=== PATIENT | male | born 1955 | race Caucasian/White ===

== ENCOUNTER → 2017-07-13 | Outpatient (CLI) | payer BC ==
--- NOTE | 2017-07-13 14:26 | US ---
EXAMINATION TYPE: US abdomen complete DATE OF EXAM: 07/13/2017 COMPARISON: US abdomen 2015 CLINICAL HISTORY: R74.8 Abnormal levels of other serum enzymes. Occasional left flank pain, history o f cholecystectomy EXAM MEASUREMENTS: Liver Length: 17.7 cm Gallbladder Wall: surgically absent CBD: 0.4 cm Spleen: 11.1 cm Right Kidney: 11.2 x 4.8 x 5.7 cm Left Kidney: 11.6 x 5.4 x 5.8 cm Pancreas: visualized portions wnl, limited by overlying midline bowel gas Liver: measures in upper limits of normal, heterogeneous, increased attenuation, increased echogenic ity Gallbladder: surgically absent Evidence for sonographic Burt's sign: no CBD: visualized portions wnl, limited by overlying bowel gas Spleen: visualized portions wnl, limited by rib shadowing Right Kidney: wnl Left Kidney: 1.2cm cystic lesion mid pole is likely a simple cyst, and cortical medullary different iation is maintained bilaterally. Upper IVC: wnl Abd Aorta: visualized portions wnl, limited by overlying midline bowel gas There is no ascites evident. IMPRESSION: Correlate for hepatic steatosis, hepatocellular disease. Suspect hepatomegaly.
== END | disposition home or self-care (01) ==
LOC: RADUSWWP 10:48
PROVIDERS: ATTEND Internal Medicine
DX: R74.8 Abnormal levels of other serum enzymes (principal)
CPT/HCPCS: 76700

== ENCOUNTER 2017-11-23 09:52 | Day surgery (SDC) | payer BC ==
[2017-11-19 15:58] VITALS: BMI 26.9
[~2017-11-23 09:52] MED LIST: LACTATED RINGERS 1,000 ML IV SCH
[2017-11-23 10:47] VITALS: TEMP 98
[2017-11-23] MEDS ORDERED: LIDOCAINE 1% 20 ML VIAL (10MG/ML) FOR IV START INTRADERMA ONE (10:55)
[2017-11-23] MEDS ORDERED: PROPOFOL 10 MG/ML 20 ML VIAL IV ONE (11:07)
[2017-11-23] MEDS ORDERED: MIDAZOLAM 2 MG/2 ML VIAL ONE (11:07)
[2017-11-23] MEDS ORDERED: fentaNYL (PF) 50 MCG/ML 2 ML AMP ONE (11:07)
[2017-11-23 11:42] VITALS: RESP 18
--- NOTE | 2017-11-23 11:51 | P.PCN ---
Date of Procedure: 11/23/17 Procedure(s) Performed: Procedures: 1. Esophagogastroduodenoscopy and biopsy. 2. Colonoscopy and polypectomy. Preoperative diagnosis: Reflux symptoms despite therapy and history of colon polyps. Postoperative diagnosis: 1. Small sliding hiatal hernia with no obvious esophagitis or complicated reflux disease. 2. Mild antral gastritis. 3. Multiple small colon polyps snared but no large polyps or cancer. Preparation: HalfLytely prep. Sedation: Was provided by anesthesia. Brief clinical history: The patient is a 62-year-old male who is scheduled for this evaluation because of history of chronic reflux. The patient has been taking Protonix for several years and has intermittent breakthrough symptoms but no dysphagia, bleeding or weight loss. In addition, he has history of polyps. His last colonoscopy was in 2008. The patient has no bowel complaints or bleeding. Procedure: With the patient on his left lateral decubitus position and after informed consent and adequate sedation, I passed the Olympus-GIF 160 video upper endoscope through the cricopharyngeus down the esophagus. The esophagus did not show any obvious erosions or ulcers. No strictures or Smith's esophagus. There was a small sliding hiatal hernia and none sticky whitish material probably representing food debris. The endoscope was then passed into the stomach which was insufflated with air and inspected in detail including the retroflex view in the cardia. There was some minimal mottling and erythema in the antrum but no ulcers or erosions. Pyloric channel, duodenal bulb, post bulbar area and descending duodenum appeared within normal limits. Because of his symptoms, I obtained biopsies from the duodenum, antrum and esophagus then the endoscope was withdrawn and I proceeded with the colonoscopy. Perianal area did not show any fissures or fistulas. There were no masses felt on digital rectal examination. The Olympus CFQ 160L video colonoscope was then inserted in the rectum in the usual fashion and advanced to the cecum. There were 2 small distal sigmoid polyps and one small polyp around the hepatic flexure and a small polyp in the cecum and all 4 polyps were snared and retrieved by suction. There were no large polyps or cancer or any obvious diverticular disease or mucosal abnormalities. I retroflexed the endoscope in the rectum before the endoscope was withdrawn. The patient tolerated the procedure well. Plan: The patient was reassured. Discussed antireflux diet and measures. Will await pathology results and I anticipate repeating his colonoscopy in 5 years. He will follow up with you as planned and I will be happy to see in the office if his symptoms persist.
[2017-11-23 12:02] VITALS: BP 154/78; PULSE 78
== END 2017-11-23 12:24 | disposition home or self-care (01) ==
LOC: ORWHC2ENDO 09:52
DX: Z12.11 Encounter for screening for malignant neoplasm of colon (principal); D12.0 Benign neoplasm of cecum; D12.3 Benign neoplasm of transverse colon; D12.5 Benign neoplasm of sigmoid colon; K29.50 Unspecified chronic gastritis without bleeding; K21.9 Gastro-esophageal reflux disease without esophagitis; K44.9 Diaphragmatic hernia without obstruction or gangrene; M19.90 Unspecified osteoarthritis, unspecified site; I10 Essential (primary) hypertension; E78.5 Hyperlipidemia, unspecified; Z88.2 Allergy status to sulfonamides; Z86.010 Personal history of colon polyps; Z79.82 Long term (current) use of aspirin; Z79.899 Other long term (current) drug therapy
CPT/HCPCS: 88305; 45385; 43239; J2250; J3010; J2704

== ENCOUNTER → 2019-02-28 | Outpatient (CLI) | payer MEDICARE, BC ==
--- NOTE | 2019-03-01 07:22 | US ---
EXAMINATION TYPE: US venous doppler duplex LE RT DATE OF EXAM: 02/28/2019 4:57 PM COMPARISON: NONE CLINICAL HISTORY: I80.9 Phlebitis and thrombophlebitis of unspecifie. arthritis on right knee, pain, no h/o dvt SIDE PERFORMED: Right TECHNIQUE: The lower extremity deep venous system is examined utilizing real time linear array sonog avani with graded compression, doppler sonography and color-flow sonography. VESSELS IMAGED: External Iliac Vein (EIV) Common Femoral Vein Deep Femoral Vein Greater Saphenous Vein * Femoral Vein Popliteal Vein Small Saphenous Vein * Proximal Calf Veins (* superficial vessels) Grayscale, color doppler, spectral doppler imaging performed of the deep veins of the right lower ext remity. There is normal flow, compressibility, vascular waveforms. Right Leg: Appears negative for DVT called cell number on order and left voice message IMPRESSION: No sonographic evidence of deep venous thrombosis within the right lower extremity.
== END | disposition home or self-care (01) ==
LOC: RADUSWWP 16:38
PROVIDERS: ATTEND Physical Medicine & Rehabilitation
DX: M17.0 Bilateral primary osteoarthritis of knee (principal); I80.9 Phlebitis and thrombophlebitis of unspecified site; M43.16 Spondylolisthesis, lumbar region; M47.816 Spondylosis without myelopathy or radiculopathy, lumbar region; M51.26 Other intervertebral disc displacement, lumbar region; M51.36 Other intervertebral disc degeneration, lumbar region; M54.16 Radiculopathy, lumbar region; M48.062 Spinal stenosis, lumbar region with neurogenic claudication

== ENCOUNTER 2021-03-11 07:00 | Day surgery (SDC) | payer MEDICARE, BC ==
[2021-03-07 15:13] VITALS: BMI 25.0
[~2021-03-11 07:00] MED LIST changes: +LIDOCAINE 1% (10MG/ML) FOR IV START INTRADERMA PRN
[2021-03-11 07:41] VITALS: TEMP 97.2
[2021-03-11] MEDS ORDERED: LABETALOL 5 MG/ML VIAL MDV ONE (08:11)
[2021-03-11] MEDS ORDERED: PROPOFOL 10 MG/ML 20 ML VIAL IV ONE (08:11)
[2021-03-11] MEDS ORDERED: LIDOCAINE 1% INJ 10MG/ML (20 ML MDV) ONE (08:11)
--- NOTE | 2021-03-11 08:39 | P.PCN ---
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 He and underwent an Upper endoscopy done at [facility] and was noted to have esophageal varices for which she underwent esophageal variceal ligation. He scheduled for repeat upper endoscopy as a part of follow- up of esophageal varices.. PROCEDURE PERFORMED: Esophagogastroduodenoscopy with esophageal variceal ligation PREOPERATIVE DIAGNOSIS: Follow-up esophageal varices. IV sedation per anesthesia. PROCEDURE: After informed consent was obtained, the patient was brought into the endoscopy unit. IV sedation was administered by Anesthesia under continuous monitoring. Initially the Olympus GIF-140 video endoscope was inserted into the mouth. Esophagus intubated without any difficulty. It was gradually advanced into the stomach and duodenum and carefully examined. The bulb and the second part of the duodenum appeared normal. The scope at this time was withdrawn to the stomach, adequately insufflated with air, and upon careful examination, mucosa of the antrum, we normal. In the body the stomach there was changes consistent with mild portal hypertensive gastropathy. On retroflexion the fundus appeared normal. The scope was then withdrawn into the esophagus. The GE junction was located at 39 cm from the incisors. There were large mid and distal esophageal varices seen. The rest of the esophagus appeared normal. There were no erosions or ulcerations seen . At this time the scope was removed and esophageal variceal ligation equipment was inserted inserted the tip of the scope and esophagus intubated without any difficulty and using suction total of 5 bands were deployed in the mid and distal esophageal varices. The patient tolerated the procedure well. IMPRESSION: 1. Large mid and distal esophageal varices status post variceal ligation as described above. 2. Mild portal hypertensive gastropathy. RECOMMENDATIONS: The findings of this examination were discussed with the patient as well as his family. He will continue on proton 10 mg 3 times daily and will plan a repeat upper endoscopy in 6 months..
[2021-03-11] MEDS ORDERED: hydrALAZINE HCL 20 MG/ML 1 ML VIAL ONE (09:14)
[2021-03-11] MEDS: hydrALAZINE HCL 20 MG/ML 1 ML VIAL IV ONE ×2 (09:20→09:30)
[2021-03-11 09:30] VITALS: RESP 16
[2021-03-11 10:01] VITALS: BP 182/77; PULSE 98
== END 2021-03-11 10:19 | disposition home or self-care (01) ==
LOC: ORWHC2ENDO 07:00
PROVIDERS: ATTEND Internal Medicine Gastroenterology
DX: K70.30 Alcoholic cirrhosis of liver without ascites (principal); I85.10 Secondary esophageal varices without bleeding; K76.6 Portal hypertension; K31.89 Other diseases of stomach and duodenum; I10 Essential (primary) hypertension; E78.5 Hyperlipidemia, unspecified; Z79.899 Other long term (current) drug therapy
CPT/HCPCS: 43255; J0360; J2001; J2704

== ENCOUNTER 2021-08-26 07:41 | Day surgery (SDC) | payer MEDICARE, BC ==
[2021-08-25 12:45] VITALS: BMI 26.6
[~2021-08-26 07:41] MED LIST changes: -LIDOCAINE 1% (10MG/ML) FOR IV START INTRADERMA PRN
[2021-08-26 08:07] VITALS: TEMP 97.8
[2021-08-26] MEDS ORDERED: PROPOFOL 10 MG/ML 20 ML VIAL IV ONE (08:47)
--- NOTE | 2021-08-26 09:01 | P.PCN ---
Date of Procedure: 08/26/21 Procedure(s) Performed: BRIEF HISTORY: Patient is a 66-year-old, pleasant, white male with history of colic cirrhosis of the liver and prior history of esophageal variceal bleeding is scheduled for an upper endoscopy with variceal ligation. Last EGD with variceal ligation was in February 2021.. PROCEDURE PERFORMED: Esophagogastroduodenoscop with variceal ligation y. PREOPERATIVE DIAGNOSIS: . Follow-up esophageal varices IV sedation per anesthesia. PROCEDURE: After informed consent was obtained, the patient was brought into the endoscopy unit. IV sedation was administered by Anesthesia under continuous monitoring. Initially the Olympus GIF-140 video endoscope was inserted into the mouth. Esophagus intubated without any difficulty. It was gradually advanced into the stomach and duodenum and carefully examined. The bulb and the second part of the duodenum appeared normal. The scope at this time was withdrawn to the stomach, adequately insufflated with air, and upon careful examination, mucosa of the antrum, body, anus consistent with portal hypertensive gastropathy. Mucosa of the cardia and the fundus appeared normal. gastric varices identified.The scope was then withdrawn into the esophagus. The GE junction was located at 39 cm from the incisors. . A small mid and distal esophageal varices seen.The esophagus appeared normal. There were no erosions or ulcerations seen at this time the scope was removed and esophageal variceal ligation equipment was introduced onto the tip of the scope and esophagus reintubated without any difficulty. The scope was gradually advanced into the distal esophagus. Total of 4 bands were deployed in the mid and distal esophageal varices. Patient tolerated the procedure well. IMPRESSION: 1. Small mid and distal esophageal varices status postligation as described above 2. Moderate portal hypertensive gastropathy. RECOMMENDATIONS: The findings of this examination were discussed with the patient [as well as his family. He was advised to continue with Inderal 10 mg 3 times daily and will plan a repeat upper endoscopy with variceal ligation in 1 year.
[2021-08-26] MEDS ORDERED: hydrALAZINE HCL 20 MG/ML 1 ML VIAL ONE (09:32)
[2021-08-26] MEDS ORDERED: hydrALAZINE HCL 20 MG/ML 1 ML VIAL IV ONE ×2 (09:35→09:55)
[2021-08-26 09:44] VITALS: RESP 16
[2021-08-26 10:09] VITALS: BP 183/72; PULSE 74
== END 2021-08-26 10:30 | disposition home or self-care (01) ==
LOC: ORWHC2ENDO 07:41
PROVIDERS: ATTEND Internal Medicine Gastroenterology
DX: I85.00 Esophageal varices without bleeding (principal); K74.60 Unspecified cirrhosis of liver; K76.6 Portal hypertension; K31.89 Other diseases of stomach and duodenum
CPT/HCPCS: 43244; J0360; J2704

== ENCOUNTER 2021-10-15 05:52 | Day surgery (SDC) | payer MEDICARE, BC ==
[2021-10-10 15:37] VITALS: BMI 27.3
--- NOTE | 2021-10-14 19:20 | HP ---
HISTORY AND PHYSICAL DATE OF SURGERY: 10/15/2021 Dion Kennedy is a 66-year-old gentleman seen with progressive symptomatic left knee osteoarthritis. We discussed options for treatment. He elected to proceed with left total knee arthroplasty. Consent regarding the procedure was obtained. Clearance was provided. PAST MEDICAL HISTORY: Hypertension, hyperlipidemia, gastroesophageal reflux disease. PAST SURGICAL HISTORY: Cholecystectomy, knee arthroscopy, wisdom tooth extraction. DAILY MEDICATIONS: Allopurinol, losartan, omeprazole, vitamins. ALLERGIES: SULFA. SOCIAL HISTORY: He denies tobacco use. PHYSICAL EVALUATION OF THE LEFT KNEE: His range of motion is zero to 120. He has a large effusion. Tenderness, medial joint line, with a positive medial Pepe's. Ligaments stable. Hip rotation without pain. Distal neurovascular exam intact. Radiographs of the left knee revealed severe osteoarthritic changes. IMPRESSION: 1. Left knee osteoarthritis. 2. Hypertension. 3. Hyperlipidemia. 4. Gastroesophageal reflux disease. PLAN: Left total knee arthroplasty. MMODL / IJN: [id number] /
[~2021-10-15 05:52] MED LIST changes: +ACETAMINOPHEN TAB 500 MG TAB PO PRN; +DEXAMETHASONE SOD PHOSPHATE 4 MG/ML 1 ML VIAL IV ONE; +LIDOCAINE 1% (10MG/ML) FOR IV START INTRADERMA PRN; +MELOXICAM 7.5 MG TAB PO PRN; +MIDAZOLAM 2 MG/2 ML VIAL IV PRN; +ONDANSETRON 4 MG/2 ML VIAL IVP ONE; +TRANEXAMIC ACID IN NACL,ISO-OS 1,000 MG in SALINE 1 100ML.BAG IVPB PRN
[2021-10-15] MEDS ORDERED: fentaNYL (PF) 50 MCG/ML 2 ML AMP IVP PRN (07:00)
[2021-10-15] MEDS ORDERED: HYDROmorphone 0.5 MG/0.5 ML SYRINGE IVP PRN ×4 (07:00→09:18)
[2021-10-15] MEDS ORDERED: MIDAZOLAM 2 MG/2 ML VIAL IVP ONE (07:09)
[2021-10-15] MEDS ORDERED: fentaNYL (PF) 50 MCG/ML 2 ML AMP IVP ONE (07:09)
[2021-10-15] MEDS ORDERED: fentaNYL (PF) 50 MCG/ML 2 ML AMP ONE (07:26)
[2021-10-15] MEDS ORDERED: PHENYLEPHRINE-0.9% NACL SYG 1,000 MCG/10 ML SYRINGE ONE (07:26)
[2021-10-15] MEDS ORDERED: HYDROmorphone (PF) 1 MG/ML ONE (07:26)
[2021-10-15] MEDS ORDERED: ROPIVACAINE 5 MG/ML 30 ML VIAL ONE (07:26)
[2021-10-15] MEDS ORDERED: PROPOFOL 10 MG/ML 20 ML VIAL IV ONE (07:26)
[2021-10-15] MEDS ORDERED: SUCCINYLCHOLINE CHLORIDE 100 MG/5 ML SYR IV ONE (07:26)
[2021-10-15] MEDS ORDERED: MIDAZOLAM 2 MG/2 ML VIAL ONE (07:26)
[2021-10-15] MEDS ORDERED: TRANEXAMIC ACID IN NACL,ISO-OS 1,000 MG/100 ML BAG ONE (07:26)
[2021-10-15] MEDS ORDERED: HYDROcodone/APAP 7.5-325MG 1 EACH TAB PO PRN (09:18)
[2021-10-15] MEDS ORDERED: NALOXONE 0.4 MG/ML 1 ML VIAL IV PRN (09:18)
[2021-10-15] MEDS ORDERED: ONDANSETRON 4 MG/2 ML VIAL IVP PRN (09:18)
[2021-10-15] MEDS ORDERED: HYDROcodone/APAP 5-325MG 1 EACH TAB PO PRN (09:18)
--- NOTE | 2021-10-15 09:18 | P.OP ---
Date of Procedure: 10/15/21 Preoperative Diagnosis: Left knee osteoarthritis Postoperative Diagnosis: Left knee osteoarthritis Procedure(s) Performed: Left total knee arthroplasty Implants: 1. Depuy attune size 6 left cruciate retaining cemented femur 2. Depuy attune size 7 fixed bearing cemented tibial baseplate 3. Depuy attune size 6 fixed bearing cruciate retaining 14 mm polyethylene tibial insert 4. Depuy attune 38 mm all polyethylene cemented patella Anesthesia: GETA, regional (Adductor canal catheter, Ipack block) Surgeon: Damien Bishop Director Customer #1: Gamaliel Ferraro Estimated Blood Loss (ml): 42 Pathology: other (Bone) Condition: stable Disposition: PACU Indications for Procedure: 66-year-old patient seen with symptomatic left knee osteoarthritis. After treatment options were discussed, he elected to proceed with total knee art hroplasty. Operative Findings: See description of procedure Description of Procedure: Patient was taken to the operative suite after having an adductor canal catheter placed by the department of anesthesia as well as an Ipack block for postoperative pain management. Patient underwent a general anesthetic by the department of anesthesia. Patient was given preoperative IV intake antibiotics and TXA. A well-padded tourniquet was placed about the [] lower extremity. The lower extremity was then prepped and draped in the normal sterile orthopedic fashion. The extremity was elevated, a tourniquet was insufflated to 300. A standard anterior incision was made sharply through skin. Dissection was taken down through the subcutaneous soft tissues down to the extensor mechanism. A medial arthrotomy was performed, patella was everted and knee was flexed. There was advanced osteoarthritis noted. I introduced my distal intramedullary femor al drill. I then introduced the distal femoral cutting jig. Demar SHABAZZ secured the cutting jig with 2 pins. I held retractors in position while Demar SHABAZZ performed the distal femoral resection through the guide area we now removed her distal femoral cutting guide. We now placed our 4-in-1 femoral cutting block and positioned and it was secured with 2 pins by Demar SHABAZZ while I held the block in position. The distal femoral finishing was now completed. A proximal tibial cutting guide was positioned. I held the guide in the appropriate position with both hands well Demar SHABAZZ inserted stabilizing pins into the guide. Proximal tibial cut was made. We now placed a trial femoral component into position, along with an appropriate size tibial tray and insert. We now took the knee through range of motion and had full extension good flexion and good overall soft tissue balance noted. The patella was everted and stabilized with 2 towel clips held by Demar SHABAZZ while I performed a flush with patellar quad tendon utilizing a fresh sawblade. We templated the patella, appropriate drill holes were made. An appropriate trial patella was positioned, knee was taken through full range of motion with the patella tracking very nicely. The trial patella was removed. Drill holes were made through the femoral component. All trial components were removed after marking off the appropriate rotation of the tibia. Retractors were now positioned along the proximal tibia. An appropriate keel punch was made with the appropriate size tibial guide by myself on Demar SHABAZZ assisted by holding retractors. At this point appropriate size implants were chosen and opened. The joint was irrigated copiously with pulse lavage mechanical irrigation. The posterior capsule was infiltrated with local analgesic. The wound was irrigated with pulse lavage mechanical irrigation. We mixed antibiotic methylmethacrylate. We placed the knee into flexion. We placed multiple retractors assisted by Demar SHABAZZ to expose the proximal tibia. Once the methyl methacrylate was ready, the tibial component was cemented into place removing any excess methylmethacrylate form by both myself and Demar SHABAZZ. The femoral component was cemented into place removing the removing any excess methylmethacrylate performed by both myself and Demar SHABAZZ. We then inserted the appropriate size polyethylene tibial insert. We made sure that it was locked into position. We took the knee into full extension, and then back in a flexion making sure we had removed any excess methylmethacrylate. The patellar component was then cemented down and secured with clamp. Excess methylmethacrylate removed. We kept the knee in full extension, patellar clamp in position until methylmethacrylate had hardened. Once it had hardened the patellar clamp was removed. The knee was taken through full range of motion. The patella tracked nicely. There was good soft tissue balancing. The tourniquet was now released. Additional hemostasis was achieved via electrocautery. A second gram of TXA was given. The wound again was irrigated with pulse lavage mechanical irrigation. The superficial soft tissues were infiltrated local analgesic. The extensor mechanism was repaired with Ethibond. We checked the repair with range of motion and it was stable. The subcutaneous soft tissues were repaired with Vicryl in layers. The skin was approximated with pernio/Dermabond. Sterile dressings were applied followed by loose web roll and Todd bandage. The patient was transferred to a bed, and taken to recovery in stable and satisfactory condition. Demar SHABAZZ assisted with this complex procedure.
[2021-10-15 09:40] VITALS: TEMP 97.5
[2021-10-15] MEDS ORDERED: ROPIVACAINE 0.2%-NS ON-Q PUMP 2 MG/ML EACH MISCELLANE ONE (09:51)
--- NOTE | 2021-10-15 09:56 | P.ANPRN ---
Procedure Note - Anesthesia - Nerve Block Performed Left Adductor Canal Infusion Time Out Performed: Yes (0708) Date of Procedure: 10/15/21 Procedure Start Time: 07:09 Procedure Stop Time: 07:14 Location of Patient: PreOp Indication: Acute Post-Operative Pain, Requested by Surgeon Specifically requested for management of pain by DrIrma: Damien Bishop Sedation Type: Sedate with meaningful contact maintained Preparation: Sterile Prep, Sterile Dressing Position: Supine Catheter Depth at Skin (cm): 7 Catheter: Indwelling Needle Types: Pajunk Needle Gauge: 21 Ultrasound used to visualize needle placement: Yes Ultrasound used to observe medication spread: Yes Injectate: 0.5% Ropivacaine (see comment for volume) (20CC) Blood Aspirated: No Pain Paresthesia on Injection Noted: No Resistance on Injection: Normal Image Stored and Saved: Yes Events: Uneventful and Well Tolerated
--- NOTE | 2021-10-15 09:57 | P.ANPRN ---
Procedure Note - Anesthesia - Nerve Block Performed Left iPack Single Time Out Performed: Yes (708) Date of Procedure: 10/15/21 Procedure Start Time: 07:15 Procedure Stop Time: 07:19 Location of Patient: PreOp Indication: Acute Post-Operative Pain, Requested by Surgeon Specifically requested for management of pain by DrIrma: Damien Bishop Sedation Type: Sedate with meaningful contact maintained Preparation: Sterile Prep Position: Supine Catheter: None Needle Types: Pajunk Needle Gauge: 21 Ultrasound used to visualize needle placement: Yes Ultrasound used to observe medication spread: Yes Injectate: 0.5% Ropivacaine (see comment for volume) (20CC) Blood Aspirated: No Pain Paresthesia on Injection Noted: No Resistance on Injection: Normal Image Stored and Saved: Yes Events: Uneventful and Well Tolerated
[2021-10-15] MEDS ORDERED: hydrALAZINE HCL 20 MG/ML 1 ML VIAL IVP ONE (10:00)
--- NOTE | 2021-10-15 10:09 | XR ---
EXAMINATION TYPE: XR knee limited LT DATE OF EXAM: 10/15/2021 COMPARISON: None HISTORY: Postop left knee TECHNIQUE: 2 view left knee FINDINGS: Tibial femoral compartments are present. Post surgical soft tissue changes are present. No acute fractures or dislocations are evident. Vascular calcification is noted. IMPRESSION: 1. No acute fractures post left knee replacement.
[2021-10-15] MEDS: LACTATED RINGERS 1,000 ML IV ONE ×2 (10:11→10:27)
[2021-10-15] MEDS ORDERED: LABETALOL 5 MG/ML VIAL MDV IVP ONE (11:25)
[2021-10-15] MEDS ORDERED: ONDANSETRON 4 MG/2 ML VIAL IVP ONE (12:44)
[2021-10-15 13:58] VITALS: BP 183/79; PULSE 78; RESP 17
== END 2021-10-15 14:15 | disposition home health service (06) ==
LOC: OR 05:52
PROVIDERS: ATTEND Orthopaedic Surgery
DX: M17.12 Unilateral primary osteoarthritis, left knee (principal); I10 Essential (primary) hypertension; E78.5 Hyperlipidemia, unspecified; K21.9 Gastro-esophageal reflux disease without esophagitis; K74.60 Unspecified cirrhosis of liver; Z90.49 Acquired absence of other specified parts of digestive tract; Z98.890 Other specified postprocedural states; Z79.899 Other long term (current) drug therapy; Z88.2 Allergy status to sulfonamides
CPT/HCPCS: 97116; 97162; 64999; 64448; 76942; 88300; 73560; 27447; C1776; C1713 ×2; J2250; J0360; J1100; J0690; J2405; J3010; J1170; J2795 ×2; J2370; J0330; J2704

== ENCOUNTER 2023-02-02 10:20 | Day surgery (SDC) | payer MEDICARE, BC ==
[2023-01-28 15:51] VITALS: BMI 28.1
[~2023-02-02 10:20] MED LIST changes: -ACETAMINOPHEN TAB 500 MG TAB PO PRN; -DEXAMETHASONE SOD PHOSPHATE 4 MG/ML 1 ML VIAL IV ONE; -MELOXICAM 7.5 MG TAB PO PRN; -MIDAZOLAM 2 MG/2 ML VIAL IV PRN; -ONDANSETRON 4 MG/2 ML VIAL IVP ONE; -TRANEXAMIC ACID IN NACL,ISO-OS 1,000 MG in SALINE 1 100ML.BAG IVPB PRN
[2023-02-02 11:35] LABS: Glucose,Whole Blood 141 mg/dL (70-110)
[2023-02-02 11:37] VITALS: RESP 16; TEMP 98
[2023-02-02] MEDS ORDERED: PROPOFOL 10 MG/ML 20 ML VIAL IV ONE (12:24)
[2023-02-02] MEDS ORDERED: LIDOCAINE 2% (PF) 20 MG/ML 5 ML VIAL ONE (12:24)
--- NOTE | 2023-02-02 12:49 | P.PCN ---
Date of Procedure: 02/02/23 Procedure(s) Performed: Brief history: Patient is a pleasant 67-year-old white male scheduled for an elective upper endoscopy as well as colonoscopy as a part of evaluation of esophageal varices for which she underwent variceal ligation in about 2021. He scheduled for colonoscopy as part of evaluation of prior history of colon polyps. Last colonoscopy was 5 years ago. Procedure performed: Esophagogastroduodenoscopy with variceal ligation Colonoscopy with snare polypectomy Preoperative diagnosis: Follow-up esophageal varices History of colon polyps Anesthesia: MAC Procedure: After informed consent was obtained from the patient was brought into the endoscopy unit and IV sedation was administered by anesthesia under continuous monitoring. Initially upper endoscopy was done. The Olympus GF 160 video endoscope was inserted inserted into the mouth and esophagus intubated without any difficulty and was gradually advanced into the stomach and duodenum and carefully examined. The bulb and second part of the duodenum appeared normal. The scope was then withdrawn into the stomach adequately insufflated with air and upon careful examination the antrum and body, cardia and fundus had changes consistent with mild to moderate portal hypertensive gastropathy.. The scope was then withdrawn into the esophagus. The GE junction was located at 40 cm to the incisors. It appeared regular . There were large mid and distal esophageal varices identified with red emil markings. Rest of the esophagus appeared normal. At this time the scope was removed and esophageal variceal ligation equipment was introduced the tip of the scope and esophagus intubated without any difficulty and was gradually advanced into the distal esophagus. Using suction total of 5 bands were deployed in the distal and mid esophageal varices in a spiral fashion. Patient tolerated the procedure well. At this time the patient continued to remain sedation. Initial digital rectal examination was normal. Olympus CF 160 video colonoscope was then inserted into the rectum and gradually advanced to the cecum without any difficulty. Careful examination was performed as the scope was gradually being withdrawn. The prep was excellent. The cecum, ascending colon, appeared normal. In the transverse colon there was a 5 mm polyp removed by snare polypectomy. In the ascending colon there was a 5 mm polyp removed by snare polypectomy. transverse colon, descending colon, sigmoid colon and rectum appeared normal. Retroflexion was performed in the rectum and grade 2 internal hemorrhoids were noted. Patient tolerated the procedure well. Impression: 1. Upper endoscopy revealed large mid and distal esophageal varices with red emil case status post variceal ligation as described above and mild to moderate portal hypertensive gastropathy 2. Colonoscopy revealed 5 mm ascending colon polyp and 5 mm transverse colon polyp status post polypectomy and grade 2 internal hemorrhoids Recommendations: Findings of this examination were discussed with the patient as well as his family. He was advised to be on a soft diet. Continue with Inderal 10 mg 3 times daily. Repeat EGD in 3 months. Repeat colonoscopy in 5 years.
[2023-02-02 13:35] VITALS: BP 178/77; PULSE 70
== END 2023-02-02 14:13 | disposition home or self-care (01) ==
LOC: ORWHC2ENDO 10:20
PROVIDERS: ATTEND Internal Medicine Gastroenterology
DX: Z12.11 Encounter for screening for malignant neoplasm of colon (principal); I85.00 Esophageal varices without bleeding; D12.2 Benign neoplasm of ascending colon; Z86.010 Personal history of colon polyps; K76.6 Portal hypertension; K64.1 Second degree hemorrhoids; Z88.2 Allergy status to sulfonamides; I10 Essential (primary) hypertension; E78.5 Hyperlipidemia, unspecified; F17.210 Nicotine dependence, cigarettes, uncomplicated; E11.9 Type 2 diabetes mellitus without complications; K21.9 Gastro-esophageal reflux disease without esophagitis; Z79.84 Long term (current) use of oral hypoglycemic drugs; Z79.83 Long term (current) use of bisphosphonates; Z79.899 Other long term (current) drug therapy
CPT/HCPCS: 88305; 45385; 43244; J2704; J2001

== ENCOUNTER 2023-04-22 15:28 | Inpatient (IN) | payer MEDICARE, BC ==
[2023-04-22 23:02] LABS: Glucose,Whole Blood 136 mg/dL (70-110)
[2023-04-23] MEDS: ACETAMINOPHEN TAB 325 MG TAB PO PRN ×3 (02:02→22:14)
[2023-04-23 05:53] LABS: Glucose,Whole Blood 138 mg/dL (70-110)
[2023-04-23] MEDS: INSULIN ASPART (NovoLOG) 100 UNIT/ML VIAL SQ SCH ×4 (06:05→22:14)
[2023-04-23 10:53] LABS: Anisocytosis Slight; Basophils # (A) 0.1 k/uL (0-0.2); Basophils % (A) 1 %; Eosinophils # (A) 0.3 k/uL (0-0.7); Eosinophils % (A) 4 %; HCT 25.4 % (39.0-53.0); HGB 8.1 gm/dL (13.0-17.5); Hypochromasia Marked; Lymphocytes # (A) 0.8 k/uL (1.0-4.8); Lymphocytes % (A) 13 %; MCH 26.6 pg (25.0-35.0); MCHC 31.7 g/dL (31.0-37.0); MCV 83.9 fL (80.0-100.0); Mean Platelet Volume 9.1; Monocytes # (A) 0.3 k/uL (0-1.0); Monocytes % (A) 5 %; Neutrophils # (A) 4.1 k/uL (1.3-7.7); Neutrophils % (A) 73 %; Platelet Count 139 k/uL (150-450); Poikilocytosis Slight; RBC 3.03 m/uL (4.30-5.90); RDW 17.5 % (11.5-15.5); WBC 5.6 k/uL (3.8-10.6)
[2023-04-23] MEDS: PANTOPRAZOLE 40 MG TABLET PO SCH (10:58)
[2023-04-23] MEDS: LOSARTAN 50 MG TAB PO SCH ×2 (10:58→22:14)
[2023-04-23] MEDS: MULTIVITAMINS, THERA 1 EACH TAB PO SCH (10:58)
[2023-04-23] MEDS: ASPIRIN 81 MG PO SCH (10:58)
[2023-04-23] MEDS: atenoloL 50 MG TAB PO SCH (10:59)
[2023-04-23] MEDS: CHOLECALCIFEROL 25 MCG (1000 IU) TABLET PO SCH (10:59)
[2023-04-23] MEDS: ASCORBIC ACID 500 MG TAB PO SCH (10:59)
[2023-04-23 11:11] LABS: African American GFR (CKD) >90 (>60 ml/min/1.73 sqM); Anion Gap 7 mmol/L; Blood Urea Nitrogen 12 mg/dL (9-20); Calcium 7.8 mg/dL (8.4-10.2); Carbon Dioxide 18 mmol/L (22-30); Chloride 108 mmol/L (98-107); Glucose 122 mg/dL (74-99); Non-African American GFR(CKD) >90 (>60 ml/min/1.73 sqM); Potassium 3.1 mmol/L (3.5-5.1); Sodium 133 mmol/L (137-145)
[2023-04-23 12:20] LABS: Glucose,Whole Blood 121 mg/dL (70-110)
[2023-04-23] MEDS: POTASSIUM CHLORIDE ER 20 MEQ TAB.ER PO SCH ×2 (12:38→15:06)
--- NOTE | 2023-04-23 12:41 | P.HPIM ---
History of Present Illness H&P Date: 04/23/23 This is a 67-year-old male patient of Dr. Loli Campbell, patient has medical history of abdominal ascites and liver cirrhosis, chronic alcoholism, diabetes mellitus, hemorrhoids, gastroesophageal reflux disease. Patient follows with dr rocco turcios underwent upper and lower endoscopy in January of 2023 has history of esophageal varices which underwent banding in Jan as well. Has a history of left lower extremity total knee arthroplasty done a year ago, initially presented to [facility] with left lower extremity edema with concern for infected prosthetic of the left knee. He presented to [facility] with fevers progressive weakness and back pain. States fever was as high as 104. He was also anemic hemoglobin 6.5 requiring 2 unit of PRBC. Patient was found to have strep agalactaie bacteremia with features of sepsis over at [facility]. He was treated with IV ceftriaxone 2 grams. Patient also with recent influenza infection and hypoxia at [facility]. He had a venous doppler of the left leg at [facility] negative for acute DVT. He underwent arthrocentesis of the left knee joint effusion s howing 20,000 WBCs and suspicious for infected prosthesis was recommended to transfer to [facility] for further evaluation by Dr Bishop. Yesterday before transfer he underwent work up for abdominal ascites which he has undergo paracentesis in the past, he had an abdominal ultrasound showing significant amount of intraabdominal ascites. IR consulted. He is admitted to this hospital with consults placed to [place] and infectious disease. REVIEW OF SYSTEMS: CONSTITUTIONAL: No fever, no malaise, no fatigue. HEENT: No recent visual problems or hearing problems. Denied any sore throat. CARDIOVASCULAR: No chest pain, orthopnea, PND, no palpitations, no syncope. PULMONARY: No shortness of breath, no cough, no hemoptysis. GASTROINTESTINAL: No diarrhea, no nausea, no vomiting, no abdominal pain. NEUROLOGICAL: No headaches, no weakness, no numbness. HEMATOLOGICAL: Denies any bleeding or petechiae. GENITOURINARY: Denies any burning micturition, frequency, or urgency. MUSCULOSKELETAL/RHEUMATOLOGICAL: Denies any joint pain, swelling, or any muscle pain. ENDOCRINE: Denies any polyuria or polydipsia. The rest of the 14-point review of systems is negative. PHYSICAL EXAMINATION: GENERAL: The patient is alert and oriented x3, not in any acute distress. Well developed, well nourished. HEENT: Pupils are round and equally reacting to light. EOMI. No scleral icterus. No conjunctival pallor. Normocephalic, atraumatic. No pharyngeal erythema. No thyromegaly. CARDIOVASCULAR: S1 and S2 present. No murmurs, rubs, or gallops. PULMONARY: Chest is clear to auscultation, no wheezing or crackles. ABDOMEN: Soft, nontender, distended and soft, normoactive bowel sounds. No palpable organomegaly. MUSCULOSKELETAL: No joint swelling or deformity. EXTREMITIES: No cyanosis, clubbing, or pedal edema. NEUROLOGICAL: Gross neurological examination did not reveal any focal deficits. SKIN: No rashes. Assessment and Plan Strep Algalactaie bacteremia possible source of infection the left knee continue on the IV rocephin 2g was started on at [facility], ID consultation in place for further recommendations most recent blood culture showing clearing of the bacteremia. Sepsis source of infection possibly an infected left knee prosthesis s/p arthrocentesis of the left knee at [facility] orthopedic following History of esophageal varices with banding in january Hypokalemia patient will receive oral supplementation and repeat labs in the AM Hx of cirrhosis, abdominal ascites ultrasound showing significant ascites and IR consulted for possible paracentesis Hx of GERD Diabetes Mellitus type 2 hgb A1C 6.9 continue on accuchecks achs and sliding scale insulin. History of left TKA Hypertension continues on losartan BID and atenolol. Hemorrhoids Chronic alcohol use monitor for alcohol withdrawal Hx of gout continue on allopurinol, GI prophylaxis DVT prophylaxis Full Code The impression and plan of care has been dictated by Kyalh Adrian, Nurse Practitioner as directed. Dr. Danuta MD I have performed a history and physical examination and medical decision making of this patient, discussed the same with the dictator, and agree with the dictators assessment and plan as written, documented as a scribe. Based on total visit time, I have performed more than 50% of this visit. Past Medical History Past Medical History: Diabetes Mellitus, GERD/Reflux, Hyperlipidemia, Hypertension, Osteoarthritis (OA) Additional Past Medical History / Comment(s): GOUT. LOWER BACK PAIN. HX OF COLON POLYP. ARTHRITIS KNEES. HX ESOPHAGEAL VARICES WITH BANDING. History of Any Multi-Drug Resistant Organisms: None Reported Past Surgical History: Cholecystectomy, Joint Replacement, Orthopedic Surgery Additional Past Surgical History / Comment(s): Surgery for deviated septum, bilateral cataracts removed, right knee arthroscopy, wisdom teeth removed, EGD with ESOPHAGEAL BANDS at [place], COLONOSCOPIES, left knee replacement. Past Anesthesia/Blood Transfusion Reactions: No Reported Reaction Additional Past Anesthesia/Blood Transfusion Reaction / Comment(s): Woke up once when IV infiltrated during EGD. Past Psychological History: No Psychological Hx Reported Smoking Status: Former smoker Past Alcohol Use History: Occasional Additional Past Alcohol Use History / Comment(s): STARTED SMOKING AT AGE 18, QUIT AT AGE 22, SMOKED 1/2 PPD. Past Drug Use History: None Reported - Past Family History Mother Family Medical History: No Reported History Medications and Allergies Home Medications Medication Instructions Recorded Confirmed Type Colesevelam [Welchol] 1,875 tab PO AC-SUPPER 09/18/14 04/23/23 History allopurinoL [Zyloprim] 300 mg PO DAILY 09/18/14 04/23/23 History Multivitamin/Iron/Folic Acid 1 tab PO DAILY 11/19/17 04/22/23 History [Centrum Adults Tablet] Omeprazole 20 mg PO BID 03/07/21 04/22/23 History Losartan Potassium 50 mg PO BID 10/10/21 04/22/23 History atenoloL [Tenormin] 50 mg PO DAILY 10/10/21 04/22/23 History Ascorbic Acid [Vitamin C] 1,000 mg PO DAILY 01/28/23 04/22/23 History Aspirin [Adult Low Dose Aspirin EC] 81 mg PO DAILY 01/28/23 04/22/23 History Cholecalciferol [Vitamin D3 (25 50 mcg PO DAILY 04/22/23 04/22/23 History Mcg = 1000 Iu)] Allergies Allergy/AdvReac Type Severity Reaction Status Date / Time Sulfa (Sulfonamide Allergy Rash/Hives Verified 04/22/23 21:42 Antibiotics) Physical Exam Vitals: Vital Signs Temp Pulse Resp BP Pulse Ox 04/23/23 06:59 99.1 F 79 18 167/72 98 04/23/23 03:02 98.8 F 62 147/62 04/23/23 02:05 82 176/80 04/23/23 01:04 99.5 F 86 16 182/71 96 04/22/23 20:36 98.8 F 83 15 162/73 97 Intake and Output 04/22/23 04/23/23 04/23/23 22:59 06:59 14:59 Other: Voiding Method Urinal # Voids 2 # Bowel Movements 2 Weight 78 kg Results CBC & Chem 7: 04/23/23 10:36 04/23/23 10:36 Labs: Abnormal Lab Results - Last 24 Hours (Table) 04/22/23 04/23/23 Range/Units 23:00 05:52 POC Glucose (mg/dL) 136 H 138 H (70-110) mg/dL Thrombosis Risk Factor Assmnt - Choose All That Apply Each Factor Represents 1 point: Obesity (BMI >25), Sepsis (< 1month) Each Risk Factor Represents 2 Points: Age 61-74 years Thrombosis Risk Factor Assessment Total Risk Factor Score: 4 Thrombosis Risk Factor Assessment Level: Moderate Risk Assessment and Plan Time with Patient: Greater than 30
--- NOTE | 2023-04-23 14:47 | P.CNOR ---
History of Present Illness - HPI Consult date: 04/23/23 Requesting physician: Kylah Adrian Consult reason: other (suspected L knee prosthetic infection, tx from [facility]) History of present illness: Patient is a 67-year-old male who was transferred to [facility] this morning from [facility] due to concern for left knee prosthetic infection. Patient does have a past medical history significant for abdominal ascites, liver cirrhosis, chronic alcoholism, diabetes, hemorrhoids, GERD. Patient did have a left total knee arthroplasty performed in [place] [address] Bishop. Orthopedics was consulted due to concern for left knee prosthesis infection. Patient was seen at bedside this morning with present during e ncounter. Patient states on April 10 he did present to the hospital due to fever and chills and was found to have influenza and was sent home with antivirals. Patient then presented back to [facility] close to the end of the year due to continuing fevers. Patient states between and he did have some bilateral lower extremity swelling and bilateral swelling in both knees. Patient states he did have some difficulty in range of motion of both knees due to the swelling. Patient states that he was having a lot of low back pain at this time which was worse than knee pain. Patient says he never had any pain when flexing and extending the bilateral knees. On 04/21/2023, orthopedics at [facility] performed an aspiration of the left knee due to concern for infection and swelling. 20,000 white blood counts was resulted. Crystals were negative. I did talk with a staff member at [facility] lab and they did confirm that results of both the aerobic and anaerobic cultures of left knee resulted in no growth after 48 hours as of this morning around 10 AM. Patient states that the swelling in both knees has decreased over the past few days. Patient states he is able to walk around the room and bear weight on the bilateral lower extremities okay. Patient denies chest pain, nausea, vomiting, change in vision, shortness of breath, loss of bowel/bladder control. Past Medical History Past Medical History: Diabetes Mellitus, GERD/Reflux, Hyperlipidemia, Hypertension, Osteoarthritis (OA) Additional Past Medical History / Comment(s): GOUT. LOWER BACK PAIN. HX OF COLON POLYP. ARTHRITIS KNEES. HX ESOPHAGEAL VARICES WITH BANDING. History of Any Multi-Drug Resistant Organisms: None Reported Past Surgical History: Cholecystectomy, Joint Replacement, Orthopedic Surgery Additional Past Surgical History / Comment(s): Surgery for deviated septum, bilateral cataracts removed, right knee arthroscopy, wisdom teeth removed, EGD with ESOPHAGEAL BANDS at [place], COLONOSCOPIES, left knee replacement. Past Anesthesia/Blood Transfusion Reactions: No Reported Reaction Additional Past Anesthesia/Blood Transfusion Reaction / Comm: Woke up once when IV infiltrated during EGD. Past Psychological History: No Psychological Hx Reported Smoking Status: Former smoker Past Alcohol Use History: Occasional Additional Past Alcohol Use History / Comment(s): STARTED SMOKING AT AGE 18, QUIT AT AGE 22, SMOKED 1/2 PPD. Past Drug Use History: None Reported - Past Family History Mother Family Medical History: No Reported History Medications and Allergies Home Medications Medication Instructions Recorded Confirmed Type Colesevelam [Welchol] 1,875 tab PO AC-SUPPER 09/18/14 04/23/23 History allopurinoL [Zyloprim] 300 mg PO DAILY 09/18/14 04/23/23 History Multivitamin/Iron/Folic Acid 1 tab PO DAILY 11/19/17 04/22/23 History [Centrum Adults Tablet] Omeprazole 20 mg PO BID 03/07/21 04/22/23 History Losartan Potassium 50 mg PO BID 10/10/21 04/22/23 History atenoloL [Tenormin] 50 mg PO DAILY 10/10/21 04/22/23 History Ascorbic Acid [Vitamin C] 1,000 mg PO DAILY 01/28/23 04/22/23 History Aspirin [Adult Low Dose Aspirin EC] 81 mg PO DAILY 01/28/23 04/22/23 History Cholecalciferol [Vitamin D3 (25 50 mcg PO DAILY 04/22/23 04/22/23 History Mcg = 1000 Iu)] Allergies Allergy/AdvReac Type Severity Reaction Status Date / Time Sulfa (Sulfonamide Allergy Rash/Hives Verified 04/22/23 21:42 Antibiotics) Physical Examination Inspection: Bilateral lower extremity due present with edema especially in the cast and ankles bilaterally. There does appear to be a moderate effusion in the left knee. Left knee appears to present with normal skin tone/color. Negative for any drainage. Incision appears to be well-healed. Sensation: Equal, symmetric, bilaterally intact throughout the lower extremities. Palpation: Nontender to palpation throughout bilateral lower extremities. Nontender to palpation throughout the left knee on palpation. Left knee is lukewarm to the touch. Range of motion: Patient is able to flex left knee to about 110 while lying in bed. Patient does have full extension of left knee on exam. Patient does have good range of motion right knee on flexion extension Motor: 4/5 on resisted bilateral knee flexion/extension. Special tests: Negative Homans bilaterally. Neurovascular status: Radial pulses intact, 2+ bilaterally. Cap refill under 3 seconds in digits of lower extremities. Results - Labs Labs: Abnormal Lab Results - Last 24 Hours (Table) 04/22/23 04/23/23 04/23/23 Range/Units 23:00 05:52 10:36 RBC 3.03 L (4.30-5.90) m/uL Hgb 8.1 L (13.0-17.5) gm/dL Hct 25.4 L (39.0-53.0) % RDW 17.5 H (11.5-15.5) % Plt Count 139 L (150-450) k/uL Lymphocytes # 0.8 L (1.0-4.8) k/uL Sodium (137-145) mmol/L Potassium (3.5-5.1) mmol/L Chloride (98-107) mmol/L Carbon Dioxide (22-30) mmol/L Creatinine (0.66-1.25) mg/dL Glucose (74-99) mg/dL POC Glucose (mg/dL) 136 H 138 H (70-110) mg/dL Calcium (8.4-10.2) mg/dL 04/23/23 Range/Units 10:36 RBC (4.30-5.90) m/uL Hgb (13.0-17.5) gm/dL Hct (39.0-53.0) % RDW (11.5-15.5) % Plt Count (150-450) k/uL Lymphocytes # (1.0-4.8) k/uL Sodium 133 L (137-145) mmol/L Potassium 3.1 L (3.5-5.1) mmol/L Chloride 108 H (98-107) mmol/L Carbon Dioxide 18 L (22-30) mmol/L Creatinine 0.52 L (0.66-1.25) mg/dL Glucose 122 H (74-99) mg/dL POC Glucose (mg/dL) (70-110) mg/dL Calcium 7.8 L (8.4-10.2) mg/dL H & H 04/23/23 Range/Units 10:36 Hgb 8.1 L (13.0-17.5) gm/dL Hct 25.4 L (39.0-53.0) % Result Diagrams: 04/23/23 10:36 04/23/23 10:36 Assessment and Plan Assessment: 1. Left knee effusion; bilateral lower extremity edema 2. Multiple medical comorbidities Plan: 1. Left knee effusion; bilateral lower extremity edema - patient was examined bedside this morning. Patient does have good flexion/extension without pain during range of motion bilateral knees on exam. Left knee is lukewarm to the touch. normal skin tone/color. Negative for erythema. Incision is well- healed. Negative for any drainage. Arthrocentesis of the left knee performed at [facility] on 04/21/2023 showed white blood count of 20,000. Aerobic and anaerobic cultures results been no growth after 48 hours. I discussed the findings of the exam and labs with my attending, Dr. Bishop. At this time we are not recommending any orthopedic intervention. Very little concern for any joint infection in the left knee at this time. At this time we are recommending conservative measures with pain medication, ice and elevation as needed as well as physical therapy daily. We do recommend patient to follow- up in the outpatient setting with Dr. Bishop for continued evaluation. Orthopedics will develop as needed to see patient during his hospital. 2. Appreciate medical and ID management 3. Pain management - Tylenol 4. DVT prophylaxis - aspirin; heparin 5. GI prophylaxis - Protonix 6. PT/OT - weightbearing as tolerated with walker as needed 7. Encourage incentive spirometer use 8. Appreciate consult Time with Patient: Less than 30
[2023-04-23 16:32] LABS: Glucose,Whole Blood 134 mg/dL (70-110)
[2023-04-23] MEDS: COLESEVELAM 625 MG TAB PO SCH (19:37)
[2023-04-23 21:25] LABS: Glucose,Whole Blood 186 mg/dL (70-110)
[2023-04-23] MEDS: HEPARIN SODIUM,PORCINE 5,000 UNIT/ML 1 ML VIAL SQ SCH (22:13)
[2023-04-23] MEDS: guaiFENesin SYRUP 100MG/5ML 200 MG/10 ML CUP PO PRN (22:14)
--- NOTE | 2023-04-23 22:18 | P.CONS ---
History of Present Illness - Reason for Consult Consult date: 04/23/23 Possible infected left knee prosthesis Requesting physician: Kylah Adrian - Chief Complaint Left knee pain and swelling x days - History of Present Illness Patient is a 67-year-old male with a past medical history significant for chronic alcoholism cirrhosis diabetes mellitus reflux in this patient who did have a left knee arthroplasty done by Dr. Bishop patient recently presented to [facility] about a week ago for evaluation of fever progressive weakness and back pain patient was noticed to be febrile temperature 104 F and the patient did have a positive blood culture with a Streptococcus agalactiae after a week of investigation patient has been diagnosed with a possible left knee septic arthritis and the patient did have aspirate of the left knee that shows 20,000 white cells patient has been subsequently transferred to [facility] to be eval by orthopedic surgeon infectious disease was consulted for further management of antibiotic therapy, patient did mention he was having significant stiffness to the left knee leg area and it been going on for about a week denies any history of any trauma he did have some mobility to the left knee still having significant swelling along with some pain is mostly dull aching mild to moderate intensity without radiation he did have some swelling but no open wound or any drainage on presentation to the hospital the patient was afebrile did have a low-grade fever of 99.5 F after midnight patient was not tachycardic hypotensive or hypoxic did have a white count of 5.6 creatinine was 0.52 Review of Systems Positive point and negatives has been mentioned in the HPI, complete review of systems was performed and all other systems are negative Past Medical History Past Medical History: Diabetes Mellitus, GERD/Reflux, Hyperlipidemia, Hypertension, Osteoarthritis (OA) Additional Past Medical History / Comment(s): GOUT. LOWER BACK PAIN. HX OF COLON POLYP. ARTHRITIS KNEES. HX ESOPHAGEAL VARICES WITH BANDING. History of Any Multi-Drug Resistant Organisms: None Reported Past Surgical History: Cholecystectomy, Joint Replacement, Orthopedic Surgery Additional Past Surgical History / Comment(s): Surgery for deviated septum, bilateral cataracts removed, right knee arthroscopy, wisdom teeth removed, EGD w ith ESOPHAGEAL BANDS at [place], COLONOSCOPIES, left knee replacement. Past Anesthesia/Blood Transfusion Reactions: No Reported Reaction Additional Past Anesthesia/Blood Transfusion Reaction / Comm: Woke up once when IV infiltrated during EGD. Past Psychological History: No Psychological Hx Reported Smoking Status: Former smoker Past Alcohol Use History: Occasional Additional Past Alcohol Use History / Comment(s): STARTED SMOKING AT AGE 18, QUIT AT AGE 22, SMOKED 1/2 PPD. Past Drug Use History: None Reported - Past Family History Mother Family Medical History: No Reported History Medications and Allergies Home Medications Medication Instructions Recorded Confirmed Type Colesevelam [Welchol] 1,875 tab PO AC-SUPPER 09/18/14 04/23/23 History allopurinoL [Zyloprim] 300 mg PO DAILY 09/18/14 04/23/23 History Multivitamin/Iron/Folic Acid 1 tab PO DAILY 11/19/17 04/22/23 History [Centrum Adults Tablet] Omeprazole 20 mg PO BID 03/07/21 04/22/23 History Losartan Potassium 50 mg PO BID 10/10/21 04/22/23 History atenoloL [Tenormin] 50 mg PO DAILY 10/10/21 04/22/23 History Ascorbic Acid [Vitamin C] 1,000 mg PO DAILY 01/28/23 04/22/23 History Aspirin [Adult Low Dose Aspirin EC] 81 mg PO DAILY 01/28/23 04/22/23 History Cholecalciferol [Vitamin D3 (25 50 mcg PO DAILY 04/22/23 04/22/23 History Mcg = 1000 Iu)] Acetaminophen Tab [Tylenol] 650 mg PO Q6HR PRN tab 05/07/23 Rx Furosemide [Lasix] 40 mg PO BID #60 tablet 05/07/23 Rx Heparin Sodium,Porcine (1 ml) 5,000 unit SQ Q12HR each 05/07/23 Rx [Heparin Sodium] INSULIN ASPART (NovoLOG) [NovoLOG 0 unit SQ ACHS each 05/07/23 Rx (formulary)] Ipratropium-Albuterol Nebulize 3 ml INHALATION RT-QID PRN each 05/07/23 Rx [Duoneb 0.5 mg-3 mg/3 ml Soln] Lactulose [Cephulac] 30 gm PO BID ml 05/07/23 Rx Magnesium Hydroxide [Milk of 2,400 mg PO DAILY 30 Days #240 ml 05/07/23 Rx Magnesia] Magnesium Oxide [Mag-Ox] 400 mg PO BID tab 05/07/23 Rx Potassium Chloride [K-Tab ER] 20 meq PO BID #60 tab 05/07/23 Rx Sennosides-Docusate Sodium 2 each PO DAILY tab 05/07/23 Rx [Senokot-S] Simethicone 40 mg/0.6 ml Drops 40 mg PO QID #7 ml 05/07/23 Rx [Mylicon Drops] Spironolactone [Aldactone] 50 mg PO BID tab 05/07/23 Rx ceFAZolin [Kefzol] 2,000 mg IVPB Q8HR 42 Days #126 05/07/23 Rx each guaiFENesin SYRUP 100MG/5ML 200 mg PO Q6HR PRN ml 05/07/23 Rx [Robitussin] traMADol HCl [Ultram] 50 mg PO QID PRN #6 tab 05/07/23 Rx Allergies Allergy/AdvReac Type Severity Reaction Status Date / Time Sulfa (Sulfonamide Allergy Rash/Hives Verified 04/29/23 14:18 Antibiotics) Physical Exam Vitals: Vital Signs Temp Pulse Resp BP Pulse Ox 04/23/23 07:30 79 18 04/23/23 06:59 99.1 F 79 18 167/72 98 04/23/23 03:02 98.8 F 62 147/62 04/23/23 02:05 82 176/80 04/23/23 01:04 99.5 F 86 16 182/71 96 04/22/23 20:36 98.8 F 83 15 162/73 97 Intake and Output 04/22/23 04/23/23 04/23/23 22:59 06:59 14:59 Other: Voiding Method Urinal Urinal # Voids 2 # Bowel Movements 2 Weight 78 kg GENERAL DESCRIPTION: Elderly male lying in bed, no distress. No tachypnea or accessory muscle of respiration use. HEENT: Shows Pallor , no scleral icterus. Oral mucous membrane is dry. No pharyn geal erythema or thrush NECK: Trachea central, no thyromegaly. LUNGS: Unlabored breathing. Clear to auscultation anteriorly. No wheeze or crackle. HEART: S1, S2, regular rate and rhythm. No loud murmur ABDOMEN: Soft, no tenderness , guarding or rigidity, no organomegaly EXTREMITIES: Left knee did have swelling warmth and tenderness SKIN: No rash, no masses palpable. NEUROLOGICAL: The patient is awake, alert, oriented x3, mood and affect normal. Results CBC & Chem 7: 05/05/23 05:27 05/07/23 05:40 Labs: Abnormal Lab Results - Last 24 Hours (Table) 04/22/23 04/23/23 Range/Units 23:00 05:52 POC Glucose (mg/dL) 136 H 138 H (70-110) mg/dL Assessment and Plan (1) Bacteremia due to Streptococcus Status: Acute Code(s): R78.81 - BACTEREMIA; B95.5 - UNSP STREPTOCOCCUS THE CAUSE OF DISEASES [facility] SNOMED Code(s): 377729177206 (2) Sepsis Status: Acute Code(s): A41.9 - SEPSIS, UNSPECIFIED ORGANISM SNOMED Code(s): 95459548 (3) Septic arthritis of knee, left Status: Acute Code(s): M00.9 - PYOGENIC ARTHRITIS, UNSPECIFIED SNOMED Code(s): 135950590 Plan: 1patient presented to hospital with weakness fever did have Streptococcus agalactiae bacteremia in this patient who did have a significant swelling to the left knee along with the stiffness with aspiration of the left knee cell count more than 20,000 white cell high clinical suspicious for septic arthritis likely related to streptococci 2-await orthopedics evaluation and definitive surgical treatment 3-blood cultures will be repeated document clearance of bacteremia check inflammatory markers 4-discontinue Rocephin 5-start the patient cefazolin 2 g every 8 hours We will follow on clinical condition and cultures to further adjust medication if needed Thank you for this consultation we will follow the patient along with you Dictation was produced using Stevie dictation software. please excuse any gramma tical, word or spelling errors. Time with Patient: Greater than 30
[2023-04-24 04:18] LABS: Appearance,BF Hazy (Clear)
[2023-04-24 06:08] LABS: Glucose,Whole Blood 113 mg/dL (70-110)
[2023-04-24] MEDS: INSULIN ASPART (NovoLOG) 100 UNIT/ML VIAL SQ SCH ×4 (06:15→20:33)
[2023-04-24 06:53] LABS: Amylase, Fluid Source Paracentesis Fl; Amylase,Body Fluid 22 U/L; Glucose, BF Source Paracentesis Fl; Glucose, Body Fluid 154 mg/dL; LDH, Body Fluid Source Paracentesis Fl; T. Protein, Body Fluid Source Paracentesis Fl; Total Protein, Body Fluid 1250 mg/dL
[2023-04-24] MEDS: PANTOPRAZOLE 40 MG TABLET PO SCH (06:53)
[2023-04-24 07:41] LABS: Anisocytosis Slight; Basophils # (A) 0.1 k/uL (0-0.2); Basophils % (A) 1 %; Eosinophils # (A) 0.2 k/uL (0-0.7); Eosinophils % (A) 4 %; HCT 27.5 % (39.0-53.0); HGB 8.7 gm/dL (13.0-17.5); Hypochromasia Marked; Lymphocytes # (A) 0.8 k/uL (1.0-4.8); Lymphocytes % (A) 14 %; MCH 27.1 pg (25.0-35.0); MCHC 31.8 g/dL (31.0-37.0); MCV 85.4 fL (80.0-100.0); Mean Platelet Volume 8.9; Monocytes # (A) 0.3 k/uL (0-1.0); Monocytes % (A) 6 %; Neutrophils # (A) 4.4 k/uL (1.3-7.7); Neutrophils % (A) 73 %; Platelet Count 157 k/uL (150-450); Poikilocytosis Slight; RBC 3.22 m/uL (4.30-5.90); RDW 17.4 % (11.5-15.5)
[2023-04-24 07:55] LABS: African American GFR (CKD) >90 (>60 ml/min/1.73 sqM); Anion Gap 8 mmol/L; Blood Urea Nitrogen 8 mg/dL (9-20); C Reactive Protein 6.2 mg/dL (<1.0); Calcium 8.1 mg/dL (8.4-10.2); Carbon Dioxide 17 mmol/L (22-30); Chloride 110 mmol/L (98-107); Magnesium 1.8 mg/dL (1.6-2.3); Non-African American GFR(CKD) >90 (>60 ml/min/1.73 sqM); Sodium 135 mmol/L (137-145)
[2023-04-24 08:23] LABS: Glucose 108 mg/dL (74-99)
[2023-04-24 08:29] LABS: Potassium 3.3 mmol/L (3.5-5.1)
--- NOTE | 2023-04-24 08:46 | P.PN ---
Subjective Progress Note Date: 04/24/23 Principal diagnosis: Left knee effusion; bilateral lower extremity edema Patient was seen at bedside this morning lying semirecumbent position. Scar is present over left knee. Left knee appears to be normal in skin tone/color. Negative for any active drainage. Incision is well-healed. There is a fair amount of swelling in the left knee, however, there is lateral lower extremity edema present diffusely. Patient says he does have improved range of motion in his knee over the past week. Patient is not complaining of any knee pain. Patient denies loss of bowel/bladder control, nausea, vomiting, change in vision, chest pain. Objective - Vital Signs Vital signs: Vital Signs Temp 98.6 F 04/24/23 02:05 Pulse 72 04/24/23 02:05 Resp 18 04/24/23 02:05 BP 148/84 04/24/23 02:05 Pulse Ox 98 04/24/23 02:05 FiO2 Intake & Output 04/23/23 04/24/23 04/24/23 18:59 06:59 18:59 Intake Total 750 Output Total 500 3 Balance 250 -3 Intake: Intake, IV Titration 100 Amount ceFAZolin 2 gm In Sodium 100 Chloride 0.9% 50 ml @ 100 mls/hr IVPB Q8HR [facility] Rx# :[id number] Oral 650 Output: Urine 500 Stool 3 Other: Voiding Method Urinal # Voids 2 - Exam Inspection: Bilateral lower extremity due present with edema especially in the cast and ankles bilaterally. There does appear to be a moderate effusion in the left knee. Left knee appears to present with normal skin tone/color. Negative for any drainage. Incision appears to be well-healed. Sensation: Equal, symmetric, bilaterally intact throughout the lower extremities. Palpation: Nontender to palpation throughout bilateral lower extremities. Nontender to palpation throughout the left knee on palpation. Left knee is lukewarm to the touch. Range of motion: Patient is able to flex left knee to about 110 while lying in bed. Patient does have full extension of left knee on exam. Patient does have good range of motion right knee on flexion extension Motor: 4/5 on resisted bilateral knee flexion/extension. Special tests: Negative Homans bilaterally. Neurovascular status: Radial pulses intact, 2+ bilaterally. Cap refill under 3 seconds in digits of lower extremities. - Labs CBC & Chem 7: 04/24/23 06:47 04/24/23 06:47 Labs: Abnormal Lab Results - Last 24 Hours (Table) 04/23/23 04/23/23 04/23/23 Range/Units 10:36 10:36 10:36 RBC 3.03 L (4.30-5.90) m/uL Hgb 8.1 L (13.0-17.5) gm/dL Hct 25.4 L (39.0-53.0) % RDW 17.5 H (11.5-15.5) % Plt Count 139 L (150-450) k/uL Lymphocytes # 0.8 L (1.0-4.8) k/uL ESR (0-20) mm/Hr Sodium 133 L (137-145) mmol/L Potassium 3.1 L (3.5-5.1) mmol/L Chloride 108 H (98-107) mmol/L Carbon Dioxide 18 L (22-30) mmol/L BUN (9-20) mg/dL Creatinine 0.52 L (0.66-1.25) mg/dL Glucose 122 H (74-99) mg/dL POC Glucose (mg/dL) (70-110) mg/dL Calcium 7.8 L (8.4-10.2) mg/dL C-Reactive Protein 6.7 H (<1.0) mg/dL Fluid Appearance (Clear) 04/23/23 04/23/23 04/23/23 Range/Units 10:36 12:19 16:31 RBC (4.30-5.90) m/uL Hgb (13.0-17.5) gm/dL Hct (39.0-53.0) % RDW (11.5-15.5) % Plt Count (150-450) k/uL Lymphocytes # (1.0-4.8) k/uL ESR 62 H (0-20) mm/Hr Sodium (137-145) mmol/L Potassium (3.5-5.1) mmol/L Chloride (98-107) mmol/L Carbon Dioxide (22-30) mmol/L BUN (9-20) mg/dL Creatinine (0.66-1.25) mg/dL Glucose (74-99) mg/dL POC Glucose (mg/dL) 121 H 134 H (70-110) mg/dL Calcium (8.4-10.2) mg/dL C-Reactive Protein (<1.0) mg/dL Fluid Appearance (Clear) 04/23/23 04/23/23 04/24/23 Range/Units 16:36 21:24 06:07 RBC (4.30-5.90) m/uL Hgb (13.0-17.5) gm/dL Hct (39.0-53.0) % RDW (11.5-15.5) % Plt Count (150-450) k/uL Lymphocytes # (1.0-4.8) k/uL ESR (0-20) mm/Hr Sodium (137-145) mmol/L Potassium (3.5-5.1) mmol/L Chloride (98-107) mmol/L Carbon Dioxide (22-30) mmol/L BUN (9-20) mg/dL Creatinine (0.66-1.25) mg/dL Glucose (74-99) mg/dL POC Glucose (mg/dL) 186 H 113 H (70-110) mg/dL Calcium (8.4-10.2) mg/dL C-Reactive Protein (<1.0) mg/dL Fluid Appearance Hazy A (Clear) 04/24/23 04/24/23 Range/Units 06:47 06:47 RBC 3.22 L (4.30-5.90) m/uL Hgb 8.7 L (13.0-17.5) gm/dL Hct 27.5 L (39.0-53.0) % RDW 17.4 H (11.5-15.5) % Plt Count (150-450) k/uL Lymphocytes # 0.8 L (1.0-4.8) k/uL ESR (0-20) mm/Hr Sodium 135 L (137-145) mmol/L Potassium 3.3 L (3.5-5.1) mmol/L Chloride 110 H (98-107) mmol/L Carbon Dioxide 17 L (22-30) mmol/L BUN 8 L (9-20) mg/dL Creatinine 0.50 L (0.66-1.25) mg/dL Glucose 108 H (74-99) mg/dL POC Glucose (mg/dL) (70-110) mg/dL Calcium 8.1 L (8.4-10.2) mg/dL C-Reactive Protein 6.2 H (<1.0) mg/dL Fluid Appearance (Clear) Assessment and Plan Assessment: 1. Left knee effusion; bilateral lower extremity edema 2. Multiple medical comorbidities Plan: 1. Left knee effusion; bilateral lower extremity edema - patient was examined bedside this morning. Patient does have good flexion/extension without pain during range of motion bilateral knees on exam. Left knee is lukewarm to the touch. normal skin tone/color. Negative for erythema. Incision is well- healed. Negative for any drainage. Arthrocentesis of the left knee performed at [facility] on 04/21/2023 showed white blood count of 20,000. I did talk directly with staff member at [facility] about cultures. Final culture results of left knee were faxed to [facility]. Aerobic and anaerobic cultures results show no growth after 48 hours. I discussed the findings of the exam and labs with my attending, Dr. Bishop. At this time we are not recommending any orthopedic intervention. At this time we are recommending conservative measures with pain medication, ice and elevation as needed as well as physical therapy daily. We do recommend patient to follow-up in the outpatient setting with Dr. Bishop for continued evaluation. Patient is stable for an orthopedic standpoint for discharge. Orthopedics is signing off at this time. Please do not hesitate to contact us for any further questions. 2. Appreciate medical and ID management 3. Pain management - Tylenol 4. DVT prophylaxis - aspirin; heparin 5. GI prophylaxis - Protonix 6. PT/OT - weightbearing as tolerated with walker as needed 7. Encourage incentive spirometer use Time with Patient: Less than 30
[2023-04-24] MEDS: ASPIRIN 81 MG PO SCH (09:54)
[2023-04-24] MEDS: CHOLECALCIFEROL 25 MCG (1000 IU) TABLET PO SCH (09:54)
[2023-04-24] MEDS: LOSARTAN 50 MG TAB PO SCH ×2 (09:57→20:33)
[2023-04-24] MEDS: ASCORBIC ACID 500 MG TAB PO SCH (09:57)
[2023-04-24] MEDS: atenoloL 50 MG TAB PO SCH (09:57)
[2023-04-24] MEDS: MULTIVITAMINS, THERA 1 EACH TAB PO SCH (09:57)
[2023-04-24] MEDS: allopurinoL 300 MG TAB PO SCH (09:58)
[2023-04-24] MEDS: guaiFENesin SYRUP 100MG/5ML 200 MG/10 ML CUP PO PRN ×2 (09:59→20:33)
[2023-04-24] MEDS: ACETAMINOPHEN TAB 325 MG TAB PO PRN ×2 (09:59→20:33)
[2023-04-24] MEDS: HEPARIN SODIUM,PORCINE 5,000 UNIT/ML 1 ML VIAL SQ SCH ×2 (10:00→20:33)
[2023-04-24] MEDS: POTASSIUM CHLORIDE ER 10 MEQ TAB.ER.PRT PO SCH ×2 (10:02→11:58)
[2023-04-24] MEDS: SPIRONOLACTONE 25 MG TAB PO SCH (10:02)
[2023-04-24] MEDS ORDERED: POTASSIUM CHLORIDE ER 20 MEQ TAB.ER PO STA (11:26)
[2023-04-24 12:28] LABS: Glucose,Whole Blood 116 mg/dL (70-110)
[2023-04-24] MEDS: FUROSEMIDE 20 MG TAB PO SCH (15:38)
[2023-04-24 16:26] LABS: Glucose,Whole Blood 119 mg/dL (70-110)
--- NOTE | 2023-04-24 16:27 | P.PN ---
Subjective Progress Note Date: 04/24/23 This is a 67-year-old male patient of Dr. Loli Campbell, patient has medical history of abdominal ascites and liver cirrhosis, chronic alcoholism, diabetes mellitus, hemorrhoids, gastroesophageal reflux disease. Patient follows with dr rocco turcios underwent upper and lower endoscopy in January of 2023 has history of esophageal varices which underwent banding in Jan as well. Has a history of left lower extremity total knee arthroplasty done a year ago, initially presented to [facility] with left lower extremity edema with concern for infected prosthetic of the left knee. He presented to [facility] with fevers progressive weakness and back pain. States fever was as high as 104. He was also anemic hemoglobin 6.5 requiring 2 unit of PRBC. Patient was found to have strep agalactaie bacteremia with features of sepsis over at [facility]. He was treated with IV ceftriaxone 2 grams. Patient also with recent influenza infection and hypoxia at [facility]. He had a venous doppler of the left leg at [facility] negative for acute DVT. He underwent arthrocentesis of the left knee joint effusion showing 20,000 WBCs and suspicious for infected prosthesis was recommended to transfer to [facility] for further evaluation by Dr iBshop. Yesterday before transfer he underwent work up for abdominal ascites which he has undergo paracentesis in the past, he had an abdominal ultrasound showing significant amount of intraabdominal ascites. IR consulted. He is admitted to this hospital with consults placed to [place] and infectious disease. 04/24/2023 Patient evaluated today sitting up in bed. He was seen in consultation by ID who has changed antibiotics to IV cefazolin from ceftriaxone with plans to repeat blood culture. Underwent paracentesis 1.5 L off. Sodium 135, potassium 3.3, BUN 8, creatinine 0.50, magnesium 1.8, CRP 6.2. Orthopedics not recommending any surgical intervention at this time. PHYSICAL EXAMINATION: GENERAL: The patient is alert and oriented x3, not in any acute distress. Well developed, well nourished. HEENT: Pupils are round and equally reacting to light. EOMI. No scleral icterus. No conjunctival pallor. Normocephalic, atraumatic. No pharyngeal erythema. No thyromegaly. CARDIOVASCULAR: S1 and S2 present. No murmurs, rubs, or gallops. PULMONARY: Chest is clear to auscultation, no wheezing or crackles. ABDOMEN: Soft, nontender, distended and soft, normoactive bowel sounds. No palpable organomegaly. MUSCULOSKELETAL: No joint swelling or deformity. EXTREMITIES: No cyanosis, clubbing, or pedal edema. NEUROLOGICAL: Gross neurological examination did not reveal any focal deficits. SKIN: No rashes. Assessment and Plan -Strep Algalactaie bacteremia possible source of infection the left knee continue on the IV rocephin 2g was started on at [facility], ID consultation in place for further recommendations most recent blood culture showing clearing of the bacteremia. Repeat cultures have been taken here and pending. Antibiotics have been changed to IV cefazolin. No plans for surgical intervention at this time. -Sepsis source of infection possibly an infected left knee prosthesis s/p arthrocentesis of the left knee at [facility] following -History of esophageal varices with banding in january -Hypokalemia patient will receive oral supplementation and repeat labs in the AM -Hx of cirrhosis, abdominal ascites ultrasound showing significant ascites and IR consulted for possible paracentesis -Hx of GERD -Diabetes Mellitus type 2 hgb A1C 6.9 continue on accuchecks achs and sliding scale insulin. -History of left TKA -Hypertension continues on losartan BID and atenolol. -Hemorrhoids -Chronic alcohol use monitor for alcohol withdrawal Hx of gout continue on allopurinol, GI prophylaxis DVT prophylaxis Full Code The impression and plan of care has been dictated by Kylah Adrian, Nurse Practitioner as directed. Dr. Danuta MD I have performed a history and physical examination and medical decision making of this patient, discussed the same with the dictator, and agree with the dictators assessment and plan as written, documented as a scribe. Based on total visit time, I have performed more than 50% of this visit. Objective - Vital Signs Vital signs: Vital Signs Temp 99.2 F 04/24/23 07:33 Pulse 84 04/24/23 07:33 Resp 17 04/24/23 07:33 BP 168/74 04/24/23 07:33 Pulse Ox 98 04/24/23 07:33 FiO2 Intake & Output 04/23/23 04/24/23 04/24/23 18:59 06:59 18:59 Intake Total 750 Output Total 500 3 Balance 250 -3 Intake: Intake, IV Titration 100 Amount ceFAZolin 2 gm In Sodium 100 Chloride 0.9% 50 ml @ 100 mls/hr IVPB Q8HR [facility] Rx# :[id number] Oral 650 Output: Urine 500 Stool 3 Other: Voiding Method Urinal # Voids 2 - Labs CBC & Chem 7: 04/24/23 06:47 04/24/23 06:47 Labs: Abnormal Lab Results - Last 24 Hours (Table) 04/23/23 04/23/23 04/23/23 Range/Units 10:36 10:36 10:36 RBC 3.03 L (4.30-5.90) m/uL Hgb 8.1 L (13.0-17.5) gm/dL Hct 25.4 L (39.0-53.0) % RDW 17.5 H (11.5-15.5) % Plt Count 139 L (150-450) k/uL Lymphocytes # 0.8 L (1.0-4.8) k/uL ESR (0-20) mm/Hr Sodium 133 L (137-145) mmol/L Potassium 3.1 L (3.5-5.1) mmol/L Chloride 108 H (98-107) mmol/L Carbon Dioxide 18 L (22-30) mmol/L BUN (9-20) mg/dL Creatinine 0.52 L (0.66-1.25) mg/dL Glucose 122 H (74-99) mg/dL POC Glucose (mg/dL) (70-110) mg/dL Calcium 7.8 L (8.4-10.2) mg/dL C-Reactive Protein 6.7 H (<1.0) mg/dL Fluid Appearance (Clear) 04/23/23 04/23/23 04/23/23 Range/Units 10:36 12:19 16:31 RBC (4.30-5.90) m/uL Hgb (13.0-17.5) gm/dL Hct (39.0-53.0) % RDW (11.5-15.5) % Plt Count (150-450) k/uL Lymphocytes # (1.0-4.8) k/uL ESR 62 H (0-20) mm/Hr Sodium (137-145) mmol/L Potassium (3.5-5.1) mmol/L Chloride (98-107) mmol/L Carbon Dioxide (22-30) mmol/L BUN (9-20) mg/dL Creatinine (0.66-1.25) mg/dL Glucose (74-99) mg/dL POC Glucose (mg/dL) 121 H 134 H (70-110) mg/dL Calcium (8.4-10.2) mg/dL C-Reactive Protein (<1.0) mg/dL Fluid Appearance (Clear) 04/23/23 04/23/23 04/24/23 Range/Units 16:36 21:24 06:07 RBC (4.30-5.90) m/uL Hgb (13.0-17.5) gm/dL Hct (39.0-53.0) % RDW (11.5-15.5) % Plt Count (150-450) k/uL Lymphocytes # (1.0-4.8) k/uL ESR (0-20) mm/Hr Sodium (137-145) mmol/L Potassium (3.5-5.1) mmol/L Chloride (98-107) mmol/L Carbon Dioxide (22-30) mmol/L BUN (9-20) mg/dL Creatinine (0.66-1.25) mg/dL Glucose (74-99) mg/dL POC Glucose (mg/dL) 186 H 113 H (70-110) mg/dL Calcium (8.4-10.2) mg/dL C-Reactive Protein (<1.0) mg/dL Fluid Appearance Hazy A (Clear) 04/24/23 04/24/23 Range/Units 06:47 06:47 RBC 3.22 L (4.30-5.90) m/uL Hgb 8.7 L (13.0-17.5) gm/dL Hct 27.5 L (39.0-53.0) % RDW 17.4 H (11.5-15.5) % Plt Count (150-450) k/uL Lymphocytes # 0.8 L (1.0-4.8) k/uL ESR (0-20) mm/Hr Sodium 135 L (137-145) mmol/L Potassium 3.3 L (3.5-5.1) mmol/L Chloride 110 H (98-107) mmol/L Carbon Dioxide 17 L (22-30) mmol/L BUN 8 L (9-20) mg/dL Creatinine 0.50 L (0.66-1.25) mg/dL Glucose 108 H (74-99) mg/dL POC Glucose (mg/dL) (70-110) mg/dL Calcium 8.1 L (8.4-10.2) mg/dL C-Reactive Protein 6.2 H (<1.0) mg/dL Fluid Appearance (Clear) Assessment and Plan Time with Patient: Less than 30
[2023-04-24] MEDS: COLESEVELAM 625 MG TAB PO SCH (18:42)
[2023-04-24 20:12] LABS: Glucose,Whole Blood 168 mg/dL (70-110)
[2023-04-25] MEDS: PANTOPRAZOLE 40 MG TABLET PO SCH (05:37)
[2023-04-25] MEDS: ACETAMINOPHEN TAB 325 MG TAB PO PRN ×3 (05:37→21:38)
[2023-04-25 05:42] LABS: Glucose,Whole Blood 118 mg/dL (70-110)
[2023-04-25] MEDS: INSULIN ASPART (NovoLOG) 100 UNIT/ML VIAL SQ SCH ×4 (05:52→21:38)
[2023-04-25] MEDS: SPIRONOLACTONE 25 MG TAB PO SCH (08:15)
[2023-04-25] MEDS: ASCORBIC ACID 500 MG TAB PO SCH (08:15)
[2023-04-25] MEDS: allopurinoL 300 MG TAB PO SCH (08:15)
[2023-04-25] MEDS: CHOLECALCIFEROL 25 MCG (1000 IU) TABLET PO SCH (08:15)
[2023-04-25] MEDS: FUROSEMIDE 20 MG TAB PO SCH ×2 (08:15→15:38)
[2023-04-25] MEDS: LOSARTAN 50 MG TAB PO SCH ×2 (08:15→22:26)
[2023-04-25] MEDS: ASPIRIN 81 MG PO SCH (08:15)
[2023-04-25] MEDS: MULTIVITAMINS, THERA 1 EACH TAB PO SCH (08:15)
[2023-04-25] MEDS: HEPARIN SODIUM,PORCINE 5,000 UNIT/ML 1 ML VIAL SQ SCH ×2 (08:16→21:38)
[2023-04-25] MEDS: atenoloL 50 MG TAB PO SCH (08:16)
[2023-04-25 11:25] LABS: Glucose,Whole Blood 154 mg/dL (70-110)
[2023-04-25 12:10] LABS: BUN/Creat Ratio 8.83 Ratio (12.00-20.00); Blood Urea Nitrogen 5.3 mg/dL (9.0-27.0); Calcium 8.4 mg/dL (8.7-10.3); Carbon Dioxide 14.9 mmol/L (21.6-31.8); Chloride 109 mmol/L (96-109); Glucose 114 mg/dL (70-110); Potassium 3.6 mmol/L (3.5-5.5); Sodium 136 mmol/L (135-145)
[2023-04-25] MEDS ORDERED: POTASSIUM CHLORIDE ER 20 MEQ TAB.ER PO STA (14:45)
--- NOTE | 2023-04-25 14:45 | P.PN ---
Subjective Progress Note Date: 04/25/23 This is a 67-year-old male patient of Dr. Loli Campbell, patient has medical history of abdominal ascites and liver cirrhosis, chronic alcoholism, diabetes mellitus, hemorrhoids, gastroesophageal reflux disease. Patient follows with dr rocco turcios underwent upper and lower endoscopy in January of 2023 has history of esophageal varices which underwent banding in Jan as well. Has a history of left lower extremity total knee arthroplasty done a year ago, initially presented to [facility] with left lower extremity edema with concern for infected prosthetic of the left knee. He presented to [place] with fevers progressive weakness and back pain. States fever was as high as 104. He was also anemic hemoglobin 6.5 requiring 2 unit of PRBC. Patient was found to have strep agalactaie bacteremia with features of sepsis over at [facility]. He was treated with IV ceftriaxone 2 grams. Patient also with recent influenza infection and hypoxia at [facility]. He had a venous doppler of the left leg at [place] negative for acute DVT. He underwent arthrocentesis of the left knee joint effusion showing 20,000 WBCs and suspicious for infected prosthesis was recommended to transfer to [facility] for further evaluation by Dr Bishop. Yesterday before transfer he underwent work up for abdominal ascites which he has undergo paracentesis in the past, he had an abdominal ultrasound showing significant amount of intraabdominal ascites. IR consulted. He is admitted to this hospital with consults placed to [place] and infectious disease. 04/24/2023 Patient evaluated today sitting up in bed. He was seen in consultation by ID who has changed antibiotics to IV cefazolin from ceftriaxone with plans to repeat blood culture. Underwent paracentesis 1.5 L off. Sodium 135, potassium 3.3, BUN 8, creatinine 0.50, magnesium 1.8, CRP 6.2. Orthopedics not recommending any surgical intervention at this time. 04/25/2023 Patient is evaluated today resting in bed. pts is at the bedside and plan of care was discussed thoroughly. Patient remains on IV Cefazolin with repeat blood cultures pending and negative so far. Infectious disease is following this case. He is status post paracentesis. Again orthopedics not recommending any surgical intervention for the right knee septic arthritis. Review of Systems Constitutional: Denied any fatigue denied any fever. Cardio vascular: denied any chest pain, palpitations Gastrointestinal: denied any nausea, vomiting, diarrhea Pulmonary: Denied any shortness of breath cough Neurologic denied any new focal deficits All inpatient medications were reviewed and appropriate changes in these medications as dictated in the interval history and assessment and plan. PHYSICAL EXAMINATION: GENERAL: The patient is alert and oriented x3, not in any acute distress. Well developed, well nourished. HEENT: Pupils are round and equally reacting to light. EOMI. No scleral icterus. No conjunctival pallor. Normocephalic, atraumatic. No pharyngeal erythema. No thyromegaly. CARDIOVASCULAR: S1 and S2 present. No murmurs, rubs, or gallops. PULMONARY: Chest is clear to auscultation, no wheezing or crackles. ABDOMEN: Soft, nontender, distended and soft, normoactive bowel sounds. No palpable organomegaly. MUSCULOSKELETAL: No joint swelling or deformity. EXTREMITIES: No cyanosis, clubbing, or pedal edema. NEUROLOGICAL: Gross neurological examination did not reveal any focal deficits. SKIN: No rashes. Assessment and Plan -Strep Algalactaie bacteremia possible source of infection the left knee continue on the IV rocephin 2g was started on at [place], ID consultation in place for further recommendations most recent blood culture showing clearing of the bacteremia. Repeat cultures have been taken here and pending. Antibiotics have been changed to IV cefazolin. No plans for surgical intervention at this time. -Sepsis source of infection possibly an infected left knee prosthesis s/p arthrocentesis of the left knee at [facility] following -History of esophageal varices with banding in january -Hypokalemia patient will receive oral supplementation and repeat labs in the AM -Hx of cirrhosis, abdominal ascites ultrasound showing significant ascites s/p paracentesis with 1.5 L off and patient has been started on aldactone and lasix BID. -Hx of GERD -Diabetes Mellitus type 2 hgb A1C 6.9 continue on accuchecks achs and sliding scale insulin. -History of left TKA -Hypertension continues on losartan BID and atenolol. -Hemorrhoids -Chronic alcohol use monitor for alcohol withdrawal Hx of gout continue on allopurinol, GI prophylaxis DVT prophylaxis Full Code The impression and plan of care has been dictated by Kylah Adrian, Nurse Practitioner as directed. Dr. Danuta MD I have performed a history and physical examination and medical decision making of this patient, discussed the same with the dictator, and agree with the dictators assessment and plan as written, documented as a scribe. Based on total visit time, I have performed more than 50% of this visit. Objective - Vital Signs Vital signs: Vital Signs Temp 98.5 F 04/25/23 07:11 Pulse 97 04/25/23 07:11 Resp 17 04/25/23 07:11 BP 164/81 04/25/23 07:11 Pulse Ox 95 04/25/23 07:11 FiO2 Intake & Output 04/24/23 04/25/23 04/25/23 18:59 06:59 18:59 Output Total 3 450 Balance -3 -450 Output: Urine 450 Stool 3 Other: Voiding Method Urinal # Voids 2 # Bowel Movements 2 - Labs CBC & Chem 7: 04/24/23 06:47 04/25/23 06:03 Labs: Abnormal Lab Results - Last 24 Hours (Table) 04/24/23 04/24/23 04/24/23 Range/Units 12:26 16:25 20:11 POC Glucose (mg/dL) 116 H 119 H 168 H (70-110) mg/dL 04/25/23 Range/Units 05:41 POC Glucose (mg/dL) 118 H (70-110) mg/dL Microbiology - Last 24 Hours (Table) 04/23/23 16:36 Acid Fast Bacilli Smear - Preliminary Ascites Fluid 04/23/23 16:36 Gram Stain - Preliminary Ascites Fluid Body Fluid Culture - Preliminary Assessment and Plan Time with Patient: Less than 30
[2023-04-25] MEDS: COLESEVELAM 625 MG TAB PO SCH (15:39)
[2023-04-25 17:06] LABS: Glucose,Whole Blood 146 mg/dL (70-110)
[2023-04-25 20:55] LABS: Glucose,Whole Blood 191 mg/dL (70-110)
[2023-04-25] MEDS: guaiFENesin SYRUP 100MG/5ML 200 MG/10 ML CUP PO PRN (21:38)
[2023-04-26 05:20] LABS: Glucose,Whole Blood 124 mg/dL (70-110)
[2023-04-26] MEDS: INSULIN ASPART (NovoLOG) 100 UNIT/ML VIAL SQ SCH ×4 (05:22→22:55)
[2023-04-26] MEDS: PANTOPRAZOLE 40 MG TABLET PO SCH (06:19)
[2023-04-26] MEDS: ACETAMINOPHEN TAB 325 MG TAB PO PRN ×3 (06:19→22:24)
[2023-04-26 06:25] LABS: Anisocytosis Slight; HCT 29.5 % (39.0-53.0); HGB 9.5 gm/dL (13.0-17.5); Hypochromasia Marked; MCH 27.1 pg (25.0-35.0); MCHC 32.1 g/dL (31.0-37.0); MCV 84.4 fL (80.0-100.0); Platelet Count 223 k/uL (150-450); Poikilocytosis Slight; RBC 3.49 m/uL (4.30-5.90); RDW 18.2 % (11.5-15.5); WBC 6.3 k/uL (3.8-10.6)
[2023-04-26 06:40] LABS: Band Neutrophils % 3 %; Eosinophils # (M) 0.13 k/uL (0-0.7); Lymphocytes # (M) 1.39 k/uL (1.0-4.8); Monocytes # (M) 0.44 k/uL (0-1.0); Neutrophils % (M) 66 %; Nucleated Red Blood Cells 0 /100 WBC (0-0); Total Cells Counted 100
[2023-04-26 06:58] LABS: African American GFR (CKD) >90 (>60 ml/min/1.73 sqM); Anion Gap 9 mmol/L; Blood Urea Nitrogen 5 mg/dL (9-20); Calcium 8.3 mg/dL (8.4-10.2); Carbon Dioxide 14 mmol/L (22-30); Chloride 114 mmol/L (98-107); Glucose 110 mg/dL (74-99); Non-African American GFR(CKD) >90 (>60 ml/min/1.73 sqM); Potassium 3.6 mmol/L (3.5-5.1); Sodium 137 mmol/L (137-145)
[2023-04-26] MEDS: atenoloL 50 MG TAB PO SCH (08:06)
[2023-04-26] MEDS: FUROSEMIDE 20 MG TAB PO SCH ×2 (08:06→15:25)
[2023-04-26] MEDS: ASPIRIN 81 MG PO SCH (08:06)
[2023-04-26] MEDS: SPIRONOLACTONE 25 MG TAB PO SCH (08:06)
[2023-04-26] MEDS: ASCORBIC ACID 500 MG TAB PO SCH (08:06)
[2023-04-26] MEDS: allopurinoL 300 MG TAB PO SCH (08:06)
[2023-04-26] MEDS: MULTIVITAMINS, THERA 1 EACH TAB PO SCH (08:06)
[2023-04-26] MEDS: CHOLECALCIFEROL 25 MCG (1000 IU) TABLET PO SCH (08:06)
[2023-04-26] MEDS: HEPARIN SODIUM,PORCINE 5,000 UNIT/ML 1 ML VIAL SQ SCH ×2 (08:07→22:24)
[2023-04-26] MEDS: LOSARTAN 50 MG TAB PO SCH ×2 (08:07→22:24)
--- NOTE | 2023-04-26 10:35 | US ---
EXAMINATION TYPE: US paracentesis abd w/image DATE OF EXAM: 04/23/2023 2:16 PM CLINICAL INDICATION:Male, 67 years old with history of ascites. COMPARISON: 07/13/2017 ATTENDING: Dr. Connor Martins PROCEDURE: Informed consent was obtained. The risks of the procedure were extensively explained incl uding risk of damage to surrounding bowel with perforation and need for additional procedures. Proced ure was performed in the ultrasound procedure suite. Ultrasound imaging of the abdomen demonstrate as citic fluid. An appropriate access site was localized to the right lower abdomen. Timeout was taken p er protocol. The skin was prepped and draped in the usual sterile fashion and then locally anesthetiz ed with 1% lidocaine. The peritoneal cavity was then accessed via a 5-Tongan one-step needle/cathete r. Approximately 1360 cc of clear straw-colored fluid was obtained. Samples were sent to the lab for analysis. Postprocedural imaging of the abdomen demonstrate a minimal amount of abdominal fluid. Patient tolerated procedure well without immediate complication. Hemostasis at the procedural site w as obtained with a sterile bandage placed. The patient was monitored in the holding area following th e procedure and was subsequently discharged in stable condition. IMPRESSION: Ultrasound guided paracentesis, with approximately 1360 cc of clear straw-colored fluid drained. Path ology results pending. No immediate complications were evident.
[2023-04-26 11:17] LABS: Glucose,Whole Blood 127 mg/dL (70-110)
--- NOTE | 2023-04-26 15:54 | P.PN ---
Subjective Progress Note Date: 04/26/23 Principal diagnosis: Bacteremia, possible left periprosthetic knee infection, back pain Patient was reevaluated today at bedside by both myself and Dr. Bishop, patient's is present. Patient seems to be stable at this time, he's been followed by other medical specialists including infectious disease and internal medicine. Patient has remained on IV cefazolin. Initial blood cultures did reveal strep strain, IV antibiotics have been adjusted. Concern for septic arthropathy of the left knee was discussed. Patient's initial clinical symptoms were not obvious for infection. Patient spent a great deal time at [facility]. During that hospital stay, patient was noted to be severely anemic, he received 2 units of packed RBCs. There was no clear etiology determined of the anemia. After being evaluated by orthopedics at that hospital, an aspiration was done. 20,000 white blood cell count was noted, no crystals were noted. Documentation at that time noted likely source of infection being the knee, culture and sensitivity was finalized in no acute growth was noted. After being transferred to [facility] in hospital and initial evaluation determined a very low concern for an infective process involving the left knee. Patient had swelling but no significant erythema or skin changes. Patient's pain level with both active and passive range of motion with very minimal. It was also noted at the patient's initial visit to [facility] he was having severe back pain, a computed tomography scan was done at the time. Reports did mention endplate changes concerning for possible osteal discitis cannot be ruled out. No further imaging test were done at that time. Since being [facility] on hospital, patient has remained on IV antibiotics and seems stable. We discussed with both the patient and the the possibility of infection involving the left total knee arthroplasty and what that will entail. We discussed the surgery in detail, this including a two- stage procedure involving removing the implants and placing antibiotic spacer followed by an additional revision surgery to place new parts once infection was cleared. Risks and benefits of the procedure were discussed with both the patient and today at bedside, they are in good understanding. Patient is scheduled for 04/29/2023 for stage I of this procedure. Objective - Vital Signs Vital signs: Vital Signs Temp 99.2 F 04/26/23 15:31 Pulse 92 04/26/23 07:38 Resp 19 04/26/23 07:38 BP 171/74 04/26/23 07:38 Pulse Ox 97 04/26/23 07:38 FiO2 Intake & Output 04/25/23 04/26/23 04/26/23 18:59 06:59 18:59 Intake Total 50 900 Output Total 425 Balance 50 475 Intake: Intake, IV Titration 50 Amount ceFAZolin 2 gm In Sodium 50 Chloride 0.9% 50 ml @ 100 mls/hr IVPB Q8HR [facility] Rx# :[id number] Oral 900 Output: Urine 425 Other: # Voids 3 - Exam Left lower extremity: There is no obvious erythema or skin changes noted. There is a well-healed incision over the anterior aspect of the knee. There is a notable effusion present on the knee. Passive and active range of motion of the knee reproduces no pain. Patient has been up and ambulating in the halls over the last 48 hours with the assistance of a walker and physical therapy. Calf is soft, no tenderness with palpation Logroll maneuver reproduces no pain Plantar flexion, dorsiflexion, EHL, FHL are intact Sensory exam to light touch is intact throughout the extremity, dorsalis pedis pulses 2+ - Labs CBC & Chem 7: 04/26/23 05:20 04/26/23 05:20 Labs: Abnormal Lab Results - Last 24 Hours (Table) 04/25/23 04/25/23 04/26/23 Range/Units 17:02 20:54 05:19 RBC (4.30-5.90) m/uL Hgb (13.0-17.5) gm/dL Hct (39.0-53.0) % RDW (11.5-15.5) % Chloride (98-107) mmol/L Carbon Dioxide (22-30) mmol/L BUN (9-20) mg/dL Creatinine (0.66-1.25) mg/dL Glucose (74-99) mg/dL POC Glucose (mg/dL) 146 H 191 H 124 H (70-110) mg/dL Calcium (8.4-10.2) mg/dL 04/26/23 04/26/23 04/26/23 Range/Units 05:20 05:20 11:16 RBC 3.49 L (4.30-5.90) m/uL Hgb 9.5 L (13.0-17.5) gm/dL Hct 29.5 L (39.0-53.0) % RDW 18.2 H (11.5-15.5) % Chloride 114 H (98-107) mmol/L Carbon Dioxide 14 L (22-30) mmol/L BUN 5 L (9-20) mg/dL Creatinine 0.47 L (0.66-1.25) mg/dL Glucose 110 H (74-99) mg/dL POC Glucose (mg/dL) 127 H (70-110) mg/dL Calcium 8.3 L (8.4-10.2) mg/dL Microbiology - Last 24 Hours (Table) 04/23/23 16:36 Gram Stain - Preliminary Ascites Fluid Body Fluid Culture - Preliminary 04/24/23 06:47 Blood Culture - Preliminary Blood Assessment and Plan Assessment: Left knee effusion Likely left knee periprosthetic infection Bacteremia Low back pain Cirrhosis Multiple medical comorbidities Plan: Patient is scheduled for surgery for 04/29/2023, more specifically stage I revision of the left knee Consults have been placed for cardiology clearance. Also appreciate internal medicine and infectious disease recommendations. Patient needs to be medically optimized prior to surgery Stat MRI of the lumbar spine with and without contrast has been ordered to evaluate for osteo discitis, we'll discuss further imaging studies and findings on physical exam with our orthopedic spine surgeon Dr. Narayanan Continue IV antibiotics at this time Weight-bear as tolerated, recommend walker Pain control, utilize Tylenol on low-dose narcotics if needed Further recommendations to follow
[2023-04-26 17:52] LABS: Glucose,Whole Blood 127 mg/dL (70-110)
[2023-04-26] MEDS: COLESEVELAM 625 MG TAB PO SCH (18:04)
--- NOTE | 2023-04-26 20:21 | P.PN ---
Subjective This is a 67-year-old male patient of Dr. Loli Campbell, patient has medical history of abdominal ascites and liver cirrhosis, chronic alcoholism, diabetes mellitus, hemorrhoids, gastroesophageal reflux disease. Patient follows with dr rocco turcios underwent upper and lower endoscopy in January of 2023 has history of esophageal varices which underwent banding in Jan as well. Has a history of left lower extremity total knee arthroplasty done a year ago, initially presented to [facility] with left lower extremity edema with concern for infected prosthetic of the left knee. He presented to [facility] with fevers progressive weakness and back pain. States fever was as high as 104. He was also anemic hemoglobin 6.5 requiring 2 unit of PRBC. Patient was found to have strep agalactaie bacteremia with features of sepsis over at [facility]. He was treated with IV ceftriaxone 2 grams. Patient also with recent influenza infection and hypoxia at [facility]. He had a venous doppler of the left leg at [facility] negative for acute DVT. He underwent arthrocentesis of the left knee joint effusion showing 20,000 WBCs and suspicious for infected prosthesis was recommended to transfer to [facility] for further evaluation by Dr Bishop. Yesterday before transfer he underwent work up for abdominal ascites which he has undergo paracentesis in the past, he had an abdominal ultrasound showing significant amount of intraabdominal ascites. IR consulted. He is admitted to this hospital with consults placed to [place] and infectious disease. 04/24/2023 Patient evaluated today sitting up in bed. He was seen in consultation by ID who has changed antibiotics to IV cefazolin from ceftriaxone with plans to repeat blood culture. Underwent paracentesis 1.5 L off. Sodium 135, potassium 3.3, BUN 8, creatinine 0.50, magnesium 1.8, CRP 6.2. Orthopedics not recommending any surgical intervention at this time. 04/25/2023 Patient is evaluated today resting in bed. pts is at the bedside and plan of care was discussed thoroughly. Patient remains on IV Cefazolin with repeat blood cultures pending and negative so far. Infectious disease is following this case. He is status post paracentesis. Again orthopedics not recommending any surgical intervention for the right knee septic arthritis. 04/26/2023 Patient is still complaining from left knee swelling, patient states is better, pain controlled no erythema. Orthopedic surgery planning for surgery for infected prosthesis onto stages first one on 04/29 MRI of the lumbar spine is ordered to rule out infection Cardiology team preoperative evaluation is ordered Patient remains on IV cefazolin Repeat blood culture/6 still show no growth ID team on the case Review of systems CONSTITUTIONAL: No fever, no malaise, no fatigue. HEENT: No recent visual problems or hearing problems. Denied any sore throat. CARDIOVASCULAR: No orthopnea, PND, no palpitations, no syncope. PULMONARY: No shortness of breath, no cough, no hemoptysis. GASTROINTESTINAL: No diarrhea, no nausea, no vomiting, no abdominal pain. Normoactive bowel sounds. NEUROLOGICAL: No headaches, no weakness, no numbness. Active Medications Generic Name Dose Route Start Last Admin Trade Name Freq PRN Reason Stop Dose Admin Acetaminophen 650 mg 04/23/23 00:18 04/26/23 14:04 Acetaminophen Tab 325 Mg Tab PO 650 mg Q6HR PRN Administration Fever and/ or Pain Albuterol/Ipratropium 3 ml 04/23/23 00:16 Ipratropium-Albuterol 3 Ml Neb INHALATION RT-QID PRN Shortness Of Breath Or Wheezing Allopurinol 300 mg 04/24/23 09:00 04/26/23 08:06 Allopurinol 300 Mg Tab PO 300 mg DAILY MARIO Administration Ascorbic Acid 1,000 mg 04/23/23 10:00 04/26/23 08:06 Ascorbic Acid 500 Mg Tab PO 1,000 mg DAILY MARIO Administration Aspirin 81 mg 04/23/23 10:00 04/26/23 08:06 Aspirin 81 Mg PO 81 mg DAILY MARIO Administration Atenolol 50 mg 04/23/23 10:00 04/26/23 08:06 Atenolol 50 Mg Tab PO 50 mg DAILY MARIO Administration Cholecalciferol 50 mcg 04/23/23 10:00 04/26/23 08:06 Cholecalciferol 25 Mcg (1000 Iu) Tablet PO 50 mcg DAILY MARIO Administration Colesevelam HCl 625 mg 04/23/23 17:30 04/26/23 18:04 Colesevelam 625 Mg Tab PO 625 mg AC-SUPPER MARIO Administration Furosemide 20 mg 04/24/23 16:00 04/26/23 15:25 Furosemide 20 Mg Tab PO 20 mg BID@0900,1600 MARIO Administration Guaifenesin 200 mg 04/23/23 22:07 04/25/23 21:38 Guaifenesin Syrup 100mg/5ml 200 Mg/10 Ml Cup PO 200 mg Q6HR PRN Administration Cough Heparin Sodium (Porcine) 5,000 unit 04/23/23 21:00 04/26/23 08:07 Heparin Sodium,Porcine 5,000 Unit/Ml 1 Ml Vial SQ 5,000 unit Q12HR MARIO Administration Hydralazine HCl 10 mg 04/25/23 14:42 Hydralazine Hcl 20 Mg/Ml 1 Ml Vial IVP Q6HR PRN Blood Pressure - High Cefazolin Sodium 2 gm/ Sodium 50 mls @ 100 mls/hr 04/23/23 16:00 04/26/23 15:25 Chloride IVPB 100 mls/hr Q8HR MARIO Administration Protocol Insulin Aspart 0 unit 04/23/23 07:30 04/26/23 18:02 Insulin Aspart (Novolog) 100 Unit/Ml Vial SQ Not Given ACHS MARIO Protocol Losartan Potassium 50 mg 04/23/23 10:00 04/26/23 08:07 Losartan 50 Mg Tab PO 50 mg BID MARIO Administration Multivitamins 1 each 04/23/23 10:00 04/26/23 08:06 Multivitamins, Thera 1 Each Tab PO 1 each DAILY MARIO Administration Pantoprazole Sodium 40 mg 04/23/23 10:00 04/26/23 06:19 Pantoprazole 40 Mg Tablet PO 40 mg 0730 MARIO Administration Spironolactone 50 mg 04/24/23 10:00 04/26/23 08:06 Spironolactone 25 Mg Tab PO 50 mg DAILY MARIO Administration Objective - Vital Signs Vital signs: Vital Signs Temp 98.6 F 04/26/23 07:38 Pulse 92 04/26/23 07:38 Resp 19 04/26/23 07:38 BP 171/74 04/26/23 07:38 Pulse Ox 97 04/26/23 07:38 FiO2 Intake & Output 04/25/23 04/26/23 04/26/23 18:59 06:59 18:59 Intake Total 50 900 Output Total 425 Balance 50 475 Intake: Intake, IV Titration 50 Amount ceFAZolin 2 gm In Sodium 50 Chloride 0.9% 50 ml @ 100 mls/hr IVPB Q8HR [facility] Rx# :[id number] Oral 900 Output: Urine 425 Other: # Voids 3 - Exam GENERAL: The patient is alert and oriented x3, not in any acute distress. Well developed, well nourished. HEENT: Pupils are round and equally reacting to light. EOMI. No scleral icterus. No conjunctival pallor. Normocephalic, atraumatic. No pharyngeal erythema. No thyromegaly. CARDIOVASCULAR: S1 and S2 present. No murmurs, rubs, or gallops. PULMONARY: Chest is clear to auscultation, no wheezing , no crackles. ABDOMEN: Soft, nontender, nondistended, normoactive bowel sounds. No palpable organomegaly. MUSCULOSKELETAL: No joint swelling or deformity. -EXTREMITIES: No cyanosis, clubbing, or pedal edema. Left knee is swollen NEUROLOGICAL: Gross neurological examination did not reveal any focal deficits. SKIN: No rashes. no petechiae. - Labs CBC & Chem 7: 04/26/23 05:20 04/26/23 05:20 Labs: Abnormal Lab Results - Last 24 Hours (Table) 04/25/23 04/25/23 04/26/23 Range/Units 17:02 20:54 05:19 RBC (4.30-5.90) m/uL Hgb (13.0-17.5) gm/dL Hct (39.0-53.0) % RDW (11.5-15.5) % Chloride (98-107) mmol/L Carbon Dioxide (22-30) mmol/L BUN (9-20) mg/dL Creatinine (0.66-1.25) mg/dL Glucose (74-99) mg/dL POC Glucose (mg/dL) 146 H 191 H 124 H (70-110) mg/dL Calcium (8.4-10.2) mg/dL 04/26/23 04/26/23 04/26/23 Range/Units 05:20 05:20 11:16 RBC 3.49 L (4.30-5.90) m/uL Hgb 9.5 L (13.0-17.5) gm/dL Hct 29.5 L (39.0-53.0) % RDW 18.2 H (11.5-15.5) % Chloride 114 H (98-107) mmol/L Carbon Dioxide 14 L (22-30) mmol/L BUN 5 L (9-20) mg/dL Creatinine 0.47 L (0.66-1.25) mg/dL Glucose 110 H (74-99) mg/dL POC Glucose (mg/dL) 127 H (70-110) mg/dL Calcium 8.3 L (8.4-10.2) mg/dL Microbiology - Last 24 Hours (Table) 04/23/23 16:36 Gram Stain - Preliminary Ascites Fluid Body Fluid Culture - Preliminary 04/24/23 06:47 Blood Culture - Preliminary Blood Assessment and Plan Assessment: -Strep Algalactaie bacteremia possible source of infection the left knee continue on the IV rocephin 2g was started on at [facility], ID consultation in place for further recommendations most recent blood culture showing clearing of the bacteremia. Repeat cultures have been taken here and pending. Antibiotics have been changed to IV cefazolin. No plans for surgical intervention at this time. Surgicel planning for knee procedure on 04/29 with preop cardiac evaluation -Back pain, follow-up MRI of the lumbar spine -Sepsis source of infection possibly an infected left knee prosthesis s/p arthrocentesis of the left knee at [facility] following -History of esophageal varices with banding in january -Hypokalemia patient will receive oral supplementation and repeat labs in the AM -Hx of cirrhosis, abdominal ascites ultrasound showing significant ascites s/p paracentesis with 1.5 L off and patient has been started on aldactone and lasix BID. -Hx of GERD -Diabetes Mellitus type 2 hgb A1C 6.9 continue on accuchecks achs and sliding scale insulin. -History of left TKA -Hypertension continues on losartan BID and atenolol. -Hemorrhoids -Chronic alcohol use monitor for alcohol withdrawal Hx of gout continue on allopurinol, GI prophylaxis DVT prophylaxis
[2023-04-26 22:27] LABS: Glucose,Whole Blood 138 mg/dL (70-110)
--- NOTE | 2023-04-26 22:38 | P.PN ---
Subjective Progress Note Date: 04/24/23 Principal diagnosis: Reason for follow-up with Streptococcus bacteremia and concern for possible left knee septic arthritis Patient is a 67-year-old male with a past medical history significant for chronic alcoholism cirrhosis diabetes mellitus reflux in this patient who did have a left knee arthroplasty done by Dr. Bishop patient recently presented to [facility] about a week ago for evaluation of fever patient did have Streptococcus agalactiae bacteremia and the patient was noticed to have some swelling to the left knee s/p aspirate with a white count of 20,000 concerning for septic need for the patient was transferred to [facility] to be evaluated by his orthopedic surgeon. On today's evaluation that is 04/24/2023, the patient denies having any fever or any chills, the patient is breathing comfortably on room air patient denies hav ing any chest pain shortness of breath or cough no nausea vomiting no abdominal pain overall stiffness and swelling to the left knee has decreased no abdominal pain no diarrhea. The patient did have white count of 6.0 creatinine 0.50 paracentesis fluid only 53 WBC blood culture so far pending Objective - Vital Signs Vital signs: Vital Signs Temp 98.6 F 04/24/23 02:05 Pulse 72 04/24/23 02:05 Resp 18 04/24/23 02:05 BP 148/84 04/24/23 02:05 Pulse Ox 98 04/24/23 02:05 FiO2 Intake & Output 04/23/23 04/24/23 04/24/23 18:59 06:59 18:59 Intake Total 750 Output Total 500 3 Balance 250 -3 Intake: Intake, IV Titration 100 Amount ceFAZolin 2 gm In Sodium 100 Chloride 0.9% 50 ml @ 100 mls/hr IVPB Q8HR [facility] Rx# :[id number] Oral 650 Output: Urine 500 Stool 3 Other: Voiding Method Urinal # Voids 2 - Exam GENERAL DESCRIPTION: An elderly male lying in bed in no distress RESPIRATORY SYSTEM: Unlabored breathing , decreased breath sounds at bases HEART: S1 S2 regular rate and rhythm , ABDOMEN: Soft , no tenderness EXTREMITIES: Left knee incision is intact did have some swelling And warmth - Labs CBC & Chem 7: 04/26/23 05:20 04/26/23 05:20 Labs: Abnormal Lab Results - Last 24 Hours (Table) 04/23/23 04/23/23 04/23/23 Range/Units 10:36 10:36 10:36 RBC 3.03 L (4.30-5.90) m/uL Hgb 8.1 L (13.0-17.5) gm/dL Hct 25.4 L (39.0-53.0) % RDW 17.5 H (11.5-15.5) % Plt Count 139 L (150-450) k/uL Lymphocytes # 0.8 L (1.0-4.8) k/uL ESR (0-20) mm/Hr Sodium 133 L (137-145) mmol/L Potassium 3.1 L (3.5-5.1) mmol/L Chloride 108 H (98-107) mmol/L Carbon Dioxide 18 L (22-30) mmol/L Creatinine 0.52 L (0.66-1.25) mg/dL Glucose 122 H (74-99) mg/dL POC Glucose (mg/dL) (70-110) mg/dL Calcium 7.8 L (8.4-10.2) mg/dL C-Reactive Protein 6.7 H (<1.0) mg/dL Fluid Appearance (Clear) 04/23/23 04/23/23 04/23/23 Range/Units 10:36 12:19 16:31 RBC (4.30-5.90) m/uL Hgb (13.0-17.5) gm/dL Hct (39.0-53.0) % RDW (11.5-15.5) % Plt Count (150-450) k/uL Lymphocytes # (1.0-4.8) k/uL ESR 62 H (0-20) mm/Hr Sodium (137-145) mmol/L Potassium (3.5-5.1) mmol/L Chloride (98-107) mmol/L Carbon Dioxide (22-30) mmol/L Creatinine (0.66-1.25) mg/dL Glucose (74-99) mg/dL POC Glucose (mg/dL) 121 H 134 H (70-110) mg/dL Calcium (8.4-10.2) mg/dL C-Reactive Protein (<1.0) mg/dL Fluid Appearance (Clear) 04/23/23 04/23/23 04/24/23 Range/Units 16:36 21:24 06:07 RBC (4.30-5.90) m/uL Hgb (13.0-17.5) gm/dL Hct (39.0-53.0) % RDW (11.5-15.5) % Plt Count (150-450) k/uL Lymphocytes # (1.0-4.8) k/uL ESR (0-20) mm/Hr Sodium (137-145) mmol/L Potassium (3.5-5.1) mmol/L Chloride (98-107) mmol/L Carbon Dioxide (22-30) mmol/L Creatinine (0.66-1.25) mg/dL Glucose (74-99) mg/dL POC Glucose (mg/dL) 186 H 113 H (70-110) mg/dL Calcium (8.4-10.2) mg/dL C-Reactive Protein (<1.0) mg/dL Fluid Appearance Hazy A (Clear) 04/24/23 Range/Units 06:47 RBC 3.22 L (4.30-5.90) m/uL Hgb 8.7 L (13.0-17.5) gm/dL Hct 27.5 L (39.0-53.0) % RDW 17.4 H (11.5-15.5) % Plt Count (150-450) k/uL Lymphocytes # 0.8 L (1.0-4.8) k/uL ESR (0-20) mm/Hr Sodium (137-145) mmol/L Potassium (3.5-5.1) mmol/L Chloride (98-107) mmol/L Carbon Dioxide (22-30) mmol/L Creatinine (0.66-1.25) mg/dL Glucose (74-99) mg/dL POC Glucose (mg/dL) (70-110) mg/dL Calcium (8.4-10.2) mg/dL C-Reactive Protein (<1.0) mg/dL Fluid Appearance (Clear) Assessment and Plan (1) Bacteremia due to Streptococcus Current Visit: Yes Status: Acute Code(s): R78.81 - BACTEREMIA; B95.5 - UNSP STREPTOCOCCUS THE CAUSE OF DISEASES CLASSD [facility] SNOMED Code(s): 301325970410 (2) Allergy to sulfa drugs Current Visit: Yes Status: Acute Code(s): Z88.2 - ALLERGY STATUS TO SULFONAMIDES SNOMED Code(s): 44822820 (3) Septic arthritis of knee, left Current Visit: Yes Status: Acute Code(s): M00.9 - PYOGENIC ARTHRITIS, UNSPECIFIED SNOMED Code(s): 148443940 Plan: 1patient presented to hospital with weakness fever did have Streptococcus agalactiae bacteremia in this patient who did have a significant swelling to the left knee along with the stiffness with aspiration of the left knee cell count more than 20,000 white cell high clinical suspicious for septic arthritis likely related to streptococci 2- -blood cultures has been repeated document clearance of bacteremia 3patient to continue with cefazolin 2 g every 8 hours Dictation was produced using [employer] dictation software. please excuse any grammatical, word or spelling errors. Time with Patient: Less than 30
--- NOTE | 2023-04-26 22:40 | P.PN ---
Subjective Progress Note Date: 04/25/23 Principal diagnosis: Reason for follow-up with Streptococcus bacteremia and concern for possible left knee septic arthritis Patient is a 67-year-old male with a past medical history significant for chronic alcoholism cirrhosis diabetes mellitus reflux in this patient who did have a left knee arthroplasty done by Dr. Bishop patient recently presented to [facility] about a week ago for evaluation of fever patient did have Streptococcus agalactiae bacteremia and the patient was noticed to have some swelling to the left knee s/p aspirate with a white count of 20,000 concerning for septic need for the patient was transferred to [facility] to be evaluated by his orthopedic surgeon. On today's evaluation that is 04/25/2023, the patient remains to be afebrile, the patient is breathing comfortably on room air without need for supplemental ox ygen, patient denies having any chest pain shortness of breath or cough no nausea vomiting no abdominal pain, the patient stiffness and swelling to the left knee has decreased The patient did have white count of 6.0 as of yesterday creatinine 0.60 sed rate is 62 CRP 6.2 Objective - Vital Signs Vital signs: Vital Signs Temp 99.5 F 04/25/23 13:00 Pulse 81 04/25/23 13:00 Resp 17 04/25/23 13:00 BP 160/77 04/25/23 13:00 Pulse Ox 98 04/25/23 13:00 FiO2 Intake & Output 04/24/23 04/25/23 04/25/23 18:59 06:59 18:59 Intake Total 50 Output Total 3 450 Balance -3 -450 50 Intake: Intake, IV Titration 50 Amount ceFAZolin 2 gm In Sodium 50 Chloride 0.9% 50 ml @ 100 mls/hr IVPB Q8HR [facility] Rx# :[id number] Output: Urine 450 Stool 3 Other: Voiding Method Urinal # Voids 2 # Bowel Movements 2 - Exam GENERAL DESCRIPTION: An elderly male lying in bed in no distress RESPIRATORY SYSTEM: Unlabored breathing , decreased breath sounds at bases HEART: S1 S2 regular rate and rhythm , ABDOMEN: Soft , no tenderness EXTREMITIES: Left knee incision is intact did have some swelling And warmth - Labs CBC & Chem 7: 04/26/23 05:20 04/26/23 05:20 Labs: Abnormal Lab Results - Last 24 Hours (Table) 04/24/23 04/25/23 04/25/23 Range/Units 20:11 05:41 06:03 Carbon Dioxide 14.9 L (21.6-31.8) mmol/L Anion Gap 12.10 H (4.00-12.00) mmol/L BUN 5.3 L (9.0-27.0) mg/dL BUN/Creatinine Ratio 8.83 L (12.00-20.00) Ratio Glucose 114 H (70-110) mg/dL POC Glucose (mg/dL) 168 H 118 H (70-110) mg/dL Calcium 8.4 L (8.7-10.3) mg/dL 04/25/23 04/25/23 Range/Units 11:24 17:02 Carbon Dioxide (21.6-31.8) mmol/L Anion Gap (4.00-12.00) mmol/L BUN (9.0-27.0) mg/dL BUN/Creatinine Ratio (12.00-20.00) Ratio Glucose (70-110) mg/dL POC Glucose (mg/dL) 154 H 146 H (70-110) mg/dL Calcium (8.7-10.3) mg/dL Microbiology - Last 24 Hours (Table) 04/24/23 06:47 Blood Culture - Preliminary Blood 04/23/23 16:36 Acid Fast Bacilli Smear - Preliminary Ascites Fluid 04/23/23 16:36 Gram Stain - Preliminary Ascites Fluid Body Fluid Culture - Preliminary Assessment and Plan (1) Allergy to sulfa drugs Current Visit: Yes Status: Acute Code(s): Z88.2 - ALLERGY STATUS TO SULFONAMIDES SNOMED Code(s): 68502105 (2) Bacteremia due to Streptococcus Current Visit: Yes Status: Acute Code(s): R78.81 - BACTEREMIA; B95.5 - UNSP STREPTOCOCCUS THE CAUSE OF DISEASES CLASSD [facility] SNOMED Code(s): 061830644880 (3) Septic arthritis of knee, left Current Visit: Yes Status: Acute Code(s): M00.9 - PYOGENIC ARTHRITIS, UNSPECIFIED SNOMED Code(s): 740508857 Plan: 1patient presented to hospital with weakness fever did have Streptococcus agalactiae bacteremia in this patient who did have a significant swelling to the left knee along with the stiffness with aspiration of the left knee cell count more than 20,000 white cell high clinical suspicious for septic arthritis likely related to streptococci 2- -blood cultures has been repeated and so far negative 3patient to continue with cefazolin 2 g every 8 hours, awaiting further surgical intervention per orthopedics Dictation was produced using [employer] dictation software. please excuse any grammatical, word or spelling errors. Time with Patient: Less than 30
--- NOTE | 2023-04-26 22:42 | P.PN ---
Subjective Progress Note Date: 04/26/23 Principal diagnosis: Reason for follow-up with Streptococcus bacteremia and concern for possible left knee septic arthritis Patient is a 67-year-old male with a past medical history significant for chronic alcoholism cirrhosis diabetes mellitus reflux in this patient who did have a left knee arthroplasty done by Dr. Bishop patient recently presented to [facility] about a week ago for evaluation of fever patient did have Streptococcus agalactiae bacteremia and the patient was noticed to have some swelling to the left knee s/p aspirate with a white count of 20,000 concerning for septic need for the patient was transferred to [facility] to be evaluated by his orthopedic surgeon. On today's evaluation that is 04/26/2023, the patient continues to be afebrile, the patient is breathing comfortably on room air, patient denies having any magi st pain shortness of breath or cough, the patient denies nausea vomiting no abdominal pain, the patient stiffness and swelling to the left knee has decreased in intensity Patient did have white count 6.3, creatinine 0.4 7 repeat cultures so far pending Objective - Vital Signs Vital signs: Vital Signs Temp 98.6 F 04/26/23 07:38 Pulse 92 04/26/23 07:38 Resp 19 04/26/23 07:38 BP 171/74 04/26/23 07:38 Pulse Ox 97 04/26/23 07:38 FiO2 Intake & Output 04/25/23 04/26/23 04/26/23 18:59 06:59 18:59 Intake Total 50 900 Output Total 425 Balance 50 475 Intake: Intake, IV Titration 50 Amount ceFAZolin 2 gm In Sodium 50 Chloride 0.9% 50 ml @ 100 mls/hr IVPB Q8HR [facility] Rx# :[id number] Oral 900 Output: Urine 425 Other: # Voids 3 - Exam GENERAL DESCRIPTION: An elderly male lying in bed in no distress RESPIRATORY SYSTEM: Unlabored breathing , decreased breath sounds at bases HEART: S1 S2 regular rate and rhythm , ABDOMEN: Soft , no tenderness EXTREMITIES: Left knee incision is intact did have some swelling And warmth - Labs CBC & Chem 7: 04/26/23 05:20 04/26/23 05:20 Labs: Abnormal Lab Results - Last 24 Hours (Table) 04/25/23 04/25/23 04/26/23 Range/Units 17:02 20:54 05:19 RBC (4.30-5.90) m/uL Hgb (13.0-17.5) gm/dL Hct (39.0-53.0) % RDW (11.5-15.5) % Chloride (98-107) mmol/L Carbon Dioxide (22-30) mmol/L BUN (9-20) mg/dL Creatinine (0.66-1.25) mg/dL Glucose (74-99) mg/dL POC Glucose (mg/dL) 146 H 191 H 124 H (70-110) mg/dL Calcium (8.4-10.2) mg/dL 04/26/23 04/26/23 04/26/23 Range/Units 05:20 05:20 11:16 RBC 3.49 L (4.30-5.90) m/uL Hgb 9.5 L (13.0-17.5) gm/dL Hct 29.5 L (39.0-53.0) % RDW 18.2 H (11.5-15.5) % Chloride 114 H (98-107) mmol/L Carbon Dioxide 14 L (22-30) mmol/L BUN 5 L (9-20) mg/dL Creatinine 0.47 L (0.66-1.25) mg/dL Glucose 110 H (74-99) mg/dL POC Glucose (mg/dL) 127 H (70-110) mg/dL Calcium 8.3 L (8.4-10.2) mg/dL Microbiology - Last 24 Hours (Table) 04/23/23 16:36 Gram Stain - Preliminary Ascites Fluid Body Fluid Culture - Preliminary 04/24/23 06:47 Blood Culture - Preliminary Blood Assessment and Plan (1) Allergy to sulfa drugs Current Visit: Yes Status: Acute Code(s): Z88.2 - ALLERGY STATUS TO SULFONAMIDES SNOMED Code(s): 95832678 (2) Bacteremia due to Streptococcus Current Visit: Yes Status: Acute Code(s): R78.81 - BACTEREMIA; B95.5 - UNSP STREPTOCOCCUS THE CAUSE OF DISEASES CLASSD [facility] SNOMED Code(s): 392685981456 (3) Septic arthritis of knee, left Current Visit: Yes Status: Acute Code(s): M00.9 - PYOGENIC ARTHRITIS, UNSPECIFIED SNOMED Code(s): 157959938 Plan: 1patient presented to hospital with weakness fever did have Streptococcus agalactiae bacteremia in this patient who did have a significant swelling to the left knee along with the stiffness with aspiration of the left knee cell count more than 20,000 white cell high clinical suspicious for septic arthritis likely related to streptococci 2- -blood cultures has been repeated and so far negative 3patient was complaining of some back pain and MRI of the back has been ordered by orthopedics 4-patient will continue with cefazolin 2 g every 8 hours, awaiting further surgical intervention per orthopedics Dictation was produced using [employer] dictation software. please excuse any grammatical, word or spelling errors. Time with Patient: Less than 30
[2023-04-27] MEDS: guaiFENesin SYRUP 100MG/5ML 200 MG/10 ML CUP PO PRN ×2 (00:01→21:38)
[2023-04-27 05:37] LABS: Glucose,Whole Blood 175 mg/dL (70-110)
[2023-04-27] MEDS: PANTOPRAZOLE 40 MG TABLET PO SCH (06:22)
[2023-04-27] MEDS: ACETAMINOPHEN TAB 325 MG TAB PO PRN (06:22)
[2023-04-27] MEDS: INSULIN ASPART (NovoLOG) 100 UNIT/ML VIAL SQ SCH ×4 (06:22→21:30)
--- NOTE | 2023-04-27 08:46 | MR ---
EXAMINATION TYPE: MR lumbar spine wo/w con DATE OF EXAM: 04/26/2023 COMPARISON: HISTORY: Possible osteo-discitis of lumbar spine CONTRAST: 8 mL intravenous Gadavist. TECHNIQUE: Multiplanar, multisequence images of the lumbar spine were acquired. FINDINGS: There is diminished signal within the anterior spinal canal with surrounding enhancement. This has mo derate thecal sac compression greatest at the superior L2 level. Example series 901 image 23. Communi cation with a disc space not clearly evident. Clinical Consideration for epidural abscess. Greatest m easurement this measured 0.9 x 0.5 cm. This extends from the superior endplate of T12 to the inferior endplate of L2, measuring 8.8 cm in length. This is moderate to severe thecal sac compression at the L2 level. Milder anterior thecal sac compression is present more superiorly. Report was called to the floor patient nurse Aletha by Dr. Coy by telephone 0894 hours 04/27/2023. L5-S1: No significant disc bulge or disc herniation. Disc uncovering is present. Severe right and lef t foraminal stenosis is present. L4-L5: Mild disc bulge is present with anterior thecal sac contact. Facet hypertrophy and ligamentum flavum laxity is posterior lateral thecal sac compression. Moderate to severe right and severe left f oraminal stenosis is present correlating with the radicular symptoms. L3-L4: There is narrowing of disc height. Broad-based disc bulge has mild anterior thecal sac german tomas. Severe bilateral foraminal stenosis is present. Some chronic Modic type II degenerative changes along the endplates is likely present. L2-L3: Disc space narrowing is present. Some minimal residual disc bulge with mild anterior thecal sa c compression. No spinal canal stenosis is present. Moderate to severe foraminal stenosis is present L1-L2: There is narrowing of disc height. Minimal residual disc bulge has anterior thecal sac contact . There is increased signal on postcontrast T1-weighted images along the endplates of L1-L2. Epidural space enhancement appears to be present discussed above. Discitis should be considered within the di fferential. T12-L1: Disc height is preserved. No focal disc herniation or significant disc bulge is present. No s gabriella canal stenosis is evident. Epidural space impression is present anteriorly. IMPRESSION: 1. Enhancement surrounding low signal area within the epidural space extending from T12 through L2 colon spicious for epidural abscess. Clinical correlation recommended. 2. Possible discitis L1-2 with some endplate change without loss of vertebral body height. 3. Multilevel severe foraminal stenosis.
[2023-04-27] MEDS: FUROSEMIDE 20 MG TAB PO SCH ×2 (09:01→16:01)
[2023-04-27] MEDS: SPIRONOLACTONE 25 MG TAB PO SCH (09:01)
[2023-04-27] MEDS: atenoloL 50 MG TAB PO SCH (09:01)
[2023-04-27] MEDS: MULTIVITAMINS, THERA 1 EACH TAB PO SCH (09:01)
[2023-04-27] MEDS: CHOLECALCIFEROL 25 MCG (1000 IU) TABLET PO SCH (09:01)
[2023-04-27] MEDS: ASCORBIC ACID 500 MG TAB PO SCH (09:01)
[2023-04-27] MEDS: allopurinoL 300 MG TAB PO SCH (09:01)
[2023-04-27] MEDS: LOSARTAN 50 MG TAB PO SCH ×2 (09:02→21:30)
[2023-04-27 10:49] LABS: Glucose,Whole Blood 120 mg/dL (70-110)
[2023-04-27] MEDS: HEPARIN SODIUM,PORCINE 5,000 UNIT/ML 1 ML VIAL SQ SCH ×2 (11:23→21:30)
[2023-04-27] MEDS: ASPIRIN 81 MG PO SCH (11:23)
--- NOTE | 2023-04-27 12:40 | P.PN ---
Subjective Progress Note Date: 04/27/23 Principal diagnosis: Bacteremia, possible left periprosthetic knee infection, back pain, epidural abscess Patient was examined today at bedside, patient's was also present. I was able to discuss the MRI findings, this concluded report and images with my attending Dr. Narayanan. There is epidural abscess present in the areas of T11-L3. There are multilevel areas of severe spondylosis with stenosis present in the lumbar spine. There is spinal listhesis noted at L5-S1. Reports of the lumbar spine MRI dated mention likely erosive changes involving L1-L2 area with significant concern for osteo discitis. At bedside today, he seems comfortable on exam. The left knee is causing him very minimal symptoms of any at this time. He does have some vague back pain. Patient states that initially when he was evaluated at [facility] he was having severe back pain. Since being on the IV antibiotics symptoms have seemed to improve. The patient's labs seems to be improving. After discussion of both Dr. Bishop and Dr. Narayanan, would like to proceed with lumbar surgery at this time, more specifically a T11-L3 posterior lateral decompression and fusion with epidural phlegmon/abscess evacuation. Surgery scheduled for 04/29/2023. At this time we'll be holding off on the revision surgery of his left knee. I plan to aspirate the left knee today and send off fluid for cell count, Gram stain, anaerobic, aerobic and fungal cultures. Further recommendations to follow for his left knee. Objective - Vital Signs Vital signs: Vital Signs Temp 98.8 F 04/27/23 07:21 Pulse 87 04/27/23 07:21 Resp 19 04/27/23 07:21 BP 169/79 04/27/23 07:21 Pulse Ox 97 04/27/23 07:21 FiO2 Intake & Output 04/26/23 04/27/23 04/27/23 18:59 06:59 18:59 Output Total 350 300 Balance -350 -300 Output: Urine 350 300 - Exam Left lower extremity: There is no obvious erythema or skin changes noted. There is a well-healed incision over the anterior aspect of the knee. There is a notable effusion pres ent on the knee. Passive and active range of motion of the knee reproduces no pain. Patient has been up and ambulating in the halls over the last 48 hours with the assistance of a walker and physical therapy. Calf is soft, no tenderness with palpation Logroll maneuver reproduces no pain Plantar flexion, dorsiflexion, EHL, FHL are intact Sensory exam to light touch is intact throughout the extremity, dorsalis pedis pulses 2+ Gen: AOx3, NAD VSS stable at this time Integument: No obvious open lesions, areas of redness or skin changes in the thoracic/lumbar spine Palpation: Mild tenderness with palpation noted to the lower lumbar paraspinal region ROM: Full range of motion in all major muscle use of the bilateral upper and lower extremities, no focal deficits Sensory Exam: Senory exam to light touch is intact C5-T1 Senosry exam to light touch is intact L2-S1 Motor: 5/5 strength appreciated in the bilateral upper extremities with shoulder elevation, shoulder abduction, wrist extension, wrist flexion, elbow extension, elbow flexion, value advisor 5/5 strength appreciated in bilateral lower extremities with hip flexion, knee extension, knee flexion, plantar flexion, dorsiflexion, EHL, FHL Reflexes: 2/4 in all UE and LE Negative Diana's bilaterally Negative Babinski bilaterally Negative clonus bilaterally - Labs CBC & Chem 7: 04/26/23 05:20 04/26/23 05:20 Labs: Abnormal Lab Results - Last 24 Hours (Table) 04/26/23 04/26/23 04/27/23 Range/Units 17:51 22:26 05:36 POC Glucose (mg/dL) 127 H 138 H 175 H (70-110) mg/dL 04/27/23 Range/Units 10:47 POC Glucose (mg/dL) 120 H (70-110) mg/dL Microbiology - Last 24 Hours (Table) 04/23/23 16:36 Gram Stain - Preliminary Ascites Fluid Body Fluid Culture - Preliminary 04/24/23 06:47 Blood Culture - Preliminary Blood Assessment and Plan Assessment: Left knee effusion Possible left knee periprosthetic infection Bacteremia Low back pain Epidural abscess thoracic/lumbar spine Cirrhosis Multiple medical comorbidities Plan: After discussion with Dr. Bishop, Dr. Narayanan patient and patient's , we will be holding off on the left knee surgery at this time. Patient is scheduled for a T11-L3 decompression and fusion along with epidural abscess/phlegmon evacuation for 04/29/2023. Consults have been placed for cardiology clearance. Also appreciate internal medicine and infectious disease recommendations. Patient needs to be medically optimized prior to surgery Patient and are both notify the Dr. Narayanan will be available to discuss surgery in more detail prior to surgery. Consent will be obtained prior to surgery Continue IV antibiotics at this time Weight-bear as tolerated, recommend walker Pain control, utilize Tylenol on low-dose narcotics if needed Further recommendations to follow Time with Patient: Less than 30
--- NOTE | 2023-04-27 12:52 | P.PN ---
Subjective This is a 67-year-old male patient of Dr. Loli Campbell, patient has medical history of abdominal ascites and liver cirrhosis, chronic alcoholism, diabetes mellitus, hemorrhoids, gastroesophageal reflux disease. Patient follows with dr rocco turcios underwent upper and lower endoscopy in January of 2023 has history of esophageal varices which underwent banding in Jan as well. Has a history of left lower extremity total knee arthroplasty done a year ago, initially presented to [facility] with left lower extremity edema with concern for infected prosthetic of the left knee. He presented to [facility] with fevers progressive weakness and back pain. States fever was as high as 104. He was also anemic hemoglobin 6.5 requiring 2 unit of PRBC. Patient was found to have strep agalactaie bacteremia with features of sepsis over at [facility]. He was treated with IV ceftriaxone 2 grams. Patient also with recent influenza infection and hypoxia at [facility]. He had a venous doppler of the left leg at [facility] negative for acute DVT. He underwent arthrocentesis of the left knee joint effusion showing 20,000 WBCs and suspicious for infected prosthesis was recommended to transfer to [facility] for further evaluation by Dr Bishop. Yesterday before transfer he underwent work up for abdominal ascites which he has undergo paracentesis in the past, he had an abdominal ultrasound showing significant amount of intraabdominal ascites. IR consulted. He is admitted to this hospital with consults placed to [place] and infectious disease. 04/24/2023 Patient evaluated today sitting up in bed. He was seen in consultation by ID who has changed antibiotics to IV cefazolin from ceftriaxone with plans to repeat blood culture. Underwent paracentesis 1.5 L off. Sodium 135, potassium 3.3, BUN 8, creatinine 0.50, magnesium 1.8, CRP 6.2. Orthopedics not recommending any surgical intervention at this time. 04/25/2023 Patient is evaluated today resting in bed. pts is at the bedside and plan of care was discussed thoroughly. Patient remains on IV Cefazolin with repeat blood cultures pending and negative so far. Infectious disease is following this case. He is status post paracentesis. Again orthopedics not recommending any surgical intervention for the right knee septic arthritis. 04/26/2023 Patient is still complaining from left knee swelling, patient states is better, pain controlled no erythema. Orthopedic surgery planning for surgery for infected prosthesis onto stages first one on 04/29 MRI of the lumbar spine is ordered to rule out infection Cardiology team preoperative evaluation is ordered Patient remains on IV cefazolin Repeat blood culture/6 still show no growth ID team on the case 04/27/2023 Patient with minimal back pain and his left knee with no significant pain is still warm and swollen with no redness. Initially orthopedic team are planning for surgical debridement of his left knee. However MRI of the lumbar spine showing epidural abscess of the distal thoracic and irrigated proximal lumbar vertebrae. Orthopedic team still on the case with follow the patient and needs surgery was held and replaced to do lumbar surgery with ( T11-L3 decompression and fusion along with epidural abscess/phlegmon evacuation for 04/29/2023.) Preoperative cardiac evaluation is requested Chest pain or dyspnea No change in urine or bowel habits. No fever. Monitor blood pressure Continue with cefazolin Review of systems CONSTITUTIONAL: No fever, no malaise, no fatigue. HEENT: No recent visual problems or hearing problems. Denied any sore throat. CARDIOVASCULAR: No orthopnea, PND, no palpitations, no syncope. PULMONARY: No shortness of breath, no cough, no hemoptysis. GASTROINTESTINAL: No diarrhea, no nausea, no vomiting, no abdominal pain. Normoactive bowel sounds. NEUROLOGICAL: No headaches, no weakness, no numbness. Active Medications Generic Name Dose Route Start Last Admin Trade Name Freq PRN Reason Stop Dose Admin Acetaminophen 650 mg 04/23/23 00:18 04/26/23 14:04 Acetaminophen Tab 325 Mg Tab PO 650 mg Q6HR PRN Administration Fever and/ or Pain Albuterol/Ipratropium 3 ml 04/23/23 00:16 Ipratropium-Albuterol 3 Ml Neb INHALATION RT-QID PRN Shortness Of Breath Or Wheezing Allopurinol 300 mg 04/24/23 09:00 04/26/23 08:06 Allopurinol 300 Mg Tab PO 300 mg DAILY MARIO Administration Ascorbic Acid 1,000 mg 04/23/23 10:00 04/26/23 08:06 Ascorbic Acid 500 Mg Tab PO 1,000 mg DAILY MARIO Administration Aspirin 81 mg 04/23/23 10:00 04/26/23 08:06 Aspirin 81 Mg PO 81 mg DAILY MARIO Administration Atenolol 50 mg 04/23/23 10:00 04/26/23 08:06 Atenolol 50 Mg Tab PO 50 mg DAILY MARIO Administration Cholecalciferol 50 mcg 04/23/23 10:00 04/26/23 08:06 Cholecalciferol 25 Mcg (1000 Iu) Tablet PO 50 mcg DAILY MARIO Administration Colesevelam HCl 625 mg 04/23/23 17:30 04/26/23 18:04 Colesevelam 625 Mg Tab PO 625 mg AC-SUPPER MARIO Administration Furosemide 20 mg 04/24/23 16:00 04/26/23 15:25 Furosemide 20 Mg Tab PO 20 mg BID@0900,1600 MARIO Administration Guaifenesin 200 mg 04/23/23 22:07 04/25/23 21:38 Guaifenesin Syrup 100mg/5ml 200 Mg/10 Ml Cup PO 200 mg Q6HR PRN Administration Cough Heparin Sodium (Porcine) 5,000 unit 04/23/23 21:00 04/26/23 08:07 Heparin Sodium,Porcine 5,000 Unit/Ml 1 Ml Vial SQ 5,000 unit Q12HR MARIO Administration Hydralazine HCl 10 mg 04/25/23 14:42 Hydralazine Hcl 20 Mg/Ml 1 Ml Vial IVP Q6HR PRN Blood Pressure - High Cefazolin Sodium 2 gm/ Sodium 50 mls @ 100 mls/hr 04/23/23 16:00 04/26/23 15:25 Chloride IVPB 100 mls/hr Q8HR MARIO Administration Protocol Insulin Aspart 0 unit 04/23/23 07:30 04/26/23 18:02 Insulin Aspart (Novolog) 100 Unit/Ml Vial SQ Not Given ACHS MARIO Protocol Losartan Potassium 50 mg 04/23/23 10:00 04/26/23 08:07 Losartan 50 Mg Tab PO 50 mg BID MARIO Administration Multivitamins 1 each 04/23/23 10:00 04/26/23 08:06 Multivitamins, Thera 1 Each Tab PO 1 each DAILY MARIO Administration Pantoprazole Sodium 40 mg 04/23/23 10:00 04/26/23 06:19 Pantoprazole 40 Mg Tablet PO 40 mg 0730 MARIO Administration Spironolactone 50 mg 04/24/23 10:00 04/26/23 08:06 Spironolactone 25 Mg Tab PO 50 mg DAILY MARIO Administration Objective - Vital Signs Vital signs: Vital Signs Temp 98.8 F 04/27/23 07:21 Pulse 87 04/27/23 07:21 Resp 19 04/27/23 07:21 BP 169/79 04/27/23 07:21 Pulse Ox 97 04/27/23 07:21 FiO2 Intake & Output 04/26/23 04/27/23 04/27/23 18:59 06:59 18:59 Output Total 350 300 Balance -350 -300 Output: Urine 350 300 - Exam GENERAL: The patient is alert and oriented x3, not in any acute distress. Well developed, well nourished. HEENT: Pupils are round and equally reacting to light. EOMI. No scleral icterus. No conjunctival pallor. Normocephalic, atraumatic. No pharyngeal erythema. No thyromegaly. CARDIOVASCULAR: S1 and S2 present. No murmurs, rubs, or gallops. PULMONARY: Chest is clear to auscultation, no wheezing , no crackles. ABDOMEN: Soft, nontender, nondistended, normoactive bowel sounds. No palpable organomegaly. MUSCULOSKELETAL: No joint swelling or deformity. -EXTREMITIES: No cyanosis, clubbing, or pedal edema. Left knee is swollen NEUROLOGICAL: Gross neurological examination did not reveal any focal deficits. SKIN: No rashes. no petechiae. - Labs CBC & Chem 7: 04/26/23 05:20 04/26/23 05:20 Labs: Abnormal Lab Results - Last 24 Hours (Table) 04/26/23 04/26/23 04/26/23 Range/Units 11:16 17:51 22:26 POC Glucose (mg/dL) 127 H 127 H 138 H (70-110) mg/dL 04/27/23 04/27/23 Range/Units 05:36 10:47 POC Glucose (mg/dL) 175 H 120 H (70-110) mg/dL Microbiology - Last 24 Hours (Table) 04/23/23 16:36 Gram Stain - Preliminary Ascites Fluid Body Fluid Culture - Preliminary 04/24/23 06:47 Blood Culture - Preliminary Blood Assessment and Plan Assessment: -Strep Algalactaie bacteremia possible source of infection the left knee continue on the IV rocephin 2g was started on at [facility], ID consultation in place for further recommendations most recent blood culture showing clearing of the bacteremia. Repeat cultures have been taken here and pending. Antibiotics have been changed to IV cefazolin. Surgicel planning for knee procedure on 04/29 with preop cardiac evaluation ( this plan for surgery was held because of his new lumbar abscess) -Back pain, MRI of the lumbar spine: Epidural abscess. Orthopedic team are planning for T11-L3 decompression and fusion along with epidural abscess/phlegmon evacuation for 04/29/2023. -Sepsis source of infection possibly an infected left knee prosthesis s/p arthrocentesis of the left knee at [facility] following -History of esophageal varices with banding in january -Hypokalemia patient will receive oral supplementation and repeat labs in the AM -Hx of cirrhosis, abdominal ascites ultrasound showing significant ascites s/p paracentesis with 1.5 L off and patient has been started on aldactone and lasix BID. -Hx of GERD -Diabetes Mellitus type 2 hgb A1C 6.9 continue on accuchecks achs and sliding scale insulin. -History of left TKA -Hypertension continues on losartan BID and atenolol. -Hemorrhoids -Chronic alcohol use monitor for alcohol withdrawal Hx of gout continue on allopurinol, GI prophylaxis DVT prophylaxis
--- NOTE | 2023-04-27 14:27 | P.CRDCN ---
History of Present Illness Consult date: 04/27/23 Reason for Consult (text): cardiac clearance History of present illness: History of present illness: This is a 67-year-old male patient previously seen by Dr. Vargas with past medical history of hypertension, dyslipidemia, family history of premature coronary artery disease, cirrhosis of the liver with esophageal varices. We have been asked to evaluate the patient for cardiac clearance. Patient has history that he was at [facility] initially on 04/10 was in the emergency center tested negative for Covid and was sent home. He had presented with fever and chills. About a week later patient was unable to stand up and he went back to [facility]. He was placed on pain medications and muscle relaxers. He states that eventually he was not able to stand her weight and he had the knee drained where he had previously had arthroplasty. Patient was treated for Streptococcus agalactia bacteremia and found that left knee had septic arthritis. Patient was transferred to [facility] to be evaluated by orthopedics. Patient also found to have epidural abscess. He is tentatively scheduled for surgery on for T11-L3 decompression fusion and epidural abscess evacuation and left knee surgery will be done at a later time. Patient has undergone paracentesis on 04/26 with removal of 1360, rales. Blood cultures at [facility] are showing no growth at 48 hours. He also had echocardiogram done at [facility] which revealed EF of 55-60%, mild mitral regurgitation, moderate tricuspid regurgitation. WBC 6.3, hemoglobin 9.5, platelet count 223. Sodium 137, potassium 3.6, BUN 5 creatinine 0.47. Home cardiac medications: Aspirin 81 mg daily, atenolol 50 mg daily, losartan 50 mg twice daily. Lexiscan Cardiolite stress test performed in the office on 03/25/2021 was negative with normal myocardial perfusion and function. Review Of Systems: At the time of my exam: CONSTITUTIONAL: Denies fever or chills. CARDIOVASCULAR: Denies chest pain, Denies shortness of breath, no orthopnea, PND or palpitations. RESPIRATORY: Denies cough. GASTROINTESTINAL: Denies abdominal pain, diarrhea, constipation, nausea or vomiting. MUSCULOSKELETAL: Denies myalgias. NEUROLOGIC: Denies numbness, tingling or weakness. ENDOCRINE: Denies fatigue, weight change, polydipsia or polyurina. GENITOURINARY: Denies burning, hematuria or urgency with micturation. HEMATOLOGIC: Denies history of anemia or bleeding. Physical examination: Gen: This is a 67 year old male. He is resting in a chair and appears to be in no acute distress. VS: reviewed HEENT: Head is atraumatic, normocephalic. Pupils equal, round. Sclerae is anicteric. NECK: Supple. No JVD. LUNGS: Clear to auscultation. No wheezes or rhonchi. No intercostal retractions. HEART: Regular rate and rhythm. No murmur. ABDOMEN: Soft No tenderness. EXTREMITIES: No pedal edema. No calf tenderness. NEUROLOGICAL: Patient is awake, alert and oriented x3. Assessment: Epidural abscess Left knee septic arthroplasty Streptococcus bacteremia Hypertension Dyslipidemia Cirrhosis of the liver Plan: Continue patient's home cardiac medications Patient is at acceptable risk for surgical and anesthesia complications. He is known to have a normal LV function and had a normal stress test performed 2 years ago. Obtain EKG Further recommendations to follow based upon clinical course Thank you kindly for this consultation. Nurse practitioner note has been reviewed, I agree with documented findings and plan of care. Patient was seen and examined. Past Medical History Past Medical History: Diabetes Mellitus, GERD/Reflux, Hyperlipidemia, Hypertension, Osteoarthritis (OA) Additional Past Medical History / Comment(s): GOUT. LOWER BACK PAIN. HX OF COLON POLYP. ARTHRITIS KNEES. HX ESOPHAGEAL VARICES WITH BANDING. History of Any Multi-Drug Resistant Organisms: None Reported Past Surgical History: Cholecystectomy, Joint Replacement, Orthopedic Surgery Additional Past Surgical History / Comment(s): Surgery for deviated septum, bilateral cataracts removed, right knee arthroscopy, wisdom teeth removed, EGD with ESOPHAGEAL BANDS at [facility], COLONOSCOPIES, left knee replacement. Past Anesthesia/Blood Transfusion Reactions: No Reported Reaction Additional Past Anesthesia/Blood Transfusion Reaction / Comment(s): Woke up once when IV infiltrated during EGD. Past Psychological History: No Psychological Hx Reported Smoking Status: Former smoker Past Alcohol Use History: Occasional Additional Past Alcohol Use History / Comment(s): STARTED SMOKING AT AGE 18, QUIT AT AGE 22, SMOKED 1/2 PPD. Past Drug Use History: None Reported - Past Family History Mother Family Medical History: No Reported History Medications and Allergies Home Medications Medication Instructions Recorded Confirmed Type Colesevelam [Welchol] 1,875 tab PO AC-SUPPER 09/18/14 04/23/23 History allopurinoL [Zyloprim] 300 mg PO DAILY 09/18/14 04/23/23 History Multivitamin/Iron/Folic Acid 1 tab PO DAILY 11/19/17 04/22/23 History [Centrum Adults Tablet] Omeprazole 20 mg PO BID 03/07/21 04/22/23 History Losartan Potassium 50 mg PO BID 10/10/21 04/22/23 History atenoloL [Tenormin] 50 mg PO DAILY 10/10/21 04/22/23 History Ascorbic Acid [Vitamin C] 1,000 mg PO DAILY 01/28/23 04/22/23 History Aspirin [Adult Low Dose Aspirin EC] 81 mg PO DAILY 01/28/23 04/22/23 History Cholecalciferol [Vitamin D3 (25 50 mcg PO DAILY 04/22/23 04/22/23 History Mcg = 1000 Iu)] Allergies Allergy/AdvReac Type Severity Reaction Status Date / Time Sulfa (Sulfonamide Allergy Rash/Hives Verified 04/22/23 21:42 Antibiotics) Physical Exam Vitals: Vital Signs Temp Pulse Resp BP Pulse Ox 04/27/23 07:21 98.8 F 87 19 169/79 97 04/27/23 02:00 97.8 F 88 152/80 96 04/26/23 20:00 98.9 F 87 16 167/77 99 04/26/23 15:31 99.2 F 04/26/23 13:53 99.1 F 85 20 163/78 97 Intake and Output 04/26/23 04/27/23 04/27/23 22:59 06:59 14:59 Output Total 350 300 Balance -350 -300 Output: Urine 350 300 Results 04/26/23 05:20 04/26/23 05:20 Current Medications Generic Name Dose Route Start Last Admin Trade Name Freq PRN Reason Stop Dose Admin Acetaminophen 650 mg 04/23/23 00:18 04/27/23 06:22 Acetaminophen Tab 325 Mg Tab PO 650 mg Q6HR PRN Administration Fever and/ or Pain Albuterol/Ipratropium 3 ml 04/23/23 00:16 Ipratropium-Albuterol 3 Ml Neb INHALATION RT-QID PRN Shortness Of Breath Or Wheezing Allopurinol 300 mg 04/24/23 09:00 04/27/23 09:01 Allopurinol 300 Mg Tab PO 300 mg DAILY MARIO Administration Ascorbic Acid 1,000 mg 04/23/23 10:00 04/27/23 09:01 Ascorbic Acid 500 Mg Tab PO 1,000 mg DAILY MARIO Administration Aspirin 81 mg 04/23/23 10:00 04/27/23 11:23 Aspirin 81 Mg PO Not Given DAILY MARIO Atenolol 50 mg 04/23/23 10:00 04/27/23 09:01 Atenolol 50 Mg Tab PO 50 mg DAILY MARIO Administration Cholecalciferol 50 mcg 04/23/23 10:00 04/27/23 09:01 Cholecalciferol 25 Mcg (1000 Iu) Tablet PO 50 mcg DAILY MARIO Administration Colesevelam HCl 625 mg 04/23/23 17:30 04/26/23 18:04 Colesevelam 625 Mg Tab PO 625 mg AC-SUPPER MARIO Administration Furosemide 20 mg 04/24/23 16:00 04/27/23 09:01 Furosemide 20 Mg Tab PO 20 mg BID@0900,1600 MARIO Administration Guaifenesin 200 mg 04/23/23 22:07 04/27/23 00:01 Guaifenesin Syrup 100mg/5ml 200 Mg/10 Ml Cup PO 200 mg Q6HR PRN Administration Cough Heparin Sodium (Porcine) 5,000 unit 04/23/23 21:00 04/27/23 11:23 Heparin Sodium,Porcine 5,000 Unit/Ml 1 Ml Vial SQ Not Given Q12HR [facility] Hydralazine HCl 10 mg 04/25/23 14:42 Hydralazine Hcl 20 Mg/Ml 1 Ml Vial IVP Q6HR PRN Blood Pressure - High Cefazolin Sodium 2 gm/ Sodium 50 mls @ 100 mls/hr 04/23/23 16:00 04/27/23 09:01 Chloride IVPB 100 mls/hr Q8HR MARIO Administration Protocol Insulin Aspart 0 unit 04/23/23 07:30 04/27/23 06:22 Insulin Aspart (Novolog) 100 Unit/Ml Vial SQ 2 unit ACHS MARIO Administration Protocol Losartan Potassium 50 mg 04/23/23 10:00 04/27/23 09:02 Losartan 50 Mg Tab PO 50 mg BID [facility] Administration Multivitamins 1 each 04/23/23 10:00 04/27/23 09:01 Multivitamins, Thera 1 Each Tab PO 1 each DAILY MARIO Administration Pantoprazole Sodium 40 mg 04/23/23 10:00 04/27/23 06:22 Pantoprazole 40 Mg Tablet PO 40 mg 0730 MARIO Administration Spironolactone 50 mg 04/24/23 10:00 04/27/23 09:01 Spironolactone 25 Mg Tab PO 50 mg DAILY MARIO Administration Intake and Output 04/26/23 04/27/23 04/27/23 22:59 06:59 14:59 Output Total 350 300 Balance -350 -300 Output: Urine 350 300 04/26/23 05:20 04/26/23 05:20
[2023-04-27 16:41] LABS: Appearance,BF Cloudy; Color,BF Yellow
[2023-04-27 16:42] LABS: Nucleated Cells, Body Fluid 1778 /uL; RBC, Body Fluid 1167 /uL
[2023-04-27 17:26] LABS: Glucose,Whole Blood 108 mg/dL (70-110)
[2023-04-27] MEDS: COLESEVELAM 625 MG TAB PO SCH (17:43)
--- NOTE | 2023-04-27 17:49 | P.PN ---
Subjective Progress Note Date: 04/27/23 Principal diagnosis: Reason for follow-up with Streptococcus bacteremia and concern for possible left knee septic arthritis Patient is a 67-year-old male with a past medical history significant for chronic alcoholism cirrhosis diabetes mellitus reflux in this patient who did have a left knee arthroplasty done by Dr. Bishop patient recently presented to [facility] about a week ago for evaluation of fever patient did have Streptococcus agalactiae bacteremia and the patient was noticed to have some swelling to the left knee s/p aspirate with a white count of 20,000 concerning for septic need for the patient was transferred to [facility] to be evaluated by his orthopedic surgeon. On today's evaluation that is 04/27/2023, the patient denies any fever or any chills, the patient is breathing comfortably on room air, patient denies having any chest pain shortness of breath or cough, the patient denies nausea vomiting no abdominal pain, the patient pain and swelling to the left knee has decreased in intensity mention back pain better to Patient did have white count 6.3, creatinine 0.4 7 as of 11/25/2023 blood culture this admission has been negative.Patient did have an MRI of the lumbar spine suspicious for epidural abscess from T12-L2 and possible discitis L1-L2 Objective - Vital Signs Vital signs: Vital Signs Temp 98.8 F 04/27/23 07:21 Pulse 87 04/27/23 07:21 Resp 19 04/27/23 07:21 BP 169/79 04/27/23 07:21 Pulse Ox 97 04/27/23 07:21 FiO2 Intake & Output 04/26/23 04/27/23 04/27/23 18:59 06:59 18:59 Output Total 350 300 Balance -350 -300 Output: Urine 350 300 - Exam GENERAL DESCRIPTION: An elderly male lying in bed in no distress RESPIRATORY SYSTEM: Unlabored breathing , decreased breath sounds at bases HEART: S1 S2 regular rate and rhythm , ABDOMEN: Soft , no tenderness EXTREMITIES: Left knee incision is intact did have some swelling And warmth - Labs CBC & Chem 7: 04/26/23 05:20 04/26/23 05:20 Labs: Abnormal Lab Results - Last 24 Hours (Table) 04/26/23 04/26/23 04/26/23 Range/Units 11:16 17:51 22:26 POC Glucose (mg/dL) 127 H 127 H 138 H (70-110) mg/dL 04/27/23 Range/Units 05:36 POC Glucose (mg/dL) 175 H (70-110) mg/dL Microbiology - Last 24 Hours (Table) 04/23/23 16:36 Gram Stain - Preliminary Ascites Fluid Body Fluid Culture - Preliminary 04/24/23 06:47 Blood Culture - Preliminary Blood Assessment and Plan (1) Allergy to sulfa drugs Current Visit: Yes Status: Acute Code(s): Z88.2 - ALLERGY STATUS TO SULFONAMIDES SNOMED Code(s): 65998170 (2) Bacteremia due to Streptococcus Current Visit: Yes Status: Acute Code(s): R78.81 - BACTEREMIA; B95.5 - UNSP STREPTOCOCCUS THE CAUSE OF DISEASES [facility] SNOMED Code(s): 580426648974 (3) Septic arthritis of knee, left Current Visit: Yes Status: Acute Code(s): M00.9 - PYOGENIC ARTHRITIS, UNSPECIFIED SNOMED Code(s): 485529534 Plan: 1patient presented to hospital with weakness fever did have Streptococcus agalactiae bacteremia in this patient who did have a significant swelling to the left knee along with the stiffness with aspiration of the left knee cell count more than 20,000 white cell high clinical suspicious for septic arthritis likely related to streptococci 2- -blood cultures has been repeated and so far negative 3patient was complaining of some back pain and, patient did have an MRI of the lumbar spine suspicious for epidural abscess from T12-L2 and possible discitis L1-L2, spine surgery has been consulted planning for surgery this 4-patient will continue with cefazolin 2 g every 8 hours, at the bedside multiple question concern answered Dictation was produced using [employer] dictation software. please excuse any grammatical, word or spelling errors. Time with Patient: Greater than 30
[2023-04-27] MEDS: hydrALAZINE HCL 20 MG/ML 1 ML VIAL IVP PRN (18:23)
[2023-04-27 20:47] LABS: Glucose,Whole Blood 114 mg/dL (70-110)
[2023-04-27] MEDS: traMADol 50 MG TAB PO PRN (21:30)
[2023-04-28] MEDS: ACETAMINOPHEN TAB 325 MG TAB PO PRN ×2 (01:04→06:31)
[2023-04-28 05:25] LABS: Synovial Fld Crystals None Seen (None Seen)
[2023-04-28 06:09] LABS: Glucose,Whole Blood 109 mg/dL (70-110)
[2023-04-28] MEDS: PANTOPRAZOLE 40 MG TABLET PO SCH (06:31)
[2023-04-28] MEDS: INSULIN ASPART (NovoLOG) 100 UNIT/ML VIAL SQ SCH ×4 (06:36→21:02)
[2023-04-28] MEDS: HEPARIN SODIUM,PORCINE 5,000 UNIT/ML 1 ML VIAL SQ SCH (08:23)
[2023-04-28] MEDS: SPIRONOLACTONE 25 MG TAB PO SCH (08:24)
[2023-04-28] MEDS: ASPIRIN 81 MG PO SCH (08:24)
[2023-04-28] MEDS: LOSARTAN 50 MG TAB PO SCH ×2 (08:24→21:01)
[2023-04-28] MEDS: MULTIVITAMINS, THERA 1 EACH TAB PO SCH (08:24)
[2023-04-28] MEDS: atenoloL 50 MG TAB PO SCH (08:24)
[2023-04-28] MEDS: CHOLECALCIFEROL 25 MCG (1000 IU) TABLET PO SCH (08:24)
[2023-04-28] MEDS: ASCORBIC ACID 500 MG TAB PO SCH (08:24)
[2023-04-28] MEDS: FUROSEMIDE 20 MG TAB PO SCH ×2 (08:25→16:05)
[2023-04-28] MEDS: allopurinoL 300 MG TAB PO SCH (08:25)
--- NOTE | 2023-04-28 08:31 | P.PN ---
Subjective Progress Note Date: 04/28/23 Principal diagnosis: suspected L knee prosthetic infection, tx from [facility] epidural abscess Patient seen and examined this morning. Patient is resting comfortably in bed. He does report that his pain is managed on current regimen. Left knee presents with notable edema. Patient states that he has been ambulatory within room and hallways without difficulty. Patient is verbalizes he is aware of his surgery scheduled for tomorrow T11-L3 decompression and fusion with epidural abscess evacuation. All questions have been answered at this time. Informed patient that he will see Dr. Narayanan in preop prior to procedure. Patient denies any acute concerns. Informed patient that he will be nothing by mouth at midnight. Prescription for rolling walker and TLSO brace has been placed in chart. Objective - Vital Signs Vital signs: Vital Signs Temp 98.9 F 04/28/23 02:33 Pulse 95 04/28/23 01:00 Resp 17 04/28/23 01:00 BP 128/93 04/28/23 01:00 Pulse Ox 98 04/27/23 21:17 FiO2 Intake & Output 04/27/23 04/28/23 04/28/23 18:59 06:59 18:59 Intake Total 530 Balance 530 Intake: Intake, IV Titration 50 Amount ceFAZolin 2 gm In Sodium 50 Chloride 0.9% 50 ml @ 100 mls/hr IVPB Q8HR [facility] Rx# :[id number] Oral 480 Other: # Voids 1 - Exam Physical Examination General: The patient is awake and alert, in no acute distress Skin: Skin is warm and dry with no obvious rashes or lesions. Notable edema to left knee. Eye: Pupils are equal, round and reactive to light, extra-ocular movements are intact; there is normal conjunctiva bilaterally. Neck: The neck is supple, there is no tenderness and ROM intact. Cardiovascular: There is a regular rate and rhythm. No murmur, rub or gallop is appreciated. Respiratory: Lungs are clear to auscultation, respirations are non-labored, breath sounds are equal. Gastrointestinal: Soft, non-distended, non-tender abdomen. Back: There is no tenderness to palpation in the midline, paralumbar, parathoracic or buttocks region. There is no obvious deformity . Musculoskeletal: Muscle strength in all major muscle groups of bilateral upper extremities 5/5, bilateral lower extremities 5/5. Neurological: CN 2-12 intact. There are no obvious motor or sensory deficits. Movement and coordination equal and intact. Sensory exam to light touch intact C5-T1 and intact from L2-S1. Reflexes 2/4 in bilateral upper and lower extremities. Negative Hoffmans, babinski, and clonus signs. Psychiatric: Cooperative, appropriate mood & affect, normal judgment. - Labs CBC & Chem 7: 04/26/23 05:20 04/26/23 05:20 Labs: Abnormal Lab Results - Last 24 Hours (Table) 04/27/23 04/27/23 Range/Units 10:47 20:45 POC Glucose (mg/dL) 120 H 114 H (70-110) mg/dL Microbiology - Last 24 Hours (Table) 04/27/23 14:12 Gram Stain - Preliminary Knee - Left 04/23/23 16:36 Gram Stain - Final Ascites Fluid Body Fluid Culture - Final 04/24/23 06:47 Blood Culture - Preliminary Blood Assessment and Plan Assessment: Left knee effusion Possible left knee periprosthetic infection Bacteremia Low back pain Epidural abscess thoracic/lumbar spine Cirrhosis Multiple medical comorbidities Plan: -Appreciate supervisor home energy consultant and team management. -Activity: Ambulate QID, OOB all meals, up and about, limit lifting bending twisting to less than 5 lbs. Use walker or cane if needed for stability. -Daily PT/OT, increase ambulation strength and balance. -Prescription for TLSO brace and rolling walker placed in chart -Pain control: Adequate at this time -Meds: reviewed -DVT PPX: Mechanical, heparin -Encourage IS 10x/hr -Dispo: Clinically pending *I reviewed and discussed this case with my attending Dr. Narayanan, whom has reviewed this chart and films and is in agreement with assessment and plan of care as outlined above. I have personally seen and examined the patient, performed the documentation and the assessment and plan as written. Number of minutes spent on the visit: 20m.
[2023-04-28] MEDS: traMADol 50 MG TAB PO PRN (10:55)
[2023-04-28 11:01] LABS: Glucose,Whole Blood 176 mg/dL (70-110)
--- NOTE | 2023-04-28 13:50 | P.PN ---
Subjective Progress Note Date: 04/28/23 This is a 67-year-old male patient of Dr. Loli Campbell, patient has medical history of abdominal ascites and liver cirrhosis, chronic alcoholism, diabetes mellitus, hemorrhoids, gastroesophageal reflux disease. Patient follows with dr rocco turcios underwent upper and lower endoscopy in January of 2023 has history of esophageal varices which underwent banding in Jan as well. Has a history of left lower extremity total knee arthroplasty done a year ago, initially presented to [facility] with left lower extremity edema with concern for infected prosthetic of the left knee. He presented to [facility] with fevers progressive weakness and back pain. States fever was as high as 104. He was also anemic hemoglobin 6.5 requiring 2 unit of PRBC. Patient was found to have strep agalactaie bacteremia with features of sepsis over at [facility]. He was treated with IV ceftriaxone 2 grams. Patient also with recent influenza infection and hypoxia at [facility]. He had a venous doppler of the left leg at [facility] negative for acute DVT. He underwent arthrocentesis of the left knee joint effusion showing 20,000 WBCs and suspicious for infected prosthesis was recommended to transfer to [facility] for further evaluation by Dr Bishop. Yesterday before transfer he underwent work up for abdominal ascites which he has undergo paracentesis in the past, he had an abdominal ultrasound showing significant amount of intraabdominal ascites. IR consulted. He is admitted to this hospital with consults placed to [place] and infectious disease. 04/24/2023 Patient evaluated today sitting up in bed. He was seen in consultation by ID who has changed antibiotics to IV cefazolin from ceftriaxone with plans to repeat blood culture. Underwent paracentesis 1.5 L off. Sodium 135, potassium 3.3, BUN 8, creatinine 0.50, magnesium 1.8, CRP 6.2. Orthopedics not recommending any surgical intervention at this time. 04/25/2023 Patient is evaluated today resting in bed. pts is at the bedside and plan of care was discussed thoroughly. Patient remains on IV Cefazolin with repeat blood cultures pending and negative so far. Infectious disease is following this case. He is status post paracentesis. Again orthopedics not recommending any surgical intervention for the right knee septic arthritis. 04/26/2023 Patient is still complaining from left knee swelling, patient states is better, pain controlled no erythema. Orthopedic surgery planning for surgery for infected prosthesis onto stages first one on 04/29 MRI of the lumbar spine is ordered to rule out infection Cardiology team preoperative evaluation is ordered Patient remains on IV cefazolin Repeat blood culture/6 still show no growth ID team on the case 04/27/2023 Patient with minimal back pain and his left knee with no significant pain is still warm and swollen with no redness. Initially orthopedic team are planning for surgical debridement of his left knee. However MRI of the lumbar spine showing epidural abscess of the distal thoracic and irrigated proximal lumbar vertebrae. Orthopedic team still on the case with follow the patient and needs surgery was held and replaced to do lumbar surgery with ( T11-L3 decompression and fusion along with epidural abscess/phlegmon evacuation for 04/29/2023.) Preoperative cardiac evaluation is requested Chest pain or dyspnea No change in urine or bowel habits. No fever. Monitor blood pressure Continue with cefazolin 04/28. Patient seen and examined. Still has left knee pain. REVIEW OF SYSTEMS: CONSTITUTIONAL: No fever, no malaise,. CARDIOVASCULAR: No chest pain, no palpitations, no syncope. PULMONARY: No shortness of breath, no cough, GASTROINTESTINAL: No diarrhea, no nausea, no vomiting, no abdominal pain. NEUROLOGICAL: No headaches, no weakness, PHYSICAL EXAMINATION: GENERAL: The patient is alert and oriented x3, not in any acute distress. Well developed, well nourished. HEENT: Pupils are round and equally reacting to light. EOMI. No scleral icterus. No conjunctival pallor. Normocephalic, atraumatic. No pharyngeal erythema. No t hyromegaly. CARDIOVASCULAR: S1 and S2 present. No murmurs, rubs, or gallops. PULMONARY: Chest is clear to auscultation, no wheezing or crackles. ABDOMEN: Soft, nontender, nondistended, normoactive bowel sounds. No palpable organomegaly. MUSCULOSKELETAL: No joint swelling or deformity. Left knee tender EXTREMITIES: No cyanosis, clubbing, or pedal edema. NEUROLOGICAL: Gross neurological examination did not reveal any focal deficits. SKIN: No rashes. Assessment and plan -Strep Algalactaie bacteremia Left knee septic joint Epidural abscess Monitor vital signs Monitor CBC Monitor CMP Continue IV cefazolin Orthopedic spine team are planning for T11-L3 decompression and fusion along with epidural abscess/phlegmon evacuation for 04/29/2023. ID following -History of esophageal varices with banding in january -Hypokalemia monitor BMP -Hx of cirrhosis, abdominal ascites ultrasound showing significant ascites s/p paracentesis with 1.5 L off and patient has been started on aldactone and lasix BID. -Hx of GERD -Diabetes Mellitus type 2 hgb A1C 6.9 continue on accuchecks achs and sliding scale insulin. -History of left TKA -Hypertension continues on losartan BID and atenolol. -Hemorrhoids -Chronic alcohol use monitor for alcohol withdrawal Hx of gout continue on allopurinol, Labs and medication were reviewed.. Continue same treatment. Continue with symptomatic treatment. Resume home medication. Monitor labs and vitals. DVT and GI prophylaxis. Further recommendations as per clinical course of the patient Dictation was produced using [employer] dictation software. please excuse any grammatical, word or spelling errors. Objective - Vital Signs Vital signs: Vital Signs Temp 98.0 F 04/28/23 07:56 Pulse 65 04/28/23 07:56 Resp 20 04/28/23 07:56 BP 136/63 04/28/23 07:56 Pulse Ox 95 04/28/23 07:56 FiO2 Intake & Output 04/27/23 04/28/23 04/28/23 18:59 06:59 18:59 Intake Total 530 Output Total 600 Balance 530 -600 Intake: Intake, IV Titration 50 Amount ceFAZolin 2 gm In Sodium 50 Chloride 0.9% 50 ml @ 100 mls/hr IVPB Q8HR [facility] Rx# :[id number] Oral 480 Output: Urine 600 Other: # Voids 1 - Labs CBC & Chem 7: 04/26/23 05:20 04/26/23 05:20 Labs: Abnormal Lab Results - Last 24 Hours (Table) 04/27/23 04/28/23 Range/Units 20:45 11:00 POC Glucose (mg/dL) 114 H 176 H (70-110) mg/dL Microbiology - Last 24 Hours (Table) 04/27/23 14:12 Gram Stain - Preliminary Knee - Left 04/23/23 16:36 Gram Stain - Final Ascites Fluid Body Fluid Culture - Final 04/24/23 06:47 Blood Culture - Preliminary Blood
--- NOTE | 2023-04-28 14:44 | P.PN ---
Subjective Progress Note Date: 04/28/23 Reason for Consult (text): cardiac clearance History of present illness: History of present illness: This is a 67-year-old male patient previously seen by Dr. Vargas with past medical history of hypertension, dyslipidemia, family history of premature coronary artery disease, cirrhosis of the liver with esophageal varices. We have been asked to evaluate the patient for cardiac clearance. Patient has history that he was at [facility] initially on 04/10 was in the emergency center tested negative for Covid and was sent home. He had presented with fever and chills. About a week later patient was unable to stand up and he went back to [facility]. He was placed on pain medications and muscle relaxers. He states that eventually he was not able to stand her weight and he had the knee drained where he had previously had arthroplasty. Patient was treated for Streptococcus agalactia bacteremia and found that left knee had septic arthritis. Patient was transferred to [facility] to be evaluated by orthopedics. Patient also found to have epidural abscess. He is tentatively scheduled for surgery on for T11-L3 decompression fusion and epidural abscess evacuation and left knee surgery will be done at a later time. Patient has undergone paracentesis on 04/26 with removal of 1360, rales. Blood cultures at [facility] are showing no growth at 48 hours. He also had echocardiogram done at [facility] which revealed EF of 55-60%, mild mitral regurgitation, moderate tricuspid regurgitation. WBC 6.3, hemoglobin 9.5, platelet count 223. Sodium 137, potassium 3.6, BUN 5 creatinine 0.47. Home cardiac medications: Aspirin 81 mg daily, atenolol 50 mg daily, losartan 50 mg twice daily. Lexiscan Cardiolite stress test performed in the office on 03/25/2021 was negative with normal myocardial perfusion and function. 04/28 Patient is seen today in follow-up. He is scheduled for surgery tomorrow. No new concerns from the patient. Blood pressure 136/63, heart rate in the 60s to 90s, afebrile, pulse ox 95% on room air. Physical examination: Gen: This is a 67 year old male. He is resting in a chair and appears to be in no acute distress. VS: reviewed HEENT: Head is atraumatic, normocephalic. Pupils equal, round. Sclerae is anicteric. NECK: Supple. No JVD. LUNGS: Clear to auscultation. No wheezes or rhonchi. No intercostal retractions. HEART: Regular rate and rhythm. No murmur. ABDOMEN: Soft No tenderness. EXTREMITIES: No pedal edema. No calf tenderness. NEUROLOGICAL: Patient is awake, alert and oriented x3. Assessment: Epidural abscess Left knee septic arthroplasty Streptococcus bacteremia Hypertension Dyslipidemia Cirrhosis of the liver Plan: Continue patient's home cardiac medications Patient is at acceptable risk for surgical and anesthesia complications. He is known to have a normal LV function and had a normal stress test performed 2 years ago. Further recommendations to follow based upon clinical course Thank you kindly for this consultation. Nurse practitioner note has been reviewed, I agree with documented findings and plan of care. Patient was seen and examined. Objective - Vital Signs Vital signs: Vital Signs Temp 98.0 F 04/28/23 07:56 Pulse 65 04/28/23 07:56 Resp 20 04/28/23 07:56 BP 136/63 04/28/23 07:56 Pulse Ox 95 04/28/23 07:56 FiO2 Intake & Output 04/27/23 04/28/23 04/28/23 18:59 06:59 18:59 Intake Total 530 Balance 530 Intake: Intake, IV Titration 50 Amount ceFAZolin 2 gm In Sodium 50 Chloride 0.9% 50 ml @ 100 mls/hr IVPB Q8HR [facility] Rx# :[id number] Oral 480 Other: # Voids 1 - Labs CBC & Chem 7: 04/26/23 05:20 04/26/23 05:20 Labs: Abnormal Lab Results - Last 24 Hours (Table) 04/27/23 04/27/23 Range/Units 10:47 20:45 POC Glucose (mg/dL) 120 H 114 H (70-110) mg/dL Microbiology - Last 24 Hours (Table) 04/27/23 14:12 Gram Stain - Preliminary Knee - Left 04/23/23 16:36 Gram Stain - Final Ascites Fluid Body Fluid Culture - Final 04/24/23 06:47 Blood Culture - Preliminary Blood
[2023-04-28 15:20] LABS: ALT 13 U/L (10-49); AST 40 U/L (14-35); Albumin/Globulin Ratio 0.86 Ratio (1.60-3.17); Alkaline Phosphatase 196 U/L (41-126); BUN/Creat Ratio 8.86 Ratio (12.00-20.00); Blood Urea Nitrogen 6.2 mg/dL (9.0-27.0); Calcium 8.5 mg/dL (8.7-10.3); Carbon Dioxide 18.5 mmol/L (21.6-31.8); Chloride 108 mmol/L (96-109); Globulin 3.5 g/dL (1.6-3.3); Glucose 157 mg/dL (70-110); Potassium 3.4 mmol/L (3.5-5.5); Sodium 137 mmol/L (135-145); Total Bilirubin 0.8 mg/dL (0.3-1.2); Total Protein 6.5 g/dL (6.2-8.2)
[2023-04-28 15:45] LABS: Basophils # (A) 0.06 X 10*3/uL (0.00-0.10); Basophils % (A) 1.2 %; Eosinophils # (A) 0.15 X 10*3/uL (0.04-0.35); Eosinophils % (A) 2.9 %; HCT 31.1 % (39.6-50.0); HGB 9.6 g/dL (13.0-17.0); Lymphocytes # (A) 1.38 X 10*3/uL (0.90-5.00); Lymphocytes % (A) 26.7 %; MCH 26.2 pg (27.0-32.0); MCHC 30.9 g/dL (32.0-37.0); Mean Platelet Volume 10.1 FL (9.5-12.2); Monocytes # (A) 0.39 X 10*3/uL (0.20-1.00); Monocytes % (A) 7.6 %; NRBC Per 100 WBC 0 X 10*3/uL (0.00-0.01); Neutrophils # (A) 3.14 X 10*3/uL (1.80-7.70); Neutrophils % (A) 60.8 %; Platelet Count 197 X 10*3/uL (140-440); RBC 3.66 X 10*6/uL (4.40-5.60); RDW 19.9 % (11.5-14.5); WBC 5.16 X 10*3/uL (4.50-10.00)
[2023-04-28 16:42] LABS: Glucose,Whole Blood 139 mg/dL (70-110)
[2023-04-28] MEDS: COLESEVELAM 625 MG TAB PO SCH (17:01)
--- NOTE | 2023-04-28 17:55 | P.PN ---
Progress Note - Text Progress Note Date: 04/28/23 Spine Surgery Clinical and Risk Review Patient was seen and examined today Dion Kennedy is a 67-year-old male presenting for evaluation of fevers chills low back pain mid back pain and knee pain. It was my pleasure to have seen and examined Dion Kennedy. In our visit today we have had a chance to go over subjective complaints, physical examination findings and treatments including the natural course history without intervention and various interventional options. 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 Stenosis related to this large anterior epidural phlegmon present. Erosion of disc spaces noted. Unrelated L4 5 L5-S1 spon dylolisthesis grade 1 with bilateral foraminal and central stenosis related. On physical exam, Dion Kennedy demonstrates weakness in hip flexion bilaterally 3+. 5 out of 5 dorsiflexion plantar flexion bilaterally. 4 out of 5 knee flexion and extension bilaterally. Decreased sensation over the thighs and anterior shins. No clonus no Babinski's negative Diana's no long tract signs I have explained to the patient that as their condition progresses it will cause further neurological deficits and eventual paralysis. Based on the patients imaging, physical exam, and the rapid progression and disabling nature of their symptoms, at this time I recommend surgery in the form or a: T11 L3 decompression with epidural phlegmon evacuation and stabilization. I discussed the risk and benefits of this procedure at length with Dion Kennedy. The patient agreed to considered pursuing the procedure abovementioned. Prior to surgery, she should follow up with her PCP (Cardio, ID, IM etc) for clearance. Questions were invited and answered, and the patient wishes to proceed as outli terese below. Currently, I am recommendin. T11 to L3 decompression with epidural phlegmon evacuation and stabilization 2. Follow up with PCP for surgical clearance 3. Review of surgical risks and benefits as well as an educational packet on the proposed surgical procedure. Risks: All surgical procedures come with inherent risks, including those related to positioning, anesthesia, intraoperative findings, and postoperative complications. It is important to understand that surgery does not come with any guarantee of a successful outcome as complications and adverse events are always possible. The patient was given a handout in office today discussing the surgical procedu re and risks associated with the intervention, both of which were discussed with the patient. These risks include but are not limited to the following: * Experiencing same, different or even worse symptoms in back, neck, arms, or legs compared to before surgery. * Requiring further surgery or other forms of treatment presently or at some time in the future at same or other levels of the intended spine surgery. * On an extreme but fortunately relatively rare basis severe complication such as blindness, stroke, heart attack, temporary and/or permanent nerve injury, paralysis, coma, or may occur, sometimes without known explanation. * Surgical complications may include but are not limited to risk of infection, fluid accumulation in the surgical dissection site, including a seroma or hematoma, that requires additional surgery, wound drainage, bleeding, new numbness or weakness, vision changes/loss, spinal fluid leakage, non-healing and/or infected incision, headaches, difficulty or inability to swallow, hoarseness, hemopneumothorax, pneumothorax, impotence, retrograde ejaculation, vaginal dryness; injury to nerves, spinal cord, blood vessels, lymphatics or other vital organs (i.e., bowel injury, injury to the great vessels); heterotopic bone formation; complications related to the hardware such as screws, rods, cages including misplaced hardware, device failure, instrumentation at the wrong spine level, hardware fracture/breakage, or hardware loosening; vertebral failure of the spinal column above or below the newly placed hardware; retained surgical instrumentations or devices and the need for further surgery. * Medical risks of the planned spine surgery include but are not limited to generalized Infections to the whole body or local areas outside of the surgical site (sepsis), heart attack, bleeding, anaphylaxis, meningitis, seizure, epilepsy, hearing loss, burn case, laceration of the head or other areas of the body, bruising, hypersensitivity of the skin, bladder over distension; allergic reaction; shoulder injury related to positioning; fat, blood and air clots to other areas of the body like heart, lungs, brain; failure of internal organs such as lungs, kidneys, liver and excessive bleeding. If blood transfusions are necessary, note that transfusions may cause intolerance reactions such as anaphylaxis or other complex reactions. * Despite best efforts, the results of spine surgery might not heal in terms of bone, soft tissues such as skin, fascia, ligaments, and joints. Additionally, in order to achieve best possible results, spine surgery may be carried out beyond the initially planned levels and involve decompression, fusion including insertion of hardware at levels other than the original intended area of surgical interest change some portions of the procedure in order to ensure the best possible outcomes. * With spine surgery and spinal fusion, there are different off label uses of instrumentation (devices, implants and hardware) as well as biological substances (bone morphogenic proteins, demineralized bone matrix) as well as using extra bone from allograft sources (i.e. cadaver bone) or autograft (il iac crest bone, ribs, or the spine itself). The patient has been given information about these practices and their inherent risks and benefits. The patient has had a chance to review all the listed information, has been given print outs detailing this information, and has had all his/her questions answered to their satisfaction. It was my pleasure to have seen and examined Dion Kennedy. In our visit today we have had a chance to go over my understanding of our patient's current condition, the natural course history without intervention and various interventional options. Questions were invited and answered, and the patient wishes to proceed as outlined above. I have seen and examined the patient for 25 minutes and we have spent more than 50% of the time in repeat and detailed counseling about the patient's condition, its natural course history with out and as much as can be predicted with surgery and re-review of various surgical treatment options. In conclusion, Dion Kennedy requested we proceed with the above suggested surgery and are willing to accept risks and limitations of the suggested surgery as nature of the disease process and our best attempts at treatment for the condition. Thank you again for allowing us to be part of your patient's care. Please don't hesitate to contact me if you have any further questions. Signed and authenticated by: Guillaume Rucker [facility] [address] [address]
--- NOTE | 2023-04-28 18:58 | MR ---
EXAMINATION TYPE: MR cspine/tspine wo/w con DATE OF EXAM: 04/28/2023 COMPARISON: None HISTORY: Epidural abscess CONTRAST: Performed utilizing 8 mL intravenous Gadavist gadolinium contrast. TECHNIQUE: Multiplanar multiecho imaging on a 3.0 Patti magnet is performed through the cervical spin e. FINDINGS: The craniovertebral junction is normal. Vertebral body alignment is normal. C7-T1: No focal disc herniation or significant disc bulge is evident. No spinal canal stenosis or n eural foraminal stenosis is present. C6-7: Broad-based disc bulge has moderate anterior thecal sac flattening. No cord compression is evid ent. No spinal canal stenosis is present. Severe bilateral foraminal stenosis hasn't.. C5-6: Tiny central subligamentous disc herniation may be present. Moderate anterior thecal sac flatte dangelo is present. No cord contact or cord deformity is evident. Moderate bilateral foraminal stenosis is present.. 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 No focal disc herniation or significant disc b ulge is evident. No spinal canal stenosis or neural foraminal stenosis is present. C3-4: No focal disc herniation or significant disc bulge is evident. No spinal canal stenosis present . Severe right and moderate to severe left foraminal stenosis is present. C2-3: No focal disc herniation or significant disc bulge is evident. No spinal canal stenosis or thomas ral foraminal stenosis is present. No abnormal enhancement. IMPRESSION: 1. No suspicious epidural abscess within the cervical spinal canal. 2. 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 3. Large broad disc herniation C6-7 with moderate anterior thecal sac compression. 4. Foraminal stenosis lower cervical spine discussed above. 5. No spinal canal stenosis or focal disc herniations. EXAMINATION TYPE: MR cspine/tspine wo/w con DATE OF EXAM: 04/28/2023 COMPARISON: None HISTORY: Epidural abscess CONTRAST: Performed utilizing 8 mL intravenous Gadavist gadolinium contrast. TECHNIQUE: Multiplanar, multiecho imaging on a 3.0 Patti magnet is performed through the thoracic spi ne. Spinal cord maintains normal signal through its visualized course. Vertebral body alignment is normal. Vertebral body heights are preserved. Disc heights are preserved. Disc hydration levels are preserved. Patient suspected epidural abscess is again evident. On the current exam this appears to begin at tonya roximately T11 in the left paracentral region with moderate anterior thecal sac compression no cord c ontact is evident. This extends inferiorly into the lumbar spine region. Please see previous MRI lumb ar spine report. IMPRESSION: 1. Small amount of the patient's epidural abscess appears to be extending to approximately the T11 ve rtebral level within the [id number] from the lumbar spine levels. No cord contact or spinal canal stenosis is present. Moderate thecal sac compression is evident. 2. Suspicious changes within disc spaces or spinal canal is not evident within the thoracic spine.
[2023-04-28] MEDS: guaiFENesin SYRUP 100MG/5ML 200 MG/10 ML CUP PO PRN (21:01)
[2023-04-28 21:18] LABS: Glucose,Whole Blood 132 mg/dL (70-110)
[2023-04-29 05:54] LABS: Glucose,Whole Blood 115 mg/dL (70-110)
[2023-04-29] MEDS: INSULIN ASPART (NovoLOG) 100 UNIT/ML VIAL SQ SCH ×4 (06:01→22:16)
[2023-04-29] MEDS: PANTOPRAZOLE 40 MG TABLET PO SCH (06:24)
[2023-04-29] MEDS: ACETAMINOPHEN TAB 325 MG TAB PO PRN (07:50)
[2023-04-29] MEDS: LOSARTAN 50 MG TAB PO SCH ×2 (07:50→22:12)
[2023-04-29] MEDS: allopurinoL 300 MG TAB PO SCH (07:50)
[2023-04-29] MEDS: ASCORBIC ACID 500 MG TAB PO SCH (07:50)
[2023-04-29] MEDS: MULTIVITAMINS, THERA 1 EACH TAB PO SCH (07:51)
[2023-04-29] MEDS: ASPIRIN 81 MG PO SCH (07:51)
[2023-04-29] MEDS: SPIRONOLACTONE 25 MG TAB PO SCH (07:51)
[2023-04-29] MEDS: FUROSEMIDE 20 MG TAB PO SCH ×2 (07:51→22:11)
[2023-04-29] MEDS: CHOLECALCIFEROL 25 MCG (1000 IU) TABLET PO SCH (07:51)
[2023-04-29] MEDS: atenoloL 50 MG TAB PO SCH (07:51)
--- NOTE | 2023-04-29 08:21 | P.PN ---
Progress Note - Text Progress Note Date: 04/29/23 Patient seen this morning at bedside. Patient is resting comfortably in bed. He states he has remained nothing by mouth since midnight. Patient is looking forward to surgical procedure today and to begin his recovery process. Patient denies any questions or concerns at this time. No acute concerns.
[2023-04-29 09:06] LABS: Blood Urea Nitrogen 6.1 mg/dL (9.0-27.0); Chloride 107 mmol/L (96-109); Glucose 105 mg/dL (70-110); Potassium 3.7 mmol/L (3.5-5.5); Sodium 137 mmol/L (135-145)
[2023-04-29 09:07] LABS: ALT 12 U/L (10-49); AST 35 U/L (14-35); Albumin 2.8 g/dL (3.8-4.9); Albumin/Globulin Ratio 0.88 Ratio (1.60-3.17); Alkaline Phosphatase 189 U/L (41-126); Calcium 8.4 mg/dL (8.7-10.3); Carbon Dioxide 20.8 mmol/L (21.6-31.8); Globulin 3.2 g/dL (1.6-3.3); Total Bilirubin 0.7 mg/dL (0.3-1.2)
[2023-04-29 09:24] LABS: Basophils # (A) 0.05 X 10*3/uL (0.00-0.10); Basophils % (A) 1.1 %; Eosinophils # (A) 0.15 X 10*3/uL (0.04-0.35); Eosinophils % (A) 3.3 %; HCT 27.4 % (39.6-50.0); HGB 8.4 g/dL (13.0-17.0); Lymphocytes # (A) 1.09 X 10*3/uL (0.90-5.00); MCH 25.8 pg (27.0-32.0); MCHC 30.7 g/dL (32.0-37.0); Monocytes # (A) 0.48 X 10*3/uL (0.20-1.00); Monocytes % (A) 10.6 %; NRBC Per 100 WBC 0 X 10*3/uL (0.00-0.01); Neutrophils # (A) 2.73 X 10*3/uL (1.80-7.70); Neutrophils % (A) 60.1 %; Platelet Count 172 X 10*3/uL (140-440); RBC 3.26 X 10*6/uL (4.40-5.60); RDW 20.1 % (11.5-14.5); WBC 4.54 X 10*3/uL (4.50-10.00)
[2023-04-29 11:13] LABS: Glucose,Whole Blood 119 mg/dL (70-110)
--- NOTE | 2023-04-29 12:22 | P.PN ---
Subjective Progress Note Date: 04/29/23 Reason for Consult (text): cardiac clearance History of present illness: History of present illness: This is a 67-year-old male patient previously seen by Dr. Vargas with past medical history of hypertension, dyslipidemia, family history of premature coronary artery disease, cirrhosis of the liver with esophageal varices. We have been asked to evaluate the patient for cardiac clearance. Patient has history that he was at [facility] initially on 04/10 was in the emergency center tested negative for Covid and was sent home. He had presented with fever and chills. About a week later patient was unable to stand up and he went back to [facility]. He was placed on pain medications and muscle relaxers. He states that eventually he was not able to stand her weight and he had the knee drained where he had previously had arthroplasty. Patient was treated for Streptococcus agalactia bacteremia and found that left knee had septic arthritis. Patient was transferred to [facility] to be evaluated by orthopedics. Patient also found to have epidural abscess. He is tentatively scheduled for surgery on for T11-L3 decompression fusion and epidural abscess evacuation and left knee surgery will be done at a later time. Patient has undergone paracentesis on 04/26 with removal of 1360, rales. Blood cultures at [facility] are showing no growth at 48 hours. He also had echocardiogram done at [facility] which revealed EF of 55-60%, mild mitral regurgitation, moderate tricuspid regurgitation. WBC 6.3, hemoglobin 9.5, platelet count 223. Sodium 137, potassium 3.6, BUN 5 creatinine 0.47. Home cardiac medications: Aspirin 81 mg daily, atenolol 50 mg daily, losartan 50 mg twice daily. Lexiscan Cardiolite stress test performed in the office on 03/25/2021 was negative with normal myocardial perfusion and function. 04/28 Patient is seen today in follow-up. He is scheduled for surgery tomorrow. No new concerns from the patient. Blood pressure 136/63, heart rate in the 60s to 90s, afebrile, pulse ox 95% on room air. 04/29 Patient is scheduled for transfusion of 2 units of packed RBCs today for hemoglobin of 8.4. He is still scheduled for surgical intervention today with orthopedic spine. Blood pressure is currently 142/76, heart rate 83, pulse ox 96% on room air, afebrile. No plan and medication changes today. Physical examination: Gen: This is a 67 year old male. He is resting in a chair and appears to be in no acute distress. VS: reviewed HEENT: Head is atraumatic, normocephalic. Pupils equal, round. Sclerae is anicteric. LUNGS: Clear to auscultation. No wheezes or rhonchi. No intercostal retractions. HEART: Regular rate and rhythm. No murmur. EXTREMITIES: No pedal edema. No calf tenderness. NEUROLOGICAL: Patient is awake, alert and oriented x3. Assessment: Epidural abscess Left knee septic arthroplasty Streptococcus bacteremia Hypertension Dyslipidemia Cirrhosis of the liver Plan: Continue patient's home cardiac medications Patient is at acceptable risk for surgical and anesthesia complications. He is known to have a normal LV function and had a normal stress test performed 2 years ago. Further recommendations to follow based upon clinical course Nurse practitioner note has been reviewed, I agree with documented findings and plan of care. Patient was seen and examined. Objective - Vital Signs Vital signs: Vital Signs Temp 97.6 F 04/29/23 11:56 Pulse 87 04/29/23 11:56 Resp 18 04/29/23 11:56 BP 142/76 04/29/23 11:56 Pulse Ox 95 04/29/23 11:56 FiO2 Intake & Output 04/28/23 04/29/23 04/29/23 18:59 06:59 18:59 Intake Total 1060 50 Output Total 1425 475 325 Balance -186 -897 -757 Intake: Intake, IV Titration 100 50 Amount ceFAZolin 2 gm In Sodium 100 50 Chloride 0.9% 50 ml @ 100 mls/hr IVPB Q8HR [facility] Rx# :[id number] Oral 960 Blood Product 0 Rc As-1 Unit 0 [id number] Output: Urine 1425 475 325 Other: Voiding Method Toilet Urinal - Labs CBC & Chem 7: 04/29/23 06:07 04/29/23 06:07 Labs: Abnormal Lab Results - Last 24 Hours (Table) 04/28/23 04/28/23 04/28/23 Range/Units 08:46 08:46 14:50 RBC 3.66 L (4.40-5.60) X 10*6/uL Hgb 9.6 L (13.0-17.0) g/dL Hct 31.1 L (39.6-50.0) % MCH 26.2 L (27.0-32.0) pg MCHC 30.9 L (32.0-37.0) g/dL RDW 19.9 H (11.5-14.5) % Potassium 3.4 L (3.5-5.5) mmol/L Carbon Dioxide 18.5 L (21.6-31.8) mmol/L BUN 6.2 L (9.0-27.0) mg/dL Creatinine (0.6-1.5) mg/dL BUN/Creatinine Ratio 8.86 L (12.00-20.00) Ratio Glucose 157 H (70-110) mg/dL POC Glucose (mg/dL) (70-110) mg/dL Calcium 8.5 L (8.7-10.3) mg/dL AST 40 H (14-35) U/L Alkaline Phosphatase 196 H (41-126) U/L Total Protein (6.2-8.2) g/dL Albumin 3.0 L (3.8-4.9) g/dL Globulin 3.5 H (1.6-3.3) g/dL Albumin/Globulin Ratio 0.86 L (1.60-3.17) Ratio Crossmatch See Detail 04/28/23 04/28/23 04/29/23 Range/Units 16:41 21:16 05:52 RBC (4.40-5.60) X 10*6/uL Hgb (13.0-17.0) g/dL Hct (39.6-50.0) % MCH (27.0-32.0) pg MCHC (32.0-37.0) g/dL RDW (11.5-14.5) % Potassium (3.5-5.5) mmol/L Carbon Dioxide (21.6-31.8) mmol/L BUN (9.0-27.0) mg/dL Creatinine (0.6-1.5) mg/dL BUN/Creatinine Ratio (12.00-20.00) Ratio Glucose (70-110) mg/dL POC Glucose (mg/dL) 139 H 132 H 115 H (70-110) mg/dL Calcium (8.7-10.3) mg/dL AST (14-35) U/L Alkaline Phosphatase (41-126) U/L Total Protein (6.2-8.2) g/dL Albumin (3.8-4.9) g/dL Globulin (1.6-3.3) g/dL Albumin/Globulin Ratio (1.60-3.17) Ratio Crossmatch 04/29/23 04/29/23 04/29/23 Range/Units 06:07 06:07 11:11 RBC 3.26 L (4.40-5.60) X 10*6/uL Hgb 8.4 L (13.0-17.0) g/dL Hct 27.4 L (39.6-50.0) % MCH 25.8 L (27.0-32.0) pg MCHC 30.7 L (32.0-37.0) g/dL RDW 20.1 H (11.5-14.5) % Potassium (3.5-5.5) mmol/L Carbon Dioxide 20.8 L (21.6-31.8) mmol/L BUN 6.1 L (9.0-27.0) mg/dL Creatinine 0.5 L (0.6-1.5) mg/dL BUN/Creatinine Ratio (12.00-20.00) Ratio Glucose (70-110) mg/dL POC Glucose (mg/dL) 119 H (70-110) mg/dL Calcium 8.4 L (8.7-10.3) mg/dL AST (14-35) U/L Alkaline Phosphatase 189 H (41-126) U/L Total Protein 6.0 L (6.2-8.2) g/dL Albumin 2.8 L (3.8-4.9) g/dL Globulin (1.6-3.3) g/dL Albumin/Globulin Ratio 0.88 L (1.60-3.17) Ratio Crossmatch Microbiology - Last 24 Hours (Table) 04/27/23 14:12 Gram Stain - Preliminary Knee - Left Body Fluid Culture - Preliminary
[2023-04-29 13:00] VITALS: BMI 26.1
[2023-04-29] MEDS ORDERED: SODIUM CHLORIDE 0.9% 500 ML 500 ML IV ONE (13:44)
[2023-04-29 14:11] LABS: Anisocytosis Slight; HCT 32.7 % (39.0-53.0); HGB 10.4 gm/dL (13.0-17.5); Hypochromasia Moderate; MCH 26.9 pg (25.0-35.0); MCHC 31.7 g/dL (31.0-37.0); MCV 84.8 fL (80.0-100.0); Mean Platelet Volume 7.7; Platelet Count 181 k/uL (150-450); RBC 3.85 m/uL (4.30-5.90); RDW 18.1 % (11.5-15.5); WBC 4.6 k/uL (3.8-10.6)
[2023-04-29 14:40] LABS: Glucose,Whole Blood 111 mg/dL (70-110)
--- NOTE | 2023-04-29 14:49 | P.PN ---
Subjective Progress Note Date: 04/28/23 Principal diagnosis: Reason for follow-up with Streptococcus bacteremia and concern for possible left knee septic arthritis Patient is a 67-year-old male with a past medical history significant for chronic alcoholism cirrhosis diabetes mellitus reflux in this patient who did have a left knee arthroplasty done by Dr. Bishop patient recently presented to [facility] about a week ago for evaluation of fever patient did have Streptococcus agalactiae bacteremia and the patient was noticed to have some swelling to the left knee s/p aspirate with a white count of 20,000 concerning for septic need for the patient was transferred to [facility] to be evaluated by his orthopedic surgeon. On today's evaluation that is 04/28/2023, the patient remains to be afebrile, the patient is breathing comfortably on room air, patient denies having any chest pain shortness of breath or cough, the patient denies nausea vomiting no abdominal pain, the patient pain and swelling to the left knee has decreased in intensity and denies any worsening back pain. Patient did have white count 4.54, creatinine is 0.5 blood culture this admission has been negative.Patient did have an MRI of the lumbar spine suspicious for epidural abscess from T12-L2 and possible discitis L1-L2 MRI cervical spine no epidural abscess MRI thoracic spine tissues extension of the a bscess to the T11 vertebra Objective - Vital Signs Vital signs: Vital Signs Temp 98.0 F 04/28/23 07:56 Pulse 65 04/28/23 07:56 Resp 20 04/28/23 07:56 BP 136/63 04/28/23 07:56 Pulse Ox 95 04/28/23 07:56 FiO2 Intake & Output 04/27/23 04/28/23 04/28/23 18:59 06:59 18:59 Intake Total 530 Output Total 600 Balance 530 -600 Intake: Intake, IV Titration 50 Amount ceFAZolin 2 gm In Sodium 50 Chloride 0.9% 50 ml @ 100 mls/hr IVPB Q8HR [facility] Rx# :[id number] Oral 480 Output: Urine 600 Other: # Voids 1 - Exam GENERAL DESCRIPTION: An elderly male lying in bed in no distress RESPIRATORY SYSTEM: Unlabored breathing , decreased breath sounds at bases HEART: S1 S2 regular rate and rhythm , ABDOMEN: Soft , no tenderness EXTREMITIES: Left knee incision is intact did have some swelling And warmth - Labs CBC & Chem 7: 04/29/23 13:45 04/29/23 06:07 Labs: Abnormal Lab Results - Last 24 Hours (Table) 04/27/23 04/28/23 Range/Units 20:45 11:00 POC Glucose (mg/dL) 114 H 176 H (70-110) mg/dL Microbiology - Last 24 Hours (Table) 04/27/23 14:12 Gram Stain - Preliminary Knee - Left 04/23/23 16:36 Gram Stain - Final Ascites Fluid Body Fluid Culture - Final 04/24/23 06:47 Blood Culture - Preliminary Blood Assessment and Plan (1) Allergy to sulfa drugs Current Visit: Yes Status: Acute Code(s): Z88.2 - ALLERGY STATUS TO SULFONAMIDES SNOMED Code(s): 27018875 (2) Bacteremia due to Streptococcus Current Visit: Yes Status: Acute Code(s): R78.81 - BACTEREMIA; B95.5 - UNSP STREPTOCOCCUS THE CAUSE OF DISEASES CLASSD [facility] SNOMED Code(s): 408536557914 (3) Septic arthritis of knee, left Current Visit: Yes Status: Acute Code(s): M00.9 - PYOGENIC ARTHRITIS, UNSPECIFIED SNOMED Code(s): 375493910 Plan: 1patient presented to hospital with weakness fever did have Streptococcus agalactiae bacteremia in this patient who did have a significant swelling to the left knee along with the stiffness with aspiration of the left knee cell count m ore than 20,000 white cell high clinical suspicious for septic arthritis likely related to streptococci 2- -blood cultures has been repeated and so far negative 3patient was complaining of some back pain and, patient did have an MRI of the lumbar spine suspicious for epidural abscess from T12-L2 and possible discitis L1-L2, MRI of the cervical spine was negative for any epidural abscess MRI of t he thoracic spine did show extension of the abscess to T11 vertebra 4-patient currently covered with cefazolin 2 g every 8 hours, awaiting surgery Dictation was produced using [email or web address] dictation software. please excuse any grammatical, word or spelling errors. Time with Patient: Less than 30
--- NOTE | 2023-04-29 14:51 | P.PN ---
Subjective Progress Note Date: 04/29/23 Principal diagnosis: Reason for follow-up with Streptococcus bacteremia and concern for possible left knee septic arthritis Patient is a 67-year-old male with a past medical history significant for chronic alcoholism cirrhosis diabetes mellitus reflux in this patient who did have a left knee arthroplasty done by Dr. Bishop patient recently presented to [facility] about a week ago for evaluation of fever patient did have Streptococcus agalactiae bacteremia and the patient was noticed to have some swelling to the left knee s/p aspirate with a white count of 20,000 concerning for septic need for the patient was transferred to [facility] to be evaluated by his orthopedic surgeon.Patient did have an MRI of the lumbar spine suspicious for epidural abscess from T12-L2 and possible discitis L1-L2 MRI cervical spine no epidural abscess MRI thoracic spine tissues extension of the abscess to the T11 vertebra On today's evaluation that is 04/29/2023, the patient continues to be afebrile, the patient is breathing comfortably on room air, patient denies chest pain shortness of breath or cough, the patient denies abdominal pain and no nausea vomiting or diarrhea, the patient pain and swelling to the left knee has decreased in intensity and denies any worsening back pain. Feeling better waiting for surgery Patient did have white count 4.6, creatinine 0.5 blood culture this admission has been negative. Objective - Vital Signs Vital signs: Vital Signs Temp 97.6 F 04/29/23 14:20 Pulse 85 04/29/23 14:20 Resp 16 04/29/23 14:20 BP 166/76 04/29/23 14:20 Pulse Ox 95 04/29/23 14:20 FiO2 Intake & Output 04/28/23 04/29/23 04/29/23 18:59 06:59 18:59 Intake Total 1060 360 Output Total 1425 475 325 Balance -365 -475 35 Weight 78 kg Intake: Intake, IV Titration 100 50 Amount ceFAZolin 2 gm In Sodium 100 50 Chloride 0.9% 50 ml @ 100 mls/hr IVPB Q8HR [facility] Rx# :[id number] Oral 960 Blood Product 310 Rc As-1 Unit 0 [id number] Rc As-1 Unit 310 [id number] Output: Urine 1425 475 325 Other: Voiding Method Toilet Urinal - Exam GENERAL DESCRIPTION: An elderly male lying in bed in no distress RESPIRATORY SYSTEM: Unlabored breathing , decreased breath sounds at bases HEART: S1 S2 regular rate and rhythm , ABDOMEN: Soft , no tenderness EXTREMITIES: Left knee incision is intact did have some swelling And warmth - Labs CBC & Chem 7: 04/29/23 13:45 04/29/23 06:07 Labs: Abnormal Lab Results - Last 24 Hours (Table) 04/28/23 04/28/23 04/28/23 Range/Units 08:46 08:46 14:50 RBC 3.66 L (4.40-5.60) X 10*6/uL Hgb 9.6 L (13.0-17.0) g/dL Hct 31.1 L (39.6-50.0) % MCH 26.2 L (27.0-32.0) pg MCHC 30.9 L (32.0-37.0) g/dL RDW 19.9 H (11.5-14.5) % Potassium 3.4 L (3.5-5.5) mmol/L Carbon Dioxide 18.5 L (21.6-31.8) mmol/L BUN 6.2 L (9.0-27.0) mg/dL Creatinine (0.6-1.5) mg/dL BUN/Creatinine Ratio 8.86 L (12.00-20.00) Ratio Glucose 157 H (70-110) mg/dL POC Glucose (mg/dL) (70-110) mg/dL Calcium 8.5 L (8.7-10.3) mg/dL AST 40 H (14-35) U/L Alkaline Phosphatase 196 H (41-126) U/L Total Protein (6.2-8.2) g/dL Albumin 3.0 L (3.8-4.9) g/dL Globulin 3.5 H (1.6-3.3) g/dL Albumin/Globulin Ratio 0.86 L (1.60-3.17) Ratio Crossmatch See Detail 04/28/23 04/28/23 04/29/23 Range/Units 16:41 21:16 05:52 RBC (4.40-5.60) X 10*6/uL Hgb (13.0-17.0) g/dL Hct (39.6-50.0) % MCH (27.0-32.0) pg MCHC (32.0-37.0) g/dL RDW (11.5-14.5) % Potassium (3.5-5.5) mmol/L Carbon Dioxide (21.6-31.8) mmol/L BUN (9.0-27.0) mg/dL Creatinine (0.6-1.5) mg/dL BUN/Creatinine Ratio (.00-.00) Ratio Glucose (70-110) mg/dL POC Glucose (mg/dL) 139 H 132 H 115 H (70-110) mg/dL Calcium (8.7-10.3) mg/dL AST (14-35) U/L Alkaline Phosphatase (41-126) U/L Total Protein (6.2-8.2) g/dL Albumin (3.8-4.9) g/dL Globulin (1.6-3.3) g/dL Albumin/Globulin Ratio (1.60-3.17) Ratio Crossmatch 04/29/23 04/29/23 04/29/23 Range/Units 06:07 06:07 11:11 RBC 3.26 L (4.40-5.60) X 10*6/uL Hgb 8.4 L (13.0-17.0) g/dL Hct 27.4 L (39.6-50.0) % MCH 25.8 L (27.0-32.0) pg MCHC 30.7 L (32.0-37.0) g/dL RDW 20.1 H (11.5-14.5) % Potassium (3.5-5.5) mmol/L Carbon Dioxide 20.8 L (21.6-31.8) mmol/L BUN 6.1 L (9.0-27.0) mg/dL Creatinine 0.5 L (0.6-1.5) mg/dL BUN/Creatinine Ratio (.00-.00) Ratio Glucose (70-110) mg/dL POC Glucose (mg/dL) 119 H (70-110) mg/dL Calcium 8.4 L (8.7-10.3) mg/dL AST (14-35) U/L Alkaline Phosphatase 189 H (41-126) U/L Total Protein 6.0 L (6.2-8.2) g/dL Albumin 2.8 L (3.8-4.9) g/dL Globulin (1.6-3.3) g/dL Albumin/Globulin Ratio 0.88 L (1.60-3.17) Ratio Crossmatch 04/29/23 04/29/23 Range/Units 13:45 14:38 RBC 3.85 L (4.40-5.60) X 10*6/uL Hgb 10.4 L (13.0-17.0) g/dL Hct 32.7 L (39.6-50.0) % MCH (27.0-32.0) pg MCHC (32.0-37.0) g/dL RDW 18.1 H (11.5-14.5) % Potassium (3.5-5.5) mmol/L Carbon Dioxide (21.6-31.8) mmol/L BUN (9.0-27.0) mg/dL Creatinine (0.6-1.5) mg/dL BUN/Creatinine Ratio (12.00-20.00) Ratio Glucose (70-110) mg/dL POC Glucose (mg/dL) 111 H (70-110) mg/dL Calcium (8.7-10.3) mg/dL AST (14-35) U/L Alkaline Phosphatase (41-126) U/L Total Protein (6.2-8.2) g/dL Albumin (3.8-4.9) g/dL Globulin (1.6-3.3) g/dL Albumin/Globulin Ratio (1.60-3.17) Ratio Crossmatch Microbiology - Last 24 Hours (Table) 04/27/23 14:12 Gram Stain - Preliminary Knee - Left Body Fluid Culture - Preliminary Assessment and Plan (1) Allergy to sulfa drugs Current Visit: Yes Status: Acute Code(s): Z88.2 - ALLERGY STATUS TO SULFONAMIDES SNOMED Code(s): 93739344 (2) Bacteremia due to Streptococcus Current Visit: Yes Status: Acute Code(s): R78.81 - BACTEREMIA; B95.5 - UNSP STREPTOCOCCUS THE CAUSE OF DISEASES CLASSD [facility] SNOMED Code(s): 97186606 9101 (3) Septic arthritis of knee, left Current Visit: Yes Status: Acute Code(s): M00.9 - PYOGENIC ARTHRITIS, UNSPECIFIED SNOMED Code(s): 983446760 Plan: 1patient presented to hospital with weakness fever did have Streptococcus agalactiae bacteremia in this patient who did have a significant swelling to the left knee along with the stiffness with aspiration of the left knee cell count more than 20,000 white cell high clinical suspicious for septic arthritis likely related to streptococci 2- -blood cultures has been repeated and so far negative 3patient was complaining of some back pain and, patient did have an MRI of the lumbar spine suspicious for epidural abscess from T12-L2 and possible discitis L1-L2, MRI of the cervical spine was negative for any epidural abscess MRI of the thoracic spine did show extension of the abscess to T11 vertebra 4-patient to continue with cefazolin 2 g every 8 hours, awaiting surgery this afternoon multiple question concern answered Dictation was produced using [employer] dictation software. please excuse any grammatical, word or spelling errors. Time with Patient: Less than 30
--- NOTE | 2023-04-29 16:18 | CDI ---
Documentation Clarification Form Date: 04/29/2023 03:40:24 PM From: Loli Ahn RN CCDS Phone: [phone] Admit Date: 04/22/2023 08:00:00 PM Patient Name: Dion Kennedy Visit Number: [id number] Discharge Date: ATTENTION: The Clinical Documentation Specialists (CDI) and [facility] Coding Staff appreciate your assistance in clarifying documentation. Please respond to the clarification below the line at the bottom and electronically sign. The CDI & [facility] Coding staff will review the response and follow-up if needed. Please note: Queries are made part of the Legal Health Record. If you have any questions, please contact the author of this message via ITS. Dr. Ray Montes Sepsis is documented H&P, 04/23 and Medicine notes 04/24 04/27, but is not noted in subsequent documentation. Clarification is requested. History/Risk Factors: 67-year-old male while a patient at [facility] had fevers as high as 104 and progressive weakness. The patient was found to have strep agalactaie bacteremia with features of sepsis over at [facility]. Was treated with IV ceftriaxone 2gms and underwent arthrocentesis of the left knee joint fusion, results showing 20,000 wbc suspicious for infected prosthesis and was recommended transfer to [facility] for further evaluation by Dr. Bishop. Before transfer the patient had an abdominal ultrasound finding significant abdominal ascites. 04/23, H&P. Clinical Indicators: 04/22, H&P: Patient was found to have Strep Agalactaie Bacteremia with features of sepsis over at [facility]. 04/28, Medicine note: Strep Algalactaie bacteremia. 04/23, ID Consult: 1patient presented to hospital with weakness fever did have Streptococcus agalactiae bacteremia in this patient who did have a significant swelling to the left knee along with the stiffness with aspiration of the left knee cell count more than 20,000 white cell high clinical suspicious for septic arthritis likely related to streptococci 2-await orthopedics evaluation and definitive surgical treatment 3-blood cultures will be repeated document clearance of bacteremia check inflammatory markers 4-discontinue Rocephin 5-start the patient cefazolin 2 g every 8 hours 04/22, VSS: B/P 162/73; HR 83; Temp 98.8 F Oral; RR 15; SpO2 97% room air 04/24, Blood culture: 04/27 No growth after 72 hours 04/27, MRI, Lumbar spine: Enhancement surrounding low signal area within the epidural space extending from T12 through L2 suspicious for epidural abscess. Possible discitis L1-2 with some endplate change. 04/24, Blood culture: 04/27 Now growth after 72 hours Treatment: 04/23 Cefazolin 2gm IVPB Q8HR, Consults: ID, Orthopedic and Cadiology Please clarify if the Sepsis is: [ ] Sepsis confirmed, remains under treatment [ ] Sepsis confirmed, resolved [ ] Other condition, please specify [ ] Unable to determine Documented by Dr. Cheng 05/03 Medicine progress note: Sepsis source of infection possibly infected left knee prothesis s/p arthrocentesis of the left knee at [facility]. (Template Last Revised: June 2020) MTDD
[2023-04-29] MEDS ORDERED: TRANEXAMIC 1,000 MG/100ML-NACL PREMIX BAG ONE (16:43)
[2023-04-29] MEDS ORDERED: HYDROmorphone (PF) 1 MG/ML ONE (16:43)
[2023-04-29] MEDS ORDERED: PHENYLEPHRINE 10 MG/ML VIAL ONE (16:43)
[2023-04-29] MEDS ORDERED: MIDAZOLAM 2 MG/2 ML VIAL ONE (16:43)
[2023-04-29] MEDS ORDERED: ROCURONIUM 10 MG/ML (5 ML VIAL) IV ONE (16:43)
[2023-04-29] MEDS ORDERED: KETAMINE HCL IN 0.9 % NACL 50 MG/5 ML SYRINGE ONE (16:43)
[2023-04-29] MEDS ORDERED: SUCCINYLCHOLINE CHLORIDE 200 MG/10 ML VIAL IV ONE (16:43)
[2023-04-29] MEDS ORDERED: PROPOFOL 10 MG/ML 20 ML VIAL IV ONE (16:43)
[2023-04-29] MEDS ORDERED: fentaNYL (PF) 50 MCG/ML 2 ML AMP ONE (16:43)
[2023-04-29] MEDS ORDERED: LIDOCAINE 1% INJ 10MG/ML (20 ML MDV) ONE (16:43)
[2023-04-29] MEDS ORDERED: TRANEXAMIC 1,000 MG/100ML-NACL 1,000 MG in SALINE 1 100ML.BAG IVPB ONE ×2 (17:05→17:08)
[2023-04-29] MEDS ORDERED: THROMBIN (BOVINE) 5,000 UNIT VIAL MISCELLANE ONE (17:37)
[2023-04-29] MEDS ORDERED: GELATIN SPONGE,ABSORB (LARGE) 1 EACH SPONGE MISCELLANE ONE (17:37)
[2023-04-29] MEDS ORDERED: LACTATED RINGERS 1,000 ML IV ONE ×3 (17:38→17:44)
[2023-04-29] MEDS ORDERED: SODIUM CHLORIDE 0.9% 50 ML with ceFAZolin 2,000 MG IV ONE ×2 (17:38)
[2023-04-29] MEDS ORDERED: ceFAZolin 3,000 MG in SODIUM CHLORIDE 0.9% IRRIGATIO 3,000 ML IRRIGATION ONE (17:40)
[2023-04-29] MEDS ORDERED: GENTAMICIN 80 MG in SODIUM CHLORIDE 0.9% IRRIGATIO 3,000 ML IRRIGATION ONE (17:40)
[2023-04-29 18:00] LABS: ABG Base Excess -7.5 mmol/L; ABG HCO3 16 mmol/L (21-25); ABG Oxygen Saturation >100.0 % (94-97); ABG PCO2 26 mmHg (35-45); ABG PO2 218 mmHg (83-108)
[2023-04-29 18:01] LABS: Anisocytosis Slight; Basophils # (A) 0.1 k/uL (0-0.2); Basophils % (A) 1 %; Eosinophils # (A) 0.2 k/uL (0-0.7); Eosinophils % (A) 3 %; HCT 33.1 % (39.0-53.0); Hypochromasia Slight; Lymphocytes # (A) 1.4 k/uL (1.0-4.8); Lymphocytes % (A) 24 %; MCH 27.9 pg (25.0-35.0); MCHC 33.1 g/dL (31.0-37.0); MCV 84.3 fL (80.0-100.0); Mean Platelet Volume 7.8; Monocytes # (A) 0.5 k/uL (0-1.0); Monocytes % (A) 8 %; Neutrophils # (A) 3.7 k/uL (1.3-7.7); Neutrophils % (A) 62 %; Platelet Count 197 k/uL (150-450); Poikilocytosis Slight; RBC 3.93 m/uL (4.30-5.90); RDW 17.6 % (11.5-15.5); WBC 5.9 k/uL (3.8-10.6)
[2023-04-29 18:21] LABS: African American GFR (CKD) >90 (>60 ml/min/1.73 sqM); Anion Gap 6 mmol/L; Blood Urea Nitrogen 7 mg/dL (9-20); Calcium 7.9 mg/dL (8.4-10.2); Carbon Dioxide 19 mmol/L (22-30); Chloride 111 mmol/L (98-107); Glucose 86 mg/dL (74-99); Non-African American GFR(CKD) >90 (>60 ml/min/1.73 sqM); Sodium 136 mmol/L (137-145)
[2023-04-29 18:26] LABS: Potassium 4.1 mmol/L (3.5-5.1)
[2023-04-29] MEDS ORDERED: VANCOMYCIN 1,000 MG VIAL MISCELLANE ONE ×3 (19:16)
[2023-04-29] MEDS ORDERED: TOBRAMYCIN SULFATE 1.2 GM VIAL MISCELLANE ONE ×2 (19:17)
--- NOTE | 2023-04-29 20:43 | P.ANPRN ---
Procedure Note - Anesthesia - Invasive Line Left Arterial Line Time Out Performed: Yes Date of Procedure: 04/29/23 Time of Procedure: 15:31 Location of Patient: PreOp Preparation: Sterile Prep, Sterile Dressing Arterial Line Location: Radial Ultrasound Used: No Purpose - Visualization and Identification of Vasculature: No Image Stored and Saved: No Narrative: Central line placement per sterile protocol utilized.
[2023-04-29] MEDS ORDERED: HYDROcodone/APAP 7.5-325MG 1 EACH TAB PO PRN (21:34)
[2023-04-29 21:36] LABS: Glucose,Whole Blood 121 mg/dL (70-110)
[2023-04-29 21:52] LABS: ABG Base Excess -3.8 mmol/L; ABG HCO3 21 mmol/L (21-25); ABG Oxygen Saturation 99.9 % (94-97); ABG PCO2 35 mmHg (35-45); ABG PH 7.39 (7.35-7.45); ABG PO2 383 mmHg (83-108); ABG TCO2 22 mmol/L (19-24); Allen Test Performed? Yes
[2023-04-29 21:53] LABS: Anisocytosis Slight; Basophils # (A) 0.1 k/uL (0-0.2); Basophils % (A) 1 %; Eosinophils # (A) 0.1 k/uL (0-0.7); Eosinophils % (A) 2 %; HCT 28.1 % (39.0-53.0); Hypochromasia Moderate; Lymphocytes # (A) 1.1 k/uL (1.0-4.8); Lymphocytes % (A) 14 %; MCH 27.9 pg (25.0-35.0); MCHC 32.7 g/dL (31.0-37.0); MCV 85.3 fL (80.0-100.0); Mean Platelet Volume 8.3; Monocytes # (A) 0.5 k/uL (0-1.0); Monocytes % (A) 6 %; Neutrophils # (A) 5.8 k/uL (1.3-7.7); Neutrophils % (A) 76 %; Platelet Count 249 k/uL (150-450); Poikilocytosis Slight; RBC 3.29 m/uL (4.30-5.90); RDW 17.7 % (11.5-15.5); WBC 7.6 k/uL (3.8-10.6)
[2023-04-29 22:05] LABS: African American GFR (CKD) >90 (>60 ml/min/1.73 sqM); Anion Gap 5 mmol/L; Blood Urea Nitrogen 8 mg/dL (9-20); Calcium 7.3 mg/dL (8.4-10.2); Carbon Dioxide 19 mmol/L (22-30); Chloride 112 mmol/L (98-107); Glucose 105 mg/dL (74-99); Non-African American GFR(CKD) >90 (>60 ml/min/1.73 sqM); Potassium 3.8 mmol/L (3.5-5.1); Sodium 136 mmol/L (137-145)
[2023-04-29] MEDS: COLESEVELAM 625 MG TAB PO SCH (22:11)
[2023-04-29 22:14] LABS: HGB 9.2 gm/dL (13.0-17.5)
--- NOTE | 2023-04-29 22:33 | XR ---
EXAM: XR Chest, 1 View CLINICAL HISTORY: ITS.REASON XR Reason: Tube placement TECHNIQUE: Frontal view of the chest. COMPARISON: No relevant prior studies available. FINDINGS: Lungs: Unremarkable. No consolidation. Pleural space: Small bilateral pleural effusions. No pneumothorax. Heart: Cardiomegaly. Mediastinum: Unremarkable. Normal mediastinal contour. Bones/joints: Posterior lumbar fusion hardware. No acute fracture. Soft tissues: Cutaneous skin kaleb. Tubes, lines and devices: Feeding tube terminates in the stomach. Endotracheal tube terminates 4.6 cm above the chico. IMPRESSION: 1. Feeding tube terminates in the stomach. 2. Endotracheal tube terminates 4.6 cm above the [place]. 3. Small bilateral pleural effusions.
[2023-04-29] MEDS: HYDROcodone/APAP 10-325MG 1 EACH TAB PO PRN (23:17)
[2023-04-30] MEDS: NOREPINEPHRINE 4 MG in SODIUM CHLORIDE 0.9% 250 ML IV SCH ×2 (00:25→19:40)
[2023-04-30 00:31] LABS: Glucose,Whole Blood 126 mg/dL (70-110)
[2023-04-30] MEDS: HYDROcodone/APAP 10-325MG 1 EACH TAB PO PRN ×4 (04:28→19:43)
--- NOTE | 2023-04-30 04:44 | P.PN ---
Subjective Progress Note Date: 04/29/23 This is a 67-year-old male patient of Dr. Loli Campbell, patient has medical history of abdominal ascites and liver cirrhosis, chronic alcoholism, diabetes mellitus, hemorrhoids, gastroesophageal reflux disease. Patient follows with dr rocco turcios underwent upper and lower endoscopy in January of 2023 has history of esophageal varices which underwent banding in Jan as well. Has a history of left lower extremity total knee arthroplasty done a year ago, initially presented to [facility] with left lower extremity edema with concern for infected prosthetic of the left knee. He presented to [facility] with fevers progressive weakness and back pain. States fever was as high as 104. He was also anemic hemoglobin 6.5 requiring 2 unit of PRBC. Patient was found to have strep agalactaie bacteremia with features of sepsis over at [facility]. He was treated with IV ceftriaxone 2 grams. Patient also with recent influenza infection and hypoxia at [facility]. He had a venous doppler of the left leg at [facility] negative for acute DVT. He underwent arthrocentesis of the left knee joint effusion show ing 20,000 WBCs and suspicious for infected prosthesis was recommended to transfer to [facility] for further evaluation by Dr Bishop. Yesterday before transfer he underwent work up for abdominal ascites which he has undergo paracentesis in the past, he had an abdominal ultrasound showing significant amount of intraabdominal ascites. IR consulted. He is admitted to this hospital with consults placed to [place] and infectious disease. 04/24/2023 Patient evaluated today sitting up in bed. He was seen in consultation by ID who has changed antibiotics to IV cefazolin from ceftriaxone with plans to repeat blood culture. Underwent paracentesis 1.5 L off. Sodium 135, potassium 3.3, BUN 8, creatinine 0.50, magnesium 1.8, CRP 6.2. Orthopedics not recommending any surgical intervention at this time. 04/25/2023 Patient is evaluated today resting in bed. pts is at the bedside and plan of care was discussed thoroughly. Patient remains on IV Cefazolin with repeat blood cultures pending and negative so far. Infectious disease is following this case. He is status post paracentesis. Again orthopedics not recommending any surgical intervention for the right knee septic arthritis. 04/26/2023 Patient is still complaining from left knee swelling, patient states is better, pain controlled no erythema. Orthopedic surgery planning for surgery for infected prosthesis onto stages first one on 04/29 MRI of the lumbar spine is ordered to rule out infection Cardiology team preoperative evaluation is ordered Patient remains on IV cefazolin Repeat blood culture/6 still show no growth ID team on the case 04/27/2023 Patient with minimal back pain and his left knee with no significant pain is still warm and swollen with no redness. Initially orthopedic team are planning for surgical debridement of his left knee. However MRI of the lumbar spine showing epidural abscess of the distal thoracic and irrigated proximal lumbar vertebrae. Orthopedic team still on the case with follow the patient and needs surgery was held and replaced to do lumbar surgery with ( T11-L3 decompression and fusion along with epidural abscess/phlegmon evacuation for 04/29/2023.) Preoperative cardiac evaluation is requested Chest pain or dyspnea No change in urine or bowel habits. No fever. Monitor blood pressure Continue with cefazolin 04/28. Patient seen and examined. Still has left knee pain. 04/29/2023 Patient is seen this am and awaiting T11-L3 decompression and fusion along with epidural abscess/phlegmon evacuation some time today with orthopedics. ID following and patient is continued on IV antibiotics and awaiting surgery and finalized cultures. Will await and discuss with ortho regarding left knee as patient continues to report left knee swelling and pain. Patient is afebrile with no reports of chest pain or shortness of breath. Patient hemoglobin is 9 today and per ortho patient is to receive 2 units of blood for surgery. Will await surgical report REVIEW OF SYSTEMS: CONSTITUTIONAL: No fever, no malaise,. CARDIOVASCULAR: No chest pain, no palpitations, no syncope. PULMONARY: No shortness of breath, no cough, GASTROINTESTINAL: No diarrhea, no nausea, no vomiting, no abdominal pain. NEUROLOGICAL: No headaches, no weakness, PHYSICAL EXAMINATION: GENERAL: The patient is alert and oriented x3, not in any acute distress. Well developed, well nourished. HEENT: Pupils are round and equally reacting to light. EOMI. No scleral icterus. No conjunctival pallor. Normocephalic, atraumatic. No pharyngeal erythema. No thyromegaly. CARDIOVASCULAR: S1 and S2 present. No murmurs, rubs, or gallops. PULMONARY: Chest is clear to auscultation, no wheezing or crackles. ABDOMEN: Soft, nontender, nondistended, normoactive bowel sounds. No palpable organomegaly. MUSCULOSKELETAL: No joint swelling or deformity. Left knee tender EXTREMITIES: No cyanosis, clubbing, or pedal edema. NEUROLOGICAL: Gross neurological examination did not reveal any focal deficits. diffusely weak SKIN: No rashes. Assessment: Strep Algalactaie bacteremia with features of sepsis, ongoing likely due to epidural abscess as well as concerns for left knee septic joint Left knee septic joint Epidural abscess History of esophageal varices with banding in january Hypokalemia monitor BMP Hx of cirrhosis, abdominal ascites ultrasound showing significant ascites s/p paracentesis with 1.5 L off and patient has been started on aldactone and lasix BID. Hx of GERD Diabetes Mellitus type 2 hgb A1C 6.9 continue on accuchecks achs and sliding scale insulin. History of left TKA Hypertension continues on losartan BID and atenolol. Hemorrhoids Chronic alcohol use monitor for alcohol withdrawal Hx of gout continue on allopurinol, Plan: Patient is currently NPO and scheduled to undergo T11-L3 decompression and fusion along with epidural abscess/phlegmon evacuation today Resume diet when cleared by surgery Patient to receive 2 units of PRBC per ortho for surgery today. hgb is 9 Will follow up with repeat labs and continue to monitor closely Will await surgical report Patient to continue on IV antibiotics per ID recommendations The impression and plan of care has been dictated by Cortney Pierce, Nurse Practitioner as directed. Dr. Danuta MD I have performed a history and examination and MDM of this patient, discussed the same with the dictator, and agree with the dictator's assessment and plan as written ,documented as a scribe. Based on total visit time, I have performed more than 50% of the visit. Objective - Vital Signs Vital signs: Vital Signs Temp 99.0 F 04/29/23 08:00 Pulse 85 04/29/23 08:00 Resp 17 04/29/23 08:00 BP 149/68 04/29/23 08:00 Pulse Ox 95 04/29/23 08:00 FiO2 Intake & Output 04/28/23 04/29/23 04/29/23 18:59 06:59 18:59 Intake Total 1060 Output Total 1425 475 Balance -365 -475 Intake: Intake, IV Titration 100 Amount ceFAZolin 2 gm In Sodium 100 Chloride 0.9% 50 ml @ 100 mls/hr IVPB Q8HR [facility] Rx# :[id number] Oral 960 Output: Urine 1425 475 Other: Voiding Method Toilet Urinal - Labs CBC & Chem 7: 04/29/23 21:46 04/29/23 21:46 Labs: Abnormal Lab Results - Last 24 Hours (Table) 04/28/23 04/28/23 04/28/23 Range/Units 08:46 08:46 11:00 RBC 3.66 L (4.40-5.60) X 10*6/uL Hgb 9.6 L (13.0-17.0) g/dL Hct 31.1 L (39.6-50.0) % MCH 26.2 L (27.0-32.0) pg MCHC 30.9 L (32.0-37.0) g/dL RDW 19.9 H (11.5-14.5) % Potassium 3.4 L (3.5-5.5) mmol/L Carbon Dioxide 18.5 L (21.6-31.8) mmol/L BUN 6.2 L (9.0-27.0) mg/dL Creatinine (0.6-1.5) mg/dL BUN/Creatinine Ratio 8.86 L (12.00-20.00) Ratio Glucose 157 H (70-110) mg/dL POC Glucose (mg/dL) 176 H (70-110) mg/dL Calcium 8.5 L (8.7-10.3) mg/dL AST 40 H (14-35) U/L Alkaline Phosphatase 196 H (41-126) U/L Total Protein (6.2-8.2) g/dL Albumin 3.0 L (3.8-4.9) g/dL Globulin 3.5 H (1.6-3.3) g/dL Albumin/Globulin Ratio 0.86 L (1.60-3.17) Ratio 04/28/23 04/28/23 04/29/23 Range/Units 16:41 21:16 05:52 RBC (4.40-5.60) X 10*6/uL Hgb (13.0-17.0) g/dL Hct (39.6-50.0) % MCH (27.0-32.0) pg MCHC (32.0-37.0) g/dL RDW (11.5-14.5) % Potassium (3.5-5.5) mmol/L Carbon Dioxide (21.6-31.8) mmol/L BUN (9.0-27.0) mg/dL Creatinine (0.6-1.5) mg/dL BUN/Creatinine Ratio (12.00-20.00) Ratio Glucose (70-110) mg/dL POC Glucose (mg/dL) 139 H 132 H 115 H (70-110) mg/dL Calcium (8.7-10.3) mg/dL AST (14-35) U/L Alkaline Phosphatase (41-126) U/L Total Protein (6.2-8.2) g/dL Albumin (3.8-4.9) g/dL Globulin (1.6-3.3) g/dL Albumin/Globulin Ratio (1.60-3.17) Ratio 04/29/23 04/29/23 Range/Units 06:07 06:07 RBC 3.26 L (4.40-5.60) X 10*6/uL Hgb 8.4 L (13.0-17.0) g/dL Hct 27.4 L (39.6-50.0) % MCH 25.8 L (27.0-32.0) pg MCHC 30.7 L (32.0-37.0) g/dL RDW 20.1 H (11.5-14.5) % Potassium (3.5-5.5) mmol/L Carbon Dioxide 20.8 L (21.6-31.8) mmol/L BUN 6.1 L (9.0-27.0) mg/dL Creatinine 0.5 L (0.6-1.5) mg/dL BUN/Creatinine Ratio (12.00-20.00) Ratio Glucose (70-110) mg/dL POC Glucose (mg/dL) (70-110) mg/dL Calcium 8.4 L (8.7-10.3) mg/dL AST (14-35) U/L Alkaline Phosphatase 189 H (41-126) U/L Total Protein 6.0 L (6.2-8.2) g/dL Albumin 2.8 L (3.8-4.9) g/dL Globulin (1.6-3.3) g/dL Albumin/Globulin Ratio 0.88 L (1.60-3.17) Ratio Microbiology - Last 24 Hours (Table) 04/27/23 14:12 Gram Stain - Preliminary Knee - Left Body Fluid Culture - Preliminary
[2023-04-30 05:12] LABS: Anisocytosis Slight; Basophils # (A) 0.1 k/uL (0-0.2); Basophils % (A) 1 %; Eosinophils # (A) 0.3 k/uL (0-0.7); Eosinophils % (A) 2 %; HCT 33.2 % (39.0-53.0); HGB 10.8 gm/dL (13.0-17.5); Hypochromasia Moderate; Lymphocytes # (A) 1.9 k/uL (1.0-4.8); Lymphocytes % (A) 16 %; MCH 27.9 pg (25.0-35.0); MCHC 32.5 g/dL (31.0-37.0); MCV 85.8 fL (80.0-100.0); Mean Platelet Volume 8.2; Monocytes # (A) 0.7 k/uL (0-1.0); Monocytes % (A) 6 %; Neutrophils # (A) 8.5 k/uL (1.3-7.7); Neutrophils % (A) 72 %; Platelet Count 344 k/uL (150-450); Poikilocytosis Slight; RBC 3.87 m/uL (4.30-5.90); RDW 17.8 % (11.5-15.5); WBC 11.8 k/uL (3.8-10.6)
[2023-04-30 05:23] LABS: ALT 14 U/L (4-49); AST 48 U/L (17-59); African American GFR (CKD) >90 (>60 ml/min/1.73 sqM); Albumin 2.4 g/dL (3.5-5.0); Alkaline Phosphatase 173 U/L (38-126); Anion Gap 7 mmol/L; Blood Urea Nitrogen 10 mg/dL (9-20); Calcium 7.6 mg/dL (8.4-10.2); Carbon Dioxide 18 mmol/L (22-30); Chloride 111 mmol/L (98-107); Glucose 114 mg/dL (74-99); Magnesium 1.3 mg/dL (1.6-2.3); Non-African American GFR(CKD) >90 (>60 ml/min/1.73 sqM); Potassium 4.2 mmol/L (3.5-5.1); Sodium 136 mmol/L (137-145); Total Protein 5.9 g/dL (6.3-8.2)
[2023-04-30 06:04] LABS: INR 1.2 (<1.2)
[2023-04-30] MEDS: MAGNESIUM SULFATE-D5W PMX 1 GM in DEXTROSE/WATER 1 100ML.BAG IVPB SCH ×4 (06:22→13:08)
[2023-04-30 06:30] LABS: ABG Base Excess -4.2 mmol/L; ABG HCO3 21 mmol/L (21-25); ABG Oxygen Saturation 98.7 % (94-97); ABG PCO2 33 mmHg (35-45); ABG PH 7.41 (7.35-7.45); ABG PO2 121 mmHg (83-108); ABG TCO2 22 mmol/L (19-24); Allen Test Performed? Yes
[2023-04-30 06:32] LABS: Glucose,Whole Blood 120 mg/dL (70-110)
[2023-04-30] MEDS: INSULIN ASPART (NovoLOG) 100 UNIT/ML VIAL SQ SCH ×3 (06:32→17:49)
[2023-04-30] MEDS: PANTOPRAZOLE 40 MG TABLET PO SCH (06:39)
[2023-04-30] MEDS: IPRATROPIUM-ALBUTEROL 3 ML NEB INHALATION PRN ×2 (08:05→11:31)
--- NOTE | 2023-04-30 08:09 | XR ---
EXAMINATION TYPE: XR chest 1V portable DATE OF EXAM: 04/30/2023 COMPARISON: 04/29/2023 INDICATION: Tube placement TECHNIQUE: Single frontal view of the chest is obtained. FINDINGS: The heart size is enlarged. The pulmonary vasculature is normal. The lungs are clear. Endotracheal tube is place with the tip 5.2 cm above the [place]ico. Nasogastric tube transverses the tho rax. There is blunting at the left costophrenic angle. Underlying infiltrate may be present. Continue d Follow-up is recommended. IMPRESSION: 1. Lines and catheters discussed above. 2. Left costophrenic angle infiltrate. Continued follow-up recommended
--- NOTE | 2023-04-30 08:34 | P.PN ---
Subjective Progress Note Date: 04/30/23 Principal diagnosis: suspected L knee prosthetic infection, tx from [facility] epidural abscess Patient seen and examined in the ICU. Patient is currently intubated, PPEP 5, FIO2 40. Examination is limited due to sedation. Vital signs are stable, BP 95/52, HR 85, RR 15. Truong catheter is patent. Patient has had a low urine output overnight. Surgical incision to the lumbar spine with Hemovac present 205ml output overnight, maintain compression to drain and continue to record ou tput. No edema noted to bilateral upper and lower extremities. Patient has remained afebrile. Objective - Vital Signs Vital signs: Vital Signs Temp 97.8 F 04/30/23 04:00 Pulse 85 04/30/23 07:00 Resp 18 04/30/23 07:00 BP 95/52 04/30/23 07:00 Pulse Ox 99 04/30/23 07:00 FiO2 50 04/30/23 04:00 Intake & Output 04/29/23 04/30/23 04/30/23 18:59 06:59 18:59 Intake Total 2822 1452.898 50 Output Total 825 1500 15 Balance 1996 -. 35 Weight 78 kg 90.1 kg Intake: IV 2152 400 50 KVO 400 50 Intake, IV Titration 50 1052.898 Amount Lactated Ringers 1,000 ml 1000 @ 0 mls/hr IV .[facility] Rx#:[id number] Norepinephrine 4 mg In 52.898 Sodium Chloride 0.9% 250 ml @ 0.03 MCG/KG/MIN 8. 915 mls/hr IV .Q24H [facility] Rx#:[id number] ceFAZolin 2 gm In Sodium 50 Chloride 0.9% 50 ml @ 100 mls/hr IVPB Q8HR [facility] Rx# :[id number] Blood Product 620 As-1 Unit 310 [id number] Rc As-1 Unit 310 [id number] Output: Drainage 205 Right Back 205 Urine 825 895 15 Estimated Blood Loss 400 Other: Voiding Method Indwelling Catheter ABP, PAP, CO, CI - Last Documented Arterial Blood Pressure 107/48 - Exam Physical Examination Limited examination due to patient being intubated and under sedation. Surgical incision to the lumbar spine with Hemovac present. No edema to bilateral upper and lower extremities noted. Truong catheter is patent with allison color urine output - Labs CBC & Chem 7: 04/30/23 05:01 04/30/23 05:01 Labs: Abnormal Lab Results - Last 24 Hours (Table) 04/28/23 04/29/23 04/29/23 Range/Units 14:50 06:07 06:07 WBC (3.8-10.6) k/uL RBC 3.26 L (4.40-5.60) X 10*6/uL Hgb 8.4 L (13.0-17.0) g/dL Hct 27.4 L (39.6-50.0) % MCH 25.8 L (27.0-32.0) pg MCHC 30.7 L (32.0-37.0) g/dL RDW 20.1 H (11.5-14.5) % Neutrophils # (1.3-7.7) k/uL PT (10.0-12.5) sec INR (<1.2) ABG pCO2 (35-45) mmHg ABG pO2 (83-108) mmHg ABG HCO3 (21-25) mmol/L ABG O2 Saturation (94-97) % Sodium (137-145) mmol/L Chloride (98-107) mmol/L Carbon Dioxide 20.8 L (21.6-31.8) mmol/L BUN 6.1 L (9.0-27.0) mg/dL Creatinine 0.5 L (0.6-1.5) mg/dL Glucose (74-99) mg/dL POC Glucose (mg/dL) (70-110) mg/dL Calcium 8.4 L (8.7-10.3) mg/dL Magnesium (1.6-2.3) mg/dL Alkaline Phosphatase 189 H (41-126) U/L Total Protein 6.0 L (6.2-8.2) g/dL Albumin 2.8 L (3.8-4.9) g/dL Albumin/Globulin Ratio 0.88 L (1.60-3.17) Ratio Crossmatch See Detail 04/29/23 04/29/23 04/29/23 Range/Units 11:11 13:45 14:38 WBC (3.8-10.6) k/uL RBC 3.85 L (4.40-5.60) X 10*6/uL Hgb 10.4 L (13.0-17.0) g/dL Hct 32.7 L (39.6-50.0) % MCH (27.0-32.0) pg MCHC (32.0-37.0) g/dL RDW 18.1 H (11.5-14.5) % Neutrophils # (1.3-7.7) k/uL PT (10.0-12.5) sec INR (<1.2) ABG pCO2 (35-45) mmHg ABG pO2 (83-108) mmHg ABG HCO3 (21-25) mmol/L ABG O2 Saturation (94-97) % Sodium (137-145) mmol/L Chloride (98-107) mmol/L Carbon Dioxide (21.6-31.8) mmol/L BUN (9.0-27.0) mg/dL Creatinine (0.6-1.5) mg/dL Glucose (74-99) mg/dL POC Glucose (mg/dL) 119 H 111 H (70-110) mg/dL Calcium (8.7-10.3) mg/dL Magnesium (1.6-2.3) mg/dL Alkaline Phosphatase (41-126) U/L Total Protein (6.2-8.2) g/dL Albumin (3.8-4.9) g/dL Albumin/Globulin Ratio (1.60-3.17) Ratio Crossmatch 04/29/23 04/29/23 04/29/23 Range/Units 17:49 18:00 18:00 WBC (3.8-10.6) k/uL RBC 3.93 L (4.40-5.60) X 10*6/uL Hgb 11.0 L (13.0-17.0) g/dL Hct 33.1 L (39.6-50.0) % MCH (27.0-32.0) pg MCHC (32.0-37.0) g/dL RDW 17.6 H (11.5-14.5) % Neutrophils # (1.3-7.7) k/uL PT (10.0-12.5) sec INR (<1.2) ABG pCO2 26 L (35-45) mmHg ABG pO2 218 H (83-108) mmHg ABG HCO3 16 L (21-25) mmol/L ABG O2 Saturation >100.0 H (94-97) % Sodium 136 L (137-145) mmol/L Chloride 111 H (98-107) mmol/L Carbon Dioxide 19 L (21.6-31.8) mmol/L BUN 7 L (9.0-27.0) mg/dL Creatinine 0.40 L (0.6-1.5) mg/dL Glucose (74-99) mg/dL POC Glucose (mg/dL) (70-110) mg/dL Calcium 7.9 L (8.7-10.3) mg/dL Magnesium (1.6-2.3) mg/dL Alkaline Phosphatase (41-126) U/L Total Protein (6.2-8.2) g/dL Albumin (3.8-4.9) g/dL Albumin/Globulin Ratio (1.60-3.17) Ratio Crossmatch 04/29/23 04/29/23 04/29/23 Range/Units 21:34 21:46 21:46 WBC (3.8-10.6) k/uL RBC 3.29 L (4.40-5.60) X 10*6/uL Hgb 9.2 L D (13.0-17.0) g/dL Hct 28.1 L (39.6-50.0) % MCH (27.0-32.0) pg MCHC (32.0-37.0) g/dL RDW 17.7 H (11.5-14.5) % Neutrophils # (1.3-7.7) k/uL PT (10.0-12.5) sec INR (<1.2) ABG pCO2 (35-45) mmHg ABG pO2 (83-108) mmHg ABG HCO3 (21-25) mmol/L ABG O2 Saturation (94-97) % Sodium 136 L (137-145) mmol/L Chloride 112 H (98-107) mmol/L Carbon Dioxide 19 L (21.6-31.8) mmol/L BUN 8 L (9.0-27.0) mg/dL Creatinine 0.52 L (0.6-1.5) mg/dL Glucose 105 H (74-99) mg/dL POC Glucose (mg/dL) 121 H (70-110) mg/dL Calcium 7.3 L (8.7-10.3) mg/dL Magnesium (1.6-2.3) mg/dL Alkaline Phosphatase (41-126) U/L Total Protein (6.2-8.2) g/dL Albumin (3.8-4.9) g/dL Albumin/Globulin Ratio (1.60-3.17) Ratio Crossmatch 04/29/23 04/30/23 04/30/23 Range/Units 21:49 00:30 05:01 WBC (3.8-10.6) k/uL RBC (4.40-5.60) X 10*6/uL Hgb (13.0-17.0) g/dL Hct (39.6-50.0) % MCH (27.0-32.0) pg MCHC (32.0-37.0) g/dL RDW (11.5-14.5) % Neutrophils # (1.3-7.7) k/uL PT 13.0 H (10.0-12.5) sec INR 1.2 H (<1.2) ABG pCO2 (35-45) mmHg ABG pO2 383 H (83-108) mmHg ABG HCO3 (21-25) mmol/L ABG O2 Saturation 99.9 H (94-97) % Sodium (137-145) mmol/L Chloride (98-107) mmol/L Carbon Dioxide (21.6-31.8) mmol/L BUN (9.0-27.0) mg/dL Creatinine (0.6-1.5) mg/dL Glucose (74-99) mg/dL POC Glucose (mg/dL) 126 H (70-110) mg/dL Calcium (8.7-10.3) mg/dL Magnesium (1.6-2.3) mg/dL Alkaline Phosphatase (41-126) U/L Total Protein (6.2-8.2) g/dL Albumin (3.8-4.9) g/dL Albumin/Globulin Ratio (1.60-3.17) Ratio Crossmatch 04/30/23 04/30/23 04/30/23 Range/Units 05:01 05:01 06:26 WBC 11.8 H (3.8-10.6) k/uL RBC 3.87 L (4.40-5.60) X 10*6/uL Hgb 10.8 L (13.0-17.0) g/dL Hct 33.2 L (39.6-50.0) % MCH (27.0-32.0) pg MCHC (32.0-37.0) g/dL RDW 17.8 H (11.5-14.5) % Neutrophils # 8.5 H (1.3-7.7) k/uL PT (10.0-12.5) sec INR (<1.2) ABG pCO2 33 L (35-45) mmHg ABG pO2 121 H (83-108) mmHg ABG HCO3 (21-25) mmol/L ABG O2 Saturation 98.7 H (94-97) % Sodium 136 L (137-145) mmol/L Chloride 111 H (98-107) mmol/L Carbon Dioxide 18 L (21.6-31.8) mmol/L BUN (9.0-27.0) mg/dL Creatinine 0.49 L (0.6-1.5) mg/dL Glucose 114 H (74-99) mg/dL POC Glucose (mg/dL) (70-110) mg/dL Calcium 7.6 L (8.7-10.3) mg/dL Magnesium 1.3 L (1.6-2.3) mg/dL Alkaline Phosphatase 173 H (41-126) U/L Total Protein 5.9 L (6.2-8.2) g/dL Albumin 2.4 L (3.8-4.9) g/dL Albumin/Globulin Ratio (1.60-3.17) Ratio Crossmatch 04/30/23 Range/Units 06:30 WBC (3.8-10.6) k/uL RBC (4.40-5.60) X 10*6/uL Hgb (13.0-17.0) g/dL Hct (39.6-50.0) % MCH (27.0-32.0) pg MCHC (32.0-37.0) g/dL RDW (11.5-14.5) % Neutrophils # (1.3-7.7) k/uL PT (10.0-12.5) sec INR (<1.2) ABG pCO2 (35-45) mmHg ABG pO2 (83-108) mmHg ABG HCO3 (21-25) mmol/L ABG O2 Saturation (94-97) % Sodium (137-145) mmol/L Chloride (98-107) mmol/L Carbon Dioxide (21.6-31.8) mmol/L BUN (9.0-27.0) mg/dL Creatinine (0.6-1.5) mg/dL Glucose (74-99) mg/dL POC Glucose (mg/dL) 120 H (70-110) mg/dL Calcium (8.7-10.3) mg/dL Magnesium (1.6-2.3) mg/dL Alkaline Phosphatase (41-126) U/L Total Protein (6.2-8.2) g/dL Albumin (3.8-4.9) g/dL Albumin/Globulin Ratio (1.60-3.17) Ratio Crossmatch Microbiology - Last 24 Hours (Table) 04/27/23 14:12 Anaerobic Culture - Preliminary Knee - Left 04/27/23 14:12 Gram Stain - Preliminary Knee - Left Body Fluid Culture - Preliminary 04/24/23 06:47 Blood Culture - Final Blood Assessment and Plan Assessment: Postop day 1: T11-L3 decompression and fusion with evacuation of epidural abscess Left knee effusion Possible left knee periprosthetic infection Bacteremia Low back pain Epidural abscess thoracic/lumbar spine Cirrhosis Multiple medical comorbidities Plan: -Appreciate websphere commerce consultant and team management. -Prescription for TLSO brace and rolling walker in chart -Pain control: Adequate at this time -Meds: reviewed -DVT PPX: Mechanical, may start heparin tonight -Encourage IS 10x/hr -Dispo: Clinically pending *I reviewed and discussed this case with my attending Dr. Narayanan, whom has reviewed this chart and films and is in agreement with assessment and plan of care as outlined above. I have personally seen and examined the patient, performed the documentation and the assessment and plan as written. Number of minutes spent on the visit: 20m.
[2023-04-30] MEDS: ASPIRIN 81 MG PO SCH (08:37)
[2023-04-30] MEDS: FUROSEMIDE 20 MG TAB PO SCH ×2 (08:37→17:40)
[2023-04-30] MEDS: MULTIVITAMINS, THERA 1 EACH TAB PO SCH (08:38)
[2023-04-30] MEDS: SPIRONOLACTONE 25 MG TAB PO SCH (08:38)
[2023-04-30] MEDS: ASCORBIC ACID 500 MG TAB PO SCH (08:38)
[2023-04-30] MEDS: CHOLECALCIFEROL 25 MCG (1000 IU) TABLET PO SCH (08:38)
[2023-04-30] MEDS: SENNOSIDES-DOCUSATE SODIUM 1 EACH TAB PO SCH (08:38)
[2023-04-30] MEDS: atenoloL 50 MG TAB PO SCH (08:39)
[2023-04-30] MEDS: LOSARTAN 50 MG TAB PO SCH ×2 (08:39→20:50)
[2023-04-30] MEDS: allopurinoL 300 MG TAB PO SCH (09:35)
--- NOTE | 2023-04-30 10:08 | P.CNPUL ---
History of Present Illness Consult date: 04/30/23 Requesting physician: Rosario Tipton Reason for consult: other Chief complaint: Respiratory failure. History of present illness: Pulmonary consultation dated 04/30/2023. This is a 67-year-old male who was admitted back on April 23. He apparently has a history of hypertension, hyperlipidemia, diabetes, esophageal cancer, liver cirrhosis, and was admitted for a febrile illness. The patient has been in the hospital since that time, and yesterday, had a T11 through L3 decompression, for epidural abscess. The patient was brought back to the intensive care unit on the ventilator. We were consulted. The patient is currently on volume assist control, rate 16, tidal volume 450, FiO2 40%, PEEP of 5. Blood gases show pO2 of 121, pCO2 33, pH is 7.41. The patient is currently on propofol at 25 mcg/kg/m, saline at 50 mL an hour. The patient's also getting norepinephrine at 8 mcg/m. Today's postoperative day #1. There is no operative report in the chart. Laboratory data includes a white count 11.8, he will been 10.8, hematocrit 33.2, and platelet count 344,000. Sodium 136, potassium 4.2, chlorides 111, CO2 18, BUN 10, and creatinine 0.49. The rest of the comprehensive metabolic profile looks okay. Albumin is a bit low at 2.4. Culture data is thus far negative. Chest x-rays reviewed. Review of Systems REVIEW OF SYSTEMS: CONSTITUTIONAL: Fever. NEUROLOGIC: [ Negative.] HEENT: [ Negative.] CARDIAC: [Negative.] PULMONARY: [Negative.] GI: [Negative.] : [Negative.] RHEUMATOLOGIC: [ Negative.] IMMUNOLOGIC: [ Negative.] ENDOCRINE: [Negative. ] DERMATOLOGIC: [Negative.] Past Medical History Past Medical History: Diabetes Mellitus, GERD/Reflux, Hyperlipidemia, Hypertension, Osteoarthritis (OA) Additional Past Medical History / Comment(s): GOUT. LOWER BACK PAIN. HX OF COLON POLYP. ARTHRITIS KNEES. HX ESOPHAGEAL VARICES WITH BANDING. History of Any Multi-Drug Resistant Organisms: None Reported Past Surgical History: Cholecystectomy, Joint Replacement, Orthopedic Surgery Additional Past Surgical History / Comment(s): Surgery for deviated septum, bilateral cataracts removed, right knee arthroscopy, wisdom teeth removed, EGD with ESOPHAGEAL BANDS at [place], COLONOSCOPIES, left knee replacement. Past Anesthesia/Blood Transfusion Reactions: No Reported Reaction Additional Past Anesthesia/Blood Transfusion Reaction / Comment(s): Woke up once when IV infiltrated during EGD. Past Psychological History: No Psychological Hx Reported Smoking Status: Former smoker Past Alcohol Use History: Occasional Additional Past Alcohol Use History / Comment(s): STARTED SMOKING AT AGE 18, QUIT AT AGE 22, SMOKED 1/2 PPD. Past Drug Use History: None Reported - Past Family History Mother Family Medical History: No Reported History Medications and Allergies Home Medications Medication Instructions Recorded Confirmed Type Colesevelam [Welchol] 1,875 tab PO AC-SUPPER 09/18/14 04/23/23 History allopurinoL [Zyloprim] 300 mg PO DAILY 09/18/14 04/23/23 History Multivitamin/Iron/Folic Acid 1 tab PO DAILY 11/19/17 04/22/23 History [Centrum Adults Tablet] Omeprazole 20 mg PO BID 03/07/21 04/22/23 History Losartan Potassium 50 mg PO BID 10/10/21 04/22/23 History atenoloL [Tenormin] 50 mg PO DAILY 10/10/21 04/22/23 History Ascorbic Acid [Vitamin C] 1,000 mg PO DAILY 01/28/23 04/22/23 History Aspirin [Adult Low Dose Aspirin EC] 81 mg PO DAILY 01/28/23 04/22/23 History Cholecalciferol [Vitamin D3 (25 50 mcg PO DAILY 04/22/23 04/22/23 History Mcg = 1000 Iu)] Allergies Allergy/AdvReac Type Severity Reaction Status Date / Time Sulfa (Sulfonamide Allergy Rash/Hives Verified 04/29/23 14:18 Antibiotics) Physical Exam Osteopathic Statement: *. No significant issues noted on an osteopathic structural exam other than those noted in the History and Physical/Consult. Vitals: Vital Signs Temp Pulse Pulse Pulse Resp BP BP 04/30/23 09:45 102 H 22 04/30/23 09:30 99 20 04/30/23 09:15 98 20 116/64 04/30/23 09:00 95 20 04/30/23 08:45 98 18 04/30/23 08:30 96 22 04/30/23 08:18 92 04/30/23 08:15 93 16 122/61 04/30/23 08:05 91 04/30/23 08:00 99.3 F 91 18 04/30/23 07:55 04/30/23 07:45 89 17 04/30/23 07:30 89 17 04/30/23 07:15 89 17 107/61 04/30/23 07:00 85 18 95/52 04/30/23 06:50 84 16 95/52 04/30/23 06:40 86 16 95/52 04/30/23 06:30 87 19 95/52 04/30/23 06:20 85 16 95/52 04/30/23 06:10 87 19 95/52 04/30/23 06:00 90 18 114/67 04/30/23 05:50 89 17 114/67 04/30/23 05:40 87 18 114/67 04/30/23 05:30 85 18 114/67 04/30/23 05:20 86 17 114/67 04/30/23 05:10 91 17 114/67 04/30/23 05:00 89 18 04/30/23 04:50 89 17 04/30/23 04:40 87 18 113/70 04/30/23 04:30 80 16 113/70 04/30/23 04:20 80 16 113/70 04/30/23 04:10 80 16 113/70 04/30/23 04:00 97.8 F 85 19 103/61 04/30/23 03:50 80 17 103/61 04/30/23 03:40 79 17 04/30/23 03:30 82 19 04/30/23 03:20 77 16 103/61 04/30/23 03:10 79 16 103/61 04/30/23 03:00 78 16 126/65 04/30/23 02:50 82 18 126/65 04/30/23 02:40 75 16 126/65 04/30/23 02:30 76 16 126/65 04/30/23 02:20 75 16 126/65 04/30/23 02:10 75 16 126/65 04/30/23 02:00 75 16 106/66 04/30/23 01:50 74 16 106/66 04/30/23 01:40 74 16 106/66 04/30/23 01:30 74 16 106/66 04/30/23 01:20 74 16 106/66 04/30/23 01:10 74 16 106/66 04/30/23 01:00 73 16 107/62 04/30/23 00:50 74 16 107/62 04/30/23 00:40 75 16 107/62 04/30/23 00:36 74 16 107/62 04/30/23 00:30 77 16 107/62 04/30/23 00:20 78 16 107/62 04/30/23 00:10 79 16 107/62 04/30/23 00:03 04/30/23 00:00 97.6 F 79 16 121/74 04/29/23 23:50 80 16 04/29/23 23:40 80 16 121/74 04/29/23 23:30 80 17 121/74 04/29/23 23:20 80 18 121/74 04/29/23 23:10 82 20 121/74 04/29/23 23:00 78 16 110/63 04/29/23 22:50 77 16 110/63 04/29/23 22:49 04/29/23 22:40 77 16 105/56 04/29/23 22:30 77 16 105/56 04/29/23 22:20 77 16 105/56 04/29/23 22:10 78 16 105/56 04/29/23 22:00 97.5 F L 77 16 105/56 04/29/23 21:54 04/29/23 21:50 78 16 105/56 04/29/23 21:40 78 16 105/56 04/29/23 21:38 04/29/23 21:32 04/29/23 21:30 77 04/29/23 15:54 99 F 83 18 180/87 04/29/23 15:16 83 16 188/84 04/29/23 14:20 97.6 F 85 16 166/76 04/29/23 14:00 98.3 F 78 78 18 163/77 163/77 04/29/23 13:32 97.5 F L 83 16 165/79 04/29/23 13:19 98.1 F 82 18 138/72 04/29/23 12:16 98.0 F 79 18 161/78 04/29/23 11:56 97.6 F 87 18 142/76 04/29/23 11:46 98.7 F 88 16 136/78 Pulse Ox FiO2 04/30/23 09:45 97 04/30/23 09:30 98 04/30/23 09:15 99 04/30/23 09:00 98 04/30/23 08:45 97 04/30/23 08:30 97 04/30/23 08:18 04/30/23 08:15 99 04/30/23 08:05 04/30/23 08:00 97 50 04/30/23 07:55 40 04/30/23 07:45 98 04/30/23 07:30 99 04/30/23 07:15 99 04/30/23 07:00 99 04/30/23 06:50 99 04/30/23 06:40 99 04/30/23 06:30 100 04/30/23 06:20 99 04/30/23 06:10 97 04/30/23 06:00 97 04/30/23 05:50 97 04/30/23 05:40 98 04/30/23 05:30 99 04/30/23 05:20 98 04/30/23 05:10 98 04/30/23 05:00 97 04/30/23 04:50 97 04/30/23 04:40 97 04/30/23 04:30 100 04/30/23 04:20 99 04/30/23 04:10 99 04/30/23 04:00 98 50 04/30/23 03:50 99 04/30/23 03:40 99 04/30/23 03:30 100 04/30/23 03:20 99 40 04/30/23 03:10 99 04/30/23 03:00 99 04/30/23 02:50 98 04/30/23 02:40 100 04/30/23 02:30 99 04/30/23 02:20 100 04/30/23 02:10 100 04/30/23 02:00 100 04/30/23 01:50 100 04/30/23 01:40 100 04/30/23 01:30 100 04/30/23 01:20 100 04/30/23 01:10 100 04/30/23 01:00 100 04/30/23 00:50 100 04/30/23 00:40 99 04/30/23 00:36 100 04/30/23 00:30 100 04/30/23 00:20 99 04/30/23 00:10 99 04/30/23 00:03 40 04/30/23 00:00 100 50 04/29/23 23:50 99 04/29/23 23:40 99 04/29/23 23:30 100 04/29/23 23:20 100 04/29/23 23:10 98 04/29/23 23:00 99 04/29/23 22:50 99 04/29/23 22:49 50 04/29/23 22:40 100 04/29/23 22:30 99 04/29/23 22:20 100 04/29/23 22:10 99 04/29/23 22:00 99 50 04/29/23 21:54 50 04/29/23 21:50 100 04/29/23 21:40 100 04/29/23 21:38 100 04/29/23 21:32 100 04/29/23 21:30 100 04/29/23 15:54 95 04/29/23 15:16 97 04/29/23 14:20 95 04/29/23 14:00 98 04/29/23 13:32 98 04/29/23 13:19 96 04/29/23 12:16 96 04/29/23 11:56 95 04/29/23 11:46 97 Intake and Output 04/29/23 04/30/23 04/30/23 22:59 06:59 14:59 Intake Total 2462 1452.898 523.508 Output Total 1690 310 45 Balance 772 1142.898 478.508 Intake: IV 2152 400 150 KVO 400 50 ns 100 Intake, IV Titration 1052.898 313.508 Amount Lactated Ringers 1,000 ml 1000 @ 0 mls/hr IV .STK-MED ONE Rx#:[id number] Magnesium Sulfate-D5w Pmx 100 1 gm In Dextrose/Water 1 100ml.bag @ 100 mls/hr IVPB Q1H MARIO Rx#: [id number] Norepinephrine 4 mg In 52.898 76.031 Sodium Chloride 0.9% 250 ml @ 0.03 MCG/KG/MIN 8. 915 mls/hr IV .Q24H MARIO Rx#:[id number] ceFAZolin 2 gm In Sodium 50 Chloride 0.9% 50 ml @ 100 mls/hr IVPB Q8HR MARIO Rx# :[id number] propofoL 1,000 mg In 87.477 Empty Bag 1 bag @ 15 MCG/ KG/MIN 7.02 mls/hr IV . [id number] MARIO Rx#:[id number] Blood Product 310 Rc As-1 Unit 310 [id number] Other 60 Output: Drainage 80 125 Right Back 80 125 Urine 1210 185 45 Estimated Blood Loss 400 Other: Voiding Method Indwelling Catheter Indwelling Catheter Weight 90.1 kg ABP, PAP, CO, CI - Last 8 Hours Arterial Blood Pressure 115/48 Arterial Blood Pressure 138/53 Arterial Blood Pressure 133/55 Arterial Blood Pressure 145/56 Arterial Blood Pressure 115/52 Arterial Blood Pressure 113/53 Arterial Blood Pressure 124/55 Arterial Blood Pressure 111/50 Arterial Blood Pressure 128/53 Arterial Blood Pressure 110/49 Arterial Blood Pressure 111/50 Arterial Blood Pressure 107/48 Arterial Blood Pressure 110/48 Arterial Blood Pressure 118/52 Arterial Blood Pressure 98/45 Arterial Blood Pressure 84/42 Arterial Blood Pressure 78/41 Arterial Blood Pressure 107/48 Arterial Blood Pressure 111/49 Arterial Blood Pressure 104/46 Arterial Blood Pressure 109/48 Arterial Blood Pressure 123/53 Arterial Blood Pressure 134/60 Arterial Blood Pressure 129/60 Arterial Blood Pressure 149/66 Arterial Blood Pressure 134/62 Arterial Blood Pressure 137/62 Arterial Blood Pressure 138/65 Arterial Blood Pressure 133/60 Arterial Blood Pressure 133/59 Arterial Blood Pressure 144/70 Arterial Blood Pressure 124/56 Arterial Blood Pressure 98/48 Arterial Blood Pressure 107/50 Arterial Blood Pressure 158/78 Arterial Blood Pressure 130/62 Arterial Blood Pressure 127/60 Arterial Blood Pressure 124/58 Arterial Blood Pressure 119/55 No acute distress, sedated, with an orally placed endotracheal tube. HEENT examination is grossly unremarkable. Neck supple. Full range of motion. No adenopathy thyromegaly or neck vein distention. Cardiovascular examination reveals regular rhythm rate. S1-S2 normal. No S3 or S4. No discernible murmur noted. Heart rate 99 bpm. Heart sounds are distant. Lungs reveal mostly clear breath sounds. Minimal scattered rhonchi. No wheezes or crackles. Breath sounds equal. Saturations 97%. Abdomen soft without bowel sounds. No masses. Extremities are intact. No cyanosis clubbing or edema. Skin is without rash or lesion. Neurologic examination cannot be assessed at this time. Results - Laboratory Findings CBC and BMP: 04/30/23 05:01 04/30/23 05:01 ABG ABG pH 7.41 (7.35-7.45) 04/30/23 06:26 ABG pCO2 33 mmHg (35-45) L 04/30/23 06:26 ABG pO2 121 mmHg (83-108) H 04/30/23 06:26 ABG O2 Saturation 98.7 % (94-97) H 04/30/23 06:26 PT/INR, D-dimer PT 13.0 sec (10.0-12.5) H 04/30/23 05:01 INR 1.2 (<1.2) H 04/30/23 05:01 Abnormal lab findings: Abnormal Labs 04/22/23 04/23/23 04/23/23 23:00 05:52 10:36 WBC RBC 3.03 L Hgb 8.1 L Hct 25.4 L MCH MCHC RDW 17.5 H Plt Count 139 L Neutrophils # Lymphocytes # 0.8 L ESR PT INR ABG pCO2 ABG pO2 ABG HCO3 ABG O2 Saturation Sodium Potassium Chloride Carbon Dioxide Anion Gap BUN Creatinine BUN/Creatinine Ratio Glucose POC Glucose (mg/dL) 136 H 138 H Calcium Magnesium AST Alkaline Phosphatase C-Reactive Protein Total Protein Albumin Globulin Albumin/Globulin Ratio Fluid Appearance Crossmatch 04/23/23 04/23/23 04/23/23 10:36 10:36 10:36 WBC RBC Hgb Hct MCH MCHC RDW Plt Count Neutrophils # Lymphocytes # ESR 62 H PT INR ABG pCO2 ABG pO2 ABG HCO3 ABG O2 Saturation Sodium 133 L Potassium 3.1 L Chloride 108 H Carbon Dioxide 18 L Anion Gap BUN Creatinine 0.52 L BUN/Creatinine Ratio Glucose 122 H POC Glucose (mg/dL) Calcium 7.8 L Magnesium AST Alkaline Phosphatase C-Reactive Protein 6.7 H Total Protein Albumin Globulin Albumin/Globulin Ratio Fluid Appearance Crossmatch 04/23/23 04/23/23 04/23/23 12:19 16:31 16:36 WBC RBC Hgb Hct MCH MCHC RDW Plt Count Neutrophils # Lymphocytes # ESR PT INR ABG pCO2 ABG pO2 ABG HCO3 ABG O2 Saturation Sodium Potassium Chloride Carbon Dioxide Anion Gap BUN Creatinine BUN/Creatinine Ratio Glucose POC Glucose (mg/dL) 121 H 134 H Calcium Magnesium AST Alkaline Phosphatase C-Reactive Protein Total Protein Albumin Globulin Albumin/Globulin Ratio Fluid Appearance Hazy A Crossmatch 04/23/23 04/24/23 04/24/23 21:24 06:07 06:47 WBC RBC Hgb Hct MCH MCHC RDW Plt Count Neutrophils # Lymphocytes # ESR PT INR ABG pCO2 ABG pO2 ABG HCO3 ABG O2 Saturation Sodium 135 L Potassium 3.3 L Chloride 110 H Carbon Dioxide 17 L Anion Gap BUN 8 L Creatinine 0.50 L BUN/Creatinine Ratio Glucose 108 H POC Glucose (mg/dL) 186 H 113 H Calcium 8.1 L Magnesium AST Alkaline Phosphatase C-Reactive Protein 6.2 H Total Protein Albumin Globulin Albumin/Globulin Ratio Fluid Appearance Crossmatch 04/24/23 04/24/23 04/24/23 06:47 12:26 16:25 WBC RBC 3.22 L Hgb 8.7 L Hct 27.5 L MCH MCHC RDW 17.4 H Plt Count Neutrophils # Lymphocytes # 0.8 L ESR PT INR ABG pCO2 ABG pO2 ABG HCO3 ABG O2 Saturation Sodium Potassium Chloride Carbon Dioxide Anion Gap BUN Creatinine BUN/Creatinine Ratio Glucose POC Glucose (mg/dL) 116 H 119 H Calcium Magnesium AST Alkaline Phosphatase C-Reactive Protein Total Protein Albumin Globulin Albumin/Globulin Ratio Fluid Appearance Crossmatch 04/24/23 04/25/23 04/25/23 20:11 05:41 06:03 WBC RBC Hgb Hct MCH MCHC RDW Plt Count Neutrophils # Lymphocytes # ESR PT INR ABG pCO2 ABG pO2 ABG HCO3 ABG O2 Saturation Sodium Potassium Chloride Carbon Dioxide 14.9 L Anion Gap 12.10 H BUN 5.3 L Creatinine BUN/Creatinine Ratio 8.83 L Glucose 114 H POC Glucose (mg/dL) 168 H 118 H Calcium 8.4 L Magnesium AST Alkaline Phosphatase C-Reactive Protein Total Protein Albumin Globulin Albumin/Globulin Ratio Fluid Appearance Crossmatch 04/25/23 04/25/23 04/25/23 11:24 17:02 20:54 WBC RBC Hgb Hct MCH MCHC RDW Plt Count Neutrophils # Lymphocytes # ESR PT INR ABG pCO2 ABG pO2 ABG HCO3 ABG O2 Saturation Sodium Potassium Chloride Carbon Dioxide Anion Gap BUN Creatinine BUN/Creatinine Ratio Glucose POC Glucose (mg/dL) 154 H 146 H 191 H Calcium Magnesium AST Alkaline Phosphatase C-Reactive Protein Total Protein Albumin Globulin Albumin/Globulin Ratio Fluid Appearance Crossmatch 04/26/23 04/26/23 04/26/23 05:19 05:20 05:20 WBC RBC 3.49 L Hgb 9.5 L Hct 29.5 L MCH MCHC RDW 18.2 H Plt Count Neutrophils # Lymphocytes # ESR PT INR ABG pCO2 ABG pO2 ABG HCO3 ABG O2 Saturation Sodium Potassium Chloride 114 H Carbon Dioxide 14 L Anion Gap BUN 5 L Creatinine 0.47 L BUN/Creatinine Ratio Glucose 110 H POC Glucose (mg/dL) 124 H Calcium 8.3 L Magnesium AST Alkaline Phosphatase C-Reactive Protein Total Protein Albumin Globulin Albumin/Globulin Ratio Fluid Appearance Crossmatch 04/26/23 04/26/23 04/26/23 11:16 17:51 22:26 WBC RBC Hgb Hct MCH MCHC RDW Plt Count Neutrophils # Lymphocytes # ESR PT INR ABG pCO2 ABG pO2 ABG HCO3 ABG O2 Saturation Sodium Potassium Chloride Carbon Dioxide Anion Gap BUN Creatinine BUN/Creatinine Ratio Glucose POC Glucose (mg/dL) 127 H 127 H 138 H Calcium Magnesium AST Alkaline Phosphatase C-Reactive Protein Total Protein Albumin Globulin Albumin/Globulin Ratio Fluid Appearance Crossmatch 04/27/23 04/27/23 04/27/23 05:36 10:47 20:45 WBC RBC Hgb Hct MCH MCHC RDW Plt Count Neutrophils # Lymphocytes # ESR PT INR ABG pCO2 ABG pO2 ABG HCO3 ABG O2 Saturation Sodium Potassium Chloride Carbon Dioxide Anion Gap BUN Creatinine BUN/Creatinine Ratio Glucose POC Glucose (mg/dL) 175 H 120 H 114 H Calcium Magnesium AST Alkaline Phosphatase C-Reactive Protein Total Protein Albumin Globulin Albumin/Globulin Ratio Fluid Appearance Crossmatch 04/28/23 04/28/23 04/28/23 08:46 08:46 11:00 WBC RBC 3.66 L Hgb 9.6 L Hct 31.1 L MCH 26.2 L MCHC 30.9 L RDW 19.9 H Plt Count Neutrophils # Lymphocytes # ESR PT INR ABG pCO2 ABG pO2 ABG HCO3 ABG O2 Saturation Sodium Potassium 3.4 L Chloride Carbon Dioxide 18.5 L Anion Gap BUN 6.2 L Creatinine BUN/Creatinine Ratio 8.86 L Glucose 157 H POC Glucose (mg/dL) 176 H Calcium 8.5 L Magnesium AST 40 H Alkaline Phosphatase 196 H C-Reactive Protein Total Protein Albumin 3.0 L Globulin 3.5 H Albumin/Globulin Ratio 0.86 L Fluid Appearance Crossmatch 04/28/23 04/28/23 04/28/23 14:50 16:41 21:16 WBC RBC Hgb Hct MCH MCHC RDW Plt Count Neutrophils # Lymphocytes # ESR PT INR ABG pCO2 ABG pO2 ABG HCO3 ABG O2 Saturation Sodium Potassium Chloride Carbon Dioxide Anion Gap BUN Creatinine BUN/Creatinine Ratio Glucose POC Glucose (mg/dL) 139 H 132 H Calcium Magnesium AST Alkaline Phosphatase C-Reactive Protein Total Protein Albumin Globulin Albumin/Globulin Ratio Fluid Appearance Crossmatch See Detail 04/29/23 04/29/23 04/29/23 05:52 06:07 06:07 WBC RBC 3.26 L Hgb 8.4 L Hct 27.4 L MCH 25.8 L MCHC 30.7 L RDW 20.1 H Plt Count Neutrophils # Lymphocytes # ESR PT INR ABG pCO2 ABG pO2 ABG HCO3 ABG O2 Saturation Sodium Potassium Chloride Carbon Dioxide 20.8 L Anion Gap BUN 6.1 L Creatinine 0.5 L BUN/Creatinine Ratio Glucose POC Glucose (mg/dL) 115 H Calcium 8.4 L Magnesium AST Alkaline Phosphatase 189 H C-Reactive Protein Total Protein 6.0 L Albumin 2.8 L Globulin Albumin/Globulin Ratio 0.88 L Fluid Appearance Crossmatch 04/29/23 04/29/23 04/29/23 11:11 13:45 14:38 WBC RBC 3.85 L Hgb 10.4 L Hct 32.7 L MCH MCHC RDW 18.1 H Plt Count Neutrophils # Lymphocytes # ESR PT INR ABG pCO2 ABG pO2 ABG HCO3 ABG O2 Saturation Sodium Potassium Chloride Carbon Dioxide Anion Gap BUN Creatinine BUN/Creatinine Ratio Glucose POC Glucose (mg/dL) 119 H 111 H Calcium Magnesium AST Alkaline Phosphatase C-Reactive Protein Total Protein Albumin Globulin Albumin/Globulin Ratio Fluid Appearance Crossmatch 04/29/23 04/29/23 04/29/23 17:49 18:00 18:00 WBC RBC 3.93 L Hgb 11.0 L Hct 33.1 L MCH MCHC RDW 17.6 H Plt Count Neutrophils # Lymphocytes # ESR PT INR ABG pCO2 26 L ABG pO2 218 H ABG HCO3 16 L ABG O2 Saturation >100.0 H Sodium 136 L Potassium Chloride 111 H Carbon Dioxide 19 L Anion Gap BUN 7 L Creatinine 0.40 L BUN/Creatinine Ratio Glucose POC Glucose (mg/dL) Calcium 7.9 L Magnesium AST Alkaline Phosphatase C-Reactive Protein Total Protein Albumin Globulin Albumin/Globulin Ratio Fluid Appearance Crossmatch 04/29/23 04/29/23 04/29/23 21:34 21:46 21:46 WBC RBC 3.29 L Hgb 9.2 L D Hct 28.1 L MCH MCHC RDW 17.7 H Plt Count Neutrophils # Lymphocytes # ESR PT INR ABG pCO2 ABG pO2 ABG HCO3 ABG O2 Saturation Sodium 136 L Potassium Chloride 112 H Carbon Dioxide 19 L Anion Gap BUN 8 L Creatinine 0.52 L BUN/Creatinine Ratio Glucose 105 H POC Glucose (mg/dL) 121 H Calcium 7.3 L Magnesium AST Alkaline Phosphatase C-Reactive Protein Total Protein Albumin Globulin Albumin/Globulin Ratio Fluid Appearance Crossmatch 04/29/23 04/30/23 04/30/23 21:49 00:30 05:01 WBC RBC Hgb Hct MCH MCHC RDW Plt Count Neutrophils # Lymphocytes # ESR PT 13.0 H INR 1.2 H ABG pCO2 ABG pO2 383 H ABG HCO3 ABG O2 Saturation 99.9 H Sodium Potassium Chloride Carbon Dioxide Anion Gap BUN Creatinine BUN/Creatinine Ratio Glucose POC Glucose (mg/dL) 126 H Calcium Magnesium AST Alkaline Phosphatase C-Reactive Protein Total Protein Albumin Globulin Albumin/Globulin Ratio Fluid Appearance Crossmatch 04/30/23 04/30/23 04/30/23 05:01 05:01 06:26 WBC 11.8 H RBC 3.87 L Hgb 10.8 L Hct 33.2 L MCH MCHC RDW 17.8 H Plt Count Neutrophils # 8.5 H Lymphocytes # ESR PT INR ABG pCO2 33 L ABG pO2 121 H ABG HCO3 ABG O2 Saturation 98.7 H Sodium 136 L Potassium Chloride 111 H Carbon Dioxide 18 L Anion Gap BUN Creatinine 0.49 L BUN/Creatinine Ratio Glucose 114 H POC Glucose (mg/dL) Calcium 7.6 L Magnesium 1.3 L AST Alkaline Phosphatase 173 H C-Reactive Protein Total Protein 5.9 L Albumin 2.4 L Globulin Albumin/Globulin Ratio Fluid Appearance Crossmatch 04/30/23 06:30 WBC RBC Hgb Hct MCH MCHC RDW Plt Count Neutrophils # Lymphocytes # ESR PT INR ABG pCO2 ABG pO2 ABG HCO3 ABG O2 Saturation Sodium Potassium Chloride Carbon Dioxide Anion Gap BUN Creatinine BUN/Creatinine Ratio Glucose POC Glucose (mg/dL) 120 H Calcium Magnesium AST Alkaline Phosphatase C-Reactive Protein Total Protein Albumin Globulin Albumin/Globulin Ratio Fluid Appearance Crossmatch - Diagnostic Findings Chest x-ray: image reviewed Assessment and Plan Assessment: Postop day #1, status post T11 through L3 decompression for epidural abscess. Routine postoperative ventilator management. Streptococcal bacteremia. Septic joint, left knee. History of esophageal varices. History of liver cirrhosis and ascites. History of gastroesophageal reflux disease. Diabetes mellitus. History of left TKA. History of hypertension. History of hyperlipidemia. History of gout. History of chronic alcohol use. Plan: Plan dated 04/30/2023. The patient had surgery yesterday. The patient came back to the intensive care unit on the ventilator. Currently, the patient's on propofol at 25 mcg/kg/m, saline IV at 50 mL an hour, and norepinephrine at 8 mcg/m. Blood gases are reasonable show a mixed acid-base disturbance, including a mild respiratory alkalosis and mild metabolic acidosis. PH is normal. The patient continues on Ancef as an antibiotic. Labs, x-rays, medications are reviewed. We will attempt a daily interruption of sedation, and possibly a spontaneous breathing trial. No additional recommendations are made. Prognosis is guarded. We will continue to follow the patient, and make recommendations along the way. Time with Patient: Greater than 30
--- NOTE | 2023-04-30 11:00 | P.OP ---
Date of Procedure: 04/29/23 Preoperative Diagnosis: Current Active Problems Lumbar spondylosis with myelopathy (Acute) Sepsis (Acute) Discitis of lumbar region (Acute) Abscess in epidural space of lumbar spine (Acute) Bacteremia due to Streptococcus (Acute) Allergy to sulfa drugs (Acute) Septic arthritis of knee, left (Acute) Postoperative Diagnosis: Current Active Problems Lumbar spondylosis with myelopathy (Acute) Sepsis (Acute) Discitis of lumbar region (Acute) Abscess in epidural space of lumbar spine (Acute) Bacteremia due to Streptococcus (Acute) Allergy to sulfa drugs (Acute) Septic arthritis of knee, left (Acute) Procedure(s) Performed: 23295 Arthrodesis, combined posterior or posterolateral technique with posterior interbody technique including laminectomy and/or discectomy sufficient to prepare interspace (other than for decompression), single interspace, lumbar 1-2 24154 Laminectomy for biopsy/excision of intraspinal neoplasm; extradural, lumbar 1-2 EPIDRUAL MASS/ABSCESS 53489 Laminectomy, facetectomy and foraminotomy (unilateral or bilateral with decompression of spinal cord, cauda equina and/or nerve root[s], [eg, spinal or lateral recess stenosis]), single vertebral segment; LUMBAR 2-3 12082 Laminectomy, facetectomy and foraminotomy (unilateral or bilateral with decompression of spinal cord, cauda equina and/or nerve root[s], [eg, spinal or lateral recess stenosis]), single vertebral segment; each additional vertebral segment, THORACIC 12-LUMBAR1 29798 Posterior segmental instrumentation (eg, pedicle fixation, dual rods with multiple hooks and sublaminar wires); 7 to 12 vertebral segments; T10-L4 [id number] Arthrodesis, posterior or posterolateral technique, single interspace; each additional interspace; T10-L4, NOT L1-2 73621 Insertion of interbody biomechanical device(s) (eg, synthetic cage, mesh) with integral anterior instrumentation for device anchoring (eg, screws, flanges), when performed, to intervertebral disc space in conjunction with interbody arthrodesis, each interspace; LUMBAR 1-2 86020 Insertion of intervertebral biomechanical device(s) (eg, synthetic cage, mesh) with integral anterior instrumentation for device anchoring (eg, screws, flanges), when performed, to vertebral corpectomy(ies) (vertebral body resection, partial or complete) defect, in conjunction with interbody arthrodesis, each contiguous defect; LUMBAR 1-2 FOR DISCITIS USE OF IONM, ALL SCREWS TESTING > 20mA Implants: -MARLA EVEREST RODS AND SCREWS -LIFE SPINE PROLIFT CAGE -STIMULAN -MAGNATOS -CONTOUR XL -ARTHROCELL Anesthesia: GETA Surgeon: Guillaume Narayanan Pediatric Medical Assistant #1: Gamaliel Ferraro (WAS PRESENT AND ASSISTED WITH ALL ASPECTS OF THE CASE FROM POSITION TO CLOSURE) Estimated Blood Loss (ml): 450 IV fluids (ml): 2,000 Urine output (ml): 500 Pathology: none sent Condition: stable Disposition: ICU Indications for Procedure: Patient was seen and examined today Dion Kennedy is a 67-year-old male presenting for evaluation of fevers chills low back pain mid back pain and knee pain. It was my pleasure to have seen and examined Dion Kennedy. In our visit today we have had a chance to go over subjective complaints, physical examination findings and treatments including the natural course history without intervention and various interventional options. 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 Stenosis related to this large anterior epidural phlegmon present. Erosion of disc spaces noted. Unrelated L4 5 L5-S1 spondylolisthesis grade 1 with bilateral foraminal and central stenosis related. On physical exam, Dion Kennedy demonstrates weakness in hip flexion bilaterally 3+. 5 out of 5 dorsiflexion plantar flexion bilaterally. 4 out of 5 knee flexion and extension bilaterally. Decreased sensation over the thighs and anterior shins. No clonus no Babinski's negative Diana's no long tract signs I have explained to the patient that as their condition progresses it will cause further neurological deficits and eventual paralysis. Based on the patients imaging, physical exam, and the rapid progression and disabling nature of their symptoms, at this time I recommend surgery in the form or a: T11 L3 decompression with epidural phlegmon evacuation and stabilization. I discussed the risk and benefits of this procedure at length with Dion Kennedy. The patient agreed to considered pursuing the procedure abovementioned. Prior to surgery, she should follow up with her PCP (Cardio, ID, IM etc) for clearance. Questions were invited and answered, and the patient wishes to proceed as outlined below. Currently, I am recommendin. T11 to L3 decompression with epidural phlegmon evacuation and stabilization Description of Procedure: I49-Dlcnvd Decompression and fusion FIDEL The patient was seen and examined in the preoperative area. All preoperative protocols were followed. Informed consent was obtained, risks and benefits of the procedure were discussed at length. Risks including bleeding infection damage to the surrounding tissue and risk of re-operation were discussed with the patient. Risk of anesthesia up to and including was discussed with the patient. These are outlined in the risk review. They were willing to accept these risks and all the risks of surgery. The patient was given a weight-based dose of antibiotics in the form of 3 g Ancef. The patient was seen and evaluated by the anesthesia team who deemed them fit for surgery. The site was marked, the patient was willing to proceed with the procedure. The patient was transferred to the operative suite by the Department of anesthesia. They were then drifted off to sleep by the department anesthesia and GETA was performed. The patient tolerated this well. Truong catheter was placed by nursing staff, a-traumatically. Once confirmation of lines and ventilation the patient was transferred to a prone Trios spine table very caref ully. The head was secured and stable. Xray confirmed alignment. All bony prominences including wrists, elbows, axilla, chest, hips, and thighs, and feet were padded very well. Special attention was paid to the genitalia, and these were padded accordingly. SCDs were placed on bilateral lower extremities and were connected. Arms were well padded and placed at 90/90 up and out and well padded. Safety strap and tape placed on the patient. Once in position, again we confirmed good ventilation capabilities and that lines were running appropriately. The patients lumbosacral pelvic was then exposed. Hair was removed for incision. 1010s were placed outlining the incision site. Standard alcohol was used to clean the incision site and allowed to dry. C-arm was used to bio-afua the patient and confirm level for incision which was marked with a skin marker. Operative briefing was performed with all teams and everyone in agreement to proceed. The patient was then prepped and draped in a normal sterile fashion. Timeout was then performed, and all parties agreed with the procedure to be performed. Midline skin incision was then made over the previously bookmarked area and dissection taken down to the lumbosacral fascia which was identified and cleaned with a anna. Once midline was identified, fasciotomy was made over the SP of T10-L4 Subperiosteal dissection was then taken down over the lamina and facet joints and TPs were exposed and trough made posterolateral. TPs were then decorticated L1-L4 and sacral ala with a high speed anton for lateral fusion. Dissection was taken out over the sacrum to the pelvis. SI joint identified and modified Koroma starting point for pelvic screws identified as well. Retractors placed. Wound was irrigated and lateral image with penfield 4 placed at the pars of L4 confirmed levels for operation. SP clamp was then placed for the Lagiar navigation tracker and secured at L3 for the first set of screws. The wound was then filled with NSS and Z-drape placed. A 3D Zhiem spin was then obtained and registered. Once confirmation of accuracy screws were then placed from T10-L2 using navigation. Navigated high speed anton was used to make a towboat pilot hole followed by a navigated awl-tap passed through the pedicle into the body. A ball tip probe then confirmed within the pedicle. Screws then measured and placed using a navigated screwdriver. After screws were placed from T10-L2 navigation had issues so we switched to freehand technique with high speed anton, pedicle finder, feeler and screw placement with lateral fluoro imaging. Screws were placed b/l L2-[address] AP imaging confirmed screw placement after this at all levels. Screws were then tested, and reliably tested screws tested above 20 mA. The wound was irrigated and attention was turned to decompression, correction and interbody fusion. Bilateral laminectomy, complete facetectomy and foraminotomy was then done from T12-L3 for complete decompression at the levels of the abscess. The abscess was then idendified anterior to the thecal sac at L1-2 and it tracked superiorly up to T12 and down to the mid body of L2. There was gross purulence in this area and so biopsy was taken of this epidural mass as well as cultures to confirm abscess and treatment abx. We then carefully protected the neural elements and access the L1-2 disc space which was extremely unstable. Temporary jose luis was placed contralateral to working side. We then accessed the disc space bilaterally and performed complete discectomy, abscess and phlegmon evacuation from L1-2 space as well. Osteotome, bob and curettes were used to remove this material. Biopsy and cultures of L1-2 disc space sent as well at this time. Abx irrigation was then run through the disc space 6L using a laparascopic pipe finisher. We then, while protecting neural elements, placed MagnetOs and Arthrocell anterior in the disc space and impacted it. A cage was then selected and placed on the left side at this level and expanded to meet the endplates and elevate and restore height, alignment and lordosis. The cage was stable and tested. We then on the contralateral side placed stimulan into the disc space which was impregnated with Tobramycin and vancomycin. This filled the remaining voids in the disc space and hardened for structural support and abx delivery. Once this was accomplished we checked the other implicated interbody levels. L2-3 showed some signs of instability, but no signs of abscess in the disc space and so this was left alone. We then copiously irrigated the wound. Attention was then drawn to jose luis placement and further reduction. Rods were selected, measured, cut and bent to appropriate lordosis. They were then secured into b/l L4. Sequential reduction then done into each screw and set screw placed. Set screws were then final tightened. Once rods were secured, cross links were selected and placed and final tightened. The wound was then irrigated with 3L Ancef irrigation, 3L gentamicin irrigation and 3L NSS. Surgicel was then placed on the dura, which was inspected and had no injury. Then, in the posterolateral gutter was placed, MagnatOs, Autograft and allograft. This was impacted into position and surgical placed over it. 2g Vanco powder was then placed deep in the wound. Two deep, subfascial drains were placed and secured with a stitch. We then proceeded with layered closure. #1 PDS placed in the deep fascia followed by a running unidirectional 0 stratafix. 0 Vicryl placed in the deep subq, 2-0 placed in the superficial subq and akleb placed in the skin. The wound edges approximated very well. The wound was then cleaned with ETOH and dressed with optifoam dressing, drain sponges and tegaderms. Drains sewed into position. IONM confirmed no changes. The patient was then transferred off the [facility] spine table to their hospital bed a-traumatically. Drains continued to hold suction. The patient was then extubated and transferred to the ICU in stable condition having tolerated the procedure with no complications.
--- NOTE | 2023-04-30 12:01 | FL ---
Fluoroscopy INDICATION: Pain FINDINGS: Fluoroscopy time: 51 seconds. Total dose area product (DAP) in uGy*m?, mGy*cm? (or similar): 4689.87 Images obtained: 0. IMPRESSION: 1. Documentation of fluoroscopy.
--- NOTE | 2023-04-30 12:36 | P.PN ---
Subjective Progress Note Date: 04/30/23 Principal diagnosis: Reason for follow-up with Streptococcus bacteremia and concern for possible left knee septic arthritis Patient is a 67-year-old male with a past medical history significant for chronic alcoholism cirrhosis diabetes mellitus reflux in this patient who did have a left knee arthroplasty done by Dr. Bishop patient recently presented to [facility] about a week ago for evaluation of fever patient did have Streptococcus agalactiae bacteremia and the patient was noticed to have some swelling to the left knee s/p aspirate with a white count of 20,000 concerning for septic need for the patient was transferred to [facility] to be evaluated by his orthopedic surgeon.Patient did have an MRI of the lumbar spine suspicious for epidural abscess from T12-L2 and possible discitis L1-L2 MRI cervical spine no epidural abscess MRI thoracic spine tissues extension of the abscess to the T11 vertebra. Patient is status post laminectomy and drainage of the epidural abscess and implant of rods and screws life spine provide left cage, procedure completed on 04/29/2023. On today's evaluation that is 04/30/2023 patient is afebrile patient is currently intubated on the vent postprocedure with FiO2 of 50% patient did have borderline blood pressure and is requiring low-dose pressor support no significant purulent secretions through the ET or any other changes reported. Patient white count of 11.8, creatinine 0.49 OR cultures currently pending Objective - Vital Signs Vital signs: Vital Signs Temp 99.5 F 04/30/23 12:00 Pulse 98 04/30/23 12:15 Resp 20 04/30/23 12:15 BP 108/72 04/30/23 12:15 Pulse Ox 95 04/30/23 12:15 FiO2 50 04/30/23 12:00 Intake & Output 04/29/23 04/30/23 04/30/23 18:59 06:59 18:59 Intake Total 2822 1452.898 832.884 Output Total 825 1500 90 Balance 199647. 742.884 Weight 78 kg 90.1 kg Intake: IV 2152 400 300 KVO 400 50 ns 250 Intake, IV Titration 50 1052.898 442.884 Amount Lactated Ringers 1,000 ml 1000 @ 0 mls/hr IV .[id number] Rx#:[id number] Magnesium Sulfate-D5w Pmx 200 1 gm In Dextrose/Water 1 100ml.bag @ 100 mls/hr IVPB Q1H [facility] Rx#: [id number] Norepinephrine 4 mg In 52.898 92.377 Sodium Chloride 0.9% 250 ml @ 0.03 MCG/KG/MIN 8. 915 mls/hr IV .Q24H [facility] Rx#:[id number] ceFAZolin 2 gm In Sodium 50 50 Chloride 0.9% 50 ml @ 100 mls/hr IVPB Q8HR [facility] Rx# :[id number] propofoL 1,000 mg In 100.507 Empty Bag 1 bag @ 15 MCG/ KG/MIN 7.02 mls/hr IV . [id number] [facility] Rx#:[id number] Blood Product 620 Rc As-1 Unit 310 [id number] Rc As-1 Unit 310 [id number] Other 90 Output: Drainage 205 Right Back 205 Urine 825 895 90 Estimated Blood Loss 400 Other: Voiding Method Indwelling Catheter ABP, PAP, CO, CI - Last Documented Arterial Blood Pressure 87/45 - Exam GENERAL DESCRIPTION: An elderly male intubated on the vent RESPIRATORY SYSTEM: Unlabored breathing , decreased breath sounds at bases HEART: S1 S2 regular rate and rhythm , ABDOMEN: Soft , no tenderness EXTREMITIES: No edema feet - Labs CBC & Chem 7: 04/30/23 05:01 04/30/23 05:01 Labs: Abnormal Lab Results - Last 24 Hours (Table) 04/28/23 04/29/23 04/29/23 Range/Units 14:50 13:45 14:38 WBC (3.8-10.6) k/uL RBC 3.85 L (4.30-5.90) m/uL Hgb 10.4 L (13.0-17.5) gm/dL Hct 32.7 L (39.0-53.0) % RDW 18.1 H (11.5-15.5) % Neutrophils # (1.3-7.7) k/uL PT (10.0-12.5) sec INR (<1.2) ABG pCO2 (35-45) mmHg ABG pO2 (83-108) mmHg ABG HCO3 (21-25) mmol/L ABG O2 Saturation (94-97) % Sodium (137-145) mmol/L Chloride (98-107) mmol/L Carbon Dioxide (22-30) mmol/L BUN (9-20) mg/dL Creatinine (0.66-1.25) mg/dL Glucose (74-99) mg/dL POC Glucose (mg/dL) 111 H (70-110) mg/dL Calcium (8.4-10.2) mg/dL Magnesium (1.6-2.3) mg/dL Alkaline Phosphatase (38-126) U/L Total Protein (6.3-8.2) g/dL Albumin (3.5-5.0) g/dL Crossmatch See Detail 04/29/23 04/29/23 04/29/23 Range/Units 17:49 18:00 18:00 WBC (3.8-10.6) k/uL RBC 3.93 L (4.30-5.90) m/uL Hgb 11.0 L (13.0-17.5) gm/dL Hct 33.1 L (39.0-53.0) % RDW 17.6 H (11.5-15.5) % Neutrophils # (1.3-7.7) k/uL PT (10.0-12.5) sec INR (<1.2) ABG pCO2 26 L (35-45) mmHg ABG pO2 218 H (83-108) mmHg ABG HCO3 16 L (21-25) mmol/L ABG O2 Saturation >100.0 H (94-97) % Sodium 136 L (137-145) mmol/L Chloride 111 H (98-107) mmol/L Carbon Dioxide 19 L (22-30) mmol/L BUN 7 L (9-20) mg/dL Creatinine 0.40 L (0.66-1.25) mg/dL Glucose (74-99) mg/dL POC Glucose (mg/dL) (70-110) mg/dL Calcium 7.9 L (8.4-10.2) mg/dL Magnesium (1.6-2.3) mg/dL Alkaline Phosphatase (38-126) U/L Total Protein (6.3-8.2) g/dL Albumin (3.5-5.0) g/dL Crossmatch 04/29/23 04/29/23 04/29/23 Range/Units 21:34 21:46 21:46 WBC (3.8-10.6) k/uL RBC 3.29 L (4.30-5.90) m/uL Hgb 9.2 L D (13.0-17.5) gm/dL Hct 28.1 L (39.0-53.0) % RDW 17.7 H (11.5-15.5) % Neutrophils # (1.3-7.7) k/uL PT (10.0-12.5) sec INR (<1.2) ABG pCO2 (35-45) mmHg ABG pO2 (83-108) mmHg ABG HCO3 (21-25) mmol/L ABG O2 Saturation (94-97) % Sodium 136 L (137-145) mmol/L Chloride 112 H (98-107) mmol/L Carbon Dioxide 19 L (22-30) mmol/L BUN 8 L (9-20) mg/dL Creatinine 0.52 L (0.66-1.25) mg/dL Glucose 105 H (74-99) mg/dL POC Glucose (mg/dL) 121 H (70-110) mg/dL Calcium 7.3 L (8.4-10.2) mg/dL Magnesium (1.6-2.3) mg/dL Alkaline Phosphatase (38-126) U/L Total Protein (6.3-8.2) g/dL Albumin (3.5-5.0) g/dL Crossmatch 04/29/23 04/30/23 04/30/23 Range/Units 21:49 00:30 05:01 WBC (3.8-10.6) k/uL RBC (4.30-5.90) m/uL Hgb (13.0-17.5) gm/dL Hct (39.0-53.0) % RDW (11.5-15.5) % Neutrophils # (1.3-7.7) k/uL PT 13.0 H (10.0-12.5) sec INR 1.2 H (<1.2) ABG pCO2 (35-45) mmHg ABG pO2 383 H (83-108) mmHg ABG HCO3 (21-25) mmol/L ABG O2 Saturation 99.9 H (94-97) % Sodium (137-145) mmol/L Chloride (98-107) mmol/L Carbon Dioxide (22-30) mmol/L BUN (9-20) mg/dL Creatinine (0.66-1.25) mg/dL Glucose (74-99) mg/dL POC Glucose (mg/dL) 126 H (70-110) mg/dL Calcium (8.4-10.2) mg/dL Magnesium (1.6-2.3) mg/dL Alkaline Phosphatase (38-126) U/L Total Protein (6.3-8.2) g/dL Albumin (3.5-5.0) g/dL Crossmatch 04/30/23 04/30/23 04/30/23 Range/Units 05:01 05:01 06:26 WBC 11.8 H (3.8-10.6) k/uL RBC 3.87 L (4.30-5.90) m/uL Hgb 10.8 L (13.0-17.5) gm/dL Hct 33.2 L (39.0-53.0) % RDW 17.8 H (11.5-15.5) % Neutrophils # 8.5 H (1.3-7.7) k/uL PT (10.0-12.5) sec INR (<1.2) ABG pCO2 33 L (35-45) mmHg ABG pO2 121 H (83-108) mmHg ABG HCO3 (21-25) mmol/L ABG O2 Saturation 98.7 H (94-97) % Sodium 136 L (137-145) mmol/L Chloride 111 H (98-107) mmol/L Carbon Dioxide 18 L (22-30) mmol/L BUN (9-20) mg/dL Creatinine 0.49 L (0.66-1.25) mg/dL Glucose 114 H (74-99) mg/dL POC Glucose (mg/dL) (70-110) mg/dL Calcium 7.6 L (8.4-10.2) mg/dL Magnesium 1.3 L (1.6-2.3) mg/dL Alkaline Phosphatase 173 H (38-126) U/L Total Protein 5.9 L (6.3-8.2) g/dL Albumin 2.4 L (3.5-5.0) g/dL Crossmatch 04/30/23 Range/Units 06:30 WBC (3.8-10.6) k/uL RBC (4.30-5.90) m/uL Hgb (13.0-17.5) gm/dL Hct (39.0-53.0) % RDW (11.5-15.5) % Neutrophils # (1.3-7.7) k/uL PT (10.0-12.5) sec INR (<1.2) ABG pCO2 (35-45) mmHg ABG pO2 (83-108) mmHg ABG HCO3 (21-25) mmol/L ABG O2 Saturation (94-97) % Sodium (137-145) mmol/L Chloride (98-107) mmol/L Carbon Dioxide (22-30) mmol/L BUN (9-20) mg/dL Creatinine (0.66-1.25) mg/dL Glucose (74-99) mg/dL POC Glucose (mg/dL) 120 H (70-110) mg/dL Calcium (8.4-10.2) mg/dL Magnesium (1.6-2.3) mg/dL Alkaline Phosphatase (38-126) U/L Total Protein (6.3-8.2) g/dL Albumin (3.5-5.0) g/dL Crossmatch Microbiology - Last 24 Hours (Table) 04/27/23 14:12 Anaerobic Culture - Preliminary Knee - Left 04/27/23 14:12 Gram Stain - Preliminary Knee - Left Body Fluid Culture - Preliminary 04/24/23 06:47 Blood Culture - Final Blood Assessment and Plan (1) Allergy to sulfa drugs Current Visit: Yes Status: Acute Code(s): Z88.2 - ALLERGY STATUS TO SULFONAMIDES SNOMED Code(s): 37797836 (2) Bacteremia due to Streptococcus Current Visit: Yes Status: Acute Code(s): R78.81 - BACTEREMIA; B95.5 - UNSP STREPTOCOCCUS THE CAUSE OF DISEASES [facility] SNOMED Code(s): 323042975369 (3) Septic arthritis of knee, left Current Visit: Yes Status: Acute Code(s): M00.9 - PYOGENIC ARTHRITIS, UNSPECIFIED SNOMED Code(s): 087290936 (4) Abscess in epidural space of lumbar spine Current Visit: Yes Status: Acute Code(s): G06.1 - INTRASPINAL ABSCESS AND GRANULOMA SNOMED Code(s): 432976064 (5) Discitis of lumbar region Current Visit: Yes Status: Acute Code(s): M46.46 - DISCITIS, UNSPECIFIED, LUMBAR REGION SNOMED Code(s): 164500580 Plan: 1patient presented to hospital with weakness fever did have Streptococcus agalactiae bacteremia in this patient who did have a significant swelling to the left knee along with the stiffness with aspiration of the left knee cell count more than 20,000 white cell high clinical suspicious for septic arthritis likely related to streptococci 2- -blood cultures has been repeated and so far negative 3patient did have an MRI of the lumbar spine suspicious for epidural abscess from T12-L2 and possible discitis L1-L2, MRI of the cervical spine was negative for any epidural abscess MRI of the thoracic spine did show extension of the abscess to T11 vertebra, the patient status post drainage of the epidural abscess along with laminectomy and hardware placement on 04/29/2023 4-patient to continue with cefazolin 2 g every 8 hours, awaiting OR cultures to be finalized and monitor clinical course closely Dictation was produced using [employer] dictation software. please excuse any grammatical, word or spelling errors. Time with Patient: Less than 30
[2023-04-30] MEDS: LACTATED RINGERS 1,000 ML IV SCH (13:04)
[2023-04-30] MEDS ORDERED: FUROSEMIDE 10 MG/ML 4 ML VIAL IV STA (13:09)
[2023-04-30 13:23] LABS: Glucose,Whole Blood 142 mg/dL (70-110)
[2023-04-30] MEDS: traMADol 50 MG TAB PO PRN (14:15)
[2023-04-30] MEDS: COLESEVELAM 625 MG TAB PO SCH (17:40)
[2023-04-30] MEDS: MAGNESIUM HYDROXIDE 2,400 MG/30 ML CUP PO SCH (17:44)
[2023-04-30 17:48] LABS: Glucose,Whole Blood 142 mg/dL (70-110)
[2023-04-30] MEDS: HEPARIN SODIUM,PORCINE 5,000 UNIT/ML 1 ML VIAL SQ SCH (19:44)
[2023-04-30 20:25] LABS: Glucose,Whole Blood 144 mg/dL (70-110)
--- NOTE | 2023-04-30 22:05 | CT ---
EXAMINATION TYPE: CT lumbar spine wo con DATE OF EXAM: 04/30/2023 COMPARISON: MRI 04/26/2023 HISTORY: post-op CT DLP: 2857.3 mGycm CONTRAST: None TECHNIQUE: CT of the lumbar spine is performed on a spiral scan at 3 mm thick sections. Reconstructed images are performed in the coronal and sagittal planes. FINDINGS: Multilevel pedicle screws are present throughout the thoracolumbar junction. This causes li mitation due to beam hardening artifact. No definite collections in the epidural space are evident CT examination. This however is limited giv en lack of intravenous contrast as well as beam hardening artifact present. No suspicious changes to suggest anterior thecal sac impression. T10-11: No focal disc herniation or significant disc bulge is evident. No spinal canal stenosis or neural foraminal stenosis is present. T11-12: No focal disc herniation or significant disc bulge is evident. No spinal canal stenosis or neural foraminal stenosis is present. T12-L1: No focal disc herniation or significant disc bulge is evident. No spinal canal stenosis or neural foraminal stenosis is present. L1-L2: Disc spacer has been placed. No spinal canal stenosis or neural foraminal stenosis is identifi ed. L2-L3: Disc space narrowing is present. Some endplate changes are present. No spinal canal stenosis i s identified. Some right ligamentum flavum laxity is not excluded. Neural foramen appear patent. L3-L4: There is loss of disc height is level. Right foraminal stenosis is present. Moderate left fora lamar narrowing is present. L4-L5: Disc bulge is present with mild anterior thecal sac compression. Facet hypertrophy and ligamen jacobo flavum laxity are present. Mild canal narrowing may be present. Findings appear similar to the MR I. L5-S1: Spondylolysis of L5 on the right is present no spinal canal stenosis is evident. There is a mi ld grade 1 spondylolisthesis of L5 anteriorly on S1. Vacuum disc is present. Vertebral alignment appears improved. IMPRESSION: No definite residual epidural abscess identified based on the noncontrast CT exam. Limitations barbara oseguera discussed above. 2. Interval surgical intervention through the thoracolumbar spine above.
[2023-05-01 00:11] LABS: Glucose,Whole Blood 158 mg/dL (70-110)
[2023-05-01] MEDS: LACTATED RINGERS 1,000 ML IV SCH ×3 (00:12→17:46)
[2023-05-01] MEDS: INSULIN ASPART (NovoLOG) 100 UNIT/ML VIAL SQ SCH ×5 (00:13→21:03)
[2023-05-01] MEDS: HYDROcodone/APAP 10-325MG 1 EACH TAB PO PRN ×4 (02:07→16:20)
[2023-05-01 04:51] LABS: Anisocytosis Slight; Basophils # (A) 0.1 k/uL (0-0.2); Basophils % (A) 1 %; Eosinophils # (A) 0.2 k/uL (0-0.7); Eosinophils % (A) 1 %; HCT 27.5 % (39.0-53.0); Hypochromasia Moderate; Lymphocytes # (A) 1.4 k/uL (1.0-4.8); Lymphocytes % (A) 11 %; MCH 27.5 pg (25.0-35.0); MCHC 32.3 g/dL (31.0-37.0); MCV 85.4 fL (80.0-100.0); Mean Platelet Volume 8.8; Monocytes # (A) 0.8 k/uL (0-1.0); Monocytes % (A) 6 %; Neutrophils # (A) 10.7 k/uL (1.3-7.7); Neutrophils % (A) 79 %; Platelet Count 224 k/uL (150-450); Poikilocytosis Slight; RBC 3.22 m/uL (4.30-5.90); RDW 18.3 % (11.5-15.5); WBC 13.5 k/uL (3.8-10.6)
[2023-05-01 05:04] LABS: ALT 12 U/L (4-49); AST 53 U/L (17-59); African American GFR (CKD) 72 (>60 ml/min/1.73 sqM); Albumin 2.1 g/dL (3.5-5.0); Alkaline Phosphatase 163 U/L (38-126); Anion Gap 6 mmol/L; Blood Urea Nitrogen 18 mg/dL (9-20); Calcium 7.8 mg/dL (8.4-10.2); Carbon Dioxide 20 mmol/L (22-30); Chloride 108 mmol/L (98-107); Glucose 121 mg/dL (74-99); Magnesium 2.2 mg/dL (1.6-2.3); Non-African American GFR(CKD) 63 (>60 ml/min/1.73 sqM); Potassium 4.3 mmol/L (3.5-5.1); Sodium 134 mmol/L (137-145); Total Bilirubin 0.8 mg/dL (0.2-1.3); Total Protein 5.3 g/dL (6.3-8.2)
[2023-05-01 05:07] LABS: HGB 8.9 gm/dL (13.0-17.5)
--- NOTE | 2023-05-01 05:12 | P.PN ---
Subjective Progress Note Date: 04/30/23 This is a 67-year-old male patient of Dr. Loli Campbell, patient has medical history of abdominal ascites and liver cirrhosis, chronic alcoholism, diabetes mellitus, hemorrhoids, gastroesophageal reflux disease. Patient follows with dr rocco turcios underwent upper and lower endoscopy in January of 2023 has history of esophageal varices which underwent banding in Jan as well. Has a history of left lower extremity total knee arthroplasty done a year ago, initially presented to [facility] with left lower extremity edema with concern for infected prosthetic of the left knee. He presented to [facility] with fevers progressive weakness and back pain. States fever was as high as 104. He was also anemic hemoglobin 6.5 requiring 2 unit of PRBC. Patient was found to have strep agalactaie bacteremia with features of sepsis over at [facility]. He was treated with IV ceftriaxone 2 grams. Patient also with recent influenza infection and hypoxia at [facility]. He had a venous doppler of the left leg at [facility] negative for acute DVT. He underwent arthrocentesis of the left knee joint effusion show ing 20,000 WBCs and suspicious for infected prosthesis was recommended to transfer to [facility] for further evaluation by Dr Bishop. Yesterday before transfer he underwent work up for abdominal ascites which he has undergo paracentesis in the past, he had an abdominal ultrasound showing significant amount of intraabdominal ascites. IR consulted. He is admitted to this hospital with consults placed to [place] and infectious disease. 04/24/2023 Patient evaluated today sitting up in bed. He was seen in consultation by ID who has changed antibiotics to IV cefazolin from ceftriaxone with plans to repeat blood culture. Underwent paracentesis 1.5 L off. Sodium 135, potassium 3.3, BUN 8, creatinine 0.50, magnesium 1.8, CRP 6.2. Orthopedics not recommending any surgical intervention at this time. 04/25/2023 Patient is evaluated today resting in bed. pts is at the bedside and plan of care was discussed thoroughly. Patient remains on IV Cefazolin with repeat blood cultures pending and negative so far. Infectious disease is following this case. He is status post paracentesis. Again orthopedics not recommending any surgical intervention for the right knee septic arthritis. 04/26/2023 Patient is still complaining from left knee swelling, patient states is better, pain controlled no erythema. Orthopedic surgery planning for surgery for infected prosthesis onto stages first one on 04/29 MRI of the lumbar spine is ordered to rule out infection Cardiology team preoperative evaluation is ordered Patient remains on IV cefazolin Repeat blood culture/6 still show no growth ID team on the case 04/27/2023 Patient with minimal back pain and his left knee with no significant pain is still warm and swollen with no redness. Initially orthopedic team are planning for surgical debridement of his left knee. However MRI of the lumbar spine showing epidural abscess of the distal thoracic and irrigated proximal lumbar vertebrae. Orthopedic team still on the case with follow the patient and needs surgery was held and replaced to do lumbar surgery with ( T11-L3 decompression and fusion along with epidural abscess/phlegmon evacuation for 04/29/2023.) Preoperative cardiac evaluation is requested Chest pain or dyspnea No change in urine or bowel habits. No fever. Monitor blood pressure Continue with cefazolin 04/28. Patient seen and examined. Still has left knee pain. 04/29/2023 Patient is seen this am and awaiting T11-L3 decompression and fusion along with epidural abscess/phlegmon evacuation some time today with orthopedics. ID following and patient is continued on IV antibiotics and awaiting surgery and finalized cultures. Will await and discuss with ortho regarding left knee as patient continues to report left knee swelling and pain. Patient is afebrile with no reports of chest pain or shortness of breath. Patient hemoglobin is 9 today and per ortho patient is to receive 2 units of blood for surgery. Will await surgical report 04/30/2023 Patient is seen in follow-up this morning continues on mechanical ventilation and FiO2 is currently 60% with the PEEP of 5. Patient continues on low-dose Levophed 0.01 and is status post T11-L3 decompression. Per nursing staff patient is slowly being weaned off Levophed and working on sedation trials for weaning off mechanical ventilation. Patient continues on IV antibiotics with infectious disease following. Deep tissue cultures obtained and pending at this time. Patient is afebrile. Patient has indwelling Truong catheter with minimal output noted and will add lactated Ringer 700 mL per hour and follow-up with repeat labs. REVIEW OF SYSTEMS: Unable to completely assess as patient is on mechanical ventilation and sedated PHYSICAL EXAMINATION: GENERAL: The patient is a 67-year-old male who is maintained on mechanical ventilation with FiO2 of 60% and PEEP is 5. Well developed, well nourished. Obese HEENT: Pupils are round and equally reacting to light. EOMI. No scleral icterus. No conjunctival pallor. Normocephalic, atraumatic. No pharyngeal erythema. No thyromegaly. CARDIOVASCULAR: S1 and S2 muffled PULMONARY: Chest is clear to auscultation, no wheezing or crackles. ABDOMEN: Soft, nontender, nondistended, normoactive bowel sounds. No palpable organomegaly. MUSCULOSKELETAL: No joint swelling or deformity. Left knee with no obvious swelling or erythema noted EXTREMITIES: No cyanosis, clubbing, or pedal edema. NEUROLOGICAL: Unable to completely assess as patient is sedated. diffusely weak SKIN: No rashes. Assessment: Patient is postop day 1 status post T11-L3 decompression Strep Algalactaie bacteremia with features of sepsis, ongoing likely due to epidural abscess as well as concerns for left knee septic joint Left knee septic joint Epidural abscess History of esophageal varices with banding in january Hypokalemia, improved Hx of cirrhosis, abdominal ascites ultrasound showing significant ascites s/p paracentesis with 1.5 L off and patient has been started on aldactone and lasix BID. Hx of GERD Diabetes Mellitus type 2 hgb A1C 6.9 continue on accuchecks achs and sliding scale insulin. History of left TKA Hypertension continues on losartan BID and atenolol. Hemorrhoids Chronic alcohol use monitor for alcohol withdrawal Hx of gout continue on allopurinol, Plan: Patient is continued in the ICU status post T11-L3 decompression and fusion along with epidural abscess/phlegmon evacuation Patient remains in the ICU on mechanical ventilation FiO2 is 60% with a PEEP of 5 and attempting weaning trials Patient remains on low-dose Levophed and weaning Per nursing staff, not much urinary output noted and patient was on normal saline at 15 mL and will transition to lactated Ringer's 100 mL and follow-up with repeat labs. Continue to monitor urinary output as patient has indwelling Truong catheter Resume diet when cleared by surgery Will follow up with repeat labs and continue to monitor closely Patient to continue on IV antibiotics per ID recommendations The impression and plan of care has been dictated by Cortney Pierce, Nurse Practitioner as directed. Dr. Danuta MD I have performed a history and examination and MDM of this patient, discussed the same with the dictator, and agree with the dictator's assessment and plan as written ,documented as a scribe. Based on total visit time, I have performed more than 50% of the visit. Objective - Vital Signs Vital signs: Vital Signs Temp 97.8 F 04/30/23 04:00 Pulse 92 04/30/23 08:18 Resp 18 04/30/23 07:00 BP 95/52 04/30/23 07:00 Pulse Ox 99 04/30/23 07:00 FiO2 40 04/30/23 07:55 Intake & Output 04/29/23 04/30/23 04/30/23 18:59 06:59 18:59 Intake Total 2822 1452.898 50 Output Total 825 1500 15 Balance 1996 35 Weight 78 kg 90.1 kg Intake: IV 2152 400 50 KVO 400 50 Intake, IV Titration 50 1052.898 Amount Lactated Ringers 1,000 ml 1000 @ 0 mls/hr IV .[facility] Rx#:[id number] Norepinephrine 4 mg In 52.898 Sodium Chloride 0.9% 250 ml @ 0.03 MCG/KG/MIN 8. 915 mls/hr IV .Q24H [facility] Rx#:[id number] ceFAZolin 2 gm In Sodium 50 Chloride 0.9% 50 ml @ 100 mls/hr IVPB Q8HR [facility] Rx# :[id number] Blood Product 620 Rc As-1 Unit 310 [id number] Rc As-1 Unit 310 [id number] Output: Drainage 205 Right Back 205 Urine 825 895 15 Estimated Blood Loss 400 Other: Voiding Method Indwelling Catheter ABP, PAP, CO, CI - Last Documented Arterial Blood Pressure 107/48 - Labs CBC & Chem 7: 04/30/23 05:01 04/30/23 05:01 Labs: Abnormal Lab Results - Last 24 Hours (Table) 04/28/23 04/29/23 04/29/23 Range/Units 14:50 11:11 13:45 WBC (3.8-10.6) k/uL RBC 3.85 L (4.30-5.90) m/uL Hgb 10.4 L (13.0-17.5) gm/dL Hct 32.7 L (39.0-53.0) % RDW 18.1 H (11.5-15.5) % Neutrophils # (1.3-7.7) k/uL PT (10.0-12.5) sec INR (<1.2) ABG pCO2 (35-45) mmHg ABG pO2 (83-108) mmHg ABG HCO3 (21-25) mmol/L ABG O2 Saturation (94-97) % Sodium (137-145) mmol/L Chloride (98-107) mmol/L Carbon Dioxide (22-30) mmol/L BUN (9-20) mg/dL Creatinine (0.66-1.25) mg/dL Glucose (74-99) mg/dL POC Glucose (mg/dL) 119 H (70-110) mg/dL Calcium (8.4-10.2) mg/dL Magnesium (1.6-2.3) mg/dL Alkaline Phosphatase (38-126) U/L Total Protein (6.3-8.2) g/dL Albumin (3.5-5.0) g/dL Crossmatch See Detail 04/29/23 04/29/23 04/29/23 Range/Units 14:38 17:49 18:00 WBC (3.8-10.6) k/uL RBC 3.93 L (4.30-5.90) m/uL Hgb 11.0 L (13.0-17.5) gm/dL Hct 33.1 L (39.0-53.0) % RDW 17.6 H (11.5-15.5) % Neutrophils # (1.3-7.7) k/uL PT (10.0-12.5) sec INR (<1.2) ABG pCO2 26 L (35-45) mmHg ABG pO2 218 H (83-108) mmHg ABG HCO3 16 L (21-25) mmol/L ABG O2 Saturation >100.0 H (94-97) % Sodium (137-145) mmol/L Chloride (98-107) mmol/L Carbon Dioxide (22-30) mmol/L BUN (9-20) mg/dL Creatinine (0.66-1.25) mg/dL Glucose (74-99) mg/dL POC Glucose (mg/dL) 111 H (70-110) mg/dL Calcium (8.4-10.2) mg/dL Magnesium (1.6-2.3) mg/dL Alkaline Phosphatase (38-126) U/L Total Protein (6.3-8.2) g/dL Albumin (3.5-5.0) g/dL Crossmatch 04/29/23 04/29/23 04/29/23 Range/Units 18:00 21:34 21:46 WBC (3.8-10.6) k/uL RBC 3.29 L (4.30-5.90) m/uL Hgb 9.2 L D (13.0-17.5) gm/dL Hct 28.1 L (39.0-53.0) % RDW 17.7 H (11.5-15.5) % Neutrophils # (1.3-7.7) k/uL PT (10.0-12.5) sec INR (<1.2) ABG pCO2 (35-45) mmHg ABG pO2 (83-108) mmHg ABG HCO3 (21-25) mmol/L ABG O2 Saturation (94-97) % Sodium 136 L (137-145) mmol/L Chloride 111 H (98-107) mmol/L Carbon Dioxide 19 L (22-30) mmol/L BUN 7 L (9-20) mg/dL Creatinine 0.40 L (0.66-1.25) mg/dL Glucose (74-99) mg/dL POC Glucose (mg/dL) 121 H (70-110) mg/dL Calcium 7.9 L (8.4-10.2) mg/dL Magnesium (1.6-2.3) mg/dL Alkaline Phosphatase (38-126) U/L Total Protein (6.3-8.2) g/dL Albumin (3.5-5.0) g/dL Crossmatch 04/29/23 04/29/23 04/30/23 Range/Units 21:46 21:49 00:30 WBC (3.8-10.6) k/uL RBC (4.30-5.90) m/uL Hgb (13.0-17.5) gm/dL Hct (39.0-53.0) % RDW (11.5-15.5) % Neutrophils # (1.3-7.7) k/uL PT (10.0-12.5) sec INR (<1.2) ABG pCO2 (35-45) mmHg ABG pO2 383 H (83-108) mmHg ABG HCO3 (21-25) mmol/L ABG O2 Saturation 99.9 H (94-97) % Sodium 136 L (137-145) mmol/L Chloride 112 H (98-107) mmol/L Carbon Dioxide 19 L (22-30) mmol/L BUN 8 L (9-20) mg/dL Creatinine 0.52 L (0.66-1.25) mg/dL Glucose 105 H (74-99) mg/dL POC Glucose (mg/dL) 126 H (70-110) mg/dL Calcium 7.3 L (8.4-10.2) mg/dL Magnesium (1.6-2.3) mg/dL Alkaline Phosphatase (38-126) U/L Total Protein (6.3-8.2) g/dL Albumin (3.5-5.0) g/dL Crossmatch 04/30/23 04/30/23 04/30/23 Range/Units 05:01 05:01 05:01 WBC 11.8 H (3.8-10.6) k/uL RBC 3.87 L (4.30-5.90) m/uL Hgb 10.8 L (13.0-17.5) gm/dL Hct 33.2 L (39.0-53.0) % RDW 17.8 H (11.5-15.5) % Neutrophils # 8.5 H (1.3-7.7) k/uL PT 13.0 H (10.0-12.5) sec INR 1.2 H (<1.2) ABG pCO2 (35-45) mmHg ABG pO2 (83-108) mmHg ABG HCO3 (21-25) mmol/L ABG O2 Saturation (94-97) % Sodium 136 L (137-145) mmol/L Chloride 111 H (98-107) mmol/L Carbon Dioxide 18 L (22-30) mmol/L BUN (9-20) mg/dL Creatinine 0.49 L (0.66-1.25) mg/dL Glucose 114 H (74-99) mg/dL POC Glucose (mg/dL) (70-110) mg/dL Calcium 7.6 L (8.4-10.2) mg/dL Magnesium 1.3 L (1.6-2.3) mg/dL Alkaline Phosphatase 173 H (38-126) U/L Total Protein 5.9 L (6.3-8.2) g/dL Albumin 2.4 L (3.5-5.0) g/dL Crossmatch 04/30/23 04/30/23 Range/Units 06:26 06:30 WBC (3.8-10.6) k/uL RBC (4.30-5.90) m/uL Hgb (13.0-17.5) gm/dL Hct (39.0-53.0) % RDW (11.5-15.5) % Neutrophils # (1.3-7.7) k/uL PT (10.0-12.5) sec INR (<1.2) ABG pCO2 33 L (35-45) mmHg ABG pO2 121 H (83-108) mmHg ABG HCO3 (21-25) mmol/L ABG O2 Saturation 98.7 H (94-97) % Sodium (137-145) mmol/L Chloride (98-107) mmol/L Carbon Dioxide (22-30) mmol/L BUN (9-20) mg/dL Creatinine (0.66-1.25) mg/dL Glucose (74-99) mg/dL POC Glucose (mg/dL) 120 H (70-110) mg/dL Calcium (8.4-10.2) mg/dL Magnesium (1.6-2.3) mg/dL Alkaline Phosphatase (38-126) U/L Total Protein (6.3-8.2) g/dL Albumin (3.5-5.0) g/dL Crossmatch Microbiology - Last 24 Hours (Table) 04/27/23 14:12 Anaerobic Culture - Preliminary Knee - Left 04/27/23 14:12 Gram Stain - Preliminary Knee - Left Body Fluid Culture - Preliminary 04/24/23 06:47 Blood Culture - Final Blood
[2023-05-01] MEDS: PANTOPRAZOLE 40 MG TABLET PO SCH (06:39)
[2023-05-01] MEDS: SENNOSIDES-DOCUSATE SODIUM 1 EACH TAB PO SCH (08:23)
[2023-05-01] MEDS: HEPARIN SODIUM,PORCINE 5,000 UNIT/ML 1 ML VIAL SQ SCH ×2 (08:24→21:04)
[2023-05-01] MEDS: ASCORBIC ACID 500 MG TAB PO SCH (08:24)
[2023-05-01] MEDS: ASPIRIN 81 MG PO SCH (08:24)
[2023-05-01] MEDS: CHOLECALCIFEROL 25 MCG (1000 IU) TABLET PO SCH (08:24)
[2023-05-01] MEDS: MULTIVITAMINS, THERA 1 EACH TAB PO SCH (08:24)
[2023-05-01] MEDS: allopurinoL 300 MG TAB PO SCH (08:25)
[2023-05-01] MEDS: atenoloL 50 MG TAB PO SCH (08:25)
--- NOTE | 2023-05-01 09:30 | XR ---
EXAMINATION TYPE: XR chest 1V portable DATE OF EXAM: 05/01/2023 COMPARISON: 04/30/2023 INDICATION: Tube placement TECHNIQUE: Single frontal view of the chest is obtained. FINDINGS: The heart size is enlarged. The pulmonary vasculature is normal. Mild left lower lobe infiltrate may be present. Midline surgical skin kaleb are evident. The patient Gated. Nasogastric tube is been removed. IMPRESSION: 1. Mild left lower lobe infiltrate
[2023-05-01] MEDS: LOSARTAN 50 MG TAB PO SCH ×2 (09:31→21:04)
[2023-05-01] MEDS: SPIRONOLACTONE 25 MG TAB PO SCH (09:31)
[2023-05-01] MEDS: FUROSEMIDE 20 MG TAB PO SCH ×2 (09:31→16:20)
--- NOTE | 2023-05-01 11:25 | P.PN ---
Subjective Progress Note Date: 05/01/23 Principal diagnosis: Respiratory failure. Pulmonary consultation dated 04/30/2023. This is a 67-year-old male who was admitted back on April 23. He apparently has a history of hypertension, hyperlipidemia, diabetes, esophageal cancer, liver cirrhosis, and was admitted for a febrile illness. The patient has been in the hospital since that time, and yesterday, had a T11 through L3 decompression, for epidural abscess. The patient was brought back to the intensive care unit on the ventilator. We were consulted. The patient is currently on volume assist control, rate 16, tidal volume 450, FiO2 40%, PEEP of 5. Blood gases show pO2 of 121, pCO2 33, pH is 7.41. The patient is currently on propofol at 25 mcg/kg/m, saline at 50 mL an hour. The patient's also getting norepinephrine at 8 mcg/m. Today's postoperative day #1. There is no operative report in the chart. Laboratory data includes a white count 11.8, he will been 10.8, hematocrit 33.2, and platelet count 344,000. Sodium 136, potassium 4.2, chlorides 111, CO2 18, BUN 10, and creatinine 0.49. The rest of the comprehensive metabolic profile looks okay. Albumin is a bit low at 2.4. Culture data is thus far negative. Chest x-rays reviewed. Progress note dated 05/01/2023. 67-year-old male seen in the intensive care unit, room 255. The patient was successfully extubated from mechanical ventilation yesterday, April 30. Currently, he's on 2 L by nasal cannula. He is getting lactated Ringer's at 100 mL an hour. He has no complaints today, and the nurse tells me he had an uneventful night. White count 13.5, hemoglobin 8.9, hematocrit 27.5, with a normal platelet count. Sodium 134, potassium 4.3, chlorides 108, CO2 20, BUN 18, creatinine 1.18. Glucose 121. Albumin is 2.1. Chest x-ray shows a minimal left lower lobe infiltrate. Objective - Vital Signs Vital signs: Vital Signs Temp 98.6 F 05/01/23 08:00 Pulse 96 05/01/23 09:00 Resp 14 05/01/23 09:00 BP 116/66 05/01/23 09:00 Pulse Ox 95 05/01/23 09:00 FiO2 40 04/30/23 13:43 Intake & Output 04/30/23 05/01/23 05/01/23 18:59 06:59 18:59 Intake Total 4843.841 4677 580 Output Total 240 235 70 Balance 8302.549 5866 510 Weight 88.3 kg Intake: IV 400 120 30 KVO 50 ns 350 120 30 Intake, IV Titration 2656.054 2592 350 Amount Lactated Ringers 1,000 ml 500 1200 300 @ 100 mls/hr IV .Q10H [facility] Rx#:[id number] Magnesium Sulfate-D5w Pmx 300 1 gm In Dextrose/Water 1 100ml.bag @ 100 mls/hr IVPB Q1H [facility] Rx#: [id number] Norepinephrine 4 mg In 111.693 Sodium Chloride 0.9% 250 ml @ 0.03 MCG/KG/MIN 8. 915 mls/hr IV .Q24H [facility] Rx#:[id number] ceFAZolin 2 gm In Sodium 100 50 Chloride 0.9% 50 ml @ 100 mls/hr IVPB Q8HR [facility] Rx# :[id number] propofoL 1,000 mg In 100.507 Empty Bag 1 bag @ 15 MCG/ KG/MIN 7.02 mls/hr IV . [id number] [facility] Rx#:[id number] Oral 100 200 Other 90 Output: Urine 240 235 70 Other: Voiding Method Indwelling Catheter Indwelling Catheter Indwelling Catheter ABP, PAP, CO, CI - Last Documented Arterial Blood Pressure 146/54 - Exam No acute distress, currently on nasal O2, at 2 L. HEENT examination is grossly unremarkable. Neck supple. Full range of motion. No adenopathy thyromegaly or neck vein distention. Cardiovascular examination reveals regular rhythm rate. S1-S2 normal. No S3 or S4. No discernible murmur noted. Heart rate 96 bpm. Heart sounds are distant. Lungs reveal mostly clear breath sounds. Minimal scattered rhonchi. No wheezes or crackles. Breath sounds equal. Saturations 85% on 2 L. Abdomen soft without bowel sounds. No masses. Extremities are intact. No cyanosis clubbing or edema. Skin is without rash or lesion. Neurologic examination is brief but nonfocal. - Labs CBC & Chem 7: 05/01/23 04:35 05/01/23 04:35 Labs: Abnormal Lab Results - Last 24 Hours (Table) 04/30/23 04/30/23 04/30/23 Range/Units 13:22 17:47 20:24 WBC (3.8-10.6) k/uL RBC (4.30-5.90) m/uL Hgb (13.0-17.5) gm/dL Hct (39.0-53.0) % RDW (11.5-15.5) % Neutrophils # (1.3-7.7) k/uL Sodium (137-145) mmol/L Chloride (98-107) mmol/L Carbon Dioxide (22-30) mmol/L Glucose (74-99) mg/dL POC Glucose (mg/dL) 142 H 142 H 144 H (70-110) mg/dL Calcium (8.4-10.2) mg/dL Alkaline Phosphatase (38-126) U/L Total Protein (6.3-8.2) g/dL Albumin (3.5-5.0) g/dL 05/01/23 05/01/23 05/01/23 Range/Units 00:10 04:35 04:35 WBC 13.5 H (3.8-10.6) k/uL RBC 3.22 L (4.30-5.90) m/uL Hgb 8.9 L D (13.0-17.5) gm/dL Hct 27.5 L (39.0-53.0) % RDW 18.3 H (11.5-15.5) % Neutrophils # 10.7 H (1.3-7.7) k/uL Sodium 134 L (137-145) mmol/L Chloride 108 H (98-107) mmol/L Carbon Dioxide 20 L (22-30) mmol/L Glucose 121 H (74-99) mg/dL POC Glucose (mg/dL) 158 H (70-110) mg/dL Calcium 7.8 L (8.4-10.2) mg/dL Alkaline Phosphatase 163 H (38-126) U/L Total Protein 5.3 L (6.3-8.2) g/dL Albumin 2.1 L (3.5-5.0) g/dL Microbiology - Last 24 Hours (Table) 04/29/23 20:18 Gram Stain - Preliminary Back 04/30/23 20:18 Gram Stain - Preliminary Back 04/29/23 20:18 Gram Stain - Preliminary Back 04/27/23 14:12 Gram Stain - Preliminary Knee - Left Body Fluid Culture - Preliminary 04/29/23 20:18 Gram Stain - Preliminary Back 04/29/23 20:18 Gram Stain - Preliminary Back Assessment and Plan Assessment: Postop day #2, status post T11 through L3 decompression for epidural abscess. Routine postoperative ventilator management, with successful extubation 04/30/19. Streptococcal bacteremia. Septic joint, left knee. History of esophageal varices. History of liver cirrhosis and ascites. History of gastroesophageal reflux disease. Diabetes mellitus. History of left TKA. History of hypertension. History of hyperlipidemia. History of gout. History of chronic alcohol use. Plan: Plan dated 04/30/2023. The patient had surgery yesterday. The patient came back to the intensive care unit on the ventilator. Currently, the patient's on propofol at 25 mcg/kg/m, saline IV at 50 mL an hour, and norepinephrine at 8 mcg/m. Blood gases are reasonable show a mixed acid-base disturbance, including a mild respiratory alkalosis and mild metabolic acidosis. PH is normal. The patient continues on Ancef as an antibiotic. Labs, x-rays, medications are reviewed. We will attempt a daily interruption of sedation, and possibly a spontaneous breathing trial. No additional recommendations are made. Prognosis is guarded. We will continue to follow the patient, and make recommendations along the way. Plan dated 05/01/2023. The patient was successfully extubated yesterday, 04/30/2023. He continues on oxygen at 2 L. He is getting lactated Ringer's at 100 mL an hour. Labs, x- rays, and all medications are reviewed. The patient appears be doing well. The patient could theoretically be transferred out to the general medical floor. The patient should continue with incentive spirometry. Labs, x-rays, and medications are reviewed. Prognosis is guarded. We will continue to follow the patient, and make recommendations along the way. Time with Patient: Less than 30
[2023-05-01 11:53] LABS: Glucose,Whole Blood 157 mg/dL (70-110)
--- NOTE | 2023-05-01 13:11 | P.PN ---
Subjective Progress Note Date: 05/01/23 Principal diagnosis: Reason for follow-up with Streptococcus bacteremia and concern for possible left knee septic arthritis Patient is a 67-year-old male with a past medical history significant for chronic alcoholism cirrhosis diabetes mellitus reflux in this patient who did have a left knee arthroplasty done by Dr. Bishop patient recently presented to [facility] about a week ago for evaluation of fever patient did have Streptococcus agalactiae bacteremia and the patient was noticed to have some swelling to the left knee s/p aspirate with a white count of 20,000 concerning for septic need for the patient was transferred to [facility] to be evaluated by his orthopedic surgeon.Patient did have an MRI of the lumbar spine suspicious for epidural abscess from T12-L2 and possible discitis L1-L2 MRI cervical spine no epidural abscess MRI thoracic spine tissues extension of the abscess to the T11 vertebra. Patient is status post laminectomy and drainage of the epidural abscess and implant of rods and screws life spine provide left cage, procedure completed on 04/29/2023. On today's evaluation that is 05/01/2023 patient remains to be afebrile, patient has been extubated and is breathing comfortably on 2 L nasal cannula oxygen patient denies having any chest pain or cough no vomiting no abdominal pain or any worsening pain to the back Patient white count of 13.5, creatinine is 1.18 OR cultures currently pending Objective - Vital Signs Vital signs: Vital Signs Temp 98.6 F 05/01/23 08:00 Pulse 96 05/01/23 09:00 Resp 14 05/01/23 09:00 BP 116/66 05/01/23 09:00 Pulse Ox 95 05/01/23 09:00 FiO2 40 04/30/23 13:43 Intake & Output 04/30/23 05/01/23 05/01/23 18:59 06:59 18:59 Intake Total 1964.663 4332 790 Output Total 240 235 130 Balance 4911.257 8986 660 Weight 88.3 kg Intake: IV 400 120 40 KVO 50 ns 350 120 40 Intake, IV Titration 8965.201 9023 450 Amount Lactated Ringers 1,000 ml 500 1200 400 @ 100 mls/hr IV .Q10H [facility] Rx#:[id number] Magnesium Sulfate-D5w Pmx 300 1 gm In Dextrose/Water 1 100ml.bag @ 100 mls/hr IVPB Q1H [facility] Rx#: [id number] Norepinephrine 4 mg In 111.693 Sodium Chloride 0.9% 250 ml @ 0.03 MCG/KG/MIN 8. 915 mls/hr IV .Q24H [facility] Rx#:[id number] ceFAZolin 2 gm In Sodium 100 50 Chloride 0.9% 50 ml @ 100 mls/hr IVPB Q8HR [facility] Rx# :[id number] propofoL 1,000 mg In 100.507 Empty Bag 1 bag @ 15 MCG/ KG/MIN 7.02 mls/hr IV . [id number] [facility] Rx#:[id number] Oral 100 300 Other 90 Output: Urine 240 235 130 Other: Voiding Method Indwelling Catheter Indwelling Catheter Indwelling Catheter ABP, PAP, CO, CI - Last Documented Arterial Blood Pressure 146/54 - Exam GENERAL DESCRIPTION: An elderly male lying in bed RESPIRATORY SYSTEM: Unlabored breathing , decreased breath sounds at bases HEART: S1 S2 regular rate and rhythm , ABDOMEN: Soft , no tenderness EXTREMITIES: No edema feet - Labs CBC & Chem 7: 05/01/23 04:35 05/01/23 04:35 Labs: Abnormal Lab Results - Last 24 Hours (Table) 04/30/23 04/30/23 04/30/23 Range/Units 13:22 17:47 20:24 WBC (3.8-10.6) k/uL RBC (4.30-5.90) m/uL Hgb (13.0-17.5) gm/dL Hct (39.0-53.0) % RDW (11.5-15.5) % Neutrophils # (1.3-7.7) k/uL Sodium (137-145) mmol/L Chloride (98-107) mmol/L Carbon Dioxide (22-30) mmol/L Glucose (74-99) mg/dL POC Glucose (mg/dL) 142 H 142 H 144 H (70-110) mg/dL Calcium (8.4-10.2) mg/dL Alkaline Phosphatase (38-126) U/L Total Protein (6.3-8.2) g/dL Albumin (3.5-5.0) g/dL 05/01/23 05/01/23 05/01/23 Range/Units 00:10 04:35 04:35 WBC 13.5 H (3.8-10.6) k/uL RBC 3.22 L (4.30-5.90) m/uL Hgb 8.9 L D (13.0-17.5) gm/dL Hct 27.5 L (39.0-53.0) % RDW 18.3 H (11.5-15.5) % Neutrophils # 10.7 H (1.3-7.7) k/uL Sodium 134 L (137-145) mmol/L Chloride 108 H (98-107) mmol/L Carbon Dioxide 20 L (22-30) mmol/L Glucose 121 H (74-99) mg/dL POC Glucose (mg/dL) 158 H (70-110) mg/dL Calcium 7.8 L (8.4-10.2) mg/dL Alkaline Phosphatase 163 H (38-126) U/L Total Protein 5.3 L (6.3-8.2) g/dL Albumin 2.1 L (3.5-5.0) g/dL 05/01/23 Range/Units 11:52 WBC (3.8-10.6) k/uL RBC (4.30-5.90) m/uL Hgb (13.0-17.5) gm/dL Hct (39.0-53.0) % RDW (11.5-15.5) % Neutrophils # (1.3-7.7) k/uL Sodium (137-145) mmol/L Chloride (98-107) mmol/L Carbon Dioxide (22-30) mmol/L Glucose (74-99) mg/dL POC Glucose (mg/dL) 157 H (70-110) mg/dL Calcium (8.4-10.2) mg/dL Alkaline Phosphatase (38-126) U/L Total Protein (6.3-8.2) g/dL Albumin (3.5-5.0) g/dL Microbiology - Last 24 Hours (Table) 04/29/23 20:18 Gram Stain - Preliminary Back Tissue Culture - Preliminary 04/30/23 20:18 Gram Stain - Preliminary Back Wound Culture - Preliminary 04/29/23 20:18 Gram Stain - Preliminary Back Wound Culture - Preliminary 04/29/23 20:18 Gram Stain - Preliminary Back Wound Culture - Preliminary 04/29/23 20:18 Gram Stain - Preliminary Back Wound Culture - Preliminary 04/27/23 14:12 Gram Stain - Preliminary Knee - Left Body Fluid Culture - Preliminary Assessment and Plan (1) Allergy to sulfa drugs Current Visit: Yes Status: Acute Code(s): Z88.2 - ALLERGY STATUS TO SULFONAMIDES SNOMED Code(s): 92066842 (2) Bacteremia due to Streptococcus Current Visit: Yes Status: Acute Code(s): R78.81 - BACTEREMIA; B95.5 - UNSP STREPTOCOCCUS THE CAUSE OF DISEASES CLASSD [facility] SNOMED Code(s): 999196467820 (3) Septic arthritis of knee, left Current Visit: Yes Status: Acute Code(s): M00.9 - PYOGENIC ARTHRITIS, UNSPECIFIED SNOMED Code(s): 847992444 (4) Abscess in epidural space of lumbar spine Current Visit: Yes Status: Acute Code(s): G06.1 - INTRASPINAL ABSCESS AND GRANULOMA SNOMED Code(s): 405932877 (5) Discitis of lumbar region Current Visit: Yes Status: Acute Code(s): M46.46 - DISCITIS, UNSPECIFIED, LUMBAR REGION SNOMED Code(s): 729446752 Plan: 1patient presented to hospital with weakness fever did have Streptococcus agalactiae bacteremia in this patient who did have a significant swelling to the left knee along with the stiffness with aspiration of the left knee cell count more than 20,000 white cell high clinical suspicious for septic arthritis likely related to streptococci 2- -blood cultures has been repeated and so far negative 3patient did have an MRI of the lumbar spine suspicious for epidural abscess from T12-L2 and possible discitis L1-L2, MRI of the cervical spine was negative for any epidural abscess MRI of the thoracic spine did show extension of the abscess to T11 vertebra, the patient status post drainage of the epidural abscess along with laminectomy and hardware placement on 04/29/2023, OR cultures currently pending 4-patient is afebrile and has been extubated this morning, patient to continue with cefazolin 2 g every 8 hours, awaiting OR cultures to be finalized and continue with supportive care Dictation was produced using [email or web address] dictation software. please excuse any grammatical, word or spelling errors. Time with Patient: Less than 30
[2023-05-01] MEDS: MAGNESIUM HYDROXIDE 2,400 MG/30 ML CUP PO SCH (14:45)
--- NOTE | 2023-05-01 14:56 | P.PN ---
Subjective Progress Note Date: 05/01/23 Principal diagnosis: Bacteremia, possible left periprosthetic knee infection, back pain, epidural abscess Patient was evaluated today, he is resting in his ICU bed. Patient seems more awake today, he was extubated with no difficulty yesterday. Urinary catheter output is minimal. Overall output in Hemovac drain since surgery but about 200 mL. Nursing did have patient up at bedside and in chair today, surgical dressing remains intact with no obvious drainage. Multiple medical specialties her following the patient at this time. He has been downgraded to a medical/surgical floor. Objective - Vital Signs Vital signs: Vital Signs Temp 98.3 F 05/01/23 14:00 Pulse 85 05/01/23 14:00 Resp 18 05/01/23 14:00 BP 118/54 05/01/23 14:00 Pulse Ox 98 05/01/23 14:00 FiO2 40 04/30/23 13:43 Intake & Output 04/30/23 05/01/23 05/01/23 18:59 06:59 18:59 Intake Total 2723.421 2414 1220 Output Total 240 235 130 Balance 2020.289 0664 1090 Weight 88.3 kg Intake: IV 400 120 70 KVO 50 ns 350 120 70 Intake, IV Titration 3045.528 0421 750 Amount Lactated Ringers 1,000 ml 500 1200 700 @ 100 mls/hr IV .Q10H [facility] Rx#:[id number] Magnesium Sulfate-D5w Pmx 300 1 gm In Dextrose/Water 1 100ml.bag @ 100 mls/hr IVPB Q1H [facility] Rx#: [id number] Norepinephrine 4 mg In 111.693 Sodium Chloride 0.9% 250 ml @ 0.03 MCG/KG/MIN 8. 915 mls/hr IV .Q24H [facility] Rx#:[id number] ceFAZolin 2 gm In Sodium 100 50 Chloride 0.9% 50 ml @ 100 mls/hr IVPB Q8HR [facility] Rx# :[id number] propofoL 1,000 mg In 100.507 Empty Bag 1 bag @ 15 MCG/ KG/MIN 7.02 mls/hr IV . [id number] [facility] Rx#:[id number] Oral 100 400 Other 90 Output: Urine 240 235 130 Other: Voiding Method Indwelling Catheter Indwelling Catheter Indwelling Catheter ABP, PAP, CO, CI - Last Documented Arterial Blood Pressure 146/54 - Exam Gen: AOx3, NAD VSS stable at this time Integument: Surgical bandage remains in good position and condition, no active drainage Palpation: Mild tenderness with palpation noted to the lower lumbar paraspinal region ROM: Full range of motion in all major muscle use of the bilateral upper and lower extremities, no focal deficits Sensory Exam: Senory exam to light touch is intact C5-T1 Senosry exam to light touch is intact L2-S1 Motor: 5/5 strength appreciated in the bilateral upper extremities with shoulder elevation, shoulder abduction, wrist extension, wrist flexion, elbow extension, elbow flexion, artificial teeth inspector 5/5 strength appreciated in bilateral lower extremities with, plantar flexion, dorsiflexion, EHL, FHL 4/5 strength appreciated in the bilateral lower extremities with hip flexion, knee extension, knee flexion Reflexes: 2/4 in all UE and LE Negative Diana's bilaterally Negative Babinski bilaterally Negative clonus bilaterally - Labs CBC & Chem 7: 05/01/23 04:35 05/01/23 04:35 Labs: Abnormal Lab Results - Last 24 Hours (Table) 04/30/23 04/30/23 05/01/23 Range/Units 17:47 20:24 00:10 WBC (3.8-10.6) k/uL RBC (4.30-5.90) m/uL Hgb (13.0-17.5) gm/dL Hct (39.0-53.0) % RDW (11.5-15.5) % Neutrophils # (1.3-7.7) k/uL Sodium (137-145) mmol/L Chloride (98-107) mmol/L Carbon Dioxide (22-30) mmol/L Glucose (74-99) mg/dL POC Glucose (mg/dL) 142 H 144 H 158 H (70-110) mg/dL Calcium (8.4-10.2) mg/dL Alkaline Phosphatase (38-126) U/L Total Protein (6.3-8.2) g/dL Albumin (3.5-5.0) g/dL 05/01/23 05/01/23 05/01/23 Range/Units 04:35 04:35 11:52 WBC 13.5 H (3.8-10.6) k/uL RBC 3.22 L (4.30-5.90) m/uL Hgb 8.9 L D (13.0-17.5) gm/dL Hct 27.5 L (39.0-53.0) % RDW 18.3 H (11.5-15.5) % Neutrophils # 10.7 H (1.3-7.7) k/uL Sodium 134 L (137-145) mmol/L Chloride 108 H (98-107) mmol/L Carbon Dioxide 20 L (22-30) mmol/L Glucose 121 H (74-99) mg/dL POC Glucose (mg/dL) 157 H (70-110) mg/dL Calcium 7.8 L (8.4-10.2) mg/dL Alkaline Phosphatase 163 H (38-126) U/L Total Protein 5.3 L (6.3-8.2) g/dL Albumin 2.1 L (3.5-5.0) g/dL Microbiology - Last 24 Hours (Table) 04/29/23 20:18 Gram Stain - Preliminary Back Tissue Culture - Preliminary 04/30/23 20:18 Gram Stain - Preliminary Back Wound Culture - Preliminary 04/29/23 20:18 Gram Stain - Preliminary Back Wound Culture - Preliminary 04/29/23 20:18 Gram Stain - Preliminary Back Wound Culture - Preliminary 04/29/23 20:18 Gram Stain - Preliminary Back Wound Culture - Preliminary 04/27/23 14:12 Gram Stain - Preliminary Knee - Left Body Fluid Culture - Preliminary Assessment and Plan Assessment: Left knee effusion Possible left knee periprosthetic infection Bacteremia Postoperative day #2 status post T10-L4 posterior lateral decompression and fusion, interbody fusion at L1-L2, epidural abscess evacuation Cirrhosis Multiple medical comorbidities Plan: Pain control, continue current medications. Continue use of multiple stool softeners to help with constipation DVT prophylaxis, okay to utilize heparin 5000 units every 12 Monitor surgical dressing, likely change the next 2448 hours. Monitor output and drain at this time, I expect drainage output to increases patient begins to ambulate more Continue IV antibiotics at this time Weight-bear as tolerated, recommend walker PT/OT evaluation Other medical imaging specialist recommendations appreciated Continue to follow during hospital stay Time with Patient: Less than 30
[2023-05-01 16:23] LABS: Glucose,Whole Blood 141 mg/dL (70-110)
[2023-05-01] MEDS: COLESEVELAM 625 MG TAB PO SCH (17:46)
[2023-05-01] MEDS: guaiFENesin SYRUP 100MG/5ML 200 MG/10 ML CUP PO PRN (18:47)
[2023-05-01 21:06] LABS: Glucose,Whole Blood 138 mg/dL (70-110)
--- NOTE | 2023-05-01 23:26 | P.PN ---
Subjective This is a 67-year-old male patient of Dr. Loli Campbell, patient has medical history of abdominal ascites and liver cirrhosis, chronic alcoholism, diabetes mellitus, hemorrhoids, gastroesophageal reflux disease. Patient follows with dr rocco turcios underwent upper and lower endoscopy in January of 2023 has history of esophageal varices which underwent banding in Jan as well. Has a history of left lower extremity total knee arthroplasty done a year ago, initially presented to [facility] with left lower extremity edema with concern for infected prosthetic of the left knee. He presented to [facility] with fevers progressive weakness and back pain. States fever was as high as 104. He was also anemic hemoglobin 6.5 requiring 2 unit of PRBC. Patient was found to have strep agalactaie bacteremia with features of sepsis over at [facility]. He was treated with IV ceftriaxone 2 grams. Patient also with recent influenza infection and hypoxia at [facility]. He had a venous doppler of the left leg at [facility] negative for acute DVT. He underwent arthrocentesis of the left knee joint effusion showing 20,000 WBCs and suspicious for infected prosthesis was recommended to transfer to [facility] for further evaluation by Dr Bishop. Yesterday before transfer he underwent work up for abdominal ascites which he has undergo paracentesis in the past, he had an abdominal ultrasound showing significant amount of intraabdominal ascites. IR consulted. He is admitted to this hospital with consults placed to [place] and infectious disease. 04/24/2023 Patient evaluated today sitting up in bed. He was seen in consultation by ID who has changed antibiotics to IV cefazolin from ceftriaxone with plans to repeat blood culture. Underwent paracentesis 1.5 L off. Sodium 135, potassium 3.3, BUN 8, creatinine 0.50, magnesium 1.8, CRP 6.2. Orthopedics not recommending any surgical intervention at this time. 04/25/2023 Patient is evaluated today resting in bed. pts is at the bedside and plan of care was discussed thoroughly. Patient remains on IV Cefazolin with repeat blood cultures pending and negative so far. Infectious disease is following this case. He is status post paracentesis. Again orthopedics not recommending any surgical intervention for the right knee septic arthritis. 04/26/2023 Patient is still complaining from left knee swelling, patient states is better, pain controlled no erythema. Orthopedic surgery planning for surgery for infected prosthesis onto stages first one on 04/29 MRI of the lumbar spine is ordered to rule out infection Cardiology team preoperative evaluation is ordered Patient remains on IV cefazolin Repeat blood culture/6 still show no growth ID team on the case 04/27/2023 Patient with minimal back pain and his left knee with no significant pain is still warm and swollen with no redness. Initially orthopedic team are planning for surgical debridement of his left knee. However MRI of the lumbar spine showing epidural abscess of the distal thoracic and irrigated proximal lumbar vertebrae. Orthopedic team still on the case with follow the patient and needs surgery was held and replaced to do lumbar surgery with ( T11-L3 decompression and fusion along with epidural abscess/phlegmon evacuation for 04/29/2023.) Preoperative cardiac evaluation is requested Chest pain or dyspnea No change in urine or bowel habits. No fever. Monitor blood pressure Continue with cefazolin I'm resuming the care of the patient on 05/01/2023 Patient's is status post T10-L4 decompression and fusion of the spine and debridement of epidural abscess on 04/29. Postoperatively patient had to be intubated, he got extubated yesterday, his doing well, minimal back pain and about 5/10 in severity, his left knee pain is 0/10 and looks less swollen, nontender and non-erythematous Denies any other complaints He has Streptococcus agalactiae bacteremia Patient currently covered with cefazolin Patient is a transferred out of the ICU today Objective - Vital Signs Vital signs: Vital Signs Temp 98.6 F 05/01/23 08:00 Pulse 96 05/01/23 09:00 Resp 14 05/01/23 09:00 BP 116/66 05/01/23 09:00 Pulse Ox 95 05/01/23 09:00 FiO2 40 04/30/23 13:43 Intake & Output 04/30/23 05/01/23 05/01/23 18:59 06:59 18:59 Intake Total 4022.348 5120 580 Output Total 240 235 70 Balance 5284.739 3446 510 Weight 88.3 kg Intake: IV 400 120 30 KVO 50 ns 350 120 30 Intake, IV Titration 6652.364 5130 350 Amount Lactated Ringers 1,000 ml 500 1200 300 @ 100 mls/hr IV .Q10H [facility] Rx#:[id number] Magnesium Sulfate-D5w Pmx 300 1 gm In Dextrose/Water 1 100ml.bag @ 100 mls/hr IVPB Q1H [facility] Rx#: [id number] Norepinephrine 4 mg In 111.693 Sodium Chloride 0.9% 250 ml @ 0.03 MCG/KG/MIN 8. 915 mls/hr IV .Q24H [facility] Rx#:[id number] ceFAZolin 2 gm In Sodium 100 50 Chloride 0.9% 50 ml @ 100 mls/hr IVPB Q8HR [facility] Rx# :[id number] propofoL 1,000 mg In 100.507 Empty Bag 1 bag @ 15 MCG/ KG/MIN 7.02 mls/hr IV . [id number] [facility] Rx#:[id number] Oral 100 200 Other 90 Output: Urine 240 235 70 Other: Voiding Method Indwelling Catheter Indwelling Catheter Indwelling Catheter ABP, PAP, CO, CI - Last Documented Arterial Blood Pressure 146/54 - Exam GENERAL: The patient is alert and oriented x3, not in any acute distress. Well developed, well nourished. HEENT: Pupils are round and equally reacting to light. EOMI. No scleral icterus. No conjunctival pallor. Normocephalic, atraumatic. No pharyngeal erythema. No thyromegaly. CARDIOVASCULAR: S1 and S2 present. No murmurs, rubs, or gallops. PULMONARY: Chest is clear to auscultation, no wheezing , no crackles. ABDOMEN: Soft, nontender, nondistended, normoactive bowel sounds. No palpable organomegaly. -MUSCULOSKELETAL: No joint swelling or deformity. Posterior spinal surgical wound with a dressing in place, rest of exam is deferred to surgery team -EXTREMITIES: No cyanosis, clubbing, or pedal edema. Left knee is swollen, improving NEUROLOGICAL: Gross neurological examination did not reveal any focal deficits. SKIN: No rashes. no petechiae. - Labs CBC & Chem 7: 05/01/23 04:35 05/01/23 04:35 Labs: Abnormal Lab Results - Last 24 Hours (Table) 04/30/23 04/30/23 04/30/23 Range/Units 13:22 17:47 20:24 WBC (3.8-10.6) k/uL RBC (4.30-5.90) m/uL Hgb (13.0-17.5) gm/dL Hct (39.0-53.0) % RDW (11.5-15.5) % Neutrophils # (1.3-7.7) k/uL Sodium (137-145) mmol/L Chloride (98-107) mmol/L Carbon Dioxide (22-30) mmol/L Glucose (74-99) mg/dL POC Glucose (mg/dL) 142 H 142 H 144 H (70-110) mg/dL Calcium (8.4-10.2) mg/dL Alkaline Phosphatase (38-126) U/L Total Protein (6.3-8.2) g/dL Albumin (3.5-5.0) g/dL 05/01/23 05/01/23 05/01/23 Range/Units 00:10 04:35 04:35 WBC 13.5 H (3.8-10.6) k/uL RBC 3.22 L (4.30-5.90) m/uL Hgb 8.9 L D (13.0-17.5) gm/dL Hct 27.5 L (39.0-53.0) % RDW 18.3 H (11.5-15.5) % Neutrophils # 10.7 H (1.3-7.7) k/uL Sodium 134 L (137-145) mmol/L Chloride 108 H (98-107) mmol/L Carbon Dioxide 20 L (22-30) mmol/L Glucose 121 H (74-99) mg/dL POC Glucose (mg/dL) 158 H (70-110) mg/dL Calcium 7.8 L (8.4-10.2) mg/dL Alkaline Phosphatase 163 H (38-126) U/L Total Protein 5.3 L (6.3-8.2) g/dL Albumin 2.1 L (3.5-5.0) g/dL Microbiology - Last 24 Hours (Table) 04/29/23 20:18 Gram Stain - Preliminary Back 04/30/23 20:18 Gram Stain - Preliminary Back 04/29/23 20:18 Gram Stain - Preliminary Back 04/27/23 14:12 Gram Stain - Preliminary Knee - Left Body Fluid Culture - Preliminary 04/29/23 20:18 Gram Stain - Preliminary Back 04/29/23 20:18 Gram Stain - Preliminary Back Assessment and Plan Assessment: -Strep Algalactaie bacteremia possible source of infection the left knee cont inue on the IV rocephin 2g was started on at [facility], ID consultation in place for further recommendations most recent blood culture showing clearing of the bacteremia. Repeat cultures have been taken here and pending. Antibiotics have been changed to IV cefazolin. Surgicel planning for knee procedure on 04/29 with preop cardiac evaluation ( this plan for surgery was held because of his new lumbar abscess) -Back pain, MRI of the lumbar spine: Epidural abscess. Orthopedic team are planning for T11-L3 decompression and fusion along with epidural abscess/phlegmon evacuation for 04/29/2023. -Sepsis source of infection possibly an infected left knee prosthesis s/p arthrocentesis of the left knee at [facility] following -History of esophageal varices with banding in january -Hypokalemia patient will receive oral supplementation and repeat labs in the AM -Hx of cirrhosis, abdominal ascites ultrasound showing significant ascites s/p paracentesis with 1.5 L off and patient has been started on aldactone and lasix BID. -Hx of GERD -Diabetes Mellitus type 2 hgb A1C 6.9 continue on accuchecks achs and sliding scale insulin. -History of left TKA -Hypertension continues on losartan BID and atenolol. -Hemorrhoids -Chronic alcohol use monitor for alcohol withdrawal Hx of gout continue on allopurinol, GI prophylaxis DVT prophylaxis
[2023-05-02] MEDS: HYDROcodone/APAP 10-325MG 1 EACH TAB PO PRN ×5 (00:53→23:57)
[2023-05-02] MEDS: LACTATED RINGERS 1,000 ML IV SCH ×2 (05:11→15:43)
[2023-05-02 05:48] LABS: Glucose,Whole Blood 114 mg/dL (70-110)
[2023-05-02] MEDS: INSULIN ASPART (NovoLOG) 100 UNIT/ML VIAL SQ SCH ×4 (05:48→19:46)
[2023-05-02] MEDS: PANTOPRAZOLE 40 MG TABLET PO SCH (06:28)
[2023-05-02] MEDS: HEPARIN SODIUM,PORCINE 5,000 UNIT/ML 1 ML VIAL SQ SCH ×2 (08:45→19:49)
[2023-05-02] MEDS: MAGNESIUM HYDROXIDE 2,400 MG/30 ML CUP PO SCH (08:45)
[2023-05-02] MEDS: ASPIRIN 81 MG PO SCH (08:46)
[2023-05-02] MEDS: allopurinoL 300 MG TAB PO SCH (08:46)
[2023-05-02] MEDS: atenoloL 50 MG TAB PO SCH (08:46)
[2023-05-02] MEDS: FUROSEMIDE 20 MG TAB PO SCH ×2 (08:46→15:43)
[2023-05-02] MEDS: CHOLECALCIFEROL 25 MCG (1000 IU) TABLET PO SCH (08:46)
[2023-05-02] MEDS: SPIRONOLACTONE 25 MG TAB PO SCH (08:46)
[2023-05-02] MEDS: ASCORBIC ACID 500 MG TAB PO SCH (08:46)
[2023-05-02] MEDS: SENNOSIDES-DOCUSATE SODIUM 1 EACH TAB PO SCH (08:46)
[2023-05-02] MEDS: MULTIVITAMINS, THERA 1 EACH TAB PO SCH (08:47)
[2023-05-02] MEDS: LOSARTAN 50 MG TAB PO SCH ×2 (08:47→19:50)
[2023-05-02 11:21] LABS: Glucose,Whole Blood 149 mg/dL (70-110)
--- NOTE | 2023-05-02 12:57 | P.PN ---
Subjective Progress Note Date: 05/02/23 Principal diagnosis: Bacteremia, possible left periprosthetic knee infection, back pain, epidural abscess Patient was evaluated today, he is resting in his hospital bed, he is has been transferred to the medical/surgical floor. Patient seems quite out of it today, he is a and O 3 but doesn't answer all my questions accurately pertaining to other things. He continues to have significant abdominal swelling. Patient has a lot of swelling noted in the bilateral lower extremities, the knee effusion on the left side seems to be worsened. Patient hasn't been out of bed at this time. The drain in the lumbar spine region remains intact. There are no family members today present at bedside. He does admit to discomfort in his low back with movement. Objective - Vital Signs Vital signs: Vital Signs Temp 99.0 F 05/02/23 06:48 Pulse 95 05/02/23 06:48 Resp 17 05/02/23 06:48 BP 108/72 05/02/23 06:48 Pulse Ox 92 L 05/02/23 09:21 FiO2 40 04/30/23 13:43 Intake & Output 05/01/23 05/02/23 05/02/23 18:59 06:59 18:59 Intake Total 1890 1000 Output Total 280 70 Balance 1610 930 Intake: IV 90 ns 90 Intake, IV Titration 1200 1000 Amount Lactated Ringers 1,000 ml 1100 1000 @ 100 mls/hr IV .Q10H [facility] Rx#:[id number] ceFAZolin 2 gm In Sodium 100 Chloride 0.9% 50 ml @ 100 mls/hr IVPB Q8HR [facility] Rx# :[id number] Oral 600 Output: Drainage 70 Right Back 70 Urine 280 Other: Voiding Method Indwelling Catheter Indwelling Catheter Indwelling Catheter ABP, PAP, CO, CI - Last Documented Arterial Blood Pressure 146/54 - Exam Gen: AOx3, NAD VSS stable at this time Integument: Surgical bandage remains in good position and condition, no active drainage Palpation: Mild tenderness with palpation noted to the lower lumbar paraspinal region ROM: Full range of motion in all major muscle use of the bilateral upper and lower extremities, no focal deficits Sensory Exam: Senory exam to light touch is intact C5-T1 Senosry exam to light touch is intact L2-S1 Motor: 5/5 strength appreciated in the bilateral upper extremities with shoulder elevation, shoulder abduction, wrist extension, wrist flexion, elbow extension, elbow flexion, sdc teacher 5/5 strength appreciated in bilateral lower extremities with, plantar flexion, dorsiflexion, EHL, FHL 4/5 strength appreciated in the bilateral lower extremities with hip flexion, knee extension, knee flexion Reflexes: 2/4 in all UE and LE Negative Diana's bilaterally Negative Babinski bilaterally Negative clonus bilaterally - Labs CBC & Chem 7: 05/01/23 04:35 05/01/23 04:35 Labs: Abnormal Lab Results - Last 24 Hours (Table) 05/01/23 05/01/23 05/02/23 Range/Units 16:21 21:01 05:47 POC Glucose (mg/dL) 141 H 138 H 114 H (70-110) mg/dL 05/02/23 Range/Units 11:17 POC Glucose (mg/dL) 149 H (70-110) mg/dL Microbiology - Last 24 Hours (Table) 04/27/23 14:12 Anaerobic Culture - Final Knee - Left 04/27/23 14:12 Gram Stain - Preliminary Knee - Left Body Fluid Culture - Preliminary 04/29/23 20:18 Gram Stain - Preliminary Back Tissue Culture - Preliminary 04/30/23 20:18 Gram Stain - Preliminary Back Wound Culture - Preliminary 04/29/23 20:18 Gram Stain - Preliminary Back Wound Culture - Preliminary 04/29/23 20:18 Gram Stain - Preliminary Back Wound Culture - Preliminary 04/29/23 20:18 Gram Stain - Preliminary Back Wound Culture - Preliminary Assessment and Plan Assessment: Left knee effusion Possible left knee periprosthetic infection Constipation Bacteremia Postoperative day #2 status post T10-L4 posterior lateral decompression and fusion, interbody fusion at L1-L2, epidural abscess evacuation Ascites Cirrhosis Multiple medical comorbidities Plan: Pain control, continue current medications. Continue use of multiple stool softeners to help with constipation DVT prophylaxis, okay to utilize heparin 5000 units every 12 Monitor surgical dressing, likely change the next 2448 hours. Monitor output and drain at this time, I expect drainage output to increases patient begins to ambulate more Continue IV antibiotics at this time Discussed with nursing, consult has been placed for both general surgery and interventional radiology to assess the patient for his abdominal swelling/ascites. I did order a CT of the abdomen with and without contrast. Patient cannot remember the last time he had a bowel movement. Weight-bear as tolerated, recommend walker PT/OT evaluation Other durable medical equipment technician recommendations appreciated Continue to follow during hospital stay Time with Patient: Less than 30
--- NOTE | 2023-05-02 13:37 | P.GSCN ---
History of Present Illness Consult date: 05/02/23 History of present illness: Patient admitted for sepsis. Surgery consulted for constipation. Last colonoscopy within past 6 months with polyps. No recollection for divert iculosis. Reports lower abdominal pain. Recommend imaging studies for diverticulitis. No peritonitis on exam, but distended. CT abdomen and pelvis is pending at this time. Past Medical History Past Medical History: Diabetes Mellitus, GERD/Reflux, Hyperlipidemia, Hypertension, Osteoarthritis (OA) Additional Past Medical History / Comment(s): GOUT. LOWER BACK PAIN. HX OF COLON POLYP. ARTHRITIS KNEES. HX ESOPHAGEAL VARICES WITH BANDING. History of Any Multi-Drug Resistant Organisms: None Reported Past Surgical History: Cholecystectomy, Joint Replacement, Orthopedic Surgery Additional Past Surgical History / Comment(s): Surgery for deviated septum, bila teral cataracts removed, right knee arthroscopy, wisdom teeth removed, EGD with ESOPHAGEAL BANDS at [place], COLONOSCOPIES, left knee replacement. Past Anesthesia/Blood Transfusion Reactions: No Reported Reaction Additional Past Anesthesia/Blood Transfusion Reaction / Comm: Woke up once when IV infiltrated during EGD. Past Psychological History: No Psychological Hx Reported Smoking Status: Former smoker Past Alcohol Use History: Occasional Additional Past Alcohol Use History / Comment(s): STARTED SMOKING AT AGE 18, QUIT AT AGE 22, SMOKED 1/2 PPD. Past Drug Use History: None Reported - Past Family History Mother Family Medical History: No Reported History Medications and Allergies Home Medications Medication Instructions Recorded Confirmed Type Colesevelam [Welchol] 1,875 tab PO AC-SUPPER 09/18/14 04/23/23 History allopurinoL [Zyloprim] 300 mg PO DAILY 09/18/14 04/23/23 History Multivitamin/Iron/Folic Acid 1 tab PO DAILY 11/19/17 04/22/23 History [Centrum Adults Tablet] Omeprazole 20 mg PO BID 03/07/21 04/22/23 History Losartan Potassium 50 mg PO BID 10/10/21 04/22/23 History atenoloL [Tenormin] 50 mg PO DAILY 10/10/21 04/22/23 History Ascorbic Acid [Vitamin C] 1,000 mg PO DAILY 01/28/23 04/22/23 History Aspirin [Adult Low Dose Aspirin EC] 81 mg PO DAILY 01/28/23 04/22/23 History Cholecalciferol [Vitamin D3 (25 50 mcg PO DAILY 04/22/23 04/22/23 History Mcg = 1000 Iu)] Allergies Allergy/AdvReac Type Severity Reaction Status Date / Time Sulfa (Sulfonamide Allergy Rash/Hives Verified 04/29/23 14:18 Antibiotics) Surgical - Exam Vital Signs Temp Pulse Resp BP Pulse Ox 98.8 F 83 15 162/73 97 04/22/23 20:36 04/22/23 20:36 04/22/23 20:36 04/22/23 20:36 04/22/23 20:36 Results - Labs 05/01/23 04:35 05/01/23 04:35 Abnormal Lab Results - Last 24 Hours (Table) 05/01/23 05/01/23 05/02/23 Range/Units 16:21 21:01 05:47 POC Glucose (mg/dL) 141 H 138 H 114 H (70-110) mg/dL 05/02/23 Range/Units 11:17 POC Glucose (mg/dL) 149 H (70-110) mg/dL Microbiology - Last 24 Hours (Table) 04/27/23 14:12 Anaerobic Culture - Final Knee - Left 04/27/23 14:12 Gram Stain - Preliminary Knee - Left Body Fluid Culture - Preliminary 04/29/23 20:18 Gram Stain - Preliminary Back Tissue Culture - Preliminary 04/30/23 20:18 Gram Stain - Preliminary Back Wound Culture - Preliminary 04/29/23 20:18 Gram Stain - Preliminary Back Wound Culture - Preliminary 04/29/23 20:18 Gram Stain - Preliminary Back Wound Culture - Preliminary 04/29/23 20:18 Gram Stain - Preliminary Back Wound Culture - Preliminary
--- NOTE | 2023-05-02 14:44 | P.PN ---
Subjective Progress Note Date: 05/02/23 This is a 67-year-old male who was admitted back on April 23. He apparently has a history of hypertension, hyperlipidemia, diabetes, esophageal cancer, liver cirrhosis, and was admitted for a febrile illness. The patient has been in the hospital since that time, and yesterday, had a T11 through L3 de compression, for epidural abscess. The patient was brought back to the intensive care unit on the ventilator. We were consulted. The patient is currently on volume assist control, rate 16, tidal volume 450, FiO2 40%, PEEP of 5. Blood gases show pO2 of 121, pCO2 33, pH is 7.41. The patient is currently on propofol at 25 mcg/kg/m, saline at 50 mL an hour. The patient's also getting norepinephrine at 8 mcg/m. Today's postoperative day #1. There is no operative report in the chart. Laboratory data includes a white count 11.8, he will been 10.8, hematocrit 33.2, and platelet count 344,000. Sodium 136, potassium 4.2, chlorides 111, CO2 18, BUN 10, and creatinine 0.49. The rest of the co mprehensive metabolic profile looks okay. Albumin is a bit low at 2.4. Culture data is thus far negative. Chest x-rays reviewed. Progress note dated 05/01/2023. 67-year-old male seen in the intensive care unit, room 255. The patient was successfully extubated from mechanical ventilation yesterday, April 30. Currently, he's on 2 L by nasal cannula. He is getting lactated Ringer's at 100 mL an hour. He has no complaints today, and the nurse tells me he had an uneventful night. White count 13.5, hemoglobin 8.9, hematocrit 27.5, with a normal platelet count. Sodium 134, potassium 4.3, chlorides 108, CO2 20, BUN 18, creatinine 1.18. Glucose 121. Albumin is 2.1. Chest x-ray shows a minimal left lower lobe infiltrate. The patient is seen today 05/02/2023 in follow-up on the regular medical floor. He is currently resting comfortably in bed. Awake and alert in no acute distress. He is maintaining O2 saturations in the 90s on room air. He has normal saline at 50 MLS per hour. He is continued on antibiotics in the form of Ancef. He is status post 2 units of packed red blood cells this admission. Current hemoglobin 8.9. Wound cultures from his back revealed no growth. Left knee cultures revealed no growth. Ascites cultures revealed no growth. Blood sugar 114. He is continued on DuoNeb inhalations. Heparin for DVT prophylaxis. Oral diuretics. Objective - Vital Signs Vital signs: Vital Signs Temp 98.6 F 05/02/23 12:32 Pulse 72 05/02/23 12:32 Resp 18 05/02/23 12:32 BP 114/48 05/02/23 12:32 Pulse Ox 93 L 05/02/23 12:32 FiO2 40 04/30/23 13:43 Intake & Output 05/01/23 05/02/23 05/02/23 18:59 06:59 18:59 Intake Total 1890 1000 Output Total 280 70 350 Balance 1610 930 -350 Intake: IV 90 ns 90 Intake, IV Titration 1200 1000 Amount Lactated Ringers 1,000 ml 1100 1000 @ 100 mls/hr IV .Q10H [facility] Rx#:[id number] ceFAZolin 2 gm In Sodium 100 Chloride 0.9% 50 ml @ 100 mls/hr IVPB Q8HR [facility] Rx# :[id number] Oral 600 Output: Drainage 70 Right Back 70 Urine 280 350 Other: Voiding Method Indwelling Catheter Indwelling Catheter Indwelling Catheter ABP, PAP, CO, CI - Last Documented Arterial Blood Pressure 146/54 - Exam GENERAL EXAM: Alert, pleasant 67-year-old male, on room air, fairly comfortable in no apparent distress. HEAD: Normocephalic. EYES: Normal reaction of pupils, equal size. NOSE: Clear with pink turbinates. THROAT: No erythema or exudates. NECK: No masses, no JVD. CHEST: No chest wall deformity. LUNGS: Equal air entry with no crackles, wheeze, rhonchi or dullness. CVS: S1 and S2 normal with no audible murmur, regular rhythm. ABDOMEN: Distended No hepatosplenomegaly, normal bowel sounds, no guarding or rigidity. SPINE: Surgical dressing dry and intact. Drain remains in place. SKIN: No rashes CENTRAL NERVOUS SYSTEM: No focal deficits, tone is normal in all 4 extremities. EXTREMITIES: There is 1-2+ peripheral edema. No clubbing, no cyanosis. Peripheral pulses are intact. - Labs CBC & Chem 7: 05/01/23 04:35 05/01/23 04:35 Labs: Abnormal Lab Results - Last 24 Hours (Table) 05/01/23 05/01/23 05/02/23 Range/Units 16:21 21:01 05:47 POC Glucose (mg/dL) 141 H 138 H 114 H (70-110) mg/dL 05/02/23 Range/Units 11:17 POC Glucose (mg/dL) 149 H (70-110) mg/dL Microbiology - Last 24 Hours (Table) 04/29/23 20:18 Gram Stain - Preliminary Back Tissue Culture - Preliminary 04/30/23 20:18 Gram Stain - Final Back Wound Culture - Final 04/29/23 20:18 Gram Stain - Final Back Wound Culture - Final 04/29/23 20:18 Gram Stain - Final Back Wound Culture - Final 04/29/23 20:18 Gram Stain - Final Back Wound Culture - Final 04/27/23 14:12 Anaerobic Culture - Final Knee - Left 04/27/23 14:12 Gram Stain - Preliminary Knee - Left Body Fluid Culture - Preliminary Assessment and Plan Assessment: Postop day #3, status post T11 through L3 decompression for epidural abscess. Routine postoperative ventilator management, with successful extubation 04/30/2023. Currently on room air Streptococcal bacteremia. Septic joint, left knee. History of esophageal varices. History of liver cirrhosis and ascites. History of gastroesophageal reflux disease. Diabetes mellitus. History of left TKA. History of hypertension. History of hyperlipidemia. History of gout. History of chronic alcohol use. Plan: The patient was seen and evaluated Labs and medications reviewed Stable and on room air Remains on Ancef Heparin for DVT prophylaxis Increase his activity as tolerated We will continue to follow I have personally seen and examined the patient, performed the documentation and the assessment and plan as written. Number of minutes spent on the visit: 10.
[2023-05-02] MEDS: IOPAMIDOL CONTRAST (ORAL USE) VIAL PO PRN ×2 (15:45→16:47)
[2023-05-02 16:13] LABS: Anisocytosis Slight; Basophils # (A) 0.1 k/uL (0-0.2); Basophils % (A) 1 %; Eosinophils # (A) 0.2 k/uL (0-0.7); Eosinophils % (A) 3 %; HCT 26.9 % (39.0-53.0); HGB 8.7 gm/dL (13.0-17.5); Hypochromasia Moderate; Lymphocytes # (A) 1.1 k/uL (1.0-4.8); Lymphocytes % (A) 13 %; MCH 28.4 pg (25.0-35.0); MCHC 32.4 g/dL (31.0-37.0); MCV 87.7 fL (80.0-100.0); Mean Platelet Volume 7.8; Monocytes # (A) 0.5 k/uL (0-1.0); Monocytes % (A) 5 %; Neutrophils # (A) 6.4 k/uL (1.3-7.7); Neutrophils % (A) 76 %; Platelet Count 202 k/uL (150-450); RBC 3.06 m/uL (4.30-5.90); WBC 8.4 k/uL (3.8-10.6)
[2023-05-02 16:30] LABS: ALT 11 U/L (4-49); AST 59 U/L (17-59); African American GFR (CKD) >90 (>60 ml/min/1.73 sqM); Albumin 2.3 g/dL (3.5-5.0); Albumin/Globulin Ratio 0.7; Alkaline Phosphatase 152 U/L (38-126); Anion Gap 7 mmol/L; Blood Urea Nitrogen 22 mg/dL (9-20); Calcium 8.2 mg/dL (8.4-10.2); Carbon Dioxide 21 mmol/L (22-30); Chloride 108 mmol/L (98-107); Globulin 3.3 g/dL; Glucose 109 mg/dL (74-99); Non-African American GFR(CKD) >90 (>60 ml/min/1.73 sqM); Potassium 4.4 mmol/L (3.5-5.1); Sodium 136 mmol/L (137-145); Total Bilirubin 0.6 mg/dL (0.2-1.3); Total Protein 5.6 g/dL (6.3-8.2)
[2023-05-02 16:38] LABS: Glucose,Whole Blood 90 mg/dL (70-110)
--- NOTE | 2023-05-02 16:50 | P.PN ---
Subjective Progress Note Date: 05/02/23 Principal diagnosis: Reason for follow-up with Streptococcus bacteremia and concern for possible left knee septic arthritis Patient is a 67-year-old male with a past medical history significant for chronic alcoholism cirrhosis diabetes mellitus reflux in this patient who did have a left knee arthroplasty done by Dr. Bishop patient recently presented to [facility] about a week ago for evaluation of fever patient did have Streptococcus agalactiae bacteremia and the patient was noticed to have some swelling to the left knee s/p aspirate with a white count of 20,000 concerning for septic need for the patient was transferred to [facility] to be evaluated by his orthopedic surgeon.Patient did have an MRI of the lumbar spine suspicious for epidural abscess from T12-L2 and possible discitis L1-L2 MRI cervical spine no epidural abscess MRI thoracic spine tissues extension of the abscess to the T11 vertebra. Patient is status post laminectomy and drainage of the epidural abscess and implant of rods and screws life spine provide left cage, procedure completed on 04/29/2023. On today's evaluation that is 05/02/2023, the patient remains to be afebrile, the patient is breathing comfortably on room air and the patient denies any shortness of breath, the patient denies chest pain or any cough , patient denies any nausea/vomiting abdominal pain or diarrhea, back pain is currently controlled Patient white count of 8.4, creatinine 0.71 OR cultures currently pending Objective - Vital Signs Vital signs: Vital Signs Temp 98.6 F 05/02/23 12:32 Pulse 72 05/02/23 12:32 Resp 18 05/02/23 12:32 BP 114/48 05/02/23 12:32 Pulse Ox 93 L 05/02/23 12:32 FiO2 40 04/30/23 13:43 Intake & Output 05/01/23 05/02/23 05/02/23 18:59 06:59 18:59 Intake Total 1890 1000 Output Total 280 70 350 Balance 1610 930 -350 Intake: IV 90 ns 90 Intake, IV Titration 1200 1000 Amount Lactated Ringers 1,000 ml 1100 1000 @ 100 mls/hr IV .Q10H [facility] Rx#:[id number] ceFAZolin 2 gm In Sodium 100 Chloride 0.9% 50 ml @ 100 mls/hr IVPB Q8HR [facility] Rx# :[id number] Oral 600 Output: Drainage 70 Right Back 70 Urine 280 350 Other: Voiding Method Indwelling Catheter Indwelling Catheter Indwelling Catheter ABP, PAP, CO, CI - Last Documented Arterial Blood Pressure 146/54 - Exam GENERAL DESCRIPTION: An elderly male lying in bed RESPIRATORY SYSTEM: Unlabored breathing , decreased breath sounds at bases HEART: S1 S2 regular rate and rhythm , ABDOMEN: Soft , no tenderness EXTREMITIES: No edema feet - Labs CBC & Chem 7: 05/02/23 15:45 05/02/23 15:45 Labs: Abnormal Lab Results - Last 24 Hours (Table) 05/01/23 05/02/23 05/02/23 Range/Units 21:01 05:47 11:17 RBC (4.30-5.90) m/uL Hgb (13.0-17.5) gm/dL Hct (39.0-53.0) % RDW (11.5-15.5) % Sodium (137-145) mmol/L Chloride (98-107) mmol/L Carbon Dioxide (22-30) mmol/L BUN (9-20) mg/dL Glucose (74-99) mg/dL POC Glucose (mg/dL) 138 H 114 H 149 H (70-110) mg/dL Calcium (8.4-10.2) mg/dL Alkaline Phosphatase (38-126) U/L Total Protein (6.3-8.2) g/dL Albumin (3.5-5.0) g/dL 05/02/23 05/02/23 Range/Units 15:45 15:45 RBC 3.06 L (4.30-5.90) m/uL Hgb 8.7 L (13.0-17.5) gm/dL Hct 26.9 L (39.0-53.0) % RDW 19.0 H (11.5-15.5) % Sodium 136 L (137-145) mmol/L Chloride 108 H (98-107) mmol/L Carbon Dioxide 21 L (22-30) mmol/L BUN 22 H (9-20) mg/dL Glucose 109 H (74-99) mg/dL POC Glucose (mg/dL) (70-110) mg/dL Calcium 8.2 L (8.4-10.2) mg/dL Alkaline Phosphatase 152 H (38-126) U/L Total Protein 5.6 L (6.3-8.2) g/dL Albumin 2.3 L (3.5-5.0) g/dL Microbiology - Last 24 Hours (Table) 04/29/23 20:18 Anaerobic Culture - Preliminary Back 04/29/23 20:18 Anaerobic Culture - Preliminary Back 04/29/23 20:18 Anaerobic Culture - Preliminary Back 04/29/23 20:18 Anaerobic Culture - Preliminary Back 04/29/23 20:18 Gram Stain - Preliminary Back Tissue Culture - Preliminary 04/30/23 20:18 Gram Stain - Final Back Wound Culture - Final 04/29/23 20:18 Gram Stain - Final Back Wound Culture - Final 04/29/23 20:18 Gram Stain - Final Back Wound Culture - Final 04/29/23 20:18 Gram Stain - Final Back Wound Culture - Final 04/27/23 14:12 Anaerobic Culture - Final Knee - Left 04/27/23 14:12 Gram Stain - Preliminary Knee - Left Body Fluid Culture - Preliminary Assessment and Plan (1) Allergy to sulfa drugs Current Visit: Yes Status: Acute Code(s): Z88.2 - ALLERGY STATUS TO SULFONAMIDES SNOMED Code(s): 21396298 (2) Bacteremia due to Streptococcus Current Visit: Yes Status: Acute Code(s): R78.81 - BACTEREMIA; B95.5 - UNSP STREPTOCOCCUS THE CAUSE [facility] SNOMED Code(s): 795227216272 (3) Septic arthritis of knee, left Current Visit: Yes Status: Acute Code(s): M00.9 - PYOGENIC ARTHRITIS, UNSPECIFIED SNOMED Code(s): 997541114 (4) Abscess in epidural space of lumbar spine Current Visit: Yes Status: Acute Code(s): G06.1 - INTRASPINAL ABSCESS AND GRANULOMA SNOMED Code(s): 859939018 (5) Discitis of lumbar region Current Visit: Yes Status: Acute Code(s): M46.46 - DISCITIS, UNSPECIFIED, LUMBAR REGION SNOMED Code(s): 795570010 Plan: 1patient presented to hospital with weakness fever did have Streptococcus agalactiae bacteremia in this patient who did have a significant swelling to the left knee along with the stiffness with aspiration of the left knee cell count more than 20,000 white cell high clinical suspicious for septic arthritis likely related to streptococci 2- -blood cultures repeat has been negative 3patient did have an MRI of the lumbar spine suspicious for epidural abscess from T12-L2 and possible discitis L1-L2, MRI of the cervical spine was negative for any epidural abscess MRI of the thoracic spine did show extension of the abscess to T11 vertebra, the patient status post drainage of the epidural abscess along with laminectomy and hardware placement on 04/29/2023, OR cultures currently pending 4-patient is afebrile and white count has normalized, patient to continue with cefazolin 2 g every 8 hours, awaiting OR cultures to be finalized and monitor clinical course closely Dictation was produced using [employer] dictation software. please excuse any grammatical, word or spelling errors. Time with Patient: Less than 30
[2023-05-02] MEDS: COLESEVELAM 625 MG TAB PO SCH (16:54)
--- NOTE | 2023-05-02 19:13 | P.PN ---
Progress Note - Text Progress Note Date: 05/02/23 CT of the abdomen and pelvis independently reviewed demonstrated moderate ascites. May benefit from paracentesis. Otherwise, no moderate constipation identified. Recommend bowel regimen lactulose 30 mg daily
[2023-05-02 19:48] LABS: Glucose,Whole Blood 140 mg/dL (70-110)
[2023-05-02] MEDS: LACTULOSE 20 GM/30 ML CUP PO SCH (19:49)
[2023-05-02] MEDS: hydrALAZINE HCL 20 MG/ML 1 ML VIAL IVP PRN (19:59)
--- NOTE | 2023-05-02 21:40 | CT ---
EXAMINATION TYPE: CT abdomen pelvis wo/w con DATE OF EXAM: 05/02/2023 COMPARISON: None INDICATION: abdominal pain, constipation DLP: 3741.4 mGycm, Automated exposure control for dose reduction was used. CONTRAST: 100 ml mL of Isovue 300. Study performed with Oral Contrast TECHNIQUE: Axial images were obtained from above the diaphragm to the pubic rami in the axial plane a t 5 mm thick sections. Reconstructed images are reviewed on the computer in the coronal plane. FINDINGS: Limited CT sections are obtained the lung bases. Small bilateral pleural effusions are present. Some streak atelectasis is likely present adjacent to the pleural effusions.. CT ABDOMEN: Ascites is present. Liver: Normal Spleen: Normal Pancreas: Normal Adrenal glands: Normal Gallbladder: Normal Kidneys: No masses are evident. No hydronephrosis is present. There is a 1.3 cm cyst in the lateral right mid kidney. No renal stones are identified. Aorta: Vascular calcification is within the aorta. Inferior vena cava: Normal. CT PELVIS: Loops of bowel within the abdomen and pelvis are within normal limits. Small bowel loops are nondilat ed. Contrast extends to the distal small bowel loops. The colon appears unremarkable without contrast . Appendix: Not identified. No dilated tubular structure or inflammatory changes are evident. Urinary bladder: Decompressed with Truong catheter. Genitourinary structures: Prostate appears unremarkable. Osseous structures: Pedicle screws and fixation rods extend from T10 through L4. IMPRESSION: 1. Ascites. 2. There may be some mild ileus. No significant fecal debris to suggest constipation. 3. Small bilateral pleural effusions with minimal adjacent compressive atelectasis.
--- NOTE | 2023-05-02 22:06 | P.PN ---
Subjective This is a 67-year-old male patient of Dr. Loli Campbell, patient has medical history of abdominal ascites and liver cirrhosis, chronic alcoholism, diabetes mellitus, hemorrhoids, gastroesophageal reflux disease. Patient follows with dr rocco turcios underwent upper and lower endoscopy in January of 2023 has history of esophageal varices which underwent banding in Jan as well. Has a history of left lower extremity total knee arthroplasty done a year ago, initially presented to [facility] with left lower extremity edema with concern for infected prosthetic of the left knee. He presented to [facility] with fevers progressive weakness and back pain. States fever was as high as 104. He was also anemic hemoglobin 6.5 requiring 2 unit of PRBC. Patient was found to have strep agalactaie bacteremia with features of sepsis over at [facility]. He was treated with IV ceftriaxone 2 grams. Patient also with recent influenza infection and hypoxia at [facility]. He had a venous doppler of the left leg at [facility] negative for acute DVT. He underwent arthrocentesis of the left knee joint effusion showing 20,000 WBCs and suspicious for infected prosthesis was recommended to transfer to [facility] for further evaluation by Dr Bishop. Yesterday before transfer he underwent work up for abdominal ascites which he has undergo paracentesis in the past, he had an abdominal ultrasound showing significant amount of intraabdominal ascites. IR consulted. He is admitted to this hospital with consults placed to [place] and infectious disease. 04/24/2023 Patient evaluated today sitting up in bed. He was seen in consultation by ID who has changed antibiotics to IV cefazolin from ceftriaxone with plans to repeat blood culture. Underwent paracentesis 1.5 L off. Sodium 135, potassium 3.3, BUN 8, creatinine 0.50, magnesium 1.8, CRP 6.2. Orthopedics not recommending any surgical intervention at this time. 04/25/2023 Patient is evaluated today resting in bed. pts is at the bedside and plan of care was discussed thoroughly. Patient remains on IV Cefazolin with repeat blood cultures pending and negative so far. Infectious disease is following this case. He is status post paracentesis. Again orthopedics not recommending any surgical intervention for the right knee septic arthritis. 04/26/2023 Patient is still complaining from left knee swelling, patient states is better, pain controlled no erythema. Orthopedic surgery planning for surgery for infected prosthesis onto stages first one on 04/29 MRI of the lumbar spine is ordered to rule out infection Cardiology team preoperative evaluation is ordered Patient remains on IV cefazolin Repeat blood culture/6 still show no growth ID team on the case 04/27/2023 Patient with minimal back pain and his left knee with no significant pain is still warm and swollen with no redness. Initially orthopedic team are planning for surgical debridement of his left knee. However MRI of the lumbar spine showing epidural abscess of the distal thoracic and irrigated proximal lumbar vertebrae. Orthopedic team still on the case with follow the patient and needs surgery was held and replaced to do lumbar surgery with ( T11-L3 decompression and fusion along with epidural abscess/phlegmon evacuation for 04/29/2023.) Preoperative cardiac evaluation is requested Chest pain or dyspnea No change in urine or bowel habits. No fever. Monitor blood pressure Continue with cefazolin I'm resuming the care of the patient on 05/01/2023 Patient's is status post T10-L4 decompression and fusion of the spine and debridement of epidural abscess on 04/29. Postoperatively patient had to be intubated, he got extubated yesterday, his doing well, minimal back pain and about 5/10 in severity, his left knee pain is 0/10 and looks less swollen, nontender and non-erythematous Denies any other complaints He has Streptococcus agalactiae bacteremia Patient currently covered with cefazolin Patient is a transferred out of the ICU today 05/02/2023 Patients with minimal back pain and no knee pain, no significant other complaint He has poor appetite and constipated and started on lactulose today He has some evidence of fluid overload with some ascites and minimal bilateral pleural effusion seen on CAT scan of the abdomen and pelvis today however there is no other acute process, mild ileus is suspected. He remains on cefazolin for his Streptococcus agalactiae bacteremia LAD Lasix 3 days 40 mg on the top of his 20 mg by mouth twice daily Also worked his fluids to D5 normal saline at 50 mL/h and Versed of 100 mL per hour Objective - Vital Signs Vital signs: Vital Signs Temp 99.0 F 05/02/23 06:48 Pulse 95 05/02/23 06:48 Resp 17 05/02/23 06:48 BP 108/72 05/02/23 06:48 Pulse Ox 92 L 05/02/23 09:21 FiO2 40 04/30/23 13:43 Intake & Output 05/01/23 05/02/23 05/02/23 18:59 06:59 18:59 Intake Total 1890 1000 Output Total 280 70 Balance 1610 930 Intake: IV 90 ns 90 Intake, IV Titration 1200 1000 Amount Lactated Ringers 1,000 ml 1100 1000 @ 100 mls/hr IV .Q10H [facility] Rx#:[id number] ceFAZolin 2 gm In Sodium 100 Chloride 0.9% 50 ml @ 100 mls/hr IVPB Q8HR [facility] Rx# :[id number] Oral 600 Output: Drainage 70 Right Back 70 Urine 280 Other: Voiding Method Indwelling Catheter Indwelling Catheter Indwelling Catheter ABP, PAP, CO, CI - Last Documented Arterial Blood Pressure 146/54 - Exam GENERAL: The patient is alert and oriented x3, not in any acute distress. Well developed, well nourished. HEENT: Pupils are round and equally reacting to light. EOMI. No scleral icterus. No conjunctival pallor. Normocephalic, atraumatic. No pharyngeal erythema. No thyromegaly. CARDIOVASCULAR: S1 and S2 present. No murmurs, rubs, or gallops. PULMONARY: Chest is clear to auscultation, no wheezing , no crackles. ABDOMEN: Soft, nontender, nondistended, normoactive bowel sounds. No palpable organomegaly. -MUSCULOSKELETAL: No joint swelling or deformity. Posterior spinal surgical wound with a dressing in place, rest of exam is deferred to surgery team -EXTREMITIES: No cyanosis, clubbing, or pedal edema. Left knee is swollen, improving NEUROLOGICAL: Gross neurological examination did not reveal any focal deficits. SKIN: No rashes. no petechiae. - Labs CBC & Chem 7: 05/02/23 15:45 05/02/23 15:45 Labs: Abnormal Lab Results - Last 24 Hours (Table) 05/01/23 05/01/23 05/02/23 Range/Units 16:21 21:01 05:47 POC Glucose (mg/dL) 141 H 138 H 114 H (70-110) mg/dL 05/02/23 Range/Units 11:17 POC Glucose (mg/dL) 149 H (70-110) mg/dL Microbiology - Last 24 Hours (Table) 04/27/23 14:12 Anaerobic Culture - Final Knee - Left 04/27/23 14:12 Gram Stain - Preliminary Knee - Left Body Fluid Culture - Preliminary 04/29/23 20:18 Gram Stain - Preliminary Back Tissue Culture - Preliminary 04/30/23 20:18 Gram Stain - Preliminary Back Wound Culture - Preliminary 04/29/23 20:18 Gram Stain - Preliminary Back Wound Culture - Preliminary 04/29/23 20:18 Gram Stain - Preliminary Back Wound Culture - Preliminary 04/29/23 20:18 Gram Stain - Preliminary Back Wound Culture - Preliminary Assessment and Plan Assessment: -Strep Algalactaie bacteremia possible source of infection the left knee continue on the IV rocephin 2g was started on at [facility], ID consultation in place for further recommendations most recent blood culture showing clearing of the bacteremia. Repeat cultures have been taken here and pending. Antibiotics have been changed to IV cefazolin. Surgicel planning for knee procedure on 04/29 with preop cardiac evaluation ( this plan for surgery was held because of his new lumbar abscess) -Back pain, MRI of the lumbar spine: Epidural abscess. Orthopedic team are planning for T11-L3 decompression and fusion along with epidural abscess/phlegmon evacuation for 04/29/2023. -Sepsis source of infection possibly an infected left knee prosthesis s/p arthrocentesis of the left knee at [facility] following -History of esophageal varices with banding in january -Hypokalemia patient will receive oral supplementation and repeat labs in the AM -Hx of cirrhosis, abdominal ascites ultrasound showing significant ascites s/p paracentesis with 1.5 L off and patient has been started on aldactone and lasix BID. -Hx of GERD -Diabetes Mellitus type 2 hgb A1C 6.9 continue on accuchecks achs and sliding scale insulin. -History of left TKA -Hypertension continues on losartan BID and atenolol. -Hemorrhoids -Chronic alcohol use monitor for alcohol withdrawal Hx of gout continue on allopurinol, GI prophylaxis DVT prophylaxis
[2023-05-02] MEDS: FUROSEMIDE 10 MG/ML 4 ML VIAL IV SCH (22:35)
[2023-05-02] MEDS: DEXTROSE 5%-0.9% NACL 1,000 ML IV SCH (22:35)
[2023-05-03] MEDS: HYDROcodone/APAP 10-325MG 1 EACH TAB PO PRN (03:55)
[2023-05-03] MEDS: traMADol 50 MG TAB PO PRN (03:56)
[2023-05-03] MEDS: PANTOPRAZOLE 40 MG TABLET PO SCH (05:44)
[2023-05-03 05:52] LABS: Glucose,Whole Blood 175 mg/dL (70-110)
[2023-05-03] MEDS: INSULIN ASPART (NovoLOG) 100 UNIT/ML VIAL SQ SCH ×4 (06:45→20:51)
--- NOTE | 2023-05-03 08:54 | P.PN ---
Subjective Progress Note Date: 05/03/23 Principal diagnosis: suspected L knee prosthetic infection, tx from [facility] epidural abscess Patient seen and examined this morning. Patient is resting comfortably in bed. He does report that he did sit at the edge of bed over the weekend. He reports he has not been up and about. Patient does present with a firm distended abdomen. Patient reports he is slightly uncomfortable. Patient is incontinent of loose stool, nursing staff informed. Surgical incision to the lumbar spine, edges are well approximated with kaleb intact. Hemovac drain has been removed and new dressing has been applied. No active drainage at this time. Patient does report weakness of bilateral lower extremities. Mild edema noted to bilateral ankles and feet. Calhoun catheter remains intact and patent. Patient denies any numbness or tingling to the lower extremities or perineal numbness or tingling. Continue to encourage patient to work with physical therapy and to be up in chair with all meals. Objective - Vital Signs Vital signs: Vital Signs Temp 98 F 05/03/23 01:59 Pulse 90 05/03/23 01:59 Resp 16 05/03/23 01:59 BP 106/68 05/03/23 01:59 Pulse Ox 93 L 05/03/23 01:59 FiO2 40 04/30/23 13:43 Intake & Output 05/02/23 05/03/23 05/03/23 18:59 06:59 18:59 Intake Total 740 Output Total 350 885 Balance -350 -145 Intake: Intake, IV Titration 500 Amount Dextrose 5%-0.9% NaCl 1, 500 000 ml @ 50 mls/hr IV . Q20H [facility] Rx#:[id number] Oral 240 Output: Drainage 10 Right Back 10 Urine 350 875 Uretheral (Calhoun) 500 Other: Voiding Method Indwelling Catheter Indwelling Catheter ABP, PAP, CO, CI - Last Documented Arterial Blood Pressure 146/54 - Exam Physical Examination General: The patient is awake and alert, in no acute distress Skin: Skin is warm and dry with no obvious rashes or lesions. Surgical incision to the lumbar spine, edges are well approximated with kaleb intact. New dressing has been applied. Eye: Pupils are equal, round and reactive to light, extra-ocular movements are intact; there is normal conjunctiva bilaterally. Neck: The neck is supple, there is no tenderness and ROM intact. Cardiovascular: There is a regular rate and rhythm. No murmur, rub or gallop is appreciated. Mild edema to the bilateral ankles and feet Respiratory: Lungs are clear to auscultation, respirations are non-labored, breath sounds are equal. Gastrointestinal: Firm, distended, mild tenderness to palpation Back: There is no tenderness to palpation in the midline, paralumbar, parathoracic or buttocks region. There is no obvious deformity . Musculoskeletal: ROM limited secondary to pain and stiffness from surgical procedure. Muscle strength in all major muscle groups of bilateral upper extremities 4/5, left lower extremity 4-/5, right lower extremity 3+/5 Neurological: CN 2-12 intact. There are no obvious motor or sensory deficits. Movement and coordination equal and intact. Sensory exam to light touch intact C5-T1 and intact from L2-S1. Reflexes 2/4 in bilateral upper and lower extremities. Negative Hoffmans, babinski, and clonus signs. Psychiatric: Cooperative, appropriate mood & affect, normal judgment. - Labs CBC & Chem 7: 05/02/23 15:45 05/02/23 15:45 Labs: Abnormal Lab Results - Last 24 Hours (Table) 05/02/23 05/02/23 05/02/23 Range/Units 11:17 15:45 15:45 RBC 3.06 L (4.30-5.90) m/uL Hgb 8.7 L (13.0-17.5) gm/dL Hct 26.9 L (39.0-53.0) % RDW 19.0 H (11.5-15.5) % Sodium 136 L (137-145) mmol/L Chloride 108 H (98-107) mmol/L Carbon Dioxide 21 L (22-30) mmol/L BUN 22 H (9-20) mg/dL Glucose 109 H (74-99) mg/dL POC Glucose (mg/dL) 149 H (70-110) mg/dL Calcium 8.2 L (8.4-10.2) mg/dL Alkaline Phosphatase 152 H (38-126) U/L Total Protein 5.6 L (6.3-8.2) g/dL Albumin 2.3 L (3.5-5.0) g/dL 05/02/23 05/03/23 Range/Units 19:45 05:51 RBC (4.30-5.90) m/uL Hgb (13.0-17.5) gm/dL Hct (39.0-53.0) % RDW (11.5-15.5) % Sodium (137-145) mmol/L Chloride (98-107) mmol/L Carbon Dioxide (22-30) mmol/L BUN (9-20) mg/dL Glucose (74-99) mg/dL POC Glucose (mg/dL) 140 H 175 H (70-110) mg/dL Calcium (8.4-10.2) mg/dL Alkaline Phosphatase (38-126) U/L Total Protein (6.3-8.2) g/dL Albumin (3.5-5.0) g/dL Microbiology - Last 24 Hours (Table) 04/29/23 20:18 Gram Stain - Preliminary Back Tissue Culture - Preliminary 04/29/23 20:18 Anaerobic Culture - Preliminary Back 04/29/23 20:18 Anaerobic Culture - Preliminary Back 04/29/23 20:18 Anaerobic Culture - Preliminary Back 04/29/23 20:18 Anaerobic Culture - Preliminary Back 04/30/23 20:18 Gram Stain - Final Back Wound Culture - Final 04/29/23 20:18 Gram Stain - Final Back Wound Culture - Final 04/29/23 20:18 Gram Stain - Final Back Wound Culture - Final 04/29/23 20:18 Gram Stain - Final Back Wound Culture - Final Assessment and Plan Assessment: Postop day 4: T11-L3 decompression and fusion with evacuation of epidural abscess Left knee effusion Possible left knee periprosthetic infection Bacteremia Low back pain Epidural abscess thoracic/lumbar spine Cirrhosis Multiple medical comorbidities Plan: -Appreciate events solutions consultant and team management. -Activity: Ambulate QID, OOB all meals, up and about, limit lifting bending twisting to less than 5 lbs. Use walker or cane if needed for stability. -Daily PT/OT, increase ambulation strength and balance. -Brace when up and about, not needed in bed or chair -Pain control: Adequate at this time -Meds: reviewed -GI ppx: senna, Miralax -DC calhoun when up and about, bedside commode if needed -DVT PPX: Heparin -Hygiene: Shower today. Maintain dressing clean and dry. Meticulous cleaning after BMs away from the incision site -Encourage IS 10x/hr -Dispo: Clinically pending *I reviewed and discussed this case with my attending Dr. Narayanan, whom has reviewed this chart and films and is in agreement with assessment and plan of care as outlined above. I have personally seen and examined the patient, performed the documentation and the assessment and plan as written. Number of minutes spent on the visit: 20m.
[2023-05-03] MEDS: HEPARIN SODIUM,PORCINE 5,000 UNIT/ML 1 ML VIAL SQ SCH ×3 (09:07→21:40)
[2023-05-03] MEDS: LACTULOSE 20 GM/30 ML CUP PO SCH ×2 (09:07→09:29)
[2023-05-03] MEDS: ASCORBIC ACID 500 MG TAB PO SCH (09:08)
[2023-05-03] MEDS: SENNOSIDES-DOCUSATE SODIUM 1 EACH TAB PO SCH ×2 (09:08→09:29)
[2023-05-03] MEDS: CHOLECALCIFEROL 25 MCG (1000 IU) TABLET PO SCH (09:08)
[2023-05-03] MEDS: SPIRONOLACTONE 25 MG TAB PO SCH ×2 (09:08→21:40)
[2023-05-03] MEDS: MULTIVITAMINS, THERA 1 EACH TAB PO SCH (09:08)
[2023-05-03] MEDS: FUROSEMIDE 10 MG/ML 4 ML VIAL IV SCH ×2 (09:08→21:40)
[2023-05-03] MEDS: atenoloL 50 MG TAB PO SCH (09:08)
[2023-05-03] MEDS: ASPIRIN 81 MG PO SCH (09:08)
[2023-05-03] MEDS: LOSARTAN 50 MG TAB PO SCH ×2 (09:08→21:40)
[2023-05-03] MEDS: allopurinoL 300 MG TAB PO SCH (09:08)
[2023-05-03] MEDS: FUROSEMIDE 20 MG TAB PO SCH (09:28)
--- NOTE | 2023-05-03 10:25 | US ---
EXAMINATION TYPE: US abdomen limited DATE OF EXAM: 05/03/2023 COMPARISON: NONE CLINICAL INDICATION: Male, 67 years old with history of ascites; FINDINGS: Scanning of both sides of the abdomen for assessment of ascites fluid. Still Operator Batch Or Continuous notes: Exam done p ortable. Small amount of ascites seen IMPRESSION: Mild abdominal ascites. Nodular appearance to the liver suggesting underlying cirrhosis.
--- NOTE | 2023-05-03 11:43 | P.PN ---
Subjective Progress Note Date: 05/03/23 05/03/2023, patient is postop day #4 following T11-L3 decompression of an epidural abscess. The patient was on a mechanical ventilator and the patient was extubated on 04/30/2023 and the patient is currently on room air oxygen. The patient also has multiple other comorbidities. The patient had streptococcal septicemia related to an infected septic left knee. The patient has liver cirrhosis, diabetes mellitus, hypertension hyperlipidemia and gout and previous history of chronic alcohol use. Currently hemodynamically stable. The patient is currently on room air oxygen and not having any major respiratory difficulties. The blood cultures. The patient is currently on IV cefazolin. The left knee cultures have revealed no growth. Overall fluid was also negative. Blood culture was also negative. During the course of her illness, the patient received a total of 2 units of packed RBC and hemoglobin is stable for now. The patient continues to have abdominal distention secondary to ascites and liver cirrhosis. A consultation was placed for interventional radiology to undergo a paracentesis. He continues to have issues related to pain. Unable to ambulate. Physical therapy has been able to put him on a chair for brief period of time. Using incentive spirometer. Objective - Vital Signs Vital signs: Vital Signs Temp 98.2 F 05/03/23 07:19 Pulse 91 05/03/23 07:19 Resp 18 05/03/23 07:19 BP 137/75 05/03/23 07:19 Pulse Ox 96 05/03/23 07:19 FiO2 40 04/30/23 13:43 Intake & Output 05/02/23 05/03/23 05/03/23 18:59 06:59 18:59 Intake Total 740 Output Total 350 885 Balance -350 -145 Intake: Intake, IV Titration 500 Amount Dextrose 5%-0.9% NaCl 1, 500 000 ml @ 50 mls/hr IV . Q20H [facility] Rx#:[id number] Oral 240 Output: Drainage 10 Right Back 10 Urine 350 875 Uretheral ([place]) 500 Other: Voiding Method Indwelling Catheter Indwelling Catheter Indwelling Catheter # Bowel Movements 1 ABP, PAP, CO, CI - Last Documented Arterial Blood Pressure 146/54 - Exam GENERAL EXAM: Alert, pleasant 67-year-old male, on room air, fairly comfortable in no apparent distress. HEAD: Normocephalic. EYES: Normal reaction of pupils, equal size. NOSE: Clear with pink turbinates. THROAT: No erythema or exudates. NECK: No masses, no JVD. CHEST: No chest wall deformity. LUNGS: Equal air entry with no crackles, wheeze, rhonchi or dullness. CVS: S1 and S2 normal with no audible murmur, regular rhythm. ABDOMEN: Distended No hepatosplenomegaly, normal bowel sounds, no guarding or rigidity. SPINE: Surgical dressing dry and intact. Drain remains in place. SKIN: No rashes CENTRAL NERVOUS SYSTEM: No focal deficits, tone is normal in all 4 extremities. EXTREMITIES: There is 1-2+ peripheral edema. No clubbing, no cyanosis. Peripheral pulses are intact. - Labs CBC & Chem 7: 05/02/23 15:45 05/02/23 15:45 Labs: Abnormal Lab Results - Last 24 Hours (Table) 05/02/23 05/02/23 05/02/23 Range/Units 15:45 15:45 19:45 RBC 3.06 L (4.30-5.90) m/uL Hgb 8.7 L (13.0-17.5) gm/dL Hct 26.9 L (39.0-53.0) % RDW 19.0 H (11.5-15.5) % Sodium 136 L (137-145) mmol/L Chloride 108 H (98-107) mmol/L Carbon Dioxide 21 L (22-30) mmol/L BUN 22 H (9-20) mg/dL Glucose 109 H (74-99) mg/dL POC Glucose (mg/dL) 140 H (70-110) mg/dL Calcium 8.2 L (8.4-10.2) mg/dL Alkaline Phosphatase 152 H (38-126) U/L Total Protein 5.6 L (6.3-8.2) g/dL Albumin 2.3 L (3.5-5.0) g/dL 05/03/23 Range/Units 05:51 RBC (4.30-5.90) m/uL Hgb (13.0-17.5) gm/dL Hct (39.0-53.0) % RDW (11.5-15.5) % Sodium (137-145) mmol/L Chloride (98-107) mmol/L Carbon Dioxide (22-30) mmol/L BUN (9-20) mg/dL Glucose (74-99) mg/dL POC Glucose (mg/dL) 175 H (70-110) mg/dL Calcium (8.4-10.2) mg/dL Alkaline Phosphatase (38-126) U/L Total Protein (6.3-8.2) g/dL Albumin (3.5-5.0) g/dL Microbiology - Last 24 Hours (Table) 04/29/23 20:18 Anaerobic Culture - Preliminary Back 04/29/23 20:18 Gram Stain - Preliminary Back Tissue Culture - Preliminary 04/29/23 20:18 Anaerobic Culture - Preliminary Back 04/29/23 20:18 Anaerobic Culture - Preliminary Back 04/29/23 20:18 Anaerobic Culture - Preliminary Back 04/29/23 20:18 Anaerobic Culture - Preliminary Back 04/30/23 20:18 Gram Stain - Final Back Wound Culture - Final 04/29/23 20:18 Gram Stain - Final Back Wound Culture - Final 04/29/23 20:18 Gram Stain - Final Back Wound Culture - Final 04/29/23 20:18 Gram Stain - Final Back Wound Culture - Final Assessment and Plan Plan: Assessment Postop day #4 following T11-L3 decompression of the epidural abscess. Patient is currently on IV cefazolin. Sepsis source thought to be infection of the left knee prosthesis status post arthrocentesis of the left knee Septic left knee infection Liver cirrhosis with ascites and history of esophageal varices Abdominal distention/ascites secondary to liver cirrhosis Diabetes mellitus type 2 Previous history of left total knee arthroplasty Hypertension Hyperlipidemia Gout Alcoholism Plan Pulmonary status is stable. Continue IV cefazolin Continue IV Lasix for milligrams every 12 hours and stop the oral diuretics for now Interventional radiology for paracentesis Encourage use of incentive spirometer Patient is currently on room air oxygen Overall rest or status is stable.
[2023-05-03 11:52] LABS: Glucose,Whole Blood 141 mg/dL (70-110)
--- NOTE | 2023-05-03 15:03 | P.CONS ---
History of Present Illness - Reason for Consult Consult date: 05/03/23 Ascites Requesting physician: Rosario Tipton - Chief Complaint Septic knee - History of Present Illness This is a 67-year-old white male who was transferred from [facility] for her concern for possible septic knee days ago. He has a history of alcoholic cirrhosis of the liver and has followed with gastroenterology last seen in November of this year. The patient is a very poor historian and most of this history is obtained from chart. He has a history of ascites and paracentesis and this maintained on Lasix 20 mg twice a day and Aldactone 50 mg twice a day. Has a history of GI bleeding and esophageal varices. Last EGD and colonoscopy in January 2023. Upper endoscopy revealed large mid and distal esophageal varices with red without case status post variceal ligation and mild to moderate portal hypertensive gastropathy. Colonoscopy revealed 5 mm ascending colon polyp and transverse colon polyp status post polypectomy and grade 2 internal hemorrhoids. On as part of his workup at [facility] he had an ultrasound of the abdomen for abdominal distention and was noted to have ascites. He underwent a paracentesis on 04/26/2023 with 1.36 L removed. During this stay he underwent a lumbar spine MRI that was concerning for epidura l abscess. He underwent T11 to L3 decompression and fusion with evacuation of epidural abscess. Apparently during this hospital stay he also had constipation and complaints of abdominal pain. Gen. surgery was consulted by the medical team for constipation. He recently had undergone colonoscopy again without any acute findings he was started on lactulose 30 g daily. He had 3 bowel movements reported today. He had an abdominal ultrasound that shows mild abdominal ascites. Nodular appearing liver suggesting underlying cirrhosis. Past Medical History Past Medical History: Diabetes Mellitus, GERD/Reflux, Hyperlipidemia, Hypertension, Osteoarthritis (OA) Additional Past Medical History / Comment(s): GOUT. LOWER BACK PAIN. HX OF COLON POLYP. ARTHRITIS KNEES. HX ESOPHAGEAL VARICES WITH BANDING. History of Any Multi-Drug Resistant Organisms: None Reported Past Surgical History: Cholecystectomy, Joint Replacement, Orthopedic Surgery Additional Past Surgical History / Comment(s): Surgery for deviated septum, bilateral cataracts removed, right knee arthroscopy, wisdom teeth removed, EGD with ESOPHAGEAL BANDS at [facility], COLONOSCOPIES, left knee replacement. Past Anesthesia/Blood Transfusion Reactions: No Reported Reaction Additional Past Anesthesia/Blood Transfusion Reaction / Comm: Woke up once when IV infiltrated during EGD. Past Psychological History: No Psychological Hx Reported Smoking Status: Former smoker Past Alcohol Use History: Occasional Additional Past Alcohol Use History / Comment(s): STARTED SMOKING AT AGE 18, QUIT AT AGE 22, SMOKED 1/2 PPD. Past Drug Use History: None Reported - Past Family History Mother Family Medical History: No Reported History Medications and Allergies Home Medications Medication Instructions Recorded Confirmed Type Colesevelam [Welchol] 1,875 tab PO AC-SUPPER 09/18/14 04/23/23 History allopurinoL [Zyloprim] 300 mg PO DAILY 09/18/14 04/23/23 History Multivitamin/Iron/Folic Acid 1 tab PO DAILY 11/19/17 04/22/23 History [Centrum Adults Tablet] Omeprazole 20 mg PO BID 03/07/21 04/22/23 History Losartan Potassium 50 mg PO BID 10/10/21 04/22/23 History atenoloL [Tenormin] 50 mg PO DAILY 10/10/21 04/22/23 History Ascorbic Acid [Vitamin C] 1,000 mg PO DAILY 01/28/23 04/22/23 History Aspirin [Adult Low Dose Aspirin EC] 81 mg PO DAILY 01/28/23 04/22/23 History Cholecalciferol [Vitamin D3 (25 50 mcg PO DAILY 04/22/23 04/22/23 History Mcg = 1000 Iu)] Allergies Allergy/AdvReac Type Severity Reaction Status Date / Time Sulfa (Sulfonamide Allergy Rash/Hives Verified 04/29/23 14:18 Antibiotics) Physical Exam Vitals: Vital Signs Temp Pulse Pulse Resp BP BP Pulse Ox 05/03/23 07:19 98.2 F 91 18 137/75 96 05/03/23 01:59 98 F 90 16 106/68 93 L 05/02/23 17:48 98.4 F 97 18 187/77 95 Intake and Output 05/02/23 05/03/23 05/03/23 22:59 06:59 14:59 Intake Total 740 Output Total 425 083 6287 Balance -500 355 -1300 Intake: Intake, IV Titration 500 Amount Dextrose 5%-0.9% NaCl 1, 500 000 ml @ 50 mls/hr IV . Q20H [facility] Rx#:[id number] Oral 240 Output: Drainage 10 Right Back 10 Urine 223 320 5697 Uretheral (Truong) 500 Other: Voiding Method Indwelling Catheter Indwelling Catheter # Bowel Movements 2 General appearance: The patient is alert, oriented, appears in no acute distress. HET: Head is normocephalic and atraumatic. Conjunctiva pink. Sclera anicteric. Neck: Supple without lymphadenopathy. Trachea midline. Heart: Regular. Lungs: Equal expansion, normal respiratory effort. Abdomen: Soft, nontender, distended, tympanic. No guarding or rigidity. Skin: No rashes. No jaundice. Extremities: Normal skin color and turgor. No pedal edema. Neurological: No focal deficits. Alert and oriented x3. Results CBC & Chem 7: 05/02/23 15:45 05/02/23 15:45 Labs: Abnormal Lab Results - Last 24 Hours (Table) 05/02/23 05/02/23 05/02/23 Range/Units 15:45 15:45 19:45 RBC 3.06 L (4.30-5.90) m/uL Hgb 8.7 L (13.0-17.5) gm/dL Hct 26.9 L (39.0-53.0) % RDW 19.0 H (11.5-15.5) % Sodium 136 L (137-145) mmol/L Chloride 108 H (98-107) mmol/L Carbon Dioxide 21 L (22-30) mmol/L BUN 22 H (9-20) mg/dL Glucose 109 H (74-99) mg/dL POC Glucose (mg/dL) 140 H (70-110) mg/dL Calcium 8.2 L (8.4-10.2) mg/dL Alkaline Phosphatase 152 H (38-126) U/L Total Protein 5.6 L (6.3-8.2) g/dL Albumin 2.3 L (3.5-5.0) g/dL 05/03/23 05/03/23 Range/Units 05:51 11:51 RBC (4.30-5.90) m/uL Hgb (13.0-17.5) gm/dL Hct (39.0-53.0) % RDW (11.5-15.5) % Sodium (137-145) mmol/L Chloride (98-107) mmol/L Carbon Dioxide (22-30) mmol/L BUN (9-20) mg/dL Glucose (74-99) mg/dL POC Glucose (mg/dL) 175 H 141 H (70-110) mg/dL Calcium (8.4-10.2) mg/dL Alkaline Phosphatase (38-126) U/L Total Protein (6.3-8.2) g/dL Albumin (3.5-5.0) g/dL Microbiology - Last 24 Hours (Table) 04/29/23 20:18 Anaerobic Culture - Preliminary Back 04/29/23 20:18 Gram Stain - Preliminary Back Tissue Culture - Preliminary 04/29/23 20:18 Anaerobic Culture - Preliminary Back 04/29/23 20:18 Anaerobic Culture - Preliminary Back 04/29/23 20:18 Anaerobic Culture - Preliminary Back 04/29/23 20:18 Anaerobic Culture - Preliminary Back 04/30/23 20:18 Gram Stain - Final Back Wound Culture - Final 04/29/23 20:18 Gram Stain - Final Back Wound Culture - Final 04/29/23 20:18 Gram Stain - Final Back Wound Culture - Final 04/29/23 20:18 Gram Stain - Final Back Wound Culture - Final Assessment and Plan (1) Alcoholic cirrhosis of liver Narrative/Plan: 67-year-old with history of ongoing alcohol abuse follows with gastroenterology for colic cirrhosis of liver with history of esophageal varices, ascites who is admitted to the hospital for bacteremia and found to have a epidural abscess. During a the admission he was noted to have distended abdomen and underwent paracentesis. Home medications had included Lasix 20 mg twice a day and Aldactone 50 mg twice a day according to notes from last GI visit in November 2022. The patient is a poor historian at this time. Even though he is alert and oriented 3 he was unable to give much history initially. Will obtain ammonia level. LFTs are all within normal limits with elevation of alkaline phosphatase but again patient recently had a tone and concern for septic knee as well as epidural abscess. Abdomen tympanic without any significant fluid at this time. Continue with Lasix as ordered, will increase Aldactone to 50 mg twice a day. Current Visit: Yes Status: Acute Code(s): K70.30 - ALCOHOLIC CIRRHOSIS OF LIVER WITHOUT ASCITES SNOMED Code(s): 292493165 (2) Ascites Current Visit: Yes Status: Acute Code(s): R18.8 - OTHER ASCITES SNOMED Code(s): 031506749 Plan: 1. Continue symptomatic and supportive care 2. Please get ammonia level 3. Continue lactulose as ordered for now 4. Increase Aldactone to 50 mg twice a day 5. Continue alcohol abstinence 6. No need for paracentesis, patient with small amount of fluid noted on ultrasound and tympanic abdomen 7. No further workup by gastroenterology. Patient can follow-up in the office upon discharge. Thank you for this consultation, we will continue to follow. Dr. Nicolle Bangura I agree with the dictator's note, documented as a scribe by Chasidy Jeffries.
[2023-05-03] MEDS: MAGNESIUM HYDROXIDE 2,400 MG/30 ML CUP PO SCH (15:17)
--- NOTE | 2023-05-03 15:51 | P.PN ---
Subjective Progress Note Date: 05/03/23 CHIEF COMPLAINT: Abdominal distention HISTORY OF PRESENT ILLNESS: Patient denies any abdominal pain. He is having loose bowel movements per nursing staff. Computed tomography scan abdomen had shown ascites. There may be some mild ileus. No significant fecal debris to suggest constipation. Abdominal ultrasound completed only showing a small amount of ascites. Not enough for paracentesis. Patient hospitalized for a decompression of epidural abscess from T11 to L3. And infection in the left knee prosthesis. Currently on antibiotics. PHYSICAL EXAM: VITAL SIGNS: Reviewed. GENERAL: Well-developed in no acute distress. ABDOMEN: Soft. Distended. Nontender.. NEUROLOGIC: Alert and oriented. Cranial nerves II through XII grossly intact. ASSESSMENT: 1. Abdominal distention 2. Ileus 3. History of liver cirrhosis with ascites 4. Septic left knee infection 5. T 11 through L3 decompression of the epidural abscess PLAN: -No surgical intervention planned -Discussed with interventional radiology only a small small fluid on ultrasound. No paracentesis required. -Continue laxatives and stool softeners -Continue regular diet -GI service has adjusted on diuretics. Physician Lock Tender Chief Operator note has been reviewed by physician. Signing provider agrees with the documented findings, assessment, and plan of care. Objective - Vital Signs Vital signs: Vital Signs Temp 98.2 F 05/03/23 07:19 Pulse 91 05/03/23 07:19 Resp 18 05/03/23 07:19 BP 137/75 05/03/23 07:19 Pulse Ox 96 05/03/23 07:19 FiO2 40 04/30/23 13:43 Intake & Output 05/02/23 05/03/23 05/03/23 18:59 06:59 18:59 Intake Total 740 Output Total 859 806 7096 Balance -350 -145 -1300 Intake: Intake, IV Titration 500 Amount Dextrose 5%-0.9% NaCl 1, 500 000 ml @ 50 mls/hr IV . Q20H [facility] Rx#:[id number] Oral 240 Output: Drainage 10 Right Back 10 Urine 582 302 3130 Uretheral (Truong) 500 Other: Voiding Method Indwelling Catheter Indwelling Catheter Indwelling Catheter # Bowel Movements 2 ABP, PAP, CO, CI - Last Documented Arterial Blood Pressure 146/54 - Labs CBC & Chem 7: 05/02/23 15:45 05/02/23 15:45 Labs: Abnormal Lab Results - Last 24 Hours (Table) 05/02/23 05/02/23 05/02/23 Range/Units 15:45 15:45 19:45 RBC 3.06 L (4.30-5.90) m/uL Hgb 8.7 L (13.0-17.5) gm/dL Hct 26.9 L (39.0-53.0) % RDW 19.0 H (11.5-15.5) % Sodium 136 L (137-145) mmol/L Chloride 108 H (98-107) mmol/L Carbon Dioxide 21 L (22-30) mmol/L BUN 22 H (9-20) mg/dL Glucose 109 H (74-99) mg/dL POC Glucose (mg/dL) 140 H (70-110) mg/dL Calcium 8.2 L (8.4-10.2) mg/dL Alkaline Phosphatase 152 H (38-126) U/L Total Protein 5.6 L (6.3-8.2) g/dL Albumin 2.3 L (3.5-5.0) g/dL 05/03/23 05/03/23 Range/Units 05:51 11:51 RBC (4.30-5.90) m/uL Hgb (13.0-17.5) gm/dL Hct (39.0-53.0) % RDW (11.5-15.5) % Sodium (137-145) mmol/L Chloride (98-107) mmol/L Carbon Dioxide (22-30) mmol/L BUN (9-20) mg/dL Glucose (74-99) mg/dL POC Glucose (mg/dL) 175 H 141 H (70-110) mg/dL Calcium (8.4-10.2) mg/dL Alkaline Phosphatase (38-126) U/L Total Protein (6.3-8.2) g/dL Albumin (3.5-5.0) g/dL Microbiology - Last 24 Hours (Table) 04/29/23 20:18 Anaerobic Culture - Preliminary Back 04/29/23 20:18 Gram Stain - Preliminary Back Tissue Culture - Preliminary 04/29/23 20:18 Anaerobic Culture - Preliminary Back 04/29/23 20:18 Anaerobic Culture - Preliminary Back 04/29/23 20:18 Anaerobic Culture - Preliminary Back 04/29/23 20:18 Anaerobic Culture - Preliminary Back 04/30/23 20:18 Gram Stain - Final Back Wound Culture - Final 04/29/23 20:18 Gram Stain - Final Back Wound Culture - Final 04/29/23 20:18 Gram Stain - Final Back Wound Culture - Final 04/29/23 20:18 Gram Stain - Final Back Wound Culture - Final
[2023-05-03 16:54] LABS: Glucose,Whole Blood 179 mg/dL (70-110)
[2023-05-03] MEDS: COLESEVELAM 625 MG TAB PO SCH (17:29)
[2023-05-03] MEDS: DEXTROSE 5%-0.9% NACL 1,000 ML IV SCH (17:29)
[2023-05-03 20:09] LABS: Glucose,Whole Blood 137 mg/dL (70-110)
[2023-05-04] MEDS: ACETAMINOPHEN TAB 325 MG TAB PO PRN ×2 (00:46→06:32)
[2023-05-04] MEDS: INSULIN ASPART (NovoLOG) 100 UNIT/ML VIAL SQ SCH ×4 (06:25→20:51)
[2023-05-04 06:29] LABS: Glucose,Whole Blood 142 mg/dL (70-110)
[2023-05-04] MEDS: guaiFENesin SYRUP 100MG/5ML 200 MG/10 ML CUP PO PRN ×2 (06:32→20:10)
[2023-05-04] MEDS: PANTOPRAZOLE 40 MG TABLET PO SCH (06:32)
--- NOTE | 2023-05-04 07:40 | P.PN ---
Subjective Progress Note Date: 05/04/23 Principal diagnosis: suspected L knee prosthetic infection, tx from [facility] epidural abscess Patient seen and examined this morning. Patient is resting comfortably in bed. He reports that his pain is managed at this time. Patient states he was up with therapy yesterday and sat in chair, tolerating activity well. His abdomen remains firm and distended, lactulose is being provided. Surgical dressing to lumbar spine remains CDI. No acute concerns from orthopedic standpoint. Continue to encourage to work with PT and to be up in chair for all meals and utilize incentive spirometer. Objective - Vital Signs Vital signs: Vital Signs Temp 100.0 F H 05/04/23 00:09 Pulse 66 05/04/23 00:09 Resp 18 05/04/23 00:09 BP 152/83 05/04/23 00:09 Pulse Ox 92 L 05/04/23 00:09 FiO2 40 04/30/23 13:43 Intake & Output 05/03/23 05/04/23 05/04/23 18:59 06:59 18:59 Output Total 1750 1050 Balance -1750 -1050 Output: Urine 1750 1050 Other: Voiding Method Indwelling Catheter Indwelling Catheter # Bowel Movements 1 ABP, PAP, CO, CI - Last Documented Arterial Blood Pressure 146/54 - Exam Physical Examination General: The patient is awake and alert, in no acute distress Skin: Skin is warm and dry with no obvious rashes or lesions. Surgical dressing to the lumbar spine, dressing is CDI. Eye: Pupils are equal, round and reactive to light, extra-ocular movements are intact; there is normal conjunctiva bilaterally. Neck: The neck is supple, there is no tenderness and ROM intact. Cardiovascular: There is a regular rate and rhythm. No murmur, rub or gallop is appreciated. Mild edema to the bilateral ankles and feet Respiratory: Lungs are clear to auscultation, respirations are non-labored, breath sounds are equal. Gastrointestinal: Firm, distended, mild tenderness to palpation Back: There is no tenderness to palpation in the midline, paralumbar, parathoracic or buttocks region. There is no obvious deformity . Musculoskeletal: ROM limited secondary to pain and stiffness from surgical proce dure. Muscle strength in all major muscle groups of bilateral upper extremities 4/5, left lower extremity 4-/5, right lower extremity 3+/5 Neurological: CN 2-12 intact. There are no obvious motor or sensory deficits. Movement and coordination equal and intact. Sensory exam to light touch intact C5-T1 and intact from L2-S1. Reflexes 2/4 in bilateral upper and lower extremities. Negative Hoffmans, babinski, and clonus signs. Psychiatric: Cooperative, appropriate mood & affect, normal judgment. - Labs CBC & Chem 7: 05/02/23 15:45 05/02/23 15:45 Labs: Abnormal Lab Results - Last 24 Hours (Table) 05/03/23 05/03/23 05/03/23 Range/Units 11:51 16:52 20:07 POC Glucose (mg/dL) 141 H 179 H 137 H (70-110) mg/dL 05/04/23 Range/Units 06:23 POC Glucose (mg/dL) 142 H (70-110) mg/dL Microbiology - Last 24 Hours (Table) 04/23/23 16:36 Fungal Culture - Preliminary Ascites Fluid 04/23/23 16:36 Acid Fast Bacilli Smear - Preliminary Ascites Fluid Acid Fast Bacilli Culture - Preliminary 04/29/23 20:18 Anaerobic Culture - Preliminary Back 04/29/23 20:18 Gram Stain - Preliminary Back Tissue Culture - Preliminary Assessment and Plan Assessment: Postop day 5: T11-L3 decompression and fusion with evacuation of epidural abscess Left knee effusion Possible left knee periprosthetic infection Bacteremia Low back pain Epidural abscess thoracic/lumbar spine Cirrhosis Multiple medical comorbidities Plan: -Appreciate technology consultant and team management. -Activity: Ambulate QID, OOB all meals, up and about, limit lifting bending twisting to less than 5 lbs. Use walker or cane if needed for stability. -Daily PT/OT, increase ambulation strength and balance. -Brace when up and about, not needed in bed or chair -Pain control: Adequate at this time -Meds: reviewed -GI ppx: senna, Miralax -DC [place] when up and about, bedside commode if needed -DVT PPX: Heparin -Hygiene: Shower today. Maintain dressing clean and dry. Meticulous cleaning after BMs away from the incision site -Encourage IS 10x/hr -Dispo: Clinically pending, patient is cleared from Orthopedic standpoint for discharge when medically stable. *I reviewed and discussed this case with my attending Dr. Narayanan, whom has reviewed this chart and films and is in agreement with assessment and plan of care as outlined above. I have personally seen and examined the patient, performed the documentation and the assessment and plan as written. Number of minutes spent on the visit: 20m.
[2023-05-04] MEDS: LACTULOSE 20 GM/30 ML CUP PO SCH (08:05)
[2023-05-04] MEDS: HEPARIN SODIUM,PORCINE 5,000 UNIT/ML 1 ML VIAL SQ SCH ×2 (08:05→20:11)
[2023-05-04] MEDS: ASPIRIN 81 MG PO SCH (08:05)
[2023-05-04] MEDS: MULTIVITAMINS, THERA 1 EACH TAB PO SCH (08:06)
[2023-05-04] MEDS: CHOLECALCIFEROL 25 MCG (1000 IU) TABLET PO SCH (08:06)
[2023-05-04] MEDS: LOSARTAN 50 MG TAB PO SCH ×2 (08:06→20:10)
[2023-05-04] MEDS: atenoloL 50 MG TAB PO SCH (08:06)
[2023-05-04] MEDS: ASCORBIC ACID 500 MG TAB PO SCH (08:06)
[2023-05-04] MEDS: SENNOSIDES-DOCUSATE SODIUM 1 EACH TAB PO SCH (08:06)
[2023-05-04] MEDS: SPIRONOLACTONE 25 MG TAB PO SCH ×2 (08:06→20:10)
[2023-05-04] MEDS: FUROSEMIDE 10 MG/ML 4 ML VIAL IV SCH ×2 (08:42→20:10)
--- NOTE | 2023-05-04 09:44 | P.PN ---
Subjective This is a 67-year-old male patient of Dr. Loli Campbell, patient has medical history of abdominal ascites and liver cirrhosis, chronic alcoholism, diabetes mellitus, hemorrhoids, gastroesophageal reflux disease. Patient follows with dr rocco turcios underwent upper and lower endoscopy in January of 2023 has history of esophageal varices which underwent banding in Jan as well. Has a history of left lower extremity total knee arthroplasty done a year ago, initially presented to [facility] with left lower extremity edema with concern for infected prosthetic of the left knee. He presented to [facility] with fevers progressive weakness and back pain. States fever was as high as 104. He was also anemic hemoglobin 6.5 requiring 2 unit of PRBC. Patient was found to have strep agalactaie bacteremia with features of sepsis over at [facility]. He was treated with IV ceftriaxone 2 grams. Patient also with recent influenza infection and hypoxia at [facility]. He had a venous doppler of the left leg at [facility] negative for acute DVT. He underwent arthrocentesis of the left knee joint effusion showing 20,000 WBCs and suspicious for infected prosthesis was recommended to transfer to [facility] for further evaluation by Dr Bishop. Yesterday before transfer he underwent work up for abdominal ascites which he has undergo paracentesis in the past, he had an abdominal ultrasound showing significant amount of intraabdominal ascites. IR consulted. He is admitted to this hospital with consults placed to [place] and infectious disease. 04/24/2023 Patient evaluated today sitting up in bed. He was seen in consultation by ID who has changed antibiotics to IV cefazolin from ceftriaxone with plans to repeat blood culture. Underwent paracentesis 1.5 L off. Sodium 135, potassium 3.3, BUN 8, creatinine 0.50, magnesium 1.8, CRP 6.2. Orthopedics not recommending any surgical intervention at this time. 04/25/2023 Patient is evaluated today resting in bed. pts is at the bedside and plan of care was discussed thoroughly. Patient remains on IV Cefazolin with repeat blood cultures pending and negative so far. Infectious disease is following this case. He is status post paracentesis. Again orthopedics not recommending any surgical intervention for the right knee septic arthritis. 04/26/2023 Patient is still complaining from left knee swelling, patient states is better, pain controlled no erythema. Orthopedic surgery planning for surgery for infected prosthesis onto stages first one on 04/29 MRI of the lumbar spine is ordered to rule out infection Cardiology team preoperative evaluation is ordered Patient remains on IV cefazolin Repeat blood culture/6 still show no growth ID team on the case 04/27/2023 Patient with minimal back pain and his left knee with no significant pain is still warm and swollen with no redness. Initially orthopedic team are planning for surgical debridement of his left knee. However MRI of the lumbar spine showing epidural abscess of the distal thoracic and irrigated proximal lumbar vertebrae. Orthopedic team still on the case with follow the patient and needs surgery was held and replaced to do lumbar surgery with ( T11-L3 decompression and fusion along with epidural abscess/phlegmon evacuation for 04/29/2023.) Preoperative cardiac evaluation is requested Chest pain or dyspnea No change in urine or bowel habits. No fever. Monitor blood pressure Continue with cefazolin I'm resuming the care of the patient on 05/01/2023 Patient's is status post T10-L4 decompression and fusion of the spine and debridement of epidural abscess on 04/29. Postoperatively patient had to be intubated, he got extubated yesterday, his doing well, minimal back pain and about 5/10 in severity, his left knee pain is 0/10 and looks less swollen, nontender and non-erythematous Denies any other complaints He has Streptococcus agalactiae bacteremia Patient currently covered with cefazolin Patient is a transferred out of the ICU today 05/02/2023 Patients with minimal back pain and no knee pain, no significant other complaint He has poor appetite and constipated and started on lactulose today He has some evidence of fluid overload with some ascites and minimal bilateral pleural effusion seen on CAT scan of the abdomen and pelvis today however there is no other acute process, mild ileus is suspected. He remains on cefazolin for his Streptococcus agalactiae bacteremia LAD Lasix 3 days 40 mg on the top of his 20 mg by mouth twice daily Also worked his fluids to D5 normal saline at 50 mL/h and Versed of 100 mL per hour 05/03/2023 Patient mentation. He is awake , not eating since surgery. Has mild stomach ache, abdomen is mildly distended. Abdomen ultrasound ordered and GI team consulted. Patient had 3 bowel movements yesterday for the first time at their worst mushy with no blood His been bothered by his Truong catheter but no suprapubic pain or tenderness. Remains on antibiotic cefazolin and diuretics IV Lasix and Aldactone Objective - Vital Signs Vital signs: Vital Signs Temp 98.0 F 05/03/23 15:15 Pulse 19 L 05/03/23 15:15 Resp 19 05/03/23 15:15 BP 107/72 05/03/23 15:15 Pulse Ox 96 05/03/23 15:15 FiO2 40 04/30/23 13:43 Intake & Output 05/02/23 05/03/23 05/03/23 18:59 06:59 18:59 Intake Total 740 Output Total 401 349 0828 Balance -350 -145 -1300 Intake: Intake, IV Titration 500 Amount Dextrose 5%-0.9% NaCl 1, 500 000 ml @ 50 mls/hr IV . Q20H MARIO Rx#:[id number] Oral 240 Output: Drainage 10 Right Back 10 Urine 495 837 0493 Uretheral (Truong) 500 Other: Voiding Method Indwelling Catheter Indwelling Catheter Indwelling Catheter # Bowel Movements 2 ABP, PAP, CO, CI - Last Documented Arterial Blood Pressure 146/54 - Exam GENERAL: The patient is alert and oriented x3, not in any acute distress. Well developed, well nourished. HEENT: Pupils are round and equally reacting to light. EOMI. No scleral icterus. No conjunctival pallor. Normocephalic, atraumatic. No pharyngeal erythema. No thyromegaly. CARDIOVASCULAR: S1 and S2 present. No murmurs, rubs, or gallops. PULMONARY: Chest is clear to auscultation, no wheezing , no crackles. ABDOMEN: Soft, nontender, nondistended, normoactive bowel sounds. No palpable organomegaly. -MUSCULOSKELETAL: No joint swelling or deformity. Posterior spinal surgical wo und with a dressing in place, rest of exam is deferred to surgery team -EXTREMITIES: No cyanosis, clubbing, or pedal edema. Left knee is swollen, improving NEUROLOGICAL: Gross neurological examination did not reveal any focal deficits. SKIN: No rashes. no petechiae. - Labs CBC & Chem 7: 05/02/23 15:45 05/02/23 15:45 Labs: Abnormal Lab Results - Last 24 Hours (Table) 05/02/23 05/02/23 05/02/23 Range/Units 15:45 15:45 19:45 RBC 3.06 L (4.30-5.90) m/uL Hgb 8.7 L (13.0-17.5) gm/dL Hct 26.9 L (39.0-53.0) % RDW 19.0 H (11.5-15.5) % Sodium 136 L (137-145) mmol/L Chloride 108 H (98-107) mmol/L Carbon Dioxide 21 L (22-30) mmol/L BUN 22 H (9-20) mg/dL Glucose 109 H (74-99) mg/dL POC Glucose (mg/dL) 140 H (70-110) mg/dL Calcium 8.2 L (8.4-10.2) mg/dL Alkaline Phosphatase 152 H (38-126) U/L Total Protein 5.6 L (6.3-8.2) g/dL Albumin 2.3 L (3.5-5.0) g/dL 05/03/23 05/03/23 Range/Units 05:51 11:51 RBC (4.30-5.90) m/uL Hgb (13.0-17.5) gm/dL Hct (39.0-53.0) % RDW (11.5-15.5) % Sodium (137-145) mmol/L Chloride (98-107) mmol/L Carbon Dioxide (22-30) mmol/L BUN (9-20) mg/dL Glucose (74-99) mg/dL POC Glucose (mg/dL) 175 H 141 H (70-110) mg/dL Calcium (8.4-10.2) mg/dL Alkaline Phosphatase (38-126) U/L Total Protein (6.3-8.2) g/dL Albumin (3.5-5.0) g/dL Microbiology - Last 24 Hours (Table) 04/29/23 20:18 Anaerobic Culture - Preliminary Back 04/29/23 20:18 Gram Stain - Preliminary Back Tissue Culture - Preliminary 04/29/23 20:18 Anaerobic Culture - Preliminary Back 04/29/23 20:18 Anaerobic Culture - Preliminary Back 04/29/23 20:18 Anaerobic Culture - Preliminary Back 04/29/23 20:18 Anaerobic Culture - Preliminary Back 04/30/23 20:18 Gram Stain - Final Back Wound Culture - Final 04/29/23 20:18 Gram Stain - Final Back Wound Culture - Final 04/29/23 20:18 Gram Stain - Final Back Wound Culture - Final 04/29/23 20:18 Gram Stain - Final Back Wound Culture - Final Assessment and Plan Assessment: -Strep Algalactaie bacteremia possible source of infection the left knee continue on the IV rocephin 2g was started on at [facility], ID consultation in place for further recommendations most recent blood culture showing clearing of the bacteremia. Repeat cultures have been taken here and pending. Antibiotics have been changed to IV cefazolin. Surgicel planning for knee procedure on 04/29 with preop cardiac evaluation ( this plan for surgery was held because of his new lumbar abscess) -Back pain, MRI of the lumbar spine: Epidural abscess. Orthopedic team are planning for T11-L3 decompression and fusion along with epidural abscess/phlegmon evacuation for 04/29/2023. -Sepsis source of infection possibly an infected left knee prosthesis s/p arthrocentesis of the left knee at [facility] orthopedics following -History of esophageal varices with banding in january -Hypokalemia patient will receive oral supplementation and repeat labs in the AM -Hx of cirrhosis, abdominal ascites ultrasound showing significant ascites s/p paracentesis with 1.5 L off and patient has been started on aldactone and lasix BID swish to IV dose -Hx of GERD -Diabetes Mellitus type 2 hgb A1C 6.9 continue on accuchecks achs and sliding scale insulin. -History of left TKA -Hypertension continues on losartan BID and atenolol. -Hemorrhoids -Chronic alcohol use monitor for alcohol withdrawal Hx of gout continue on allopurinol, GI prophylaxis DVT prophylaxis
[2023-05-04] MEDS: allopurinoL 300 MG TAB PO SCH (10:36)
[2023-05-04 12:00] LABS: Glucose,Whole Blood 129 mg/dL (70-110)
[2023-05-04] MEDS: DEXTROSE 5%-0.9% NACL 1,000 ML IV SCH (12:47)
[2023-05-04] MEDS: MAGNESIUM HYDROXIDE 2,400 MG/30 ML CUP PO SCH (12:48)
--- NOTE | 2023-05-04 13:03 | P.PN ---
Subjective Progress Note Date: 05/04/23 Principal diagnosis: Ascites, liver disease This is a 67-year-old white male who was transferred from [facility] for her concern for possible septic knee days ago. He has a history of alcoholic cirrhosis of the liver and has followed with gastroenterology last se en in November of this year. The patient is a very poor historian and most of this history is obtained from chart. He has a history of ascites and paracentesis and this maintained on Lasix 20 mg twice a day and Aldactone 50 mg twice a day. Has a history of GI bleeding and esophageal varices. Last EGD and colonoscopy in January 2023. Upper endoscopy revealed large mid and distal esophageal varices with red without case status post variceal ligation and mild to moderate portal hypertensive gastropathy. Colonoscopy revealed 5 mm ascending colon polyp and transverse colon polyp status post polypectomy and grade 2 internal hemorrhoids. On as part of his workup at [facility] he had an ultrasound of the abdomen for abdominal distention and was noted to have ascites. He underwent a paracentesis on 04/26/2023 with 1.36 L removed. During this stay he underwent a lumbar spine MRI that was concerning for epidural abscess. He underwent T11 to L3 decompression and fusion with evacu ation of epidural abscess. Apparently during this hospital stay he also had constipation and complaints of abdominal pain. Gen. surgery was consulted by the medical team for constipation. He recently had undergone colonoscopy again without any acute findings he was started on lactulose 30 g daily. He had 3 bowel movements reported today. He had an abdominal ultrasound that shows mild abdominal ascites. Nodular appearing liver suggesting underlying cirrhosis. 05/04/2023 Patient seen and examined today as a follow-up. He seems more alert and answering questions more appropriately. He denies any abdominal pain, nausea or vomiting. States he has not had a bowel movement yet today. Ammonia level was less than 9. Objective - Vital Signs Vital signs: Vital Signs Temp 98.5 F 05/04/23 06:49 Pulse 88 05/04/23 06:49 Resp 16 05/04/23 06:49 BP 168/80 05/04/23 06:49 Pulse Ox 97 05/04/23 06:49 FiO2 40 04/30/23 13:43 Intake & Output 05/03/23 05/04/23 05/04/23 18:59 06:59 18:59 Output Total 1750 1050 Balance -1750 -1050 Output: Urine 1750 1050 Other: Voiding Method Indwelling Catheter Indwelling Catheter # Bowel Movements 1 ABP, PAP, CO, CI - Last Documented Arterial Blood Pressure 146/54 - Exam General appearance: The patient is alert, oriented, appears in no acute distress. HET: Head is normocephalic and atraumatic. Conjunctiva pink. Sclera anicteric. Neck: Supple without lymphadenopathy. Abdomen: Soft, nontender, distended, tympanic. No ascites. No guarding or rigidity. Extremities: Normal skin color and turgor. No pedal edema Skin: No rashes, no jaundice Neurological: No focal deficits. Alert and oriented. - Labs CBC & Chem 7: 05/02/23 15:45 05/02/23 15:45 Labs: Abnormal Lab Results - Last 24 Hours (Table) 05/03/23 05/03/23 05/03/23 Range/Units 11:51 16:52 20:07 POC Glucose (mg/dL) 141 H 179 H 137 H (70-110) mg/dL 05/04/23 Range/Units 06:23 POC Glucose (mg/dL) 142 H (70-110) mg/dL Microbiology - Last 24 Hours (Table) 04/29/23 20:18 Gram Stain - Final Back Tissue Culture - Final 04/23/23 16:36 Fungal Culture - Preliminary Ascites Fluid 04/23/23 16:36 Acid Fast Bacilli Smear - Preliminary Ascites Fluid Acid Fast Bacilli Culture - Preliminary 04/29/23 20:18 Anaerobic Culture - Preliminary Back Assessment and Plan (1) Alcoholic cirrhosis of liver Narrative/Plan: 67-year-old with history of ongoing alcohol abuse follows with gastroenterology for colic cirrhosis of liver with history of esophageal varices, ascites who is admitted to the hospital for bacteremia and found to have a epidural abscess. During a the admission he was noted to have distended abdomen and underwent paracentesis. Home medications had included Lasix 20 mg twice a day and Aldactone 50 mg twice a day according to notes from last GI visit in November 2022. The patient is a poor historian at this time. Even though he is alert and oriented 3 he was unable to give much history initially. Will obtain ammonia level. LFTs are all within normal limits with elevation of alkaline phosphatase but again patient recently had a tone and concern for septic knee as well as epidural abscess. Abdomen tympanic without any significant fluid at this time. Continue with Lasix as ordered, will increase Aldactone to 50 mg tw ice a day. Current Visit: Yes Status: Acute Code(s): K70.30 - ALCOHOLIC CIRRHOSIS OF LIVER WITHOUT ASCITES SNOMED Code(s): 244207643 (2) Ascites Current Visit: Yes Status: Acute Code(s): R18.8 - OTHER ASCITES SNOMED Code(s): 877306157 Plan: 1. Continue symptomatic and supportive care 2. Continue lactulose as ordered for now 3. Increase Aldactone to 50 mg twice a day 4. Continue alcohol abstinence 4. No need for paracentesis, patient with small amount of fluid noted on ultrasound and tympanic abdomen 5. No further workup by gastroenterology. Patient is cleared for discharge. Patient can follow-up in the office as previously scheduled. Thank you for this consultation, we will continue to follow. Dr. Nicolle Bangura I agree with the dictator's note, documented as a scribe by Chasidy Jeffries.
--- NOTE | 2023-05-04 13:05 | P.PN ---
Subjective Progress Note Date: 05/04/23 05/03/2023, patient is postop day #4 following T11-L3 decompression of an epidural abscess. The patient was on a mechanical ventilator and the patient was extubated on 04/30/2023 and the patient is currently on room air oxygen. The patient also has multiple other comorbidities. The patient had streptococcal septicemia related to an infected septic left knee. The patient has liver cirrhosis, diabetes mellitus, hypertension hyperlipidemia and gout and previous history of chronic alcohol use. Currently hemodynamically stable. The patient is currently on room air oxygen and not having any major respiratory difficulties. The blood cultures. The patient is currently on IV cefazolin. The left knee cultures have revealed no growth. Overall fluid was also negative. Blood culture was also negative. During the course of her illness, the patient received a total of 2 units of packed RBC and hemoglobin is stable for now. The patient continues to have abdominal distention secondary to ascites and liver cirrhosis. A consultation was placed for interventional radiology to undergo a paracentesis. He continues to have issues related to pain. Unable to ambulate. Physical therapy has been able to put him on a chair for brief period of time. Using incentive spirometer. On today's evaluation of 05/04/2023, the patient is postop day #5. The patient doing well and he is able to sit up on a chair. He remains on IV cefazolin. No significant ascites was noted. The patient was given laxatives and the patient had a large bowel movement. Abdomen is less distended on today's evaluation. He continues to receive Lasix 40 mg IV every 12 hours. Rest of the medications remain unchanged.No altered mentation. No chest pain. He is using the incentive spirometer. Objective - Vital Signs Vital signs: Vital Signs Temp 98.5 F 05/04/23 06:49 Pulse 88 05/04/23 06:49 Resp 16 05/04/23 06:49 BP 168/80 05/04/23 06:49 Pulse Ox 97 05/04/23 06:49 FiO2 40 04/30/23 13:43 Intake & Output 05/03/23 05/04/23 05/04/23 18:59 06:59 18:59 Intake Total 450 Output Total 1750 1050 Balance -1750 -1050 450 Intake: Intake, IV Titration 450 Amount Dextrose 5%-0.9% NaCl 1, 400 000 ml @ 50 mls/hr IV . Q20H MARIO Rx#:[id number] ceFAZolin 2 gm In Sodium 50 Chloride 0.9% 50 ml @ 100 mls/hr IVPB Q8HR MARIO Rx# :[id number] Output: Urine 1750 1050 Other: Voiding Method Indwelling Catheter Indwelling Catheter # Bowel Movements 1 ABP, PAP, CO, CI - Last Documented Arterial Blood Pressure 146/54 - Exam GENERAL EXAM: Alert, pleasant 67-year-old male, on room air, fairly comfortable in no apparent distress. HEAD: Normocephalic. EYES: Normal reaction of pupils, equal size. NOSE: Clear with pink turbinates. THROAT: No erythema or exudates. NECK: No masses, no JVD. CHEST: No chest wall deformity. LUNGS: Equal air entry with no crackles, wheeze, rhonchi or dullness. CVS: S1 and S2 normal with no audible murmur, regular rhythm. ABDOMEN: Distended No hepatosplenomegaly, normal bowel sounds, no guarding or rigidity. SPINE: Surgical dressing dry and intact. Drain remains in place. SKIN: No rashes CENTRAL NERVOUS SYSTEM: No focal deficits, tone is normal in all 4 extremities. EXTREMITIES: There is 1-2+ peripheral edema. No clubbing, no cyanosis. Peripheral pulses are intact. - Labs CBC & Chem 7: 05/02/23 15:45 05/02/23 15:45 Labs: Abnormal Lab Results - Last 24 Hours (Table) 05/03/23 05/03/23 05/03/23 Range/Units 11:51 16:52 20:07 POC Glucose (mg/dL) 141 H 179 H 137 H (70-110) mg/dL 05/04/23 Range/Units 06:23 POC Glucose (mg/dL) 142 H (70-110) mg/dL Microbiology - Last 24 Hours (Table) 04/29/23 20:18 Gram Stain - Final Back Tissue Culture - Final 04/23/23 16:36 Fungal Culture - Preliminary Ascites Fluid 04/23/23 16:36 Acid Fast Bacilli Smear - Preliminary Ascites Fluid Acid Fast Bacilli Culture - Preliminary 04/29/23 20:18 Anaerobic Culture - Preliminary Back Assessment and Plan Plan: Assessment Postop day # 5 following T11-L3 decompression of the epidural abscess. Patient is currently on IV cefazolin. Sepsis source thought to be infection of the left knee prosthesis status post arthrocentesis of the left knee Septic left knee infection Liver cirrhosis with ascites and history of esophageal varices Abdominal distention/ascites secondary to liver cirrhosis, and the patient was not found to have significant ascites and the patient was given laxatives with improvement in his abdominal distention Diabetes mellitus type 2 Previous history of left total knee arthroplasty Hypertension Hyperlipidemia Gout Alcoholism Plan Pulmonary status is stable. Continue using incentive spirometer Continue IV cefazolin Continue IV Lasix 40 milligrams every 12 hours and stop the oral diuretics for now No significant ascites for paracentesis and the patient was given laxatives with adequate bowel movement and improvement in his abdominal distention. Encourage use of incentive spirometer Patient is currently on room air oxygen Overall rest or status is stable.
--- NOTE | 2023-05-04 13:52 | P.PN ---
Subjective Progress Note Date: 05/04/23 CHIEF COMPLAINT: Abdominal distention HISTORY OF PRESENT ILLNESS: Patient denies any abdominal pain. He had a watery stool yesterday. He is having flatus. Computed tomography scan abdomen had shown ascites. There may be some mild ileus. No significant fecal debris to suggest constipation. Abdominal ultrasound completed only showing a small amount of ascites. Not enough for paracentesis. Patient hospitalized for a decompression of epidural abscess from T11 to L3. And infection in the left kne e prosthesis. Currently on antibiotics. Patient had a low-grade temperature 100 last night. Patient having poor oral intake PHYSICAL EXAM: VITAL SIGNS: Reviewed. GENERAL: Well-developed in no acute distress. ABDOMEN: Soft. Distended. Nontender.. NEUROLOGIC: Alert and oriented. Cranial nerves II through XII grossly intact. ASSESSMENT: 1. Abdominal distention 2. Ileus 3. History of liver cirrhosis with ascites 4. Septic left knee infection 5. T 11 through L3 decompression of the epidural abscess PLAN: -Downgraded diet to full liquids -No surgical intervention planned -Continue laxatives and stool softeners -Continue regular diet -GI service has adjusted diuretics -Encouraged patient to increase activity level Physician Welding Machine Operator note has been reviewed by physician. Signing provider agrees with the documented findings, assessment, and plan of care. Objective - Vital Signs Vital signs: Vital Signs Temp 98.5 F 05/04/23 06:49 Pulse 88 05/04/23 06:49 Resp 16 05/04/23 06:49 BP 168/80 05/04/23 06:49 Pulse Ox 97 05/04/23 06:49 FiO2 40 04/30/23 13:43 Intake & Output 05/03/23 05/04/23 05/04/23 18:59 06:59 18:59 Intake Total 450 Output Total 1750 1050 Balance -1750 -1050 450 Intake: Intake, IV Titration 450 Amount Dextrose 5%-0.9% NaCl 1, 400 000 ml @ 50 mls/hr IV . Q20H MARIO Rx#:[id number] ceFAZolin 2 gm In Sodium 50 Chloride 0.9% 50 ml @ 100 mls/hr IVPB Q8HR MARIO Rx# :[id number] Output: Urine 1750 1050 Other: Voiding Method Indwelling Catheter Indwelling Catheter Indwelling Catheter # Bowel Movements 1 ABP, PAP, CO, CI - Last Documented Arterial Blood Pressure 146/54 - Labs CBC & Chem 7: 05/02/23 15:45 05/02/23 15:45 Labs: Abnormal Lab Results - Last 24 Hours (Table) 05/03/23 05/03/23 05/04/23 Range/Units 16:52 20:07 06:23 POC Glucose (mg/dL) 179 H 137 H 142 H (70-110) mg/dL 05/04/23 Range/Units 11:56 POC Glucose (mg/dL) 129 H (70-110) mg/dL Microbiology - Last 24 Hours (Table) 04/29/23 20:18 Anaerobic Culture - Final Back 04/29/23 20:18 Anaerobic Culture - Final Back 04/29/23 20:18 Anaerobic Culture - Final Back 04/29/23 20:18 Anaerobic Culture - Final Back 04/29/23 20:18 Anaerobic Culture - Final Back 04/29/23 20:18 Gram Stain - Final Back Tissue Culture - Final 04/23/23 16:36 Fungal Culture - Preliminary Ascites Fluid 04/23/23 16:36 Acid Fast Bacilli Smear - Preliminary Ascites Fluid Acid Fast Bacilli Culture - Preliminary
--- NOTE | 2023-05-04 16:14 | P.PN ---
Subjective Progress Note Date: 05/03/23 Principal diagnosis: Reason for follow-up with Streptococcus bacteremia and concern for possible left knee septic arthritis Patient is a 67-year-old male with a past medical history significant for chronic alcoholism cirrhosis diabetes mellitus reflux in this patient who did have a left knee arthroplasty done by Dr. Bishop patient recently presented to [facility] about a week ago for evaluation of fever patient did have Streptococcus agalactiae bacteremia and the patient was noticed to have some swelling to the left knee s/p aspirate with a white count of 20,000 concerning for septic need for the patient was transferred to [facility] to be evaluated by his orthopedic surgeon.Patient did have an MRI of the lumbar spine suspicious for epidural abscess from T12-L2 and possible discitis L1-L2 MRI cervical spine no epidural abscess MRI thoracic spine tissues extension of the abscess to the T11 vertebra. Patient is status post laminectomy and drainage of the epidural abscess and implant of rods and screws life spine provide left cage, procedure completed on 04/29/2023. On today's evaluation that is 05/03/2023, the patient continues to be afebrile patient is breathing comfortably on room air without need for supplemental oxygen the patient denies chest pain did have occasional cough no sputum production patient has been complaining of more abdominal distention and pain today did have some nausea but no vomiting and did not have any bowel movement No new labs has been obtained today OR cultures currently pending Objective - Vital Signs Vital signs: Vital Signs Temp 98.2 F 05/03/23 07:19 Pulse 91 05/03/23 07:19 Resp 18 05/03/23 07:19 BP 137/75 05/03/23 07:19 Pulse Ox 96 05/03/23 07:19 FiO2 40 04/30/23 13:43 Intake & Output 05/02/23 05/03/23 05/03/23 18:59 06:59 18:59 Intake Total 740 Output Total 932 657 7477 Balance -350 -145 -1300 Intake: Intake, IV Titration 500 Amount Dextrose 5%-0.9% NaCl 1, 500 000 ml @ 50 mls/hr IV . Q20H [facility] Rx#:[id number] Oral 240 Output: Drainage 10 Right Back 10 Urine [phone] Uretheral (Truong) 500 Other: Voiding Method Indwelling Catheter Indwelling Catheter Indwelling Catheter # Bowel Movements 2 ABP, PAP, CO, CI - Last Documented Arterial Blood Pressure 146/54 - Exam GENERAL DESCRIPTION: An elderly male lying in bed RESPIRATORY SYSTEM: Unlabored breathing , decreased breath sounds at bases HEART: S1 S2 regular rate and rhythm , ABDOMEN: Soft , no tenderness EXTREMITIES: No edema feet - Labs CBC & Chem 7: 05/02/23 15:45 05/02/23 15:45 Labs: Abnormal Lab Results - Last 24 Hours (Table) 05/02/23 05/02/23 05/02/23 Range/Units 15:45 15:45 19:45 RBC 3.06 L (4.30-5.90) m/uL Hgb 8.7 L (13.0-17.5) gm/dL Hct 26.9 L (39.0-53.0) % RDW 19.0 H (11.5-15.5) % Sodium 136 L (137-145) mmol/L Chloride 108 H (98-107) mmol/L Carbon Dioxide 21 L (22-30) mmol/L BUN 22 H (9-20) mg/dL Glucose 109 H (74-99) mg/dL POC Glucose (mg/dL) 140 H (70-110) mg/dL Calcium 8.2 L (8.4-10.2) mg/dL Alkaline Phosphatase 152 H (38-126) U/L Total Protein 5.6 L (6.3-8.2) g/dL Albumin 2.3 L (3.5-5.0) g/dL 05/03/23 05/03/23 Range/Units 05:51 11:51 RBC (4.30-5.90) m/uL Hgb (13.0-17.5) gm/dL Hct (39.0-53.0) % RDW (11.5-15.5) % Sodium (137-145) mmol/L Chloride (98-107) mmol/L Carbon Dioxide (22-30) mmol/L BUN (9-20) mg/dL Glucose (74-99) mg/dL POC Glucose (mg/dL) 175 H 141 H (70-110) mg/dL Calcium (8.4-10.2) mg/dL Alkaline Phosphatase (38-126) U/L Total Protein (6.3-8.2) g/dL Albumin (3.5-5.0) g/dL Microbiology - Last 24 Hours (Table) 04/29/23 20:18 Anaerobic Culture - Preliminary Back 04/29/23 20:18 Gram Stain - Preliminary Back Tissue Culture - Preliminary 04/29/23 20:18 Anaerobic Culture - Preliminary Back 04/29/23 20:18 Anaerobic Culture - Preliminary Back 04/29/23 20:18 Anaerobic Culture - Preliminary Back 04/29/23 20:18 Anaerobic Culture - Preliminary Back 04/30/23 20:18 Gram Stain - Final Back Wound Culture - Final 04/29/23 20:18 Gram Stain - Final Back Wound Culture - Final 04/29/23 20:18 Gram Stain - Final Back Wound Culture - Final 04/29/23 20:18 Gram Stain - Final Back Wound Culture - Final Assessment and Plan (1) Allergy to sulfa drugs Current Visit: Yes Status: Acute Code(s): Z88.2 - ALLERGY STATUS TO SULFONAMIDES SNOMED Code(s): 72095955 (2) Bacteremia due to Streptococcus Current Visit: Yes Status: Acute Code(s): R78.81 - BACTEREMIA; B95.5 - UNSP STREPTOCOCCUS THE CAUSE OF DISEASES [facility]SD [facility] SNOMED Code(s): 080618630047 (3) Septic arthritis of knee, left Current Visit: Yes Status: Acute Code(s): M00.9 - PYOGENIC ARTHRITIS, UN SPECIFIED SNOMED Code(s): 738696140 (4) Abscess in epidural space of lumbar spine Current Visit: Yes Status: Acute Code(s): G06.1 - INTRASPINAL ABSCESS AND GRANULOMA SNOMED Code(s): 710981674 (5) Discitis of lumbar region Current Visit: Yes Status: Acute Code(s): M46.46 - DISCITIS, UNSPECIFIED, LUMBAR REGION SNOMED Code(s): 352080152 Plan: 1patient presented to hospital with weakness fever did have Streptococcus agalactiae bacteremia in this patient who did have a significant swelling to the left knee along with the stiffness with aspiration of the left knee cell count more than 20,000 white cell high clinical suspicious for septic arthritis likely related to streptococci 2- -blood cultures repeat has been negative 3patient did have an MRI of the lumbar spine suspicious for epidural abscess from T12-L2 and possible discitis L1-L2, MRI of the cervical spine was negative for any epidural abscess MRI of the thoracic spine did show extension of the abscess to T11 vertebra, the patient status post drainage of the epidural abscess along with laminectomy and hardware placement on 04/29/2023, OR cultures so far negative 4-patient is afebrile and white count has normalized, patient to continue with cefazolin 2 g every 8 hours, patient seem to have a problem with abdominal pain question related to ascites and will benefit from paracentesis Dictation was produced using [employer] dictation software. please excuse any grammatical, word or spelling errors. Time with Patient: Less than 30
--- NOTE | 2023-05-04 16:15 | P.PN ---
Subjective Progress Note Date: 05/04/23 Principal diagnosis: Reason for follow-up with Streptococcus bacteremia and concern for possible left knee septic arthritis Patient is a 67-year-old male with a past medical history significant for chronic alcoholism cirrhosis diabetes mellitus reflux in this patient who did have a left knee arthroplasty done by Dr. Bishop patient recently presented to [facility] about a week ago for evaluation of fever patient did have Streptococcus agalactiae bacteremia and the patient was noticed to have some swelling to the left knee s/p aspirate with a white count of 20,000 concerning for septic need for the patient was transferred to [facility] to be evaluated by his orthopedic surgeon.Patient did have an MRI of the lumbar spine suspicious for epidural abscess from T12-L2 and possible discitis L1-L2 MRI cervical spine no epidural abscess MRI thoracic spine tissues extension of the abscess to the T11 vertebra. Patient is status post laminectomy and drainage of the epidural abscess and implant of rods and screws life spine provide left cage, procedure completed on 04/29/2023. On today's evaluation that is 05/04/2023, the patient remains to be afebrile, the patient is breathing comfortably on room air and the patient denies any shortness of breath, the patient denies chest pain or any cough , patient denies any nausea/vomiting did have improvement in his abdominal discomfort after he did have a good bowel movement yesterday apparently abdominal ultrasound shows not enough fluid for paracentesis No new labs has been obtained today OR cultures currently pending Objective - Vital Signs Vital signs: Vital Signs Temp 98.5 F 05/04/23 06:49 Pulse 88 05/04/23 06:49 Resp 16 05/04/23 06:49 BP 168/80 05/04/23 06:49 Pulse Ox 97 05/04/23 06:49 FiO2 40 04/30/23 13:43 Intake & Output 05/03/23 05/04/23 05/04/23 18:59 06:59 18:59 Intake Total 450 Output Total 1750 1050 Balance -1750 -1050 450 Intake: Intake, IV Titration 450 Amount Dextrose 5%-0.9% NaCl 1, 400 000 ml @ 50 mls/hr IV . Q20H [facility] Rx#:[id number] ceFAZolin 2 gm In Sodium 50 Chloride 0.9% 50 ml @ 100 mls/hr IVPB Q8HR [facility] Rx# :[id number] Output: Urine 1750 1050 Other: Voiding Method Indwelling Catheter Indwelling Catheter Indwelling Catheter # Bowel Movements 1 ABP, PAP, CO, CI - Last Documented Arterial Blood Pressure 146/54 - Exam GENERAL DESCRIPTION: An elderly male lying in bed RESPIRATORY SYSTEM: Unlabored breathing , decreased breath sounds at bases HEART: S1 S2 regular rate and rhythm , ABDOMEN: Soft , no tenderness EXTREMITIES: No edema feet - Labs CBC & Chem 7: 05/02/23 15:45 05/02/23 15:45 Labs: Abnormal Lab Results - Last 24 Hours (Table) 05/03/23 05/03/23 05/04/23 Range/Units 16:52 20:07 06:23 POC Glucose (mg/dL) 179 H 137 H 142 H (70-110) mg/dL 05/04/23 Range/Units 11:56 POC Glucose (mg/dL) 129 H (70-110) mg/dL Microbiology - Last 24 Hours (Table) 04/29/23 20:18 Anaerobic Culture - Final Back 04/29/23 20:18 Anaerobic Culture - Final Back 04/29/23 20:18 Anaerobic Culture - Final Back 04/29/23 20:18 Anaerobic Culture - Final Back 04/29/23 20:18 Anaerobic Culture - Final Back 04/29/23 20:18 Gram Stain - Final Back Tissue Culture - Final 04/23/23 16:36 Fungal Culture - Preliminary Ascites Fluid 04/23/23 16:36 Acid Fast Bacilli Smear - Preliminary Ascites Fluid Acid Fast Bacilli Culture - Preliminary Assessment and Plan (1) Allergy to sulfa drugs Current Visit: Yes Status: Acute Code(s): Z88.2 - ALLERGY STATUS TO SULFONAMIDES SNOMED Code(s): 04960450 (2) Bacteremia due to Streptococcus Current Visit: Yes Status: Acute Code(s): R78.81 - BACTEREMIA; B95.5 - UNSP STREPTOCOCCUS THE CAUSE OF DISEASES CL[facility]SD [facility] SNOMED Code(s): 008984947242 (3) Septic arthritis of knee, left Current Visit: Yes Status: Acute Code(s): M00.9 - PYOGENIC ARTHRITIS, UNSPECIFIED SNOMED Code(s): 842982551 (4) Abscess in epidural space of lumbar spine Current Visit: Yes Status: Acute Code(s): G06.1 - INTRASPINAL ABSCESS AND GRANULOMA SNOMED Code(s): 049883570 (5) Discitis of lumbar region Current Visit: Yes Status: Acute Code(s): M46.46 - DISCITIS, UNSPECIFIED, LUMBAR REGION SNOMED Code(s): 675183738 Plan: 1patient presented to hospital with weakness fever did have Streptococcus a galactiae bacteremia in this patient who did have a significant swelling to the left knee along with the stiffness with aspiration of the left knee cell count more than 20,000 white cell high clinical suspicious for septic arthritis likely related to streptococci 2- -blood cultures repeat has been negative 3patient did have an MRI of the lumbar spine suspicious for epidural abscess from T12-L2 and possible discitis L1-L2, MRI of the cervical spine was negative for any epidural abscess MRI of the thoracic spine did show extension of the abscess to T11 vertebra, the patient status post drainage of the epidural abscess along with laminectomy and hardware placement on 04/29/2023, OR cultures so far negative 4-patient is afebrile and white count has normalized, 4- patient to continue with cefazolin 2 g every 8 hours, we will order PICC line for outpatient IV antibiotics Dictation was produced using [employer] dictation software. please excuse any grammatical, word or spelling errors. Time with Patient: Less than 30
[2023-05-04 16:31] LABS: Glucose,Whole Blood 121 mg/dL (70-110)
[2023-05-04] MEDS: COLESEVELAM 625 MG TAB PO SCH (17:49)
[2023-05-04] MEDS: traMADol 50 MG TAB PO PRN (20:10)
[2023-05-04] MEDS: hydrALAZINE HCL 20 MG/ML 1 ML VIAL IVP PRN (20:11)
[2023-05-04 20:44] LABS: Glucose,Whole Blood 137 mg/dL (70-110)
--- NOTE | 2023-05-05 04:48 | P.PN ---
Subjective Progress Note Date: 05/04/23 This is a 67-year-old male patient of Dr. Loli Campbell, patient has medical history of abdominal ascites and liver cirrhosis, chronic alcoholism, diabetes mellitus, hemorrhoids, gastroesophageal reflux disease. Patient follows with dr rocco turcios underwent upper and lower endoscopy in January of 2023 has history of esophageal varices which underwent banding in Jan as well. Has a history of left lower extremity total knee arthroplasty done a year ago, initially presented to [facility] with left lower extremity edema with concern for infected prosthetic of the left knee. He presented to [facility] with fevers progressive weakness and back pain. States fever was as high as 104. He was also anemic hemoglobin 6.5 requiring 2 unit of PRBC. Patient was found to have strep agalactaie bacteremia with features of sepsis over at [facility]. He was treated with IV ceftriaxone 2 grams. Patient also with recent influenza infection and hypoxia at [facility]. He had a venous doppler of the left leg at [facility] negative for acute DVT. He underwent arthrocentesis of the left knee joint effusion show ing 20,000 WBCs and suspicious for infected prosthesis was recommended to transfer to [facility] for further evaluation by Dr Bishop. Yesterday before transfer he underwent work up for abdominal ascites which he has undergo paracentesis in the past, he had an abdominal ultrasound showing significant amount of intraabdominal ascites. IR consulted. He is admitted to this hospital with consults placed to [place] and infectious disease. 04/24/2023 Patient evaluated today sitting up in bed. He was seen in consultation by ID who has changed antibiotics to IV cefazolin from ceftriaxone with plans to repeat blood culture. Underwent paracentesis 1.5 L off. Sodium 135, potassium 3.3, BUN 8, creatinine 0.50, magnesium 1.8, CRP 6.2. Orthopedics not recommending any surgical intervention at this time. 04/25/2023 Patient is evaluated today resting in bed. pts is at the bedside and plan of care was discussed thoroughly. Patient remains on IV Cefazolin with repeat blood cultures pending and negative so far. Infectious disease is following this case. He is status post paracentesis. Again orthopedics not recommending any surgical intervention for the right knee septic arthritis. 04/26/2023 Patient is still complaining from left knee swelling, patient states is better, pain controlled no erythema. Orthopedic surgery planning for surgery for infected prosthesis onto stages first one on 04/29 MRI of the lumbar spine is ordered to rule out infection Cardiology team preoperative evaluation is ordered Patient remains on IV cefazolin Repeat blood culture/6 still show no growth ID team on the case 04/27/2023 Patient with minimal back pain and his left knee with no significant pain is still warm and swollen with no redness. Initially orthopedic team are planning for surgical debridement of his left knee. However MRI of the lumbar spine showing epidural abscess of the distal thoracic and irrigated proximal lumbar vertebrae. Orthopedic team still on the case with follow the patient and needs surgery was held and replaced to do lumbar surgery with ( T11-L3 decompression and fusion along with epidural abscess/phlegmon evacuation for 04/29/2023.) Preoperative cardiac evaluation is requested Chest pain or dyspnea No change in urine or bowel habits. No fever. Monitor blood pressure Continue with cefazolin 04/28. Patient seen and examined. Still has left knee pain. 04/29/2023 Patient is seen this am and awaiting T11-L3 decompression and fusion along with epidural abscess/phlegmon evacuation some time today with orthopedics. ID following and patient is continued on IV antibiotics and awaiting surgery and finalized cultures. Will await and discuss with ortho regarding left knee as patient continues to report left knee swelling and pain. Patient is afebrile with no reports of chest pain or shortness of breath. Patient hemoglobin is 9 today and per ortho patient is to receive 2 units of blood for surgery. Will await surgical report 04/30/2023 Patient is seen in follow-up this morning continues on mechanical ventilation and FiO2 is currently 60% with the PEEP of 5. Patient continues on low-dose Levophed 0.01 and is status post T11-L3 decompression. Per nursing staff patient is slowly being weaned off Levophed and working on sedation trials for weaning off mechanical ventilation. Patient continues on IV antibiotics with infectious disease following. Deep tissue cultures obtained and pending at this time. Patient is afebrile. Patient has indwelling Truong catheter with minimal output noted and will add lactated Ringer 700 mL per hour and follow-up with repeat labs. 05/02/2023 Patients with minimal back pain and no knee pain, no significant other complaint He has poor appetite and constipated and started on lactulose today He has some evidence of fluid overload with some ascites and minimal bilateral pleural effusion seen on CAT scan of the abdomen and pelvis today however there is no other acute process, mild ileus is suspected. He remains on cefazolin for his Streptococcus agalactiae bacteremia LAD Lasix 3 days 40 mg on the top of his 20 mg by mouth twice daily Also worked his fluids to D5 normal saline at 50 mL/h and Versed of 100 mL per hour 05/03/2023 Patient mentation. He is awake , not eating since surgery. Has mild stomach ache, abdomen is mildly distended. Abdomen ultrasound ordered and GI team consulted. Patient had 3 bowel movements yesterday for the first time at their worst mushy with no blood His been bothered by his Truong catheter but no suprapubic pain or tenderness. Remains on antibiotic cefazolin and diuretics IV Lasix and Aldactone 05/04/2023 Patient is seen today in follow up currently sitting up in the chair with family at the bedside. Pattient is status post t11-L3 decompression. Patient is continued on IV lasix and awaiting am labs. Per nursing staff he was not tolerating much diet and having distention and diet was decreased to full liquids. Patient was able to have a bowel movement. Patient is extremely weak and has not been up and moving much. Patient with significant weakness, will need ecf on discharge. Patient is afebrile with no reports of chest pain or shortness of breath. Patient is being followed by GI as well for the ascites. Patient reports he had a paracentesis last week some time. Poor historian. Review of systems: Constitutional: No reports of fatigue, fever, or chills Cardiovascular: No reports of chest pain or palpitations Respiratory: No reports of shortness of breath or cough GI: No reports of nausea, vomiting, or diarrhea, reports having bowel movements : No reports of dysuria or retention Neurovascular: reports of generalized weakness and some back pain All medications have been reviewed PHYSICAL EXAMINATION: GENERAL: The patient is a 67-year-old male who is awake, alert and oriented x2- 3. Well developed, well nourished. Obese HEENT: Pupils are round and equally reacting to light. EOMI. No scleral icterus. No conjunctival pallor. Normocephalic, atraumatic. No pharyngeal erythema. No thyromegaly. CARDIOVASCULAR: S1 and S2 muffled PULMONARY: Chest is clear to auscultation, no wheezing or crackles. ABDOMEN: Soft, nontender, less distended, normoactive bowel sounds. No palpable organomegaly. MUSCULOSKELETAL: No joint swelling or deformity. Left knee with no obvious swelling or erythema noted EXTREMITIES: No cyanosis, clubbing, or pedal edema. NEUROLOGICAL: no reported numbness or tingling of extremities. diffusely weak SKIN: No rashes. Assessment: Patient is postop T11-L3 decompression Strep Algalactaie bacteremia with features of sepsis, ongoing likely due to epidural abscess as well as concerns for left knee septic joint Left knee septic joint Epidural abscess History of esophageal varices with banding in january Hypokalemia, improved Hx of cirrhosis, abdominal ascites ultrasound showing significant ascites s/p paracentesis with 1.5 L off and continued on aldactone and lasix BID. Hx of GERD Diabetes Mellitus type 2 hgb A1C 6.9 continue on accuchecks achs and sliding scale insulin. History of left TKA Hypertension continues on losartan BID and atenolol. Hemorrhoids Chronic alcohol use monitor for alcohol withdrawal Hx of gout continue on allopurinol GI prophylaxis DVT prophylaxis Full code Plan: Patient is status post T11-L3 decompression and fusion along with epidural abscess/phlegmon evacuation Patient is currently sitting up in the chair and per nursing staff has not been up and moving very much needs encouragement with increased activity Continue to monitor urinary output as patient has indwelling Truong catheter GI following with ascites and status post 1.5 L from paracentesis Patient reports is now having bowel movements Diet was reduced to full liquids per surgery Recommend repeat labs in the a.m. and replace electrolytes per protocol Case management/social work following this patient will require ECF on discharge as patient is significantly weak and will likely require IV antibiotic therapy Patient to continue on IV antibiotics per ID recommendations The impression and plan of care has been dictated by Cortney Pierce Nurse Practitioner as directed. Dr. Danuta MD I have performed a history and examination and MDM of this patient, discussed the same with the dictator, and agree with the dictator's assessment and plan as written ,documented as a scribe. Based on total visit time, I have performed more than 50% of the visit. Objective - Vital Signs Vital signs: Vital Signs Temp 98.5 F 05/04/23 06:49 Pulse 88 05/04/23 06:49 Resp 16 05/04/23 06:49 BP 168/80 05/04/23 06:49 Pulse Ox 97 05/04/23 06:49 FiO2 40 04/30/23 13:43 Intake & Output 05/03/23 05/04/23 05/04/23 18:59 06:59 18:59 Output Total 1750 1050 Balance -1750 -1050 Output: Urine 1750 1050 Other: Voiding Method Indwelling Catheter Indwelling Catheter # Bowel Movements 1 ABP, PAP, CO, CI - Last Documented Arterial Blood Pressure 146/54 - Labs CBC & Chem 7: 05/02/23 15:45 05/02/23 15:45 Labs: Abnormal Lab Results - Last 24 Hours (Table) 05/03/23 05/03/23 05/03/23 Range/Units 11:51 16:52 20:07 POC Glucose (mg/dL) 141 H 179 H 137 H (70-110) mg/dL 05/04/23 Range/Units 06:23 POC Glucose (mg/dL) 142 H (70-110) mg/dL Microbiology - Last 24 Hours (Table) 04/29/23 20:18 Gram Stain - Final Back Tissue Culture - Final 04/23/23 16:36 Fungal Culture - Preliminary Ascites Fluid 04/23/23 16:36 Acid Fast Bacilli Smear - Preliminary Ascites Fluid Acid Fast Bacilli Culture - Preliminary 04/29/23 20:18 Anaerobic Culture - Preliminary Back
[2023-05-05 06:33] LABS: Glucose,Whole Blood 133 mg/dL (70-110)
[2023-05-05] MEDS: INSULIN ASPART (NovoLOG) 100 UNIT/ML VIAL SQ SCH ×4 (06:37→22:11)
[2023-05-05 06:55] LABS: INR 1.5 (<1.2); Partial Thromboplastin Time 31.4 sec (22.0-30.0); Prothrombin Time 15.3 sec (10.0-12.5)
[2023-05-05] MEDS: HEPARIN SODIUM,PORCINE 5,000 UNIT/ML 1 ML VIAL SQ SCH ×2 (07:20→22:11)
[2023-05-05] MEDS: CHOLECALCIFEROL 25 MCG (1000 IU) TABLET PO SCH (07:53)
[2023-05-05] MEDS: SPIRONOLACTONE 25 MG TAB PO SCH ×2 (07:53→22:11)
[2023-05-05] MEDS: LACTULOSE 20 GM/30 ML CUP PO SCH (07:53)
[2023-05-05] MEDS: PANTOPRAZOLE 40 MG TABLET PO SCH (07:53)
[2023-05-05] MEDS: ASPIRIN 81 MG PO SCH (07:54)
[2023-05-05] MEDS: allopurinoL 300 MG TAB PO SCH (07:54)
[2023-05-05] MEDS: ASCORBIC ACID 500 MG TAB PO SCH (07:54)
[2023-05-05] MEDS: atenoloL 50 MG TAB PO SCH (07:54)
[2023-05-05] MEDS: MULTIVITAMINS, THERA 1 EACH TAB PO SCH (07:54)
[2023-05-05] MEDS: SENNOSIDES-DOCUSATE SODIUM 1 EACH TAB PO SCH (07:54)
[2023-05-05] MEDS: LOSARTAN 50 MG TAB PO SCH ×2 (07:54→22:11)
[2023-05-05] MEDS: FUROSEMIDE 10 MG/ML 4 ML VIAL IV SCH ×2 (08:09→22:10)
[2023-05-05 08:55] LABS: Basophils # (A) 0.09 X 10*3/uL (0.00-0.10); Basophils % (A) 1.2 %; Eosinophils # (A) 0.42 X 10*3/uL (0.04-0.35); Eosinophils % (A) 5.6 %; HCT 26.4 % (39.6-50.0); HGB 8.4 g/dL (13.0-17.0); Lymphocytes # (A) 1.16 X 10*3/uL (0.90-5.00); Lymphocytes % (A) 15.6 %; MCH 27.7 pg (27.0-32.0); MCHC 31.8 g/dL (32.0-37.0); MCV 87.1 FL (80.0-97.0); Mean Platelet Volume 9.8 FL (9.5-12.2); Monocytes # (A) 0.75 X 10*3/uL (0.20-1.00); Monocytes % (A) 10.1 %; NRBC Per 100 WBC 0 X 10*3/uL (0.00-0.01); Neutrophils # (A) 4.94 X 10*3/uL (1.80-7.70); Neutrophils % (A) 66.3 %; Platelet Count 174 X 10*3/uL (140-440); RBC 3.03 X 10*6/uL (4.40-5.60); RDW 21.3 % (11.5-14.5); WBC 7.45 X 10*3/uL (4.50-10.00)
[2023-05-05 09:05] LABS: BUN/Creat Ratio 21.83 Ratio (12.00-20.00); Blood Urea Nitrogen 13.1 mg/dL (9.0-27.0); Calcium 8.7 mg/dL (8.7-10.3); Carbon Dioxide 21.7 mmol/L (21.6-31.8); Chloride 105 mmol/L (96-109); Glucose 116 mg/dL (70-110); Magnesium 1.5 mg/dL (1.5-2.4); Potassium 3.5 mmol/L (3.5-5.5); Sodium 137 mmol/L (135-145)
--- NOTE | 2023-05-05 09:24 | P.PN ---
Subjective Progress Note Date: 05/05/23 Principal diagnosis: suspected L knee prosthetic infection, tx from [facility] epidural abscess Patient seen and examined this morning. Patient is resting comfortably in bed. Patient reports he has been working with physical therapy and has been up to chair multiple times through the day yesterday. Surgical dressing to the lumbar spine is clean dry and intact. Patient states he continues to notice improvement of his bilateral lower extremities since the procedure. Continue to encourage patient to be up in chair for all meals. Patient is pending PICC line placement today for outpatient antibiotic therapy. He states that he is anticipating discharge to subacute rehab. Patient has remained afebrile, denies nausea/vomiting, or chest pain. No acute concerns at this time. Objective - Vital Signs Vital signs: Vital Signs Temp 99.0 F 05/05/23 07:14 Pulse 99 05/05/23 07:14 Resp 15 05/05/23 07:14 BP 144/73 05/05/23 07:14 Pulse Ox 96 05/05/23 07:14 FiO2 40 04/30/23 13:43 Intake & Output 05/04/23 05/05/23 05/05/23 18:59 06:59 18:59 Intake Total 450 Output Total 800 Balance -350 Intake: Intake, IV Titration 450 Amount Dextrose 5%-0.9% NaCl 1, 400 000 ml @ 50 mls/hr IV . Q20H MARIO Rx#:[id number] ceFAZolin 2 gm In Sodium 50 Chloride 0.9% 50 ml @ 100 mls/hr IVPB Q8HR MARIO Rx# :[id number] Output: Urine 800 Other: Voiding Method Indwelling Catheter Bedside Commode Urinal Diaper # Voids 2 # Bowel Movements 1 1 ABP, PAP, CO, CI - Last Documented Arterial Blood Pressure 146/54 - Exam Physical Examination General: The patient is awake and alert, in no acute distress Skin: Skin is warm and dry with no obvious rashes or lesions. Surgical dressing to the lumbar spine, dressing is CDI. Eye: Pupils are equal, round and reactive to light, extra-ocular movements are intact; there is normal conjunctiva bilaterally. Neck: The neck is supple, there is no tenderness and ROM intact. Cardiovascular: There is a regular rate and rhythm. No murmur, rub or gallop is appreciated. Mild edema to the bilateral ankles and feet Respiratory: Lungs are clear to auscultation, respirations are non-labored, breath sounds are equal. Gastrointestinal: Firm, distended, mild tenderness to palpation Back: There is no tenderness to palpation in the midline, paralumbar, parathoracic or buttocks region. There is no obvious deformity . Musculoskeletal: ROM limited secondary to pain and stiffness from surgical procedure. Muscle strength in all major muscle groups of bilateral upper extremities 4/5, left lower extremity 4-/5, right lower extremity 3+/5 Neurological: CN 2-12 intact. There are no obvious motor or sensory deficits. Movement and coordination equal and intact. Sensory exam to light touch intact C5-T1 and intact from L2-S1. Reflexes 2/4 in bilateral upper and lower extremities. Negative Hoffmans, babinski, and clonus signs. Psychiatric: Cooperative, appropriate mood & affect, normal judgment. - Labs CBC & Chem 7: 05/05/23 05:27 05/05/23 05:27 Labs: Abnormal Lab Results - Last 24 Hours (Table) 05/04/23 05/04/23 05/04/23 Range/Units 11:56 16:24 20:43 PT (10.0-12.5) sec INR (<1.2) APTT (22.0-30.0) sec POC Glucose (mg/dL) 129 H 121 H 137 H (70-110) mg/dL 05/05/23 05/05/23 Range/Units 05:27 06:31 PT 15.3 H (10.0-12.5) sec INR 1.5 H (<1.2) APTT 31.4 H (22.0-30.0) sec POC Glucose (mg/dL) 133 H (70-110) mg/dL Microbiology - Last 24 Hours (Table) 04/27/23 14:12 Gram Stain - Preliminary Knee - Left Body Fluid Culture - Preliminary 04/29/23 20:18 Anaerobic Culture - Final Back 04/29/23 20:18 Anaerobic Culture - Final Back 04/29/23 20:18 Anaerobic Culture - Final Back 04/29/23 20:18 Anaerobic Culture - Final Back 04/29/23 20:18 Anaerobic Culture - Final Back 04/29/23 20:18 Gram Stain - Final Back Tissue Culture - Final Assessment and Plan Assessment: Postop day 6: T11-L3 decompression and fusion with evacuation of epidural abscess Left knee effusion Possible left knee periprosthetic infection Bacteremia Low back pain Epidural abscess thoracic/lumbar spine Cirrhosis Multiple medical comorbidities Plan: -Appreciate engagement quality consultant and team management. -Activity: Ambulate QID, OOB all meals, up and about, limit lifting bending twisting to less than 5 lbs. Use walker or cane if needed for stability. -Daily PT/OT, increase ambulation strength and balance. -Brace when up and about, not needed in bed or chair -Pain control: Adequate at this time -Meds: reviewed -GI ppx: senna, Miralax -DC calhoun when up and about, bedside commode if needed -DVT PPX: Heparin -Hygiene: Shower today. Maintain dressing clean and dry. Meticulous cleaning after BMs away from the incision site -Encourage IS 10x/hr -Dispo: Clinically pending, patient is cleared from Orthopedic standpoint for discharge when medically stable. *I reviewed and discussed this case with my attending Dr. Narayanan, whom has reviewed this chart and films and is in agreement with assessment and plan of care as outlined above. I have personally seen and examined the patient, performed the documentation and the assessment and plan as written. Number of minutes spent on the visit: 20m.
[2023-05-05 11:31] LABS: Glucose,Whole Blood 159 mg/dL (70-110)
[2023-05-05] MEDS: DEXTROSE 5%-0.9% NACL 1,000 ML IV SCH (11:39)
--- NOTE | 2023-05-05 12:27 | P.PN ---
Subjective Progress Note Date: 05/05/23 Principal diagnosis: Reason for follow-up with Streptococcus bacteremia and concern for possible left knee septic arthritis Patient is a 67-year-old male with a past medical history significant for chronic alcoholism cirrhosis diabetes mellitus reflux in this patient who did have a left knee arthroplasty done by Dr. Bishop patient recently presented to [facility] about a week ago for evaluation of fever patient did have Streptococcus agalactiae bacteremia and the patient was noticed to have some swelling to the left knee s/p aspirate with a white count of 20,000 concerning for septic need for the patient was transferred to [facility] to be evaluated by his orthopedic surgeon.Patient did have an MRI of the lumbar spine suspicious for epidural abscess from T12-L2 and possible discitis L1-L2 MRI cervical spine no epidural abscess MRI thoracic spine tissues extension of the abscess to the T11 vertebra. Patient is status post laminectomy and drainage of the epidural abscess and implant of rods and screws life spine provide left cage, procedure completed on 04/29/2023. On today's evaluation that is 05/05/2023, the patient continues to be afebrile patient is breathing comfortably on room air, no need for supplemental oxygen, patient denies any chest pain or cough no nausea no vomiting and no diarrhea has been reported Patient white count 7.45, creatinine 0.6, OR cultures negative Objective - Vital Signs Vital signs: Vital Signs Temp 99.0 F 05/05/23 07:14 Pulse 99 05/05/23 07:14 Resp 15 05/05/23 07:14 BP 144/73 05/05/23 07:14 Pulse Ox 96 05/05/23 09:15 FiO2 40 04/30/23 13:43 Intake & Output 05/04/23 05/05/23 05/05/23 18:59 06:59 18:59 Intake Total 450 400 Output Total 800 Balance -350 400 Intake: Intake, IV Titration 450 400 Amount Dextrose 5%-0.9% NaCl 1, 400 400 000 ml @ 50 mls/hr IV . Q20H MARIO Rx#:[id number] ceFAZolin 2 gm In Sodium 50 Chloride 0.9% 50 ml @ 100 mls/hr IVPB Q8HR MARIO Rx# :[id number] Output: Urine 800 Other: Voiding Method Indwelling Catheter Bedside Commode Urinal Diaper # Voids 2 # Bowel Movements 1 1 ABP, PAP, CO, CI - Last Documented Arterial Blood Pressure 146/54 - Exam GENERAL DESCRIPTION: An elderly male lying in bed RESPIRATORY SYSTEM: Unlabored breathing , decreased breath sounds at bases HEART: S1 S2 regular rate and rhythm , ABDOMEN: Soft , no tenderness EXTREMITIES: No edema feet - Labs CBC & Chem 7: 05/05/23 05:27 05/05/23 05:27 Labs: Abnormal Lab Results - Last 24 Hours (Table) 05/04/23 05/04/23 05/05/23 Range/Units 16:24 20:43 05:27 RBC (4.40-5.60) X 10*6/uL Hgb (13.0-17.0) g/dL Hct (39.6-50.0) % MCHC (32.0-37.0) g/dL RDW (11.5-14.5) % Immature Gran # (0.00-0.04) X 10*3/uL Eosinophils # (0.04-0.35) X 10*3/uL PT 15.3 H (10.0-12.5) sec INR 1.5 H (<1.2) APTT 31.4 H (22.0-30.0) sec BUN/Creatinine Ratio (12.00-20.00) Ratio Glucose (70-110) mg/dL POC Glucose (mg/dL) 121 H 137 H (70-110) mg/dL 05/05/23 05/05/23 05/05/23 Range/Units 05:27 05:27 06:31 RBC 3.03 L (4.40-5.60) X 10*6/uL Hgb 8.4 L (13.0-17.0) g/dL Hct 26.4 L (39.6-50.0) % MCHC 31.8 L (32.0-37.0) g/dL RDW 21.3 H (11.5-14.5) % Immature Gran # 0.09 H (0.00-0.04) X 10*3/uL Eosinophils # 0.42 H (0.04-0.35) X 10*3/uL PT (10.0-12.5) sec INR (<1.2) APTT (22.0-30.0) sec BUN/Creatinine Ratio 21.83 H (12.00-20.00) Ratio Glucose 116 H (70-110) mg/dL POC Glucose (mg/dL) 133 H (70-110) mg/dL 05/05/23 Range/Units 11:16 RBC (4.40-5.60) X 10*6/uL Hgb (13.0-17.0) g/dL Hct (39.6-50.0) % MCHC (32.0-37.0) g/dL RDW (11.5-14.5) % Immature Gran # (0.00-0.04) X 10*3/uL Eosinophils # (0.04-0.35) X 10*3/uL PT (10.0-12.5) sec INR (<1.2) APTT (22.0-30.0) sec BUN/Creatinine Ratio (12.00-20.00) Ratio Glucose (70-110) mg/dL POC Glucose (mg/dL) 159 H (70-110) mg/dL Microbiology - Last 24 Hours (Table) 04/27/23 14:12 Gram Stain - Preliminary Knee - Left Body Fluid Culture - Preliminary 04/29/23 20:18 Anaerobic Culture - Final Back 04/29/23 20:18 Anaerobic Culture - Final Back 04/29/23 20:18 Anaerobic Culture - Final Back 04/29/23 20:18 Anaerobic Culture - Final Back 04/29/23 20:18 Anaerobic Culture - Final Back 04/29/23 20:18 Gram Stain - Final Back Tissue Culture - Final Assessment and Plan (1) Allergy to sulfa drugs Current Visit: Yes Status: Acute Code(s): Z88.2 - ALLERGY STATUS TO SULFONAMIDES SNOMED Code(s): 82734708 (2) Bacteremia due to Streptococcus Current Visit: Yes Status: Acute Code(s): R78.81 - BACTEREMIA; B95.5 - UNSP STREPTOCOCCUS THE CAUSE OF DISEASES [facility] SNOMED Code(s): 889595905942 (3) Septic arthritis of knee, left Current Visit: Yes Status: Acute Code(s): M00.9 - PYOGENIC ARTHRITIS, UNSPECIFIED SNOMED Code(s): 165809114 (4) Abscess in epidural space of lumbar spine Current Visit: Yes Status: Acute Code(s): G06.1 - INTRASPINAL ABSCESS AND GRANULOMA SNOMED Code(s): 058647979 (5) Discitis of lumbar region Current Visit: Yes Status: Acute Code(s): M46.46 - DISCITIS, UNSPECIFIED, LUMBAR REGION SNOMED Code(s): 726672484 Plan: 1patient presented to hospital with weakness fever did have Streptococcus agalactiae bacteremia in this patient who did have a significant swelling to the left knee along with the stiffness with aspiration of the left knee cell count more than 20,000 white cell high clinical suspicious for septic arthritis likely related to streptococci 2- -blood cultures repeat has been negative 3patient did have an MRI of the lumbar spine suspicious for epidural abscess from T12-L2 and possible discitis L1-L2, MRI of the cervical spine was negative for any epidural abscess MRI of the thoracic spine did show extension of the abscess to T11 vertebra, the patient status post drainage of the epidural abscess along with laminectomy and hardware placement on 04/29/2023, OR cultures so far negative 4-patient is afebrile and white count has normalized, 4-patient currently waiting for PICC line placement and outpatient antibiotic arrangement possible placement to shelter continue with the cefazolin question concern answered Dictation was produced using [employer] dictation software. please excuse any grammatical, word or spelling errors. Time with Patient: Less than 30
[2023-05-05] MEDS ORDERED: POTASSIUM CHLORIDE ER 20 MEQ TAB.ER PO STA (12:45)
--- NOTE | 2023-05-05 12:49 | P.PN ---
Subjective Progress Note Date: 05/05/23 CHIEF COMPLAINT: Abdominal distention HISTORY OF PRESENT ILLNESS: Patient denies any abdominal pain. He denies any nausea or vomiting. He did have bowel movements that were loose yesterday. He is having flatus. Patient had a low-grade temp of 100 last night. WBC 7.45 Hgb 8.4 platelets 174 sodium is 137 potassium 3.5 creatinine 0.6 magnesium 1.5 PHYSICAL EXAM: VITAL SIGNS: Reviewed. GENERAL: Well-developed in no acute distress. ABDOMEN: Slightly less distended. Nontender. Reducible umbilical hernia NEUROLOGIC: Awake and alert ASSESSMENT: 1. Abdominal distention 2. Ileus 3. History of liver cirrhosis with ascites 4. Septic left knee infection 5. T 11 through L3 decompression of the epidural abscess 6. Hypokalemia and hypomagnesemia PLAN: -Continue full liquid diet -Replace magnesium and potassium -No surgical intervention planned -Continue laxatives and stool softeners -Encouraged patient to increase activity level Physician Duco Polisher note has been reviewed by physician. Signing provider agrees with the documented findings, assessment, and plan of care. Objective - Vital Signs Vital signs: Vital Signs Temp 99.0 F 05/05/23 07:14 Pulse 99 05/05/23 07:14 Resp 15 05/05/23 07:14 BP 144/73 05/05/23 07:14 Pulse Ox 96 05/05/23 09:15 FiO2 40 04/30/23 13:43 Intake & Output 05/04/23 05/05/23 05/05/23 18:59 06:59 18:59 Intake Total 450 400 Output Total 800 Balance -350 400 Intake: Intake, IV Titration 450 400 Amount Dextrose 5%-0.9% NaCl 1, 400 400 000 ml @ 50 mls/hr IV . Q20H MARIO Rx#:[id number] ceFAZolin 2 gm In Sodium 50 Chloride 0.9% 50 ml @ 100 mls/hr IVPB Q8HR MARIO Rx# :[id number] Output: Urine 800 Other: Voiding Method Indwelling Catheter Bedside Commode Urinal Diaper # Voids 2 # Bowel Movements 1 1 ABP, PAP, CO, CI - Last Documented Arterial Blood Pressure 146/54 - Labs CBC & Chem 7: 05/05/23 05:27 05/05/23 05:27 Labs: Abnormal Lab Results - Last 24 Hours (Table) 05/04/23 05/04/23 05/05/23 Range/Units 16:24 20:43 05:27 RBC (4.40-5.60) X 10*6/uL Hgb (13.0-17.0) g/dL Hct (39.6-50.0) % MCHC (32.0-37.0) g/dL RDW (11.5-14.5) % Immature Gran # (0.00-0.04) X 10*3/uL Eosinophils # (0.04-0.35) X 10*3/uL PT 15.3 H (10.0-12.5) sec INR 1.5 H (<1.2) APTT 31.4 H (22.0-30.0) sec BUN/Creatinine Ratio (12.00-20.00) Ratio Glucose (70-110) mg/dL POC Glucose (mg/dL) 121 H 137 H (70-110) mg/dL 05/05/23 05/05/23 05/05/23 Range/Units 05:27 05:27 06:31 RBC 3.03 L (4.40-5.60) X 10*6/uL Hgb 8.4 L (13.0-17.0) g/dL Hct 26.4 L (39.6-50.0) % MCHC 31.8 L (32.0-37.0) g/dL RDW 21.3 H (11.5-14.5) % Immature Gran # 0.09 H (0.00-0.04) X 10*3/uL Eosinophils # 0.42 H (0.04-0.35) X 10*3/uL PT (10.0-12.5) sec INR (<1.2) APTT (22.0-30.0) sec BUN/Creatinine Ratio 21.83 H (12.00-20.00) Ratio Glucose 116 H (70-110) mg/dL POC Glucose (mg/dL) 133 H (70-110) mg/dL 05/05/23 Range/Units 11:16 RBC (4.40-5.60) X 10*6/uL Hgb (13.0-17.0) g/dL Hct (39.6-50.0) % MCHC (32.0-37.0) g/dL RDW (11.5-14.5) % Immature Gran # (0.00-0.04) X 10*3/uL Eosinophils # (0.04-0.35) X 10*3/uL PT (10.0-12.5) sec INR (<1.2) APTT (22.0-30.0) sec BUN/Creatinine Ratio (12.00-20.00) Ratio Glucose (70-110) mg/dL POC Glucose (mg/dL) 159 H (70-110) mg/dL Microbiology - Last 24 Hours (Table) 04/27/23 14:12 Gram Stain - Preliminary Knee - Left Body Fluid Culture - Preliminary 04/29/23 20:18 Anaerobic Culture - Final Back 04/29/23 20:18 Anaerobic Culture - Final Back 04/29/23 20:18 Anaerobic Culture - Final Back 04/29/23 20:18 Anaerobic Culture - Final Back 04/29/23 20:18 Anaerobic Culture - Final Back
[2023-05-05] MEDS: MAGNESIUM HYDROXIDE 2,400 MG/30 ML CUP PO SCH (12:56)
[2023-05-05] MEDS: MAGNESIUM SULFATE-D5W PMX 1 GM in DEXTROSE/WATER 1 100ML.BAG IVPB SCH ×2 (13:24→15:27)
--- NOTE | 2023-05-05 14:42 | P.PN ---
Subjective Progress Note Date: 05/05/23 05/03/2023, patient is postop day #4 following T11-L3 decompression of an epidural abscess. The patient was on a mechanical ventilator and the patient was extubated on 04/30/2023 and the patient is currently on room air oxygen. The patient also has multiple other comorbidities. The patient had streptococcal septicemia related to an infected septic left knee. The patient has liver cirrhosis, diabetes mellitus, hypertension hyperlipidemia and gout and previous history of chronic alcohol use. Currently hemodynamically stable. The patient is currently on room air oxygen and not having any major respiratory difficulties. The blood cultures. The patient is currently on IV cefazolin. The left knee cultures have revealed no growth. Overall fluid was also negative. Blood culture was also negative. During the course of her illness, the patient received a total of 2 units of packed RBC and hemoglobin is stable for now. The patient continues to have abdominal distention secondary to ascites and liver cirrhosis. A consultation was placed for interventional radiology to undergo a paracentesis. He continues to have issues related to pain. Unable to ambulate. Physical therapy has been able to put him on a chair for brief period of time. Using incentive spirometer. On today's evaluation of 05/04/2023, the patient is postop day #5. The patient doing well and he is able to sit up on a chair. He remains on IV cefazolin. No significant ascites was noted. The patient was given laxatives and the patient had a large bowel movement. Abdomen is less distended on today's evaluation. He continues to receive Lasix 40 mg IV every 12 hours. Rest of the medications remain unchanged.No altered mentation. No chest pain. He is using the incentive spirometer. On 05/05/2023, the patient is postop day #6. The patient doing well. No specific complaints. The patient will hopefully obtain a PICC line for IV antibiotics and the patient is current on IV cefazolin. Labs are all stable. The white cell count of 7.5, hemoglobin was 8.4, B is a 30 with a creatinine of 0.6 and a sodium levels of 137. He does have some coagulopathy related to liver cirrhosis. INR is at 1.5 with a PT of 15.3. The patient denies having any abdominal pain. No nausea or vomiting. He is having bowel movements. He had a low-grade temperature. He remains on antibiotics. No other significant issues overnight. The patient is taking full liquid diet for nodule surgery is also on the case. Objective - Vital Signs Vital signs: Vital Signs Temp 99.0 F 05/05/23 07:14 Pulse 99 05/05/23 07:14 Resp 15 05/05/23 07:14 BP 144/73 05/05/23 07:14 Pulse Ox 96 05/05/23 09:15 FiO2 40 04/30/23 13:43 Intake & Output 05/04/23 05/05/23 05/05/23 18:59 06:59 18:59 Intake Total 450 400 Output Total 800 Balance -350 400 Intake: Intake, IV Titration 450 400 Amount Dextrose 5%-0.9% NaCl 1, 400 400 000 ml @ 50 mls/hr IV . Q20H MARIO Rx#:[id number] ceFAZolin 2 gm In Sodium 50 Chloride 0.9% 50 ml @ 100 mls/hr IVPB Q8HR MARIO Rx# :[id number] Output: Urine 800 Other: Voiding Method Indwelling Catheter Bedside Commode Urinal Diaper # Voids 2 # Bowel Movements 1 1 ABP, PAP, CO, CI - Last Documented Arterial Blood Pressure 146/54 - Exam GENERAL EXAM: Alert, pleasant 67-year-old male, on room air, fairly comfortable in no apparent distress. HEAD: Normocephalic. EYES: Normal reaction of pupils, equal size. NOSE: Clear with pink turbinates. THROAT: No erythema or exudates. NECK: No masses, no JVD. CHEST: No chest wall deformity. LUNGS: Equal air entry with no crackles, wheeze, rhonchi or dullness. CVS: S1 and S2 normal with no audible murmur, regular rhythm. ABDOMEN: Distended No hepatosplenomegaly, normal bowel sounds, no guarding or rigidity. SPINE: Surgical dressing dry and intact. Drain remains in place. SKIN: No rashes CENTRAL NERVOUS SYSTEM: No focal deficits, tone is normal in all 4 extremities. EXTREMITIES: There is 1-2+ peripheral edema. No clubbing, no cyanosis. Peripheral pulses are intact. - Labs CBC & Chem 7: 05/05/23 05:27 05/05/23 05:27 Labs: Abnormal Lab Results - Last 24 Hours (Table) 01/05/04/23 05/04/23 Range/Units 11:56 16:24 20:43 RBC (4.40-5.60) X 10*6/uL Hgb (13.0-17.0) g/dL Hct (39.6-50.0) % MCHC (32.0-37.0) g/dL RDW (11.5-14.5) % Immature Gran # (0.00-0.04) X 10*3/uL Eosinophils # (0.04-0.35) X 10*3/uL PT (10.0-12.5) sec INR (<1.2) APTT (22.0-30.0) sec BUN/Creatinine Ratio (12.00-20.00) Ratio Glucose (70-110) mg/dL POC Glucose (mg/dL) 129 H 121 H 137 H (70-110) mg/dL 05/05/23 05/05/23 05/05/23 Range/Units 05:27 05:27 05:27 RBC 3.03 L (4.40-5.60) X 10*6/uL Hgb 8.4 L (13.0-17.0) g/dL Hct 26.4 L (39.6-50.0) % MCHC 31.8 L (32.0-37.0) g/dL RDW 21.3 H (11.5-14.5) % Immature Gran # 0.09 H (0.00-0.04) X 10*3/uL Eosinophils # 0.42 H (0.04-0.35) X 10*3/uL PT 15.3 H (10.0-12.5) sec INR 1.5 H (<1.2) APTT 31.4 H (22.0-30.0) sec BUN/Creatinine Ratio 21.83 H (12.00-20.00) Ratio Glucose 116 H (70-110) mg/dL POC Glucose (mg/dL) (70-110) mg/dL 05/05/23 Range/Units 06:31 RBC (4.40-5.60) X 10*6/uL Hgb (13.0-17.0) g/dL Hct (39.6-50.0) % MCHC (32.0-37.0) g/dL RDW (11.5-14.5) % Immature Gran # (0.00-0.04) X 10*3/uL Eosinophils # (0.04-0.35) X 10*3/uL PT (10.0-12.5) sec INR (<1.2) APTT (22.0-30.0) sec BUN/Creatinine Ratio (12.00-20.00) Ratio Glucose (70-110) mg/dL POC Glucose (mg/dL) 133 H (70-110) mg/dL Microbiology - Last 24 Hours (Table) 04/27/23 14:12 Gram Stain - Preliminary Knee - Left Body Fluid Culture - Preliminary 04/29/23 20:18 Anaerobic Culture - Final Back 04/29/23 20:18 Anaerobic Culture - Final Back 04/29/23 20:18 Anaerobic Culture - Final Back 04/29/23 20:18 Anaerobic Culture - Final Back 04/29/23 20:18 Anaerobic Culture - Final Back 04/29/23 20:18 Gram Stain - Final Back Tissue Culture - Final Assessment and Plan Plan: Assessment Postop day # 6 following T11-L3 decompression of the epidural abscess. Patient is currently on IV cefazolin. Sepsis source thought to be infection of the left knee prosthesis status post arthrocentesis of the left knee Septic left knee infection Streptococcal agalactiae, bacteremia Liver cirrhosis with ascites and history of esophageal varices Abdominal distention/ascites secondary to liver cirrhosis, and the patient was not found to have significant ascites and the patient was given laxatives with improvement in his abdominal distention, he may have also a component of ileus in addition. Diabetes mellitus type 2 Previous history of left total knee arthroplasty Hypertension Hyperlipidemia Gout Alcoholism Plan Pulmonary status is stable. Continue using incentive spirometer Continue IV cefazolin Obtain a PICC line Continue IV Lasix 40 milligrams every 12 hours and stop the oral diuretics for now No significant ascites for paracentesis and the patient was given laxatives with adequate bowel movement and improvement in his abdominal distention. Gradually advance diet as tolerated Blood work in the electrolytes are all stable Encourage use of incentive spirometer Patient is currently on room air oxygen Overall rest or status is stable.
--- NOTE | 2023-05-05 14:56 | P.PN ---
Subjective Progress Note Date: 05/05/23 Principal diagnosis: Ascites, liver disease This is a 67-year-old white male who was transferred from [facility] for her concern for possible septic knee days ago. He has a history of alcoholic cirrhosis of the liver and has followed with gastroenterology last se en in November of this year. The patient is a very poor historian and most of this history is obtained from chart. He has a history of ascites and paracentesis and this maintained on Lasix 20 mg twice a day and Aldactone 50 mg twice a day. Has a history of GI bleeding and esophageal varices. Last EGD and colonoscopy in January 2023. Upper endoscopy revealed large mid and distal esophageal varices with red without case status post variceal ligation and mild to moderate portal hypertensive gastropathy. Colonoscopy revealed 5 mm ascending colon polyp and transverse colon polyp status post polypectomy and grade 2 internal hemorrhoids. On as part of his workup at [facility] he had an ultrasound of the abdomen for abdominal distention and was noted to have ascites. He underwent a paracentesis on 04/26/2023 with 1.36 L removed. During this stay he underwent a lumbar spine MRI that was concerning for epidural abscess. He underwent T11 to L3 decompression and fusion with evacu ation of epidural abscess. Apparently during this hospital stay he also had constipation and complaints of abdominal pain. Gen. surgery was consulted by the medical team for constipation. He recently had undergone colonoscopy again without any acute findings he was started on lactulose 30 g daily. He had 3 bowel movements reported today. He had an abdominal ultrasound that shows mild abdominal ascites. Nodular appearing liver suggesting underlying cirrhosis. 05/04/2023 Patient seen and examined today as a follow-up. He seems more alert and answering questions more appropriately. He denies any abdominal pain, nausea or vomiting. States he has not had a bowel movement yet today. Ammonia level was less than 9. 1724 Patient seen and examined today as a follow-up. No acute changes. Patient denies any abdominal pain, nausea or vomiting. States he had a bowel movement yesterday. Objective - Vital Signs Vital signs: Vital Signs Temp 99.0 F 05/05/23 07:14 Pulse 99 05/05/23 07:14 Resp 15 05/05/23 07:14 BP 144/73 05/05/23 07:14 Pulse Ox 96 05/05/23 07:14 FiO2 40 04/30/23 13:43 Intake & Output 05/04/23 05/05/23 05/05/23 18:59 06:59 18:59 Intake Total 450 Output Total 800 Balance -350 Intake: Intake, IV Titration 450 Amount Dextrose 5%-0.9% NaCl 1, 400 000 ml @ 50 mls/hr IV . Q20H [facility] Rx#:[id number] ceFAZolin 2 gm In Sodium 50 Chloride 0.9% 50 ml @ 100 mls/hr IVPB Q8HR [facility] Rx# :[id number] Output: Urine 800 Other: Voiding Method Indwelling Catheter Bedside Commode Urinal Diaper # Voids 2 # Bowel Movements 1 1 ABP, PAP, CO, CI - Last Documented Arterial Blood Pressure 146/54 - Exam General appearance: The patient is alert, oriented, appears in no acute distress. HET: Head is normocephalic and atraumatic. Conjunctiva pink. Sclera anicteric. Neck: Supple without lymphadenopathy. Abdomen: Soft, nontender, distended, tympanic. No ascites. No guarding or rigidity. Extremities: Normal skin color and turgor. No pedal edema Skin: No rashes, no jaundice Neurological: No focal deficits. Alert and oriented. - Labs CBC & Chem 7: 05/05/23 05:27 05/05/23 05:27 Labs: Abnormal Lab Results - Last 24 Hours (Table) 05/04/23 05/04/23 05/04/23 Range/Units 11:56 16:24 20:43 PT (10.0-12.5) sec INR (<1.2) APTT (22.0-30.0) sec POC Glucose (mg/dL) 129 H 121 H 137 H (70-110) mg/dL 05/05/23 05/05/23 Range/Units 05:27 06:31 PT 15.3 H (10.0-12.5) sec INR 1.5 H (<1.2) APTT 31.4 H (22.0-30.0) sec POC Glucose (mg/dL) 133 H (70-110) mg/dL Microbiology - Last 24 Hours (Table) 04/27/23 14:12 Gram Stain - Preliminary Knee - Left Body Fluid Culture - Preliminary 04/29/23 20:18 Anaerobic Culture - Final Back 04/29/23 20:18 Anaerobic Culture - Final Back 04/29/23 20:18 Anaerobic Culture - Final Back 04/29/23 20:18 Anaerobic Culture - Final Back 04/29/23 20:18 Anaerobic Culture - Final Back 04/29/23 20:18 Gram Stain - Final Back Tissue Culture - Final Assessment and Plan (1) Alcoholic cirrhosis of liver Narrative/Plan: 67-year-old with history of ongoing alcohol abuse follows with gastroenterology for colic cirrhosis of liver with history of esophageal varices, ascites who is admitted to the hospital for bacteremia and found to have a epidural abscess. During a the admission he was noted to have distended abdomen and underwent paracentesis. Home medications had included Lasix 20 mg twice a day and Aldactone 50 mg twice a day according to notes from last GI visit in November 2022. The patient is a poor historian at this time. Even though he is alert and oriented 3 he was unable to give much history initially. Will obtain ammonia level. LFTs are all within normal limits with elevation of alkaline phosphatase but again patient recently had a tone and concern for septic knee as well as epidural abscess. Abdomen tympanic without any significant fluid at this time. Continue with Lasix as ordered, will increase Aldactone to 50 mg twice a day. Current Visit: Yes Status: Acute Code(s): K70.30 - ALCOHOLIC CIRRHOSIS OF LIVER WITHOUT ASCITES SNOMED Code(s): 144769951 (2) Ascites Current Visit: Yes Status: Acute Code(s): R18.8 - OTHER ASCITES SNOMED Code(s): 408263353 Plan: 1. Continue symptomatic and supportive care 2. Continue lactulose as ordered for now 3. Increase Aldactone to 50 mg twice a day 4. Continue alcohol abstinence 4. No need for paracentesis, patient with small amount of fluid noted on ultrasound and tympanic abdomen 5. No further workup by gastroenterology. Patient is cleared for discharge. Patient can follow-up in the office as previously scheduled. Thank you for this consultation, we will sign off at this time. Dr. Nicolle Bangura I agree with the dictator's note, documented as a scribe by Chasidy Jeffries.
[2023-05-05 16:50] LABS: Glucose,Whole Blood 128 mg/dL (70-110)
[2023-05-05] MEDS: COLESEVELAM 625 MG TAB PO SCH (17:15)
[2023-05-05 22:10] LABS: Glucose,Whole Blood 124 mg/dL (70-110)
[2023-05-06 06:36] LABS: Glucose,Whole Blood 123 mg/dL (70-110)
[2023-05-06] MEDS: INSULIN ASPART (NovoLOG) 100 UNIT/ML VIAL SQ SCH ×4 (06:41→20:41)
--- NOTE | 2023-05-06 07:00 | P.PN ---
Subjective Progress Note Date: 05/05/23 This is a 67-year-old male patient of Dr. Loli Campbell, patient has medical history of abdominal ascites and liver cirrhosis, chronic alcoholism, diabetes mellitus, hemorrhoids, gastroesophageal reflux disease. Patient follows with dr rocco turcios underwent upper and lower endoscopy in January of 2023 has history of esophageal varices which underwent banding in Jan as well. Has a history of left lower extremity total knee arthroplasty done a year ago, initially presented to [facility] with left lower extremity edema with concern for infected prosthetic of the left knee. He presented to [facility] with fevers progressive weakness and back pain. States fever was as high as 104. He was also anemic hemoglobin 6.5 requiring 2 unit of PRBC. Patient was found to have strep agalactaie bacteremia with features of sepsis over at [facility]. He was treated with IV ceftriaxone 2 grams. Patient also with recent influenza infection and hypoxia at [facility]. He had a venous doppler of the left leg at [facility] negative for acute DVT. He underwent arthrocentesis of the left knee joint effusion show ing 20,000 WBCs and suspicious for infected prosthesis was recommended to transfer to [facility] for further evaluation by Dr Bishop. Yesterday before transfer he underwent work up for abdominal ascites which he has undergo paracentesis in the past, he had an abdominal ultrasound showing significant amount of intraabdominal ascites. IR consulted. He is admitted to this hospital with consults placed to [place] and infectious disease. 04/24/2023 Patient evaluated today sitting up in bed. He was seen in consultation by ID who has changed antibiotics to IV cefazolin from ceftriaxone with plans to repeat blood culture. Underwent paracentesis 1.5 L off. Sodium 135, potassium 3.3, BUN 8, creatinine 0.50, magnesium 1.8, CRP 6.2. Orthopedics not recommending any surgical intervention at this time. 04/25/2023 Patient is evaluated today resting in bed. pts is at the bedside and plan of care was discussed thoroughly. Patient remains on IV Cefazolin with repeat blood cultures pending and negative so far. Infectious disease is following this case. He is status post paracentesis. Again orthopedics not recommending any surgical intervention for the right knee septic arthritis. 04/26/2023 Patient is still complaining from left knee swelling, patient states is better, pain controlled no erythema. Orthopedic surgery planning for surgery for infected prosthesis onto stages first one on 04/29 MRI of the lumbar spine is ordered to rule out infection Cardiology team preoperative evaluation is ordered Patient remains on IV cefazolin Repeat blood culture/6 still show no growth ID team on the case 04/27/2023 Patient with minimal back pain and his left knee with no significant pain is still warm and swollen with no redness. Initially orthopedic team are planning for surgical debridement of his left knee. However MRI of the lumbar spine showing epidural abscess of the distal thoracic and irrigated proximal lumbar vertebrae. Orthopedic team still on the case with follow the patient and needs surgery was held and replaced to do lumbar surgery with ( T11-L3 decompression and fusion along with epidural abscess/phlegmon evacuation for 04/29/2023.) Preoperative cardiac evaluation is requested Chest pain or dyspnea No change in urine or bowel habits. No fever. Monitor blood pressure Continue with cefazolin 04/28. Patient seen and examined. Still has left knee pain. 04/29/2023 Patient is seen this am and awaiting T11-L3 decompression and fusion along with epidural abscess/phlegmon evacuation some time today with orthopedics. ID following and patient is continued on IV antibiotics and awaiting surgery and finalized cultures. Will await and discuss with ortho regarding left knee as patient continues to report left knee swelling and pain. Patient is afebrile with no reports of chest pain or shortness of breath. Patient hemoglobin is 9 today and per ortho patient is to receive 2 units of blood for surgery. Will await surgical report 04/30/2023 Patient is seen in follow-up this morning continues on mechanical ventilation and FiO2 is currently 60% with the PEEP of 5. Patient continues on low-dose Levophed 0.01 and is status post T11-L3 decompression. Per nursing staff patient is slowly being weaned off Levophed and working on sedation trials for weaning off mechanical ventilation. Patient continues on IV antibiotics with infectious disease following. Deep tissue cultures obtained and pending at this time. Patient is afebrile. Patient has indwelling Truong catheter with minimal output noted and will add lactated Ringer 700 mL per hour and follow-up with repeat labs. 05/02/2023 Patients with minimal back pain and no knee pain, no significant other complaint He has poor appetite and constipated and started on lactulose today He has some evidence of fluid overload with some ascites and minimal bilateral pleural effusion seen on CAT scan of the abdomen and pelvis today however there is no other acute process, mild ileus is suspected. He remains on cefazolin for his Streptococcus agalactiae bacteremia LAD Lasix 3 days 40 mg on the top of his 20 mg by mouth twice daily Also worked his fluids to D5 normal saline at 50 mL/h and Versed of 100 mL per hour 05/03/2023 Patient mentation. He is awake , not eating since surgery. Has mild stomach ache, abdomen is mildly distended. Abdomen ultrasound ordered and GI team consulted. Patient had 3 bowel movements yesterday for the first time at their worst mushy with no blood His been bothered by his Truong catheter but no suprapubic pain or tenderness. Remains on antibiotic cefazolin and diuretics IV Lasix and Aldactone 05/04/2023 Patient is seen today in follow up currently sitting up in the chair with family at the bedside. Pattient is status post t11-L3 decompression. Patient is continued on IV lasix and awaiting am labs. Per nursing staff he was not tolerating much diet and having distention and diet was decreased to full liquids. Patient was able to have a bowel movement. Patient is extremely weak and has not been up and moving much. Patient with significant weakness, will need ecf on discharge. Patient is afebrile with no reports of chest pain or shortness of breath. Patient is being followed by GI as well for the ascites. Patient reports he had a paracentesis last week some time. Poor historian. 05/05/2023 Patient is seen in follow-up this morning were awake and alert with no reports of acute issues overnight. Multiple medical consultations following and patient is scheduled to receive a PICC line today. Patient will continue on IV cefazolin per ID recommendations and the outpatient setting for 6 weeks. Patient follow-up outpatient with orthopedics. General surgery following as well with abdominal distention and ileus although patient reports is passing gas and did have bowel movements. Patient is continued on full liquids at this time and will continue for now. Patient with abdominal distention will evaluate for any ascites is patient did have a paracentesis on admission. Patient is currently afebrile with no reports of chest pain or shortness of breath. Patient with significant weakness will be going to ECF on discharge. Case georgina philip following working in discharge planning. Review of systems: Constitutional: No reports of fatigue, fever, or chills Cardiovascular: No reports of chest pain or palpitations Respiratory: No reports of shortness of breath or cough GI: No reports of nausea, vomiting, or diarrhea, reports having bowel movement yesterday : No reports of dysuria or retention Neurovascular: reports of generalized weakness and some back pain All medications have been reviewed PHYSICAL EXAMINATION: GENERAL: The patient is a 67-year-old male who is awake, alert and oriented x2- 3. Well developed, well nourished. Obese HEENT: Pupils are round and equally reacting to light. EOMI. No scleral icterus. No conjunctival pallor. Normocephalic, atraumatic. No pharyngeal erythema. No thyromegaly. CARDIOVASCULAR: S1 and S2 muffled PULMONARY: Chest is clear to auscultation, no wheezing or crackles. ABDOMEN: Soft, nontender, appears slightly more distended, normoactive bowel sounds. No palpable organomegaly. MUSCULOSKELETAL: No joint swelling or deformity. Left knee with no obvious swelling or erythema noted EXTREMITIES: No cyanosis, clubbing, or pedal edema. NEUROLOGICAL: no reported numbness or tingling of extremities. diffusely weak SKIN: No rashes. Assessment: Patient is postop T11-L3 decompression with epidural abscess evacuation Strep Algalactaie bacteremia with features of sepsis, ongoing likely due to epidural abscess as well as concerns for left knee septic joint Concerns for Left knee septic joint, does not appear septic. Will need outpatient follow-up History of esophageal varices with banding in january Hypokalemia, improved Hx of cirrhosis, abdominal ascites ultrasound showing significant ascites s/p paracentesis with 1.5 L off and continued on aldactone and lasix BID. Hx of GERD Diabetes Mellitus type 2 hgb A1C 6.9 continue on accuchecks achs and sliding scale insulin. History of left TKA Hypertension continues on losartan BID and atenolol. Hemorrhoids Chronic alcohol use monitor for alcohol withdrawal Hx of gout continue on allopurinol GI prophylaxis DVT prophylaxis Full code Plan: Patient is status post T11-L3 decompression and fusion along with epidural abscess/phlegmon evacuation Patient is currently sitting up in the chair and per nursing staff has not been up and moving very much needs encouragement with increased activity Continue to monitor urinary output as patient has indwelling Truong catheter GI following with ascites and status post 1.5 L from paracentesis. Patient appears slightly more distended today and will obtain abdominal ultrasound to assess for ascites Patient reports having bowel movements yesterday. Gen. surgery following with concerns of possible ileus and continued on full liquids for now with bowel regimen with no plans of surgical intervention Patient is scheduled for PICC line today with infectious disease following and patient will continue on IV cefazolin for 6 weeks in the outpatient setting Recommend repeat labs in the a.m. and replace electrolytes per protocol Case management following working in discharge planning is patient will be going to ECF Possible discharge in the next 24-48 hours The impression and plan of care has been dictated by Cortney Pierce, Nurse Practitioner as directed. Dr. Danuta MD I have performed a history and examination and MDM of this patient, discussed the same with the dictator, and agree with the dictator's assessment and plan as written ,documented as a scribe. Based on total visit time, I have performed more than 50% of the visit. Objective - Vital Signs Vital signs: Vital Signs Temp 99.3 F 05/06/23 01:25 Pulse 100 05/06/23 01:25 Resp 18 05/06/23 01:25 BP 169/91 05/06/23 01:25 Pulse Ox 94 L 05/06/23 01:25 FiO2 40 04/30/23 13:43 Intake & Output 05/05/23 05/05/23 05/06/23 06:59 18:59 06:59 Intake Total 400 Output Total 900 850 Balance -500 -850 Intake: Intake, IV Titration 400 Amount Dextrose 5%-0.9% NaCl 1, 400 000 ml @ 50 mls/hr IV . Q20H [facility] Rx#:[id number] Output: Urine 900 850 Other: Voiding Method Bedside Commode Bedside Commode Urinal Urinal Diaper Diaper # Voids 2 # Bowel Movements 1 ABP, PAP, CO, CI - Last Documented Arterial Blood Pressure 146/54 - Labs CBC & Chem 7: 05/05/23 05:27 05/05/23 05:27 Labs: Abnormal Lab Results - Last 24 Hours (Table) 05/05/23 05/05/23 05/05/23 Range/Units 05:27 05:27 05:27 RBC 3.03 L (4.40-5.60) X 10*6/uL Hgb 8.4 L (13.0-17.0) g/dL Hct 26.4 L (39.6-50.0) % MCHC 31.8 L (32.0-37.0) g/dL RDW 21.3 H (11.5-14.5) % Immature Gran # 0.09 H (0.00-0.04) X 10*3/uL Eosinophils # 0.42 H (0.04-0.35) X 10*3/uL PT 15.3 H (10.0-12.5) sec INR 1.5 H (<1.2) APTT 31.4 H (22.0-30.0) sec BUN/Creatinine Ratio 21.83 H (12.00-20.00) Ratio Glucose 116 H (70-110) mg/dL POC Glucose (mg/dL) (70-110) mg/dL 05/05/23 05/05/23 05/05/23 Range/Units 11:16 16:45 22:09 RBC (4.40-5.60) X 10*6/uL Hgb (13.0-17.0) g/dL Hct (39.6-50.0) % MCHC (32.0-37.0) g/dL RDW (11.5-14.5) % Immature Gran # (0.00-0.04) X 10*3/uL Eosinophils # (0.04-0.35) X 10*3/uL PT (10.0-12.5) sec INR (<1.2) APTT (22.0-30.0) sec BUN/Creatinine Ratio (12.00-20.00) Ratio Glucose (70-110) mg/dL POC Glucose (mg/dL) 159 H 128 H 124 H (70-110) mg/dL 05/06/23 Range/Units 06:35 RBC (4.40-5.60) X 10*6/uL Hgb (13.0-17.0) g/dL Hct (39.6-50.0) % MCHC (32.0-37.0) g/dL RDW (11.5-14.5) % Immature Gran # (0.00-0.04) X 10*3/uL Eosinophils # (0.04-0.35) X 10*3/uL PT (10.0-12.5) sec INR (<1.2) APTT (22.0-30.0) sec BUN/Creatinine Ratio (12.00-20.00) Ratio Glucose (70-110) mg/dL POC Glucose (mg/dL) 123 H (70-110) mg/dL
[2023-05-06] MEDS: HEPARIN SODIUM,PORCINE 5,000 UNIT/ML 1 ML VIAL SQ SCH ×2 (07:50→20:54)
[2023-05-06] MEDS: ASPIRIN 81 MG PO SCH (07:50)
[2023-05-06] MEDS: FUROSEMIDE 10 MG/ML 4 ML VIAL IV SCH ×2 (08:16→20:56)
[2023-05-06] MEDS: DEXTROSE 5%-0.9% NACL 1,000 ML IV SCH (08:17)
[2023-05-06] MEDS: MAGNESIUM HYDROXIDE 2,400 MG/30 ML CUP PO SCH (08:17)
[2023-05-06] MEDS: LACTULOSE 20 GM/30 ML CUP PO SCH ×2 (08:45→20:55)
[2023-05-06] MEDS: SENNOSIDES-DOCUSATE SODIUM 1 EACH TAB PO SCH (08:46)
[2023-05-06] MEDS: LOSARTAN 50 MG TAB PO SCH ×2 (08:46→20:55)
[2023-05-06] MEDS: ASCORBIC ACID 500 MG TAB PO SCH (08:46)
[2023-05-06] MEDS: SPIRONOLACTONE 25 MG TAB PO SCH ×2 (08:46→20:55)
[2023-05-06] MEDS: allopurinoL 300 MG TAB PO SCH (08:46)
[2023-05-06] MEDS: PANTOPRAZOLE 40 MG TABLET PO SCH (08:46)
[2023-05-06] MEDS: atenoloL 50 MG TAB PO SCH (08:46)
[2023-05-06] MEDS: MULTIVITAMINS, THERA 1 EACH TAB PO SCH (08:46)
[2023-05-06] MEDS: CHOLECALCIFEROL 25 MCG (1000 IU) TABLET PO SCH (08:46)
--- NOTE | 2023-05-06 09:19 | US ---
EXAMINATION TYPE: US abdomen limited DATE OF EXAM: 05/06/2023 COMPARISON: 05/03/2023 CLINICAL INDICATION: Male, 67 years old with history of assess for ascites, abdominal distention; Hx para x 1 month ago per patient. All four quadrants scanned with ascites visualized. IMPRESSION: Mild abdominal ascites. More moderate within the right upper quadrant. Underlying cirrhot ic morphology of the liver.
[2023-05-06 10:50] LABS: INR 1.8 (<1.2); Prothrombin Time 18.4 sec (10.0-12.5)
[2023-05-06 11:22] LABS: Glucose,Whole Blood 145 mg/dL (70-110)
[2023-05-06 11:36] LABS: BUN/Creat Ratio 16.83 Ratio (12.00-20.00); Blood Urea Nitrogen 10.1 mg/dL (9.0-27.0); Calcium 8.6 mg/dL (8.7-10.3); Carbon Dioxide 21.4 mmol/L (21.6-31.8); Chloride 104 mmol/L (96-109); Glucose 122 mg/dL (70-110); Magnesium 1.5 mg/dL (1.5-2.4); Potassium 3.3 mmol/L (3.5-5.5); Sodium 135 mmol/L (135-145)
--- NOTE | 2023-05-06 11:43 | P.PN ---
Subjective Progress Note Date: 05/06/23 CHIEF COMPLAINT: Abdominal distention HISTORY OF PRESENT ILLNESS: Patient denies any abdominal pain. He denies any nausea or vomiting. He had liquidy BM yesterday. He is having flatus. Patient had a low-grade temp of 100 last night. Scheduled for Picc line today. Low- grade temp 100.4 last night. Labs pending PHYSICAL EXAM: VITAL SIGNS: Reviewed. GENERAL: Well-developed in no acute distress. ABDOMEN: distended. Nontender. Reducible umbilical hernia NEUROLOGIC: Awake and alert ASSESSMENT: 1. Abdominal distention 2. Ileus 3. History of liver cirrhosis with ascites 4. Septic left knee infection 5. T 11 through L3 decompression of the epidural abscess 6. Hypokalemia and hypomagnesemia. Repeat labs pending PLAN: -Continue full liquid diet and advance as tolerated -No surgical intervention planned -Continue laxatives and stool softeners at discharge -Encouraged patient to increase activity level -Patient can be discharged from surgical standpoint Physician Molding Room Supervisor note has been reviewed by physician. Signing provider agrees with the documented findings, assessment, and plan of care. Objective - Vital Signs Vital signs: Vital Signs Temp 99.6 F 05/06/23 06:53 Pulse 101 H 05/06/23 06:53 Resp 18 05/06/23 06:53 BP 145/76 05/06/23 06:53 Pulse Ox 95 05/06/23 06:53 FiO2 40 04/30/23 13:43 Intake & Output 05/05/23 05/06/23 05/06/23 18:59 06:59 18:59 Intake Total 400 Output Total 900 850 Balance -500 -850 Intake: Intake, IV Titration 400 Amount Dextrose 5%-0.9% NaCl 1, 400 000 ml @ 50 mls/hr IV . Q20H [facility] Rx#:[id number] Output: Urine 900 850 Other: Voiding Method Bedside Commode Urinal Diaper ABP, PAP, CO, CI - Last Documented Arterial Blood Pressure 146/54 - Labs CBC & Chem 7: 05/05/23 05:27 05/06/23 06:50 Labs: Abnormal Lab Results - Last 24 Hours (Table) 05/05/23 05/05/23 05/05/23 Range/Units 11:16 16:45 22:09 POC Glucose (mg/dL) 159 H 128 H 124 H (70-110) mg/dL 05/06/23 Range/Units 06:35 POC Glucose (mg/dL) 123 H (70-110) mg/dL
[2023-05-06] MEDS ORDERED: Magnesium Replacement Protocol 1 EACH MISC MISCELLANE PRN (12:18)
[2023-05-06] MEDS: MAGNESIUM SULFATE-D5W PMX 1 GM in DEXTROSE/WATER 1 100ML.BAG IVPB SCH ×2 (13:21→14:25)
--- NOTE | 2023-05-06 14:00 | XR ---
EXAMINATION TYPE: XR abdomen acute w cxr DATE OF EXAM: 05/06/2023 COMPARISON: NONE HISTORY: 67-year-old male abdominal distention TECHNIQUE: Supine, upright, and left side down lateral decubitus views of the abdomen are obtained. FINDINGS: Asymmetric elevation right hemidiaphragm is unchanged. Some patchy density at the right base, likely atelectasis. Heart limits of normal in size. Midline skin kaleb posteriorly. Extensive thoracolumbar hardware is present. Large patient body habitus results in underpenetration. Gassy colon. Additional scattered prominent s mall bowel loops. Some are mildly dilated up to 3.9 cm and the right side of the abdomen. No signific ant stool burden. 1.1 cm calcification right mid abdomen. No evidence for free intraperitoneal air. Cholecystectomy clips. IMPRESSION: 1. Some patchy density, likely atelectasis of the right kidney. 2. Gassy bowel. Small bowel loops in the right side of the abdomen are distended up to 3.9 cm. Given the presence of colonic air, findings probably reflect a postoperative ileus. 3. A 1.1 cm calcification right mid abdomen could represent a renal stone. 4. Thoracolumbar fusion hardware with posterior midline skin kaleb.
--- NOTE | 2023-05-06 15:14 | P.PN ---
Subjective Progress Note Date: 05/06/23 05/03/2023, patient is postop day #4 following T11-L3 decompression of an epidural abscess. The patient was on a mechanical ventilator and the patient was extubated on 04/30/2023 and the patient is currently on room air oxygen. The patient also has multiple other comorbidities. The patient had streptococcal septicemia related to an infected septic left knee. The patient has liver cirrhosis, diabetes mellitus, hypertension hyperlipidemia and gout and previous history of chronic alcohol use. Currently hemodynamically stable. The patient is currently on room air oxygen and not having any major respiratory difficulties. The blood cultures. The patient is currently on IV cefazolin. The left knee cultures have revealed no growth. Overall fluid was also negative. Blood culture was also negative. During the course of her illness, the patient received a total of 2 units of packed RBC and hemoglobin is stable for now. The patient continues to have abdominal distention secondary to ascites and liver cirrhosis. A consultation was placed for interventional radiology to undergo a paracentesis. He continues to have issues related to pain. Unable to ambulate. Physical therapy has been able to put him on a chair for brief period of time. Using incentive spirometer. On today's evaluation of 05/04/2023, the patient is postop day #5. The patient doing well and he is able to sit up on a chair. He remains on IV cefazolin. No significant ascites was noted. The patient was given laxatives and the patient had a large bowel movement. Abdomen is less distended on today's evaluation. He continues to receive Lasix 40 mg IV every 12 hours. Rest of the medications remain unchanged.No altered mentation. No chest pain. He is using the incentive spirometer. On 05/05/2023, the patient is postop day #6. The patient doing well. No specific complaints. The patient will hopefully obtain a PICC line for IV antibiotics and the patient is current on IV cefazolin. Labs are all stable. The white cell count of 7.5, hemoglobin was 8.4, B is a 30 with a creatinine of 0.6 and a sodium levels of 137. He does have some coagulopathy related to liver cirrhosis. INR is at 1.5 with a PT of 15.3. The patient denies having any abdominal pain. No nausea or vomiting. He is having bowel movements. He had a low-grade temperature. He remains on antibiotics. No other significant issues overnight. The patient is taking full liquid diet for nodule surgery is also on the case. On 05/06/2023, the patient continues to have some issues with abdominal distention. Abdominal pain. He is having bowel movements and is passing also flatness. Is running a low-grade fever. No respiratory difficulties. No respiratory distress. He is currently on full liquid diet and this will be adva nced slowly. Patient is being monitored by general surgery. No surgical intervention and the patient is going to use laxatives and stool softeners. INR is 1.8 with a PT of 18.4. Electrolytes are all stable with a BUN of 10 and a creatinine of 0.6. Patient is currently on room air oxygen with a pulse ox of 95%. He has a back brace that he is utilizing. Objective - Vital Signs Vital signs: Vital Signs Temp 99.6 F 05/06/23 06:53 Pulse 101 H 05/06/23 06:53 Resp 18 05/06/23 06:53 BP 145/76 05/06/23 06:53 Pulse Ox 95 05/06/23 06:53 FiO2 40 04/30/23 13:43 Intake & Output 05/05/23 05/06/23 05/06/23 18:59 06:59 18:59 Intake Total 400 Output Total 900 850 Balance -500 -850 Intake: Intake, IV Titration 400 Amount Dextrose 5%-0.9% NaCl 1, 400 000 ml @ 50 mls/hr IV . [facility] Rx#:[id number] Output: Urine 900 850 Other: Voiding Method Bedside Commode Urinal Diaper ABP, PAP, CO, CI - Last Documented Arterial Blood Pressure 146/54 - Exam GENERAL EXAM: Alert, pleasant 67-year-old male, on room air, fairly comfortable in no apparent distress. HEAD: Normocephalic. EYES: Normal reaction of pupils, equal size. NOSE: Clear with pink turbinates. THROAT: No erythema or exudates. NECK: No masses, no JVD. CHEST: No chest wall deformity. LUNGS: Equal air entry with no crackles, wheeze, rhonchi or dullness. CVS: S1 and S2 normal with no audible murmur, regular rhythm. ABDOMEN: Distended No hepatosplenomegaly, normal bowel sounds, no guarding or rigidity. SPINE: Surgical dressing dry and intact. Drain remains in place. SKIN: No rashes CENTRAL NERVOUS SYSTEM: No focal deficits, tone is normal in all 4 extremities. EXTREMITIES: There is 1-2+ peripheral edema. No clubbing, no cyanosis. Periphe ral pulses are intact. - Labs CBC & Chem 7: 05/05/23 05:27 05/06/23 06:50 Labs: Abnormal Lab Results - Last 24 Hours (Table) 05/05/23 05/05/23 05/06/23 Range/Units 16:45 22:09 06:35 PT (10.0-12.5) sec INR (<1.2) APTT (22.0-30.0) sec Potassium (3.5-5.5) mmol/L Carbon Dioxide (21.6-31.8) mmol/L Glucose (70-110) mg/dL POC Glucose (mg/dL) 128 H 124 H 123 H (70-110) mg/dL Calcium (8.7-10.3) mg/dL 05/06/23 05/06/23 05/06/23 Range/Units 06:50 10:06 11:22 PT 18.4 H (10.0-12.5) sec INR 1.8 H (<1.2) APTT 31.0 H (22.0-30.0) sec Potassium 3.3 L (3.5-5.5) mmol/L Carbon Dioxide 21.4 L (21.6-31.8) mmol/L Glucose 122 H (70-110) mg/dL POC Glucose (mg/dL) 145 H (70-110) mg/dL Calcium 8.6 L (8.7-10.3) mg/dL Assessment and Plan Plan: Assessment Postop day # 7 following T11-L3 decompression of the epidural abscess. Patient is currently on IV cefazolin. Sepsis source thought to be infection of the left knee prosthesis status post arthrocentesis of the left knee Septic left knee infection Streptococcal agalactiae, bacteremia Liver cirrhosis with ascites and history of esophageal varices Abdominal distention/ascites secondary to liver cirrhosis, and the patient was not found to have significant ascites and the patient was given laxatives with improvement in his abdominal distention, he may have also a component of ileus in addition. Diabetes mellitus type 2 Previous history of left total knee arthroplasty Hypertension Hyperlipidemia Gout Alcoholism Plan Pulmonary status is stable. Continue using incentive spirometer Continue IV cefazolin Obtain a PICC line Continue IV Lasix 40 milligrams every 12 hours and the patient remains in negative fluid balance No significant ascites for paracentesis and the patient was given laxatives and he continues to have some ongoing abdominal distention. Utilizing stool softeners. That'll be advanced gradually. Gradually advance diet as tolerated Blood work in the electrolytes are all stable Encourage use of incentive spirometer Patient is currently on room air oxygen Overall rest or status is stable.
--- NOTE | 2023-05-06 15:15 | P.PN ---
Subjective Progress Note Date: 05/06/23 Principal diagnosis: Reason for follow-up with Streptococcus bacteremia and concern for possible left knee septic arthritis Patient is a 67-year-old male with a past medical history significant for chronic alcoholism cirrhosis diabetes mellitus reflux in this patient who did have a left knee arthroplasty done by Dr. Bishop patient recently presented to [facility] about a week ago for evaluation of fever patient did have Streptococcus agalactiae bacteremia and the patient was noticed to have some swelling to the left knee s/p aspirate with a white count of 20,000 concerning for septic need for the patient was transferred to [facility] to be evaluated by his orthopedic surgeon.Patient did have an MRI of the lumbar spine suspicious for epidural abscess from T12-L2 and possible discitis L1-L2 MRI cervical spine no epidural abscess MRI thoracic spine tissues extension of the abscess to the T11 vertebra. Patient is status post laminectomy and drainage of the epidural abscess and implant of rods and screws life spine provide left cage, procedure completed on 04/29/2023. On today's evaluation that is 05/06/2023 the patient denies having any fever or any chills, the patient is breathing comfortably on room air, patient denies chest pain cough, the patient nausea vomiting and no abdominal pain having bowel movements Patient white count 7.45 as of 05/05/2023, creatinine 0.6, OR cultures negative Objective - Vital Signs Vital signs: Vital Signs Temp 99.6 F 05/06/23 06:53 Pulse 101 H 05/06/23 06:53 Resp 18 05/06/23 06:53 BP 145/76 05/06/23 06:53 Pulse Ox 95 05/06/23 06:53 FiO2 40 04/30/23 13:43 Intake & Output 05/05/23 05/06/23 05/06/23 18:59 06:59 18:59 Intake Total 400 450 Output Total 900 850 Balance -500 -850 450 Intake: Intake, IV Titration 400 450 Amount Dextrose 5%-0.9% NaCl 1, 400 400 000 ml @ 50 mls/hr IV . Q20H [facility] Rx#:[id number] ceFAZolin 2 gm In Sodium 50 Chloride 0.9% 50 ml @ 100 mls/hr IVPB Q8HR [facility] Rx# :[id number] Output: Urine 900 850 Other: Voiding Method Bedside Commode Urinal Diaper ABP, PAP, CO, CI - Last Documented Arterial Blood Pressure 146/54 - Exam GENERAL DESCRIPTION: An elderly male lying in bed RESPIRATORY SYSTEM: Unlabored breathing , decreased breath sounds at bases HEART: S1 S2 regular rate and rhythm , ABDOMEN: Soft , no tenderness EXTREMITIES: No edema feet - Labs CBC & Chem 7: 05/05/23 05:27 05/06/23 06:50 Labs: Abnormal Lab Results - Last 24 Hours (Table) 05/05/23 05/05/23 05/06/23 Range/Units 16:45 22:09 06:35 PT (10.0-12.5) sec INR (<1.2) APTT (22.0-30.0) sec Potassium (3.5-5.5) mmol/L Carbon Dioxide (21.6-31.8) mmol/L Glucose (70-110) mg/dL POC Glucose (mg/dL) 128 H 124 H 123 H (70-110) mg/dL Calcium (8.7-10.3) mg/dL 05/06/23 05/06/23 05/06/23 Range/Units 06:50 10:06 11:22 PT 18.4 H (10.0-12.5) sec INR 1.8 H (<1.2) APTT 31.0 H (22.0-30.0) sec Potassium 3.3 L (3.5-5.5) mmol/L Carbon Dioxide 21.4 L (21.6-31.8) mmol/L Glucose 122 H (70-110) mg/dL POC Glucose (mg/dL) 145 H (70-110) mg/dL Calcium 8.6 L (8.7-10.3) mg/dL Assessment and Plan (1) Allergy to sulfa drugs Current Visit: Yes Status: Acute Code(s): Z88.2 - ALLERGY STATUS TO SULFONAMIDES SNOMED Code(s): 17295699 (2) Bacteremia due to Streptococcus Current Visit: Yes Status: Acute Code(s): R78.81 - BACTEREMIA; B95.5 - UNSP STREPTOCOCCUS THE CAUSE OF DISEASES CLASSD [facility] SNOMED Code(s): 556797730752 (3) Septic arthritis of knee, left Current Visit: Yes Status: Acute Code(s): M00.9 - PYOGENIC ARTHRITIS, UNSPECIFIED SNOMED Code(s): 525645087 (4) Abscess in epidural space of lumbar spine Current Visit: Yes Status: Acute Code(s): G06.1 - INTRASPINAL ABSCESS AND GRANULOMA SNOMED Code(s): 282459040 (5) Discitis of lumbar region Current Visit: Yes Status: Acute Code(s): M46.46 - DISCITIS, UNSPECIFIED, LUMBAR REGION SNOMED Code(s): 730505252 Plan: 1patient presented to hospital with weakness fever did have Streptococcus agalactiae bacteremia in this patient who did have a significant swelling to the left knee along with the stiffness with aspiration of the left knee cell count more than 20,000 white cell high clinical suspicious for septic arthritis likely related to streptococci 2- -blood cultures repeat has been negative 3patient did have an MRI of the lumbar spine suspicious for epidural abscess from T12-L2 and possible discitis L1-L2, MRI of the cervical spine was negative for any epidural abscess MRI of the thoracic spine did show extension of the abscess to T11 vertebra, the patient status post drainage of the epidural abscess along with laminectomy and hardware placement on 04/29/2023, OR cultures so far negative 4-patient is afebrile and white count has normalized, currently waiting for PICC line placement 5patient will continue on cefazolin to finish 6-week course of therapy and close outpatient follow-up Dictation was produced using [employer] dictation software. please excuse any grammatical, word or spelling errors. Time with Patient: Less than 30
[2023-05-06 16:30] LABS: Glucose,Whole Blood 117 mg/dL (70-110)
[2023-05-06] MEDS: COLESEVELAM 625 MG TAB PO SCH (16:46)
--- NOTE | 2023-05-06 18:31 | P.PN ---
Subjective Progress Note Date: 05/06/23 This is a 67-year-old male patient of Dr. Loli Campbell, patient has medical history of abdominal ascites and liver cirrhosis, chronic alcoholism, diabetes mellitus, hemorrhoids, gastroesophageal reflux disease. Patient follows with dr rocco turcios underwent upper and lower endoscopy in January of 2023 has history of esophageal varices which underwent banding in Jan as well. Has a history of left lower extremity total knee arthroplasty done a year ago, initially presented to [facility] [place] with left lower extremity edema with concern for infected prosthetic of the left knee. He presented to [facility] with fevers progressive weakness and back pain. States fever was as high as 104. He was also anemic hemoglobin 6.5 requiring 2 unit of PRBC. Patient was found to have strep agalactaie bacteremia with features of sepsis over at [facility]. He was treated with IV ceftriaxone 2 grams. Patient also with recent influenza infection and hypoxia at [facility]. He had a venous doppler of the left leg at [facility] negative for acute DVT. He underwent arthrocentesis of the left knee joint effusion show ing 20,000 WBCs and suspicious for infected prosthesis was recommended to transfer to [facility] for further evaluation by Dr Bishop. Yesterday before transfer he underwent work up for abdominal ascites which he has undergo paracentesis in the past, he had an abdominal ultrasound showing significant amount of intraabdominal ascites. IR consulted. He is admitted to this hospital with consults placed to [place] and infectious disease. 04/24/2023 Patient evaluated today sitting up in bed. He was seen in consultation by ID who has changed antibiotics to IV cefazolin from ceftriaxone with plans to repeat blood culture. Underwent paracentesis 1.5 L off. Sodium 135, potassium 3.3, BUN 8, creatinine 0.50, magnesium 1.8, CRP 6.2. Orthopedics not recommending any surgical intervention at this time. 04/25/2023 Patient is evaluated today resting in bed. pts is at the bedside and plan of care was discussed thoroughly. Patient remains on IV Cefazolin with repeat blood cultures pending and negative so far. Infectious disease is following this case. He is status post paracentesis. Again orthopedics not recommending any surgical intervention for the right knee septic arthritis. 04/26/2023 Patient is still complaining from left knee swelling, patient states is better, pain controlled no erythema. Orthopedic surgery planning for surgery for infected prosthesis onto stages first one on 04/29 MRI of the lumbar spine is ordered to rule out infection Cardiology team preoperative evaluation is ordered Patient remains on IV cefazolin Repeat blood culture/6 still show no growth ID team on the case 04/27/2023 Patient with minimal back pain and his left knee with no significant pain is still warm and swollen with no redness. Initially orthopedic team are planning for surgical debridement of his left knee. However MRI of the lumbar spine showing epidural abscess of the distal thoracic and irrigated proximal lumbar vertebrae. Orthopedic team still on the case with follow the patient and needs surgery was held and replaced to do lumbar surgery with ( T11-L3 decompression and fusion along with epidural abscess/phlegmon evacuation for 04/29/2023.) Preoperative cardiac evaluation is requested Chest pain or dyspnea No change in urine or bowel habits. No fever. Monitor blood pressure Continue with cefazolin 04/28. Patient seen and examined. Still has left knee pain. 04/29/2023 Patient is seen this am and awaiting T11-L3 decompression and fusion along with epidural abscess/phlegmon evacuation some time today with orthopedics. ID following and patient is continued on IV antibiotics and awaiting surgery and finalized cultures. Will await and discuss with ortho regarding left knee as patient continues to report left knee swelling and pain. Patient is afebrile with no reports of chest pain or shortness of breath. Patient hemoglobin is 9 today and per ortho patient is to receive 2 units of blood for surgery. Will await surgical report 04/30/2023 Patient is seen in follow-up this morning continues on mechanical ventilation and FiO2 is currently 60% with the PEEP of 5. Patient continues on low-dose Levophed 0.01 and is status post T11-L3 decompression. Per nursing staff patient is slowly being weaned off Levophed and working on sedation trials for weaning off mechanical ventilation. Patient continues on IV antibiotics with infectious disease following. Deep tissue cultures obtained and pending at this time. Patient is afebrile. Patient has indwelling Truong catheter with minimal output noted and will add lactated Ringer 700 mL per hour and follow-up with repeat labs. 05/02/2023 Patients with minimal back pain and no knee pain, no significant other complaint He has poor appetite and constipated and started on lactulose today He has some evidence of fluid overload with some ascites and minimal bilateral pleural effusion seen on CAT scan of the abdomen and pelvis today however there is no other acute process, mild ileus is suspected. He remains on cefazolin for his Streptococcus agalactiae bacteremia LAD Lasix 3 days 40 mg on the top of his 20 mg by mouth twice daily Also worked his fluids to D5 normal saline at 50 mL/h and Versed of 100 mL per hour 05/03/2023 Patient mentation. He is awake , not eating since surgery. Has mild stomach ache, abdomen is mildly distended. Abdomen ultrasound ordered and GI team consulted. Patient had 3 bowel movements yesterday for the first time at their worst mushy with no blood His been bothered by his Truong catheter but no suprapubic pain or tenderness. Remains on antibiotic cefazolin and diuretics IV Lasix and Aldactone 05/04/2023 Patient is seen today in follow up currently sitting up in the chair with family at the bedside. Pattient is status post t11-L3 decompression. Patient is continued on IV lasix and awaiting am labs. Per nursing staff he was not tolerating much diet and having distention and diet was decreased to full liquids. Patient was able to have a bowel movement. Patient is extremely weak and has not been up and moving much. Patient with significant weakness, will need ecf on discharge. Patient is afebrile with no reports of chest pain or shortness of breath. Patient is being followed by GI as well for the ascites. Patient reports he had a paracentesis last week some time. Poor historian. 05/05/2023 Patient is seen in follow-up this morning were awake and alert with no reports of acute issues overnight. Multiple medical consultations following and patient is scheduled to receive a PICC line today. Patient will continue on IV cefazolin per ID recommendations and the outpatient setting for 6 weeks. Patient follow-up outpatient with orthopedics. General surgery following as well with abdominal distention and ileus although patient reports is passing gas and did have bowel movements. Patient is continued on full liquids at this time and will continue for now. Patient with abdominal distention will evaluate for any ascites is patient did have a paracentesis on admission. Patient is currently afebrile with no reports of chest pain or shortness of breath. Patient with significant weakness will be going to ECF on discharge. Case georgina philip following working in discharge planning. 05/06/2023 Patient seen and evaluated in follow-up today appeared slightly more distended in the abdomen with concerns of postop ileus. Patient is having bowel movements and patient was evaluated by general surgery maintained on full liquids and has been cleared by surgery for discharge planning. Will obtain x-ray of the abdomen for further evaluation. Patient is on room air denies chest pain or shortness of breath. Patient also continues on IV Lasix and will transition to oral Lasix and continue with Aldactone. Patient is to receive a PICC line today for continued IV antibiotic therapy with infectious disease following an maintained on cefazolin. Patient will be going to ECF on discharge. Review of systems: Constitutional: No reports of fatigue, fever, or chills Cardiovascular: No reports of chest pain or palpitations Respiratory: No reports of shortness of breath or cough GI: No reports of nausea, vomiting, or diarrhea, reports having bowel movement today : No reports of dysuria or retention Neurovascular: reports of generalized weakness and some back pain All medications have been reviewed PHYSICAL EXAMINATION: GENERAL: The patient is a 67-year-old male who is awake, alert and oriented x2- 3. Well developed, well nourished. Obese HEENT: Pupils are round and equally reacting to light. EOMI. No scleral icterus. No conjunctival pallor. Normocephalic, atraumatic. No pharyngeal erythema. No thyromegaly. CARDIOVASCULAR: S1 and S2 muffled PULMONARY: Chest is clear to auscultation, no wheezing or crackles. ABDOMEN: Soft, nontender, appears slightly more distended, normoactive bowel sounds. No palpable organomegaly. MUSCULOSKELETAL: No joint swelling or deformity. Left knee with no obvious swelling or erythema noted EXTREMITIES: No cyanosis, clubbing, or pedal edema. NEUROLOGICAL: no reported numbness or tingling of extremities. diffusely weak SKIN: No rashes. Assessment: Patient is postop T11-L3 decompression with epidural abscess evacuation Strep Algalactaie bacteremia with features of sepsis, ongoing likely due to epidural abscess as well as concerns for left knee septic joint Concerns for Left knee septic joint, does not appear septic. Ruled out Will need outpatient follow-up History of esophageal varices with banding in january Hypokalemia, improved Hx of cirrhosis, abdominal ascites ultrasound showing significant ascites s/p paracentesis with 1.5 L off and continued on aldactone and lasix BID. Hx of GERD Diabetes Mellitus type 2 hgb A1C 6.9 continue on accuchecks achs and sliding scale insulin. History of left TKA Hypertension continues on losartan BID and atenolol. Hemorrhoids Chronic alcohol use monitor for alcohol withdrawal Hx of gout continue on allopurinol GI prophylaxis DVT prophylaxis Full code Plan: Patient is status post T11-L3 decompression and fusion along with epidural abscess/phlegmon evacuation Patient is currently sitting up in the chair and per nursing staff has not been up and moving very much needs encouragement with increased activity Continue to monitor urinary output as indwelling Truong catheter has been removed patient has been using a urinal GI following with ascites and status post 1.5 L from paracentesis. Patient appears slightly more distended today and abdominal ultrasound shows mild to moderate ascites is. Likely still contributing to postoperative ileus. Patient is continued on lactulose daily and will advance to twice daily and continue bowel regimen. Patient to continue on full liquids for now and will slowly advance as tolerated. Patient is scheduled for PICC line today with infectious disease following and patient will continue on IV cefazolin for 6 weeks in the outpatient setting Recommend repeat labs in the a.m. and replace electrolytes per protocol. Potassium 3.5 and will add supplement and monitor closely as patient is also taking Aldactone Case management following working in discharge planning is patient will be going to ECF Possible discharge in the next 24-48 hours The impression and plan of care has been dictated by Cortney Pierce, Nurse Practitioner as directed. Dr. Danuta MD I have performed a history and examination and MDM of this patient, discussed the same with the dictator, and agree with the dictator's assessment and plan as written ,documented as a scribe. Based on total visit time, I have performed more than 50% of the visit. Objective - Vital Signs Vital signs: Vital Signs Temp 99.6 F 05/06/23 06:53 Pulse 101 H 05/06/23 06:53 Resp 18 05/06/23 06:53 BP 145/76 05/06/23 06:53 Pulse Ox 95 05/06/23 06:53 FiO2 40 04/30/23 13:43 Intake & Output 05/05/23 05/06/23 05/06/23 18:59 06:59 18:59 Intake Total 400 Output Total 900 850 Balance -500 -850 Intake: Intake, IV Titration 400 Amount Dextrose 5%-0.9% NaCl 1, 400 000 ml @ 50 mls/hr IV . Q20H [facility] Rx#:[id number] Output: Urine 900 850 Other: Voiding Method Bedside Commode Urinal Diaper ABP, PAP, CO, CI - Last Documented Arterial Blood Pressure 146/54 - Labs CBC & Chem 7: 05/05/23 05:27 05/06/23 06:50 Labs: Abnormal Lab Results - Last 24 Hours (Table) 05/05/23 05/05/23 05/05/23 Range/Units 11:16 16:45 22:09 POC Glucose (mg/dL) 159 H 128 H 124 H (70-110) mg/dL 05/06/23 Range/Units 06:35 POC Glucose (mg/dL) 123 H (70-110) mg/dL
[2023-05-06 20:42] LABS: Glucose,Whole Blood 128 mg/dL (70-110)
[2023-05-06] MEDS: ACETAMINOPHEN TAB 325 MG TAB PO PRN (20:54)
[2023-05-06] MEDS: guaiFENesin SYRUP 100MG/5ML 200 MG/10 ML CUP PO PRN (20:54)
[2023-05-06] MEDS: POTASSIUM CHLORIDE ER 10 MEQ TAB.ER.PRT PO SCH (20:55)
[2023-05-06] MEDS: MAGNESIUM OXIDE 400 MG TAB PO SCH (20:55)
[2023-05-07 05:45] LABS: Glucose,Whole Blood 117 mg/dL (70-110)
[2023-05-07] MEDS: INSULIN ASPART (NovoLOG) 100 UNIT/ML VIAL SQ SCH ×2 (05:59→12:51)
[2023-05-07] MEDS ORDERED: LIDOCAINE 1% INJ 10MG/ML (20 ML MDV) SQ ONE (08:00)
--- NOTE | 2023-05-07 08:11 | P.OP ---
Date of Procedure: 05/07/23 Description of Procedure: Preoperative Diagnosis: Need for long-term IV antibiotic access. Postoperative Diagnosis: Same. Procedure(s) Performed: Ultrasound-guided cannulation left basilic vein. Insertion of peripherally inserted central catheter under fluoroscopic guidance. Anesthesia: local 1% lidocaine emilia Surgeon: Alexi Estimated Blood Loss (ml): 5 IV fluids (ml): 0 Urine output (ml): 0 Pathology: none sent Condition: stable Disposition: no change Indications for Procedure: Patient requires long-term IV antibiotics as an outpatient patient is offered a PICC line to allow for intravenous administration of antibiotics. Description of Procedure: Patient was brought to the special procedure suite. The left upper extremity sterilely prepped and draped in usual manner. Ultrasound was utilized to identify the basilic vein which was normally compressible free of visible thrombus. Permenant image was stored. 1% Xylocaine was utilized for local anesthesia tissues overlying the vein. Through this anesthetized area and with the aid of ultrasound a micropuncture needle was utilized to cannulate the vein. Once cannulated, Softip guidewire was advanced into the vein. The needle was withdrawn and a micropuncture sheath and dilator advanced over the guidewire. The guidewire was withdrawn and exchanged for the PICC guidewire and measured 38 cm to the cavoatrial junction. The catheter was cut to size and advanced into the cavoatrial junction without resistance. The sheath was peeled away. Blood was easily withdrawn through the catheter and the catheter was then flushed with heparinized saline solution and secured to the skin. Patient tolerated procedure well and was returned to their room in satisfactory and stable condition.
--- NOTE | 2023-05-07 08:32 | IR ---
EXAMINATION TYPE: IR cvc insert >=5 years DATE OF EXAM: 05/07/2023 COMPARISON: NONE HISTORY: Fluoroscopy time. Fluoroscopy was provided to the referring clinician.
[2023-05-07] MEDS: LACTULOSE 20 GM/30 ML CUP PO SCH (09:01)
[2023-05-07] MEDS: MAGNESIUM HYDROXIDE 2,400 MG/30 ML CUP PO SCH (09:01)
[2023-05-07] MEDS: SPIRONOLACTONE 25 MG TAB PO SCH (09:03)
[2023-05-07] MEDS: FUROSEMIDE 10 MG/ML 4 ML VIAL IV SCH (09:03)
[2023-05-07] MEDS: MULTIVITAMINS, THERA 1 EACH TAB PO SCH (09:04)
[2023-05-07] MEDS: PANTOPRAZOLE 40 MG TABLET PO SCH (09:04)
[2023-05-07] MEDS: POTASSIUM CHLORIDE ER 10 MEQ TAB.ER.PRT PO SCH (09:04)
[2023-05-07] MEDS: SENNOSIDES-DOCUSATE SODIUM 1 EACH TAB PO SCH (09:04)
[2023-05-07] MEDS: CHOLECALCIFEROL 25 MCG (1000 IU) TABLET PO SCH (09:04)
[2023-05-07] MEDS: MAGNESIUM OXIDE 400 MG TAB PO SCH (09:04)
[2023-05-07] MEDS: HEPARIN SODIUM,PORCINE 5,000 UNIT/ML 1 ML VIAL SQ SCH (09:04)
[2023-05-07] MEDS: ASPIRIN 81 MG PO SCH (09:04)
[2023-05-07] MEDS: ASCORBIC ACID 500 MG TAB PO SCH (09:04)
[2023-05-07] MEDS: allopurinoL 300 MG TAB PO SCH (09:04)
[2023-05-07] MEDS: atenoloL 50 MG TAB PO SCH (09:04)
[2023-05-07] MEDS: LOSARTAN 50 MG TAB PO SCH (09:04)
[2023-05-07 10:17] LABS: African American GFR (CKD) >90 (>60 ml/min/1.73 sqM); Anion Gap 5 mmol/L; Blood Urea Nitrogen 10 mg/dL (9-20); Calcium 8.7 mg/dL (8.4-10.2); Carbon Dioxide 21 mmol/L (22-30); Chloride 107 mmol/L (98-107); Glucose 103 mg/dL (74-99); Magnesium 1.5 mg/dL (1.6-2.3); Non-African American GFR(CKD) >90 (>60 ml/min/1.73 sqM); Sodium 133 mmol/L (137-145)
[2023-05-07 11:22] LABS: Glucose,Whole Blood 192 mg/dL (70-110)
[2023-05-07] MEDS ORDERED: Magnesium Replacement Protocol 1 EACH MISC MISCELLANE PRN (11:24)
[2023-05-07] MEDS ORDERED: Potassium Replacement Protocol 1 EACH MISC MISCELLANE PRN (11:24)
[2023-05-07] MEDS ORDERED: MAGNESIUM SULFATE-D5W PMX 1 GM in DEXTROSE/WATER 1 100ML.BAG IVPB SCH (11:30)
--- NOTE | 2023-05-07 11:31 | P.PN ---
Subjective Progress Note Date: 05/07/23 CHIEF COMPLAINT: Abdominal distention HISTORY OF PRESENT ILLNESS: Patient denies any abdominal pain. He denies any nausea or vomiting. He has had bowel movements. Afebrile. Sodium 133 potassium 3.0 creatinine 0.53 magnesium 1.5. Abdominal x-ray from yesterday gassy bowel. Small bowel loops in the right side of the abdomen are distended up to 3.9 cm. Given the presence of colonic air, findings probably reflecting a postoperative ileus. Family concerned about patient's intermittent confusion. As an service has ordered an ammonia level. PHYSICAL EXAM: VITAL SIGNS: Reviewed. GENERAL: Well-developed in no acute distress. ABDOMEN: distended. Slightly softer. Nontender. Reducible umbilical hernia ASSESSMENT: 1. Abdominal distention 2. Ileus 3. History of liver cirrhosis with ascites 4. Septic left knee infection 5. T 11 through L3 decompression of the epidural abscess 6. Hypokalemia and hypomagnesemia PLAN: -Continue full liquid diet and advance as tolerated -Continue to correct electrolytes -No surgical intervention planned -Continue laxatives and stool softeners at discharge -Encouraged patient to increase activity level -Patient can be discharged from surgical standpoint when medically cleared Physician Head Kiln Operator note has been reviewed by physician. Signing provider agrees with the documented findings, assessment, and plan of care. Objective - Vital Signs Vital signs: Vital Signs Temp 99.5 F 05/07/23 06:53 Pulse 105 H 05/07/23 06:53 Resp 16 05/07/23 06:53 BP 136/78 05/07/23 06:53 Pulse Ox 96 05/07/23 06:53 FiO2 40 04/30/23 13:43 Intake & Output 05/06/23 05/07/23 05/07/23 18:59 06:59 18:59 Intake Total 450 480 Output Total 250 100 Balance 200 380 Intake: Intake, IV Titration 450 Amount Dextrose 5%-0.9% NaCl 1, 400 000 ml @ 50 mls/hr IV . Q20H [facility] Rx#:[id number] ceFAZolin 2 gm In Sodium 50 Chloride 0.9% 50 ml @ 100 mls/hr IVPB Q8HR [facility] Rx# :[id number] Oral 480 Output: Urine 250 100 Other: Voiding Method Toilet Urinal # Voids 3 1 # Bowel Movements 1 ABP, PAP, CO, CI - Last Documented Arterial Blood Pressure 146/54 - Labs CBC & Chem 7: 05/05/23 05:27 05/07/23 05:40 Labs: Abnormal Lab Results - Last 24 Hours (Table) 05/06/23 05/06/23 05/06/23 Range/Units 06:50 10:06 11:22 PT 18.4 H (10.0-12.5) sec INR 1.8 H (<1.2) APTT 31.0 H (22.0-30.0) sec Sodium (137-145) mmol/L Potassium 3.3 L (3.5-5.5) mmol/L Carbon Dioxide 21.4 L (21.6-31.8) mmol/L Creatinine (0.66-1.25) mg/dL Glucose 122 H (70-110) mg/dL POC Glucose (mg/dL) 145 H (70-110) mg/dL Calcium 8.6 L (8.7-10.3) mg/dL Magnesium (1.6-2.3) mg/dL 05/06/23 05/06/23 05/07/23 Range/Units 16:28 20:41 05:40 PT (10.0-12.5) sec INR (<1.2) APTT (22.0-30.0) sec Sodium 133 L (137-145) mmol/L Potassium 3.0 L (3.5-5.5) mmol/L Carbon Dioxide 21 L (21.6-31.8) mmol/L Creatinine 0.53 L (0.66-1.25) mg/dL Glucose 103 H (70-110) mg/dL POC Glucose (mg/dL) 117 H 128 H (70-110) mg/dL Calcium (8.7-10.3) mg/dL Magnesium 1.5 L (1.6-2.3) mg/dL 05/07/23 Range/Units 05:44 PT (10.0-12.5) sec INR (<1.2) APTT (22.0-30.0) sec Sodium (137-145) mmol/L Potassium (3.5-5.5) mmol/L Carbon Dioxide (21.6-31.8) mmol/L Creatinine (0.66-1.25) mg/dL Glucose (70-110) mg/dL POC Glucose (mg/dL) 117 H (70-110) mg/dL Calcium (8.7-10.3) mg/dL Magnesium (1.6-2.3) mg/dL
[2023-05-07] MEDS ORDERED: POTASSIUM CHLORIDE ER 20 MEQ TAB.ER PO SCH (12:00)
--- NOTE | 2023-05-07 12:05 | P.DS ---
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, tx from [facility] Do you want consulting provider notified?: Yes 04/23/23 10:07 Consult Physician Routine Consulting Provider: Sharon Davenport Consult Reason/Comments: poss infected L knee prosthesis, Strep Agalactaie bacteremia at [facility] Do you want consulting provider notified?: Yes 04/27/23 09:16 Consult Physician Urgent Consulting Provider: Guillaume Narayanan Consult Reason/Comments: epidural abscess Do you want consulting provider notified?: Yes 04/30/23 07:30 Consult Physician Urgent Consulting Provider: Connor Curtis Consult Reason/Comments: vent/icu management Do you want consulting provider notified?: Already Contacted 05/02/23 12:42 Consult Physician Routine Consulting Provider: Ale Randhawa Consult Reason/Comments: constipation Do you want consulting provider notified?: Yes 05/02/23 12:54 Consult Physician Routine Consulting Provider: Ale Randhawa Consult Reason/Comments: constipation Do you want consulting provider notified?: Already Contacted Primary care physician: Daryl Campbell [facility] Course: Final diagnosis Patient is postop T11-L3 decompression with epidural abscess evacuation Strep Algalactaie bacteremia with features of sepsis, ongoing likely due to epidural abscess Concerns for Left knee septic joint, does not appear septic. Ruled out Will need outpatient follow-up History of esophageal varices with banding in january Hypokalemia, secondary to poor oral intake and diuretics Hx of cirrhosis, abdominal ascites ultrasound showing significant ascites s/p paracentesis with 1.5 L off and continued on aldactone and lasix BID. Hx of GERD Diabetes Mellitus type 2 hgb A1C 6.9 continue on accuchecks achs and sliding scale insulin. History of left TKA Hypertension continues on losartan BID and atenolol. Hemorrhoids Chronic alcohol use monitor for alcohol withdrawal Hx of gout continue on allopurinol GI prophylaxis DVT prophylaxis Full code Discharge disposition Patient is being discharged in a stable condition with guarded prognosis to [facility]. Patient will follow-up with Dr. Campbell in the outpatient setting upon discharge. Patient is to follow-up with orthopedics, general surgery, GI outpatient as scheduled. Patient needs repeat labs in 2-3 days to monitor electrolytes and kidney functions. Patient has received a PICC line and will continue on IV antibiotics in the form of cefazolin 3 times daily for the next 6 weeks per ID recommendations. Patient to follow-up with infectious disease outpatient in next 2 weeks. Total time taken is greater than 35 minutes. Hospital course This is a 67-year-old male who was recently admitted with concerns of possible infected prosthetic of the left knee having fevers and progressive weakness and back pain and was sent over here from [facility] for evaluation from orthopedics for his knee prosthesis and was being followed closely by multiple medical consultations. Patient with features of sepsis and bacteremia and underwent MRI of the back showing an epidural abscess and is status post T11-L3 decompression with epidural abscess evacuation. Patient is maintained on antibiotics with infectious disease following and has received a PICC line and will continue on cefazolin 3 times daily for the next 6 weeks. Patient also with significant history of chronic alcohol use and cirrhosis with abdominal ascites was evaluated by GI recommending continuing Lasix and Aldactone and outpatient follow-up. Patient also underwent paracentesis during this admission with approximately 1.5 L removed. Patient also developed postoperative ileus with general surgery following with no plans of surgical intervention and patient is having bowel movements. Recommend continuing bowel regimen including lactulose twice daily and close outpatient follow-up. Patient's magnesium and potassium continue to be on the lower side with poor oral intake and has encouraged increased appetite. Patient is a diabetic and recommend monitoring Accu-Cheks before meals and at bedtime and will continue with current regimen of sliding scale. Patient has been cleared by consultations for discharge to [facility]. Patient with significant weakness will be going to [facility]. Please refer to other consultation notes for further HPI. Currently no reports of chest pain, shortness of breath, or palpitations. Patient is afebrile. No reports of nausea or vomiting and patient is tolerating diet. Patient will be discharged to [facility] today. High risk for readmissions given patient's significant comorbidities. Physical exam: Gen: This is a 67-year-old male who is awake, alert and oriented 2-3, well- developed, elderly-appearing HEENT: Head is atraumatic, normocephalic. Pupils equal, round. Sclerae is anicteric. NECK: Supple. No JVD. No lymphadenopathy. No thyromegaly. LUNGS: Clear to auscultation. No wheezes or rhonchi. No intercostal retractions. HEART: Regular rate and rhythm. No murmur. ABDOMEN: Soft. Mildly distended, tympanic, Bowel sounds are present. No masses. No tenderness. EXTREMITIES: No pedal edema. No calf tenderness. Mild bilateral lower extremity edema, nonpitting NEUROLOGICAL: Patient is awake, alert and oriented x2-3. Baseline. Cranial nerves 2 through 12 are grossly intact. Diffusely weak Please refer to medication reconciliation sheet for a list of medications. The impression and plan of care has been dictated by Cortney Pierce, Nurse Practitioner as directed. Dr. Danuta MD I have performed a history and examination and MDM of this patient, discussed the same with the dictator, and agree with the dictator's assessment and plan as written ,documented as a scribe. Based on total visit time, I have performed more than 50% of the visit. Patient Condition at Discharge: Fair Plan - Discharge Summary New Discharge Prescriptions: New Lactulose [Cephulac] 30 gm PO BID ml guaiFENesin SYRUP 100MG/5ML [Robitussin] 200 mg PO Q6HR PRN ml PRN Reason: Cough Acetaminophen Tab [Tylenol] 650 mg PO Q6HR PRN tab PRN Reason: Fever And/ Or Pain traMADol HCl [Ultram] 50 mg PO QID PRN #6 tab PRN Reason: Pain Potassium Chloride [K-Tab ER] 20 meq PO BID #60 tab ceFAZolin [Kefzol] 2,000 mg IVPB Q8HR 42 Days #126 each Spironolactone [Aldactone] 50 mg PO BID tab Ipratropium-Albuterol Nebulize [Duoneb 0.5 mg-3 mg/3 ml Soln] 3 ml INHALATION RT-QID PRN each PRN Reason: Shortness Of Breath Or Wheezing Heparin Sodium,Porcine (1 ml) [Heparin Sodium] 5,000 unit SQ Q12HR each Furosemide [Lasix] 40 mg PO BID #60 tablet Magnesium Oxide [Mag-Ox] 400 mg PO BID tab INSULIN ASPART (NovoLOG) [NovoLOG (formulary)] 0 unit SQ ACHS each Sennosides-Docusate Sodium [Senokot-S] 2 each PO DAILY tab Magnesium Hydroxide [Milk of Magnesia] 2,400 mg PO DAILY 30 Days #240 ml Simethicone 40 mg/0.6 ml Drops [Mylicon Drops] 40 mg PO QID #7 ml Continue allopurinoL [Zyloprim] 300 mg PO DAILY Colesevelam [Welchol] 1,875 tab PO AC-SUPPER Multivitamin/Iron/Folic Acid [Centrum Adults Tablet] 1 tab PO DAILY Losartan Potassium 50 mg PO BID Aspirin [Adult Low Dose Aspirin EC] 81 mg PO DAILY Ascorbic Acid [Vitamin C] 1,000 mg PO DAILY Omeprazole 20 mg PO BID atenoloL [Tenormin] 50 mg PO DAILY Cholecalciferol [Vitamin D3 (25 Mcg = 1000 Iu)] 50 mcg PO DAILY Discharge Medication List Colesevelam [Welchol] 1,875 tab PO AC-SUPPER 09/18/14 [History] allopurinoL [Zyloprim] 300 mg PO DAILY 09/18/14 [History] Multivitamin/Iron/Folic Acid [Centrum Adults Tablet] 1 tab PO DAILY 11/19/17 [History] Omeprazole 20 mg PO BID 03/07/21 [History] Losartan Potassium 50 mg PO BID 10/10/21 [History] atenoloL [Tenormin] 50 mg PO DAILY 10/10/21 [History] Ascorbic Acid [Vitamin C] 1,000 mg PO DAILY 01/28/23 [History] Aspirin [Adult Low Dose Aspirin EC] 81 mg PO DAILY 01/28/23 [History] Cholecalciferol [Vitamin D3 (25 Mcg = 1000 Iu)] 50 mcg PO DAILY 04/22/23 [History] Acetaminophen Tab [Tylenol] 650 mg PO Q6HR PRN tab 05/07/23 [Rx] Furosemide [Lasix] 40 mg PO BID #60 tablet 05/07/23 [Rx] Heparin Sodium,Porcine (1 ml) [Heparin Sodium] 5,000 unit SQ Q12HR each 05/07/23 [Rx] INSULIN ASPART (NovoLOG) [NovoLOG (formulary)] 0 unit SQ ACHS each 05/07/23 [Rx] Ipratropium-Albuterol Nebulize [Duoneb 0.5 mg-3 mg/3 ml Soln] 3 ml INHALATION RT-QID PRN each 05/07/23 [Rx] Lactulose [Cephulac] 30 gm PO BID ml 05/07/23 [Rx] Magnesium Hydroxide [Milk of Magnesia] 2,400 mg PO DAILY 30 Days #240 ml 05/07/23 [Rx] Magnesium Oxide [Mag-Ox] 400 mg PO BID tab 05/07/23 [Rx] Potassium Chloride [K-Tab ER] 20 meq PO BID #60 tab 05/07/23 [Rx] Sennosides-Docusate Sodium [Senokot-S] 2 each PO DAILY tab 05/07/23 [Rx] Simethicone 40 mg/0.6 ml Drops [Mylicon Drops] 40 mg PO QID #7 ml 05/07/23 [Rx] Spironolactone [Aldactone] 50 mg PO BID tab 05/07/23 [Rx] ceFAZolin [Kefzol] 2,000 mg IVPB Q8HR 42 Days #126 each 05/07/23 [Rx] guaiFENesin SYRUP 100MG/5ML [Robitussin] 200 mg PO Q6HR PRN ml 05/07/23 [Rx] traMADol HCl [Ultram] 50 mg PO QID PRN #6 tab 05/07/23 [Rx] Follow up Appointment(s)/Referral(s): Damien Bishop DO [Doctor of Osteopathic Medicine] - 05/25/23 9:10 am Daryl Campbell DO [Primary Care Provider] - 1 Week ([facility] please call for follow-up appointment.) Guillaume Narayanan DO [Doctor of Osteopathic Medicine] - 05/12/23 9:45 am Sharon Davenport MD [STAFF PHYSICIAN] - 1 Week (Office is not answering. Please call for follow-up appointment.) Tricia Bangura MD [STAFF PHYSICIAN] - 3 Weeks Ambulatory/Diagnostic Orders: Basic Metabolic Panel [LAB.AMB] Location: None Selected C Reactive Protein [LAB.AMB] Location: None Selected Complete Blood Count w/diff [LAB.AMB] Location: None Selected Erythrocyte Sedimentation Rate [LAB.AMB] Location: None Selected Patient Instructions/Handouts: Abscess (GEN), How to Care for Your PICC (Peripherally Inserted Central Catheter) (DC) Activity/Diet/Wound Care/Special Instructions: Spine Discharge and Recovery Instructions Date of Surgery: 04/29/2023 Diagnosis: epidural abscess Procedure: T11L3 decompression and fusion with evacuation of epidural abscess Medications: See medication list All medication refills should be obtained through your primary care doctor or your clinic spine surgeon. Please discuss prescription refills at your follow up appointment. Do not call the hospital for medication refills. Activity: Encourage ambulation with assist of walker, Up and about 6-8x daily PT/OT daily work on balance, strength and mobility Up in chair with all meals Shower daily Brace: Use brace when up and about, do not wear in bed or shower Dressing: Leave your dressing in place for a total of 3 days post operatively. Then you may remove your dressing and leave open to air. Keep the area clean and if not able to keep area clean, then cover with sterile gauze and tape. Showering: You may shower 3 days after your procedure allowing soap and water to run over incision. Do not scrub. Do not soak. Blot dry. Follow up: Please confirm a follow up appointment with your surgeon 2 weeks post operatively. Please make an appointment to follow up with your PCP in 1-2 weeks after surgery for evaluation 3 phase, 3-week plan POST OP WEEKS 1-3 1. Lifting/carrying/pushing/pulling limited to less than 5 pounds. 2. Do not sit for longer than 15 minutes at one time. Get up and walk around. Prolonged sitting is NOT advised. If you lay down, see if you can tolerate laying down on you front (belly side) 3. Walk for periods of 15 minutes = 1 mile but no longer; do it multiple times times each day. 4. Ice your low back after activity. POST OP WEEKS 3-6 1. Lifting limited to less than 20 pounds. 2. Do not sit for longer than 30 minutes at a time. Frequently change positions. Use a sit-to stand workstation or take frequent breaks from sitting if you have returned to work. 3. Walk for 30 minutes each day. If possible, do these three or more times a day POST OP WEEKS 6+ At your 6-week appointment we will give you a physical therapy referral to focus on a core stabilization and strengthening program. You should also work on leg & buttock strengthening, hamstring & quadriceps stretching, and continue a low impact aerobic activity program such as swimming, walking, or riding a stationary bicycle. During the initial 6 weeks after your surgery, you are at the highest risk of re-injuring your spine. You should generally avoid BLTs (bending, lifting and twisting combination motions) and follow the above guidelines to reduce the chance of reinjury. You can anticipate post op appointments in our office at approximately 3 weeks and 6 weeks after your surgery. INCISION CARE: If your incision is not draining you do NOT need to cover it with a dressing. Keep your incision clean, dry and intact. In most cases, we apply skin glue, kaleb or sutures to the incision at the time of surgery. This will be like a crust or have the appearance of a scab and will fall off in time on its own. The stitches or kaleb need to be removed at 3 weeks post op appointment. You may begin to shower 3 days after surgery (this allows the glue to cramer well). However, please avoid scrubbing the incision site or peeling off any of the skin glue. This will ensure optimal healing of your incision. Also, during this time avoid soaking the incision area in water - this includes swimming pools, hot tubs or baths. No ointments, lotions or oils on the incision until your surgeon allows. Leave kaleb, sutures or glue in place. Neurological dysfunction that comes on suddenly can also be a sign of a stroke. Below some common symptoms of a stroke are listed: B - balance difficulty such as sudden onset walking or leaning to one side - NEW E - eye problem such as sudden double vision or trouble seeing on one side - NEW F - Facial weakness or numbness on one side - NEW A - Arm or leg weakness or numbness on one side - NEW S - Slurred speech or difficulty with word finding - NEW T - Time is BRAIN! Call 911 as soon as you recognize these symptoms Diet: Consume a regular diet rich in vegetables and lean protein such as chicken or fish. You should consume in a ratio of approximately 20% fats|40% carbohydrates|40%protein. Vegetables, sweet potatoes, brown rice or quinoa are examples of good carbohydrates. Chips, white bread, cookies and sweets/sugar are examples of bad carbohydrates. Limit your bad carbs, go wild with good carbs. "Life's Simple 7" Guidelines as per [place] [employer] These will help you reclaim your life after surgery and tombstone erector helper in your recovery, keeping in mind your restrictions. (1) Get Active. Physical activity can help people lose weight, control high blood pressure and cholesterol, feel emotionally better, and sleep better. (2) Control Cholesterol. Avoid a diet high in saturated fat, trans fat, & cholesterol. Limit whole milk & cream, ice cream, butter, egg yolks, processed meats (like sausage and hot dogs), and fatty meats. Choose healthy foods that are low in saturated fat, trans fat and cholesterol which include: Fruits and vegetables, fiber rich grain products (like whole grain pasta and brown rice), lean meat such as chicken, fish, nuts, seeds, and legumes. (3) Eat Better. Eat small portions. Shop at the grocery with a list and do not stray from it. Tips for a healthy diet include: Limit sodium intake to less than 1500mg daily, avoid prepackaged, processed, and fast foods, choose a diet rich in fruits, vegetables, and whole grain, high fiber foods, and limit saturated & cholesterol in your diet. (4) Manage Blood Pressure. If you have high blood pressure, you should have a cuff at home so that you can check your blood pressure regularly. Be sure you have a good cuff. An arm one is generally better than a wrist one. Bring the cuff to a doctor's appointment to validate that the measurements that your cuff are taking are accurate. Take your blood pressure twice daily when you are sitting down and relaxing. Record the numbers in a log and bring this log with you to your doctors' appointments. (5) Lose Weight if your BMI is above 25. A healthy BMI is between 19-25. To calculate Your BMI, you may use a Standard BMI Calculator on the NIH BMI website: <www.nhlbi.nih.gov/guidelines/obesity/BMI/bmicalc.htm>. Weigh oneself daily. If you are overweight, set a goal to lose weight. A pound a week loss if needed is a good target. (6) Reduce Blood Sugar. Limit foods and liquids with "added sugars." (Added sugars include sucrose, fructose, glucose, maltose, dextrose, high fructose corn syrup, corn syrup, concentrated fruit juice and honey). (7) Stop Smoking. If you smoke, quitting smoking is one of the best things that you can do for your health. Smoking increases your risk of heart attack, stroke, and peripheral vascular disease, which is a build-up of plaque in your arteries. Please discard all the cigarettes and lighters in your house. Have a plan for what you will do when you have the urge to smoke. Direct and second- hand smoke shortens your life as well as the lives of your family, friends and others around you. For your health and the health of those around you, please consider quitting! Proper Bending Body Mechanics: Maintain a wide stance with one foot slightly in front of the other. Keep your back straight. Bend utilizing the strength in your hips and knees. Do not bend at the waist. Maintain the lifted object at your waist-level close to your body. Avoid lifting weight that causes immediately pain or pain anywhere in the body afterwards. Smoking/Nicotine If there was ever one thing that you could do to increase your overall health, decrease your risk of cardiovascular problems by about 39% the second you make t he choice, it is to STOP SMOKING. Your body's most instant gratification is the second you stop smoking. We have all heard the studies, read the articles but it is true, smoking is extremely bad for your overall health, and moreover it is detrimental to your bone health. Nicotine, IN ANY FORM, kills bone cells, prevents your body from healing fractures, and significantly prolongs healing after surgery. In spine surgery specifically, it increases your risk of not healing your bones to create a fusion and increases your risk of having a revision surgery due to this up to 60%. I know it is hard. I know it feels impossible. But there are ways. Take control of your life. We are here to help you through it. And when you are ready, ask us and we can direct you to help if you desire. Use the START Plan to Quit Smoking (please visit the Helpguide.org website listed below for more information): S = Set a quit date. Choose a date within the next 2 weeks, so you have enough time to prepare without losing your motivation to quit. If you mainly smoke at work, quit on the weekend, so you have a few days to adjust to the change. T = Tell family, friends, and co-workers that you plan to quit. Let your friends and family in on your plan to quit smoking and tell them you need their support and encouragement to stop. Look for a quit jaiden who wants to stop smoking as well. You can help each other get through the rough times. A = Anticipate and plan for the challenges you'll face while quitting. Most people who begin smoking again do so within the first 3 months. You can help yourself make it through by preparing ahead for common challenges, such as nicotine withdrawal and cigarette cravings. R = Remove cigarettes and other tobacco products from your home, car, and work. Throw away all your cigarettes (no emergency pack!), lighters, ashtrays, and matches. Wash your clothes and freshen up anything that smells like smoke. Shampoo your car, clean your drapes and carpet, and steam your furniture. T = Talk to your doctor about getting help to quit. Your doctor can prescribe medication to help with withdrawal and suggest other alternatives. If you can't see a doctor, you can get many products over the counter at your local pharmacy or grocery store, including the nicotine patch, nicotine lozenges, and nicotine gum. Resources for Quitting Smoking: <https://www.[place].gov/documents/[facility]/Quit_Tobacco_Resources_for_patients_313 480_7.pdf> Supplementation: Take recommended dosages of Vitamin D and Calcium to help fortify your bones and help them to heal. See your health maintenance packet for dosages and recommended levels. DVT/VTE prophylaxis: You will be given compression stockings from the hospital. Wear these daily for the first two weeks after surgery. You may take them off at night. You may be prescribed a medication to help thin your blood. Take this as directed. If you are not prescribed this medication, early and frequent ambulation has been shown to be the best prophylaxis to deep vein thrombosis and sequelae related to this event. Patient is going to ECF activity as tolerated with restrictions per orthopedics Follow-up with orthopedics outpatient as scheduled Follow-up regarding your left knee outpatient after discharge Continue with current medications as prescribed Repeat CBC, CMP, magnesium in 2-3 days continue with PICC line and IV antibiotics per ID recommendations in the form of cefazolin every 8 hours for the next 6 weeks Continue monitoring Accu-Cheks before meals and at bedtime and continue with sliding scale NovoLog sliding scale 0-150 equals 0 units 151-200 equals 2 units 201-250 equals 4 units 251-300 equals 6 units 301-350 equals 8 units 351-400 equals 10 units Please notify provider if blood sugar is 400 or above Continue to elevate lower extremities while at rest Follow-up with GI outpatient Follow-up with infectious disease outpatient in 1-2 weeks Discharge Disposition: TRANSFER TO SNF/ECF
[2023-05-07 14:10] VITALS: BP 141/74; PULSE 107; RESP 18; TEMP 98.5
--- NOTE | 2023-05-07 14:44 | P.PN ---
Subjective Progress Note Date: 05/07/23 05/03/2023, patient is postop day #4 following T11-L3 decompression of an epidural abscess. The patient was on a mechanical ventilator and the patient was extubated on 04/30/2023 and the patient is currently on room air oxygen. The patient also has multiple other comorbidities. The patient had streptococcal septicemia related to an infected septic left knee. The patient has liver cirrhosis, diabetes mellitus, hypertension hyperlipidemia and gout and previous history of chronic alcohol use. Currently hemodynamically stable. The patient is currently on room air oxygen and not having any major respiratory difficulties. The blood cultures. The patient is currently on IV cefazolin. The left knee cultures have revealed no growth. Overall fluid was also negative. Blood culture was also negative. During the course of her illness, the patient received a total of 2 units of packed RBC and hemoglobin is stable for now. The patient continues to have abdominal distention secondary to ascites and liver cirrhosis. A consultation was placed for interventional radiology to undergo a paracentesis. He continues to have issues related to pain. Unable to ambulate. Physical therapy has been able to put him on a chair for brief period of time. Using incentive spirometer. On today's evaluation of 05/04/2023, the patient is postop day #5. The patient doing well and he is able to sit up on a chair. He remains on IV cefazolin. No significant ascites was noted. The patient was given laxatives and the patient had a large bowel movement. Abdomen is less distended on today's evaluation. He continues to receive Lasix 40 mg IV every 12 hours. Rest of the medications remain unchanged.No altered mentation. No chest pain. He is using the incentive spirometer. On 05/05/2023, the patient is postop day #6. The patient doing well. No specific complaints. The patient will hopefully obtain a PICC line for IV antibiotics and the patient is current on IV cefazolin. Labs are all stable. The white cell count of 7.5, hemoglobin was 8.4, B is a 30 with a creatinine of 0.6 and a sodium levels of 137. He does have some coagulopathy related to liver cirrhosis. INR is at 1.5 with a PT of 15.3. The patient denies having any abdominal pain. No nausea or vomiting. He is having bowel movements. He had a low-grade temperature. He remains on antibiotics. No other significant issues overnight. The patient is taking full liquid diet for nodule surgery is also on the case. On 05/06/2023, the patient continues to have some issues with abdominal distention. Abdominal pain. He is having bowel movements and is passing also flatness. Is running a low-grade fever. No respiratory difficulties. No respiratory distress. He is currently on full liquid diet and this will be adva nced slowly. Patient is being monitored by general surgery. No surgical intervention and the patient is going to use laxatives and stool softeners. INR is 1.8 with a PT of 18.4. Electrolytes are all stable with a BUN of 10 and a creatinine of 0.6. Patient is currently on room air oxygen with a pulse ox of 95%. He has a back brace that he is utilizing. On 05/07/2023, no new complaints and the patient is resting comfortably in bed. Is taking clear liquid diet. Is also passing bowel movements essentially liquidy bowel movement and the patient is currently on a combination of laxatives including lactulose. PICC line was inserted and the patient was IV Cefazolin. Abdomen Is Slightly Distended and Tympanic. A flat film of the abdomen was done yesterday showed small bowel loops in the right side of the abdomen distended up to 3.9 cm in size. The patient remains on room air oxygen. The patient is post abdominal 8 following given a compression of the epidural abscess. Objective - Vital Signs Vital signs: Vital Signs Temp 99.5 F 05/07/23 06:53 Pulse 105 H 05/07/23 06:53 Resp 16 05/07/23 06:53 BP 136/78 05/07/23 06:53 Pulse Ox 96 05/07/23 06:53 FiO2 40 04/30/23 13:43 Intake & Output 05/06/23 05/07/23 05/07/23 18:59 06:59 18:59 Intake Total 450 480 Output Total 250 100 Balance 200 380 Intake: Intake, IV Titration 450 Amount Dextrose 5%-0.9% NaCl 1, 400 000 ml @ 50 mls/hr IV . Q20H MARIO Rx#:[id number] ceFAZolin 2 gm In Sodium 50 Chloride 0.9% 50 ml @ 100 mls/hr IVPB Q8HR MARIO Rx# :[id number] Oral 480 Output: Urine 250 100 Other: Voiding Method Toilet Urinal # Voids 3 1 # Bowel Movements 1 ABP, PAP, CO, CI - Last Documented Arterial Blood Pressure 146/54 - Exam GENERAL EXAM: Alert, pleasant 67-year-old male, on room air, fairly comfortable in no apparent distress. HEAD: Normocephalic. EYES: Normal reaction of pupils, equal size. NOSE: Clear with pink turbinates. THROAT: No erythema or exudates. NECK: No masses, no JVD. CHEST: No chest wall deformity. LUNGS: Equal air entry with no crackles, wheeze, rhonchi or dullness. CVS: S1 and S2 normal with no audible murmur, regular rhythm. ABDOMEN: Distended No hepatosplenomegaly, normal bowel sounds, no guarding or rigidity. SPINE: Surgical dressing dry and intact. Drain remains in place. SKIN: No rashes CENTRAL NERVOUS SYSTEM: No focal deficits, tone is normal in all 4 extremities. EXTREMITIES: There is 1-2+ peripheral edema. No clubbing, no cyanosis. Peripheral pulses are intact. - Labs CBC & Chem 7: 05/05/23 05:27 05/07/23 05:40 Labs: Abnormal Lab Results - Last 24 Hours (Table) 05/06/23 05/06/23 05/06/23 Range/Units 06:50 10:06 11:22 PT 18.4 H (10.0-12.5) sec INR 1.8 H (<1.2) APTT 31.0 H (22.0-30.0) sec Sodium (137-145) mmol/L Potassium 3.3 L (3.5-5.5) mmol/L Carbon Dioxide 21.4 L (21.6-31.8) mmol/L Creatinine (0.66-1.25) mg/dL Glucose 122 H (70-110) mg/dL POC Glucose (mg/dL) 145 H (70-110) mg/dL Calcium 8.6 L (8.7-10.3) mg/dL Magnesium (1.6-2.3) mg/dL 05/06/23 05/06/23 05/07/23 Range/Units 16:28 20:41 05:40 PT (10.0-12.5) sec INR (<1.2) APTT (22.0-30.0) sec Sodium 133 L (137-145) mmol/L Potassium 3.0 L (3.5-5.5) mmol/L Carbon Dioxide 21 L (21.6-31.8) mmol/L Creatinine 0.53 L (0.66-1.25) mg/dL Glucose 103 H (70-110) mg/dL POC Glucose (mg/dL) 117 H 128 H (70-110) mg/dL Calcium (8.7-10.3) mg/dL Magnesium 1.5 L (1.6-2.3) mg/dL 05/07/23 Range/Units 05:44 PT (10.0-12.5) sec INR (<1.2) APTT (22.0-30.0) sec Sodium (137-145) mmol/L Potassium (3.5-5.5) mmol/L Carbon Dioxide (21.6-31.8) mmol/L Creatinine (0.66-1.25) mg/dL Glucose (70-110) mg/dL POC Glucose (mg/dL) 117 H (70-110) mg/dL Calcium (8.7-10.3) mg/dL Magnesium (1.6-2.3) mg/dL Assessment and Plan Plan: Assessment Postop day # 8 following T11-L3 decompression of the epidural abscess. Patient is currently on IV cefazolin. PICC line was inserted for long-term antibiotic therapy Sepsis source thought to be infection of the left knee prosthesis status post arthrocentesis of the left knee Septic left knee infection Streptococcal agalactiae, bacteremia Liver cirrhosis with ascites and history of esophageal varices Abdominal distention/ascites secondary to liver cirrhosis, and the patient was not found to have significant ascites and the patient was given laxatives with improvement in his abdominal distention, he may have also a component of ileus in addition. Ileus Diabetes mellitus type 2 Previous history of left total knee arthroplasty Hypertension Hyperlipidemia Gout Alcoholism Plan Pulmonary status is stable. Continue using incentive spirometer Continue IV cefazolin PICC line was inserted Continue IV Lasix 40 milligrams every 12 hours and the patient remains in negative fluid balance No significant ascites for paracentesis and the patient was given laxatives and he continues to have some ongoing abdominal distention. Utilizing stool softeners. That'll be advanced gradually. Gradually advance diet as tolerated Blood work in the electrolytes are all stable Encourage use of incentive spirometer Patient is currently on room air oxygen Overall rest or status is stable.
--- NOTE | 2023-05-07 15:06 | P.PN ---
Subjective Progress Note Date: 05/07/23 Principal diagnosis: Reason for follow-up with Streptococcus bacteremia and concern for possible left knee septic arthritis Patient is a 67-year-old male with a past medical history significant for chronic alcoholism cirrhosis diabetes mellitus reflux in this patient who did have a left knee arthroplasty done by Dr. Bishop patient recently presented to [facility] about a week ago for evaluation of fever patient did have Streptococcus agalactiae bacteremia and the patient was noticed to have some swelling to the left knee s/p aspirate with a white count of 20,000 concerning for septic need for the patient was transferred to [facility] to be evaluated by his orthopedic surgeon.Patient did have an MRI of the lumbar spine suspicious for epidural abscess from T12-L2 and possible discitis L1-L2 MRI cervical spine no epidural abscess MRI thoracic spine tissues extension of the abscess to the T11 vertebra. Patient is status post laminectomy and drainage of the epidural abscess and implant of rods and screws life spine provide left cage, procedure completed on 04/29/2023. On today's evaluation that is 05/07/2023, the patient remains to be afebrile, the patient is breathing comfortably on room air, the patient denies any chest pain shortness of breath or cough patient denies having any nausea no vomiting did not have any abdominal pain no diarrhea has been reported Patient white count 7.45 as of 05/05/2023, creatinine 0.53, OR cultures negative Objective - Vital Signs Vital signs: Vital Signs Temp 99.5 F 05/07/23 06:53 Pulse 105 H 05/07/23 06:53 Resp 16 05/07/23 06:53 BP 136/78 05/07/23 06:53 Pulse Ox 96 05/07/23 06:53 FiO2 40 04/30/23 13:43 Intake & Output 05/06/23 05/07/23 05/07/23 18:59 06:59 18:59 Intake Total 450 480 Output Total 250 100 Balance 200 380 Intake: Intake, IV Titration 450 Amount Dextrose 5%-0.9% NaCl 1, 400 000 ml @ 50 mls/hr IV . Q20H MARIO Rx#:[id number] ceFAZolin 2 gm In Sodium 50 Chloride 0.9% 50 ml @ 100 mls/hr IVPB Q8HR MARIO Rx# :[id number] Oral 480 Output: Urine 250 100 Other: Voiding Method Toilet Urinal # Voids 3 1 # Bowel Movements 1 ABP, PAP, CO, CI - Last Documented Arterial Blood Pressure 146/54 - Exam GENERAL DESCRIPTION: An elderly male lying in bed RESPIRATORY SYSTEM: Unlabored breathing , decreased breath sounds at bases HEART: S1 S2 regular rate and rhythm , ABDOMEN: Soft , no tenderness EXTREMITIES: No edema feet - Labs CBC & Chem 7: 05/05/23 05:27 05/07/23 05:40 Labs: Abnormal Lab Results - Last 24 Hours (Table) 05/06/23 05/06/23 05/06/23 Range/Units 06:50 10:06 11:22 PT 18.4 H (10.0-12.5) sec INR 1.8 H (<1.2) APTT 31.0 H (22.0-30.0) sec Sodium (137-145) mmol/L Potassium 3.3 L (3.5-5.5) mmol/L Carbon Dioxide 21.4 L (21.6-31.8) mmol/L Creatinine (0.66-1.25) mg/dL Glucose 122 H (70-110) mg/dL POC Glucose (mg/dL) 145 H (70-110) mg/dL Calcium 8.6 L (8.7-10.3) mg/dL Magnesium (1.6-2.3) mg/dL 05/06/23 05/06/23 05/07/23 Range/Units 16:28 20:41 05:40 PT (10.0-12.5) sec INR (<1.2) APTT (22.0-30.0) sec Sodium 133 L (137-145) mmol/L Potassium 3.0 L (3.5-5.5) mmol/L Carbon Dioxide 21 L (21.6-31.8) mmol/L Creatinine 0.53 L (0.66-1.25) mg/dL Glucose 103 H (70-110) mg/dL POC Glucose (mg/dL) 117 H 128 H (70-110) mg/dL Calcium (8.7-10.3) mg/dL Magnesium 1.5 L (1.6-2.3) mg/dL 05/07/23 Range/Units 05:44 PT (10.0-12.5) sec INR (<1.2) APTT (22.0-30.0) sec Sodium (137-145) mmol/L Potassium (3.5-5.5) mmol/L Carbon Dioxide (21.6-31.8) mmol/L Creatinine (0.66-1.25) mg/dL Glucose (70-110) mg/dL POC Glucose (mg/dL) 117 H (70-110) mg/dL Calcium (8.7-10.3) mg/dL Magnesium (1.6-2.3) mg/dL Assessment and Plan (1) Allergy to sulfa drugs Current Visit: Yes Status: Acute Code(s): Z88.2 - ALLERGY STATUS TO SULFONAMIDES SNOMED Code(s): 96192806 (2) Bacteremia due to Streptococcus Current Visit: Yes Status: Acute Code(s): R78.81 - BACTEREMIA; B95.5 - UNSP STREPTOCOCCUS THE CAUSE OF DISEASES CLASSD [facility] SNOMED Code(s): 046574091204 (3) Septic arthritis of knee, left Current Visit: Yes Status: Acute Code(s): M00.9 - PYOGENIC ARTHRITIS, UNSPECIFIED SNOMED Code(s): 441631230 (4) Abscess in epidural space of lumbar spine Current Visit: Yes Status: Acute Code(s): G06.1 - INTRASPINAL ABSCESS AND GRANULOMA SNOMED Code(s): 022876824 (5) Discitis of lumbar region Current Visit: Yes Status: Acute Code(s): M46.46 - DISCITIS, UNSPECIFIED, LUMBAR REGION SNOMED Code(s): 139402158 Plan: 1patient presented to hospital with weakness fever did have Streptococcus aga lactiae bacteremia in this patient who did have a significant swelling to the left knee along with the stiffness with aspiration of the left knee cell count more than 20,000 white cell high clinical suspicious for septic arthritis likely related to streptococci 2- -blood cultures repeat has been negative 3patient did have an MRI of the lumbar spine suspicious for epidural abscess from T12-L2 and possible discitis L1-L2, MRI of the cervical spine was negative for any epidural abscess MRI of the thoracic spine did show extension of the abscess to T11 vertebra, the patient status post drainage of the epidural abscess along with laminectomy and hardware placement on 04/29/2023, OR cultures so far negative 4-patient is afebrile and white count has normalized, patient did have a PICC line placement this morning 5patient will continue on cefazolin to finish 6-week course of therapy with weekly monitoring of CRP and sed rate and close outpatient follow-up Dictation was produced using [employer] dictation software. please excuse any grammatical, word or spelling errors. Time with Patient: Less than 30
--- NOTE | 2023-05-10 18:27 | CDI ---
Documentation Clarification Form Date: 05/10/2023 06:10:20 PM From: Kimberly Smith Phone: Admit Date: 04/22/2023 08:00:00 PM Patient Name: Dion Kennedy Visit Number: [id number] Discharge Date: 05/07/2023 03:21:00 PM ATTENTION: The Clinical Documentation Specialists (CDI) and [facility] Coding Staff appreciate your assistance in clarifying documentation. Please respond to the clarification below the line at the bottom and electronically sign. The CDI & [facility] Coding staff will review the response and follow-up if needed. Please note: Queries are made part of the Legal Health Record. If you have any questions, please contact the author of this message via ITS. Dr. Rosario Tipton Unspecified anemia is documented H&P Note. Additional specificity regarding the type and acuity of anemia is requested. History/Risk Factors: 67yo M, Osteomyelitis of lumbar sp fusion/decompression, Spinal stenosis L/LS, Step B sepsis, epidural abscess, infection in prosthetic Lt knee, EHOT cirrhosis/portal HTN, DMII, 2 degree hemorrhoids Clinical indicators: Hgb: 04/23 8.1 04/26 9.5 04/29 9- 10.4 04/30 11.0 Hct: 04/23 25.4 04/26 29.5 04/29 27.4- 31.1 04/30 27.4-33.2 Treatment: 2u PRBC Please clarify the type and acuity of anemia: [ ] Acute blood loss anemia [ ] Acute on chronic blood loss anemia [ ] Chronic blood loss anemia [ ] Iron deficiency anemia [x ] Unable to determine [ ] Other, please specify (Template Last Revised: May 2020) MTDD
--- NOTE | 2023-05-10 18:38 | CDI ---
Documentation Clarification Form Date: 05/10/2023 06:28:00 PM From: Kimberly Smith Phone: Admit Date: 04/22/2023 08:00:00 PM Patient Name: Dion Kennedy Visit Number: [id number] Discharge Date: 05/07/2023 03:21:00 PM ATTENTION: The Clinical Documentation Specialists (CDI) and [facility] Coding Staff appreciate your assistance in clarifying documentation. Please respond to the clarification below the line at the bottom and electronically sign. The CDI & [facility] Coding staff will review the response and follow-up if needed. Please note: Queries are made part of the Legal Health Record. If you have any questions, please contact the author of this message via ITS. Dr. Rosario Tipton Diabetes is documented per H&P Note. Additional specificity regarding the diabetes diagnosis is requested. History/Risk Factors: 67yo M, Osteomyelitis of lumbar sp fusion/decompression, Spinal stenosis L/LS, Step B sepsis, epidural abscess, infection in prosthetic Lt knee, EHOT cirrhosis/portal HTN, DMII, 2 degree hemorrhoids Clinical Indicators: A1C: 6.9 Glucose: 04/23 122-138 04/24 121-186 04/25 114-168 04/26 124-191 Treatment: continue on accuchecks achs and sliding scale insulin. Please clarify the type of diabetes, if known: [ x ] Diabetes Type 2 with hyperglycemia [ ] Other, please specify [ ] Unable to Determine (Template Last Revised: June 2020) MTDD
--- NOTE | 2023-05-10 19:03 | CDI ---
Documentation Clarification Form Date: 05/10/2023 06:39:00 PM From: Kimberly Smith Phone: Admit Date: 04/22/2023 08:00:00 PM Patient Name: Dion Kennedy Visit Number: [id number] Discharge Date: 05/07/2023 03:21:00 PM ATTENTION: The Clinical Documentation Specialists (CDI) and [facility] Coding Staff appreciate your assistance in clarifying documentation. Please respond to the clarification below the line at the bottom and electronically sign. The CDI & [facility] Coding staff will review the response and follow-up if needed. Please note: Queries are made part of the Legal Health Record. If you have any questions, please contact the author of this message via ITS. Dr. Rosario Tipton Respiratory Failure is documented per Consult 04/30 and Progress Note 05/01 which may lack sufficient clinical evidence/support in the medical record. Additional clarification is requested. Patient history/risk factors: 67yo M, Osteomyelitis of lumbar sp fusion/decompression, Spinal stenosis L/LS, Step B sepsis, epidural abscess, infection in prosthetic Lt knee, ETOH cirrhosis/portal HTN, DMII, 2 degree hemorrhoids, anemia Clinical Indicators: Vital signs: 04/29/2421:00 T 97.5 P77 R16 B/P 105/56 Pulse oximetry: [id number] 04/29/23 11:56 [id number] 04/30/23 07:00 Lung/Breathing assessment: mildrespiratory alkalosisand mildmetabolic acidosis ABG pH 7.41 ABG pCO2 33 ABG pO2 121 ABG O2 Saturation 98.7 % Treatment: Pt was extubatedand transferred to ICU in stable condition having tolerated the PRxwith nocomps. OP Note 04/29 Postoperatively patient had to be [re]intubated, he gotextubatedyesterday (04/30), his doing well. O2/Vent/BiPap: We will attempt a dailyinterruptionof sedation, and possibly a spontaneous breathing trial. No additional recommendations are made. 04/30 Is there an additional diagnosis that is clinically appropriate for this patient? [ ] Acute Hypoxic Respiratory Failure [ ] Acute Hypercapnic Respiratory Failure [ ] Acute on Chronic Respiratory Failure [ ] Chronic Respiratory Failure [ ] Acute Respiratory Distress [ ] Acute Respiratory Insufficiency [ x] Other Diagnosis, please specify __No rep failure___ [ ] Unable to determine (Template Last Revised: April 2023) MTDD
--- NOTE | 2023-05-12 12:03 | CDI ---
Documentation Clarification Form Date: 05/12/2023 11:12:40 AM From: Loli Ahn RN CCDS Phone: [phone] Admit Date: 04/22/2023 08:00:00 PM Patient Name: Dion Kennedy Visit Number: [id number] Discharge Date: 05/07/2023 03:21:00 PM ATTENTION: The Clinical Documentation Specialists (CDI) and [facility] Coding Staff appreciate your assistance in clarifying documentation. Please respond to the clarification below the line at the bottom and electronically sign. The CDI & [facility] Coding staff will review the response and follow-up if needed. Please note: Queries are made part of the Legal Health Record. If you have any questions, please contact the author of this message via ITS. Dr. Guillaume Narayanan Postoperative ileus is documented 05/06, Medicine note and patient had T11-L3 decompression with epidural phlegmon evacuation and stabilization. Additional clarification is requested regarding the relationship, if any, that exists between the diagnosis and the procedure. Patients Admitting Diagnosis: Lumbar spondylosis with myelopathy (Acute) Sepsis (Acute) Discitis of lumbar region (Acute) Abscess in epidural space of lumbar spine (Acute) Bacteremia due to Streptococcus (Acute) Septic arthritis of knee, left (Acute) Post-Operative Diagnosis: Same as admitting diagnosis Procedure performed: T11-L3 posterior lateral decompression and fusion with epidural phlegmon/abscess evacuation. History/Risk Factors: 67 year old with a medical history of abdominal ascites, liver cirrhosis, chronic alcoholism, DM and GERD. Clinical Indicators: Medicine note, 05/06- GI following with ascites and status post 1.5 L from paracentesis. Patient appears slightly more distended today and abdominal ultrasound shows mild to moderate ascites is. Likely still contributing to postoperative ileus. CT ABD Pelvis, 05/02: Ascites. There may be some mild ileus. No significant fecal debris to suggest constipation ABD US, 05/03: Mild abdominal ascites. ABD US, 05/06: Mild abdominal ascites. More moderate within the right upper quadrant. XR Abdomen, 05/06: Gassy bowel.Small bowel loops in the right side of the abdomen are distended up to 3.9 cm. Given the presence of colonic air, findings probably reflect a postoperative ileus. PARCENTESIS, 04/26: Approximately 1360cc of clear straw colored fluid drained GI note, 05/05: No need for paracentesis, patient with small amount of fluid noted on ultrasound and tympanic abdomen. Treatment: 05/02 05/06 Lactulose 30gm PO Daily, 05/06 Lactulose 30mg PO BID, 05/02 Lasix 40mg IV Q12H, 05/03 Aldactone 50mg PO BID, Consults: GI see above What relationship, if any, exists between the diagnosis of [insert and the procedure: [ ] Postoperative Ileus is a complication of surgical procedure [ ] Postoperative Ileus is related to patients co-morbid condition(s) of [insert co-morbid dxs] & not a complication of the procedure [ ] Other please specify ____ [ ] Unable to determine (Template Last Revised: June 2020) Postoperative Ileus is related to patients co-morbid condition(s) of [insert co-morbid dxs as follows: Liver failure with ascites Obesity Medication regiment Cardiac issues Hx ETOH use abuse and is not necessarily a complication of the procedure MTDD
== END 2023-05-07 15:21 | DRG 453 ==
LOC: 4SSUR 20:00 → 2SICU 04-29 20:26 → 4SSUR 05-01 18:09
PROVIDERS: ADMIT Internal Medicine; ATTEND Internal Medicine
PROC: 0W9G3ZZ Drainage of Peritoneal Cavity, Percutaneous Approach (ICD-10-PCS; 2023-04-26)
PROC: 0SG0071 Fusion of Lumbar Vertebral Joint with Autologous Tissue Substitute, Posterior Approach, Posterior Column, Open Approach (ICD-10-PCS; 2023-04-29)
PROC: 0QH004Z Insertion of Internal Fixation Device into Lumbar Vertebra, Open Approach (ICD-10-PCS; 2023-04-29)
PROC: 00NY0ZZ Release Lumbar Spinal Cord, Open Approach (ICD-10-PCS; 2023-04-29)
PROC: 00NX0ZZ Release Thoracic Spinal Cord, Open Approach (ICD-10-PCS; 2023-04-29)
PROC: 00NY0ZZ Release Lumbar Spinal Cord, Open Approach (ICD-10-PCS; 2023-04-29)
PROC: 0ST20ZZ Resection of Lumbar Vertebral Disc, Open Approach (ICD-10-PCS; 2023-04-29)
PROC: 0QB00ZX Excision of Lumbar Vertebra, Open Approach, Diagnostic (ICD-10-PCS; 2023-04-29)
PROC: 009U0ZZ Drainage of Spinal Canal, Open Approach (ICD-10-PCS; 2023-04-29)
PROC: 8E0WXBZ Computer Assisted Procedure of Trunk Region (ICD-10-PCS; 2023-04-29)
PROC: 30233N1 Transfusion of Nonautologous Red Blood Cells into Peripheral Vein, Percutaneous Approach (ICD-10-PCS; 2023-04-29)
PROC: 0SG00AJ Fusion of Lumbar Vertebral Joint with Interbody Fusion Device, Posterior Approach, Anterior Column, Open Approach (ICD-10-PCS; principal; 2023-04-29 07:30)
PROC: 3E033XZ Introduction of Vasopressor into Peripheral Vein, Percutaneous Approach (ICD-10-PCS; 2023-04-30)
PROC: 0BH18EZ Insertion of Endotracheal Airway into Trachea, Via Natural or Artificial Opening Endoscopic (ICD-10-PCS; 2023-04-30)
PROC: 5A1935Z Respiratory Ventilation, Less than 24 Consecutive Hours (ICD-10-PCS; 2023-04-30)
PROC: 02HV33Z Insertion of Infusion Device into Superior Vena Cava, Percutaneous Approach (ICD-10-PCS; 2023-05-07)
DX: M46.26 Osteomyelitis of vertebra, lumbar region (principal); A40.1 Sepsis due to streptococcus, group B; G06.1 Intraspinal abscess and granuloma; T84.54XA Infection and inflammatory reaction due to internal left knee prosthesis, initial encounter; D68.8 Other specified coagulation defects; K76.6 Portal hypertension; E87.4 Mixed disorder of acid-base balance; M47.16 Other spondylosis with myelopathy, lumbar region; K56.7 Ileus, unspecified; M46.25 Osteomyelitis of vertebra, thoracolumbar region; K70.31 Alcoholic cirrhosis of liver with ascites; E11.69 Type 2 diabetes mellitus with other specified complication; F10.20 Alcohol dependence, uncomplicated; E11.65 Type 2 diabetes mellitus with hyperglycemia; I10 Essential (primary) hypertension; I08.1 Rheumatic disorders of both mitral and tricuspid valves; D64.9 Anemia, unspecified; M43.19 Spondylolisthesis, multiple sites in spine; M48.061 Spinal stenosis, lumbar region without neurogenic claudication; M48.07 Spinal stenosis, lumbosacral region; E87.6 Hypokalemia; M10.9 Gout, unspecified; M25.462 Effusion, left knee; E78.5 Hyperlipidemia, unspecified; K21.9 Gastro-esophageal reflux disease without esophagitis; M17.0 Bilateral primary osteoarthritis of knee; E83.42 Hypomagnesemia; K64.1 Second degree hemorrhoids; R15.9 Full incontinence of feces; K64.9 Unspecified hemorrhoids; Y79.2 Prosthetic and other implants, materials and accessory orthopedic devices associated with adverse incidents; Z85.01 Personal history of malignant neoplasm of esophagus; Z86.61 Personal history of infections of the central nervous system; Z87.19 Personal history of other diseases of the digestive system; Z87.891 Personal history of nicotine dependence; Z88.2 Allergy status to sulfonamides; Z79.899 Other long term (current) drug therapy; Z79.82 Long term (current) use of aspirin; Z82.49 Family history of ischemic heart disease and other diseases of the circulatory system
CPT/HCPCS: 36573; 49083; 71045; 72100; 72131; 72156; 72157; 72158; 74022; 74178; 76705; 80048; 80053; 82140; 82150; 82805; 82945; 83615; 83735; 84157; 85025; 85027; 85610; 85652; 85730; 86140; 86850; 86900; 86901; 86920; 87040; 87070; 87075; 87102; 87116; 87205; 87206; 88307; 88311; 89050; 89060; 94002; 94003; 94640; 94760

== ENCOUNTER → 2023-06-04 | Day surgery (SDC) | payer MEDICARE, BC ==
[2023-06-03 08:50] VITALS: BMI 26.2
[~2023-06-04] MED LIST changes: +ALBUMIN HUMAN 5% 250 ML in EMPTY BAG 1 BAG IVPB STA; +GLYCOPYRROLATE 0.2 MG/ML 2 ML VIAL ONE; +HYDROmorphone (PF) 1 MG/ML ONE; -LACTATED RINGERS 1,000 ML IV SCH; -LIDOCAINE 1% (10MG/ML) FOR IV START INTRADERMA PRN; +LIDOCAINE 1% INJ 10MG/ML (20 ML MDV) ONE; +METOCLOPRAMIDE 5 MG/ML 2 ML VIAL IVP PRN; +MIDAZOLAM 2 MG/2 ML VIAL ONE; +NEOSTIGMINE 1 MG/ML 10 ML VIAL ONE; +PHENYLEPHRINE-0.9% NACL SYG 1,000 MCG/10 ML SYRINGE ONE; +Pre Op ABX Message 1 EACH MISC MISCELLANE ONE; +ROCURONIUM 10 MG/ML (5 ML VIAL) IV ONE; +SUCCINYLCHOLINE CHLORIDE 200 MG/10 ML VIAL IV ONE; +TRANEXAMIC 1,000 MG/100ML-NACL 1,000 MG in SALINE 1 100ML.BAG IVPB PRN; +TRANEXAMIC 1,000 MG/100ML-NACL PREMIX BAG ONE; +fentaNYL (PF) 50 MCG/ML 2 ML AMP ONE
--- NOTE | 2023-06-04 06:40 | P.HPOR ---
History of Present Illness H&P Date: 05/20/23 .D:Date: 05/20/23 : 11:54am .T:Title: H&P DOI: Chronic DOS: 04/29/2023 PO week/yr: 3 weeks VAS: 6 OCCUPATION: Retired IMPRESSION: 1. s/p epidural abscess evacuation 2. s/p T10-L4 stabilization and fusion 3. Wound ulceration, delayed healing PLAN: - Continue to progress activity as tolerated. Limit BLTPP to less than 20 lbs. - The patient's incision was cleaned and steri strips were applied during today's in office appointment. Avoid submerging incision. - PT twice a week for 6 weeks to begin. - Ice for pain and swelling control. - Discontinue use of LSO brace. - Take medications as directed. - Ambulate daily. - PT/OT daily. FOLLOW UP: surgical debridement of wound with revision closure due to ulceration of wound edges. SUBJECTIVE: The patient returns to the office today approximately 3 weeks following his T10- L4 stabilization and fusion. The patient reports experiencing a continued ache- like, tabbing pain throughout the low back. He reports complete resolution of preoperative lower extremity pain, numbness, and tingling. He states that his lumbar pain has mildly improved since the time of surgery. He states his symptoms worsen when going from a seated to standing position or after prolonged sitting. He notes mild tenderness, swelling, and pain around his incisional area. He denies any significant drainage from the incision at this time. The patient states his current symptoms are mildly managed with rest and medication. The patient is currently taking Tramadol with relief of his symptoms. The patient has also trialed physical therapy at is rehabilitation facility with mild relief and improvement to his overall strength and range of motion. The patient wears the LSO brace daily with mild relief. Otherwise patient is very pleased with their progress since the time of their procedure and denies any f/c/sob/cp, perineal numbness and tingling, bowel or bladder incontinence/retention, and is ambulatingwith the use of a wheelchair today. The patients' past social, medical, family, surgical history, as well as review of systems, have been reviewed. Please refer to the Neurosurgery History and Physical form that has been scanned in to our electronic medical record system. 16 points review of systems completed and as stated in HPI, all other systems reviewed are negative. RADIOGRAPHS: No new x-rays in office today. Please see previous notes. PHYSICAL EXAM: AOX3, NAD, Appears well nourished and well hydrated. Overall alignment well maintained at this time in the sagittal and coronal planes Incision: there is presence of would ulceration with delayed healing likey due to pressure sores on wound. Pt states he is not being turned at rehab and that he continues to lay on his back for extended periods of time. At one point he was left in his TLSO as well which caused him a lot of pain on his wound despite explicit instructions not to sleep in the brace or lay down in the brace. - The patient's incision was cleaned and steri strips were applied. TTP: Minor around incision site. FROM all major joints without restriction or pain 4-/5 BUE all major muscle groups. -deconditionied. no focal deficits 4-/5 BLE all major muscle groups -deconditionined, sick patient. No focal deficits SILT C3-T1 and L2-S1 Reflexes 1/4 all UE and LE b/l Berg's: NEG Clonus: NEG Babinski: NEG Travis's: NEG No tensioning signs CN II-XII grossly intact 2/4 Distal pulses all 4 ext, no edema Compartments soft and compressive Abdomen soft, NTTP Respirations normal, non labored PATIENT EDUCATION: Medications Reviewed: YES In our visit today Mr. Brent SANTO and I have had a chance to go over my understanding of the patient's current condition, the natural course history without intervention and various interventional options. Questions were invited and answered, and the patient wishes to proceed as outlined above. I will be sure to keep you updated after Mr. Brent SANTO returns here for further follow-up. Thank you again for your referral. Please do not hesitate to contact me if you have any further questions. Signed and authenticated by: Guillaume Rucker [facility] [address] [place] [address] [place] [address] [address] This message is confidential, intended only for the named recipient(s) and may contain information that is privileged or exempt from disclosure under applicable law. If you are not the intended recipient(s), you are notified that the dissemination, distribution or copying of this information is strictly prohibited. If you received this message in error, please notify the sender then delete this message. # SIGNED BY Guillaume Narayanan (CLIF)05/25/2023 08:30AM Past Medical History Past Medical History: Diabetes Mellitus, GERD/Reflux, Hyperlipidemia, Hypertension, Osteoarthritis (OA) Additional Past Medical History / Comment(s): Poor healing incision from back surgery about 6 weeks ago. ANEMIA. GOUT. LOWER BACK PAIN. HX OF COLON POLYP. HX ESOPHAGEAL VARICES WITH BANDING. History of Any Multi-Drug Resistant Organisms: None Reported Past Surgical History: Back Surgery, Cholecystectomy, Joint Replacement, Orthopedic Surgery Additional Past Surgical History / Comment(s): Surgery for deviated septum, bilateral cataracts removed, right knee arthroscopy, wisdom teeth removed, EGD with ESOPHAGEAL BANDS at [place], COLONOSCOPIES, left knee replacement secondary back surgery due to poor wound healing, PICC Line insertion. Past Anesthesia/Blood Transfusion Reactions: No Reported Reaction Additional Past Anesthesia/Blood Transfusion Reaction / Comment(s): Woke up once when IV infiltrated during EGD. Past Psychological History: No Psychological Hx Reported Smoking Status: Former smoker Past Alcohol Use History: Occasional Additional Past Alcohol Use History / Comment(s): STARTED SMOKING AT AGE 18, QUIT AT AGE 22, SMOKED 1/2 PPD. Past Drug Use History: None Reported - Past Family History Mother Family Medical History: No Reported History Medications and Allergies Home Medications Medication Instructions Recorded Confirmed Type Colesevelam [Welchol] 1,875 tab PO AC-SUPPER 09/18/14 06/03/23 History allopurinoL [Zyloprim] 300 mg PO DAILY 09/18/14 06/03/23 History Omeprazole 20 mg PO BID 03/07/21 06/03/23 History Losartan Potassium 50 mg PO BID 10/10/21 06/03/23 History atenoloL [Tenormin] 50 mg PO DAILY 10/10/21 06/03/23 History Ascorbic Acid [Vitamin C] 1,000 mg PO DAILY 01/28/23 06/03/23 History Aspirin [Adult Low Dose Aspirin EC] 81 mg PO DAILY 01/28/23 06/03/23 History Cholecalciferol [Vitamin D3 (25 50 mcg PO DAILY 04/22/23 06/03/23 History Mcg = 1000 Iu)] Acetaminophen Tab [Tylenol] 650 mg PO Q6HR PRN tab 05/07/23 06/03/23 Rx Heparin Sodium,Porcine (1 ml) 5,000 unit SQ Q12HR each 05/07/23 06/03/23 Rx [Heparin Sodium] Magnesium Oxide [Mag-Ox] 400 mg PO BID tab 05/07/23 06/03/23 Rx Potassium Chloride [K-Tab ER] 20 meq PO BID #60 tab 05/07/23 06/03/23 Rx Sennosides-Docusate Sodium 2 each PO DAILY tab 05/07/23 06/03/23 Rx [Senokot-S] Spironolactone [Aldactone] 50 mg PO BID tab 05/07/23 06/03/23 Rx ceFAZolin [Kefzol] 2,000 mg IVPB Q8HR 42 Days #126 05/07/23 06/03/23 Rx each traMADol HCl [Ultram] 50 mg PO QID PRN #6 tab 05/07/23 06/03/23 Rx Ferrous Sulfate [Feosol] 325 mg PO DAILY 06/03/23 06/03/23 History Furosemide [Lasix] 40 mg PO DAILY 06/03/23 06/03/23 History Furosemide [Lasix] 80 mg PO DAILY 06/03/23 06/03/23 History Glucerna Shake 1 can PO TID 06/03/23 06/03/23 History Ipratropium Nebulized [Atrovent 1 ml INHALATION QID PRN 06/03/23 06/03/23 History Nebulized 0.2 MG/ML] Lactulose [Cephulac] 30 ml PO BID 06/03/23 06/03/23 History Magnesium Hydroxide [Milk of 30 ml PO DAILY 06/03/23 06/03/23 History Magnesia Concentrate] Magnesium Hydroxide [Milk of 30 ml PO DAILY 06/03/23 06/03/23 History Magnesia] Multivitamin/Iron/Folic Acid 1 each PO DAILY 06/03/23 06/03/23 History [Centrum Adults Tablet] Na Phos,M-B/Na Phos,Di-Ba [Fleet 1 dose RECTAL DIRECTED PRN 06/03/23 06/03/23 History Adult] bisacodyL [Dulcolax] 10 mg RECTAL DAILY PRN 06/03/23 06/03/23 History guaiFENesin SYRUP 100MG/5ML 10 ml PO Q6HR PRN 06/03/23 06/03/23 History [Robitussin] Allergies Allergy/AdvReac Type Severity Reaction Status Date / Time Sulfa (Sulfonamide Allergy Rash/Hives Verified 06/03/23 08:15 Antibiotics) Physical Examination Osteopathic Statement: *. No significant issues noted on an osteopathic structural exam other than those noted in the History and Physical/Consult.
[2023-06-04] MEDS: LACTATED RINGERS 1,000 ML IV SCH (11:22)
[2023-06-04 12:03] LABS: Potassium 4.2 mmol/L (3.5-5.1)
[2023-06-04 12:08] LABS: Anisocytosis Moderate; Basophils % (A) 0 %; Eosinophils % (A) 0 %; HCT 29.5 % (39.0-53.0); HGB 9.5 gm/dL (13.0-17.5); Lymphocytes # (A) 0.8 k/uL (1.0-4.8); Lymphocytes % (A) 16 %; MCH 29.8 pg (25.0-35.0); MCHC 32.2 g/dL (31.0-37.0); MCV 92.8 fL (80.0-100.0); Macrocytosis Slight; Mean Platelet Volume 8.5; Monocytes # (A) 0.4 k/uL (0-1.0); Monocytes % (A) 9 %; Neutrophils # (A) 3.4 k/uL (1.3-7.7); Neutrophils % (A) 71 %; Platelet Count 152 k/uL (150-450); RBC 3.18 m/uL (4.30-5.90); RDW 20.8 % (11.5-15.5); WBC 4.8 k/uL (3.8-10.6)
[2023-06-04] MEDS: GABAPENTIN 300 MG CAP PO PRN (12:12)
[2023-06-04] MEDS: ACETAMINOPHEN TAB 500 MG TAB PO PRN (12:12)
[2023-06-04] MEDS: ONDANSETRON 4 MG/2 ML VIAL IVP PRN (12:12)
[2023-06-04] MEDS: DEXAMETHASONE SOD PHOSPHATE 4 MG/ML 1 ML VIAL IV ONE (12:13)
[2023-06-04 12:17] LABS: Glucose,Whole Blood 97 mg/dL (70-110)
[2023-06-04 12:22] LABS: African American GFR (CKD) >90 (>60 ml/min/1.73 sqM); Anion Gap 6 mmol/L; Blood Urea Nitrogen 8 mg/dL (9-20); Calcium 8.2 mg/dL (8.4-10.2); Carbon Dioxide 18 mmol/L (22-30); Chloride 112 mmol/L (98-107); Glucose 107 mg/dL (74-99); Non-African American GFR(CKD) >90 (>60 ml/min/1.73 sqM); Sodium 136 mmol/L (137-145)
[2023-06-04 12:25] LABS: INR 1.3 (<1.2); Prothrombin Time 13.3 sec (10.0-12.5)
[2023-06-04] MEDS: ceFAZolin 3,000 MG in SODIUM CHLORIDE 0.9% IRRIGATIO 3,000 ML IRRIGATION ONE (12:44)
[2023-06-04] MEDS: VANCOMYCIN 1,000 MG VIAL MISCELLANE ONE ×2 (12:44→13:29)
[2023-06-04] MEDS: ceFAZolin 1,000 MG VIAL IVPB ONE (12:44)
[2023-06-04] MEDS: GENTAMICIN 80 MG in SODIUM CHLORIDE 0.9% IRRIGATIO 3,000 ML IRRIGATION ONE (12:44)
[2023-06-04] MEDS: LIDOCAINE 1%-EPI 1:100,000 50 ML VIAL SQ ONE ×2 (12:44→13:29)
--- NOTE | 2023-06-04 14:29 | P.OP ---
Date of Procedure: 06/04/23 Preoperative Diagnosis: 1. Wound ulceration with dehiscence 2. Post operative seroma 3. s/p laminectomy, decompression, fusion and epidural hematoma evacuation with osteodiscitis treatment 4. ETOH cirrhosis 5. complex medical patient Postoperative Diagnosis: 1. Wound ulceration with dehiscence 2. Post operative seroma 3. s/p laminectomy, decompression, fusion and epidural hematoma evacuation with osteodiscitis treatment 4. ETOH cirrhosis 5. complex medical patient Procedure(s) Performed: 1. Excisional debridment of skin, soft tissue, muscle and bone lumbar spine 30 x 15 x 8 cm using the following: -SKin knife used to excise and ulcerated skin of wound as well as soft tissue -Curette and rongure used to remove deep tissue, muscle and bone -Curette used to debride epidrual space Implants: None Anesthesia: TINO Surgeon: Guillaume Narayanan Account Classification Clerk #1: Kamala Lopez (WAS PRESENT AND ASSISTED WITH ALL ASPECTS OF THE CASE FROM POSITION TO CLOSURE) Estimated Blood Loss (ml): 100 IV fluids (ml): 1,200 Urine output (ml): 0 Pathology: none sent Condition: stable Disposition: PACU Indications for Procedure: 67 YO MALE PRESENTS FROM HIS REHAB FACILITY 3 WEEKS OUT FROM DECOMPRESSION, FUSION, EPIDURAL HEMATOMA EVACUATION AND OSTEODISCITIS TREATMENT FOR WOUND ULCERATION AND DEHISCENCES AND SEROMA FORMATION FOR DEBRIDMENT. HE IS OTHERWISE DOING WELL. AND HE STATES HE IS PROGRESSING WITH HIS THERAPY AND IS ABLE TO WALK UNDER HIS OWN POWER WITH ASSIST DEVICE. HE IS ON ABX PER ID THROUGH HIS PICC LINE WITHOUT ISSUES. WE DISCUSSED AT LENGTH THE PROCEDURE WELL RISKS, BENEFITS AND ALTERNATIVES. RISKS INCLUDING BUT NOT LIMITED TO BLEEDING, CONTINUED INFECTION, DAMAGE TO TISSUE, NERVES, STROKE, VISION LOSS, RISK OF REOPERATION, RISK OF ANESTHESIA UP TO AND INCLUDING . PT AND COMFORTABLE WITH ALL THESE RISKS AND WERE WILLING TO ASSUME ALL THE RISKS OF SURGERY. THEY WERE WILLING TO PROCEED. Description of Procedure: The patient was seen and examined in the preoperative area. All preoperative protocols were followed. Informed consent was obtained risks and benefits of the procedure were discussed at length. Risks including bleeding infection damage to the surrounding tissue and risk of reoperation were discussed with the patient. Risk of anesthesia up to and including was a discussed with the patient. These are outlined in the risk review. They were willing to accept these risks and all of the risks of surgery. The patient was given a weight- based dose of antibiotics in the form of CEFAZOLIN THE PATIENT IS ON. The patient was seen and evaluated by the anesthesia team who deemed them fit for surgery. The site was marked, the patient was willing to proceed with the procedure. The patient was transferred to the operative suite by the Department of anesthesia. They were then drifted off to sleep by the department anesthesia and GETA was performed. The patient tolerated this well. Once confirmation of lines and ventilation the patient was transferred to a [prone Nolan table very carefully]. All bony prominences including wrists, elbows, axilla, chest, hips, and thighs, and feet were padded very well. Special attention was paid to the genitalia and these were padded accordingly. SCDs were placed on bilateral lower extremities and were connected. Arms were well padded and placed [on arm boards up and out in the 90/90 position]. Once in position, again we confirmed good ventilation capabilities and that lines were running appropriately. The pa tient's lumbar spine was then exposed. 1010s were placed outlining the incision site. Standard alcohol was used to clean the incision site and allowed to dry. C-arm was used to biomark the patient and confirm level for incision which was marked with a skin marker. Operative briefing was performed with all teams and everyone in agreement to proceed. The patient was then prepped and draped in a normal sterile fashion. Timeout was then performed and all parties were in agreement with the procedure to be performed. elliptical skin incision was made around the previously made incision and ul cerated areas and the incision extended to allow for the new wound edges to approximate easily without tension. We then excised the skin using a 10 blade and Bovie. Once skin edges were freshened we investigated the area and noted that at the distal portion the fascia had started to dehisce as well and there was seroma is fluid coming from here. Fascia was opened and the distal one third portion of the incision which revealed a large seromatous fluid collection which was evacuated. We investigated down to the hardware hardware was intact as well as dura. There is seromatous fluid collection in this area as well as healing tissue. No gross purulent tissue is noted at this time. We then proceeded with debridement and irrigation debridement was done with a Mikey of soft tissue and bone as well as a Oliver and curet. This was used to freshen the edges as well as debridement tissue. 3 L of Ancef irrigation and 3 L of gentamicin irrigation were run through the wound 1 L of Betadine solution was run through the wound as well as a 1 L Irricept irrigation. 6 L of normal sterile saline was then run through the wound for thorough debridement and irrigation. The wound was inspected and everything looks good at this point. We then placed a deep drain and secured it to the skin with a stitch. 2 g of vancomycin powder were placed deep within the wound. We then proceeded to layered closure. Deep fascial layer was closed with #1 PDS. Subcu tissues closed with 0 Vicryl. Skin edges were then approximated with 2-0 nylon and a horizontal mattress fashion. Wound edges approximated very well. The wound was then cleaned and dressed sterilely with Adaptic 4 x 4's ABDs and foam tape. The drain was connected and had good suction and output. The patient was transferred back to their hospital bed atraumatically. [Drain continued to hold suction and were in good position]. Patient was then awakened and extubated by the department of anesthesia having tolerated the procedure very well with no complications. They were transferred to the postoperative care unit in stable condition.
[2023-06-04 14:34] LABS: Glucose,Whole Blood 130 mg/dL (70-110)
[2023-06-04 14:36] VITALS: TEMP 97.4
[2023-06-04] MEDS: PHENYLEPHRINE-0.9% NACL SYG 1,000 MCG/10 ML SYRINGE IVP ONE (14:49)
[2023-06-04] MEDS: SODIUM CHLORIDE 0.9% 1,000 ML IV ONE ×3 (14:58→18:15)
[2023-06-04 15:07] VITALS: RESP 16
[2023-06-04] MEDS: HYDROmorphone 0.5 MG/0.5 ML SYRINGE IVP PRN (15:18)
[2023-06-04] MEDS: ALBUMIN HUMAN 5% (12.5gm) 250 ML BOTTLE IVPB ONE ×2 (15:41→16:02)
[2023-06-04 18:24] LABS: Anisocytosis Moderate; Basophils % (A) 0 %; Eosinophils % (A) 0 %; Hypochromasia Slight; Lymphocytes # (A) 0.2 k/uL (1.0-4.8); Lymphocytes % (A) 9 %; MCH 29.8 pg (25.0-35.0); MCHC 31.7 g/dL (31.0-37.0); MCV 93.9 fL (80.0-100.0); Macrocytosis Slight; Mean Platelet Volume 9.4; Monocytes # (A) 0.1 k/uL (0-1.0); Monocytes % (A) 3 %; Neutrophils # (A) 2.1 k/uL (1.3-7.7); Neutrophils % (A) 87 %; Platelet Count 105 k/uL (150-450); RBC 2.24 m/uL (4.30-5.90); RDW 20.8 % (11.5-15.5); WBC 2.4 k/uL (3.8-10.6)
[2023-06-04 18:29] LABS: HGB 6.7 gm/dL (13.0-17.5)
[2023-06-04 20:16] VITALS: BP 133/74; PULSE 72
== END ==
LOC: OR 10:54
PROVIDERS: ATTEND Orthopaedic Surgery
DX: T81.89XA Other complications of procedures, not elsewhere classified, initial encounter (principal); K70.30 Alcoholic cirrhosis of liver without ascites; L76.34 Postprocedural seroma of skin and subcutaneous tissue following other procedure; G06.2 Extradural and subdural abscess, unspecified; E11.9 Type 2 diabetes mellitus without complications; K21.9 Gastro-esophageal reflux disease without esophagitis; E78.5 Hyperlipidemia, unspecified; I10 Essential (primary) hypertension; M19.90 Unspecified osteoarthritis, unspecified site; D64.9 Anemia, unspecified; M10.9 Gout, unspecified; M54.50 Low back pain, unspecified; F10.90 Alcohol use, unspecified, uncomplicated; I85.00 Esophageal varices without bleeding; Z90.49 Acquired absence of other specified parts of digestive tract; Z98.890 Other specified postprocedural states; Z86.010 Personal history of colon polyps; Z87.891 Personal history of nicotine dependence; Z79.82 Long term (current) use of aspirin; Z79.51 Long term (current) use of inhaled steroids; Z79.84 Long term (current) use of oral hypoglycemic drugs; Z79.899 Other long term (current) drug therapy; Z88.2 Allergy status to sulfonamides; Z88.1 Allergy status to other antibiotic agents; Z96.652 Presence of left artificial knee joint
CPT/HCPCS: 10180; 86900; 86901; 80048; 85025; 85610; 86850; P9045; J2250; J3370; J0330; J1580; J1100; J2710; J2405; J0690; J2001; J3010; J1170; J2371

== ENCOUNTER 2023-06-10 07:17 | Emergency (ER) | payer MEDICARE, BC ==
[2023-06-10 08:02] LABS: Anisocytosis Moderate; Basophils % (A) 1 %; Eosinophils % (A) 0 %; HCT 26.6 % (39.0-53.0); Hypochromasia Slight; Lymphocytes # (A) 1.1 k/uL (1.0-4.8); Lymphocytes % (A) 18 %; MCH 31.4 pg (25.0-35.0); MCHC 32.7 g/dL (31.0-37.0); MCV 95.8 fL (80.0-100.0); Macrocytosis Slight; Mean Platelet Volume 8.9; Monocytes # (A) 0.4 k/uL (0-1.0); Monocytes % (A) 7 %; Neutrophils # (A) 4.3 k/uL (1.3-7.7); Neutrophils % (A) 71 %; Platelet Count 203 k/uL (150-450); RBC 2.78 m/uL (4.30-5.90); RDW 21.2 % (11.5-15.5); WBC 6.1 k/uL (3.8-10.6)
[2023-06-10 08:09] LABS: HGB 8.7 gm/dL (13.0-17.5)
[2023-06-10 08:10] LABS: INR 1.2 (<1.2); Partial Thromboplastin Time 28.1 sec (22.0-30.0); Prothrombin Time 13.2 sec (10.0-12.5)
[2023-06-10 08:14] LABS: ALT 11 U/L (4-49); AST 43 U/L (17-59); African American GFR (CKD) >90 (>60 ml/min/1.73 sqM); Alkaline Phosphatase 186 U/L (38-126); Anion Gap 6 mmol/L; Blood Urea Nitrogen 12 mg/dL (9-20); Calcium 8.7 mg/dL (8.4-10.2); Carbon Dioxide 21 mmol/L (22-30); Chloride 108 mmol/L (98-107); Glucose 118 mg/dL (74-99); Magnesium 1.6 mg/dL (1.6-2.3); Non-African American GFR(CKD) >90 (>60 ml/min/1.73 sqM); Potassium 4.9 mmol/L (3.5-5.1); Sodium 135 mmol/L (137-145); Total Bilirubin 0.7 mg/dL (0.2-1.3); Total Protein 6.6 g/dL (6.3-8.2)
[2023-06-10 08:25] VITALS: PULSE 68; TEMP 99.1
--- NOTE | 2023-06-10 08:29 | ED ---
General Adult HPI - General Chief complaint: Recheck/Abnormal Lab/Rx Stated complaint: Transfusion Time Seen by Provider: 06/10/23 07:20 Source: patient, RN notes reviewed Mode of arrival: wheelchair Limitations: no limitations - History of Present Illness Initial comments: 67-year-old male presents emergency department chief complaint of anemia. Patient states that he is currently at rehab after he had a back infection. He was told his hemoglobin was 6.7 today. He does admit that he had surgery on Wednesday states that his hemoglobin has been lower but told him it was dilution from his PICC line. Patient denies any new symptoms denies chest pain or shortness of breath. He does have abdominal swelling from his ascites in which they recently stopped his Lasix. Patient denies any melanotic stools denies any hematochezia. - Related Data Home Medications Medication Instructions Recorded Confirmed Colesevelam [Welchol] 1,875 tab PO DAILY@1700 09/18/14 06/10/23 allopurinoL [Zyloprim] 300 mg PO DAILY@0800 09/18/14 06/10/23 Omeprazole 20 mg PO BID@0800,1700 03/07/21 06/10/23 Ascorbic Acid [Vitamin C] 1,000 mg PO DAILY@0800 01/28/23 06/10/23 Aspirin [Adult Low Dose Aspirin EC] 81 mg PO DAILY@0800 01/28/23 06/10/23 Cholecalciferol [Vitamin D3 (25 50 mcg PO DAILY@0800 04/22/23 06/10/23 Mcg = 1000 Iu)] Ferrous Sulfate [Feosol] 325 mg PO BID@0800,1700 06/03/23 06/10/23 Furosemide [Lasix] 40 mg PO DAILY@1400 06/03/23 06/10/23 Furosemide [Lasix] 80 mg PO DAILY@0600 06/03/23 06/10/23 Glucerna Shake 120 ml PO TID@0800,1200,1700 06/03/23 06/10/23 Lactulose [Cephulac] 20 gm PO BID@0800,1700 06/03/23 06/10/23 Magnesium Hydroxide [Milk of 7,200 mg PO DIRECTED PRN 06/03/23 06/10/23 Magnesia Concentrate] Magnesium Hydroxide [Milk of 2,400 mg PO DAILY@0800 06/03/23 06/10/23 Magnesia] Multivitamin/Iron/Folic Acid 1 tab PO DAILY@0800 06/03/23 06/10/23 [Centrum Adults Tablet] Na Phos,M-B/Na Phos,Di-Ba [Fleet 1 dose RECTAL DIRECTED PRN 06/03/23 06/10/23 Adult] bisacodyL [Dulcolax] 10 mg RECTAL DAILY PRN 06/03/23 06/10/23 guaiFENesin SYRUP 100MG/5ML 10 ml PO Q6HR PRN 06/03/23 06/10/23 [Robitussin] Ipratropium-Albuterol Nebulize 3 ml INHALATION RT-QID PRN 06/10/23 06/10/23 [Duoneb 0.5 mg-3 mg/3 ml Soln] Losartan [Cozaar] 25 mg PO BID@0800,1700 06/10/23 06/10/23 Magnesium Oxide [Mag-Ox] 400 mg PO BID@0800,1700 06/10/23 06/10/23 Potassium Chloride 20 meq PO BID@0800,1700 06/10/23 06/10/23 Sennosides-Docusate Sodium 2 tab PO DAILY@0800 06/10/23 06/10/23 [Senokot-S] Spironolactone [Aldactone] 50 mg PO BID@0800,1700 06/10/23 06/10/23 atenoloL 25 mg PO DAILY@0800 06/10/23 06/10/23 ceFAZolin [Kefzol] 2,000 mg IVPB Q8HR@0600,1400,2200 06/10/23 06/10/23 Previous Rx's Medication Instructions Recorded Acetaminophen Tab [Tylenol] 650 mg PO Q6HR PRN tab 05/07/23 traMADol HCl [Ultram] 50 mg PO QID PRN #6 tab 05/07/23 Allergies Allergy/AdvReac Type Severity Reaction Status Date / Time Sulfa (Sulfonamide Allergy Rash/Hives Verified 06/10/23 08:18 Antibiotics) Review of Systems ROS Statement: Those systems with pertinent positive or pertinent negative responses have been documented in the HPI. ROS Other: All systems not noted in ROS Statement are negative. Past Medical History Past Medical History: Diabetes Mellitus, GERD/Reflux, Hyperlipidemia, Hypertension, Osteoarthritis (OA) Additional Past Medical History / Comment(s): GOUT. LOWER BACK PAIN. HX OF COLON POLYP. ARTHRITIS KNEES. HX ESOPHAGEAL VARICES WITH BANDING. History of Any Multi-Drug Resistant Organisms: None Reported Past Surgical History: Cholecystectomy, Joint Replacement, Orthopedic Surgery Additional Past Surgical History / Comment(s): Surgery for deviated septum, bilateral cataracts removed, right knee arthroscopy, wisdom teeth removed, EGD with ESOPHAGEAL BANDS at [place], COLONOSCOPIES, left knee replacement. Past Anesthesia/Blood Transfusion Reactions: No Reported Reaction Additional Past Anesthesia/Blood Transfusion Reaction / Comment(s): Woke up once when IV infiltrated during EGD. Past Psychological History: No Psychological Hx Reported Smoking Status: Former smoker Past Alcohol Use History: Occasional Past Drug Use History: None Reported - Past Family History Mother Family Medical History: No Reported History General Exam Limitations: no limitations General appearance: alert, in no apparent distress Head exam: Present: atraumatic, normocephalic, normal inspection Eye exam: Present: normal appearance, PERRL, EOMI. Absent: scleral icterus, conjunctival injection, periorbital swelling ENT exam: Present: normal exam, normal oropharynx, mucous membranes moist Neck exam: Present: normal inspection, full ROM. Absent: tenderness, meningismus, lymphadenopathy Respiratory exam: Present: normal lung sounds bilaterally. Absent: respiratory distress, wheezes, rales, rhonchi, stridor Cardiovascular Exam: Present: regular rate, normal rhythm, normal heart sounds. Absent: systolic murmur, diastolic murmur, rubs, gallop, clicks GI/Abdominal exam: Present: soft, distended, normal bowel sounds. Absent: tenderness, guarding, rebound, rigid Course Vital Signs 06/10/23 06/10/23 06/10/23 07:27 07:56 08:03 Temperature 99.1 F Pulse Rate 110 H 68 Respiratory 18 16 20 Rate Blood Pressure 162/77 164/78 O2 Sat by Pulse 95 98 Oximetry 06/10/23 08:45 Temperature Pulse Rate 68 Respiratory 16 Rate Blood Pressure 155/94 O2 Sat by Pulse 99 Oximetry EKG Findings - EKG Comments: EKG Findings:: EKG performed at 8: 03 sinus tachycardia rate of 109 IA 146 QRS 84 QT/QTc 308/372 - EKG Results: EKG: interpreted by [facility] Medical Decision Making - Medical Decision Making Was pt. sent in by a medical professional or institution (HARIKA Sesay, [employer], urgent care, hospital, or senior care...) When possible be specific @ -No Did you speak to anyone other than the patient for history (EMS, parent, family, police, friend...)? What history was obtained from this source @ -No Did you review nursing and triage notes (agree or disagree)? Why? @ -I reviewed and agree with nursing and triage notes Were old charts reviewed (outside hosp., previous admission, EMS record, old EKG, old radiological studies, urgent care reports/EKG's, senior care records)? Report findings @ -No old charts were reviewed Differential Diagnosis (chest pain, altered mental status, abdominal pain women, abdominal pain men, vaginal bleeding, weakness, fever, dyspnea, syncope, headache, dizziness, GI bleed, back pain, seizure, CVA, palpatations, mental health, musculoskeletal)? @ -Anemia, GI bleed EKG interpreted by me (3pts min.). @ -[None X-rays interpreted by me (1pt min.). @ -None done CT interpreted by me (1pt min.). @ -None done U/S interpreted by me (1pt. min.). @ -None done What testing was considered but not performed or refused? (CT, X-rays, U/S, labs)? Why? @ -None What meds were considered but not given or refused? Why? @ -None Did you discuss the management of the patient with other professionals (professionals i.e. HARIKA Sesay, [employer] HEL[employer], lab, RT, psych nurse, psychosocial rehabilitation counselor, clinical practice consultant, teacher, special service officer, manager rn case)? Give summary @ -No Was smoking cessation discussed for >3mins.? @ -No Was critical care preformed (if so, how long)? @ -No Were there social determinants of health that impacted care today? How? (Homelessness, low income, unemployed, alcoholism, drug addiction, transportation, low edu. Level, literacy, decrease access to med. care, prison, rehab)? @ -No Was there de-escalation of care discussed even if they declined (Discuss DNR or withdrawal of care, Hospice)? DNR status @ -No What co-morbidities impacted this encounter? (DM, HTN, Smoking, COPD, CAD, Cancer, CVA, ARF, Chemo, Hep., AIDS, mental health diagnosis, sleep apnea, morb id obesity)? @ -None Was patient admitted / discharged? Hospital course, mention meds given and rout e, prescriptions, significant lab abnormalities, going to OR and other pertinent info. @ -[Hemoglobin was 8.7, patient's prior hemoglobin was 6.7 might have been dilutional from drying off patient's PICC line. Patient is asymptomatic will be discharged back to rehab facility Undiagnosed new problem with uncertain prognosis? @ -No Drug Therapy requiring intensive monitoring for toxicity (Heparin, Nitro, Insulin, Cardizem)? @ -No Were any procedures done? @ -No Diagnosis/symptom? @ -[Anemia Acute, or Chronic, or Acute on Chronic? @ -Chronic Uncomplicated (without systemic symptoms) or Complicated (systemic symptoms)? @ -Uncomplicated Side effects of treatment? @ -[No Exacerbation, Progression, or Severe Exacerbation? @ -No Poses a threat to life or bodily function? How? (Chest pain, USA, AR, pneumonia, PE, COPD, DKA, ARF, appy, cholecystitis, CVA, Diverticulitis, Homicidal, Suicidal, threat to staff... and all critical care pts) @ -No - Lab Data Result diagrams: 06/10/23 07:50 06/10/23 07:50 Lab Results 06/10/23 06/10/23 06/10/23 Range/Units 07:45 07:50 07:50 WBC 6.1 (3.8-10.6) k/uL RBC 2.78 L (4.30-5.90) m/uL Hgb 8.7 L D (13.0-17.5) gm/dL Hct 26.6 L (39.0-53.0) % MCV 95.8 (80.0-100.0) fL MCH 31.4 (25.0-35.0) pg MCHC 32.7 (31.0-37.0) g/dL RDW 21.2 H (11.5-15.5) % Plt Count 203 (150-450) k/uL MPV 8.9 Neutrophils % 71 % Lymphocytes % 18 % Monocytes % 7 % Eosinophils % 0 % Basophils % 1 % Neutrophils # 4.3 (1.3-7.7) k/uL Lymphocytes # 1.1 (1.0-4.8) k/uL Monocytes # 0.4 (0-1.0) k/uL Eosinophils # 0.0 (0-0.7) k/uL Basophils # 0.0 (0-0.2) k/uL Hypochromasia Slight Anisocytosis Moderate Macrocytosis Slight PT (10.0-12.5) sec INR (<1.2) APTT (22.0-30.0) sec Sodium 135 L (137-145) mmol/L Potassium 4.9 (3.5-5.1) mmol/L Chloride 108 H (98-107) mmol/L Carbon Dioxide 21 L (22-30) mmol/L Anion Gap 6 mmol/L BUN 12 (9-20) mg/dL Creatinine 0.50 L (0.66-1.25) mg/dL Est GFR (CKD-EPI)AfAm >90 (>60 ml/min/1.73 sqM) Est GFR (CKD-EPI)NonAf >90 (>60 ml/min/1.73 sqM) Glucose 118 H (74-99) mg/dL Calcium 8.7 (8.4-10.2) mg/dL Magnesium 1.6 (1.6-2.3) mg/dL Total Bilirubin 0.7 (0.2-1.3) mg/dL AST 43 (17-59) U/L ALT 11 (4-49) U/L Alkaline Phosphatase 186 H (38-126) U/L Total Protein 6.6 (6.3-8.2) g/dL Albumin 3.0 L (3.5-5.0) g/dL Blood Type AB Positive Blood Type Recheck AB Pos Bld Type Recheck Status No Antibody Screen NEGATIVE Spec Expiration Date 06/13/2023 - 234406/10/23 Range/Units 07:50 WBC (3.8-10.6) k/uL RBC (4.30-5.90) m/uL Hgb (13.0-17.5) gm/dL Hct (39.0-53.0) % MCV (80.0-100.0) fL MCH (25.0-35.0) pg MCHC (31.0-37.0) g/dL RDW (11.5-15.5) % Plt Count (150-450) k/uL MPV Neutrophils % % Lymphocytes % % Monocytes % % Eosinophils % % Basophils % % Neutrophils # (1.3-7.7) k/uL Lymphocytes # (1.0-4.8) k/uL Monocytes # (0-1.0) k/uL Eosinophils # (0-0.7) k/uL Basophils # (0-0.2) k/uL Hypochromasia Anisocytosis Macrocytosis PT 13.2 H (10.0-12.5) sec INR 1.2 H (<1.2) APTT 28.1 (22.0-30.0) sec Sodium (137-145) mmol/L Potassium (3.5-5.1) mmol/L Chloride (98-107) mmol/L Carbon Dioxide (22-30) mmol/L Anion Gap mmol/L BUN (9-20) mg/dL Creatinine (0.66-1.25) mg/dL Est GFR (CKD-EPI)AfAm (>60 ml/min/1.73 sqM) Est GFR (CKD-EPI)NonAf (>60 ml/min/1.73 sqM) Glucose (74-99) mg/dL Calcium (8.4-10.2) mg/dL Magnesium (1.6-2.3) mg/dL Total Bilirubin (0.2-1.3) mg/dL AST (17-59) U/L ALT (4-49) U/L Alkaline Phosphatase (38-126) U/L Total Protein (6.3-8.2) g/dL Albumin (3.5-5.0) g/dL Blood Type Blood Type Recheck Bld Type Recheck Status Antibody Screen Spec Expiration Date Disposition Clinical Impression: Ascites, Anemia Disposition: HOME SELF-CARE Condition: Stable Additional Instructions: Please return to the Emergency Department if symptoms worsen or any other concerns. Is patient prescribed a controlled substance at d/c from ED?: No Referrals: Daryl Campbell DO [Primary Care Provider] - 1-2 days Time of Disposition: 08:29
[2023-06-10 08:59] VITALS: BP 155/94; RESP 16
== END 2023-06-10 08:52 | disposition home or self-care (01) ==
LOC: EC 07:17
DX: D64.9 Anemia, unspecified (principal); R18.8 Other ascites; I10 Essential (primary) hypertension; K21.9 Gastro-esophageal reflux disease without esophagitis; E11.9 Type 2 diabetes mellitus without complications; I25.2 Old myocardial infarction; Z87.891 Personal history of nicotine dependence; Z79.82 Long term (current) use of aspirin; Z79.84 Long term (current) use of oral hypoglycemic drugs; Z79.899 Other long term (current) drug therapy; Z88.2 Allergy status to sulfonamides
CPT/HCPCS: 36415; 80053; 83735; 85025; 85610; 85730; 86850; 86900; 86901; 93005; 99283

== ENCOUNTER 2023-07-02 13:55 | Inpatient (IN) | payer MEDICARE, BC ==
--- NOTE | 2023-07-02 13:14 | P.HPOR ---
History of Present Illness H&P Date: 07/02/23 .T:Title: HISTORY AND PHYSICAL PO week/yr: 3 wks VAS: 5 OCCUPATION: NA IMPRESSION: 1. s/p irrigation and debridement of thoracolumbar spine 2. s/p osteodiscitis treatment with fusion and epidural abscess evacuation 3. complex medical patient PLAN: - PLAN FOR SURGICAL DEBRIDEMENT OF WOUND DUE TO CONTINUED DRAINAGE AND DEHISCENCE LUMBAR SPINE -CONT IB ABX PER ID -CONT PT/OT DAILY -CONT RX MEDS NEEDED FOLLOW UP: Post Op SUBJECTIVE: Pt presents today for recheck of his low back. He has been in rehab and doing well overall. He has been doing PT daily and been working on his balance and strength. He was doing well with his wound, but then over the weekend the wound opened back up in the mid portion in a small pin hole and started draining again. He states no pain or purulence. He states the drainage is on and off sometimes worse sometimes there is none. Ex in room states no other sx. He states he feels better overall. The Exwife states that at rehab, they stuck a probe it the wound to "see how deep it was" without cleaning it. Otherwise patient is very pleased with their progress since the time of their procedure and denies any f/c/sob/cp, perineal numbness and tinlging, bowel or bladder incontinence/retention, and is ambulating The patients' past social, medical, family, surgical history, as well as review of systems, have been reviewed. Please refer to the Neurosurgery History and Physical form that has been scanned in to our electronic medical record system. 16 points review of systems completed and as stated in HPI, all other systems reviewed are negative. RADIOGRAPHS: Post operative images taken today in office are reviewed with pt. AP and Lateral of Lumbar demonstrate hardware in satisfactory position with no evidence of any migration, fracture, failure or complicating process. PHYSICAL EXAM: AOX3, NAD, Appears well nourished and well hydrated. Overall alignment well maintained at this time inthe sagittal and coronal planes Incision: Most of the incision is healed well except for a small area in the bottom where there is a pin hole that is draining still and there is dehiscnce there. TTP: Minor around incision site. FROM all major joints without restriction or pain 4+/5 BUE all major muscle groups. 4+/5 BLE all major muscle groups -No focal deficits. Generalized weakness and deconditioning. SILT C3-T1 and L2-S1 Reflexes 2/4 all UE and LE b/l Berg's: NEG Clonus: NEG Babinski: NEG Travis's: NEG No tensioning signs CN II-XII grossly intact 2/4 Distal pulses all 4 ext, no edema Compartments soft and compressive Abdomen soft, NTTP Respirations normal, non labored PATIENT EDUCATION: Medications Reviewed: YES In our visit today Mr. Brent SANTO and I have had a chance to go over my understanding of the patient's current condition, the natural course history without intervention and various interventional options. Questions were invited and answered, and the patient wishes to proceed as outlined above. I will be sure to keep you updated after Mr. Brent SANTO returns here for further follow-up. Thank you again for your referral. Please do not hesitate to contact me if you have any further questions. Signed and authenticated by: Guillaume Burkett [facility] [address] [place] [address] This message is confidential, intended only for the named recipient(s) and may contain information that is privileged or exempt from disclosure under applicable law. If you are not the intended recipient(s), you are notified that the dissemination, distribution or copying of this information is strictly prohibited. If you received this message in error, please notify the sender then delete this message. #Orders: Lumbar 2v xray # SIGNED BY Guillaume Narayanan (O)07/01/2023 07:56A Past Medical History Past Medical History: Diabetes Mellitus, GERD/Reflux, Hyperlipidemia, Hypertension, Osteoarthritis (OA) Additional Past Medical History / Comment(s): GOUT. LOWER BACK PAIN. HX OF COLON POLYP. ARTHRITIS KNEES. HX ESOPHAGEAL VARICES WITH BANDING., LIVER CIRRHOSIS., NON HEALING WOUND POST BACK SURGERY History of Any Multi-Drug Resistant Organisms: None Reported Past Surgical History: Back Surgery, Cholecystectomy, Joint Replacement, Orthopedic Surgery Additional Past Surgical History / Comment(s): Surgery for deviated septum, bilateral cataracts removed, right knee arthroscopy, wisdom teeth removed, EGD with ESOPHAGEAL BANDS at [place], COLONOSCOPIES, left knee replacement., laminectomy, decompression & fusion. Past Anesthesia/Blood Transfusion Reactions: No Reported Reaction Additional Past Anesthesia/Blood Transfusion Reaction / Comment(s): Woke up once when IV infiltrated during EGD. multiple blood transfusions with no reaction Smoking Status: Former smoker - Past Family History Mother Family Medical History: No Reported History Medications and Allergies Home Medications Medication Instructions Recorded Confirmed Type Colesevelam [Welchol] 3 tab PO AC-SUPPER 09/18/14 07/01/23 History allopurinoL [Zyloprim] 300 mg PO DAILY 09/18/14 07/01/23 History Omeprazole 20 mg PO BID 03/07/21 07/01/23 History Ascorbic Acid [Vitamin C] 1,000 mg PO DAILY 01/28/23 07/01/23 History Aspirin [Adult Low Dose Aspirin EC] 81 mg PO DAILY 01/28/23 07/01/23 History Cholecalciferol [Vitamin D3 (25 50 mcg PO DAILY 04/22/23 07/01/23 History Mcg = 1000 Iu)] Acetaminophen Tab [Tylenol] 650 mg PO Q6HR PRN tab 05/07/23 07/01/23 Rx traMADol HCl [Ultram] 50 mg PO QID PRN #6 tab 05/07/23 07/01/23 Rx Ferrous Sulfate [Feosol] 325 mg PO BID 06/03/23 07/01/23 History Furosemide [Lasix] 40 mg PO DAILY 06/03/23 07/01/23 History Furosemide [Lasix] 80 mg PO DAILY 06/03/23 07/01/23 History Lactulose [Cephulac] 20 gm PO BID 06/03/23 07/01/23 History Magnesium Hydroxide [Milk of 1 dose PO DIRECTED PRN 06/03/23 07/01/23 History Magnesia Concentrate] Magnesium Hydroxide [Milk of 2,400 mg PO DAILY 06/03/23 07/01/23 History Magnesia] Multivitamin/Iron/Folic Acid 1 tab PO DAILY 06/03/23 07/01/23 History [Centrum Adults Tablet] Na Phos,M-B/Na Phos,Di-Ba [Fleet 1 dose RECTAL DIRECTED PRN 06/03/23 07/01/23 History Adult] bisacodyL [Dulcolax] 10 mg RECTAL DAILY PRN 06/03/23 07/01/23 History guaiFENesin SYRUP 100MG/5ML 10 ml PO Q6HR PRN 06/03/23 07/01/23 History [Robitussin] Ipratropium-Albuterol Nebulize 3 ml INHALATION RT-QID PRN 06/10/23 07/01/23 History [Duoneb 0.5 mg-3 mg/3 ml Soln] Losartan [Cozaar] 25 mg PO BID 06/10/23 07/01/23 History Magnesium Oxide [Mag-Ox] 400 mg PO BID 06/10/23 07/01/23 History Potassium Chloride 20 meq PO BID 06/10/23 07/01/23 History Sennosides-Docusate Sodium 2 tab PO DAILY 06/10/23 07/01/23 History [Senokot-S] Spironolactone [Aldactone] 50 mg PO BID 06/10/23 07/01/23 History ceFAZolin [Kefzol] 2,000 mg IVPB Q8HR 06/10/23 07/01/23 History Fluticasone Propionate 2 sprays EA NOSTRIL DAILY 07/01/23 07/01/23 History [Fluticasone Propionate [place] 50 mcg Nasal [place]] Hydrocortisone Cream 1 applic TOPICAL BID PRN 07/01/23 07/01/23 History [Hydrocortisone 1% Cream] Natural Tears 2 drop BOTH EYES TID PRN 07/01/23 History Allergies Allergy/AdvReac Type Severity Reaction Status Date / Time Sulfa (Sulfonamide Allergy Rash/Hives Verified 07/01/23 10:40 Antibiotics) Physical Examination Osteopathic Statement: *. No significant issues noted on an osteopathic structural exam other than those noted in the History and Physical/Consult.
[~2023-07-02 13:55] MED LIST changes: -ALBUMIN HUMAN 5% 250 ML in EMPTY BAG 1 BAG IVPB STA; -GLYCOPYRROLATE 0.2 MG/ML 2 ML VIAL ONE; -HYDROmorphone (PF) 1 MG/ML ONE; +HYDROmorphone 0.5 MG/0.5 ML SYRINGE IVP PRN; -LIDOCAINE 1% INJ 10MG/ML (20 ML MDV) ONE; -METOCLOPRAMIDE 5 MG/ML 2 ML VIAL IVP PRN; +MIDAZOLAM 2 MG/2 ML VIAL IV PRN; -MIDAZOLAM 2 MG/2 ML VIAL ONE; -NEOSTIGMINE 1 MG/ML 10 ML VIAL ONE; -PHENYLEPHRINE-0.9% NACL SYG 1,000 MCG/10 ML SYRINGE ONE; -Pre Op ABX Message 1 EACH MISC MISCELLANE ONE; -ROCURONIUM 10 MG/ML (5 ML VIAL) IV ONE; -SUCCINYLCHOLINE CHLORIDE 200 MG/10 ML VIAL IV ONE; -TRANEXAMIC 1,000 MG/100ML-NACL PREMIX BAG ONE; -fentaNYL (PF) 50 MCG/ML 2 ML AMP ONE
[2023-07-02] MEDS: LACTATED RINGERS 1,000 ML IV ONE ×2 (14:33→16:03)
[2023-07-02 14:38] LABS: Glucose,Whole Blood 104 mg/dL (70-110)
[2023-07-02] MEDS: ACETAMINOPHEN TAB 500 MG TAB PO PRN (14:46)
[2023-07-02] MEDS: ONDANSETRON 4 MG/2 ML VIAL IVP PRN (14:47)
[2023-07-02] MEDS: GABAPENTIN 300 MG CAP PO PRN (14:47)
[2023-07-02] MEDS ORDERED: PHENYLEPHRINE 10 MG/ML VIAL ONE (16:01)
[2023-07-02] MEDS ORDERED: PROPOFOL 10 MG/ML 20 ML VIAL IV ONE (16:01)
[2023-07-02] MEDS ORDERED: fentaNYL (PF) 50 MCG/ML 2 ML AMP ONE (16:01)
[2023-07-02] MEDS ORDERED: SUCCINYLCHOLINE CHLORIDE 200 MG/10 ML VIAL IV ONE (16:01)
[2023-07-02] MEDS ORDERED: MIDAZOLAM 2 MG/2 ML VIAL ONE (16:01)
[2023-07-02] MEDS ORDERED: LIDOCAINE 1% INJ 10MG/ML (20 ML MDV) ONE (16:01)
[2023-07-02] MEDS: VANCOMYCIN 1,000 MG VIAL MISCELLANE ONE (16:46)
[2023-07-02] MEDS: LACTATED RINGERS 1,000 ML IV SCH (17:16)
[2023-07-02 17:47] LABS: Glucose,Whole Blood 93 mg/dL (70-110)
[2023-07-02] MEDS ORDERED: CYCLOBENZAPRINE 5 MG TAB PO PRN (17:55)
[2023-07-02] MEDS ORDERED: ONDANSETRON 4 MG/2 ML VIAL IVP PRN (17:55)
[2023-07-02] MEDS ORDERED: HYDROmorphone 1 MG/ML 1 ML SYRINGE IVP PRN (17:55)
[2023-07-02] MEDS: Pre Op ABX Message 1 EACH MISC MISCELLANE ONE (18:07)
[2023-07-02] MEDS: SODIUM CHLORIDE 0.9% 1,000 ML IV SCH (18:07)
[2023-07-02] MEDS ORDERED: bisacodyL 10 MG SUPP RECTAL PRN (18:21)
[2023-07-02] MEDS ORDERED: MAGNESIUM HYDROXIDE 2,400 MG/30 ML CUP PO PRN (18:21)
[2023-07-02] MEDS: HYDROmorphone 0.5 MG/0.5 ML SYRINGE IVP PRN (20:07)
[2023-07-03] MEDS: CEFEPIME 2 GM in SODIUM CHLORIDE 0.9% 100 ML IVPB SCH (00:21)
[2023-07-03] MEDS: HYDROcodone/APAP 10-325MG 1 EACH TAB PO PRN (05:14)
--- NOTE | 2023-07-03 06:39 | P.PN ---
Subjective Progress Note Date: 07/03/23 Principal diagnosis: 1. s/p irrigation and debridement of thoracolumbar spine 2. s/p osteodiscitis treatment with fusion and epidural abscess evacuation 3. complex medical patient Patient seen and examined this morning. Patient is resting comfortable in bed. He reports his pain is managed on current regimen. Surgical incision to the thoracolumbar spine, Prevana wound vac is intact and holding suction. Hemovac is present and patent with serosangeous output. Patient states he is looking forward to working with physical therapy and to be up out of bed. Patient denies any radicular symptoms or numbness feeling to the bilateral lower ext remities. Informed patient that consult was placed for infectious disease regarding delayed wound healing, and that cultures were obtained and pending. Patient verbalizes understanding. No acute concerns at this time. Objective - Vital Signs Vital signs: Vital Signs Temp 98.6 F 07/03/23 01:35 Pulse 94 07/03/23 00:16 Resp 18 07/03/23 00:16 BP 100/66 07/03/23 00:16 Pulse Ox 100 07/03/23 00:16 FiO2 Intake & Output 07/02/23 07/02/23 07/03/23 06:59 18:59 06:59 Intake Total 1150 Output Total 20 Balance 1130 Weight 67.6 kg Intake: IV 1150 Output: Estimated Blood Loss 20 Assessment and Plan Assessment: Postop day 1: Irrigation and debridement of thoracolumbar wound 1. s/p irrigation and debridement of thoracolumbar spine 2. s/p osteodiscitis treatment with fusion and epidural abscess evacuation 3. complex medical patient Plan: -Appreciate client care consultant and team management. -Consult to Dr. Davepnort for delayed wound healing, patient currently on OP IV antibiotics without results. -Lumbar wound cultures pending -Activity: Ambulate QID, OOB all meals, up and about, limit lifting bending twisting to less than 5 lbs. Use walker or cane if needed for stability. -Daily PT/OT, increase ambulation strength and balance. -Pain control: Adequate at this time -Meds: reviewed -GI ppx: senna, Miralax -DVT PPX: OK to restart Heparin tonight -Hygiene: Maintain dressing clean and dry. Meticulous cleaning after BMs away from the incision site -Drains: Maintain for now. Continue to monitor and record output q shift. Maintain Prevana wound vac. -Encourage IS 10x/hr -Dispo: Clincally pending, will return to [facility] at discharge *I reviewed and discussed this case with my attending Dr. Narayanan, whom has reviewed this chart and films and is in agreement with assessment and plan of care as outlined above. I have personally seen and examined the patient, performed the documentation and the assessment and plan as written. Number of minutes spent on the visit: 20m.
[2023-07-03 08:06] LABS: ALT 8 U/L (4-49); AST 34 U/L (17-59); African American GFR (CKD) >90 (>60 ml/min/1.73 sqM); Albumin 2.1 g/dL (3.5-5.0); Albumin/Globulin Ratio 0.7; Alkaline Phosphatase 142 U/L (38-126); Anion Gap 3 mmol/L; Blood Urea Nitrogen 13 mg/dL (9-20); C Reactive Protein 3.5 mg/dL (<1.0); Calcium 7.9 mg/dL (8.4-10.2); Carbon Dioxide 18 mmol/L (22-30); Chloride 108 mmol/L (98-107); Globulin 3.1 g/dL; Glucose 94 mg/dL (74-99); Non-African American GFR(CKD) >90 (>60 ml/min/1.73 sqM); Potassium 5.1 mmol/L (3.5-5.1); Sodium 129 mmol/L (137-145); Total Bilirubin 0.6 mg/dL (0.2-1.3); Total Protein 5.2 g/dL (6.3-8.2)
--- NOTE | 2023-07-03 08:33 | P.OP ---
Date of Procedure: 07/02/23 Preoperative Diagnosis: 1. LUMBAR WOUND DEHISCENCE 2. S/P EPIDURAL ABSCESS EVACUATION AND OSTEOMYLEITIS DISCITIS TREATMENT 3. CONTINUED DEEP INFECTION LUMBAR SPINR 4. ALCOHOLIC CIRRHOSIS 5. COMPLEX MEDICAL PT WITH SKILLED NURSING Postoperative Diagnosis: 1. LUMBAR WOUND DEHISCENCE 2. S/P EPIDURAL ABSCESS EVACUATION AND OSTEOMYLEITIS DISCITIS TREATMENT 3. CONTINUED DEEP INFECTION LUMBAR SPINR 4. ALCOHOLIC CIRRHOSIS 5. COMPLEX MEDICAL PT WITH SKILLED NURSING Procedure(s) Performed: 1. INCISION AND DRAINAGE WITH IRRIGATION AND DEBRIDEMENT, EXCISIONAL, LUMBAR SPINE SKIN, SOFT TISSUE AND BONE 30 X 20 X 10 CM USING THE FOLLOWING: -KNIFE TO EXCISE SKIN AND SOFT TISSUE -CURETTE TO REMOVE AND DEBRIDE SOFT TISSUE AND BONE -IRRICEPT -BETADINE IRRIGATION -6L NSS IRRIGATION 2. COMPLEX 3 LAYER CLOSURE LUMBAR SPINE Implants: NONE Anesthesia: TINO Surgeon: Guillaume Narayanan Job Analyst #1: Kamala Lopez (Was present and assisted with all aspects of the case from position to closure. ) Estimated Blood Loss (ml): 100 IV fluids (ml): 1,000 Urine output (ml): 250 Pathology: other (X1 LUMBAR WOUND) Condition: stable Disposition: PACU Indications for Procedure: 67 yo male who has a hx of ETOH cirrhosis amidst other SKILLED NURSING who previously underwent evacuation with I&D and decompression for epidural abscess, osteodiscitis and osteomyelotis with subsequent continued wound drainage and washout, presents today for continued draining wound. He states no pain in his back but continued draining from a small area in the low portion of his wound in the lumbar spine. He has been at [facility] rehab during this time and has been on IVABX for this and following with ID. He states continued drainage that is serous in nature but he states at one point it may have been purulent. Exwife i s with him and states he is overall doing better but this continued drainage has been burdensome on his recovery and he does not seem to heal his wounds well due to his conditions. We discussed different options but ultimately he needs to be washed out again with new cultures as there is a possibility of infection transformation or different bacteria as he is not clearning this infection well. He has SKILLED NURSING which are making it difficult but he is having more trouble than most it seems. He denies any other sx at this time no numbness, tingling. He is able to walk under his own power again and with reasonable strength. He denies any other issues. We discussed risks and benefits of surgery again as outlined in past risk reviewed. This include but are not limited to risk of bleeding, infection, damage to tissues, nerve damage, reoperation, anesthesia risk up to and including . They understand and are willing to assume all these risks and the risk of surgery. He is willing to proceed today. Description of Procedure: LUMBAR WOUND IRRIGATION AND DEBRIDEMENT The patient was seen and examined in the preoperative area. All preoperative protocols were followed. Informed consent was obtained, risks and benefits of the procedure were discussed at length. Risks including bleeding infection damage to the surrounding tissue and risk of reoperation were discussed with the patient. Risk of anesthesia up to and including was discussed with the patient. These are outlined in the risk review. They were willing to accept these risks and all of the risks of surgery. The patient was given a weight- based dose of antibiotics in the form of Ancef 2g which he is on through his PICC every 8 hrs. The patient was seen and evaluated by the anesthesia team who deemed them fit for surgery. The site was marked, the patient was willing to proceed with the procedure. The patient was transferred to the operative suite by the Department of anesthesia. They were then drifted off to sleep by the department anesthesia and GETA was performed. The patient tolerated this well. [Truong catheter was placed by nursing staff, atraumatically]. Once confirmation of lines and ventilation the patient was transferred to a [prone Nolan table very carefully]. All bony prominences including wrists, elbows, axilla, chest, hips, and thighs, and feet were padded very well. Special attention was paid to the genitalia and these were padded accordingly. SCDs were placed on bilateral lower extremities and were connected. Arms were well padded and placed [on arm boards up and out in the 90/90 position]. Once in position, again we confirmed good ventilation capabilities and that lines were running appropriately. The patient's LUMBAR spine was then exposed. 1010s were placed outlining the incision site. Standard alcohol was used to clean the incision site and allowed to dry. Operative briefing was performed with all teams and everyone in agreement to proceed. The patient was then prepped and draped in a normal sterile fashion. Timeout was then performed and all parties were in agreement with the procedure to be performed. Skin incision was made over the area of interest in the bottom portion of his previous incision where there were two draining sinus tracts smaller than a pea size. These tracts and skin were ellipsed out of the skin and soft tissue. Di ssection was carried down and it was noted that deep there was a tract in the fascia so this was opened and a large amount of fluid was released again from the deep space. This was a mix of purulent and healing material as well as hematoma. Cultures were taken in this area and sent. We then debrided the area with curette, rongure and kinfe. Irricept was run through the incision and wound and hardware which was intact and in good position. There were no dural issues noted. Healing tissues noted around that area. We then used 1L betadine solution to irrigate and debride the wound. We then ran 6L of NSS through the wound with pulse lavage for irrigation while debriding soft tissues and bone with curette and rongure. Necrotic tissues were excised with rongure or knife and forceps. Once this was accomplished the area was inspected and appeared very clear without any signs of infective materials. Hardware was intact and there were no draining areas. A deep drain was placed and sewn into position. 2g Vancomycin powder was placed deep in the wound. Complex, layered closure was then done. Deep fascia closed with 0 vicryl, deep subq with 0 vicryl, superficial subq with 2-0 vicryl and skin with 2-0 nylon sutures in a simple fashion. Wound edges approximated well. The wound was then cleaned and dressed steril with a Prevena incisional vac. the drain was dressed with Sponge and tegaderm. Prevena had good suction. Drain had good output. The patient was transferred back to their hospital bed atraumatically. [Drain continued to hold suction and was in a good position]. Patient was then awakened and extubated by the department of anesthesia having tolerated the procedure very well with no complications. They were transferred to the postoperative care unit in stable condition.
[2023-07-03] MEDS ORDERED: SENNOSIDES-DOCUSATE SODIUM 1 EACH TAB PO SCH (09:00)
[2023-07-03 11:31] VITALS: BMI 22.6
[2023-07-03] MEDS: SENNOSIDES-DOCUSATE SODIUM 1 EACH TAB PO SCH (15:31)
[2023-07-03] MEDS: LACTULOSE 20 GM/30 ML CUP PO SCH (15:35)
[2023-07-03] MEDS: COLESEVELAM 625 MG TAB PO SCH (17:24)
[2023-07-03] MEDS: MEROPENEM 1 GM in SODIUM CHLORIDE 0.9% 100 ML IVPB SCH (17:24)
[2023-07-03] MEDS: PANTOPRAZOLE 40 MG TABLET PO SCH (17:24)
[2023-07-03 21:10] LABS: Glucose,Whole Blood 181 mg/dL (70-110)
[2023-07-03] MEDS: SPIRONOLACTONE 25 MG TAB PO SCH (21:55)
[2023-07-03] MEDS: LOSARTAN 25 MG TAB PO SCH (21:55)
[2023-07-03] MEDS: MAGNESIUM OXIDE 400 MG TAB PO SCH (21:55)
[2023-07-03] MEDS: FERROUS SULFATE 325 MG TAB PO SCH (21:55)
[2023-07-03] MEDS: POTASSIUM CHLORIDE ER 20 MEQ TAB.ER PO SCH (21:55)
--- NOTE | 2023-07-03 23:10 | P.CONS ---
History of Present Illness - Reason for Consult Consult date: 07/03/23 Delayed wound healing of the lumbar spine Requesting physician: Kamala Lopez - Chief Complaint Nonhealing wound to the lumbar spine x weeks - History of Present Illness Patient is a 67-year-old male with a past medical history of GERD for hypertension hyperlipidemia reflux and diabetes mellitus recent admission to the hospital with Streptococcus bacteremia and this patient who did have evidence of osteo discitis and epidural abscess requiring extensive thoracolumbar spine surgery patient was receiving outpatient cefazolin noticed to have some dehisce nce of the wound and delayed healing for the patient has been brought back to the hospital, the patient status post I&D with irrigation and debridement excisional lumbar spine skin and soft tissue and bones and complex 3 layer closure of the lumbar spine patient has been admitted to the hospital infectious disease was consulted for further management of antibiotic therapy patient was recently evaluated in the office on 06/30/2023 at which time we did obtain cultures which was growing gram-negative last night has his antibiotic was switched to cefepime at the time my evaluation today patient currently denies having any fever or any chills patient is breathing comfortably on room air denies any chest pain shortness of breath or cough no nausea no vomiting no abdominal pain or diarrhea pain to the thoracolumbar spine mostly dull aching to sharp mild to moderate intensity controlled with the pain medication. Patient did have a creatinine 0.52 no CBC was done today liver isms are normal CRP is 3.5 Review of Systems Positive point and negatives has been mentioned in the HPI, complete review of systems was performed and all other systems are negative Past Medical History Past Medical History: Diabetes Mellitus, GERD/Reflux, Hyperlipidemia, Hypertension, Osteoarthritis (OA) Additional Past Medical History / Comment(s): GOUT. LOWER BACK PAIN. HX OF COLON POLYP. ARTHRITIS KNEES. HX ESOPHAGEAL VARICES WITH BANDING., LIVER CIRRHOSIS., NON HEALING WOUND POST BACK SURGERY History of Any Multi-Drug Resistant Organisms: None Reported Past Surgical History: Back Surgery, Cholecystectomy, Joint Replacement, Orthopedic Surgery Additional Past Surgical History / Comment(s): Surgery for deviated septum, bilateral cataracts removed, right knee arthroscopy, wisdom teeth removed, EGD with ESOPHAGEAL BANDS at [facility], COLONOSCOPIES, left knee replacement., laminectomy, decompression & fusion. Past Anesthesia/Blood Transfusion Reactions: No Reported Reaction Additional Past Anesthesia/Blood Transfusion Reaction / Comm: Woke up once when IV infiltrated during EGD. multiple blood transfusions with no reaction Past Psychological History: No Psychological Hx Reported Smoking Status: Former smoker Past Alcohol Use History: Occasional Additional Past Alcohol Use History / Comment(s): STARTED SMOKING AT AGE 18, QUIT AT AGE 22, SMOKED 1/2 PPD. Past Drug Use History: None Reported - Past Family History Mother Family Medical History: No Reported History Medications and Allergies Home Medications Medication Instructions Recorded Confirmed Type Colesevelam [Welchol] 3 tab PO AC-SUPPER 09/18/14 07/02/23 History allopurinoL [Zyloprim] 300 mg PO DAILY 09/18/14 07/02/23 History Omeprazole 20 mg PO BID 03/07/21 07/02/23 History Ascorbic Acid [Vitamin C] 1,000 mg PO DAILY 01/28/23 07/02/23 History Aspirin [Adult Low Dose Aspirin EC] 81 mg PO DAILY 01/28/23 07/02/23 History Cholecalciferol [Vitamin D3 (25 50 mcg PO DAILY 04/22/23 07/02/23 History Mcg = 1000 Iu)] Acetaminophen Tab [Tylenol] 650 mg PO Q6HR PRN tab 05/07/23 07/02/23 Rx traMADol HCl [Ultram] 50 mg PO QID PRN #6 tab 05/07/23 07/02/23 Rx Ferrous Sulfate [Iron (65 MG 325 mg PO BID 06/03/23 07/02/23 History Elemental)] Furosemide [Lasix] 40 mg PO DAILY 06/03/23 07/02/23 History Furosemide [Lasix] 80 mg PO DAILY 06/03/23 07/02/23 History Lactulose [Cephulac] 20 gm PO BID 06/03/23 07/02/23 History Magnesium Hydroxide [Milk of 1 dose PO DIRECTED PRN 06/03/23 07/02/23 History Magnesia Concentrate] Magnesium Hydroxide [Milk of 2,400 mg PO DAILY 06/03/23 07/02/23 History Magnesia] Multivitamin/Iron/Folic Acid 1 tab PO DAILY 06/03/23 07/02/23 History [Centrum Adults Tablet] Na Phos,M-B/Na Phos,Di-Ba [Fleet 1 dose RECTAL DIRECTED PRN 06/03/23 07/02/23 History Adult] bisacodyL [Dulcolax] 10 mg RECTAL DAILY PRN 06/03/23 07/02/23 History guaiFENesin SYRUP 100MG/5ML 10 ml PO Q6HR PRN 06/03/23 07/02/23 History [Robitussin] Ipratropium-Albuterol Nebulize 3 ml INHALATION RT-QID PRN 06/10/23 07/02/23 History [Duoneb 0.5 mg-3 mg/3 ml Soln] Losartan [Cozaar] 25 mg PO BID 06/10/23 07/02/23 History Magnesium Oxide [Mag-Ox] 400 mg PO BID 06/10/23 07/02/23 History Sennosides-Docusate Sodium 2 tab PO DAILY 06/10/23 07/02/23 History [Senokot-S] Spironolactone [Aldactone] 50 mg PO BID 06/10/23 07/02/23 History Fluticasone Propionate 2 sprays EA NOSTRIL DAILY 07/01/23 07/02/23 History [Fluticasone Propionate Atlantic 50 mcg Nasal Atlantic] Hydrocortisone Cream 1 applic TOPICAL BID PRN 07/01/23 07/02/23 History [Hydrocortisone 1% Cream] Natural Tears 2 drop BOTH EYES TID PRN 07/01/23 07/02/23 History Artificial Tears-Hypromellose 2 drops BOTH EYES QID PRN ml 07/06/23 Rx [Artificial Tear Drops] Cyclobenzaprine [Flexeril] 5 mg PO TID PRN tab 07/06/23 Rx HYDROcodone/APAP 7.5-325MG [Excello 1 tab PO Q6HR PRN #12 tab 07/06/23 Rx 7.5-325] Heparin Sodium,Porcine (1 ml) 5,000 unit SQ Q12HR each 07/06/23 Rx [Heparin Sodium] Piperacillin-Tazobactam [Zosyn] 3.375 gm IVPB Q8HR #84 each 07/06/23 Rx Allergies Allergy/AdvReac Type Severity Reaction Status Date / Time Sulfa (Sulfonamide Allergy Rash/Hives Verified 07/01/23 10:40 Antibiotics) Physical Exam Vitals: Vital Signs Temp Pulse Resp BP BP Pulse Ox 07/03/23 07:18 98.3 F 107 H 18 100/64 07/03/23 01:35 98.6 F 07/03/23 00:16 94 18 100/66 100 07/02/23 20:30 111 H 107/71 98 07/02/23 20:15 98 107/67 99 07/02/23 20:00 101 H 124/74 07/02/23 19:45 98 122/58 07/02/23 19:30 96 132/81 99 07/02/23 19:15 88 126/68 07/02/23 19:00 96 126/78 100 07/02/23 18:45 94 120/79 100 07/02/23 18:30 97.5 F L 90 119/75 98 07/02/23 18:07 100 16 113/77 99 07/02/23 17:52 102 H 16 128/68 98 07/02/23 17:37 97.0 F L 116 H 16 119/75 99 Intake and Output 07/03/23 07/03/23 07/03/23 06:59 14:59 22:59 Other: Weight 67.6 kg GENERAL DESCRIPTION: Elderly male lying in bed, no distress. No tachypnea or accessory muscle of respiration use. HEENT: Shows Pallor , no scleral icterus. Oral mucous membrane is dry. No pharyngeal erythema or thrush NECK: Trachea central, no thyromegaly. LUNGS: Unlabored breathing. Clear to auscultation anteriorly. No wheeze or crackle. HEART: S1, S2, regular rate and rhythm. No loud murmur ABDOMEN: Soft, no tenderness , guarding or rigidity, no organomegaly EXTREMITIES: No edema of feet. SKIN: No rash, no masses palpable. Wound to the thoracolumbar spine is currently covered with a postop dressing NEUROLOGICAL: The patient is awake, alert, oriented x3, mood and affect normal. Results CBC & Chem 7: 07/06/23 05:34 07/06/23 05:34 Labs: Abnormal Lab Results - Last 24 Hours (Table) 07/03/23 07/03/23 Range/Units 07:01 07:01 ESR 41 H (0-20) mm/Hr Sodium 129 L (137-145) mmol/L Chloride 108 H (98-107) mmol/L Carbon Dioxide 18 L (22-30) mmol/L Creatinine 0.52 L (0.66-1.25) mg/dL Calcium 7.9 L (8.4-10.2) mg/dL Alkaline Phosphatase 142 H (38-126) U/L C-Reactive Protein 3.5 H (<1.0) mg/dL Total Protein 5.2 L (6.3-8.2) g/dL Albumin 2.1 L (3.5-5.0) g/dL Microbiology - Last 24 Hours (Table) 07/02/23 16:35 Gram Stain - Preliminary Other - Other Assessment and Plan (1) Delayed surgical wound healing Current Visit: Yes Status: Acute Code(s): T81.89XA - OTH COMPLICATIONS OF PROCEDURES, NEC, INIT SNOMED Code(s): 252901388 (2) Surgical site infection Current Visit: Yes Status: Acute Code(s): T81.49XA - INFECTION FOLLOWING A PROCEDURE, OTHER SURGICAL SITE, INIT SNOMED Code(s): 84065475 Plan: 1patient with extensive thoracolumbar spine surgery for osteodiscitis and paraspinal abscess in this patient who did have a History of Streptococcus agalactiae bacteremia however the spine culture were negative and the patient has been treated with the cefazolin and now with the delayed healing of the wound requiring extensive debridement the outpatient culture obtained on 06/30/2023 undergoing an drug-resistant Enterobacter in addition to the other gram-negative with ID sensitivities pending 2-we will discontinue cefepime 3-start the patient on meropenem while waiting for ID sensitivity on the other gram-negative 4-check inflammatory markers We will follow on clinical condition and cultures to further adjust medication if needed Thank you for this consultation we will follow the patient along with you Dictation was produced using [employer] dictation software. please excuse any grammatical, word or spelling errors. Time with Patient: Greater than 30
[2023-07-04 06:08] LABS: Glucose,Whole Blood 97 mg/dL (70-110)
[2023-07-04] MEDS: FUROSEMIDE 80 MG TAB PO SCH (06:36)
[2023-07-04] MEDS ORDERED: SENNOSIDES-DOCUSATE SODIUM 1 EACH TAB PO SCH (09:00)
[2023-07-04] MEDS: MAGNESIUM HYDROXIDE 2,400 MG/30 ML CUP PO SCH (09:03)
--- NOTE | 2023-07-04 09:03 | P.PN ---
Subjective Progress Note Date: 07/04/23 Principal diagnosis: 1. s/p irrigation and debridement of thoracolumbar spine 2. s/p osteodiscitis treatment with fusion and epidural abscess evacuation 3. complex medical patient Patient seen and examined this morning. Patient is resting comfortable in bed. He reports his pain is managed on current regimen. Surgical incision to the thoracolumbar spine, Prevana wound vac is intact and holding suction. Hemovac is present and patent with sangeous output. Patient denies any radicular symptoms or numbness feeling to the bilateral lower extremities. Patient verbalizes understanding. No acute concerns at this time. Objective - Vital Signs Vital signs: Vital Signs Temp 98.3 F 07/04/23 01:50 Pulse 96 07/04/23 01:50 Resp 20 07/04/23 01:50 BP 114/67 07/04/23 01:50 Pulse Ox 97 07/04/23 01:50 FiO2 Intake & Output 07/03/23 07/03/23 07/04/23 06:59 18:59 06:59 Output Total 120 Balance -120 Weight 67.6 kg Output: Drainage 120 Back 120 Other: # Voids 2 2 - Exam Physical Examination General: The patient is awake and alert, in no acute distress Skin: Skin is warm and dry with no obvious rashes or lesions. Surgical incision to the thoracolumbar spine, prevent a wound VAC is intact and patent. Hemovac is present at the right of the incision and patent. Eye: Pupils are equal, round and reactive to light, extra-ocular movements are intact; there is normal conjunctiva bilaterally. Neck: The neck is supple, there is no tenderness and ROM intact. Cardiovascular: There is a regular rate and rhythm. No murmur, rub or gallop is appreciated. Respiratory: Lungs are clear to auscultation, respirations are non-labored, breath sounds are equal. Gastrointestinal: Soft, non-distended, non-tender abdomen. Back: There is no tenderness to palpation in the midline, paralumbar, parathoracic or buttocks region. There is no obvious deformity . Musculoskeletal: ROM limited secondary to pain and stiffness from surgical procedure. Muscle strength in all major muscle groups of bilateral upper extremities 5/5, bilateral lower extremities 4/5. Neurological: CN 2-12 intact. There are no obvious motor or sensory deficits. Movement and coordination equal and intact. Sensory exam to light touch intact C5-T1 and intact from L2-S1. Reflexes 2/4 in bilateral upper and lower extremities. Negative Hoffmans, babinski, and clonus signs. Psychiatric: Cooperative, appropriate mood & affect, normal judgment. - Labs CBC & Chem 7: 07/03/23 07:01 Labs: Abnormal Lab Results - Last 24 Hours (Table) 07/03/23 07/03/23 07/03/23 Range/Units 07:01 07:01 21:03 ESR 41 H (0-20) mm/Hr Sodium 129 L (137-145) mmol/L Chloride 108 H (98-107) mmol/L Carbon Dioxide 18 L (22-30) mmol/L Creatinine 0.52 L (0.66-1.25) mg/dL POC Glucose (mg/dL) 181 H (70-110) mg/dL Calcium 7.9 L (8.4-10.2) mg/dL Alkaline Phosphatase 142 H (38-126) U/L C-Reactive Protein 3.5 H (<1.0) mg/dL Total Protein 5.2 L (6.3-8.2) g/dL Albumin 2.1 L (3.5-5.0) g/dL Microbiology - Last 24 Hours (Table) 07/02/23 16:35 Gram Stain - Preliminary Other - Other Assessment and Plan Assessment: Postop day 2: Irrigation and debridement of thoracolumbar wound 1. s/p irrigation and debridement of thoracolumbar spine 2. s/p osteodiscitis treatment with fusion and epidural abscess evacuation 3. complex medical patient Plan: -Appreciate peoplesoft consultant and team management. -Lumbar wound cultures pending -Activity: Ambulate QID, OOB all meals, up and about, limit lifting bending twisting to less than 5 lbs. Use walker or cane if needed for stability. -Daily PT/OT, increase ambulation strength and balance. -Pain control: Adequate at this time -Meds: reviewed -GI ppx: senna, Miralax -DVT PPX: Heparin -Hygiene: Maintain dressing clean and dry. Meticulous cleaning after BMs away from the incision site -Drains: Maintain for now. Continue to monitor and record output q shift. Maintain Prevana wound vac. -Encourage IS 10x/hr -Dispo: Clincally pending, will return to [facility] at discharge *I reviewed and discussed this case with my attending Dr. Narayanan, whom has reviewed this chart and films and is in agreement with assessment and plan of care as outlined above. I have personally seen and examined the patient, performed the documentation and the assessment and plan as written. Number of minutes spent on the visit: 20m.
[2023-07-04] MEDS: ASCORBIC ACID 500 MG TAB PO SCH (09:04)
[2023-07-04] MEDS: allopurinoL 300 MG TAB PO SCH (09:04)
[2023-07-04] MEDS: CHOLECALCIFEROL 25 MCG (1000 IU) TABLET PO SCH (09:04)
[2023-07-04 10:10] LABS: Basophils # (A) 0.06 X 10*3/uL (0.00-0.10); Basophils % (A) 1.1 %; Eosinophils # (A) 0 X 10*3/uL (0.04-0.35); Eosinophils % (A) 0 %; HGB 7.9 g/dL (13.0-17.0); Lymphocytes # (A) 1.24 X 10*3/uL (0.90-5.00); Lymphocytes % (A) 21.8 %; MCH 31.7 pg (27.0-32.0); MCHC 31.6 g/dL (32.0-37.0); MCV 100.4 FL (80.0-97.0); Mean Platelet Volume 10.4 FL (9.5-12.2); Monocytes # (A) 0.65 X 10*3/uL (0.20-1.00); Monocytes % (A) 11.4 %; NRBC Per 100 WBC 0 X 10*3/uL (0.00-0.01); Neutrophils # (A) 3.68 X 10*3/uL (1.80-7.70); Neutrophils % (A) 64.6 %; Platelet Count 160 X 10*3/uL (140-440); RBC 2.49 X 10*6/uL (4.40-5.60); RDW 17.4 % (11.5-14.5); WBC 5.69 X 10*3/uL (4.50-10.00)
--- NOTE | 2023-07-04 10:45 | P.CONS ---
History of Present Illness - Reason for Consult Consult date: 07/03/23 Medical management - Chief Complaint Medical management - History of Present Illness 67-year-old male patient with history of hypertension, hyperlipidemia, diabetes mellitus, osteoarthritis, presents to the hospital with concern about dehiscence and delayed healing of the surgical wound; patient was recently admitted to the hospital with streptococcal bacteremia and was found to have osteomyelitis and discitis and epidural abscess; patient underwent thoracolumbar spinal surgery and was sent home on IV cefepime; patient reports she was doing well when he was noted to have some dehiscence of the surgical wound and was recommended to present back to the hospital; patient was taken to the OR for irrigation and debridement of lumbar spinal wound with excision of soft tissue and bones and underwent complex 3 layer closure; he has been admitted for further evaluation and recommendations by ID for antibiotic therapy Blood work completed reveals a sodium level of 129, potassium of 5.1, BUNs/ creatinine of 13/0.52, CRP of 3.5 Review of Systems CONSTITUTIONAL: No fever, no malaise, no fatigue. HEENT: No recent visual problems or hearing problems. Denied any sore throat. CARDIOVASCULAR: No chest pain, orthopnea, PND, no palpitations, no syncope. PULMONARY: No shortness of breath, no cough, no hemoptysis. GASTROINTESTINAL: No diarrhea, no nausea, no vomiting, no abdominal pain. NEUROLOGICAL: No headaches, no weakness, no numbness. HEMATOLOGICAL: Denies any bleeding or petechiae. GENITOURINARY: Denies any burning micturition, frequency, or urgency. MUSCULOSKELETAL/RHEUMATOLOGICAL: Denies any joint pain, swelling, or any muscle pain. ENDOCRINE: Denies any polyuria or polydipsia. The rest of the 14-point review of systems is negative. Past Medical History Past Medical History: Diabetes Mellitus, GERD/Reflux, Hyperlipidemia, Hypertension, Osteoarthritis (OA) Additional Past Medical History / Comment(s): GOUT. LOWER BACK PAIN. HX OF COLON POLYP. ARTHRITIS KNEES. HX ESOPHAGEAL VARICES WITH BANDING., LIVER CIRRHOSIS., NON HEALING WOUND POST BACK SURGERY History of Any Multi-Drug Resistant Organisms: None Reported Past Surgical History: Back Surgery, Cholecystectomy, Joint Replacement, Orthopedic Surgery Additional Past Surgical History / Comment(s): Surgery for deviated septum, bilateral cataracts removed, right knee arthroscopy, wisdom teeth removed, EGD with ESOPHAGEAL BANDS at [place], COLONOSCOPIES, left knee replacement., laminectomy, decompression & fusion. Past Anesthesia/Blood Transfusion Reactions: No Reported Reaction Additional Past Anesthesia/Blood Transfusion Reaction / Comm: Woke up once when IV infiltrated during EGD. multiple blood transfusions with no reaction Past Psychological History: No Psychological Hx Reported Smoking Status: Former smoker Past Alcohol Use History: Occasional Additional Past Alcohol Use History / Comment(s): STARTED SMOKING AT AGE 18, QUIT AT AGE 22, SMOKED 1/2 PPD. Past Drug Use History: None Reported - Past Family History Mother Family Medical History: No Reported History Medications and Allergies Home Medications Medication Instructions Recorded Confirmed Type Colesevelam [Welchol] 3 tab PO AC-SUPPER 09/18/14 07/02/23 History allopurinoL [Zyloprim] 300 mg PO DAILY 09/18/14 07/02/23 History Omeprazole 20 mg PO BID 03/07/21 07/02/23 History Ascorbic Acid [Vitamin C] 1,000 mg PO DAILY 01/28/23 07/02/23 History Aspirin [Adult Low Dose Aspirin EC] 81 mg PO DAILY 01/28/23 07/02/23 History Cholecalciferol [Vitamin D3 (25 50 mcg PO DAILY 04/22/23 07/02/23 History Mcg = 1000 Iu)] Acetaminophen Tab [Tylenol] 650 mg PO Q6HR PRN tab 05/07/23 07/02/23 Rx traMADol HCl [Ultram] 50 mg PO QID PRN #6 tab 05/07/23 07/02/23 Rx Ferrous Sulfate [Feosol] 325 mg PO BID 06/03/23 07/02/23 History Furosemide [Lasix] 40 mg PO DAILY 06/03/23 07/02/23 History Furosemide [Lasix] 80 mg PO DAILY 06/03/23 07/02/23 History Lactulose [Cephulac] 20 gm PO BID 06/03/23 07/02/23 History Magnesium Hydroxide [Milk of 1 dose PO DIRECTED PRN 06/03/23 07/02/23 History Magnesia Concentrate] Magnesium Hydroxide [Milk of 2,400 mg PO DAILY 06/03/23 07/02/23 History Magnesia] Multivitamin/Iron/Folic Acid 1 tab PO DAILY 06/03/23 07/02/23 History [Centrum Adults Tablet] Na Phos,M-B/Na Phos,Di-Ba [Fleet 1 dose RECTAL DIRECTED PRN 06/03/23 07/02/23 History Adult] bisacodyL [Dulcolax] 10 mg RECTAL DAILY PRN 06/03/23 07/02/23 History guaiFENesin SYRUP 100MG/5ML 10 ml PO Q6HR PRN 06/03/23 07/02/23 History [Robitussin] Ipratropium-Albuterol Nebulize 3 ml INHALATION RT-QID PRN 06/10/23 07/02/23 History [Duoneb 0.5 mg-3 mg/3 ml Soln] Losartan [Cozaar] 25 mg PO BID 06/10/23 07/02/23 History Magnesium Oxide [Mag-Ox] 400 mg PO BID 06/10/23 07/02/23 History Potassium Chloride 20 meq PO BID 06/10/23 07/02/23 History Sennosides-Docusate Sodium 2 tab PO DAILY 06/10/23 07/02/23 History [Senokot-S] Spironolactone [Aldactone] 50 mg PO BID 06/10/23 07/02/23 History ceFAZolin [Kefzol] 2,000 mg IVPB Q8HR 06/10/23 07/02/23 History Fluticasone Propionate 2 sprays EA NOSTRIL DAILY 07/01/23 07/02/23 History [Fluticasone Propionate [place] 50 mcg Nasal [place]] Hydrocortisone Cream 1 applic TOPICAL BID PRN 07/01/23 07/02/23 History [Hydrocortisone 1% Cream] Natural Tears 2 drop BOTH EYES TID PRN 07/01/23 07/02/23 History Allergies Allergy/AdvReac Type Severity Reaction Status Date / Time Sulfa (Sulfonamide Allergy Rash/Hives Verified 07/01/23 10:40 Antibiotics) Physical Exam Vitals: Vital Signs Temp Pulse Resp BP BP Pulse Ox 07/03/23 07:18 98.3 F 107 H 18 100/64 07/03/23 01:35 98.6 F 07/03/23 00:16 94 18 100/66 100 07/02/23 20:30 111 H 107/71 98 07/02/23 20:15 98 107/67 99 07/02/23 20:00 101 H 124/74 07/02/23 19:45 98 122/58 07/02/23 19:30 96 132/81 99 07/02/23 19:15 88 126/68 07/02/23 19:00 96 126/78 100 07/02/23 18:45 94 120/79 100 07/02/23 18:30 97.5 F L 90 119/75 98 07/02/23 18:07 100 16 113/77 99 07/02/23 17:52 102 H 16 128/68 98 07/02/23 17:37 97.0 F L 116 H 16 119/75 99 07/02/23 14:33 98.7 F 101 H 18 172/84 99 Intake and Output 07/02/23 07/03/23 07/03/23 22:59 06:59 14:59 Intake Total 750 Output Total 20 Balance 730 Intake: IV 750 Output: Estimated Blood Loss 20 Other: Weight 67.6 kg General appearance: Present: average body habitus, cooperative, no acute distress Eyes: Present: anicteric sclerae, EOMI, PERRLA, normal appearance ENT: Present: hearing grossly normal, normal oropharynx Neck: Present: normal ROM. Absent: lymphadenopathy, rigidity, thyromegaly Carotids: negative: bruit present Thyroid: bilateral: normal size, negative: enlarged, nodule Respiratory: bilateral: CTA, negative: rales, rhonchi, wheezing Cardiovascular: regular: normal: S1, S2 Abnormal Heart Sounds: Absent: systolic murmur, diastolic murmur Gastrointestinal: Present: normal bowel sounds, soft. Absent: distended, organomegaly, tenderness Integumentary: Present: normal turgor. Absent: jaundiced, rash, ulcer Neurologic: Present: CNII-XII intact. Absent: focal deficits Musculoskeletal: Present: gait normal, strength equal bilaterally Psychiatric: Present: A&O x's 3, appropriate affect, intact judgment & insight Results CBC & Chem 7: 07/04/23 06:12 07/03/23 07:01 Labs: Abnormal Lab Results - Last 24 Hours (Table) 07/03/23 Range/Units 07:01 Sodium 129 L (137-145) mmol/L Chloride 108 H (98-107) mmol/L Carbon Dioxide 18 L (22-30) mmol/L Creatinine 0.52 L (0.66-1.25) mg/dL Calcium 7.9 L (8.4-10.2) mg/dL Alkaline Phosphatase 142 H (38-126) U/L C-Reactive Protein 3.5 H (<1.0) mg/dL Total Protein 5.2 L (6.3-8.2) g/dL Albumin 2.1 L (3.5-5.0) g/dL Assessment and Plan Assessment: 1. Extensive thoracolumbar osteodiscitis and paraspinal abscess -- Patient is status post incision and drainage with irrigation and debridement, excision of lumbar spine skin, soft tissue and bone -- POD #0 -- Patient remains on IV antibiotics; monitor CBC, CRP and procalcitonin -- ID is consulted for further recommendation on IV antibiotic therapy 2. Hyponatremia; patient has been placed on IV fluids in form of normal saline at a rate of 75 cc an hour; will monitor electrolytes and make further recommendations 3. Hypertension; Aldactone 50 mg twice daily; losartan 25 mg twice daily; Lasix 120 mg daily 4. Hyperlipidemia; WelChol 625 mg daily 5. Hyperuricemia/gout; allopurinol 300 mg daily DVT prophylaxis; SCDs/subcu heparin CODE STATUS; full code
[2023-07-04] MEDS: FLUTICASONE 50MCG/SPRAY NASAL 16GM EA NOSTRIL SCH (11:15)
[2023-07-04 11:24] LABS: Erythrocyte Sedimentation Rate 26 mm/Hr (0-20)
[2023-07-04 11:30] LABS: BUN/Creat Ratio 18.57 Ratio (12.00-20.00); Carbon Dioxide 18.7 mmol/L (21.6-31.8); Chloride 103 mmol/L (96-109); Glucose 92 mg/dL (70-110); Potassium 4.8 mmol/L (3.5-5.5); Sodium 132 mmol/L (135-145)
[2023-07-04] MEDS: ARTIFICIAL TEARS-HYPROMELLOSE DROPS 15 ML BTL BOTH EYES PRN (12:08)
[2023-07-04] MEDS: FUROSEMIDE 40 MG TAB PO SCH (14:13)
--- NOTE | 2023-07-04 15:16 | P.PN ---
Subjective Progress Note Date: 07/04/23 Principal diagnosis: Thoracolumbar surgical site infection Patient is a 67-year-old male with a past medical history of GERD for hypertension hyperlipidemia reflux and diabetes mellitus recent admission to the hospital with Streptococcus bacteremia and this patient who did have evidence of osteo discitis and epidural abscess requiring extensive thoracolumbar spine colon rgery patient was receiving outpatient cefazolin admitted to the hospital with delayed healing of his wound s/p irrigation and debridement of the thoracolumbar spine. On today's evaluation that is 07/04/2023, the patient continues to be afebrile, the patient is on room air and breathing comfortably, the Pt denies having any chest pain or cough, the patient denies having any abdominal pain no vomiting or any diarrhea has been reported by the nursing staff, pain to the spine area controlled with the current medication. Patient white count of 5.16, creatinine 0.7 sed rate of 26 CRP 3.40 OR culture growing gram-negative bacilli outpatient culture positive for Pseudomonas aeruginosa and Enterobacter Objective - Vital Signs Vital signs: Vital Signs Temp 98.2 F 07/04/23 07:42 Pulse 101 H 07/04/23 07:42 Resp 18 07/04/23 07:42 BP 103/60 07/04/23 07:42 Pulse Ox 97 07/04/23 07:42 FiO2 Intake & Output 07/03/23 07/04/23 07/04/23 18:59 06:59 18:59 Output Total 120 180 Balance -120 -180 Weight 67.6 kg Output: Drainage 120 180 Back 120 180 Other: # Voids 2 2 - Exam GENERAL DESCRIPTION: An elderly male up in the chair in no distress RESPIRATORY SYSTEM: Unlabored breathing , decreased breath sounds at bases HEART: S1 S2 regular rate and rhythm , ABDOMEN: Soft , no tenderness EXTREMITIES: No edema feet, thoracolumbar incision covered with dressing - Labs CBC & Chem 7: 07/04/23 06:12 07/04/23 06:12 Labs: Abnormal Lab Results - Last 24 Hours (Table) 07/03/23 07/04/23 07/04/23 Range/Units 21:03 06:12 06:12 RBC 2.49 L (4.40-5.60) X 10*6/uL Hgb 7.9 L (13.0-17.0) g/dL Hct 25.0 L (39.6-50.0) % MCV 100.4 H (80.0-97.0) FL MCHC 31.6 L (32.0-37.0) g/dL RDW 17.4 H (11.5-14.5) % Immature Gran # 0.06 H (0.00-0.04) X 10*3/uL Eosinophils # 0 L (0.04-0.35) X 10*3/uL ESR 26 H (0-20) mm/Hr Sodium (135-145) mmol/L Carbon Dioxide (21.6-31.8) mmol/L POC Glucose (mg/dL) 181 H (70-110) mg/dL Calcium (8.7-10.3) mg/dL C-Reactive Protein (0.00-0.80) mg/dL Procalcitonin 0.11 H (0.02-0.09) ng/mL 07/04/23 Range/Units 06:12 RBC (4.40-5.60) X 10*6/uL Hgb (13.0-17.0) g/dL Hct (39.6-50.0) % MCV (80.0-97.0) FL MCHC (32.0-37.0) g/dL RDW (11.5-14.5) % Immature Gran # (0.00-0.04) X 10*3/uL Eosinophils # (0.04-0.35) X 10*3/uL ESR (0-20) mm/Hr Sodium 132 L (135-145) mmol/L Carbon Dioxide 18.7 L (21.6-31.8) mmol/L POC Glucose (mg/dL) (70-110) mg/dL Calcium 8.0 L (8.7-10.3) mg/dL C-Reactive Protein 3.40 H (0.00-0.80) mg/dL Procalcitonin (0.02-0.09) ng/mL Microbiology - Last 24 Hours (Table) 07/02/23 16:35 Gram Stain - Preliminary Other - Other Wound Culture - Preliminary Gram Neg Bacilli Assessment and Plan (1) Pseudomonas aeruginosa infection Current Visit: Yes Status: Acute Code(s): A49.8 - OTHER BACTERIAL INFECTIONS OF UNSPECIFIED SITE SNOMED Code(s): 10001776 (2) Abscess in epidural space of lumbar spine Current Visit: No Status: Acute Code(s): G06.1 - INTRASPINAL ABSCESS AND GRANULOMA SNOMED Code(s): 962165935 Plan: 1patient with extensive thoracolumbar spine surgery for osteodiscitis and paraspinal abscess in this patient who did have a History of Streptococcus agalactiae bacteremia however the spine culture were negative and the patient has been treated with the cefazolin and now with the delayed healing of the wound requiring extensive debridement the outpatient culture obtained on 06/30/2023 undergoing an drug-resistant Enterobacter as well as Pseudomonas aeruginosa 2-we will discontinue meropenem and start the patient on Zosyn 3.375 g every 8 hours at the bedside questions were answered Dictation was produced using [employer] dictation software. please excuse any grammatical, word or spelling errors. Time with Patient: Less than 30
--- NOTE | 2023-07-04 15:39 | P.PN ---
Subjective Progress Note Date: 07/04/23 67-year-old male patient with history of hypertension, hyperlipidemia, diabetes mellitus, osteoarthritis, presents to the hospital with concern about dehiscence and delayed healing of the surgical wound; patient was recently admitted to the hospital with streptococcal bacteremia and was found to have osteomyelitis and discitis and epidural abscess; patient underwent thoracolumbar spinal surgery and was sent home on IV cefepime; patient reports she was doing well when he was noted to have some dehiscence of the surgical wound and was recommended to present back to the hospital; patient was taken to the OR for irrigation and debridement of lumbar spinal wound with excision of soft tissue and bones and underwent complex 3 layer closure; he has been admitted for further evaluation and recommendations by ID for antibiotic therapy Blood work completed reveals a sodium level of 129, potassium of 5.1, BUNs/creatinine of 13/0.52, CRP of 3.5 Objective - Vital Signs Vital signs: Vital Signs Temp 98.2 F 07/04/23 07:42 Pulse 101 H 07/04/23 07:42 Resp 18 07/04/23 07:42 BP 103/60 07/04/23 07:42 Pulse Ox 97 07/04/23 07:42 FiO2 Intake & Output 07/03/23 07/04/23 07/04/23 18:59 06:59 18:59 Output Total 120 180 Balance -120 -180 Weight 67.6 kg Output: Drainage 120 180 Back 120 180 Other: # Voids 2 2 - Exam General appearance: Present: average body habitus, cooperative, no acute distress Eyes: Present: anicteric sclerae, EOMI, PERRLA, normal appearance ENT: Present: hearing grossly normal, normal oropharynx Neck: Present: normal ROM. Absent: lymphadenopathy, rigidity, thyromegaly Thyroid: bilateral: normal size, negative: enlarged, nodule Respiratory: bilateral: CTA, negative: rales, rhonchi, wheezing Cardiovascular: regular: normal: S1, S2 Gastrointestinal: Present: normal bowel sounds, soft. Absent: distended, orga nomegaly, tenderness Neurologic: Present: CNII-XII intact. Absent: focal deficits Musculoskeletal: Present: gait normal, strength equal bilaterally Psychiatric: Present: A&O x's 3, appropriate affect, intact judgment & insight - Labs CBC & Chem 7: 07/04/23 06:12 07/04/23 06:12 Labs: Abnormal Lab Results - Last 24 Hours (Table) 07/03/23 07/03/23 07/04/23 Range/Units 07:01 21:03 06:12 RBC 2.49 L (4.40-5.60) X 10*6/uL Hgb 7.9 L (13.0-17.0) g/dL Hct 25.0 L (39.6-50.0) % MCV 100.4 H (80.0-97.0) FL MCHC 31.6 L (32.0-37.0) g/dL RDW 17.4 H (11.5-14.5) % Immature Gran # 0.06 H (0.00-0.04) X 10*3/uL Eosinophils # 0 L (0.04-0.35) X 10*3/uL ESR 41 H (0-20) mm/Hr POC Glucose (mg/dL) 181 H (70-110) mg/dL Microbiology - Last 24 Hours (Table) 07/02/23 16:35 Gram Stain - Preliminary Other - Other Wound Culture - Preliminary Gram Neg Bacilli Assessment and Plan Assessment: 1. Extensive thoracolumbar osteodiscitis and paraspinal abscess -- Patient is status post incision and drainage with irrigation and debridement, excision of lumbar spine skin, soft tissue and bone -- POD #0 -- Patient remains on IV antibiotics; monitor CBC, CRP and procalcitonin -- ID is consulted for further recommendation on IV antibiotic therapy 2. Hyponatremia; patient has been placed on IV fluids in form of normal saline at a rate of 75 cc an hour; will monitor electrolytes and make further recommendations 3. Hypertension; Aldactone 50 mg twice daily; losartan 25 mg twice daily; Lasix 120 mg daily 4. Hyperlipidemia; WelChol 625 mg daily 5. Hyperuricemia/gout; allopurinol 300 mg daily DVT prophylaxis; SCDs/subcu heparin CODE STATUS; full code
[2023-07-04] MEDS: PIPERACILLIN-TAZOBACTAM 3.375 GM in SODIUM CHLORIDE 0.9% 100 ML IVPB SCH (16:49)
[2023-07-04] MEDS: HEPARIN SODIUM,PORCINE 5,000 UNIT/ML 1 ML VIAL SQ SCH (22:13)
[2023-07-05 08:43] LABS: BUN/Creat Ratio 19.88 Ratio (12.00-20.00); Blood Urea Nitrogen 15.9 mg/dL (9.0-27.0); Chloride 104 mmol/L (96-109); Glucose 99 mg/dL (70-110); Potassium 5.2 mmol/L (3.5-5.5); Sodium 133 mmol/L (135-145)
--- NOTE | 2023-07-05 08:53 | P.PN ---
Subjective Progress Note Date: 07/05/23 Principal diagnosis: 1. s/p irrigation and debridement of thoracolumbar spine 2. s/p osteodiscitis treatment with fusion and epidural abscess evacuation 3. complex medical patient Patient seen and examined this morning. Patient is resting comfortable in bed. He reports his pain is managed on current regimen. Surgical incision to the thoracolumbar spine, Prevana wound vac is intact and holding suction. Hemovac is present and patent with 80ml sangeous output overnight. No concerns overnight. Objective - Vital Signs Vital signs: Vital Signs Temp 98.3 F 07/05/23 07:32 Pulse 102 H 07/05/23 07:32 Resp 18 07/05/23 07:32 BP 109/68 07/05/23 07:32 Pulse Ox 96 07/05/23 07:32 FiO2 Intake & Output 07/04/23 07/05/23 07/05/23 18:59 06:59 18:59 Output Total 80 Balance -80 Output: Drainage 80 Back 80 Other: # Voids 2 - Exam Physical Examination General: The patient is awake and alert, in no acute distress Skin: Skin is warm and dry with no obvious rashes or lesions. Surgical incision to the thoracolumbar spine, prevent a wound VAC is intact and patent. Hemovac is present at the right of the incision and patent. Eye: Pupils are equal, round and reactive to light, extra-ocular movements are intact; there is normal conjunctiva bilaterally. Neck: The neck is supple, there is no tenderness and ROM intact. Cardiovascular: There is a regular rate and rhythm. No murmur, rub or gallop is appreciated. Respiratory: Lungs are clear to auscultation, respirations are non-labored, breath sounds are equal. Gastrointestinal: Soft, non-distended, non-tender abdomen. Back: There is no tenderness to palpation in the midline, paralumbar, parathoracic or buttocks region. There is no obvious deformity . Musculoskeletal: ROM limited secondary to pain and stiffness from surgical procedure. Muscle strength in all major muscle groups of bilateral upper extremities 5/5, bilateral lower extremities 4/5. Neurological: CN 2-12 intact. There are no obvious motor or sensory deficits. Movement and coordination equal and intact. Sensory exam to light touch intact C5-T1 and intact from L2-S1. Reflexes 2/4 in bilateral upper and lower extremities. Negative Hoffmans, babinski, and clonus signs. Psychiatric: Cooperative, appropriate mood & affect, normal judgment. - Labs CBC & Chem 7: 07/04/23 06:12 07/05/23 05:13 Labs: Abnormal Lab Results - Last 24 Hours (Table) 07/04/23 07/04/23 07/04/23 Range/Units 06:12 06:12 06:12 RBC 2.49 L (4.40-5.60) X 10*6/uL Hgb 7.9 L (13.0-17.0) g/dL Hct 25.0 L (39.6-50.0) % MCV 100.4 H (80.0-97.0) FL MCHC 31.6 L (32.0-37.0) g/dL RDW 17.4 H (11.5-14.5) % Immature Gran # 0.06 H (0.00-0.04) X 10*3/uL Eosinophils # 0 L (0.04-0.35) X 10*3/uL ESR 26 H (0-20) mm/Hr Sodium 132 L (135-145) mmol/L Carbon Dioxide 18.7 L (21.6-31.8) mmol/L Calcium 8.0 L (8.7-10.3) mg/dL C-Reactive Protein 3.40 H (0.00-0.80) mg/dL Procalcitonin 0.11 H (0.02-0.09) ng/mL 07/05/23 Range/Units 05:13 RBC (4.40-5.60) X 10*6/uL Hgb (13.0-17.0) g/dL Hct (39.6-50.0) % MCV (80.0-97.0) FL MCHC (32.0-37.0) g/dL RDW (11.5-14.5) % Immature Gran # (0.00-0.04) X 10*3/uL Eosinophils # (0.04-0.35) X 10*3/uL ESR (0-20) mm/Hr Sodium 133 L (135-145) mmol/L Carbon Dioxide 19.0 L (21.6-31.8) mmol/L Calcium 8.0 L (8.7-10.3) mg/dL C-Reactive Protein (0.00-0.80) mg/dL Procalcitonin (0.02-0.09) ng/mL Microbiology - Last 24 Hours (Table) 07/03/23 16:34 Blood Culture - Preliminary Blood 07/02/23 16:35 Gram Stain - Preliminary Other - Other Wound Culture - Preliminary Gram Neg Bacilli Assessment and Plan Assessment: Postop day 3: Irrigation and debridement of thoracolumbar wound 1. s/p irrigation and debridement of thoracolumbar spine 2. s/p osteodiscitis treatment with fusion and epidural abscess evacuation 3. complex medical patient Plan: -Appreciate proposal consultant and team management. -Awaiting discharge recommendations from Infectious disease -Activity: Ambulate QID, OOB all meals, up and about, limit lifting bending twisting to less than 5 lbs. Use walker or cane if needed for stability. -Daily PT/OT, increase ambulation strength and balance. -Pain control: Adequate at this time -Meds: reviewed -GI ppx: senna, Miralax -DVT PPX: Heparin -Hygiene: Maintain dressing clean and dry. Meticulous cleaning after BMs away from the incision site -Drains: Maintain for now. Continue to monitor and record output q shift. Maintain Prevana wound vac. -Encourage IS 10x/hr -Dispo: Clincally pending, will return to [facility] at discharge *I reviewed and discussed this case with my attending Dr. Narayanan, whom has reviewed this chart and films and is in agreement with assessment and plan of care as outlined above. I have personally seen and examined the patient, performed the documentation and the assessment and plan as written. Number of minutes spent on the visit: 20m.
[2023-07-05 09:28] LABS: Basophils # (A) 0.05 X 10*3/uL (0.00-0.10); Basophils % (A) 0.8 %; Eosinophils # (A) 0 X 10*3/uL (0.04-0.35); Eosinophils % (A) 0 %; HCT 23.5 % (39.6-50.0); HGB 7.4 g/dL (13.0-17.0); Lymphocytes # (A) 1.36 X 10*3/uL (0.90-5.00); Lymphocytes % (A) 22.4 %; MCH 31.4 pg (27.0-32.0); MCHC 31.5 g/dL (32.0-37.0); MCV 99.6 FL (80.0-97.0); Mean Platelet Volume 10.5 FL (9.5-12.2); Monocytes # (A) 0.56 X 10*3/uL (0.20-1.00); Monocytes % (A) 9.2 %; NRBC Per 100 WBC 0 X 10*3/uL (0.00-0.01); Platelet Count 161 X 10*3/uL (140-440); RBC 2.36 X 10*6/uL (4.40-5.60); RDW 17.3 % (11.5-14.5); WBC 6.07 X 10*3/uL (4.50-10.00)
[2023-07-05 11:32] LABS: Glucose,Whole Blood 150 mg/dL (70-110)
[2023-07-05 16:29] LABS: Glucose,Whole Blood 164 mg/dL (70-110)
--- NOTE | 2023-07-05 17:47 | P.PN ---
Subjective Progress Note Date: 07/05/23 Principal diagnosis: Thoracolumbar surgical site infection Patient is a 67-year-old male with a past medical history of GERD for hypertension hyperlipidemia reflux and diabetes mellitus recent admission to the hospital with Streptococcus bacteremia and this patient who did have evidence of osteo discitis and epidural abscess requiring extensive thoracolumbar spine colon rgery patient was receiving outpatient cefazolin admitted to the hospital with delayed healing of his wound s/p irrigation and debridement of the thoracolumbar spine. On today's evaluation that is 07/05/2023, Patient is afebrile patient is currently on room air and denies having any shortness of breath, the patient denies any chest pain or cough, the patient denies any nausea vomiting did not have any abdominal pain and no diarrhea pain to the lumbar spine area is currently controlled. Patient did have white count of 6.07, creatinine 0.8 OR cultures growing Enterobacter Objective - Vital Signs Vital signs: Vital Signs Temp 98.3 F 07/05/23 07:32 Pulse 102 H 07/05/23 08:40 Resp 18 07/05/23 08:40 BP 109/68 07/05/23 07:32 Pulse Ox 96 07/05/23 07:32 FiO2 Intake & Output 07/04/23 07/05/23 07/05/23 18:59 06:59 18:59 Output Total 80 Balance -80 Output: Drainage 80 Back 80 Other: # Voids 2 - Exam GENERAL DESCRIPTION: An elderly male up in the chair in no distress RESPIRATORY SYSTEM: Unlabored breathing , decreased breath sounds at bases HEART: S1 S2 regular rate and rhythm , ABDOMEN: Soft , no tenderness EXTREMITIES: No edema feet, thoracolumbar incision covered with dressing - Labs CBC & Chem 7: 07/05/23 05:13 07/05/23 05:13 Labs: Abnormal Lab Results - Last 24 Hours (Table) 07/04/23 07/05/23 07/05/23 Range/Units 06:12 05:13 05:13 RBC 2.36 L (4.40-5.60) X 10*6/uL Hgb 7.4 L (13.0-17.0) g/dL Hct 23.5 L (39.6-50.0) % MCV 99.6 H (80.0-97.0) FL MCHC 31.5 L (32.0-37.0) g/dL RDW 17.3 H (11.5-14.5) % Immature Gran # 0.10 H (0.00-0.04) X 10*3/uL Eosinophils # 0 L (0.04-0.35) X 10*3/uL Sodium 133 L (135-145) mmol/L Carbon Dioxide 19.0 L (21.6-31.8) mmol/L POC Glucose (mg/dL) (70-110) mg/dL Calcium 8.0 L (8.7-10.3) mg/dL C-Reactive Protein 3.40 H (0.00-0.80) mg/dL 07/05/23 Range/Units 11:31 RBC (4.40-5.60) X 10*6/uL Hgb (13.0-17.0) g/dL Hct (39.6-50.0) % MCV (80.0-97.0) FL MCHC (32.0-37.0) g/dL RDW (11.5-14.5) % Immature Gran # (0.00-0.04) X 10*3/uL Eosinophils # (0.04-0.35) X 10*3/uL Sodium (135-145) mmol/L Carbon Dioxide (21.6-31.8) mmol/L POC Glucose (mg/dL) 150 H (70-110) mg/dL Calcium (8.7-10.3) mg/dL C-Reactive Protein (0.00-0.80) mg/dL Microbiology - Last 24 Hours (Table) 07/02/23 16:35 Gram Stain - Preliminary Other - Other Wound Culture - Preliminary Enterobacter cloacae 07/03/23 16:34 Blood Culture - Preliminary Blood Assessment and Plan (1) Pseudomonas aeruginosa infection Current Visit: Yes Status: Acute Code(s): A49.8 - OTHER BACTERIAL INFECTIONS OF UNSPECIFIED SITE SNOMED Code(s): 04146601 (2) Abscess in epidural space of lumbar spine Current Visit: No Status: Acute Code(s): G06.1 - INTRASPINAL ABSCESS AND GRANULOMA SNOMED Code(s): 360590005 Plan: 1patient with extensive thoracolumbar spine surgery for osteodiscitis and paraspinal abscess in this patient who did have a History of Streptococcus agalactiae bacteremia however the spine culture were negative and the patient has been treated with the cefazolin and now with the delayed healing of the wound requiring extensive debridement the outpatient culture obtained on 06/30/2023 undergoing an drug-resistant Enterobacter as well as Pseudomonas aeruginosa 2-patient to continue with Zosyn 3.375 g every 8 hours, plan is for at least 4 weeks of Zosyn on discharge this was discussed in detail with the at the bedside Dictation was produced using [employer] dictation software. please excuse any grammatical, word or spelling errors. Time with Patient: Less than 30
[2023-07-05 20:45] LABS: Glucose,Whole Blood 176 mg/dL (70-110)
[2023-07-05] MEDS: HYDROcodone/APAP 5-325MG 1 EACH TAB PO PRN (21:04)
[2023-07-06] MEDS ORDERED: LACTULOSE 20 GM/30 ML CUP PO PRN (04:14)
[2023-07-06 05:53] LABS: Glucose,Whole Blood 123 mg/dL (70-110)
--- NOTE | 2023-07-06 07:01 | P.PN ---
Subjective Progress Note Date: 07/05/23 67-year-old male patient with history of hypertension, hyperlipidemia, diabetes mellitus, osteoarthritis, presents to the hospital with concern about dehiscence and delayed healing of the surgical wound; patient was recently admitted to the hospital with streptococcal bacteremia and was found to have osteomyelitis and discitis and epidural abscess; patient underwent thoracolumbar spinal surgery and was sent home on IV cefepime; patient reports she was doing well when he was noted to have some dehiscence of the surgical wound and was recommended to present back to the hospital; patient was taken to the OR for irrigation and debridement of lumbar spinal wound with excision of soft tissue and bones and underwent complex 3 layer closure; he has been admitted for further evaluation and recommendations by ID for antibiotic therapy Blood work completed reveals a sodium level of 129, potassium of 5.1, BUNs/creatinine of 13/0.52, CRP of 3.5 07/05/2023 Patient is seen and evaluated in follow-up today currently sitting up in the chair being followed by orthopedics as well as infectious disease. Patient is status post debridement with abscess evacuation and deep cultures were obtained. Preliminary culture showing gram-negative bacilli and awaiting for finalized cultures to determine discharge antibiotics. Patient continues with a PICC line of the left upper extremity and has been on antibiotics for quite some time per family at the bedside. Patient is maintained on pain medication and reports passing gas although has not had a bowel movement. Patient is continued on bowel regimen and will adjust accordingly. Patient has been working with physical therapy. Patient plans on returning to [facility] for continued PT/OT therapy as well as IV antibiotics and wound care. Patient is afebrile with no reported chest pain or shortness of breath. Review of systems: Constitutional: No reports of fatigue, fever, or chills Cardiovascular: No reports of chest pain or palpitations Respiratory: No reports of shortness of breath or cough GI: No reports of nausea, vomiting, or diarrhea, reports passing gas but reports has not had a bowel movement in a couple of days : No reports of dysuria or retention Neurovascular: reports of generalized weakness and some back pain All medications have been reviewed Physical exam: Gen: This is a 67-year-old male who is awake, alert and oriented x 3, well- developed, thin built, elderly appearing HEENT: Head is atraumatic, normocephalic. Pupils equal, round. Sclerae is anicteric. NECK: Supple. No JVD. No lymphadenopathy. No thyromegaly. LUNGS: Clear to auscultation. No wheezes or rhonchi. No intercostal retractions. HEART: Regular rate and rhythm. No murmur. ABDOMEN: Somewhat taut. Mildly distended. Bowel sounds are present. No masses. No tenderness. EXTREMITIES: No pedal edema. No calf tenderness. NEUROLOGICAL: Patient is awake, alert and oriented x3. Cranial nerves 2 through 12 are grossly intact. Diffusely weak Assessment: -Extensive thoracolumbar osteodiscitis and paraspinal abscess, status post incision and drainage with irrigation and debridement -Hyponatremia, likely secondary to poor oral intake and diuretic use -Hypertension history -Hyperlipidemia -Hyperuricemia/gout history -GI prophylaxis -DVT prophylaxis; SCDs/subcu heparin -full code Plan: Patient is continued on IV antibiotics and does have a PICC line of the left upper extremity with plans on returning to [facility] on discharge for continued PT/OT therapy as well as IV antibiotics Preliminary cultures showing gram-negative bacilli and awaiting finalized culture to determine discharge antibiotics with infectious disease following Patient reports has not had a bowel movement in a few days and the abdomen appears slightly distended although reports passing gas and feels he might have a bowel movement today. Encouraged continued bowel regimen as patient is taking pain medications as well Encouraged oral intake Encouraged increase activity as tolerated We will continue to follow with orthopedics during hospitalization. Thank you kindly for this consultation. The impression and plan of care has been dictated by Cortney Pierce, Nurse Practitioner as directed. Dr. Ez MD I have performed a history and examination and MDM of this patient, discussed the same with the dictator, and agree with the dictator's assessment and plan as written ,documented as a scribe. Based on total visit time, I have performed more than 50% of the visit. Objective - Vital Signs Vital signs: Vital Signs Temp 98.0 F 07/05/23 13:39 Pulse 106 H 07/05/23 13:39 Resp 18 07/05/23 13:39 BP 94/59 07/05/23 13:39 Pulse Ox 98 07/05/23 13:39 FiO2 Intake & Output 07/04/23 07/05/23 07/05/23 18:59 06:59 18:59 Output Total 80 Balance -80 Output: Drainage 80 Back 80 Other: # Voids 2 - Labs CBC & Chem 7: 07/05/23 05:13 07/05/23 05:13 Labs: Abnormal Lab Results - Last 24 Hours (Table) 07/05/23 07/05/23 07/05/23 Range/Units 05:13 05:13 11:31 RBC 2.36 L (4.40-5.60) X 10*6/uL Hgb 7.4 L (13.0-17.0) g/dL Hct 23.5 L (39.6-50.0) % MCV 99.6 H (80.0-97.0) FL MCHC 31.5 L (32.0-37.0) g/dL RDW 17.3 H (11.5-14.5) % Immature Gran # 0.10 H (0.00-0.04) X 10*3/uL Eosinophils # 0 L (0.04-0.35) X 10*3/uL Sodium 133 L (135-145) mmol/L Carbon Dioxide 19.0 L (21.6-31.8) mmol/L POC Glucose (mg/dL) 150 H (70-110) mg/dL Calcium 8.0 L (8.7-10.3) mg/dL Microbiology - Last 24 Hours (Table) 07/02/23 16:35 Gram Stain - Preliminary Other - Other Wound Culture - Preliminary Enterobacter cloacae 07/03/23 16:34 Blood Culture - Preliminary Blood
[2023-07-06 07:50] VITALS: BP 106/64; PULSE 93; RESP 18; TEMP 97.8
[2023-07-06 09:07] LABS: BUN/Creat Ratio 20.29 Ratio (12.00-20.00); Blood Urea Nitrogen 14.2 mg/dL (9.0-27.0); Calcium 8.2 mg/dL (8.7-10.3); Carbon Dioxide 20.8 mmol/L (21.6-31.8); Chloride 104 mmol/L (96-109); Glucose 110 mg/dL (70-110); Potassium 5.2 mmol/L (3.5-5.5); Sodium 133 mmol/L (135-145)
--- NOTE | 2023-07-06 09:20 | P.PN ---
Subjective Progress Note Date: 07/06/23 Principal diagnosis: 1. s/p irrigation and debridement of thoracolumbar spine 2. s/p osteodiscitis treatment with fusion and epidural abscess evacuation 3. complex medical patient Patient seen and examined this morning. Patient is resting comfortable in bed. He reports his pain is managed on current regimen. Surgical incision to the thoracolumbar spine, edges are well approximated with sutures intact. Prevena wound vac and Hemovac have been removed due to possible discharge later today. Large blister has formed at the inferior region of the incision due to suction of wound vac. Adaptic dressing has been applied. Reminded patient of the importance of keeping pressure off of the wound. Repositioned with pillows. Hgb has trended down over the past two days, awaiting results from today. No concerns overnight. Possible discharge later today. Objective - Vital Signs Vital signs: Vital Signs Temp 97.8 F 07/06/23 06:45 Pulse 93 07/06/23 06:45 Resp 18 07/06/23 06:45 BP 106/64 07/06/23 06:45 Pulse Ox 99 07/06/23 06:45 FiO2 Intake & Output 07/05/23 07/06/23 07/06/23 18:59 06:59 18:59 Output Total 100 75 Balance -100 -75 Output: Drainage 100 75 Back 100 75 Other: # Voids 1 2 # Bowel Movements 1 - Exam Physical Examination General: The patient is awake and alert, in no acute distress Skin: Skin is warm and dry with no obvious rashes or lesions. Surgical incision to the thoracolumbar spine, incision is well approximated with sutures intact. Hemovac and Prevena have been discontinued. A large blister has formed at the inferior end of the incision due to the suction of the wound vac. New dressing applied. Eye: Pupils are equal, round and reactive to light, extra-ocular movements are intact; there is normal conjunctiva bilaterally. Neck: The neck is supple, there is no tenderness and ROM intact. Cardiovascular: There is a regular rate and rhythm. No murmur, rub or gallop is appreciated. Respiratory: Lungs are clear to auscultation, respirations are non-labored, breath sounds are equal. Gastrointestinal: Soft, non-distended, non-tender abdomen. Back: There is no tenderness to palpation in the midline, paralumbar, parathoracic or buttocks region. There is no obvious deformity . Musculoskeletal: ROM limited secondary to pain and stiffness from surgical procedure. Muscle strength in all major muscle groups of bilateral upper extremities 5/5, bilateral lower extremities 4/5. Neurological: CN 2-12 intact. There are no obvious motor or sensory deficits. Movement and coordination equal and intact. Sensory exam to light touch intact C5-T1 and intact from L2-S1. Reflexes 2/4 in bilateral upper and lower extremities. Negative Hoffmans, babinski, and clonus signs. Psychiatric: Cooperative, appropriate mood & affect, normal judgment. - Labs CBC & Chem 7: 07/05/23 05:13 07/05/23 05:13 Labs: Abnormal Lab Results - Last 24 Hours (Table) 07/05/23 07/05/23 07/05/23 Range/Units 05:13 05:13 11:31 RBC 2.36 L (4.40-5.60) X 10*6/uL Hgb 7.4 L (13.0-17.0) g/dL Hct 23.5 L (39.6-50.0) % MCV 99.6 H (80.0-97.0) FL MCHC 31.5 L (32.0-37.0) g/dL RDW 17.3 H (11.5-14.5) % Immature Gran # 0.10 H (0.00-0.04) X 10*3/uL Eosinophils # 0 L (0.04-0.35) X 10*3/uL Sodium 133 L (135-145) mmol/L Carbon Dioxide 19.0 L (21.6-31.8) mmol/L POC Glucose (mg/dL) 150 H (70-110) mg/dL Calcium 8.0 L (8.7-10.3) mg/dL 07/05/23 07/05/23 07/06/23 Range/Units 16:28 20:40 05:52 RBC (4.40-5.60) X 10*6/uL Hgb (13.0-17.0) g/dL Hct (39.6-50.0) % MCV (80.0-97.0) FL MCHC (32.0-37.0) g/dL RDW (11.5-14.5) % Immature Gran # (0.00-0.04) X 10*3/uL Eosinophils # (0.04-0.35) X 10*3/uL Sodium (135-145) mmol/L Carbon Dioxide (21.6-31.8) mmol/L POC Glucose (mg/dL) 164 H 176 H 123 H (70-110) mg/dL Calcium (8.7-10.3) mg/dL Microbiology - Last 24 Hours (Table) 07/03/23 16:34 Blood Culture - Preliminary Blood 07/02/23 16:35 Gram Stain - Preliminary Other - Other Wound Culture - Preliminary Enterobacter cloacae Assessment and Plan Assessment: Postop day 4: Irrigation and debridement of thoracolumbar wound 1. s/p irrigation and debridement of thoracolumbar spine 2. s/p osteodiscitis treatment with fusion and epidural abscess evacuation 3. complex medical patient Plan: -Appreciate proposal consultant and team management. -Awaiting Hgb result from today. -IV Zosyn to continue OP for 4 weeks per recommendations of Dr. Davenport. -Activity: Ambulate QID, OOB all meals, up and about, limit lifting bending twisting to less than 5 lbs. Use walker or cane if needed for stability. -Daily PT/OT, increase ambulation strength and balance. -Pain control: Adequate at this time -Meds: reviewed -GI ppx: senna, Miralax -DVT PPX: Heparin -Hygiene: Maintain dressing clean and dry. Meticulous cleaning after BMs away from the incision site -Encourage IS 10x/hr -Dispo: Clincally pending, will return to [facility] at discharge *I reviewed and discussed this case with my attending Dr. Narayanan, whom has reviewed this chart and films and is in agreement with assessment and plan of care as outlined above. I have personally seen and examined the patient, performed the documentation and the assessment and plan as written. Number of minutes spent on the visit: 20m.
[2023-07-06 09:46] LABS: Basophils # (A) 0.05 X 10*3/uL (0.00-0.10); Basophils % (A) 0.9 %; Eosinophils # (A) 0 X 10*3/uL (0.04-0.35); Eosinophils % (A) 0 %; HCT 24.4 % (39.6-50.0); HGB 7.9 g/dL (13.0-17.0); Lymphocytes # (A) 1.32 X 10*3/uL (0.90-5.00); MCH 31.7 pg (27.0-32.0); MCHC 32.4 g/dL (32.0-37.0); Mean Platelet Volume 10.3 FL (9.5-12.2); Monocytes % (A) 9.1 %; NRBC Per 100 WBC 0 X 10*3/uL (0.00-0.01); Neutrophils # (A) 3.53 X 10*3/uL (1.80-7.70); Neutrophils % (A) 64.2 %; Platelet Count 168 X 10*3/uL (140-440); RBC 2.49 X 10*6/uL (4.40-5.60); RDW 17.6 % (11.5-14.5)
[2023-07-06 12:01] LABS: Glucose,Whole Blood 148 mg/dL (70-110)
--- NOTE | 2023-07-06 14:11 | P.PN ---
Subjective Progress Note Date: 07/06/23 Principal diagnosis: Thoracolumbar surgical site infection Patient is a 67-year-old male with a past medical history of GERD for hypertension hyperlipidemia reflux and diabetes mellitus recent admission to the hospital with Streptococcus bacteremia and this patient who did have evidence of osteo discitis and epidural abscess requiring extensive thoracolumbar spine colon rgery patient was receiving outpatient cefazolin admitted to the hospital with delayed healing of his wound s/p irrigation and debridement of the thoracolumbar spine. On today's evaluation that is 07/06/2023, patient has been afebrile, patient is breathing comfortably and is currently on room air, patient denies having any significant cough no chest pain shortness of breath, patient denies nausea vomiting or diarrhea and no abdominal pain, pain to the lower back is currently well-controlled. Patient white count is 5.50, creatinine is 0.7 local culture did grow Enterobacter cloacae x 2 species, both pathogen sensitive to Zosyn Objective - Vital Signs Vital signs: Vital Signs Temp 97.8 F 07/06/23 06:45 Pulse 93 07/06/23 06:45 Resp 18 07/06/23 06:45 BP 106/64 07/06/23 06:45 Pulse Ox 99 07/06/23 06:45 FiO2 Intake & Output 07/05/23 07/06/23 07/06/23 18:59 06:59 18:59 Output Total 100 75 Balance -100 -75 Output: Drainage 100 75 Back 100 75 Other: # Voids 1 2 # Bowel Movements 1 - Exam GENERAL DESCRIPTION: An elderly male up in the chair in no distress RESPIRATORY SYSTEM: Unlabored breathing , decreased breath sounds at bases HEART: S1 S2 regular rate and rhythm , ABDOMEN: Soft , no tenderness EXTREMITIES: No edema feet, thoracolumbar incision covered with dressing - Labs CBC & Chem 7: 07/06/23 05:34 07/06/23 05:34 Labs: Abnormal Lab Results - Last 24 Hours (Table) 07/05/23 07/05/23 07/06/23 Range/Units 16:28 20:40 05:34 RBC 2.49 L (4.40-5.60) X 10*6/uL Hgb 7.9 L (13.0-17.0) g/dL Hct 24.4 L (39.6-50.0) % MCV 98.0 H (80.0-97.0) FL RDW 17.6 H (11.5-14.5) % Immature Gran # 0.10 H (0.00-0.04) X 10*3/uL Eosinophils # 0 L (0.04-0.35) X 10*3/uL Sodium (135-145) mmol/L Carbon Dioxide (21.6-31.8) mmol/L BUN/Creatinine Ratio (12.00-20.00) Ratio POC Glucose (mg/dL) 164 H 176 H (70-110) mg/dL Calcium (8.7-10.3) mg/dL 07/06/23 07/06/23 07/06/23 Range/Units 05:34 05:52 12:00 RBC (4.40-5.60) X 10*6/uL Hgb (13.0-17.0) g/dL Hct (39.6-50.0) % MCV (80.0-97.0) FL RDW (11.5-14.5) % Immature Gran # (0.00-0.04) X 10*3/uL Eosinophils # (0.04-0.35) X 10*3/uL Sodium 133 L (135-145) mmol/L Carbon Dioxide 20.8 L (21.6-31.8) mmol/L BUN/Creatinine Ratio 20.29 H (12.00-20.00) Ratio POC Glucose (mg/dL) 123 H 148 H (70-110) mg/dL Calcium 8.2 L (8.7-10.3) mg/dL Microbiology - Last 24 Hours (Table) 07/02/23 16:35 Anaerobic Culture - Preliminary Other - Other 07/02/23 16:35 Gram Stain - Preliminary Other - Other Wound Culture - Preliminary Enterobacter cloacae Enterobacter cloacae#2 07/03/23 16:34 Blood Culture - Preliminary Blood Assessment and Plan (1) Pseudomonas aeruginosa infection Current Visit: Yes Status: Acute Code(s): A49.8 - OTHER BACTERIAL INFECTIONS OF UNSPECIFIED SITE SNOMED Code(s): 27634601 (2) Abscess in epidural space of lumbar spine Current Visit: No Status: Acute Code(s): G06.1 - INTRASPINAL ABSCESS AND GRANULOMA SNOMED Code(s): 018198146 Plan: 1patient with extensive thoracolumbar spine surgery for osteodiscitis and paraspinal abscess in this patient who did have a History of Streptococcus agalactiae bacteremia however the spine culture were negative and the patient has been treated with the cefazolin and now with the delayed healing of the wound requiring extensive debridement the outpatient culture obtained on 06/30/2023 undergoing an drug-resistant Enterobacter as well as Pseudomonas aeruginosa 2-patient remains to be afebrile, white count is normal plan is to continue with Zosyn 3.375 g every 8 hours x 4-week on discharge with weekly monitoring of CRP and sed rate and close outpatient follow-up Dictation was produced using [employer] dictation software. please excuse any grammatical, word or spelling errors. Time with Patient: Less than 30
--- NOTE | 2023-07-06 15:21 | P.PN ---
Subjective Progress Note Date: 07/06/23 67-year-old male patient with history of hypertension, hyperlipidemia, diabetes mellitus, osteoarthritis, presents to the hospital with concern about dehiscence and delayed healing of the surgical wound; patient was recently admitted to the hospital with streptococcal bacteremia and was found to have osteomyelitis and discitis and epidural abscess; patient underwent thoracolumbar spinal surgery and was sent home on IV cefepime; patient reports she was doing well when he was noted to have some dehiscence of the surgical wound and was recommended to present back to the hospital; patient was taken to the OR for irrigation and debridement of lumbar spinal wound with excision of soft tissue and bones and underwent complex 3 layer closure; he has been admitted for further evaluation and recommendations by ID for antibiotic therapy Blood work completed reveals a sodium level of 129, potassium of 5.1, BUNs/creatinine of 13/0.52, CRP of 3.5 07/05/2023 Patient is seen and evaluated in follow-up today currently sitting up in the chair being followed by orthopedics as well as infectious disease. Patient is status post debridement with abscess evacuation and deep cultures were obtained. Preliminary culture showing gram-negative bacilli and awaiting for finalized cultures to determine discharge antibiotics. Patient continues with a PICC line of the left upper extremity and has been on antibiotics for quite some time per family at the bedside. Patient is maintained on pain medication and reports passing gas although has not had a bowel movement. Patient is continued on bowel regimen and will adjust accordingly. Patient has been working with physical therapy. Patient plans on returning to [facility] for continued PT/OT therapy as well as IV antibiotics and wound care. Patient is afebrile with no reported chest pain or shortness of breath. 07/06/2023 Patient is seen and evaluated in follow-up reports to having a bowel movement and cultures have finalized showing Enterobacter with infectious disease following and patient will continue 4-week course of antibiotics via PICC line in the form of Zosyn. Orthopedics working on discharge planning and patient will require outpatient follow-up. Patient encouraged to continue using incentive spirometer at least 10 times every hour while awake. Have instructed and reinstructed the patient on how to use the incentive spirometer properly. Patient will continue on current medication regimen and recommend outpatient follow-up with primary care provider as well. Patient is medically stable for discharge once cleared by infectious disease and orthopedics. Review of systems: Constitutional: No reports of fatigue, fever, or chills Cardiovascular: No reports of chest pain or palpitations Respiratory: No reports of shortness of breath or cough GI: No reports of nausea, vomiting, or diarrhea, reports passing gas and had a bowel movement : No reports of dysuria or retention Neurovascular: reports of generalized weakness and some back pain All medications have been reviewed Physical exam: Gen: This is a 67-year-old male who is awake, alert and oriented x 3, well- developed, thin built, elderly appearing HEENT: Head is atraumatic, normocephalic. Pupils equal, round. Sclerae is anicteric. NECK: Supple. No JVD. No lymphadenopathy. No thyromegaly. LUNGS: Clear to auscultation. No wheezes or rhonchi. No intercostal retra ctions. HEART: Regular rate and rhythm. No murmur. ABDOMEN: Soft, Mildly distended. Bowel sounds are present. No masses. No tenderness. EXTREMITIES: No pedal edema. No calf tenderness. NEUROLOGICAL: Patient is awake, alert and oriented x3. Cranial nerves 2 through 12 are grossly intact. Diffusely weak Assessment: -Extensive thoracolumbar osteodiscitis and paraspinal abscess, status post in cision and drainage with irrigation and debridement, cultures finalizing Enterobacter -Hyponatremia, likely secondary to poor oral intake and diuretic use -Hypertension history -Hyperlipidemia -Hyperuricemia/gout history -GI prophylaxis -DVT prophylaxis; SCDs/subcu heparin -full code Plan: Patient is continued on IV antibiotics and does have a PICC line of the left upper extremity with plans on returning to ECF on discharge for continued PT/OT therapy as well as IV antibiotics Cultures showing Enterobacter cloacae and infectious disease following and patient will continue on 4 weeks of IV antibiotic therapy. Patient reports had bowel movement and recommend to continue with current bowel regimen Encouraged oral intake Encouraged increase activity as tolerated Patient is medically stable for discharge to ECF once cleared by orthopedics and infectious disease We will continue to follow with orthopedics during hospitalization. Thank you kindly for this consultation. The impression and plan of care has been dictated by Cortney Pierce, Nurse Practitioner as directed. Dr. Ez MD I have performed a history and examination and MDM of this patient, discussed the same with the dictator, and agree with the dictator's assessment and plan as written ,documented as a scribe. Based on total visit time, I have performed more than 50% of the visit. Objective - Vital Signs Vital signs: Vital Signs Temp 97.8 F 07/06/23 06:45 Pulse 93 07/06/23 06:45 Resp 18 07/06/23 06:45 BP 106/64 07/06/23 06:45 Pulse Ox 99 07/06/23 06:45 FiO2 Intake & Output 07/05/23 07/06/23 07/06/23 18:59 06:59 18:59 Output Total 100 75 Balance -100 -75 Output: Drainage 100 75 Back 100 75 Other: # Voids 1 2 # Bowel Movements 1 - Labs CBC & Chem 7: 07/06/23 05:34 07/06/23 05:34 Labs: Abnormal Lab Results - Last 24 Hours (Table) 07/05/23 07/05/23 07/05/23 Range/Units 11:31 16:28 20:40 RBC (4.40-5.60) X 10*6/uL Hgb (13.0-17.0) g/dL Hct (39.6-50.0) % MCV (80.0-97.0) FL RDW (11.5-14.5) % Immature Gran # (0.00-0.04) X 10*3/uL Eosinophils # (0.04-0.35) X 10*3/uL Sodium (135-145) mmol/L Carbon Dioxide (21.6-31.8) mmol/L BUN/Creatinine Ratio (12.00-20.00) Ratio POC Glucose (mg/dL) 150 H 164 H 176 H (70-110) mg/dL Calcium (8.7-10.3) mg/dL 07/06/23 07/06/23 07/06/23 Range/Units 05:34 05:34 05:52 RBC 2.49 L (4.40-5.60) X 10*6/uL Hgb 7.9 L (13.0-17.0) g/dL Hct 24.4 L (39.6-50.0) % MCV 98.0 H (80.0-97.0) FL RDW 17.6 H (11.5-14.5) % Immature Gran # 0.10 H (0.00-0.04) X 10*3/uL Eosinophils # 0 L (0.04-0.35) X 10*3/uL Sodium 133 L (135-145) mmol/L Carbon Dioxide 20.8 L (21.6-31.8) mmol/L BUN/Creatinine Ratio 20.29 H (12.00-20.00) Ratio POC Glucose (mg/dL) 123 H (70-110) mg/dL Calcium 8.2 L (8.7-10.3) mg/dL Microbiology - Last 24 Hours (Table) 07/02/23 16:35 Gram Stain - Preliminary Other - Other Wound Culture - Preliminary Enterobacter cloacae Enterobacter cloacae#2 07/03/23 16:34 Blood Culture - Preliminary Blood
--- NOTE | 2023-07-06 16:23 | P.DS ---
Providers Date of admission: 07/05/23 12:24 Expected date of discharge: 07/06/23 Attending physician: Guillaume Narayanan DO Consults: 07/02/23 17:53 Consult Physician Routine Consulting Provider: Sharon Davenport Consult Reason/Comments: Delayed wound healing of lumbar spine, cultures pending Do you want consulting provider notified?: Yes Placement Type Exists?: Yes 07/02/23 17:58 Consult Physician Routine Consulting Provider: Alan Lange Consult Reason/Comments: Medical Management Do you want consulting provider notified?: Yes Primary care physician: Daryl [facility] Course: Hospital Course: The patient was evaluated preoperatively and found to have the diagnosis of delayed wound healing of the thoracolumbar incision They underwent appropriate preoperative care and were willing to undergo the intended procedure. They underwent a successful [procedure], were recovered appropriately and sent to the floor. While on the floor they worked with physical therapy, occupational therapy and nursing to enhance their recovery experience. Their pain was well controlled through their stay and they were started on appropriate medications, DVT ppx modalities, activity and dietary needs. Daily labs were monitored closely, and transfusions were only used when necessary. Medicine as well as other consulting services have made their input and have helped with our team approach and multidisciplinary care. PT milestones have been met and passed and they have made the recommendation of Subacute rehab for this patient and tr eating providers agree with this care path. The patient will be discharged home with appropriate medications, instructions and follow-up information and in stable condition. Patient Condition at Discharge: Good Plan - Discharge Summary Discharge Rx Participant: No New Discharge Prescriptions: New Piperacillin-Tazobactam [Zosyn] 3.375 gm IVPB Q8HR #84 each Artificial Tears-Hypromellose [Artificial Tear Drops] 2 drops BOTH EYES QID PRN ml PRN Reason: Dry Eye(S) Cyclobenzaprine [Flexeril] 5 mg PO TID PRN tab PRN Reason: Muscle Spasm Heparin Sodium,Porcine (1 ml) [Heparin Sodium] 5,000 unit SQ Q12HR each HYDROcodone/APAP 7.5-325MG [[place] 7.5-325] 1 tab PO Q6HR PRN #12 tab PRN Reason: Pain Continue allopurinoL [Zyloprim] 300 mg PO DAILY Colesevelam [Welchol] 3 tab PO AC-SUPPER Aspirin [Adult Low Dose Aspirin EC] 81 mg PO DAILY Ascorbic Acid [Vitamin C] 1,000 mg PO DAILY Acetaminophen Tab [Tylenol] 650 mg PO Q6HR PRN tab PRN Reason: Fever And/ Or Pain Furosemide [Lasix] 40 mg PO DAILY Magnesium Hydroxide [Milk of Magnesia] 2,400 mg PO DAILY Lactulose [Cephulac] 20 gm PO BID bisacodyL [Dulcolax] 10 mg RECTAL DAILY PRN PRN Reason: Constipation Ferrous Sulfate [Iron (65 MG Elemental)] 325 mg PO BID Ipratropium-Albuterol Nebulize [Duoneb 0.5 mg-3 mg/3 ml Soln] 3 ml INHALATION RT-QID PRN PRN Reason: Shortness Of Breath Hydrocortisone Cream [Hydrocortisone 1% Cream] 1 applic TOPICAL BID PRN PRN Reason: Itching Fluticasone Propionate [Fluticasone Propionate [place] 50 mcg Nasal [place]] 2 sprays EA NOSTRIL DAILY Omeprazole 20 mg PO BID Cholecalciferol [Vitamin D3 (25 Mcg = 1000 Iu)] 50 mcg PO DAILY guaiFENesin SYRUP 100MG/5ML [Robitussin] 10 ml PO Q6HR PRN PRN Reason: Cough Furosemide [Lasix] 80 mg PO DAILY Multivitamin/Iron/Folic Acid [Centrum Adults Tablet] 1 tab PO DAILY Na Phos,M-B/Na Phos,Di-Ba [Fleet Adult] 1 dose RECTAL DIRECTED PRN PRN Reason: Constipation Magnesium Hydroxide [Milk of Magnesia Concentrate] 1 dose PO DIRECTED PRN PRN Reason: Constipation Magnesium Oxide [Mag-Ox] 400 mg PO BID Sennosides-Docusate Sodium [Senokot-S] 2 tab PO DAILY Spironolactone [Aldactone] 50 mg PO BID Losartan [Cozaar] 25 mg PO BID Natural Tears 2 drop BOTH EYES TID PRN PRN Reason: Dry Eye(S) Discontinued ceFAZolin [Kefzol] 2,000 mg IVPB Q8HR Potassium Chloride 20 meq PO BID Discharge Medication List Colesevelam [Welchol] 3 tab PO AC-SUPPER 09/18/14 [History] allopurinoL [Zyloprim] 300 mg PO DAILY 09/18/14 [History] Omeprazole 20 mg PO BID 03/07/21 [History] Ascorbic Acid [Vitamin C] 1,000 mg PO DAILY 01/28/23 [History] Aspirin [Adult Low Dose Aspirin EC] 81 mg PO DAILY 01/28/23 [History] Cholecalciferol [Vitamin D3 (25 Mcg = 1000 Iu)] 50 mcg PO DAILY 04/22/23 [History] Acetaminophen Tab [Tylenol] 650 mg PO Q6HR PRN tab 05/07/23 [Rx] Ferrous Sulfate [Iron (65 MG Elemental)] 325 mg PO BID 06/03/23 [History] Furosemide [Lasix] 40 mg PO DAILY 06/03/23 [History] Furosemide [Lasix] 80 mg PO DAILY 06/03/23 [History] Lactulose [Cephulac] 20 gm PO BID 06/03/23 [History] Magnesium Hydroxide [Milk of Magnesia Concentrate] 1 dose PO DIRECTED PRN [History] Magnesium Hydroxide [Milk of Magnesia] 2,400 mg PO DAILY 06/03/23 [History] Multivitamin/Iron/Folic Acid [Centrum Adults Tablet] 1 tab PO DAILY 06/03/23 [History] Na Phos,M-B/Na Phos,Di-Ba [Fleet Adult] 1 dose RECTAL DIRECTED PRN 06/03/23 [History] bisacodyL [Dulcolax] 10 mg RECTAL DAILY PRN 06/03/23 [History] guaiFENesin SYRUP 100MG/5ML [Robitussin] 10 ml PO Q6HR PRN 06/03/23 [History] Ipratropium-Albuterol Nebulize [Duoneb 0.5 mg-3 mg/3 ml Soln] 3 ml INHALATION RT-QID PRN 06/10/23 [History] Losartan [Cozaar] 25 mg PO BID 06/10/23 [History] Magnesium Oxide [Mag-Ox] 400 mg PO BID 06/10/23 [History] Sennosides-Docusate Sodium [Senokot-S] 2 tab PO DAILY 06/10/23 [History] Spironolactone [Aldactone] 50 mg PO BID 06/10/23 [History] Fluticasone Propionate [Fluticasone Propionate [place] 50 mcg Nasal [place]] 2 sprays EA NOSTRIL DAILY 07/01/23 [History] Hydrocortisone Cream [Hydrocortisone 1% Cream] 1 applic TOPICAL BID PRN 07/01/23 [History] Natural Tears 2 drop BOTH EYES TID PRN 07/01/23 [History] Artificial Tears-Hypromellose [Artificial Tear Drops] 2 drops BOTH EYES QID PRN ml 07/06/23 [Rx] Cyclobenzaprine [Flexeril] 5 mg PO TID PRN tab 07/06/23 [Rx] HYDROcodone/APAP 7.5-325MG [[place] 7.5-325] 1 tab PO Q6HR PRN #12 tab 07/06/23 [Rx] Heparin Sodium,Porcine (1 ml) [Heparin Sodium] 5,000 unit SQ Q12HR each 07/06/23 [Rx] Piperacillin-Tazobactam [Zosyn] 3.375 gm IVPB Q8HR #84 each 07/06/23 [Rx] Follow up Appointment(s)/Referral(s): Farhana Monahan, [NON-STAFF] - As Needed Guillaume Narayanan DO [Doctor of Osteopathic Medicine] - 2 Weeks Sharon Davenport MD [STAFF PHYSICIAN] - 1 Week Ambulatory/Diagnostic Orders: Basic Metabolic Panel [LAB.AMB] Time Frame: 1 Week, Location: None Selected Activity/Diet/Wound Care/Special Instructions: Continue with IV antibiotics per infectious disease. Activity: Ambulate QID with walker as needed. Patient needs to keep pressure off incision at all times. Incision care: Maintain incision clean and dry. Adaptic dressing over blister on the inferior end of the incision. When showering allow soapy water to run over incision and pat dry. Wound Care daily. Take medication as directed. NO HEAT ON INCISION, may utilize ice packs near incision if needed. No longer than 20min per hour. Follow up in office with Dr. Solis in 2 weeks. Please call office with any questions or concerns. Discharge Disposition: TRANSFER TO SNF/ECF
== END 2023-07-06 16:31 | DRG 857 ==
LOC: OR 13:55 → 4SSUR 17:31 → OR 07-05 12:24
PROVIDERS: ADMIT Orthopaedic Surgery; ATTEND Orthopaedic Surgery
PROC: 0JB70ZZ Excision of Back Subcutaneous Tissue and Fascia, Open Approach (ICD-10-PCS; principal; 2023-07-05)
PROC: 2W15X6Z Compression of Back using Pressure Dressing (ICD-10-PCS; 2023-07-05)
DX: T81.41XA Infection following a procedure, superficial incisional surgical site, initial encounter (principal); E87.1 Hypo-osmolality and hyponatremia; T81.31XA Disruption of external operation (surgical) wound, not elsewhere classified, initial encounter; B96.89 Other specified bacterial agents as the cause of diseases classified elsewhere; Y84.8 Other medical procedures as the cause of abnormal reaction of the patient, or of later complication, without mention of misadventure at the time of the procedure; K70.30 Alcoholic cirrhosis of liver without ascites; I10 Essential (primary) hypertension; B96.5 Pseudomonas (aeruginosa) (mallei) (pseudomallei) as the cause of diseases classified elsewhere; E11.9 Type 2 diabetes mellitus without complications; T50.2X5A Adverse effect of carbonic-anhydrase inhibitors, benzothiadiazides and other diuretics, initial encounter; E78.5 Hyperlipidemia, unspecified; K21.9 Gastro-esophageal reflux disease without esophagitis; M10.9 Gout, unspecified; M17.0 Bilateral primary osteoarthritis of knee; Z87.19 Personal history of other diseases of the digestive system; Z87.891 Personal history of nicotine dependence; Z96.652 Presence of left artificial knee joint; Z98.42 Cataract extraction status, left eye; Z98.41 Cataract extraction status, right eye; Z90.49 Acquired absence of other specified parts of digestive tract; Z79.82 Long term (current) use of aspirin; Z79.899 Other long term (current) drug therapy; X58.XXXA Exposure to other specified factors, initial encounter; Z98.1 Arthrodesis status
CPT/HCPCS: 80048; 80053; 85025; 85652; 86140; 87040; 87070; 87075; 87077; 87186; 87205

== ENCOUNTER 2023-07-16 19:38 | Inpatient (IN) | payer MEDICARE, BC ==
--- NOTE | 2023-07-16 20:23 | ED ---
Fever HPI - General Chief Complaint: Fever Stated Complaint: tremors Time Seen by Provider: 07/16/23 20:01 Source: patient, EMS Mode of arrival: EMS - History of Present Illness Initial Comments: 67-year-old male with a past medical history significant for GERD, hypertension, hyperlipidemia, diabetes mellitus, cirrhosis with recent discharge from the hospital secondary to Streptococcus bacteremia status post irrigation and debridement of thoracic or lumbar spine, status post ostial discitis treatment with fusion and epidural abscess evacuation discharged home on 07/06/2023 pre senting to the ED with complaints of fever over the last 2 to 3 days. Reports no increases in back pain. Reports that he has been continuing IV antibiotics (Zosyn) at his facility. Does note some abdominal pain which he states is severe in nature and is chronic in nature. There was some bruising noted on examination and patient reports that this has been there for a while and has not recently increased in severity. Aside from fever and chills and note of minimal abdominal pain, patient denies any other complaints. No chest pains or shortness of breath. No nausea vomiting diarrhea. - Related Data Home Medications Medication Instructions Recorded Confirmed Colesevelam [Welchol] 3 tab PO AC-SUPPER 09/18/14 07/02/23 allopurinoL [Zyloprim] 300 mg PO DAILY 09/18/14 07/02/23 Omeprazole 20 mg PO BID 03/07/21 07/02/23 Ascorbic Acid [Vitamin C] 1,000 mg PO DAILY 01/28/23 07/02/23 Aspirin [Adult Low Dose Aspirin EC] 81 mg PO DAILY 01/28/23 07/02/23 Cholecalciferol [Vitamin D3 (25 50 mcg PO DAILY 04/22/23 07/02/23 Mcg = 1000 Iu)] Ferrous Sulfate [Iron (65 MG 325 mg PO BID 06/03/23 07/02/23 Elemental)] Furosemide [Lasix] 40 mg PO DAILY 06/03/23 07/02/23 Furosemide [Lasix] 80 mg PO DAILY 06/03/23 07/02/23 Lactulose [Cephulac] 20 gm PO BID 06/03/23 07/02/23 Magnesium Hydroxide [Milk of 1 dose PO DIRECTED PRN 06/03/23 07/02/23 Magnesia Concentrate] Magnesium Hydroxide [Milk of 2,400 mg PO DAILY 06/03/23 07/02/23 Magnesia] Multivitamin/Iron/Folic Acid 1 tab PO DAILY 06/03/23 07/02/23 [Centrum Adults Tablet] Na Phos,M-B/Na Phos,Di-Ba [Fleet 1 dose RECTAL DIRECTED PRN 06/03/23 07/02/23 Adult] bisacodyL [Dulcolax] 10 mg RECTAL DAILY PRN 06/03/23 07/02/23 guaiFENesin SYRUP 100MG/5ML 10 ml PO Q6HR PRN 06/03/23 07/02/23 [Robitussin] Ipratropium-Albuterol Nebulize 3 ml INHALATION RT-QID PRN 06/10/23 07/02/23 [Duoneb 0.5 mg-3 mg/3 ml Soln] Losartan [Cozaar] 25 mg PO BID 06/10/23 07/02/23 Magnesium Oxide [Mag-Ox] 400 mg PO BID 06/10/23 07/02/23 Sennosides-Docusate Sodium 2 tab PO DAILY 06/10/23 07/02/23 [Senokot-S] Spironolactone [Aldactone] 50 mg PO BID 06/10/23 07/02/23 Fluticasone Propionate 2 sprays EA NOSTRIL DAILY 07/01/23 07/02/23 [Fluticasone Propionate [place] 50 mcg Nasal Forreston] Hydrocortisone Cream 1 applic TOPICAL BID PRN 07/01/23 07/02/23 [Hydrocortisone 1% Cream] Natural Tears 2 drop BOTH EYES TID PRN 07/01/23 07/02/23 Previous Rx's Medication Instructions Recorded Acetaminophen Tab [Tylenol] 650 mg PO Q6HR PRN tab 05/07/23 Artificial Tears-Hypromellose 2 drops BOTH EYES QID PRN ml 07/06/23 [Artificial Tear Drops] Cyclobenzaprine [Flexeril] 5 mg PO TID PRN tab 07/06/23 HYDROcodone/APAP 7.5-325MG [[place] 1 tab PO Q6HR PRN #12 tab 07/06/23 7.5-325] Heparin Sodium,Porcine (1 ml) 5,000 unit SQ Q12HR each 07/06/23 [Heparin Sodium] Piperacillin-Tazobactam [Zosyn] 3.375 gm IVPB Q8HR #84 each 07/06/23 Allergies Allergy/AdvReac Type Severity Reaction Status Date / Time Sulfa (Sulfonamide Allergy Rash/Hives Verified 07/16/23 19:47 Antibiotics) Review of Systems ROS Statement: Those systems with pertinent positive or pertinent negative responses have been documented in the HPI. ROS Other: All systems not noted in ROS Statement are negative. Past Medical History Past Medical History: Diabetes Mellitus, GERD/Reflux, Hyperlipidemia, Hypertension, Osteoarthritis (OA) Additional Past Medical History / Comment(s): GOUT. LOWER BACK PAIN. HX OF COLON POLYP. ARTHRITIS KNEES. HX ESOPHAGEAL VARICES WITH BANDING., LIVER CIRRHOSIS., NON HEALING WOUND POST BACK SURGERY History of Any Multi-Drug Resistant Organisms: None Reported Past Surgical History: Back Surgery, Cholecystectomy, Joint Replacement, Orthopedic Surgery Additional Past Surgical History / Comment(s): Surgery for deviated septum, bilateral cataracts removed, right knee arthroscopy, wisdom teeth removed, EGD with ESOPHAGEAL BANDS at [facility], COLONOSCOPIES, left knee replacement., laminectomy, decompression & fusion. Past Anesthesia/Blood Transfusion Reactions: No Reported Reaction Additional Past Anesthesia/Blood Transfusion Reaction / Comment(s): Woke up once when IV infiltrated during EGD. multiple blood transfusions with no reaction Past Psychological History: No Psychological Hx Reported Smoking Status: Former smoker Past Alcohol Use History: Occasional Past Drug Use History: None Reported - Past Family History Mother Family Medical History: No Reported History General Exam General appearance: alert, in no apparent distress Eye exam: Present: normal appearance Neck exam: Present: normal inspection Respiratory exam: Present: normal lung sounds bilaterally Cardiovascular Exam: Present: tachycardia, systolic murmur GI/Abdominal exam: Present: soft (Patient noted of the lower abdomen. There is a fluid wave. Abdomen not significantly tender on palpation.) Back exam: Present: other (Sutures of the neck appear clean dry and intact with minimal surrounding erythema and warmth. These are not tender on palpation. There is no purulent drainage.) Neurological exam: Present: alert, oriented X3 Skin exam: Present: warm, dry Course Vital Signs 07/16/23 07/16/23 07/16/23 19:43 23:02 23:17 Temperature 103.3 F H 98.7 F Pulse Rate 140 H 107 H Respiratory 16 16 Rate Blood Pressure 108/59 73/40 O2 Sat by Pulse 94 L 95 Oximetry 07/16/23 07/17/23 07/17/23 23:58 00:34 01:00 Temperature Pulse Rate 102 H 104 H 99 Respiratory 16 15 18 Rate Blood Pressure 77/54 83/59 88/55 O2 Sat by Pulse 97 95 95 Oximetry 07/17/23 07/17/23 07/17/23 01:28 01:38 02:20 Temperature Pulse Rate 97 89 89 Respiratory 17 12 16 Rate Blood Pressure 88/58 85/57 102/67 O2 Sat by Pulse 96 97 97 Oximetry 07/17/23 07/17/23 02:40 03:04 Temperature Pulse Rate 84 88 Respiratory 15 12 Rate Blood Pressure 95/67 106/65 O2 Sat by Pulse 95 96 Oximetry Medical Decision Making - Medical Decision Making Was pt. sent in by a medical professional or institution (, PA, [facility], urgent care, hospital, or [place] [facility] facility...) When possible be specific @ -No Did you speak to anyone other than the patient for history (EMS, parent, family, police, friend...)? What history was obtained from this source @ -No Did you review nursing and triage notes (agree or disagree)? Why? @ -I reviewed and agree with nursing and triage notes Were old charts reviewed (outside hosp., previous admission, EMS record, old EKG, old radiological studies, urgent care reports/EKG's, [place] [facility] facility records)? Report findings @ -Prior charts reviewed. For further details please see HPI and MDM. Differential Diagnosis (chest pain, altered mental status, abdominal pain women, abdominal pain men, vaginal bleeding, weakness, fever, dyspnea, syncope, headache, dizziness, GI bleed, back pain, seizure, CVA, palpatations, mental health, musculoskeletal)? @ -Differential Fever: Pneumonia, viral URI, endocarditis, myocarditis, pericarditis, otitis, sinusitis, peritonsillar Abscess, retropharyngeal Abscess, epiglottitis, peritonitis, appendicitis, Fidelina cystitis, diverticulitis, hepatitis, colitis, UTI, PID, TOA, pyelonephritis, prostatitis, epididymitis, meningitis, encephalitis, pulmonary embolism, CVA, thyroid storm, pancreatitis, adrenal crisis, cavernous sinus thrombosis, this is not meant to be an all-inclusive list. EKG interpreted by me (3pts min.). @ -EKG interpreted by me showing this tachycardia at [address] or T wave changes. QRS 85, QT/QTc 314/394. X-rays interpreted by me (1pt min.). @ -Chest x-ray inter by me which revealed no evidence of acute finding. CT interpreted by me (1pt min.). @ -None done U/S interpreted by me (1pt. min.). @ -None done What testing was considered but not performed or refused? (CT, X-rays, U/S, labs)? Why? @ -None What meds were considered but not given or refused? Why? @ -None Did you discuss the management of the patient with other professionals (professionals i.e. , HARIKA, [facility], lab, RT, psych nurse, social media manager, patient resource specialist, teacher, interface control officer, assistant case manager)? Give summary @ -Spoke to Demar GAMBLE, of [facility]. At this time, advises holding off on CT imaging of the back. Was smoking cessation discussed for >3mins.? @ -No Was critical care preformed (if so, how long)? @ -Yes, 35 minutes sepsis Were there social determinants of health that impacted care today? How? ([place] elessness, low income, unemployed, alcoholism, drug addiction, transportation, low edu. Level, literacy, decrease access to med. care, longterm, rehab)? @ -No Was there de-escalation of care discussed even if they declined (Discuss DNR or withdrawal of care, Hospice)? DNR status @ -No What co-morbidities impacted this encounter? (DM, HTN, Smoking, COPD, CAD, Cancer, CVA, ARF, Chemo, Hep., AIDS, mental health diagnosis, sleep apnea, morbid obesity)? @ -None Was patient admitted / discharged? Hospital course, mention meds given and route, prescriptions, significant lab abnormalities, going to OR and other pertinent info. @ -Admission Patient evaluated at approximately 20:05. Vital signs do show evidence of sepsis with patient being afebrile, tachycardic, hypotensive, and suspected source of fever. Patient provided 2500 mL saline bolus. Patient received 1000 mg of acetaminophen 2 hours prior to arrival. On evaluation, recheck of temp shows patient febrile with a temperature of 102. Provided ibuprofen. 67-year-old male with a past medical history significant for GERD, hypertension, hyperlipidemia, diabetes mellitus, cirrhosis with recent discharge from the hospital secondary to Streptococcus bacteremia status post irrigation and debridement of thoracic or lumbar spine, status post ostial discitis treatment with fusion and epidural abscess evacuation discharged home on 07/06/2023 presenting to the ED with complaints of fever over the last 2 to 3 days. laboratory studies reviewed. CBC shows no elevation in white blood cell count. Chemistry panel is largely unremarkable however lactic acid initially elevated at 5.7 however after fluid resuscitation repeat at 1.5. Serology panel unremarkable. Chest x-ray revealed no evidence of pneumonia. Urinalysis is pending. At this time, 3:39 AM, definite source of fever not identified. Pressors were considered given patient's hypotension in the high 70s to 80s systolic however after fluid resuscitation patient's blood pressure at 100 systolic with a mean pressure at 77. Repeat blood cultures were obtained. Patient was started on Levaquin. He will be admitted with consultations to infectious disease and orthopedics. Undiagnosed new problem with uncertain prognosis? @ -No Drug Therapy requiring intensive monitoring for toxicity (Heparin, Nitro, Insulin, Cardizem)? @ -No Were any procedures done? @ -No Diagnosis/symptom? @ -Fever, sepsis Acute, or Chronic, or Acute on Chronic? @ -Acute Uncomplicated (without systemic symptoms) or Complicated (systemic symptoms)? @ -Complicated Side effects of treatment? @ -No Exacerbation, Progression, or Severe Exacerbation? @ -No Poses a threat to life or bodily function? How? (Chest pain, USA, MS, pneumonia, PE, COPD, DKA, ARF, appy, cholecystitis, CVA, Diverticulitis, Homicidal, Suicidal, threat to staff... and all critical care pts) @ -Yes sepsis - Lab Data Result diagrams: 07/16/23 20:20 07/16/23 20:20 Lab Results 07/16/23 07/16/23 07/16/23 Range/Units 20:20 20:20 20:20 WBC 3.8 (3.8-10.6) k/uL RBC 2.54 L (4.30-5.90) m/uL Hgb 8.4 L (13.0-17.5) gm/dL Hct 26.5 L (39.0-53.0) % MCV 104.2 H (80.0-100.0) fL MCH 33.1 (25.0-35.0) pg MCHC 31.8 (31.0-37.0) g/dL RDW 17.9 H (11.5-15.5) % Plt Count 117 L (150-450) k/uL MPV 9.9 Neutrophils % 85 % Lymphocytes % 10 % Monocytes % 3 % Eosinophils % 0 % Basophils % 0 % Neutrophils # 3.2 (1.3-7.7) k/uL Lymphocytes # 0.4 L (1.0-4.8) k/uL Monocytes # 0.1 (0-1.0) k/uL Eosinophils # 0.0 (0-0.7) k/uL Basophils # 0.0 (0-0.2) k/uL Hypochromasia Slight Anisocytosis Slight Macrocytosis Moderate Sodium 133 L (137-145) mmol/L Potassium 4.6 (3.5-5.1) mmol/L Chloride 110 H (98-107) mmol/L Carbon Dioxide 12 L (22-30) mmol/L Anion Gap 11 mmol/L BUN 23 H (9-20) mg/dL Creatinine 0.78 (0.66-1.25) mg/dL Est GFR (CKD-EPI)AfAm >90 (>60 ml/min/1.73 sqM) Est GFR (CKD-EPI)NonAf >90 (>60 ml/min/1.73 sqM) Glucose 77 (74-99) mg/dL Lactic Ac Sepsis Rflx Plasma Lactic Acid Maximilian 5.7 H* (0.7-2.0) mmol/L Calcium 7.8 L (8.4-10.2) mg/dL Total Bilirubin 0.8 (0.2-1.3) mg/dL AST 109 H (17-59) U/L ALT 30 (4-49) U/L Alkaline Phosphatase 168 H (38-126) U/L Ammonia 18 (<30) umol/L Total Protein 5.9 L (6.3-8.2) g/dL Albumin 2.6 L (3.5-5.0) g/dL Influenza Type A (PCR) (Not Detectd) Influenza Type B (PCR) (Not Detectd) RSV (PCR) (Not Detectd) SARS-CoV-2 (PCR) (Not Detectd) 07/16/23 07/16/23 07/16/23 Range/Units 21:14 23:13 23:39 WBC (3.8-10.6) k/uL RBC (4.30-5.90) m/uL Hgb (13.0-17.5) gm/dL Hct (39.0-53.0) % MCV (80.0-100.0) fL MCH (25.0-35.0) pg MCHC (31.0-37.0) g/dL RDW (11.5-15.5) % Plt Count (150-450) k/uL MPV Neutrophils % % Lymphocytes % % Monocytes % % Eosinophils % % Basophils % % Neutrophils # (1.3-7.7) k/uL Lymphocytes # (1.0-4.8) k/uL Monocytes # (0-1.0) k/uL Eosinophils # (0-0.7) k/uL Basophils # (0-0.2) k/uL Hypochromasia Anisocytosis Macrocytosis Sodium (137-145) mmol/L Potassium (3.5-5.1) mmol/L Chloride (98-107) mmol/L Carbon Dioxide (22-30) mmol/L Anion Gap mmol/L BUN (9-20) mg/dL Creatinine (0.66-1.25) mg/dL Est GFR (CKD-EPI)AfAm (>60 ml/min/1.73 sqM) Est GFR (CKD-EPI)NonAf (>60 ml/min/1.73 sqM) Glucose (74-99) mg/dL Lactic Ac Sepsis Rflx Y Plasma Lactic Acid Maximilian 1.5 (0.7-2.0) mmol/L Calcium (8.4-10.2) mg/dL Total Bilirubin (0.2-1.3) mg/dL AST (17-59) U/L ALT (4-49) U/L Alkaline Phosphatase (38-126) U/L Ammonia (<30) umol/L Total Protein (6.3-8.2) g/dL Albumin (3.5-5.0) g/dL Influenza Type A (PCR) Not Detected (Not Detectd) Influenza Type B (PCR) Not Detected (Not Detectd) RSV (PCR) Not Detected (Not Detectd) SARS-CoV-2 (PCR) Not Detected (Not Detectd) Disposition Clinical Impression: Fever, Sepsis Disposition: ADMITTED IP TO THIS HOSP Condition: Fair Referrals: Farhana Monahan, [Primary Care Provider] - 1-2 days Time of Disposition: 03:42
[2023-07-16] MEDS: KETOROLAC 15 MG/ML 1 ML VIAL IVP STA (20:31)
[2023-07-16] MEDS: IBUPROFEN 600 MG TAB PO STA (20:31)
[2023-07-16] MEDS: SODIUM CHLORIDE 0.9% 500 ML 500 ML IV STA (20:31)
[2023-07-16] MEDS: SODIUM CHLORIDE 0.9% 2,000 ML IV STA (20:31)
[2023-07-16 20:39] LABS: Anisocytosis Slight; Basophils % (A) 0 %; Eosinophils % (A) 0 %; HCT 26.5 % (39.0-53.0); HGB 8.4 gm/dL (13.0-17.5); Hypochromasia Slight; Lymphocytes # (A) 0.4 k/uL (1.0-4.8); Lymphocytes % (A) 10 %; MCH 33.1 pg (25.0-35.0); MCHC 31.8 g/dL (31.0-37.0); MCV 104.2 fL (80.0-100.0); Macrocytosis Moderate; Mean Platelet Volume 9.9; Monocytes # (A) 0.1 k/uL (0-1.0); Monocytes % (A) 3 %; Neutrophils # (A) 3.2 k/uL (1.3-7.7); Neutrophils % (A) 85 %; Platelet Count 117 k/uL (150-450); RBC 2.54 m/uL (4.30-5.90); RDW 17.9 % (11.5-15.5); WBC 3.8 k/uL (3.8-10.6)
[2023-07-16 20:51] LABS: ALT 30 U/L (4-49); AST 109 U/L (17-59); African American GFR (CKD) >90 (>60 ml/min/1.73 sqM); Albumin 2.6 g/dL (3.5-5.0); Alkaline Phosphatase 168 U/L (38-126); Anion Gap 11 mmol/L; Blood Urea Nitrogen 23 mg/dL (9-20); Calcium 7.8 mg/dL (8.4-10.2); Carbon Dioxide 12 mmol/L (22-30); Chloride 110 mmol/L (98-107); Glucose 77 mg/dL (74-99); Non-African American GFR(CKD) >90 (>60 ml/min/1.73 sqM); Potassium 4.6 mmol/L (3.5-5.1); Sodium 133 mmol/L (137-145); Total Bilirubin 0.8 mg/dL (0.2-1.3); Total Protein 5.9 g/dL (6.3-8.2)
[2023-07-16 21:14] LABS: Lactic Acid, Venous 5.7 mmol/L (0.7-2.0)
[2023-07-16] MEDS: LEVOFLOXACIN 750MG-D5W PMX 750 MG in DEXTROSE/WATER 1 150ML.BAG IVPB STA (23:47)
[2023-07-16] MEDS: SODIUM CHLORIDE 0.9% 1,000 ML IV STA ×2 (23:47)
--- NOTE | 2023-07-17 00:34 | XR ---
EXAMINATION TYPE: XR chest 2V DATE OF EXAM: 07/16/2023 8:46 PM CLINICAL INDICATION:Male, 67 years old with history of r/o pna; [facility] COMPARISON: None TECHNIQUE: XR chest 2V. Frontal and lateral views of the chest.. FINDINGS: EKG leads overlie the chest. Left arm PICC with its tip over the SVC/RA junction. Mild asymmetric elevation of the right hemidiaphragm. Heart appears mildly enlarged. Partially calcif ied aorta. Otherwise unremarkable mediastinum. Scattered scarring and senescent changes. No focal airspace disease, pleural effusion, or pneumothora x. There are mild degenerative changes of the shoulders and spine. Lateral view shows multilevel fusion hardware in the upper lumbar region. IMPRESSION: Cardiomegaly and chronic pulmonary changes noted. No acute finding.
[2023-07-17] MEDS ORDERED: NALOXONE 0.4 MG/ML 1 ML VIAL IV PRN (04:03)
[2023-07-17] MEDS ORDERED: ACETAMINOPHEN TAB 325 MG TAB PO PRN (04:08)
[2023-07-17] MEDS: SODIUM CHLORIDE 0.9% 1,000 ML IV SCH (04:18)
[2023-07-17 06:25] LABS: Glucose,Whole Blood 89 mg/dL (70-110)
[2023-07-17 11:50] LABS: Glucose,Whole Blood 135 mg/dL (70-110)
[2023-07-17] MEDS ORDERED: CYCLOBENZAPRINE 5 MG TAB PO PRN (12:07)
[2023-07-17] MEDS ORDERED: HYDROcodone/APAP 7.5-325MG 1 EACH TAB PO PRN (12:07)
[2023-07-17] MEDS ORDERED: MAGNESIUM HYDROXIDE 2,400 MG/30 ML CUP PO PRN (12:07)
[2023-07-17] MEDS ORDERED: NA PHOS,M-B/NA PHOS,DI-BA 133 ML ENEMA RECTAL PRN (12:07)
[2023-07-17] MEDS: FUROSEMIDE 40 MG TAB PO SCH ×2 (13:57→14:00)
[2023-07-17] MEDS: CHOLECALCIFEROL 25 MCG (1000 IU) TABLET PO SCH (13:57)
[2023-07-17] MEDS: ASCORBIC ACID 500 MG TAB PO SCH (13:57)
[2023-07-17] MEDS: PANTOPRAZOLE 40 MG TABLET PO SCH (13:58)
--- NOTE | 2023-07-17 14:05 | P.CNOR ---
History of Present Illness - [facility] Consult date: 07/17/23 Consult reason: other (History of epidural abscess, status post T10-L4 posterior lateral decompression and fusion, L1-L2 interbody fusion, history of multiple washouts due to wound dehiscence and continuing infection) History of present illness: Patient is a 67-year-old male who is well-known to our orthopedic service. Patient had initially undergone a T10-L4 posterior lateral decompression and fusion with L1-L2 interbody fusion due to a epidural abscess on 04/29/2023. At that initial time patient was septic, he has known end-stage liver disease. Since initial surgery, patient has been on IV antibiotics. He has undergone 2 separate I&D procedures one on 06/04/2023 and one on 07/03/2023 for wound dehisce nce and ulceration along with seroma formation and continuing infection. Patient has been at [facility] subacute rehab since being discharged after his first surgery. Patient is being followed by infectious disease in the outpatient setting. Patient was brought to the hospital yesterday with regards to fevers for 2-3 days. Patient had admitted to no worsening back pain. He has dealt with some abdominal pain that seems chronic, he has known ascites. Patient also admits to loose stools for the last 3 to 4 days. Patient was examined today at bedside, he was resting comfortably. Patient notes no increase in back pain. Patient denies any acute weakness or loss of function of the bilateral lower extremities. He denies any numbness or tingling to the perineal or genital region. He denies any loss of bowel or bladder function at this time. Patient has continued to ambulate with the assistance of a walker. Review of Systems Constitutional: Reports as per HPI Past Medical History Past Medical History: Diabetes Mellitus, GERD/Reflux, Hyperlipidemia, Hypertension, Osteoarthritis (OA) Additional Past Medical History / Comment(s): GOUT. LOWER BACK PAIN. HX OF COLON POLYP. ARTHRITIS KNEES. HX ESOPHAGEAL VARICES WITH BANDING., LIVER CIRRHOSIS., NON HEALING WOUND POST BACK SURGERY History of Any Multi-Drug Resistant Organisms: None Reported Past Surgical History: Back Surgery, Cholecystectomy, Joint Replacement, Orthopedic Surgery Additional Past Surgical History / Comment(s): Surgery for deviated septum, bilateral cataracts removed, right knee arthroscopy, wisdom teeth removed, EGD with ESOPHAGEAL BANDS at [place], COLONOSCOPIES, left knee replacement., laminectomy, decompression & fusion. surgery for abcess on back, 2 follow up surgeries Past Anesthesia/Blood Transfusion Reactions: No Reported Reaction Additional Past Anesthesia/Blood Transfusion Reaction / Comm: Woke up once when IV infiltrated during EGD. multiple blood transfusions with no reaction Past Psychological History: No Psychological Hx Reported Smoking Status: Former smoker Past Alcohol Use History: Occasional Additional Past Alcohol Use History / Comment(s): STARTED SMOKING AT AGE 18, QUIT AT AGE 22, SMOKED 1/2 PPD. Past Drug Use History: None Reported - Past Family History Mother Family Medical History: No Reported History Medications and Allergies Home Medications Medication Instructions Recorded Confirmed Type Colesevelam [Welchol] 1,875 mg PO AC-SUPPER 09/18/14 07/17/23 History allopurinoL [Zyloprim] 300 mg PO DAILY 09/18/14 07/17/23 History Omeprazole 20 mg PO BID 03/07/21 07/17/23 History Ascorbic Acid [Vitamin C] 1,000 mg PO DAILY 01/28/23 07/17/23 History Aspirin [Adult Low Dose Aspirin EC] 81 mg PO DAILY 01/28/23 07/17/23 History Cholecalciferol [Vitamin D3 (25 50 mcg PO DAILY 04/22/23 07/17/23 History Mcg = 1000 Iu)] Acetaminophen Tab [Tylenol] 650 mg PO Q6HR PRN tab 05/07/23 07/17/23 Rx Ferrous Sulfate [Iron (65 MG 325 mg PO BID 06/03/23 07/17/23 History Elemental)] Furosemide [Lasix] 40 mg PO DAILY 06/03/23 07/17/23 History Furosemide [Lasix] 80 mg PO DAILY 06/03/23 07/17/23 History Lactulose [Cephulac] 20 gm PO BID 06/03/23 07/17/23 History Magnesium Hydroxide [Milk of 7,200 mg PO Q48H PRN 06/03/23 07/17/23 History Magnesia Concentrate] Multivitamin/Iron/Folic Acid 1 tab PO DAILY 06/03/23 07/17/23 History [Centrum Adults Tablet] Na Phos,M-B/Na Phos,Di-Ba [Fleet 133 ml RECTAL DAILY PRN 06/03/23 07/17/23 History Adult] bisacodyL [Dulcolax] 10 mg RECTAL DAILY PRN 06/03/23 07/17/23 History guaiFENesin SYRUP 100MG/5ML 10 ml PO Q6HR PRN 06/03/23 07/17/23 History [Robitussin] Ipratropium-Albuterol Nebulize 3 ml INHALATION RT-QID PRN 06/10/23 07/17/23 History [Duoneb 0.5 mg-3 mg/3 ml Soln] Losartan [Cozaar] 25 mg PO BID 06/10/23 07/17/23 History Magnesium Oxide [Mag-Ox] 400 mg PO BID 06/10/23 07/17/23 History Sennosides-Docusate Sodium 2 tab PO DAILY 06/10/23 07/17/23 History [Senokot-S] Spironolactone [Aldactone] 50 mg PO BID 06/10/23 07/17/23 History Fluticasone Propionate 2 sprays EA NOSTRIL DAILY 07/01/23 07/17/23 History [Fluticasone Propionate [place] 50 mcg Nasal [place]] Hydrocortisone Cream 1 applic TOPICAL BID PRN 07/01/23 07/17/23 History [Hydrocortisone 1% Cream] Natural Tears 2 drop BOTH EYES TID PRN 07/01/23 07/17/23 History Artificial Tears-Hypromellose 2 drops BOTH EYES QID PRN ml 07/06/23 07/17/23 Rx [Artificial Tear Drops] Cyclobenzaprine [Flexeril] 5 mg PO TID PRN tab 07/06/23 07/17/23 Rx HYDROcodone/APAP 7.5-325MG [[place] 1 tab PO Q6HR PRN #12 tab 07/06/23 07/17/23 Rx 7.5-325] Heparin Sodium,Porcine (1 ml) 5,000 unit SQ Q12HR each 07/06/23 07/17/23 Rx [Heparin Sodium] Piperacillin-Tazobactam [Zosyn] 3.375 gm IVPB Q8HR #84 each 07/06/23 07/17/23 Rx Allergies Allergy/AdvReac Type Severity Reaction Status Date / Time Sulfa (Sulfonamide Allergy Rash/Hives Verified 07/17/23 09:35 Antibiotics) Physical Examination Gen: AOx3, NAD VSS stable at this time Integument: Thoracic/lumbar incision is well-healing. There are multiple nylon sutures in place. There is no increase in erythema surrounding the borders. There is no active drainage visualized, there is no areas of fluctuance appreciated Palpation: No significant tenderness is appreciated throughout the thoracic and lumbar spine ROM: Full range of motion in all major muscle groups of the bilateral upper and lower extremities, no focal deficits Sensory Exam: Senory exam to light touch is intact C5-T1 [place] exam to light touch is intact L2-S1 Motor: 4/5 strength appreciated the bilateral lower extremities with hip flexion, knee extension, knee flexion, plantarflexion, dorsiflexion, EHL, FHL Reflexes: 2/4 in all UE and LE Negative Diana's bilaterally, negative Babinski bilaterally Results - Labs Labs: Abnormal Lab Results - Last 24 Hours (Table) 07/16/23 07/16/23 07/16/23 Range/Units 20:20 20:20 20:20 RBC 2.54 L (4.30-5.90) m/uL Hgb 8.4 L (13.0-17.5) gm/dL Hct 26.5 L (39.0-53.0) % MCV 104.2 H (80.0-100.0) fL RDW 17.9 H (11.5-15.5) % Plt Count 117 L (150-450) k/uL Lymphocytes # 0.4 L (1.0-4.8) k/uL Sodium 133 L (137-145) mmol/L Chloride 110 H (98-107) mmol/L Carbon Dioxide 12 L (22-30) mmol/L BUN 23 H (9-20) mg/dL POC Glucose (mg/dL) (70-110) mg/dL Plasma Lactic Acid Maximilian 5.7 H* (0.7-2.0) mmol/L Calcium 7.8 L (8.4-10.2) mg/dL AST 109 H (17-59) U/L Alkaline Phosphatase 168 H (38-126) U/L Total Protein 5.9 L (6.3-8.2) g/dL Albumin 2.6 L (3.5-5.0) g/dL 07/17/23 Range/Units 11:48 RBC (4.30-5.90) m/uL Hgb (13.0-17.5) gm/dL Hct (39.0-53.0) % MCV (80.0-100.0) fL RDW (11.5-15.5) % Plt Count (150-450) k/uL Lymphocytes # (1.0-4.8) k/uL Sodium (137-145) mmol/L Chloride (98-107) mmol/L Carbon Dioxide (22-30) mmol/L BUN (9-20) mg/dL POC Glucose (mg/dL) 135 H (70-110) mg/dL Plasma Lactic Acid Maximilian (0.7-2.0) mmol/L Calcium (8.4-10.2) mg/dL AST (17-59) U/L Alkaline Phosphatase (38-126) U/L Total Protein (6.3-8.2) g/dL Albumin (3.5-5.0) g/dL H & H 07/16/23 Range/Units 20:20 Hgb 8.4 L (13.0-17.5) gm/dL Hct 26.5 L (39.0-53.0) % Result Diagrams: 07/16/23 20:20 07/16/23 20:20 Assessment and Plan Assessment: History of T10-L4 posterior lateral decompression and fusion, L1-L2 interbody fusion for epidural abscess History of incision with irrigation and debridement due to wound dehiscence, seroma, continuing infection x 2 Fevers End-stage liver disease Ascites Multiple medical comorbidities Plan: I was able to discuss the case, this to include both physical exam findings and imaging studies my attending Dr. Narayanan Currently patient seems very stable with regards to his thoracic/lumbar spine. The wound is healing well at this time, there is no evident signs of infection. Patient remains on IV antibiotics at this time. Patient's white blood cell count was noted to be normal, awaiting other labs. No further imaging studies recommended at this time A new Optifoam dressing was placed today by myself at bedside, continue to monitor. I had a long discussion with the patient today regarding trying to offset the pressure on his back by laying on his sides Weight-bear as tolerated, recommend use of a walker DVT prophylaxis per primary medical service Continue IV antibiotics Other medical specialty recommendations appreciated Will continue to follow during hospital stay Time with Patient: Less than 30
[2023-07-17] MEDS: PIPERACILLIN-TAZOBACTAM 3.375 GM VIAL IVPB SCH (16:30)
[2023-07-17] MEDS: COLESEVELAM 625 MG TAB PO SCH (16:30)
[2023-07-17 16:45] LABS: Glucose,Whole Blood 118 mg/dL (70-110)
--- NOTE | 2023-07-17 17:27 | P.HPIM ---
History of Present Illness H&P Date: 07/17/23 Chief Complaint: Fever 67-year-old male with a past medical history significant for GERD, hypertension, hyperlipidemia, diabetes mellitus, cirrhosis with recent discharge from the hospital secondary to Streptococcus bacteremia status post irrigation and debridement of thoracic or lumbar spine, status post ostial discitis treatment with fusion and epidural abscess evacuation discharged home on 07/06/2023 presenting to the ED with complaints of fever over the last 2 to 3 days. Reports no increases in back pain. Reports that he has been continuing IV antibiotics (Zosyn) at his facility. Does note some abdominal pain which he states is severe in nature and is chronic in nature. There was some bruising noted on examination and patient reports that this has been there for a while and has not recently increased in severity. Aside from fever and chills and note of minimal abdominal pain, patient denies any other complaints. No chest pains or shortness of breath. No nausea vomiting diarrhea. CBC shows no elevation in white blood cell count. Chemistry panel is largely unremarkable however lactic acid initially elevated at 5.7 however after fluid resuscitation repeat at 1.5. Serology panel unremarkable. Chest x-ray revealed no evidence of pneumonia. Urinalysis is pending. At this time, 3:39 AM, definite source of fever not identified. Pressors were considered given patient's hypotension in the high 70s to 80s systolic however after fluid resuscitation patient's blood pressure at 100 systolic with a mean pressure at 77. Repeat blood cultures were obtained. Patient was started on Levaquin. He will be admitted with consultations to infectious disease and orthopedics. Review of Systems REVIEW OF SYSTEMS: CONSTITUTIONAL: No fever, no malaise, no fatigue. HEENT: No recent visual problems or hearing problems. Denied any sore throat. CARDIOVASCULAR: No chest pain, orthopnea, PND, no palpitations, no syncope. PULMONARY: No shortness of breath, no cough, no hemoptysis. GASTROINTESTINAL: No diarrhea, no nausea, no vomiting, no abdominal pain. NEUROLOGICAL: No headaches, no weakness, no numbness. HEMATOLOGICAL: Denies any bleeding or petechiae. GENITOURINARY: Denies any burning micturition, frequency, or urgency. MUSCULOSKELETAL/RHEUMATOLOGICAL: Denies any joint pain, swelling, or any muscle pain. ENDOCRINE: Denies any polyuria or polydipsia. The rest of the 14-point review of systems is negative. Past Medical History Past Medical History: Diabetes Mellitus, GERD/Reflux, Hyperlipidemia, Hypertension, Osteoarthritis (OA) Additional Past Medical History / Comment(s): GOUT. LOWER BACK PAIN. HX OF COLON POLYP. ARTHRITIS KNEES. HX ESOPHAGEAL VARICES WITH BANDING., LIVER CIRRHOSIS., NON HEALING WOUND POST BACK SURGERY History of Any Multi-Drug Resistant Organisms: None Reported Past Surgical History: Back Surgery, Cholecystectomy, Joint Replacement, Orthopedic Surgery Additional Past Surgical History / Comment(s): Surgery for deviated septum, bilateral cataracts removed, right knee arthroscopy, wisdom teeth removed, EGD with ESOPHAGEAL BANDS at [place], COLONOSCOPIES, left knee replacement., laminectomy, decompression & fusion. surgery for abcess on back, 2 follow up surgeries Past Anesthesia/Blood Transfusion Reactions: No Reported Reaction Additional Past Anesthesia/Blood Transfusion Reaction / Comment(s): Woke up once when IV infiltrated during EGD. multiple blood transfusions with no reaction Past Psychological History: No Psychological Hx Reported Smoking Status: Former smoker Past Alcohol Use History: Occasional Additional Past Alcohol Use History / Comment(s): STARTED SMOKING AT AGE 18, QUIT AT AGE 22, SMOKED 1/2 PPD. Past Drug Use History: None Reported - Past Family History Mother Family Medical History: No Reported History Medications and Allergies Home Medications Medication Instructions Recorded Confirmed Type Colesevelam [Welchol] 1,875 mg PO AC-SUPPER 09/18/14 07/17/23 History allopurinoL [Zyloprim] 300 mg PO DAILY 09/18/14 07/17/23 History Omeprazole 20 mg PO BID 03/07/21 07/17/23 History Ascorbic Acid [Vitamin C] 1,000 mg PO DAILY 01/28/23 07/17/23 History Aspirin [Adult Low Dose Aspirin EC] 81 mg PO DAILY 01/28/23 07/17/23 History Cholecalciferol [Vitamin D3 (25 50 mcg PO DAILY 04/22/23 07/17/23 History Mcg = 1000 Iu)] Acetaminophen Tab [Tylenol] 650 mg PO Q6HR PRN tab 05/07/23 07/17/23 Rx Ferrous Sulfate [Iron (65 MG 325 mg PO BID 06/03/23 07/17/23 History Elemental)] Furosemide [Lasix] 40 mg PO DAILY 06/03/23 07/17/23 History Furosemide [Lasix] 80 mg PO DAILY 06/03/23 07/17/23 History Lactulose [Cephulac] 20 gm PO BID 06/03/23 07/17/23 History Magnesium Hydroxide [Milk of 7,200 mg PO Q48H PRN 06/03/23 07/17/23 History Magnesia Concentrate] Multivitamin/Iron/Folic Acid 1 tab PO DAILY 06/03/23 07/17/23 History [Centrum Adults Tablet] Na Phos,M-B/Na Phos,Di-Ba [Fleet 133 ml RECTAL DAILY PRN 06/03/23 07/17/23 History Adult] bisacodyL [Dulcolax] 10 mg RECTAL DAILY PRN 06/03/23 07/17/23 History guaiFENesin SYRUP 100MG/5ML 10 ml PO Q6HR PRN 06/03/23 07/17/23 History [Robitussin] Ipratropium-Albuterol Nebulize 3 ml INHALATION RT-QID PRN 06/10/23 07/17/23 History [Duoneb 0.5 mg-3 mg/3 ml Soln] Losartan [Cozaar] 25 mg PO BID 06/10/23 07/17/23 History Magnesium Oxide [Mag-Ox] 400 mg PO BID 06/10/23 07/17/23 History Sennosides-Docusate Sodium 2 tab PO DAILY 06/10/23 07/17/23 History [Senokot-S] Spironolactone [Aldactone] 50 mg PO BID 06/10/23 07/17/23 History Fluticasone Propionate 2 sprays EA NOSTRIL DAILY 07/01/23 07/17/23 History [Fluticasone Propionate [place] 50 mcg Nasal [place]] Hydrocortisone Cream 1 applic TOPICAL BID PRN 07/01/23 07/17/23 History [Hydrocortisone 1% Cream] Natural Tears 2 drop BOTH EYES TID PRN 07/01/23 07/17/23 History Artificial Tears-Hypromellose 2 drops BOTH EYES QID PRN ml 07/06/23 07/17/23 Rx [Artificial Tear Drops] Cyclobenzaprine [Flexeril] 5 mg PO TID PRN tab 07/06/23 07/17/23 Rx HYDROcodone/APAP 7.5-325MG [[place] 1 tab PO Q6HR PRN #12 tab 07/06/23 07/17/23 Rx 7.5-325] Heparin Sodium,Porcine (1 ml) 5,000 unit SQ Q12HR each 07/06/23 07/17/23 Rx [Heparin Sodium] Piperacillin-Tazobactam [Zosyn] 3.375 gm IVPB Q8HR #84 each 07/06/23 07/17/23 Rx Allergies Allergy/AdvReac Type Severity Reaction Status Date / Time Sulfa (Sulfonamide Allergy Rash/Hives Verified 07/17/23 09:35 Antibiotics) Physical Exam Vitals: Vital Signs Temp Pulse Pulse Resp BP BP Pulse Ox 07/17/23 08:00 82 18 07/17/23 06:58 97.7 F 82 18 121/65 99 07/17/23 05:44 87 18 107/71 98 07/17/23 04:00 80 16 114/67 95 07/17/23 03:04 88 12 106/65 96 07/17/23 02:40 84 15 95/67 95 07/17/23 02:20 89 16 102/67 97 07/17/23 01:38 89 12 85/57 97 07/17/23 01:28 97 17 88/58 96 07/17/23 01:00 99 18 88/55 95 07/17/23 00:34 104 H 15 83/59 95 07/16/23 23:58 102 H 16 77/54 97 07/16/23 23:17 107 H 16 73/40 95 07/16/23 23:02 98.7 F 07/16/23 19:43 103.3 F H 140 H 16 108/59 94 L Intake and Output 07/16/23 07/17/23 07/17/23 22:59 06:59 14:59 Other: Weight 68.039 kg 68.039 kg General appearance: alert, in no apparent distress Eye exam: Present: normal appearance Neck exam: Present: normal inspection Respiratory exam: Present: normal lung sounds bilaterally Cardiovascular Exam: Present: tachycardia, systolic murmur GI/Abdominal exam: Present: soft (Patient noted of the lower abdomen. There is a fluid wave. Abdomen not significantly tender on palpation.) Back exam: Present: other (Sutures of the neck appear clean dry and intact with minimal surrounding erythema and warmth. These are not tender on palpation. There is no purulent drainage.) Neurological exam: Present: alert, oriented X3 Skin exam: Present: warm, dry Results CBC & Chem 7: 07/16/23 20:20 07/16/23 20:20 Labs: Abnormal Lab Results - Last 24 Hours (Table) 07/16/23 07/16/23 07/16/23 Range/Units 20:20 20:20 20:20 RBC 2.54 L (4.30-5.90) m/uL Hgb 8.4 L (13.0-17.5) gm/dL Hct 26.5 L (39.0-53.0) % MCV 104.2 H (80.0-100.0) fL RDW 17.9 H (11.5-15.5) % Plt Count 117 L (150-450) k/uL Lymphocytes # 0.4 L (1.0-4.8) k/uL Sodium 133 L (137-145) mmol/L Chloride 110 H (98-107) mmol/L Carbon Dioxide 12 L (22-30) mmol/L BUN 23 H (9-20) mg/dL POC Glucose (mg/dL) (70-110) mg/dL Plasma Lactic Acid Maximilian 5.7 H* (0.7-2.0) mmol/L Calcium 7.8 L (8.4-10.2) mg/dL AST 109 H (17-59) U/L Alkaline Phosphatase 168 H (38-126) U/L Total Protein 5.9 L (6.3-8.2) g/dL Albumin 2.6 L (3.5-5.0) g/dL 07/17/23 Range/Units 11:48 RBC (4.30-5.90) m/uL Hgb (13.0-17.5) gm/dL Hct (39.0-53.0) % MCV (80.0-100.0) fL RDW (11.5-15.5) % Plt Count (150-450) k/uL Lymphocytes # (1.0-4.8) k/uL Sodium (137-145) mmol/L Chloride (98-107) mmol/L Carbon Dioxide (22-30) mmol/L BUN (9-20) mg/dL POC Glucose (mg/dL) 135 H (70-110) mg/dL Plasma Lactic Acid Maximilian (0.7-2.0) mmol/L Calcium (8.4-10.2) mg/dL AST (17-59) U/L Alkaline Phosphatase (38-126) U/L Total Protein (6.3-8.2) g/dL Albumin (3.5-5.0) g/dL Thrombosis Risk Factor Assmnt - Choose All That Apply Any of the Below Risk Factors Present?: Yes Each Factor Represents 1 point: History of prior major surgery (<1month) Other Risk Factors: Yes Each Risk Factor Represents 2 Points: Age 61-74 years Thrombosis Risk Factor Assessment Total Risk Factor Score: 3 Thrombosis Risk Factor Assessment Level: Moderate Risk Assessment and Plan Assessment: 1. Fever/sepsis; recent diagnosis of Streptococcus bacteremia - status post irrigation and debridement of thoracic or lumbar spine, status post ostial discitis treatment with fusion and epidural abscess evacuation, T10- L4 posterior lateral decompression and fusion, L1-L2 interbody fusion for epidural abscess; discharged home on 07/06/2023 -Patient has been evaluated by orthopedic surgery; patient seems stable regards to thoracic/lumbar spine with wound healing well with no evidence signs of infection -- Patient remains on IV antibiotics -ID is consulted and recommendations are pending 2. Hypertension; losartan 25 mg twice daily; Aldactone 25 mg twice daily 3. Hyperlipidemia; WelChol 1875 mg AC supper 4. Diabetes mellitus; currently not on any treatment; we will monitor Accu- Cheks ACHS with insulin sliding scale 5. Hyperuricemia/gout; allopurinol 300 mg daily 6. Vitamin D deficiency; vitamin D3 50 mcg daily 7. Osteoarthritis; Flexeril 5 mg 3 times daily; [place] 7.5 mg every 6 hours as needed DVT prophylaxis; SCDs/subcu heparin CODE STATUS; full code
[2023-07-17] MEDS: KETOROLAC 15 MG/ML 1 ML VIAL IVP PRN (18:00)
[2023-07-17] MEDS: ACETAMINOPHEN TAB 325 MG TAB PO PRN (19:50)
[2023-07-17] MEDS: IPRATROPIUM-ALBUTEROL 3 ML NEB INHALATION PRN (20:15)
[2023-07-17 20:47] LABS: Glucose,Whole Blood 110 mg/dL (70-110)
[2023-07-17] MEDS: LOSARTAN 25 MG TAB PO SCH (21:40)
[2023-07-17] MEDS: FERROUS SULFATE 325 MG TAB PO SCH (21:40)
[2023-07-17] MEDS: HEPARIN SODIUM,PORCINE 5,000 UNIT/ML 1 ML VIAL SQ SCH (21:40)
[2023-07-17] MEDS: MAGNESIUM OXIDE 400 MG TAB PO SCH (21:40)
[2023-07-17] MEDS: LACTULOSE 20 GM/30 ML CUP PO SCH (21:40)
[2023-07-17] MEDS: SPIRONOLACTONE 25 MG TAB PO SCH (21:41)
[2023-07-17 22:17] LABS: Anisocytosis Slight; Basophils % (A) 0 %; Eosinophils % (A) 0 %; HCT 27.7 % (39.0-53.0); HGB 8.5 gm/dL (13.0-17.5); Hypochromasia Slight; Lymphocytes # (A) 0.2 k/uL (1.0-4.8); Lymphocytes % (A) 13 %; MCH 31.9 pg (25.0-35.0); MCHC 30.6 g/dL (31.0-37.0); MCV 104.2 fL (80.0-100.0); Macrocytosis Moderate; Mean Platelet Volume 10.1; Monocytes # (A) 0.1 k/uL (0-1.0); Monocytes % (A) 3 %; Neutrophils # (A) 1.4 k/uL (1.3-7.7); Neutrophils % (A) 82 %; RBC 2.65 m/uL (4.30-5.90); WBC 1.7 k/uL (3.8-10.6)
[2023-07-17 22:29] LABS: African American GFR (CKD) >90 (>60 ml/min/1.73 sqM); Anion Gap 11 mmol/L; Blood Urea Nitrogen 21 mg/dL (9-20); Calcium 7.5 mg/dL (8.4-10.2); Chloride 119 mmol/L (98-107); Glucose 98 mg/dL (74-99); Magnesium 1.4 mg/dL (1.6-2.3); Non-African American GFR(CKD) >90 (>60 ml/min/1.73 sqM); Potassium 3.7 mmol/L (3.5-5.1); Sodium 137 mmol/L (137-145)
[2023-07-17 22:38] LABS: NT-Pro-B-Type Natriuretic Pept 3260 pg/mL
[2023-07-17 23:12] LABS: Carbon Dioxide 7 mmol/L (22-30)
--- NOTE | 2023-07-17 23:44 | P.CONS ---
History of Present Illness - Reason for Consult Consult date: 07/17/23 - History of Present Illness Patient is a 67-year-old male with a past medical history negative for diabetes mellitus hypertension hyperlipidemia osteomyelitis with recent to admission to the hospital and this patient initially diagnosed with a epidural abscess and is status post T10-L4 posterior lateral decompression and fusion subsequently admitted to the hospital for delayed wound healing requiring I&D close cultures were positive for Enterobacter and Pseudomonas and the patient was discharged to senior care on IV Zosyn the patient was currently receiving patient now sent back to the ER for evaluation of fever symptom has been going on for a day or 2 also complaining of significant diarrhea denies any blood or mucus in the stool and did have some abdominal pain patient denies having any headache or URI symptoms no chest pain shortness of breath or cough and denies having any worsening pain in the back area no problem with the PICC line patient on presentation to the hospital did have a fever of 103 F patient was not tachycardic or hypotensive and no need for supplemental oxygen patient did have a white count of 3 point 8 repeat is 1.7 creatinine was normal procalcitonin is 23.80 influenza RSV COVID testing was negative patient has been on Zosyn infectious disease was consulted for further management of antibiotic therapy patient thoracolumbar spine dressing has been changed by orthopedics this morning and mention incision is healing well without any cellulitis Past Medical History Past Medical History: Diabetes Mellitus, GERD/Reflux, Hyperlipidemia, Hypertension, Osteoarthritis (OA) Additional Past Medical History / Comment(s): GOUT. LOWER BACK PAIN. HX OF COLON POLYP. ARTHRITIS KNEES. HX ESOPHAGEAL VARICES WITH BANDING., LIVER CIRRHOSIS., NON HEALING WOUND POST BACK SURGERY History of Any Multi-Drug Resistant Organisms: None Reported Past Surgical History: Back Surgery, Cholecystectomy, Joint Replacement, Orthopedic Surgery Additional Past Surgical History / Comment(s): Surgery for deviated septum, bilateral cataracts removed, right knee arthroscopy, wisdom teeth removed, EGD with ESOPHAGEAL BANDS at [place], COLONOSCOPIES, left knee replacement., laminectomy, decompression & fusion. surgery for abcess on back, 2 follow up colon rgeries Past Anesthesia/Blood Transfusion Reactions: No Reported Reaction Additional Past Anesthesia/Blood Transfusion Reaction / Comm: Woke up once when IV infiltrated during EGD. multiple blood transfusions with no reaction Past Psychological History: No Psychological Hx Reported Smoking Status: Former smoker Past Alcohol Use History: Occasional Additional Past Alcohol Use History / Comment(s): STARTED SMOKING AT AGE 18, QUIT AT AGE 22, SMOKED 1/2 PPD. Past Drug Use History: None Reported - Past Family History Mother Family Medical History: No Reported History Medications and Allergies Home Medications Medication Instructions Recorded Confirmed Type Colesevelam [Welchol] 1,875 mg PO AC-SUPPER 09/18/14 07/17/23 History allopurinoL [Zyloprim] 300 mg PO DAILY 09/18/14 07/17/23 History Omeprazole 20 mg PO BID 03/07/21 07/17/23 History Ascorbic Acid [Vitamin C] 1,000 mg PO DAILY 01/28/23 07/17/23 History Aspirin [Adult Low Dose Aspirin EC] 81 mg PO DAILY 01/28/23 07/17/23 History Cholecalciferol [Vitamin D3 (25 50 mcg PO DAILY 04/22/23 07/17/23 History Mcg = 1000 Iu)] Acetaminophen Tab [Tylenol] 650 mg PO Q6HR PRN tab 05/07/23 07/17/23 Rx Ferrous Sulfate [Iron (65 MG 325 mg PO BID 06/03/23 07/17/23 History Elemental)] Furosemide [Lasix] 40 mg PO DAILY 06/03/23 07/17/23 History Furosemide [Lasix] 80 mg PO DAILY 06/03/23 07/17/23 History Lactulose [Cephulac] 20 gm PO BID 06/03/23 07/17/23 History Magnesium Hydroxide [Milk of 7,200 mg PO Q48H PRN 06/03/23 07/17/23 History Magnesia Concentrate] Multivitamin/Iron/Folic Acid 1 tab PO DAILY 06/03/23 07/17/23 History [Centrum Adults Tablet] Na Phos,M-B/Na Phos,Di-Ba [Fleet 133 ml RECTAL DAILY PRN 06/03/23 07/17/23 History Adult] bisacodyL [Dulcolax] 10 mg RECTAL DAILY PRN 06/03/23 07/17/23 History guaiFENesin SYRUP 100MG/5ML 10 ml PO Q6HR PRN 06/03/23 07/17/23 History [Robitussin] Ipratropium-Albuterol Nebulize 3 ml INHALATION RT-QID PRN 06/10/23 07/17/23 History [Duoneb 0.5 mg-3 mg/3 ml Soln] Losartan [Cozaar] 25 mg PO BID 06/10/23 07/17/23 History Magnesium Oxide [Mag-Ox] 400 mg PO BID 06/10/23 07/17/23 History Sennosides-Docusate Sodium 2 tab PO DAILY 06/10/23 07/17/23 History [Senokot-S] Spironolactone [Aldactone] 50 mg PO BID 06/10/23 07/17/23 History Fluticasone Propionate 2 sprays EA NOSTRIL DAILY 07/01/23 07/17/23 History [Fluticasone Propionate [place] 50 mcg Nasal [place]] Hydrocortisone Cream 1 applic TOPICAL BID PRN 07/01/23 07/17/23 History [Hydrocortisone 1% Cream] Natural Tears 2 drop BOTH EYES TID PRN 07/01/23 07/17/23 History Artificial Tears-Hypromellose 2 drops BOTH EYES QID PRN ml 07/06/23 07/17/23 Rx [Artificial Tear Drops] Cyclobenzaprine [Flexeril] 5 mg PO TID PRN tab 07/06/23 07/17/23 Rx HYDROcodone/APAP 7.5-325MG [[place] 1 tab PO Q6HR PRN #12 tab 07/06/23 07/17/23 Rx 7.5-325] Heparin Sodium,Porcine (1 ml) 5,000 unit SQ Q12HR each 07/06/23 07/17/23 Rx [Heparin Sodium] Piperacillin-Tazobactam [Zosyn] 3.375 gm IVPB Q8HR #84 each 07/06/23 07/17/23 Rx Allergies Allergy/AdvReac Type Severity Reaction Status Date / Time Sulfa (Sulfonamide Allergy Rash/Hives Verified 07/17/23 09:35 Antibiotics) Physical Exam Vitals: Vital Signs Temp Pulse Pulse Resp BP BP Pulse Ox 07/17/23 08:00 82 18 07/17/23 06:58 97.7 F 82 18 121/65 99 07/17/23 05:44 87 18 107/71 98 07/17/23 04:00 80 16 114/67 95 07/17/23 03:04 88 12 106/65 96 07/17/23 02:40 84 15 95/67 95 07/17/23 02:20 89 16 102/67 97 07/17/23 01:38 89 12 85/57 97 07/17/23 01:28 97 17 88/58 96 07/17/23 01:00 99 18 88/55 95 07/17/23 00:34 104 H 15 83/59 95 07/16/23 23:58 102 H 16 77/54 97 07/16/23 23:17 107 H 16 73/40 95 07/16/23 23:02 98.7 F 07/16/23 19:43 103.3 F H 140 H 16 108/59 94 L Intake and Output 07/17/23 07/17/23 07/17/23 06:59 14:59 22:59 Other: Weight 68.039 kg Results CBC & Chem 7: 07/17/23 21:40 07/17/23 21:40 Labs: Abnormal Lab Results - Last 24 Hours (Table) 07/16/23 07/16/23 07/16/23 Range/Units 20:20 20:20 20:20 RBC 2.54 L (4.30-5.90) m/uL Hgb 8.4 L (13.0-17.5) gm/dL Hct 26.5 L (39.0-53.0) % MCV 104.2 H (80.0-100.0) fL RDW 17.9 H (11.5-15.5) % Plt Count 117 L (150-450) k/uL Lymphocytes # 0.4 L (1.0-4.8) k/uL Sodium 133 L (137-145) mmol/L Chloride 110 H (98-107) mmol/L Carbon Dioxide 12 L (22-30) mmol/L BUN 23 H (9-20) mg/dL POC Glucose (mg/dL) (70-110) mg/dL Plasma Lactic Acid Maximilian 5.7 H* (0.7-2.0) mmol/L Calcium 7.8 L (8.4-10.2) mg/dL AST 109 H (17-59) U/L Alkaline Phosphatase 168 H (38-126) U/L Total Protein 5.9 L (6.3-8.2) g/dL Albumin 2.6 L (3.5-5.0) g/dL 07/17/23 Range/Units 11:48 RBC (4.30-5.90) m/uL Hgb (13.0-17.5) gm/dL Hct (39.0-53.0) % MCV (80.0-100.0) fL RDW (11.5-15.5) % Plt Count (150-450) k/uL Lymphocytes # (1.0-4.8) k/uL Sodium (137-145) mmol/L Chloride (98-107) mmol/L Carbon Dioxide (22-30) mmol/L BUN (9-20) mg/dL POC Glucose (mg/dL) 135 H (70-110) mg/dL Plasma Lactic Acid Maximilian (0.7-2.0) mmol/L Calcium (8.4-10.2) mg/dL AST (17-59) U/L Alkaline Phosphatase (38-126) U/L Total Protein (6.3-8.2) g/dL Albumin (3.5-5.0) g/dL Assessment and Plan Plan: 1patient presented hospital with a fever also has leukopenia in this patient currently getting Zosyn for thoracolumbar spine infection culture positive for Enterobacter and Pseudomonas aeruginosa Enterobacter was resistant to cefepime now with significant diarrhea could be the source of this fever such as C. difficile colitis versus PICC line infection 2-we will obtain stool culture and stool for C. difficile and will wait on the blood culture to finalize 3-we will add Questran for symptomatic relief of his diarrhea 4-continue with Zosyn while waiting for the workup to be completed We will follow on clinical condition and cultures to further adjust medication if needed Thank you for this consultation we will follow the patient along with you Dictation was produced using [employer] dictation software. please excuse any grammatical, word or spelling errors. Time with Patient: Greater than 30
[2023-07-18 00:36] LABS: Platelet Count 88 k/uL (150-450); Poikilocytosis (M) Present
[2023-07-18 05:52] LABS: Glucose,Whole Blood 115 mg/dL (70-110)
--- NOTE | 2023-07-18 07:47 | US ---
EXAMINATION TYPE: US venous doppler duplex UE LT DATE OF EXAM: 07/18/2023 COMPARISON: NONE CLINICAL INDICATION: Male, 67 years old with history of fever ?DVT secondry to picc; pt. concerned ab out PICC line SIDE PERFORMED: left Left Arm: Negative for DVT PICC line present in basilic vein, cephalic vein not visualized IMPRESSION: 1. Left upper extremity ultrasound negative for deep venous thrombosis. 2. PICC line present within the basilic vein.
[2023-07-18] MEDS: ASPIRIN 81 MG PO SCH (09:05)
[2023-07-18] MEDS: MULTIVITAMINS, THERA 1 EACH TAB PO SCH (09:05)
[2023-07-18] MEDS: SENNOSIDES-DOCUSATE SODIUM 1 EACH TAB PO SCH (09:05)
[2023-07-18] MEDS: allopurinoL 300 MG TAB PO SCH (09:05)
[2023-07-18] MEDS: CHOLESTYRAMINE (WITH SUGAR) 4 GM PACKET PO SCH (09:16)
[2023-07-18] MEDS: FLUTICASONE 50MCG/SPRAY NASAL 16GM EA NOSTRIL SCH (09:17)
[2023-07-18 10:18] LABS: Blood Urea Nitrogen 25.3 mg/dL (9.0-27.0); Calcium 7.9 mg/dL (8.7-10.3); Carbon Dioxide 13.6 mmol/L (21.6-31.8); Chloride 113 mmol/L (96-109); Glucose 118 mg/dL (70-110); Potassium 3.9 mmol/L (3.5-5.5); Sodium 138 mmol/L (135-145)
[2023-07-18 11:03] LABS: Basophils # (A) 0 X 10*3/uL (0.00-0.10); Basophils % (A) 0 %; Eosinophils # (A) 0 X 10*3/uL (0.04-0.35); Eosinophils % (A) 0 %; HCT 22.3 % (39.6-50.0); HGB 7.1 g/dL (13.0-17.0); Immature Platelet Fraction 4.5 % (1.1-6.1); Lymphocytes # (A) 0.17 X 10*3/uL (0.90-5.00); Lymphocytes % (A) 8.8 %; MCH 31.7 pg (27.0-32.0); MCHC 31.8 g/dL (32.0-37.0); MCV 99.6 FL (80.0-97.0); Mean Platelet Volume 11.5 FL (9.5-12.2); Monocytes # (A) 0.06 X 10*3/uL (0.20-1.00); Monocytes % (A) 3.1 %; NRBC Per 100 WBC 0.02 X 10*3/uL (0.00-0.01); Neutrophils # (A) 1.69 X 10*3/uL (1.80-7.70); Neutrophils % (A) 87.6 %; Platelet Count 49 X 10*3/uL (140-440); RBC 2.24 X 10*6/uL (4.40-5.60); RDW 18.2 % (11.5-14.5); WBC 1.93 X 10*3/uL (4.50-10.00)
[2023-07-18 11:22] LABS: Erythrocyte Sedimentation Rate 13 mm/Hr (0-20)
[2023-07-18 11:42] LABS: Glucose,Whole Blood 100 mg/dL (70-110)
--- NOTE | 2023-07-18 11:50 | P.PN ---
Subjective Progress Note Date: 07/18/23 Patient is evaluated today at bedside, he is resting in his hospital chair. Patient is feeling a lot worse today states with regards to his abdominal discomfort, he feels that this is aggravating his back. Patient has been doing a good job of staying off of his incision. Nursing mention patient did go into A-fib and has dealt with an elevated heart rate overnight. Hemoglobin was noted at 7 today. His CRP was 6.3. Patient denies any lower extremity symptoms, this to include numbness or tingling, new onset weakness. He denies any loss of bowel or bladder function at this time. Objective - Vital Signs Vital signs: Vital Signs Temp 98.2 F 07/18/23 06:59 Pulse 111 H 07/18/23 08:55 Resp 20 07/18/23 08:55 BP 110/69 07/18/23 06:59 Pulse Ox 98 07/18/23 06:59 FiO2 Intake & Output 07/17/23 07/18/23 07/18/23 18:59 06:59 18:59 Output Total 2 Balance -2 Output: Urine 2 Stool 0 Other: Voiding Method Toilet Toilet Urinal Urinal # Voids 5 # Bowel Movements 1 - Exam Gen: AOx3, NAD VSS stable at this time Integument: Optifoam dressing is in good position and condition, there is no spotting visualized. There is no surrounding erythema. There is no fluctuance appreciated along the borders. Palpation: No significant tenderness is appreciated throughout the thoracic and lumbar spine ROM: Full range of motion in all major muscle groups of the bilateral upper and lower extremities, no focal deficits Sensory Exam: Senory exam to light touch is intact C5-T1 Sen[place]ry exam to light touch is intact L2-S1 Motor: 4/5 strength appreciated the bilateral lower extremities with hip flexion, knee extension, knee flexion, plantarflexion, dorsiflexion, EHL, FHL Reflexes: 2/4 in all UE and LE Negative Diana's bilaterally, negative Babinski bilaterally - Labs CBC & Chem 7: 07/18/23 05:10 07/18/23 05:10 Labs: Abnormal Lab Results - Last 24 Hours (Table) 07/17/23 07/17/23 07/17/23 Range/Units 11:48 14:54 14:54 WBC (3.8-10.6) k/uL RBC (4.30-5.90) m/uL Hgb (13.0-17.5) gm/dL Hct (39.0-53.0) % MCV (80.0-100.0) fL MCHC (31.0-37.0) g/dL RDW (11.5-15.5) % Plt Count (150-450) k/uL Neutrophils # (1.80-7.70) X 10*3/uL Lymphocytes # (1.0-4.8) k/uL Monocytes # (0.20-1.00) X 10*3/uL Eosinophils # (0.04-0.35) X 10*3/uL NRBC/100 WBC Diff (0.00-0.01) X 10*3/uL Chloride (98-107) mmol/L Carbon Dioxide (22-30) mmol/L BUN (9-20) mg/dL BUN/Creatinine Ratio (12.00-20.00) Ratio Glucose (70-110) mg/dL POC Glucose (mg/dL) 135 H (70-110) mg/dL Calcium (8.4-10.2) mg/dL Magnesium (1.6-2.3) mg/dL C-Reactive Protein 6.9 H (<1.0) mg/dL Procalcitonin 23.80 H (0.02-0.09) ng/mL 07/17/23 07/17/23 07/17/23 Range/Units 16:44 21:40 21:40 WBC 1.7 L (3.8-10.6) k/uL RBC 2.65 L (4.30-5.90) m/uL Hgb 8.5 L (13.0-17.5) gm/dL Hct 27.7 L (39.0-53.0) % MCV 104.2 H (80.0-100.0) fL MCHC 30.6 L (31.0-37.0) g/dL RDW 18.0 H (11.5-15.5) % Plt Count 88 L (150-450) k/uL Neutrophils # (1.80-7.70) X 10*3/uL Lymphocytes # 0.2 L (1.0-4.8) k/uL Monocytes # (0.20-1.00) X 10*3/uL Eosinophils # (0.04-0.35) X 10*3/uL NRBC/100 WBC Diff (0.00-0.01) X 10*3/uL Chloride 119 H (98-107) mmol/L Carbon Dioxide 7 L* (22-30) mmol/L BUN 21 H (9-20) mg/dL BUN/Creatinine Ratio (12.00-20.00) Ratio Glucose (70-110) mg/dL POC Glucose (mg/dL) 118 H (70-110) mg/dL Calcium 7.5 L (8.4-10.2) mg/dL Magnesium 1.4 L (1.6-2.3) mg/dL C-Reactive Protein (<1.0) mg/dL Procalcitonin (0.02-0.09) ng/mL 07/18/23 07/18/23 07/18/23 Range/Units 05:10 05:10 05:45 WBC 1.93 L (3.8-10.6) k/uL RBC 2.24 L (4.30-5.90) m/uL Hgb 7.1 L (13.0-17.5) gm/dL Hct 22.3 L (39.0-53.0) % MCV 99.6 H (80.0-100.0) fL MCHC 31.8 L (31.0-37.0) g/dL RDW 18.2 H (11.5-15.5) % Plt Count 49 L (150-450) k/uL Neutrophils # 1.69 L (1.80-7.70) X 10*3/uL Lymphocytes # 0.17 L (1.0-4.8) k/uL Monocytes # 0.06 L (0.20-1.00) X 10*3/uL Eosinophils # 0 L (0.04-0.35) X 10*3/uL NRBC/100 WBC Diff 0.02 H (0.00-0.01) X 10*3/uL Chloride 113 H (98-107) mmol/L Carbon Dioxide 13.6 L (22-30) mmol/L BUN (9-20) mg/dL BUN/Creatinine Ratio 25.30 H (12.00-20.00) Ratio Glucose 118 H (70-110) mg/dL POC Glucose (mg/dL) 115 H (70-110) mg/dL Calcium 7.9 L (8.4-10.2) mg/dL Magnesium (1.6-2.3) mg/dL C-Reactive Protein 6.30 H (<1.0) mg/dL Procalcitonin (0.02-0.09) ng/mL Microbiology - Last 24 Hours (Table) 07/16/23 22:45 Blood Culture - Preliminary Blood 07/16/23 22:30 Blood Culture - Preliminary Blood Assessment and Plan Assessment: History of T10-L4 posterior lateral decompression and fusion, L1-L2 interbody fusion for epidural abscess History of incision with irrigation and debridement due to wound dehiscence, seroma, continuing infection x 2 (Most recent 07/06/2023) Fevers, resolved End-stage liver disease Ascites Anemia Multiple medical comorbidities Plan: I was able to discuss the case, this to include both physical exam findings and imaging studies my attending Dr. Narayanan Currently patient seems stable with regards to his thoracic/lumbar spine. The wound is healing well at this time, there is no evident signs of worsening infection. Patient remains on IV antibiotics at this time. Continue to monitor surgical dressing Discussed with nursing, recommending cardiology consult with regards to recent A-fib, recommending consult to interventional radiology for evaluation of ascites for possible paracentesis. Would also recommend consulting general surgery with regards to the patient's loose stools, abdominal discomfort and history of liver disease. Consult was placed for hematology/oncology due to pancytopenia Weight-bear as tolerated, recommend use of a walker DVT prophylaxis per primary medical service Continue IV antibiotics Other medical specialty recommendations appreciated Will continue to follow during hospital stay
[2023-07-18 14:20] LABS: Glucose,Whole Blood 91 mg/dL (70-110)
--- NOTE | 2023-07-18 14:48 | P.PN ---
Subjective Progress Note Date: 07/18/23 67-year-old male with a past medical history significant for GERD, hypertension, hyperlipidemia, diabetes mellitus, cirrhosis with recent discharge from the hospital secondary to Streptococcus bacteremia status post irrigation and debridement of thoracic or lumbar spine, status post ostial discitis treatment with fusion and epidural abscess evacuation discharged home on 07/06/2023 presenting to the ED with complaints of fever over the last 2 to 3 days. Reports no increases in back pain. Reports that he has been continuing IV antibiotics (Zosyn) at his facility. Does note some abdominal pain which he states is severe in nature and is chronic in nature. There was some bruising noted on examination and patient reports that this has been there for a while and has not recently increased in severity. Aside from fever and chills and note of minimal abdominal pain, patient denies any other complaints. No chest pains or shortness of breath. No nausea vomiting diarrhea. CBC shows no elevation in white blood cell count. Chemistry panel is largely unremarkable however lactic acid initially elevated at 5.7 however after fluid resuscitation repeat at 1.5. Serology panel unremarkable. Chest x-ray revealed no evidence of pneumonia. Urinalysis is pending. At this time, 3:39 AM, definite source of fever not identified. Pressors were considered given patient's hypotension in the high 70s to 80s systolic however after fluid resuscitation patient's blood pressure at 100 systolic with a mean pressure at 77. Repeat blood cultures were obtained. Patient was started on Levaquin. He will be admitted with consultations to infectious disease and orthopedics. --Patient had episode of fever and chills through the night; continues to complain of feeling cold; patient is a poor historian; does say he has abdominal pain when inquired -- Abdomen is distended with mild diffuse tenderness; we will order ultrasound paracentesis and send fluid for lab studies -Will obtain chest x-ray and a BNP -Patient remains on IV antibiotics Objective - Vital Signs Vital signs: Vital Signs Temp 98.2 F 07/18/23 06:59 Pulse 111 H 07/18/23 08:55 Resp 20 07/18/23 08:55 BP 110/69 07/18/23 06:59 Pulse Ox 98 07/18/23 06:59 FiO2 Intake & Output 07/17/23 07/18/23 07/18/23 18:59 06:59 18:59 Output Total 2 Balance -2 Output: Urine 2 Stool 0 Other: Voiding Method Toilet Toilet Urinal Urinal # Voids 5 # Bowel Movements 1 - Exam General appearance: alert, in no apparent distress Eye exam: Present: normal appearance Neck exam: Present: normal inspection Respiratory exam: Present: normal lung sounds bilaterally Cardiovascular Exam: Present: tachycardia, systolic murmur GI/Abdominal exam: Present: soft (Patient noted of the lower abdomen. There is a fluid wave. Abdomen not significantly tender on palpation.) Back exam: Present: other (Sutures of the neck appear clean dry and intact with minimal surrounding erythema and warmth. These are not tender on palpation. There is no purulent drainage.) Neurological exam: Present: alert, oriented X3 Skin exam: Present: warm, dry - Labs CBC & Chem 7: 07/18/23 05:10 07/18/23 05:10 Labs: Abnormal Lab Results - Last 24 Hours (Table) 07/17/23 07/17/23 07/17/23 Range/Units 11:48 14:54 14:54 WBC (3.8-10.6) k/uL RBC (4.30-5.90) m/uL Hgb (13.0-17.5) gm/dL Hct (39.0-53.0) % MCV (80.0-100.0) fL MCHC (31.0-37.0) g/dL RDW (11.5-15.5) % Plt Count (150-450) k/uL Neutrophils # (1.80-7.70) X 10*3/uL Lymphocytes # (1.0-4.8) k/uL Monocytes # (0.20-1.00) X 10*3/uL Eosinophils # (0.04-0.35) X 10*3/uL NRBC/100 WBC Diff (0.00-0.01) X 10*3/uL Chloride (98-107) mmol/L Carbon Dioxide (22-30) mmol/L BUN (9-20) mg/dL BUN/Creatinine Ratio (12.00-20.00) Ratio Glucose (70-110) mg/dL POC Glucose (mg/dL) 135 H (70-110) mg/dL Calcium (8.4-10.2) mg/dL Magnesium (1.6-2.3) mg/dL C-Reactive Protein 6.9 H (<1.0) mg/dL Procalcitonin 23.80 H (0.02-0.09) ng/mL 07/17/23 07/17/23 07/17/23 Range/Units 16:44 21:40 21:40 WBC 1.7 L (3.8-10.6) k/uL RBC 2.65 L (4.30-5.90) m/uL Hgb 8.5 L (13.0-17.5) gm/dL Hct 27.7 L (39.0-53.0) % MCV 104.2 H (80.0-100.0) fL MCHC 30.6 L (31.0-37.0) g/dL RDW 18.0 H (11.5-15.5) % Plt Count 88 L (150-450) k/uL Neutrophils # (1.80-7.70) X 10*3/uL Lymphocytes # 0.2 L (1.0-4.8) k/uL Monocytes # (0.20-1.00) X 10*3/uL Eosinophils # (0.04-0.35) X 10*3/uL NRBC/100 WBC Diff (0.00-0.01) X 10*3/uL Chloride 119 H (98-107) mmol/L Carbon Dioxide 7 L* (22-30) mmol/L BUN 21 H (9-20) mg/dL BUN/Creatinine Ratio (12.00-20.00) Ratio Glucose (70-110) mg/dL POC Glucose (mg/dL) 118 H (70-110) mg/dL Calcium 7.5 L (8.4-10.2) mg/dL Magnesium 1.4 L (1.6-2.3) mg/dL C-Reactive Protein (<1.0) mg/dL Procalcitonin (0.02-0.09) ng/mL 07/18/23 07/18/23 07/18/23 Range/Units 05:10 05:10 05:45 WBC 1.93 L (3.8-10.6) k/uL RBC 2.24 L (4.30-5.90) m/uL Hgb 7.1 L (13.0-17.5) gm/dL Hct 22.3 L (39.0-53.0) % MCV 99.6 H (80.0-100.0) fL MCHC 31.8 L (31.0-37.0) g/dL RDW 18.2 H (11.5-15.5) % Plt Count 49 L (150-450) k/uL Neutrophils # 1.69 L (1.80-7.70) X 10*3/uL Lymphocytes # 0.17 L (1.0-4.8) k/uL Monocytes # 0.06 L (0.20-1.00) X 10*3/uL Eosinophils # 0 L (0.04-0.35) X 10*3/uL NRBC/100 WBC Diff 0.02 H (0.00-0.01) X 10*3/uL Chloride 113 H (98-107) mmol/L Carbon Dioxide 13.6 L (22-30) mmol/L BUN (9-20) mg/dL BUN/Creatinine Ratio 25.30 H (12.00-20.00) Ratio Glucose 118 H (70-110) mg/dL POC Glucose (mg/dL) 115 H (70-110) mg/dL Calcium 7.9 L (8.4-10.2) mg/dL Magnesium (1.6-2.3) mg/dL C-Reactive Protein 6.30 H (<1.0) mg/dL Procalcitonin (0.02-0.09) ng/mL Microbiology - Last 24 Hours (Table) 07/16/23 22:45 Blood Culture - Preliminary Blood 07/16/23 22:30 Blood Culture - Preliminary Blood Assessment and Plan Assessment: 1. Fever/sepsis; recent diagnosis of Streptococcus bacteremia - status post irrigation and debridement of thoracic or lumbar spine, status post ostial discitis treatment with fusion and epidural abscess evacuation, T10- L4 posterior lateral decompression and fusion, L1-L2 interbody fusion for epidural abscess; discharged home on 07/06/2023 -Patient has been evaluated by orthopedic surgery; patient seems stable regards to thoracic/lumbar spine with wound healing well with no evidence signs of infection -- Patient remains on IV antibiotics -ID is consulted and recommendations are pending 2. Hypertension; losartan 25 mg twice daily; Aldactone 25 mg twice daily 3. Hyperlipidemia; WelChol 1875 mg AC supper 4. Diabetes mellitus; currently not on any treatment; we will monitor Accu- Cheks ACHS with insulin sliding scale 5. Hyperuricemia/gout; allopurinol 300 mg daily 6. Vitamin D deficiency; vitamin D3 50 mcg daily 7. Osteoarthritis; Flexeril 5 mg 3 times daily; [place] 7.5 mg every 6 hours as needed DVT prophylaxis; SCDs/subcu heparin CODE STATUS; full code
--- NOTE | 2023-07-18 15:00 | CT ---
EXAMINATION TYPE: CODE STROKE: CT brain wo contr CT DLP: mGycm, Automated exposure control for dose reduction was used. DATE OF EXAM: 07/18/2023 2:40 PM COMPARISON: None. CLINICAL INDICATION:Male, 67 years old with history of r/o stroke, neuro deficit- facial drooping, ri ght side weakness, AMS. TECHNIQUE: Brain: Axial CT images of the brain were obtained with coronal and sagittal reformats created and rev iewed. Contrast used: None. Oral contrast used: None. FINDINGS: Moderately large extra-axial fluid collection on the left overlying the frontal and parietal lobes, w hich in total extent measures 10.8 cm AP, 7.3 cm craniocaudal, and 3 cm transverse. This contains a f luid fluid level, slightly more than half anteriorly appears hypodense with attenuation 15. Hyperdens e posterior component has attenuation 50. This places mass effect on the subjacent brain, with loss of normal sulcation pattern, partial compre ssion of the left lateral ventricle, and midline shift towards the right of just over 8 mm. Third denia tricle and foramina of Monro are also slightly bowed to the right but appear patent at this time. Fal x cerebri bows towards the right as well without evidence of transfalcine herniation. Other ventricles are mildly prominent likely sequela of brain volume loss. No evidence of parenchymal hemorrhage or loss of smith/white matter distinction. Mild generalized brai n atrophy with associated enlargement of the ventricles and CSF spaces. Basilar cisterns are patent. No acute cerebellar abnormality is seen. No cerebellar tonsillar ectopia. The craniocervical junction appears intact with mild degenerative changes of the upper cervical spine seen. No acute calvarial fracture. Visualized paranasal sinuses and mastoid air cells are clear. No acute a bnormality of the orbits. There has been prior lens surgery bilaterally. Extracranial soft tissues ar e unremarkable. IMPRESSION: 1. Moderately large, acute on chronic, left-sided subdural hematoma overlying the frontal and pariet al lobes. 2. Subjacent mass effect is present, with partial compression of the left lateral ventricle and midl ine shift towards the right of 8 mm. 3. Falx cerebri, foramen of Monro and third ventricle bow towards the right but remain patent. 4. Other ventricles are mildly prominent likely sequela of brain volume loss. Follow-up to assess fo r any possible developing hydrocephalus.
[2023-07-18 15:04] LABS: Glucose,Whole Blood 95 mg/dL (70-110)
[2023-07-18 16:20] LABS: Anisocytosis Slight; Basophils % (A) 1 %; Eosinophils % (A) 0 %; HCT 24.7 % (39.0-53.0); HGB 7.7 gm/dL (13.0-17.5); Hypochromasia Moderate; Lymphocytes # (A) 0.2 k/uL (1.0-4.8); Lymphocytes % (A) 15 %; MCH 32.5 pg (25.0-35.0); MCHC 31.2 g/dL (31.0-37.0); MCV 104.2 fL (80.0-100.0); Macrocytosis Moderate; Mean Platelet Volume 10.3; Monocytes % (A) 2 %; Neutrophils # (A) 1.2 k/uL (1.3-7.7); Neutrophils % (A) 79 %; RBC 2.37 m/uL (4.30-5.90); RDW 18.4 % (11.5-15.5); WBC 1.6 k/uL (3.8-10.6)
--- NOTE | 2023-07-18 16:22 | CT ---
EXAMINATION TYPE: CODE STROKE: CTA head neck DATE OF EXAM: 07/18/2023 3:04 PM COMPARISON: Same day noncontrast CT head. CLINICAL INDICATION:Male, 67 years old with history of r/o stroke; PHH, NEURO deficit- facial droopin g, right side weakness, AMS. TECHNIQUE: Axially acquired helical CT angiogram of the head and neck was obtained with contrast. Axi al images are supplemented with 3D reconstructions which [facility] NASCET criteria used. Contrast used: 65ml mL of Isovue 370 with IV Contrast, Oral contrast used: None. CT DLP: 442.5 mGycm, Automated exposure control for dose reduction was used. FINDINGS: CTA Neck: Mild aortic calcification. There is calcification along the arch which is greatest near the origin of the left subclavian artery, with mild to moderate stenosis of the proximal subclavian suggested. Vertebral arteries: The origins of the vertebral bodies are not well seen. Both vertebrals appear dim inutive in caliber, the right is slightly dominant. Vertebrals appear patent throughout the neck to t he skull base. Right carotid system: The common carotid is patent. Heavy calcification at the carotid bifurcation an d extending into the proximal ICA and ECA, with approximately 75% diameter stenosis of the ICA, and u nder 50% stenosis of the ECA. Left carotid system: The common carotid is patent. Heavy calcification of the carotid bifurcation ext ending into the proximal ICA and ECA, with approximately 60% diameter stenosis of the ICA, and under 50% stenosis of the ECA. Other: Visualized neck soft tissues show no concerning abnormality. Cervical spine shows moderate to severe degenerative disc disease with near complete interbody fusion C4-C5 and C6-C7. Disc marginal o steophytes at several levels resulting in at least moderate canal and foraminal stenoses at every lev el, save for C2-C3. Degenerative changes of the anterior C1-C2 articulation. The lateral articulation s at C1-C2 appear shifted, due to patient's rotated head position. Limited views of the upper chest show mild pulmonary scarring/senescent changes. Bandlike opacity on the right suggesting atelectasis. No visualized pneumothorax. Left arm PICC line with its tip in the SVC. Included heart appears mildly enlarged. Moderate calcific ations of the coronary arteries. CTA Head: Examination limited by patient's head position. There are moderate calcifications of the petrous portion of the right ICA and throughout the length o f the ICA cavernous segments bilaterally, with less than 50% diameter stenosis seen at any one point. The supraclinoid vessels are patent. Patent carotid termini bilaterally with patent MCAs and ACAs bilaterally. Anterior communicating kedar ry is not clearly seen. There is some bowing towards the right of the distal TAO branches related to mass effect from the left-sided subdural hematoma, but the vessels appear to remain patent. Similarly , there is some displacement of distal left MCA branches along with the corresponding brain parenchym a. Slightly irregular appearance of the intracranial arteries, likely from atherosclerosis. In the posterior circulation, there is focal calcification of the right vertebral V4 segment without hemodynamically significant stenosis. The basilar artery appears patent and mildly tortuous. The basi lar bifurcation is patent without evidence of aneurysm. Visualized proximal conference assistant appear patent. There appear to be bilateral patent posterior communicating arteries, left slightly larger than right. No intracranial large vessel occlusion, hemodynamically significant stenosis, aneurysm, dissection, o r arteriovenous malformation is shown. The dural venous sinuses appear grossly patent without evidence of thrombosis. Other: Please refer to same-day CT head report for further description of findings. IMPRESSION: CTA neck: 1. No dissection or pseudoaneurysm detected in the carotid or vertebral arteries in the neck. 2. Atherosclerotic disease is present, with heavy calcifications of the bilateral carotid bifurcation s and proximal ICAs, causing 75% diameter stenosis of the right ICA and 60% diameter stenosis of the left ICA. CTA head: Moderate calcification of the cavernous segments of the ICAs bilaterally, with less than 50 % diameter stenosis at any one point. 1. Mild intracranial atherosclerotic disease. 2. No intracranial large vessel occlusion, significant stenosis, or sizable aneurysm detected in the limits of CTA.
[2023-07-18 16:25] LABS: Platelet Count 45 k/uL (150-450)
[2023-07-18 16:33] LABS: ALT 65 U/L (4-49); AST 310 U/L (17-59); African American GFR (CKD) >90 (>60 ml/min/1.73 sqM); Albumin 2.2 g/dL (3.5-5.0); Albumin/Globulin Ratio 0.7; Alkaline Phosphatase 182 U/L (38-126); Anion Gap 8 mmol/L; Blood Urea Nitrogen 25 mg/dL (9-20); Calcium 8.1 mg/dL (8.4-10.2); Carbon Dioxide 12 mmol/L (22-30); Chloride 119 mmol/L (98-107); Glucose 91 mg/dL (74-99); Non-African American GFR(CKD) >90 (>60 ml/min/1.73 sqM); Sodium 139 mmol/L (137-145); Total Protein 5.2 g/dL (6.3-8.2)
[2023-07-18 16:35] LABS: INR 1.5 (<1.2); Partial Thromboplastin Time 64.7 sec (22.0-30.0); Prothrombin Time 15.4 sec (10.0-12.5)
--- NOTE | 2023-07-18 16:38 | XR ---
EXAM: XR chest 1V portable CLINICAL INDICATION:Male, 67 years old with history of ascites; PHH COMPARISON: 07/16/2023 TECHNIQUE: Chest single view. FINDINGS: Lines/tubes/devices: Left arm PICC line tip over the upper right atrium. EKG leads. Cardiomediastinum: Cardiac silhouette appears mildly enlarged. Stable mediastinal silhouette. Aortic calcifications. Vasculature: No increased pulmonary vasculature. Lungs/pleura: No consolidation, sizeable effusion, or visible pneumothorax. Scattered scarring and senescent change s. Bones/soft tissues: Bony thorax appears grossly intact as seen. Regional soft tissues appear unremarkable for acute proce ss. Elevated right hemidiaphragm again noted. Partially seen lumbar fusion hardware. IMPRESSION: Overall stable exam, without acute cardiopulmonary findings.
[2023-07-18 16:43] LABS: NT-Pro-B-Type Natriuretic Pept 8590 pg/mL
[2023-07-18] MEDS: LABETALOL 5 MG/ML VIAL MDV IVP STA (19:49)
[2023-07-18] MEDS: levETIRAcetam IV 500 MG/5 ML VIAL IVP SCH (20:48)
--- NOTE | 2023-07-18 21:02 | CT ---
EXAMINATION TYPE: CT brain wo con DATE OF EXAM: 07/18/2023 COMPARISON: 07/18/2023 earlier 1440 exam INDICATION: Worsening mental status changes. DLP: 1160.4 mGycm, Automated exposure control for dose reduction was used. CONTRAST: None CT of the brain is performed utilizing 3 mm thick sections through the posterior fossa and 3 mm thick sections through the remaining calvarium. Study is performed within 24 hours of arrival to the hosp ital. The previous large left subdural hematoma with a fluid fluid level is again evident. This has increas ed from 3.2 to 4.0 cm in depth. Subfalcine herniation likewise is increasing over the interval curren tly measuring 1.7 cm shift from the left to the right. There is a new hemorrhage measuring 2.1 x 1.2 cm just anterior to the layered subdural hematoma, series 2033, image 35. Quadrigeminal plate appears to be patent. Ambient cistern appears to be patent. These are diminished however from the comparison . Hypodensity is developing in the left occipital lobe. Hypodensity and effacement of sulci is also dev eloping to the left temporal lobe. Hemorrhages extending from the left middle cranial fossa more supe riorly which is an interval change.r this portion of the subdural hematoma which extends towards the larger collection is currently 0.5 cm was not present previously. Fourth ventricle appears normal and midline. Third ventricle is effaced and appears to be right of midline. There is some rounding of th e temporal horn right lateral ventricle. There is effacement of the temporal horn left lateral ventri ilsa. Paranasal sinuses and mastoid air cells within the [id number] are clear. IMPRESSION: 1. Increasing size of large left subdural hematoma with increasing left to right midline shift and subfalcine herniation. 2. New hemorrhage which may be intraparenchymal in the region of the frontoparietal junction. 3. Appears to be new subdural hemorrhage measuring 0.5 cm in depth extending from the left middle scrap picker nial fossa towards the previous subdural hemorrhage. 4. Report was called to [facility] [employer] by Dr. Coy by telephone 0839 hours 07/18/2023. A Red level critical message alert has been initiated for Alan Lange MD via the [employer] on 07/18/2023 8:38 PM. This message alert has been sent to Alan Lange MD via the preferences provided by the clinician for the receipt of Radiology Critical Findings. Message ID [id number].
[2023-07-18] MEDS: MORPHINE SULFATE (100 MG/2 ML) 100 MG in SODIUM CHLORIDE 0.9% 100 ML IV SCH (23:24)
[2023-07-18] MEDS: SCOPOLAMINE 1 MG/72 HR PATCH TRANSDERM SCH (23:25)
--- NOTE | 2023-07-19 01:12 | P.CNPUL ---
History of Present Illness Consult date: 07/19/23 Requesting physician: Gianni Chaney Reason for consult: other (Subdural hematoma; ICU management) Chief complaint: Altered mental status, fever History of present illness: Patient is a 67-year-old white male with past medical history significant for diabetes mellitus, hypertension liver cirrhosis, esophageal varices, and more recent a epidural abscess with discitis. He was originally noted to have an epidural abscess with discitis back in April,. He underwent T10-L4 decompression and epidural phlegmon evacuation and stabilization. He received IV antibiotics outpatient. More recently, he underwent repeat surgery including incision and drainage with irrigation and debridement of the lumbar spine. Wound cultures were positive for Enterobacter Cloacae and Pseudomonas aeruginosa. He was discharged to [facility] on 07/06/2023 with IV antibiotics in the form of Zosyn. He returned to the emergency room on 07/16/23 with a chief complaint of fever over the last 2 to 3 days, and he was admitted to the hospital. Yesterday afternoon, at 1225, the nurse aide went to get the patient's vitals and noted him not to be responding. A code stroke was activated. Initial brain CT showed a moderately large acute on chronic left-sided subdural hematoma overlying the frontal and parietal lobes. There was subadjacent mass effect with partial compression of the left lateral ventricle and midline shift towards the right of 8 mm. No reported trauma or falls. Patient was then moved to the intensive care unit for closer monitoring. He was already a DO NOT RESUSCITATE/DO NOT INTUBATE, and for this reason he is not intubated. Interventional neurologist evaluated the patient during the code stroke protocol. Initial plan was to transfer to tertiary care center, and the patient was accepted at [facility]. Patient did have a follow-up brain CT at our facility which showed an increasing size of the large left subdural hematoma with increasing left to right midline shift and subfalcine herniation. There was new hemorrhage which may be intraparenchymal in the region of the frontal parietal junction. There was also what appeared to be a new subdural hemorrhage measuring 0.5 cm in the depth extending from the left mid cranial fossa towards the previous subdural hemorrhage. The staff neurologist had reviewed the case. Patient is currently unresponsive to any kind of stimuli. GCS 3. Overall prognosis is extremely poor. Patient's family has elected to forego transfer. They do not want any further medical intervention. They do not want any intubation or supportive care. They would like to proceed with comfort care measures. Review of Systems ROS unobtainable: due to mental status Past Medical History Past Medical History: Diabetes Mellitus, GERD/Reflux, Hyperlipidemia, Hypertens ion, Osteoarthritis (OA) Additional Past Medical History / Comment(s): GOUT. LOWER BACK PAIN. HX OF COLON POLYP. ARTHRITIS KNEES. HX ESOPHAGEAL VARICES WITH BANDING., LIVER CIRRHOSIS., NON HEALING WOUND POST BACK SURGERY History of Any Multi-Drug Resistant Organisms: None Reported Past Surgical History: Back Surgery, Cholecystectomy, Joint Replacement, Orthopedic Surgery Additional Past Surgical History / Comment(s): Surgery for deviated septum, bilateral cataracts removed, right knee arthroscopy, wisdom teeth removed, EGD with ESOPHAGEAL BANDS at [place], COLONOSCOPIES, left knee replacement., laminectomy, decompression & fusion. surgery for abcess on back, 2 follow up surgeries Past Anesthesia/Blood Transfusion Reactions: No Reported Reaction Additional Past Anesthesia/Blood Transfusion Reaction / Comment(s): Woke up once when IV infiltrated during EGD. multiple blood transfusions with no reaction Past Psychological History: No Psychological Hx Reported Smoking Status: Former smoker Past Alcohol Use History: Occasional Additional Past Alcohol Use History / Comment(s): STARTED SMOKING AT AGE 18, QUIT AT AGE 22, SMOKED 1/2 PPD. Past Drug Use History: None Reported - Past Family History Mother Family Medical History: No Reported History Medications and Allergies Home Medications Medication Instructions Recorded Confirmed Type Colesevelam [Welchol] 1,875 mg PO AC-SUPPER 09/18/14 07/17/23 History allopurinoL [Zyloprim] 300 mg PO DAILY 09/18/14 07/17/23 History Omeprazole 20 mg PO BID 03/07/21 07/17/23 History Ascorbic Acid [Vitamin C] 1,000 mg PO DAILY 01/28/23 07/17/23 History Aspirin [Adult Low Dose Aspirin EC] 81 mg PO DAILY 01/28/23 07/17/23 History Cholecalciferol [Vitamin D3 (25 50 mcg PO DAILY 04/22/23 07/17/23 History Mcg = 1000 Iu)] Acetaminophen Tab [Tylenol] 650 mg PO Q6HR PRN tab 05/07/23 07/17/23 Rx Ferrous Sulfate [Iron (65 MG 325 mg PO BID 06/03/23 07/17/23 History Elemental)] Furosemide [Lasix] 40 mg PO DAILY 06/03/23 07/17/23 History Furosemide [Lasix] 80 mg PO DAILY 06/03/23 07/17/23 History Lactulose [Cephulac] 20 gm PO BID 06/03/23 07/17/23 History Magnesium Hydroxide [Milk of 7,200 mg PO Q48H PRN 06/03/23 07/17/23 History Magnesia Concentrate] Multivitamin/Iron/Folic Acid 1 tab PO DAILY 06/03/23 07/17/23 History [Centrum Adults Tablet] Na Phos,M-B/Na Phos,Di-Ba [Fleet 133 ml RECTAL DAILY PRN 06/03/23 07/17/23 History Adult] bisacodyL [Dulcolax] 10 mg RECTAL DAILY PRN 06/03/23 07/17/23 History guaiFENesin SYRUP 100MG/5ML 10 ml PO Q6HR PRN 06/03/23 07/17/23 History [Robitussin] Ipratropium-Albuterol Nebulize 3 ml INHALATION RT-QID PRN 06/10/23 07/17/23 History [Duoneb 0.5 mg-3 mg/3 ml Soln] Losartan [Cozaar] 25 mg PO BID 06/10/23 07/17/23 History Magnesium Oxide [Mag-Ox] 400 mg PO BID 06/10/23 07/17/23 History Sennosides-Docusate Sodium 2 tab PO DAILY 06/10/23 07/17/23 History [Senokot-S] Spironolactone [Aldactone] 50 mg PO BID 06/10/23 07/17/23 History Fluticasone Propionate 2 sprays EA NOSTRIL DAILY 07/01/23 07/17/23 History [Fluticasone Propionate [place] 50 mcg Nasal [place]] Hydrocortisone Cream 1 applic TOPICAL BID PRN 07/01/23 07/17/23 History [Hydrocortisone 1% Cream] Natural Tears 2 drop BOTH EYES TID PRN 07/01/23 07/17/23 History Artificial Tears-Hypromellose 2 drops BOTH EYES QID PRN ml 07/06/23 07/17/23 Rx [Artificial Tear Drops] Cyclobenzaprine [Flexeril] 5 mg PO TID PRN tab 07/06/23 07/17/23 Rx HYDROcodone/APAP 7.5-325MG [[place] 1 tab PO Q6HR PRN #12 tab 07/06/23 07/17/23 Rx 7.5-325] Heparin Sodium,Porcine (1 ml) 5,000 unit SQ Q12HR each 07/06/23 07/17/23 Rx [Heparin Sodium] Piperacillin-Tazobactam [Zosyn] 3.375 gm IVPB Q8HR #84 each 07/06/23 07/17/23 Rx Allergies Allergy/AdvReac Type Severity Reaction Status Date / Time Sulfa (Sulfonamide Allergy Rash/Hives Verified 07/17/23 09:35 Antibiotics) Physical Exam Vitals: Vital Signs Temp Pulse Pulse Resp BP BP Pulse Ox 07/18/23 21:30 101 H 31 H 116/70 98 07/18/23 21:15 104 H 31 H 100/78 99 07/18/23 21:00 101 H 32 H 124/75 100 07/18/23 20:45 98 34 H 111/72 98 07/18/23 20:30 99 32 H 132/76 100 07/18/23 20:00 99 F 93 31 H 149/84 99 07/18/23 19:45 125 H 30 H 149/83 99 07/18/23 19:30 123 H 33 H 161/83 98 07/18/23 19:15 114 H 17 155/75 97 07/18/23 19:00 118 H 22 150/86 97 07/18/23 18:45 123 H 24 154/80 97 07/18/23 18:30 126 H 23 154/99 97 07/18/23 18:15 123 H 17 159/84 98 07/18/23 18:00 125 H 18 149/82 97 07/18/23 17:45 118 H 19 132/84 99 07/18/23 17:30 121 H 23 142/82 98 07/18/23 17:15 120 H 22 120/83 97 07/18/23 17:00 113 H 18 141/81 96 07/18/23 16:45 125 H 14 137/89 98 07/18/23 16:30 118 H 16 132/76 98 07/18/23 16:15 124 H 27 H 137/77 97 07/18/23 16:08 100.4 F H 124 H 18 137/77 98 07/18/23 08:55 111 H 20 07/18/23 06:59 98.2 F 111 H 17 110/69 98 07/18/23 01:23 98.7 F 123 H 20 95/60 99 Intake and Output 07/18/23 07/18/23 07/19/23 14:59 22:59 06:59 Intake Total 140 20.782 Output Total 590 60 Balance -450 -39.218 Intake: IV 140 20 Sodium Chloride 0.9% 1, 140 20 000 ml @ 20 mls/hr IV . Q24H MARIO Rx#:[id number] Intake, IV Titration 0.782 Amount Morphine Sulfate (100 mg/ 0.782 2 ml) 100 mg In Sodium Chloride 0.9% 100 ml @ 1 MG/HR 1.02 mls/hr IV . Q24H MARIO Rx#:[id number] Output: Urine 590 60 Other: Voiding Method Toilet Indwelling Catheter Urinal GENERAL EXAM: Unresponsive to any stimuli, flaccid extremities, agonal breathing. HEAD: Normocephalic and atraumatic EYES: Left pupil is fixed and dilated, right pupil remains 2 mm. NOSE: Clear with pink turbinates. THROAT: No erythema or exudates. NECK: No masses, no JVD. CHEST: No chest wall deformity. LUNGS: Equal air entry with no crackles, wheeze, rhonchi or dullness. On room air. Agonal breathing CVS: S1 and S2 normal with no audible murmur, regular rhythm. No extra heart grover nds ABDOMEN: Distended abdomen. No hepatosplenomegaly, active bowel sounds, no guarding or rigidity. SPINE: No scoliosis or deformity SKIN: No rashes CENTRAL NERVOUS SYSTEM: Completely comatose, does not follow commands, no response to painful stimuli, no decorticate or decerebrate posturing, flaccid extremities. No seizure like activity EXTREMITIES: There is no peripheral edema, clubbing, or cyanosis. Peripheral pulses are intact. Left arm PICC line Results - Laboratory Findings CBC and BMP: 07/18/23 15:33 07/18/23 15:33 PT/INR, D-dimer PT 15.4 sec (10.0-12.5) H 07/18/23 15:33 INR 1.5 (<1.2) H 07/18/23 15:33 Abnormal lab findings: Abnormal Labs 07/16/23 07/16/23 07/16/23 20:20 20:20 20:20 WBC RBC 2.54 L Hgb 8.4 L Hct 26.5 L MCV 104.2 H MCHC RDW 17.9 H Plt Count 117 L Neutrophils # Lymphocytes # 0.4 L Monocytes # Eosinophils # NRBC/100 WBC Diff PT INR APTT Sodium 133 L Chloride 110 H Carbon Dioxide 12 L BUN 23 H BUN/Creatinine Ratio Glucose POC Glucose (mg/dL) Plasma Lactic Acid Maximilian 5.7 H* Calcium 7.8 L Magnesium AST 109 H ALT Alkaline Phosphatase 168 H Troponin I C-Reactive Protein Total Protein 5.9 L Albumin 2.6 L Procalcitonin 07/17/23 07/17/23 07/17/23 11:48 14:54 14:54 WBC RBC Hgb Hct MCV MCHC RDW Plt Count Neutrophils # Lymphocytes # Monocytes # Eosinophils # NRBC/100 WBC Diff PT INR APTT Sodium Chloride Carbon Dioxide BUN BUN/Creatinine Ratio Glucose POC Glucose (mg/dL) 135 H Plasma Lactic Acid Maximilian Calcium Magnesium AST ALT Alkaline Phosphatase Troponin I C-Reactive Protein 6.9 H Total Protein Albumin Procalcitonin 23.80 H 07/17/23 07/17/23 07/17/23 16:44 21:40 21:40 WBC 1.7 L RBC 2.65 L Hgb 8.5 L Hct 27.7 L MCV 104.2 H MCHC 30.6 L RDW 18.0 H Plt Count 88 L Neutrophils # Lymphocytes # 0.2 L Monocytes # Eosinophils # NRBC/100 WBC Diff PT INR APTT Sodium Chloride 119 H Carbon Dioxide 7 L* BUN 21 H BUN/Creatinine Ratio Glucose POC Glucose (mg/dL) 118 H Plasma Lactic Acid Maximilian Calcium 7.5 L Magnesium 1.4 L AST ALT Alkaline Phosphatase Troponin I C-Reactive Protein Total Protein Albumin Procalcitonin 07/18/23 07/18/23 07/18/23 05:10 05:10 05:10 WBC 1.93 L RBC 2.24 L Hgb 7.1 L Hct 22.3 L MCV 99.6 H MCHC 31.8 L RDW 18.2 H Plt Count 49 L Neutrophils # 1.69 L Lymphocytes # 0.17 L Monocytes # 0.06 L Eosinophils # 0 L NRBC/100 WBC Diff 0.02 H PT INR APTT Sodium Chloride 113 H Carbon Dioxide 13.6 L BUN BUN/Creatinine Ratio 25.30 H Glucose 118 H POC Glucose (mg/dL) Plasma Lactic Acid Maximilian Calcium 7.9 L Magnesium AST ALT Alkaline Phosphatase Troponin I C-Reactive Protein 6.30 H Total Protein Albumin Procalcitonin 49.40 H 07/18/23 07/18/23 07/18/23 05:45 15:33 15:33 WBC 1.6 L RBC 2.37 L Hgb 7.7 L Hct 24.7 L MCV 104.2 H MCHC RDW 18.4 H Plt Count 45 L Neutrophils # 1.2 L Lymphocytes # 0.2 L Monocytes # Eosinophils # NRBC/100 WBC Diff PT 15.4 H INR 1.5 H APTT 64.7 H Sodium Chloride Carbon Dioxide BUN BUN/Creatinine Ratio Glucose POC Glucose (mg/dL) 115 H Plasma Lactic Acid Maximilian Calcium Magnesium AST ALT Alkaline Phosphatase Troponin I C-Reactive Protein Total Protein Albumin Procalcitonin 07/18/23 07/18/23 15:33 15:33 WBC RBC Hgb Hct MCV MCHC RDW Plt Count Neutrophils # Lymphocytes # Monocytes # Eosinophils # NRBC/100 WBC Diff PT INR APTT Sodium Chloride 119 H Carbon Dioxide 12 L BUN 25 H BUN/Creatinine Ratio Glucose POC Glucose (mg/dL) Plasma Lactic Acid Maximilian Calcium 8.1 L Magnesium AST 310 H ALT 65 H Alkaline Phosphatase 182 H Troponin I 0.841 H* C-Reactive Protein Total Protein 5.2 L Albumin 2.2 L Procalcitonin - Diagnostic Findings Chest x-ray: image reviewed Assessment and Plan Assessment: Large acute left subdural hematoma with increasing left to right midline shift a nd subfalcine herniation. New hemorrhage which may be intraparenchymal in the region of the frontal parietal junction. There was also what appeared to be a new subdural hemorrhage measuring 0.5 cm in the depth extending from the left mid cranial fossa towards the previous subdural hemorrhage. Initial plan was transfer to tertiary care center, however, family has declined any further intervention. They wish to pursue comfort care measures. Acute febrile illness History of epidural abscess and discitis status post T10-L4 decompression epidural phlegmon evacuation and stabilization on 04/29/2023 followed by IV antibiotics and subsequent poor wound healing and wound dehiscence. More recent hospitalization for a incision and drainage with irrigation and debridement of the lumbar spine on 07/03/2023. Discharged to [facility] on 07/06/2023 with IV antibiotics, directed by infectious disease. Wound cultures were positive for Enterobacter Cloacae and Pseudomonas aeruginosa. Pancytopenia Coagulopathy, secondary to liver cirrhosis Non-anion gap metabolic acidosis Elevated troponins, possible non-ST elevation OK Liver cirrhosis with ascites and history of esophageal varices Diabetes mellitus type 2 Previous history of left total knee arthroplasty History of hypertension History of hyperlipidemia History of gout History of alcoholism Plan: Initial plan was for transfer to tertiary care center, and patient was accepted at [facility]. I have spoken to the patient's spouse and two sons who are at the bedside. Neurologist at our facility has also reviewed the case. I have answered all questions at length. The family, however, has since elected to forego transfer to a tertiary center. They do not want any further medical intervention or supportive care. They have requested that the patient be made comfort care. His overall prognosis is extremely poor, and I agree with this decision. Initiate comfort care measures I have personally seen and examined the patient, performed the documentation and the assessment and plan as written. Number of minutes spent on the visit:20 Time with Patient: Greater than 30
[2023-07-19 04:24] VITALS: TEMP 99
[2023-07-19 06:17] VITALS: BP 81/44; PULSE 103; RESP 12
--- NOTE | 2023-07-19 12:10 | P.PN ---
Progress Note - Text Progress Note Date: 07/19/23 Consult placed for pancytopenia. Patient was made comfort care and this morning prior to consult visit
--- NOTE | 2023-07-19 13:27 | P.PN ---
Progress Note - Text Progress Note Date: 07/19/23 Consult placed for subdural hematoma. Patient had been made comfort care last night as per earlier discussion of family members with Dr. Doyle Curtis. Patient before could be seen.
--- NOTE | 2023-07-19 21:04 | P.DS ---
Providers Date of admission: 07/17/23 04:03 Attending physician: Alan Lange Consults: 07/17/23 04:08 Consult Physician Urgent Consulting Provider: Guillaume Narayanan Consult Reason/Comments: Hx discitis/epidural abscess fever Do you want consulting provider notified?: Yes Consult Physician Urgent Consulting Provider: Sharon Davenport Consult Reason/Comments: Hx epidural abscess/discitis outpt zosyn fever Do you want consulting provider notified?: Yes 07/18/23 11:26 Consult Physician Routine Consulting Provider: Jesus Corral Consult Reason/Comments: pancytopenia Do you want consulting provider notified?: Yes 07/18/23 15:28 Consult Physician Routine Consulting Provider: Jyoti Barrera Consult Reason/Comments: ICU management Do you want consulting provider notified?: Yes 07/18/23 15:45 Consult Physician Stat Consulting Provider: Doyle Curtis Consult Reason/Comments: left subdural hematoma Do you want consulting provider notified?: Yes Primary care physician: Daryl Campbell Hospital Course: 1. Fever/sepsis; recent diagnosis of Streptococcus bacteremia - status post irrigation and debridement of thoracic or lumbar spine, status post ostial discitis treatment with fusion and epidural abscess evacuation, T10- L4 posterior lateral decompression and fusion, L1-L2 interbody fusion for epidural abscess; discharged home on 07/06/2023 2. Hypertension; 25 mg twice daily 3. Hyperlipidemia; 4. Diabetes mellitus; 5. Hyperuricemia/gout; 6. Vitamin D deficiency; 7. Osteoarthritis; Flexeril 5 mg 3 times daily; Logan 7.5 mg every 6 hours as neede 8. acute subdural hematoma. 9 coagulopathy 10. Liver cirrhosis Hospital course: 67-year-old male with a past medical history significant for GERD, hypertension, hyperlipidemia, diabetes mellitus, cirrhosis with recent discharge from the hospital secondary to Streptococcus bacteremia status post irrigation and debridement of thoracic or lumbar spine, status post ostial discitis treatment with fusion and epidural abscess evacuation discharged home on 07/06/2023 presenting to the ED with complaints of fever over the last 2 to 3 days. Reports no increases in back pain. Reports that he has been continuing IV antibiotics (Zosyn) at his facility. Does note some abdominal pain which he states is severe in nature and is chronic in nature. There was some bruising noted on examination and patient reports that this has been there for a while and has not recently increased in severity. Aside from fever and chills and note of minimal abdominal pain, patient denies any other complaints. No chest pains or shortness of breath. No nausea vomiting diarrhea. CBC shows no elevation in white blood cell count. Chemistry panel is largely unremarkable however lactic acid initially elevated at 5.7 however after fluid resuscitation repeat at 1.5. Serology panel unremarkable. Chest x-ray revealed no evidence of pneumonia. Urinalysis is pending. At this time, 3:39 AM, definite source of fever not identified. Pressors were considered given patient's hypotension in the high 70s to 80s systolic however after fluid resuscitation patient's blood pressure at 100 systolic with a mean pressure at 77. Repeat blood cultures were obtained. Patient was started on Levaquin. He will be admitted with consultations to infectious disease and orthopedics. --Patient had episode of fever and chills through the night; continues to complain of feeling cold; patient is a poor historian; does say he has abdominal pain when inquired -- Abdomen is distended with mild diffuse tenderness; we will order ultrasound paracentesis and send fluid for lab studies -Will obtain chest x-ray and a BNP -Patient remains on IV antibiotics 07/19/2023 Patient remains in the ICU on co obtund and nonverbal multiple family members at bedside Patient was placed on morphine drip in the morning Patient was made comfort care by family member Patient eventually , please refer to nurse note for more details Physical exam Gen: patient is nonverbal obtunded CVS: S1-S2, RRR, no murmur Lungs: B/L CTA, no wheezing Abdomen: soft, no distention, no tenderness, positive bowel sounds Extremity: no leg edema or induration Patient Condition at Discharge: Fair Plan - Discharge Summary Discharge Rx Participant: No New Discharge Prescriptions: No Action allopurinoL [Zyloprim] 300 mg PO DAILY Colesevelam [Welchol] 1,875 mg PO AC-SUPPER Aspirin [Adult Low Dose Aspirin EC] 81 mg PO DAILY Ascorbic Acid [Vitamin C] 1,000 mg PO DAILY Acetaminophen Tab [Tylenol] 650 mg PO Q6HR PRN tab PRN Reason: Fever And/ Or Pain Furosemide [Lasix] 40 mg PO DAILY Lactulose [Cephulac] 20 gm PO BID bisacodyL [Dulcolax] 10 mg RECTAL DAILY PRN PRN Reason: Constipation Ferrous Sulfate [Iron (65 MG Elemental)] 325 mg PO BID Ipratropium-Albuterol Nebulize [Duoneb 0.5 mg-3 mg/3 ml Soln] 3 ml INHALATION RT-QID PRN PRN Reason: Shortness Of Breath Hydrocortisone Cream [Hydrocortisone 1% Cream] 1 applic TOPICAL BID PRN PRN Reason: Itching of feet Fluticasone Propionate [Fluticasone Propionate [place] 50 mcg Nasal [place]] 2 sprays EA NOSTRIL DAILY Piperacillin-Tazobactam [Zosyn] 3.375 gm IVPB Q8HR #84 each Omeprazole 20 mg PO BID Cholecalciferol [Vitamin D3 (25 Mcg = 1000 Iu)] 50 mcg PO DAILY guaiFENesin SYRUP 100MG/5ML [Robitussin] 10 ml PO Q6HR PRN PRN Reason: Cough Furosemide [Lasix] 80 mg PO DAILY Multivitamin/Iron/Folic Acid [Centrum Adults Tablet] 1 tab PO DAILY Na Phos,M-B/Na Phos,Di-Ba [Fleet Adult] 133 ml RECTAL DAILY PRN PRN Reason: Constipation Magnesium Hydroxide [Milk of Magnesia Concentrate] 7,200 mg PO Q48H PRN PRN Reason: Constipation Magnesium Oxide [Mag-Ox] 400 mg PO BID Sennosides-Docusate Sodium [Senokot-S] 2 tab PO DAILY Spironolactone [Aldactone] 50 mg PO BID Losartan [Cozaar] 25 mg PO BID Natural Tears 2 drop BOTH EYES TID PRN PRN Reason: Dry Eye(S) Artificial Tears-Hypromellose [Artificial Tear Drops] 2 drops BOTH EYES QID PRN ml PRN Reason: Dry Eye(S) Cyclobenzaprine [Flexeril] 5 mg PO TID PRN tab PRN Reason: Muscle Spasm Heparin Sodium,Porcine (1 ml) [Heparin Sodium] 5,000 unit SQ Q12HR each HYDROcodone/APAP 7.5-325MG [Logan 7.5-325] 1 tab PO Q6HR PRN #12 tab PRN Reason: Pain Discharge Medication List Colesevelam [Welchol] 1,875 mg PO AC-SUPPER 09/18/14 [History] allopurinoL [Zyloprim] 300 mg PO DAILY 09/18/14 [History] Omeprazole 20 mg PO BID 03/07/21 [History] Ascorbic Acid [Vitamin C] 1,000 mg PO DAILY 01/28/23 [History] Aspirin [Adult Low Dose Aspirin EC] 81 mg PO DAILY 01/28/23 [History] Cholecalciferol [Vitamin D3 (25 Mcg = 1000 Iu)] 50 mcg PO DAILY 04/22/23 [History] Acetaminophen Tab [Tylenol] 650 mg PO Q6HR PRN tab 05/07/23 [Rx] Ferrous Sulfate [Iron (65 MG Elemental)] 325 mg PO BID 06/03/23 [History] Furosemide [Lasix] 40 mg PO DAILY 06/03/23 [History] Furosemide [Lasix] 80 mg PO DAILY 06/03/23 [History] Lactulose [Cephulac] 20 gm PO BID 06/03/23 [History] Magnesium Hydroxide [Milk of Magnesia Concentrate] 7,200 mg PO Q48H PRN 06/03/23 [History] Multivitamin/Iron/Folic Acid [Centrum Adults Tablet] 1 tab PO DAILY 06/03/23 [History] Na Phos,M-B/Na Phos,Di-Ba [Fleet Adult] 133 ml RECTAL DAILY PRN 06/03/23 [History] bisacodyL [Dulcolax] 10 mg RECTAL DAILY PRN 06/03/23 [History] guaiFENesin SYRUP 100MG/5ML [Robitussin] 10 ml PO Q6HR PRN 06/03/23 [History] Ipratropium-Albuterol Nebulize [Duoneb 0.5 mg-3 mg/3 ml Soln] 3 ml INHALATION RT-QID PRN 06/10/23 [History] Losartan [Cozaar] 25 mg PO BID 06/10/23 [History] Magnesium Oxide [Mag-Ox] 400 mg PO BID 06/10/23 [History] Sennosides-Docusate Sodium [Senokot-S] 2 tab PO DAILY 06/10/23 [History] Spironolactone [Aldactone] 50 mg PO BID 06/10/23 [History] Fluticasone Propionate [Fluticasone Propionate [place] 50 mcg Nasal [place]] 2 sprays EA NOSTRIL DAILY 07/01/23 [History] Hydrocortisone Cream [Hydrocortisone 1% Cream] 1 applic TOPICAL BID PRN 07/01/23 [History] Natural Tears 2 drop BOTH EYES TID PRN 07/01/23 [History] Artificial Tears-Hypromellose [Artificial Tear Drops] 2 drops BOTH EYES QID PRN ml 07/06/23 [Rx] Cyclobenzaprine [Flexeril] 5 mg PO TID PRN tab 07/06/23 [Rx] HYDROcodone/APAP 7.5-325MG [Logan 7.5-325] 1 tab PO Q6HR PRN #12 tab 07/06/23 [Rx] Heparin Sodium,Porcine (1 ml) [Heparin Sodium] 5,000 unit SQ Q12HR each 07/06/23 [Rx] Piperacillin-Tazobactam [Zosyn] 3.375 gm IVPB Q8HR #84 each 07/06/23 [Rx] Follow up Appointment(s)/Referral(s): Farhana Monahan, [NON-STAFF] - 1-2 days Discharge Disposition: - Preliminary Cause of Preliminary Cause of : acute subdurat hematoma
== END 2023-07-19 11:30 | disposition expired | DRG 871 ==
LOC: SUPCPDRO 19:38 → EC 19:38 → 4SSUR 07-17 04:03 → 3SCARD 07-18 14:45 → 2SICU 07-18 14:57
PROVIDERS: ADMIT Hospitalist; ATTEND Hospitalist
DX: A41.9 Sepsis, unspecified organism (principal); G93.5 Compression of brain; I62.01 Nontraumatic acute subdural hemorrhage; I61.8 Other nontraumatic intracerebral hemorrhage; I21.4 Non-ST elevation (NSTEMI) myocardial infarction; R40.2A Nontraumatic coma due to underlying condition; D61.818 Other pancytopenia; D68.4 Acquired coagulation factor deficiency; E87.20 Acidosis, unspecified; R18.8 Other ascites; Z66 Do not resuscitate; Z51.5 Encounter for palliative care; Z88.2 Allergy status to sulfonamides; E55.9 Vitamin D deficiency, unspecified; E78.5 Hyperlipidemia, unspecified; H66.90 Otitis media, unspecified, unspecified ear; G89.29 Other chronic pain; I48.91 Unspecified atrial fibrillation; R19.7 Diarrhea, unspecified; K72.10 Chronic hepatic failure without coma; K74.60 Unspecified cirrhosis of liver; M10.9 Gout, unspecified; M17.0 Bilateral primary osteoarthritis of knee; R29.720 NIHSS score 20; Z86.010 Personal history of colon polyps; Z87.19 Personal history of other diseases of the digestive system; K21.9 Gastro-esophageal reflux disease without esophagitis; Z79.82 Long term (current) use of aspirin; Z79.899 Other long term (current) drug therapy; Z86.61 Personal history of infections of the central nervous system; Z96.652 Presence of left artificial knee joint; Z98.42 Cataract extraction status, left eye; Z98.41 Cataract extraction status, right eye; Z90.49 Acquired absence of other specified parts of digestive tract
CPT/HCPCS: 70450; 70496; 70498; 71045; 71046; 80048; 80053; 82140; 83605; 83735; 83880; 84145; 84484; 85025; 85610; 85652; 85730; 86140; 87040; 87045; 87046; 87324; 87636; 94640; 96361; 96365; 96366; 99291